=== PATIENT | male | born 1965 | race American Indian/Alaskan Native ===

== ENCOUNTER 2019-12-27 12:38 | Outpatient (REF) | payer OTHER, SELFPAY | END 2019-12-27 12:39 | disposition home or self-care (01) | LOC: HO.LAB 12:38 | PROVIDERS: Visit Provider Internal Medicine | DX: Z20.828 Contact with and (suspected) exposure to other viral communicable diseases (principal) | CPT/HCPCS: 87635 ==

== ENCOUNTER → 2020-01-03 13:04 | Outpatient (BNVA) | payer OTHER, SELFPAY | PROVIDERS: PCP Family Medicine; Referring Provider Family Medicine; Visit Provider Internal Medicine Endocrinology, Diabetes & Metabolism | DX: E11.65 Type 2 diabetes mellitus with hyperglycemia (principal); E11.21 Type 2 diabetes mellitus with diabetic nephropathy; Z79.4 Long term (current) use of insulin; E78.5 Hyperlipidemia, unspecified; I10 Essential (primary) hypertension; E55.9 Vitamin D deficiency, unspecified; E66.9 Obesity, unspecified; Z68.38 Body mass index [BMI] 38.0-38.9, adult; E21.3 Hyperparathyroidism, unspecified | CPT/HCPCS: 82947; 99212 ==

== ENCOUNTER → 2020-01-16 19:54 | Outpatient (REF) | payer OTHER, SELFPAY | LOC: HO.SL 19:54 | PROVIDERS: PCP Family Medicine; Visit Provider Psychiatry & Neurology Neurology | DX: G47.33 Obstructive sleep apnea (adult) (pediatric) (principal) | CPT/HCPCS: 95811 ==

== ENCOUNTER → 2020-01-29 08:31 | Outpatient (BNVA) | payer OTHER, SELFPAY | PROVIDERS: PCP Family Medicine; Referring Provider Family Medicine; Visit Provider Psychiatry & Neurology Neurology | DX: E11.21 Type 2 diabetes mellitus with diabetic nephropathy (principal); E78.5 Hyperlipidemia, unspecified; G47.33 Obstructive sleep apnea (adult) (pediatric); Z87.891 Personal history of nicotine dependence | CPT/HCPCS: Q3014 ==

== ENCOUNTER 2020-02-12 12:02 | Outpatient (REF) | payer OTHER, SELFPAY | END 2020-02-12 12:03 | disposition home or self-care (01) | LOC: HO.LAB 12:02 | PROVIDERS: Visit Provider Internal Medicine | DX: Z20.828 Contact with and (suspected) exposure to other viral communicable diseases (principal) | CPT/HCPCS: C9803; U0003 ==

== ENCOUNTER → 2020-03-25 11:02 | Outpatient (BNVA) | payer OTHER, SELFPAY | PROVIDERS: PCP Family Medicine; Visit Provider Psychiatry & Neurology Neurology | DX: G47.33 Obstructive sleep apnea (adult) (pediatric) (principal) | CPT/HCPCS: Q3014 ==

== ENCOUNTER 2020-04-03 11:08 | Outpatient (REF) | payer OTHER, SELFPAY | END 2020-04-03 11:09 | disposition home or self-care (01) | LOC: HO.LAB 11:08 | PROVIDERS: PCP Family Medicine; Visit Provider Internal Medicine | DX: Z20.822 Contact with and (suspected) exposure to COVID-19 (principal) | CPT/HCPCS: 36415; C9803; U0003 ==

== ENCOUNTER 2020-04-22 11:18 | Outpatient (REF) | payer OTHER, SELFPAY | END 2020-04-22 11:19 | disposition home or self-care (01) | LOC: HO.LAB 11:18 | PROVIDERS: PCP Family Medicine; Visit Provider Internal Medicine | DX: Z20.822 Contact with and (suspected) exposure to COVID-19 (principal) | CPT/HCPCS: 36415; C9803; U0003; U0005 ==

== ENCOUNTER 2020-04-30 09:54 | Outpatient (REF) | payer OTHER, SELFPAY | END 2020-04-30 09:55 | disposition home or self-care (01) | LOC: HO.LAB 09:54 | PROVIDERS: PCP Family Medicine; Visit Provider Internal Medicine | DX: Z20.822 Contact with and (suspected) exposure to COVID-19 (principal) | CPT/HCPCS: 36415; C9803; U0003; U0005 ==

== ENCOUNTER → 2020-05-20 11:16 | Outpatient (BNVA) | payer OTHER, SELFPAY | PROVIDERS: PCP Family Medicine; Visit Provider Psychiatry & Neurology Neurology | DX: G47.33 Obstructive sleep apnea (adult) (pediatric) (principal); E66.9 Obesity, unspecified; Z87.891 Personal history of nicotine dependence | CPT/HCPCS: Q3014 ==

== ENCOUNTER 2020-05-21 19:23 | Emergency (ER) | payer OTHER, SELFPAY ==
--- NOTE | 2020-05-21 | ECG_ITS ---
Test Reason : CHEST PAIN Blood Pressure : / mmHG Vent. Rate : 113 BPM Atrial Rate : 241 BPM P-R Int : 000 ms QRS Dur : 088 ms QT Int : 350 ms P-R-T Axes : 000 -19 035 degrees QTc Int : 480 ms Atrial fibrillation with rapid ventricular response Abnormal ECG When compared with ECG of 09-MAR-2019 12:01, Atrial fibrillation has replaced Sinus rhythm Referred By: Generic ED Physician Electronically Signed By:ARUN WEATHERS MD
[2020-05-21 19:42] VITALS: BP 115/87; PULSE 105; RESP 16; TEMP 36.7; O2SAT 97
== END 2020-05-21 23:22 | disposition left against medical advice (07) ==
PROVIDERS: Emergency Provider Emergency Medicine; PCP Family Medicine
DX: I10 Essential (primary) hypertension (principal)
CPT/HCPCS: 93005; 99283

== ENCOUNTER 2020-06-02 10:50 | Outpatient (REF) | payer OTHER, SELFPAY ==
[2020-06-02 12:41] LABS: Anion Gap 16 (12-20); Blood Urea Nitrogen 15 mg/dL (9-16); Calcium 8.6 mg/dL (8.4-10.2); Carbon Dioxide 24 mmol/L (22-29); Chloride 104 mmol/L (96-108); Estimated Glomerular Filt Rate > 60; Glucose Random 248 mg/dL (60-115); Potassium 4.1 mmol/L (3.3-5.1); Sodium 140 mmol/L (135-145)
== END 2020-06-02 10:51 | disposition home or self-care (01) ==
LOC: HO.LAB 10:50
PROVIDERS: PCP Family Medicine; Visit Provider Internal Medicine
DX: I48.0 Paroxysmal atrial fibrillation (principal); I48.3 Typical atrial flutter; I42.8 Other cardiomyopathies; R07.2 Precordial pain; I10 Essential (primary) hypertension; E11.8 Type 2 diabetes mellitus with unspecified complications; E66.01 Morbid (severe) obesity due to excess calories; G47.33 Obstructive sleep apnea (adult) (pediatric)
CPT/HCPCS: 36415; 80048; 93005; 99212

== ENCOUNTER → 2020-07-15 14:06 | Outpatient (BNVA) | payer OTHER, SELFPAY | PROVIDERS: PCP Family Medicine; Visit Provider Internal Medicine Endocrinology, Diabetes & Metabolism | DX: E11.65 Type 2 diabetes mellitus with hyperglycemia (principal); E11.21 Type 2 diabetes mellitus with diabetic nephropathy; Z79.4 Long term (current) use of insulin; E78.5 Hyperlipidemia, unspecified; E55.9 Vitamin D deficiency, unspecified; E66.9 Obesity, unspecified; I10 Essential (primary) hypertension | CPT/HCPCS: 82947; 99212 ==

== ENCOUNTER 2020-07-15 14:43 | Outpatient (REF) | payer OTHER, SELFPAY ==
[2020-07-15 15:14] LABS: COVID-19 Test Negative (Negative)
== END 2020-07-15 14:44 | disposition home or self-care (01) ==
LOC: HO.LAB 14:43
PROVIDERS: Visit Provider Internal Medicine
DX: Z20.822 Contact with and (suspected) exposure to COVID-19 (principal)
CPT/HCPCS: 36415; 87635; C9803

== ENCOUNTER → 2020-11-05 08:29 | Outpatient (BNVA) | payer OTHER, SELFPAY | PROVIDERS: PCP Family Medicine; Referring Provider Family Medicine; Visit Provider Internal Medicine | DX: I48.0 Paroxysmal atrial fibrillation (principal); I48.3 Typical atrial flutter; I42.8 Other cardiomyopathies; I10 Essential (primary) hypertension; R07.2 Precordial pain; E11.8 Type 2 diabetes mellitus with unspecified complications; E66.01 Morbid (severe) obesity due to excess calories; G47.33 Obstructive sleep apnea (adult) (pediatric) | CPT/HCPCS: 93005; 99212 ==

== ENCOUNTER → 2020-11-18 13:34 | Outpatient (BNVA) | payer OTHER, SELFPAY | PROVIDERS: PCP Family Medicine; Visit Provider Nurse Practitioner Gerontology | DX: E11.65 Type 2 diabetes mellitus with hyperglycemia (principal); E11.21 Type 2 diabetes mellitus with diabetic nephropathy; E78.5 Hyperlipidemia, unspecified; E55.9 Vitamin D deficiency, unspecified; E66.9 Obesity, unspecified; I10 Essential (primary) hypertension; Z79.4 Long term (current) use of insulin | CPT/HCPCS: 82947; 83036; 99212 ==

== ENCOUNTER 2020-12-08 11:20 | Outpatient (REF) | payer OTHER, SELFPAY | END 2020-12-08 11:21 | disposition home or self-care (01) | LOC: HO.LAB 11:20 | PROVIDERS: PCP Family Medicine; Visit Provider Internal Medicine | DX: Z20.822 Contact with and (suspected) exposure to COVID-19 (principal) | CPT/HCPCS: U0003; U0005 ==

== ENCOUNTER → 2020-12-10 12:46 | Outpatient (REF) | payer OTHER, SELFPAY ==
--- NOTE | 2020-12-10 12:50 | CA_ITS ---
Transthoracic Echocardiogram Patient (Last, First, Middle): Abraham Zhang, Gender: Male Date of : 1965 Age: 55 Procedure Date: 12/10/2020 Procedure Type: Transthoracic Echocardiogram Location: OP Height: 182.88 cm Weight: 117.94 kg BSA: 2.38 m2 Heart Rate: bpm BP: 120 / 70 mmHg Commonwealth Attorney: SUDARSHAN Referring MD: Matias Marcelino MD Symptoms: I42.8 - Other cardiomyopathies Study Quality: Technically Difficult/Contrast ECG Rhythm: Sinus Conclusions: - The left ventricular systolic function is normal. The calculated ejection fraction is 57% by biplane method. - No obvious valvular pathology seen on this study. - There is mild mitral annular calcification. Findings Procedure Information Contrast agent, definity, is being given per protocol without apparent complications. Left Ventricle Normal left ventricular cavity size. There is mildly increased left ventricular wall thickness. The left ventricular systolic function is normal. The calculated ejection fraction is 57% by biplane method. There is no evidence of regional wall motion abnormalities. Diastolic function is normal for age. Right Ventricle Normal right ventricular cavity size and systolic function. Atria Both atria are normal in size. Aortic Valve The aortic valve structure and function is likely normal. There is no aortic valve stenosis. There is no aortic valve regurgitation. Mitral Valve There is mild mitral annular calcification. There is no mitral valve regurgitation. There is no mitral valve stenosis. Pulmonic Valve The pulmonic valve was not well visualized. Tricuspid Valve Normal tricuspid valve structure. There is no tricuspid valve regurgitation. Tricuspid regurgitation envelope is inadequate for calculation of right ventricular systolic pressure. Great Vessels The aortic annulus, sinuses of valsalva, and asc aorta are normal in size. Venous The inferior vena cava is normal in size and collapses greater than 50% with inspiration. Pericardium/Pleural There is no evidence of pericardial effusion. Prior Study Comparison No significant change compared to prior study dated: 10/25/2019. Recommendations, Care & Conclusions No obvious valvular pathology seen on this study. Measurements 2D Linear Measurements IVSd: 1.13 0.6-0.9/0.6-1.0 cm LVIDd: 5.41 3.9-5.3/4.2-5.9 cm LVIDd Index: 2.27 2.4-3.2/2.2-3.1 cm/m2 LVIDs: 3.82 2.0-3.6 cm LVPWd: 1.13 0.7-1.1 cm Ao Root: 4.20 2.1-3.5 cm LA Diam: 3.60 2.7-3.8/3.0-4.0 cm LAIDs Index: 1.51 1.5-2.3 cm/m2 LV Mass: 304.59 67-162/88-224 g LV Mass Index: 127.98 43-95/49-115 g/m2 LVOT Diam: 2.40 3.0+(-)1.3 cm 2D Systolic Function EF 4C: 55.20 >55% EF 2C: 56.80 >55% EF BiP: 56.60 >55% Mitral Valve MV Pk E: 0.76 MV PK A: 0.60 MV Decel Time: 176.00 E/A: 1.30 E'Lateral: 11.60 E'Medial: 7.62 E/E' Med: 9.90 E/E' Lat: 6.50 PHT: 51.00 MVA PHT: 4.31 Decel Blount: 4.32 Aortic Valve AoV Pk Mohit: 1.22 AoV Mn Mohit: 0.95 AoV VTI: 0.23 AoV Pk Grad: 6.00 Aov Mn Grad: 4.00 KATIANA Cont.VTI: 3.42 LVOT LVOT Pk Mohit: 0.90 LVOT Mn Mohit: 0.64 LVOT VTI: 0.17 LVOT Pk Grad: 3.00 LVOT Mn Grad: 2.00 LVOT Diam: 2.40 LVOT Area: 4.52 Diastolic Function MV Pk E: 0.76 MV Pk A: 0.60 E/A: 1.30 E'Medial: 7.62 E/E' Med: 9.90 E' Laterial: 11.60 E/E' Lat: 6.50 Right Ventricle TAPSE (mm): 1.86 TVS' Mohit: 14.00 Tricuspid Valve RA Press: 3.00 Great Vessels Aorta Ao Root-2D: 4.20 2.0-3.7 cm Ao Asc: 3.70 2.1-3.4 cm Ao Arch: 3.30 Updated in Other Vendor System with Status of Final Matias Marcelino MD electronically signed on 12/11/2020 2:58:11 PM with status of Final
--- NOTE | 2020-12-10 14:00 | HM_ITS ---
Conclusion: 1. Patient was monitor for total period of 3 days 2. Underlying rhythm is sinus rhythm intermittent atrial fibrillation/flutter. Total burden of atrial flutter fibrillation at 41.16%. 3. Average heart rate is 91 beats per minute with inadequate rate control during atrial tachycardia/flutter, with longest episode of atrial flutter/tachycardia of 22 hours and 18 minutes 4. Doing sinus rhythm the heart rate is well controlled 5. No significant pauses noted 6. Total of 2141 PACs or cardiac bili 0.7% PACs occurring for occasional PACs 7. Patient reported 1 event correlates with sinus rhythm. MTDD
== END ==
LOC: HO.CARD 12:46
PROVIDERS: Visit Provider Internal Medicine
DX: I48.0 Paroxysmal atrial fibrillation (principal); I42.8 Other cardiomyopathies; J45.909 Unspecified asthma, uncomplicated
CPT/HCPCS: 93242; 93306; Q9957

== ENCOUNTER 2021-01-18 20:46 | Emergency (ER) | payer OTHER, SELFPAY ==
--- NOTE | 2021-01-18 | ECG_ITS ---
Test Reason : CHEST PAIN Blood Pressure : / mmHG Vent. Rate : 102 BPM Atrial Rate : 000 BPM P-R Int : 000 ms QRS Dur : 094 ms QT Int : 378 ms P-R-T Axes : 000 -14 025 degrees QTc Int : 492 ms Atrial fibrillation with rapid ventricular response Abnormal ECG When compared with ECG of 18Jan2021 Atrial fibrillation has replaced Atrial flutter with [address] less depressed in Lateral leads Referred By: Seda Klein Electronically Signed By:ALISIA MANN MD
--- NOTE | ~2021-01-18 | XR_ITS ---
EXAMINATION: XR CHEST CLINICAL INFORMATION: Chest pain. COMPARISON: 03/07/2019 portable chest. TECHNIQUE: Frontal view of the chest was obtained. FINDINGS: No significant abnormality is noted involving the heart, lungs, mediastinum, bony thorax or soft tissues. XR/XR chest 1V IMPRESSION: No acute cardiopulmonary process.
[2021-01-18 20:55] VITALS: BP 117/85; PULSE 155; RESP 18; TEMP 36.6; O2SAT 98; BMI 29.8
--- NOTE | 2021-01-18 21:15 | ED.CHESTPAIN ---
HPI - Chest Pain General Chief Complaint: Chest Pain Stated Complaint: chest pain Time Seen by Provider: 01/18/21 21:15 Source: patient Mode of arrival: ambulatory History of Present Illness HPI narrative: 55-year-old male with history of atrial flutter, diabetes, asthma who presents with onset of racing heart while watching TV. This was associated with some dizziness, shortness of breath but he denies any diaphoresis or nausea or chest pain. Patient states that he has recently had a few episodes of diarrhea that have resolved since yesterday and reports he has had some difficulty with urinating as well. Otherwise, he has received both COVID-19 vaccines and has otherwise been in good health and denies any alcohol or drug use. Related Data Home Medications Medication Instructions Recorded Confirmed alcohol swabs 0 pad TOPICAL 01/03/20 11/18/20 dabigatran etexilate 150 mg capsule 150 mg PO BID 01/03/20 11/18/20 divalproex 500 mg tablet,extended 0 mg PO 01/03/20 11/18/20 release 24 hr fluticasone propionate 50 1 spray INTRANASAL DAILY 01/03/20 11/18/20 mcg/actuation nasal spray,suspension melatonin 3 mg tablet 3 mg PO BEDTIME PRN 01/03/20 11/18/20 omeprazole 40 mg capsule,delayed 40 mg PO QAM PRN 01/03/20 11/18/20 release melatonin 5 mg tablet 5 mg PO BEDTIME PRN 11/18/20 11/18/20 Previous Rx's Medication Instructions Recorded atorvastatin 80 mg tablet 80 mg PO DAILY 90 Days #90 tab 07/15/20 cholecalciferol (vitamin D3) 50 50 mcg PO DAILY 90 Days #90 cap 07/15/20 mcg (2,000 unit) capsule dulaglutide 3 mg/0.5 mL 3 mg (0.5 mL) SUBCUT QWEEK 30 Days 07/15/20 subcutaneous pen [facility] lisinopril 5 mg tablet 5 mg PO DAILY 90 Days #90 tab 07/15/20 pen needle, diabetic 32 gauge x #100 ea 07/15/20 sotalol 80 mg tablet 160 mg PO BID #120 tab 09/04/20 FreeStyle Lite Strips (blood sugar #120 ea NS 09/25/20 diagnostic) lancets 33 gauge #150 ea 09/25/20 insulin regular hum U-500 conc 80 unit (0.16 mL) SUBCUT .Twice a 10/07/20 day 30 Days #12 ml empagliflozin 25 mg tablet 25 mg PO QAM 30 Days #30 tab 12/26/20 ezetimibe 10 mg tablet 10 mg PO QAM 30 Days #30 tab 12/26/20 Allergies Allergy/AdvReac Type Severity Reaction Status Date / Time Penicillins [PENICILLINS] Allergy Unknown UNKNOWN Verified 11/18/20 14:19 metformin AdvReac Unknown diarrhea Verified 11/18/20 14:19 Review of Systems Review of Systems: Pertinent positives and negatives as stated in HPI 10 point review systems is otherwise negative. [facility] Past Medical History Source: nursing notes reviewed Medical History Diabetes type 2, uncontrolled Diabetic nephropathy associated with type 2 diabetes mellitus Dyslipidemia Essential hypertension Hyperparathyroidism Hypertension senior living (current) use of insulin Morbid obesity Nonischemic cardiomyopathy Obesity CLAUDIA (obstructive sleep apnea) Paroxysmal A-fib Type 2 diabetes mellitus with unspecified complications Typical atrial flutter Vitamin D deficiency Surgical History History of radiofrequency ablation procedure for cardiac arrhythmia Hx of colonoscopy Family History Family History Father Cancer Diabetes CVD (cardiovascular disease) Mother Diabetes Social History Social History Alcohol intake: former Patient Tobacco Use Status: Former Tobacco user Substance Use Type: Crack/Cocaine and Marijuana Advance Directives: No Advance Directives Information Provided: No Physical Exam Vital Signs: Vital Signs: Last Vital Signs Temp 98 F 01/18/21 20:55 Pulse 104 H 01/19/21 00:08 Resp 16 01/19/21 00:08 BP 92/65 01/19/21 00:08 Pulse Ox 94 01/19/21 00:08 Body Mass Index 29.8 VITAL SIGNS: Reviewed. GENERAL: Obese, Well developed, well nourished, in no acute distress. HEAD: Normocephalic/atraumatic EYES: PERRLA, EOMI EARS: Ext canals without abnormality NOSE: Nares patent bilateral OROPHARYNX: no oral lesions noted, posterior pharynx clear NECK: Supple, no adenopathy LUNGS: Normal breath sounds, no tachypnea, no wheeze/rhonchi/rales. SpO2<98> CARDIOVASCULAR: Regular rate and rhythm without noted murmurs, no JVD or lower extremity edema. ABDOMEN: Obese, Soft, non-tender, non-distended with bowel sounds. MUSCULOSKELETAL: No tenderness, deformities, or effusions noted on gross inspection. EXTREMITIES: No cyanosis, clubbing or edema. SKIN: Inspection of the skin reveals no rashes NEUROLOGIC: Alert and oriented x 4. Strength and sensation to light touch were grossly intact x 4. Course Course Course Narrative: 55-year-old male with history and clinical presentation consistent with on review of EKG atrial flutter with RVR and stable blood pressure. Review of all investigations without acute findings, notably serial troponins are negative and on review of the EKG there are no significant changes when compared to prior EKG. Patient received 5 mg of Lopressor with good response and all symptoms have since resolved on re-evaluation. All results and findings were discussed with the patient at bedside and he was otherwise discharged in stable condition with strong recommendations to call Cardiology in the morning to set up an appointment for re-evaluation and further outpatient management. MDM - Chest Pain Lab Data Result diagrams: 01/18/21 21:39 01/18/21 21:37 Labs: Lab Results 01/18/21 01/18/21 01/18/21 Range/Units 21:37 21:37 21:37 WBC (4.8-10.8) X10*3/uL RBC (4.60-5.80) X10*6/uL Hgb (14.0-18.0) g/dl Hct (42.0-52.0) % MCV (80.0-98.0) fL MCH (27.0-33.0) pg MCHC (31.0-36.0) g/dl RDW (11.0-16.0) % Plt Count (160-400) X10*3/uL MPV (9.4-12.4) fL Immature Gran % (Auto) (0.0-0.4) % Neut % (Auto) (45-73) % Lymph % (Auto) (20-40) % [place] % (Auto) (2-11) % Eos % (Auto) (0-4) % Baso % (Auto) (0-2) % Lymph # (Auto) (1.2-4.9) X10*3/uL [place] # (Auto) (0.1-1.2) X10*3/uL Eos # (Auto) (0.0-0.4) X10*3/uL Baso # (Auto) (0.0-0.2) X10*3/uL Abs Immat Gran (auto) (0.00-0.03) X10*3/uL Absolute Neuts (auto) (2.0-8.3) x10*3/uL Absolute Nucleated RBC (0.0-0.012) X10*3/uL Nucleated RBC % (auto) (0.0-0.2) /100WBC PT (9.9-13.0) SEC INR (0.9-1.1) APTT (24.1-38.0) SEC Sodium 139 (135-145) mmol/L Potassium 4.1 (3.3-5.1) mmol/L Chloride 106 (96-108) mmol/L Carbon Dioxide 24 (22-29) mmol/L Anion Gap 13 (12-20) BUN 18 H (9-16) mg/dL Creatinine 0.87 (0.5-1.4) mg/dL Estim Creat Clear Calc 114.5 Estimated GFR > 60 Random Glucose 262 H (60-115) mg/dL Calcium 9.2 D (8.4-10.2) mg/dL Magnesium 2.0 (1.6-2.6) mg/dL Total Bilirubin 0.3 (0.0-1.0) mg/dL AST 24 (5-37) U/L ALT 33 (0-40) U/L Alkaline Phosphatase 99 (39-117) U/L Troponin I High Sens < 3.5 (<3.5-35.0) ng/L B-Natriuretic Peptide 47 (<100) pg/mL Total Protein 7.1 (6.5-8.0) g/dL Albumin 4.1 (3.5-5.0) g/dL Urine Color Urine Appearance Urine pH (5.0-8.0) Ur Specific [place] (1.005-1.025) Urine Protein (NEG-TRACE) MG/DL Urine Glucose (UA) (NEG) MG/DL Urine Ketones (NEG) MG/DL Urine Blood (NEG) Urine Nitrite (NEG) Ur Leukocyte Esterase (NEG) Urine RBC (0) /HPF Urine WBC (0-4) /HPF Ur Squamous Epith Cells /LPF Urine Bacteria /LPF Urine Mucus /LPF Urine Opiates Screen (Not Detect) Urine Fentanyl Screen (Not Detect) Ur Barbiturates Screen (Not Detect) Ur Phencyclidine Scrn (Not Detect) Ur Amphetamines Screen (Not Detect) U Benzodiazepines Scrn (Not Detect) Urine Cocaine Screen (Not Detect) U Marijuana (THC) Screen (Not Detect) Ethyl Alcohol < 10 mg/dL 01/18/21 01/18/21 01/18/21 Range/Units 21:39 22:23 22:23 WBC 5.8 (4.8-10.8) X10*3/uL RBC 4.51 L (4.60-5.80) X10*6/uL Hgb 13.9 L (14.0-18.0) g/dl Hct 42.1 (42.0-52.0) % MCV 93.3 (80.0-98.0) fL MCH 30.8 (27.0-33.0) pg MCHC 33.0 (31.0-36.0) g/dl RDW 13.0 (11.0-16.0) % Plt Count 185 (160-400) X10*3/uL MPV 9.7 (9.4-12.4) fL Immature Gran % (Auto) 0.5 H (0.0-0.4) % Neut % (Auto) 49.3 (45-73) % Lymph % (Auto) 39.1 (20-40) % [place] % (Auto) 8.0 (2-11) % Eos % (Auto) 2.4 (0-4) % Baso % (Auto) 0.7 (0-2) % Lymph # (Auto) 2.3 (1.2-4.9) X10*3/uL [place] # (Auto) 0.5 (0.1-1.2) X10*3/uL Eos # (Auto) 0.1 (0.0-0.4) X10*3/uL Baso # (Auto) 0.0 (0.0-0.2) X10*3/uL Abs Immat Gran (auto) 0.03 (0.00-0.03) X10*3/uL Absolute Neuts (auto) 2.9 (2.0-8.3) x10*3/uL Absolute Nucleated RBC 0.000 (0.0-0.012) X10*3/uL Nucleated RBC % (auto) 0.0 (0.0-0.2) /100WBC PT 13.4 H (9.9-13.0) SEC INR 1.2 H (0.9-1.1) APTT 61.8 H* (24.1-38.0) SEC Sodium (135-145) mmol/L Potassium (3.3-5.1) mmol/L Chloride (96-108) mmol/L Carbon Dioxide (22-29) mmol/L Anion Gap (12-20) BUN (9-16) mg/dL Creatinine (0.5-1.4) mg/dL Estim Creat Clear Calc Estimated GFR Random Glucose (60-115) mg/dL Calcium (8.4-10.2) mg/dL Magnesium (1.6-2.6) mg/dL Total Bilirubin (0.0-1.0) mg/dL AST (5-37) U/L ALT (0-40) U/L Alkaline Phosphatase (39-117) U/L Troponin I High Sens (<3.5-35.0) ng/L B-Natriuretic Peptide (<100) pg/mL Total Protein (6.5-8.0) g/dL Albumin (3.5-5.0) g/dL Urine Color STRAW Urine Appearance HAZY Urine pH 6.5 (5.0-8.0) Ur Specific [place] <= 1.005 (1.005-1.025) Urine Protein NEG (NEG-TRACE) MG/DL Urine Glucose (UA) >=1000 H (NEG) MG/DL Urine Ketones NEG (NEG) MG/DL Urine Blood NEG (NEG) Urine Nitrite NEG (NEG) Ur Leukocyte Esterase NEG (NEG) Urine RBC 0 (0) /HPF Urine WBC 0 (0-4) /HPF Ur Squamous Epith Cells NONE /LPF Urine Bacteria TRACE /LPF Urine Mucus TRACE /LPF Urine Opiates Screen (Not Detect) Urine Fentanyl Screen (Not Detect) Ur Barbiturates Screen (Not Detect) Ur Phencyclidine Scrn (Not Detect) Ur Amphetamines Screen (Not Detect) U Benzodiazepines Scrn (Not Detect) Urine Cocaine Screen (Not Detect) U Marijuana (THC) Screen (Not Detect) Ethyl Alcohol mg/dL 01/18/21 01/19/21 Range/Units 22:23 00:20 WBC (4.8-10.8) X10*3/uL RBC (4.60-5.80) X10*6/uL Hgb (14.0-18.0) g/dl Hct (42.0-52.0) % MCV (80.0-98.0) fL MCH (27.0-33.0) pg MCHC (31.0-36.0) g/dl RDW (11.0-16.0) % Plt Count (160-400) X10*3/uL MPV (9.4-12.4) fL Immature Gran % (Auto) (0.0-0.4) % Neut % (Auto) (45-73) % Lymph % (Auto) (20-40) % [place] % (Auto) (2-11) % Eos % (Auto) (0-4) % Baso % (Auto) (0-2) % Lymph # (Auto) (1.2-4.9) X10*3/uL [place] # (Auto) (0.1-1.2) X10*3/uL Eos # (Auto) (0.0-0.4) X10*3/uL Baso # (Auto) (0.0-0.2) X10*3/uL Abs Immat Gran (auto) (0.00-0.03) X10*3/uL Absolute Neuts (auto) (2.0-8.3) x10*3/uL Absolute Nucleated RBC (0.0-0.012) X10*3/uL Nucleated RBC % (auto) (0.0-0.2) /100WBC PT (9.9-13.0) SEC INR (0.9-1.1) APTT (24.1-38.0) SEC Sodium (135-145) mmol/L Potassium (3.3-5.1) mmol/L Chloride (96-108) mmol/L Carbon Dioxide (22-29) mmol/L Anion Gap (12-20) BUN (9-16) mg/dL Creatinine (0.5-1.4) mg/dL Estim Creat Clear Calc Estimated GFR Random Glucose (60-115) mg/dL Calcium (8.4-10.2) mg/dL Magnesium (1.6-2.6) mg/dL Total Bilirubin (0.0-1.0) mg/dL AST (5-37) U/L ALT (0-40) U/L Alkaline Phosphatase (39-117) U/L Troponin I High Sens < 3.5 (<3.5-35.0) ng/L B-Natriuretic Peptide (<100) pg/mL Total Protein (6.5-8.0) g/dL Albumin (3.5-5.0) g/dL Urine Color Urine Appearance Urine pH (5.0-8.0) Ur Specific [place] (1.005-1.025) Urine Protein (NEG-TRACE) MG/DL Urine Glucose (UA) (NEG) MG/DL Urine Ketones (NEG) MG/DL Urine Blood (NEG) Urine Nitrite (NEG) Ur Leukocyte Esterase (NEG) Urine RBC (0) /HPF Urine WBC (0-4) /HPF Ur Squamous Epith Cells /LPF Urine Bacteria /LPF Urine Mucus /LPF Urine Opiates Screen Not Detected (Not Detect) Urine Fentanyl Screen Not Detected (Not Detect) Ur Barbiturates Screen Not Detected (Not Detect) Ur Phencyclidine Scrn Not Detected (Not Detect) Ur Amphetamines Screen Not Detected (Not Detect) U Benzodiazepines Scrn Not Detected (Not Detect) Urine Cocaine Screen Not Detected (Not Detect) U Marijuana (THC) Screen Not Detected (Not Detect) Ethyl Alcohol mg/dL Discharge Plan Discharge Clinical Impression: Typical atrial flutter Patient Disposition: Home, Self-Care Instructions: Atrial Flutter (ED), Blood Thinners (ED) Additional Instructions: 1. Reanude todos los medicamentos caseros seg?n lo prescrito. 2. Llame al consultorio de francis cardi?logo por la ma?brittney para programar alise kary para alise reevaluaci?n y un tratamiento ambulatorio adicional. Regrese a la ana maria de emergencias si primo s?ntomas empeoran. Prescriptions: No Action sotalol 80 mg tablet 160 mg PO BID Qty: 120 RF: 5 (DME) FreeStyle Lite Strips Strip See Rx Instructions ea Not Applicable QID Qty: 120 RF: 6 (DME) lancets 33 gauge misc See Rx Instructions ea .ROUTE .MEDSUPPLY Qty: 150 RF: 5 insulin regular hum U-500 conc 500 unit/mL (3 mL) insulin pen 80 unit subcut .Twice a day 30 Days Qty: 12 RF: 2 empagliflozin 25 mg tablet 25 mg PO QAM 30 Days Qty: 30 RF: 4 ezetimibe 10 mg tablet 10 mg PO QAM 30 Days Qty: 30 RF: 4 divalproex 500 mg tablet extended release 24 hr 0 mg PO RF: 0 omeprazole 40 mg capsule,delayed release(DR/EC) 40 mg PO QAM PRNRF: 0 fluticasone propionate 50 mcg/actuation spray,suspension 1 spray intranasal DAILY RF: 0 alcohol swabs Pads, Medicated 0 pad topical RF: 0 Pradaxa 150 mg capsule 150 mg PO BID RF: 0 melatonin 3 mg tablet 3 mg PO BEDTIME PRNRF: 0 melatonin 5 mg tablet 5 mg PO BEDTIME PRNRF: 0 atorvastatin 80 mg tablet 80 mg PO DAILY 90 Days Qty: 90 RF: 1 cholecalciferol (vitamin D3) 50 mcg (2,000 unit) capsule 50 mcg PO DAILY 90 Days Qty: 90 RF: 1 Trulicity 3 mg/0.5 mL pen injector 3 mg subcut QWEEK 30 Days Qty: 2.5 RF: 6 lisinopril 5 mg tablet 5 mg PO DAILY 90 Days Qty: 90 RF: 4 (DME) pen needle, diabetic 32 gauge x 5/32 needle See Rx Instructions ea .ROUTE QID Qty: 100 RF: 10 Referrals: Hillary Zamora MD [Primary Care Provider] - 2 days Print Language: Indonesian
[2021-01-18 21:41] VITALS: BP 104/74; PULSE 150
[2021-01-18] MEDS: Metoprolol Tartrate 5 MG/5 ML VIAL IVPUSH (21:41)
[2021-01-18 21:44] LABS: MANUAL DIFF FLAG NO
[2021-01-18 21:45] LABS: Basophils Percent Auto 0.7 % (0-2); Eosinophils Absolute Auto 0.1 X10*3/uL (0.0-0.4); Eosinophils Percent Auto 2.4 % (0-4); Hematocrit 42.1 % (42.0-52.0); Hemoglobin 13.9 g/dl (14.0-18.0); Imm Gran Abs Auto 0.03 X10*3/uL (0.00-0.03); Imm Gran Pct Auto 0.5 % (0.0-0.4); Lymphocytes Absolute Auto 2.3 X10*3/uL (1.2-4.9); Lymphocytes Percent Auto 39.1 % (20-40); Mean Corpuscular Hemoglobin 30.8 pg (27.0-33.0); Mean Corpuscular Volume 93.3 fL (80.0-98.0); Mean Platelet Volume 9.7 fL (9.4-12.4); Monocytes Absolute Auto 0.5 X10*3/uL (0.1-1.2); Neutrophils Absolute Auto 2.9 x10*3/uL (2.0-8.3); Neutrophils Percent Auto 49.3 % (45-73); Platelet Count 185 X10*3/uL (160-400); Red Blood Count 4.51 X10*6/uL (4.60-5.80); White Blood Count 5.8 X10*3/uL (4.8-10.8)
--- NOTE | 2021-01-18 21:51 | PC.NURSE ---
BP 104/74 MD at bedside and aware of BP, per MD ok to give Lopressor IVP
--- NOTE | 2021-01-18 21:56 | ECG_ITS ---
Test Reason : CP Blood Pressure : / mmHG Vent. Rate : 150 BPM Atrial Rate : 150 BPM P-R Int : 096 ms QRS Dur : 096 ms QT Int : 350 ms P-R-T Axes : 000 -19 082 degrees QTc Int : 553 ms Atrial flutter with 2 to 1 block Left axis deviation Nonspecific ST abnormality Abnormal ECG When compared with ECG of 21-MAY-2020 19:38, Atrial flutter with 2 to 1 block has replaced Atrial fibrillation ST more depressed Lateral leads Referred By: Seda Klein Electronically Signed By:ALISIA MANN MD
[2021-01-18 22:03] LABS: Ethanol < 10 mg/dL
[2021-01-18 22:06] LABS: Troponin-I High Sensitivity < 3.5 ng/L (<3.5-35.0)
[2021-01-18 22:10] LABS: Alanine Aminotransferase 33 U/L (0-40); Albumin Level 4.1 g/dL (3.5-5.0); Alkaline Phosphatase 99 U/L (39-117); Anion Gap 13 (12-20); Aspartate Amino Transferase 24 U/L (5-37); Bilirubin Total 0.3 mg/dL (0.0-1.0); Blood Urea Nitrogen 18 mg/dL (9-16); Calcium 9.2 mg/dL (8.4-10.2); Carbon Dioxide 24 mmol/L (22-29); Chloride 106 mmol/L (96-108); Creatinine Clr Calc Pharmacy 114.5; Estimated Glomerular Filt Rate > 60; Glucose Random 262 mg/dL (60-115); Potassium 4.1 mmol/L (3.3-5.1); Sodium 139 mmol/L (135-145); Total Protein 7.1 g/dL (6.5-8.0)
[2021-01-18 22:30] LABS: Appearance Urine HAZY; Color Urine STRAW; Glucose Urine UA >=1000 MG/DL (NEG); Leukocyte Esterase Urine NEG (NEG); Nitrite Urine NEG (NEG); PH 6.5 (5.0-8.0); Specific Gravity - Urine <= 1.005 (1.005-1.025); Urine Blood NEG (NEG); Urine Ketones NEG (NEG); Urine Protein NEG (NEG-TRACE)
[2021-01-18 22:34] LABS: INTERNATIONAL NORM RATIO 1.2 (0.9-1.1); Prothrombin Time 13.4 SEC (9.9-13.0)
[2021-01-18 22:34] LABS: B Type Natriuretic Peptide 47 pg/mL (<100)
[2021-01-18 22:41] LABS: Bacteria Urine TRACE /LPF; Mucus Urine TRACE /LPF; RBC Urine 0 /HPF (0); WBC Urine 0 /HPF (0-4)
[2021-01-18 22:42] LABS: Partial Thromboplastin Time 61.8 SEC (24.1-38.0)
[2021-01-18 22:45] VITALS: BP 100/70; PULSE 104; RESP 16; O2SAT 93
[2021-01-18 22:45] LABS: Amphetamine Screen Urine Not Detected (Not Detect); Barbiturates, Urine Not Detected (Not Detect); Benzodiazepines Screen Urine Not Detected (Not Detect); Cannabinoid Screen Urine Not Detected (Not Detect); Cocaine Screen Urine Not Detected (Not Detect); Fentanyl, urine Not Detected (Not Detect); Opiate Screen Urine Not Detected (Not Detect); Phencyclidine Screen Urine Not Detected (Not Detect)
[2021-01-18 23:59] VITALS: PULSE 107
[2021-01-19 00:08] VITALS: BP 92/65; PULSE 104; RESP 16; O2SAT 94
[2021-01-19 00:54] LABS: Troponin-I High Sensitivity < 3.5 ng/L (<3.5-35.0)
[2021-01-19 01:49] VITALS: BP 98/68; PULSE 100; RESP 16; O2SAT 95
--- NOTE | 2021-01-19 02:01 | PC.NURSE ---
BP 98/68 Provider notified MD christie with pt vitals for d/c
== END 2021-01-19 02:03 | disposition home or self-care (01) ==
PROVIDERS: Emergency Provider Student in an Organized Health Care Education/Training Program; PCP Family Medicine
DX: I48.3 Typical atrial flutter (principal); E11.9 Type 2 diabetes mellitus without complications; I10 Essential (primary) hypertension; J45.909 Unspecified asthma, uncomplicated; Z79.4 Long term (current) use of insulin; Z79.899 Other long term (current) drug therapy
CPT/HCPCS: 36415; 71045; 80053; 80307; 81001; 82077; 83735; 83880; 84484; 85025; 85610; 85730; 93005; 96374; 99284

== ENCOUNTER → 2021-01-20 14:18 | Outpatient (BNVA) | payer OTHER, SELFPAY | PROVIDERS: PCP Family Medicine; Referring Provider Family Medicine; Visit Provider Internal Medicine | DX: I48.0 Paroxysmal atrial fibrillation (principal); I48.3 Typical atrial flutter; I42.8 Other cardiomyopathies; R07.2 Precordial pain; I10 Essential (primary) hypertension; R00.2 Palpitations; E11.65 Type 2 diabetes mellitus with hyperglycemia; E11.21 Type 2 diabetes mellitus with diabetic nephropathy; E66.01 Morbid (severe) obesity due to excess calories; E55.9 Vitamin D deficiency, unspecified; G47.33 Obstructive sleep apnea (adult) (pediatric); F14.10 Cocaine abuse, uncomplicated; F12.10 Cannabis abuse, uncomplicated; Z68.36 Body mass index [BMI] 36.0-36.9, adult; Z87.891 Personal history of nicotine dependence; Z88.0 Allergy status to penicillin; Z88.8 Allergy status to other drugs, medicaments and biological substances; Z79.4 Long term (current) use of insulin; Z79.899 Other long term (current) drug therapy | CPT/HCPCS: 93005; 99212 ==

== ENCOUNTER 2021-03-03 14:46 | Outpatient (REF) | payer OTHER, SELFPAY ==
[2021-03-03 15:50] LABS: Anion Gap 12 (12-20); Blood Urea Nitrogen 13 mg/dL (9-16); Carbon Dioxide 27 mmol/L (22-29); Chloride 105 mmol/L (96-108); Estimated Glomerular Filt Rate > 60; Glucose Random 219 mg/dL (60-115); Potassium 4.6 mmol/L (3.3-5.1); Sodium 139 mmol/L (135-145)
[2021-03-03 16:14] LABS: Free T4 (Free Thyroxine) 0.97 ng/dL (0.71-1.85); Thyroid Stimulating Hormone 1.78 uIU/mL (0.32-4.0)
== END 2021-03-03 14:47 | disposition home or self-care (01) ==
LOC: HO.LAB 14:46
PROVIDERS: PCP Family Medicine; Visit Provider Physician Assistant Medical
DX: I48.91 Unspecified atrial fibrillation (principal)
CPT/HCPCS: 36415; 80051; 82565; 82947; 84439; 84443; 84520

== ENCOUNTER 2021-03-04 07:50 | Outpatient (REF) | payer OTHER, SELFPAY | END 2021-03-04 07:51 | disposition home or self-care (01) | LOC: HO.LAB 07:50 | PROVIDERS: Visit Provider Internal Medicine | DX: Z20.822 Contact with and (suspected) exposure to COVID-19 (principal) | CPT/HCPCS: C9803; U0003; U0005 ==

== ENCOUNTER 2021-03-04 08:46 | Outpatient (REF) | payer OTHER, SELFPAY ==
[2021-03-04 10:10] LABS: Alanine Aminotransferase 33 U/L (0-40); Albumin Level 4.4 g/dL (3.5-5.0); Alkaline Phosphatase 96 U/L (39-117); Anion Gap 16 (12-20); Aspartate Amino Transferase 24 U/L (5-37); Bilirubin Total 0.6 mg/dL (0.0-1.0); Blood Urea Nitrogen 13 mg/dL (9-16); Calcium 9.8 mg/dL (8.4-10.2); Carbon Dioxide 23 mmol/L (22-29); Chloride 106 mmol/L (96-108); Cholesterol 132 mg/dL; Estimated Glomerular Filt Rate > 60; Glucose Fasting 197 mg/dL (60-99); HDL Cholesterol 23 mg/dL; LDL Cholesterol Calculated 70 mg/dl; Potassium 5.4 mmol/L (3.3-5.1); Sodium 140 mmol/L (135-145); Total Protein 7.7 g/dL (6.5-8.0); Triglycerides 196 mg/dL
[2021-03-04 10:47] LABS: Creatinine Urine 76.29 mg/dL; Microalbum/Creatinine Ratio Ur 52.4 ug/mg cr
[2021-03-05 04:42] LABS: LDL Cholesterol Direct 69 mg/dL (<100)
== END 2021-03-04 08:47 | disposition home or self-care (01) ==
LOC: HO.LAB 08:46
PROVIDERS: Absent Provider Nurse Practitioner Gerontology; PCP Family Medicine; Visit Provider Physician Assistant Medical
DX: I48.91 Unspecified atrial fibrillation (principal); E11.65 Type 2 diabetes mellitus with hyperglycemia; E55.9 Vitamin D deficiency, unspecified
CPT/HCPCS: 36415; 80053; 80061; 82043; 82306; 83721

== ENCOUNTER 2021-03-05 12:09 | Outpatient (REF) | payer OTHER, SELFPAY ==
[2021-03-05 13:03] LABS: Alanine Aminotransferase 32 U/L (0-40); Albumin Level 4.4 g/dL (3.5-5.0); Alkaline Phosphatase 88 U/L (39-117); Anion Gap 12 (12-20); Aspartate Amino Transferase 20 U/L (5-37); Bilirubin Total 0.5 mg/dL (0.0-1.0); Blood Urea Nitrogen 12 mg/dL (9-16); Calcium 9.9 mg/dL (8.4-10.2); Carbon Dioxide 29 mmol/L (22-29); Chloride 107 mmol/L (96-108); Estimated Glomerular Filt Rate > 60; Glucose Random 102 mg/dL (60-115); Potassium 4.5 mmol/L (3.3-5.1); Sodium 143 mmol/L (135-145); Total Protein 7.2 g/dL (6.5-8.0)
== END 2021-03-05 12:10 | disposition home or self-care (01) ==
LOC: HO.LAB 12:09
PROVIDERS: PCP Family Medicine; Visit Provider Nurse Practitioner Gerontology
DX: E11.8 Type 2 diabetes mellitus with unspecified complications (principal)
CPT/HCPCS: 36415; 80053

== ENCOUNTER → 2021-03-24 10:07 | Outpatient (BNVA) | payer OTHER, SELFPAY | PROVIDERS: PCP Family Medicine; Referring Provider Family Medicine; Visit Provider Nurse Practitioner | DX: Z12.11 Encounter for screening for malignant neoplasm of colon (principal); I48.0 Paroxysmal atrial fibrillation; I42.8 Other cardiomyopathies; E11.8 Type 2 diabetes mellitus with unspecified complications; E66.01 Morbid (severe) obesity due to excess calories; Z79.01 Long term (current) use of anticoagulants | CPT/HCPCS: 99202 ==

== ENCOUNTER → 2021-03-25 14:26 | Outpatient (BNVA) | payer OTHER, SELFPAY | PROVIDERS: PCP Family Medicine; Visit Provider Nurse Practitioner Gerontology | DX: E11.65 Type 2 diabetes mellitus with hyperglycemia (principal); E11.21 Type 2 diabetes mellitus with diabetic nephropathy; E78.5 Hyperlipidemia, unspecified; E55.9 Vitamin D deficiency, unspecified; E66.9 Obesity, unspecified; I10 Essential (primary) hypertension; Z79.4 Long term (current) use of insulin | CPT/HCPCS: Q3014 ==

== ENCOUNTER 2021-04-16 09:31 | Outpatient (REF) | payer OTHER, SELFPAY ==
--- NOTE | ~2021-04-16 | XR_ITS ---
EXAMINATION: XR LUMBAR SPINE XR HIP, RIGHT CLINICAL INFORMATION: Lower back pain. Right hip pain. COMPARISON: Most recent CT abdomen/pelvis dated 06/05/2018. TECHNIQUE: AP, lateral, and coned-down views of the lumbar spine. AP and frog-leg lateral view of the right hip. 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 No acute fracture or subluxation. The lumbar lordosis is maintained. No loss of vertebral body height. Loss of intervertebral disc height with anterior endplate osteophytes throughout the lumbar spine, most prominent at L3-L4 and L4-L5. Lower lumbar spine facet arthropathy. No lytic or blastic osseous lesion. RIGHT HIP: No acute fracture or dislocation. No significant joint space narrowing. Small acetabular marginal osteophytes with underlying subchondral cystic change. No abnormal soft tissue calcification. XR/XR lumbar spine 2-3V IMPRESSION: Lumbar Spine: Redemonstration of a transitional anatomy with 6 lumbar-type [id number] vertebral bodies. Multilevel degenerative disc disease and bilateral facet arthropathy, similar when compared to the CT from 2019. Right Hip: Mild osteoarthritis, not significantly changed.
--- NOTE | ~2021-04-16 | XR_ITS ---
EXAMINATION: XR LUMBAR SPINE XR HIP, RIGHT CLINICAL INFORMATION: Lower back pain. Right hip pain. COMPARISON: Most recent CT abdomen/pelvis dated 06/05/2018. TECHNIQUE: AP, lateral, and coned-down views of the lumbar spine. AP and frog-leg lateral view of the right hip. 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 No acute fracture or subluxation. The lumbar lordosis is maintained. No loss of vertebral body height. Loss of intervertebral disc height with anterior endplate osteophytes throughout the lumbar spine, most prominent at L3-L4 and L4-L5. Lower lumbar spine facet arthropathy. No lytic or blastic osseous lesion. RIGHT HIP: No acute fracture or dislocation. No significant joint space narrowing. Small acetabular marginal osteophytes with underlying subchondral cystic change. No abnormal soft tissue calcification. XR/XR hip RT min 2V IMPRESSION: Lumbar Spine: Redemonstration of a transitional anatomy with 6 lumbar-type hpj-quy-[id number] vertebral bodies. Multilevel degenerative disc disease and bilateral facet arthropathy, similar when compared to the CT from 2019. Right Hip: Mild osteoarthritis, not significantly changed.
== END 2021-04-16 09:32 | disposition home or self-care (01) ==
LOC: HO.XRAY 09:31
PROVIDERS: PCP Family Medicine; Visit Provider Family Medicine
DX: M25.551 Pain in right hip (principal); M54.50 Low back pain, unspecified
CPT/HCPCS: 72100; 73502

== ENCOUNTER → 2021-04-21 12:54 | Outpatient (BNVA) | payer OTHER, SELFPAY | PROVIDERS: PCP Family Medicine; Referring Provider Family Medicine; Visit Provider Internal Medicine | DX: I48.0 Paroxysmal atrial fibrillation (principal); I48.3 Typical atrial flutter; I42.8 Other cardiomyopathies; I10 Essential (primary) hypertension; R07.2 Precordial pain; E11.8 Type 2 diabetes mellitus with unspecified complications; G47.33 Obstructive sleep apnea (adult) (pediatric); E66.01 Morbid (severe) obesity due to excess calories; Z68.34 Body mass index [BMI] 34.0-34.9, adult | CPT/HCPCS: 93005; 99212 ==

== ENCOUNTER → 2021-07-22 11:22 | Outpatient (BNVA) | payer OTHER, SELFPAY | PROVIDERS: PCP Family Medicine; Referring Provider Family Medicine; Visit Provider Internal Medicine | DX: I48.0 Paroxysmal atrial fibrillation (principal); I48.3 Typical atrial flutter; I42.8 Other cardiomyopathies; R07.2 Precordial pain; E66.01 Morbid (severe) obesity due to excess calories; E11.8 Type 2 diabetes mellitus with unspecified complications; G47.33 Obstructive sleep apnea (adult) (pediatric); Z68.35 Body mass index [BMI] 35.0-35.9, adult | CPT/HCPCS: 93005; 99212 ==

== ENCOUNTER 2021-10-28 13:53 | Emergency (ER) | payer OTHER, SELFPAY ==
--- NOTE | ~2021-10-28 | XR_ITS ---
EXAMINATION: XR RIBS, LEFT CLINICAL INFORMATION: Fall with rib pain and tenderness COMPARISON: 01/19/2020 [place] TECHNIQUE: 3 views of the left ribs were obtained. PA view of the chest. FINDINGS: Lungs are clear. No consolidation, pneumothorax, or pleural effusion. The cardiomediastinal silhouette and pulmonary vasculature are normal. No acute osseous abnormality. Ribs are intact. No fractures are identified. Nonaggressive appearing lesion in the proximal left humeral diaphysis. XR/XR ribs LT min 3V w CXR1V IMPRESSION: Clear lungs. No focal rib abnormality identified.
--- NOTE | ~2021-10-28 | CT_ITS ---
EXAMINATION: NONCONTRAST HEAD CT NONCONTRAST CERVICAL SPINE CT INDICATION INFORMATION: Fall. On Pradaxa COMPARISON: 06/05/2018 TECHNIQUE: Separate noncontrast CT examinations of the head and cervical spine were performed. Coronal and sagittal images were created for each examination at the technologist workstation. This CT examination was performed using dose optimization techniques as appropriate, variously including the following: *Automated exposure control *Adjustment of mA and/or kV according to patient size (this includes techniques or standardized protocols for targeted exams where dose is matched to indication/reason for exam; i.e. extremities or head) *Use of iterative reconstruction technique DLP: 1558 mGy-cm FINDINGS: Head: There is no evidence of acute intracranial hemorrhage or territorial infarction. No abnormal mass effect or midline shift is seen. Reyez to white matter differentiation is well preserved. No extra-axial fluid collections are identified. No hydrocephalus. Proportional prominence of the ventricles and sulcal spaces is consistent with mild volume loss. Patchy periventricular and deep white matter hypoattenuation is consistent with mild small vessel ischemic changes. No acute osseous or soft tissue abnormality. Small mucus retention cyst in the left maxillary sinus. The mastoid air cells and visualized portions of the paranasal sinuses are otherwise well aerated. Cervical spine: There is anatomic alignment of the vertebral bodies and posterior elements. The atlantoaxial and atlantooccipital articulations are intact. Vertebral body heights are maintained. There is multilevel intervertebral disc space narrowing with endplate osteophyte formation and facet arthropathy. No evidence of acute fracture. No prevertebral soft tissue swelling. Mild paraseptal emphysema at the lung apices. The thyroid gland is unremarkable. CT/CT cervical spine wo con IMPRESSION: 1. No acute intracranial finding. 2. No fracture or malalignment of the cervical spine. Mild to moderate degenerative change.
--- NOTE | ~2021-10-28 | XR_ITS ---
EXAMINATION: XR LUMBOSACRAL SPINE CLINICAL INFORMATION: Fall with pain COMPARISON: 04/16/2021 TECHNIQUE: Three views of the lumbosacral spine. FINDINGS: 6 lumbar type vertebral bodies, suggesting lumbarization of S1. There is no fracture or subluxation. Vertebral body height and alignment maintained. Disc spaces are maintained. Multilevel endplate osteophytes are seen throughout. Mild facet arthropathy at the lower lumbar spine. The sacroiliac joints are symmetric. The visualized sacrum is intact. Normal bowel gas pattern. XR/XR lumbar spine 2-3V IMPRESSION: No acute abnormality. Mild degenerative changes throughout the lumbar spine.
[2021-10-28 14:04] VITALS: BP 124/73; PULSE 82; RESP 18; TEMP 36.1; O2SAT 94; BMI 38.0
--- NOTE | 2021-10-28 15:23 | ED_ITS ---
HPI - Fall General Chief Complaint: Fall Stated Complaint: fell down stairs diff breathing hip back pain Time Seen by Provider: 10/28/21 14:46 Source: patient Mode of arrival: ambulatory Limitations: no limitations History of Present Illness HPI Narrative: 56 yo male with history of obesity, afib on pradaxa, HTN, high cholesterol here with complaints of fall today down 5-6 stairs. Patient reports at the top of his stairs he lost his balance falling striking his left ribs on the railing and falling head over heels down the stairs. +head strike. No LOC. + headache, neck pain, left rib pain and low back pain Related Data Home Medications Medication Instructions Recorded Confirmed alcohol swabs 0 pad topical 01/03/20 07/22/21 divalproex 500 mg tablet,extended 0 mg PO 01/03/20 07/22/21 release 24 hr fluticasone propionate 50 1 spray intranasal DAILY 01/03/20 08/10/21 mcg/actuation nasal spray,suspension omeprazole 40 mg capsule,delayed 40 mg PO QAM PRN Heartburn 01/03/20 08/10/21 release melatonin 5 mg tablet 5 mg PO BEDTIME PRN Sleep 11/18/20 08/10/21 chlorhexidine gluconate 0.12 % ml PO BID 01/20/21 07/22/21 mouthwash primidone 50 mg tablet 50 mg PO BID 01/20/21 08/10/21 dabigatran etexilate 150 mg 1 cap PO BID 08/10/21 08/10/21 capsule (Pradaxa) Previous Rx's Medication Instructions Recorded pen needle, diabetic 32 gauge x #100 ea 07/15/20 FreeStyle Lite Strips (blood sugar #120 ea 09/25/20 diagnostic) peg 3350-electrolytes 236 240 ml PO Q10M 1 day #4,000 mL 03/24/21 gram-22.74 gram-6.74 gram-5.86 gram solution (Golytely) blood sugar diagnostic (FreeStyle #120 ea 04/03/21 Lite Strips) lancets 33 gauge #150 ea 06/26/21 insulin regular hum U-500 conc 500 80 unit (0.16 mL) subcut BID #12 mL 07/08/21 unit/mL(3 mL) subcut pen (Humulin R U-500 (Conc) Insulin Kwikpen) atorvastatin 80 mg tablet 80 mg PO DAILY 90 days #90 tabs 07/27/21 cholecalciferol (vitamin D3) 50 50 mcg PO QAM #90 caps 09/04/21 mcg (2,000 unit) capsule lisinopril 5 mg tablet 5 mg PO DAILY 90 days #90 tabs 09/25/21 dulaglutide 4.5 mg/0.5 mL 4.5 mg (0.5 mL) subcut QWEEK #2 mL 10/19/21 subcutaneous pen injector (Trulicity) sotalol 120 mg tablet (Sotalol AF) 120 mg PO BID #60 tabs 10/21/21 empagliflozin 25 mg tablet 25 mg PO QAM 30 days #30 tabs 10/23/21 ezetimibe 10 mg tablet 10 mg PO QAM 30 days #30 tabs 10/23/21 cyclobenzaprine 10 mg tablet 10 mg PO TID PRN muscle spasm #14 10/28/21 tabs lidocaine 5 % topical patch 1 patch topical DAILY #15 ea 10/28/21 (Lidoderm) Allergies Allergy/AdvReac Type Severity Reaction Status Date / Time Penicillins [PENICILLINS] Allergy Unknown UNKNOWN Verified 07/22/21 12:40 metformin AdvReac Unknown diarrhea Verified 07/22/21 12:40 Review of Systems Review of Systems: Yes all other systems are reviewed and are negative Constitutional: Constitutional: Reports no additional constitutional complaints, Denies body ache(s), Denies chills, Denies fever(s), Reports headache(s) and Denies weakness Eyes: Eyes: Reports no additional eye complaints and Denies change in vision ENT: Reports system reviewed and no additional complaints, except as documented, Denies dizziness, Reports headache(s), Denies nasal congestion, Den ies nasal discharge and Reports neck pain Cardiovascular: Cardiovascular: Reports no additional cardiovascular complaints, Reports chest pain, Denies leg edema and Denies dyspnea Respiratory: Respiratory: Reports no additional respiratory complaints, Denies cough and Denies dyspnea Gastrointestinal: Gastrointestinal: Reports no additional gastrointestinal complaints, Denies abdominal pain, Denies diarrhea, Denies nausea and Denies vom iting Genitourinary: Genitourinary: Denies urinary incontinence Musculoskeletal: Musculoskeletal: Reports no additional musculoskeletal complaints, Reports back pain, Denies arthralgias, Denies joint swelling, Reports neck pain, Denies numbness and Denies tingling Integumentary/Breasts: Skin/Breast: Reports system reviewed and no additional complaints, except as docu and Denies rash Neurologic: Reports system reviewed and no additional complaints, except as documented, Denies Abnormal speech present, Denies dizziness, Reports headache(s), Denies numbness, Denies tingling and Denies weakness [facility] Past Medical History Attestation statement: The following information was validated with the patient. 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 Morbid obesity Nonischemic cardiomyopathy Obesity CLAUDIA (obstructive sleep apnea) Paroxysmal A-fib Type 2 diabetes mellitus with unspecified complications Typical atrial flutter Vitamin D deficiency Surgical History History of radiofrequency ablation procedure for cardiac arrhythmia Hx of colonoscopy Family History Family History Father Cancer Diabetes CVD (cardiovascular disease) Mother Diabetes Social History Social History Alcohol intake: former Patient Tobacco Use Status: Former Tobacco user Substance Use Type: Crack/Cocaine and Marijuana Advance Directives: No Advance Directives Information Provided: No Physical Exam Vital Signs: Vital Signs: Last Vital Signs Temp 97 F 10/28/21 14:04 Pulse 82 10/28/21 14:04 Resp 18 10/28/21 14:04 BP 124/73 10/28/21 14:04 Pulse Ox 94 10/28/21 14:04 O2 Del Method 10/28/21 14:04 BMI result Body Mass Index 38.0 Const: General: cooperative, healthy appearing, comfortable and no acute distress Orientation/consciousness: patient oriented x3 Limitations: no limitations HEENT: Head: Yes normal to inspection, No Moreno's sign and No raccoon eyes Ears: hearing grossly normal bilaterally General nose exam: Normal external nose present Face and sinus: Yes normal facial exam Mouth: Normal oral and palatal mucosa present Throat: Yes posterior oropharynx normal Eyes: General: appearance normal, both eyes and all related structures Pupils: Equal, round and reactive pupils present Neck: Other: Midline cervical tenderness with no step-offs or deformities. Range of motion is not assessed due to cervical collar being in place Neck: Yes normal visual inspection Chest: Other: Tenderness the left lateral chest wall with no ecchymosis, crepitus or deformity Chest palpation & inspection: normal inspection of the chest Resp: Effort & Inspection: normal respiratory effort Auscultation: clear to auscultation bilaterally Cardio: Rate: regular rate Rhythm: regular rhythm Peripheral pulses: Peripheral pulses 2+ throughout GI: Inspection: Yes normal to inspection Palpation (GI): Soft to palpation and nontender Auscultation: normal bowel sounds Back/Spine/Pelvis: Other: Tenderness the lumbar mid spine with no step-offs deformities. Thoracic/Lumbar Spine: thoracic and lumbar spine normal to inspection Skin: General skin exam: no rashes or lesions noted Neuro: General: patient oriented x3, moves all extremities, no focal motor deficits and normal sensation to monofilament Cranial nerves: Yes CN's II-XII intact bilaterally, Yes Equal, round and reactive pupils present, Yes Bilaterally intact EOM present, Yes Nystagmus not present, Yes Normal facial strength present and Yes Midline tongue present Cognition (Neuro): normal cognition Speech: No Abnormal speech present Gait exam (Neuro): Normal gait present Motor exam (neuro): 5/5 motor strength present throughout Sensory Exam: Normal double simultaneous stimulation for sensation Deep tendon reflexes (DTR's): Right patellar reflex intensity grade: 2+ and Left patellar reflex intensity grade: 2+ Extrem: General: Yes normal to inspection Course Course Course Narrative: CT head/neck show no acute finding. X-rays of lumbar spine and ribs show no acute bony abnormality. Reviewed worrisome signs and symptoms of when to return to the emergency department. Comfortable discharge home. MDM - Fall MDM Narrative Medical decision making narrative: This is a 56-year-old male who is currently on Pradaxa for AFib who presents with a fall down several stairs with head strike now complaining of left-sided rib pain, low back pain and cervical tenderness. On arrival patient has normal neurological exam. His vital signs are stable. He will need CT head, CT cervical spine, x-rays the left ribs and lumbar spine. Considered fracture, contusion, sprain Medical Records Attestation: I reviewed the patient's medical records. Lab Data Attestation: I reviewed the patient's lab results. Imaging Data ribs x-ray: Attestation: I personally reviewed and interpreted this imaging study as follows: Radiologist's impression: EXAMINATION: XR RIBS, LEFT CLINICAL INFORMATION: Fall with rib pain and tenderness COMPARISON: 01/19/2020 [place] TECHNIQUE: 3 views of the left ribs were obtained. PA view of the chest. FINDINGS: Lungs are clear. No consolidation, pneumothorax, or pleural effusion. The cardiomediastinal silhouette and pulmonary vasculature are normal. No acute osseous abnormality. Ribs are intact. No fractures are identified. Nonaggressive appearing lesion in the proximal left humeral diaphysis. XR/XR ribs LT min 3V w CXR1V IMPRESSION: Clear lungs. No focal rib abnormality identified. ct head/cervical spine: Attestation: I personally reviewed and interpreted this imaging study as follows: Radiologist's impression: FINDINGS: Head: There is no evidence of acute intracranial hemorrhage or territorial infarction. No abnormal mass effect or midline shift is seen. Reyez to white matter differentiation is well preserved. No extra-axial fluid collections are identified. No hydrocephalus. Proportional prominence of the ventricles and sulcal spaces is consistent with mild volume loss. Patchy periventricular and deep white matter hypoattenuation is consistent with mild small vessel ischemic changes. No acute osseous or soft tissue abnormality. Small mucus retention cyst in the left maxillary sinus. The mastoid air cells and visualized portions of the paranasal sinuses are otherwise well aerated. Cervical spine: There is anatomic alignment of the vertebral bodies and posterior elements. The atlantoaxial and atlantooccipital articulations are intact. Vertebral body heights are maintained. There is multilevel intervertebral disc space narrowing with endplate osteophyte formation and facet arthropathy. No evidence of acute fracture. No prevertebral soft tissue swelling. Mild paraseptal emphysema at the lung apices. The thyroid gland is unremarkable. CT/CT cervical spine wo con IMPRESSION: ? 1. No acute intracranial finding. 2. No fracture or malalignment of the cervical spine. Mild to moderate degenerative change. ? lumbar xray: Attestation: I personally reviewed and interpreted this imaging study as follows: Radiologist's impression: FINDINGS: 6 lumbar type vertebral bodies, suggesting lumbarization of S1. There is no fracture or subluxation. Vertebral body height and alignment maintained. Disc spaces are maintained. Multilevel endplate osteophytes are seen throughout. Mild facet arthropathy at the lower lumbar spine. The sacroiliac joints are symmetric. The visualized sacrum is intact. Normal bowel gas pattern. XR/XR lumbar spine 2-3V IMPRESSION: No acute abnormality. Mild degenerative changes throughout the lumbar spine. Discharge Plan Discharge Clinical Impression: Cervical strain, Lumbar contusion, Contusion of rib on left side Patient Disposition: Home, Self-Care Instructions: Cervical Strain (ED), Contusion in Adults (ED) Additional Instructions: Your CT scan of your head and neck show no acute finding. Your x-rays of your ribs and lumbar spine show no fracture. You can apply ice to the affected area. Take Tylenol for pain at home. Follow-up with your primary care doctor in 1 week for any persistent symptoms Prescriptions: New cyclobenzaprine 10 mg tablet 10 mg PO TID PRN (Reason: muscle spasm) Qty: 14 0RF lidocaine [Lidoderm] 5 % adhesive patch,medicated 1 patch topical DAILY Qty: 15 0RF Rx Instructions: leave on most painful area for up to 12 hrs No Action (DME) FreeStyle Lite Strips Strip See Rx Instructions Not Applicable QID Qty: 120 6RF Rx Instructions: 4 times a day (DME) FreeStyle Lite Strips Strip See Rx Instructions .Route Qty: 120 11RF Rx Instructions: As directed test blood sugar 4 times daily (DME) lancets 33 gauge misc See Rx Instructions .ROUTE .MEDSUPPLY Qty: 150 5RF Rx Instructions: four times daily Humulin R U-500 (Conc) Kwikpen 500 unit/mL (3 mL) insulin pen 80 unit subcut BID Qty: 12 2RF atorvastatin 80 mg tablet 80 mg PO DAILY 90 Days Qty: 90 1RF cholecalciferol (vitamin D3) 50 mcg (2,000 unit) capsule 50 mcg PO QAM Qty: 90 0RF lisinopril 5 mg tablet 5 mg PO DAILY 90 Days Qty: 90 4RF Trulicity 4.5 mg/0.5 mL pen injector 4.5 mg subcut QWEEK Qty: 2 6RF sotalol [Sotalol AF] 120 mg tablet 120 mg PO BID Qty: 60 5RF empagliflozin 25 mg tablet 25 mg PO QAM 30 Days Qty: 30 4RF ezetimibe 10 mg tablet 10 mg PO QAM 30 Days Qty: 30 4RF Pradaxa 150 mg capsule 1 cap PO BID divalproex 500 mg tablet extended release 24 hr 0 mg PO omeprazole 40 mg capsule,delayed release(DR/EC) 40 mg PO QAM PRN (Reason: Heartburn) fluticasone propionate 50 mcg/actuation spray,suspension 1 spray intranasal DAILY alcohol swabs Pads, Medicated 0 pad topical melatonin 5 mg tablet 5 mg PO BEDTIME PRN (Reason: Sleep) (DME) pen needle, diabetic 32 gauge x needle See Rx Instructions .ROUTE QID Qty: 100 10RF Rx Instructions: Twice a day primidone 50 mg tablet 50 mg PO BID chlorhexidine gluconate 0.12 % mouthwash PO BID peg 3350-electrolytes [Golytely] 236-22.74-6.74 -5.86 gram recon soln 240 ml PO Q10M 1 Days Qty: 4000 0RF Rx Instructions: until fecal effluent is clear; do not exceed a total volume of 2,000 mL Referrals: Hillary Zamora MD [Primary Care Provider] - 1 week (For persistent symptoms)
[2021-10-28] MEDS: Acetaminophen 325 MG TABLET 975 MG PO (15:51)
== END 2021-10-28 17:56 | disposition home or self-care (01) ==
PROVIDERS: Emergency Provider Emergency Medicine; PCP Family Medicine
DX: S16.1XXA Strain of muscle, fascia and tendon at neck level, initial encounter (principal); S20.212A Contusion of left front wall of thorax, initial encounter; R51.9 Headache, unspecified; R07.81 Pleurodynia; I48.91 Unspecified atrial fibrillation; M54.50 Low back pain, unspecified; M54.2 Cervicalgia; I10 Essential (primary) hypertension; F14.90 Cocaine use, unspecified, uncomplicated; F12.90 Cannabis use, unspecified, uncomplicated; W10.9XXA Fall (on) (from) unspecified stairs and steps, initial encounter; Y93.9 Activity, unspecified; Y92.9 Unspecified place or not applicable; Y99.9 Unspecified external cause status; Z79.01 Long term (current) use of anticoagulants; Z79.899 Other long term (current) drug therapy; Z87.891 Personal history of nicotine dependence
CPT/HCPCS: 70450; 71101; 72100; 72125; 96365; 96366; 96375; 99282; 99284

== ENCOUNTER → 2021-11-03 09:59 | Outpatient (BNVA) | payer OTHER, SELFPAY | PROVIDERS: PCP Family Medicine; Referring Provider Family Medicine; Visit Provider Internal Medicine | DX: I48.0 Paroxysmal atrial fibrillation (principal); I48.3 Typical atrial flutter; I42.8 Other cardiomyopathies; R07.2 Precordial pain; E11.8 Type 2 diabetes mellitus with unspecified complications; E66.01 Morbid (severe) obesity due to excess calories; G47.33 Obstructive sleep apnea (adult) (pediatric); Z68.34 Body mass index [BMI] 34.0-34.9, adult | CPT/HCPCS: 93005; 99212 ==

== ENCOUNTER → 2021-12-21 10:43 | Outpatient (REF) | payer OTHER, SELFPAY ==
--- NOTE | 2021-12-21 10:46 | HM_ITS ---
Conclusion: 1. Patient was monitored for total period of 2 days and 23 hours 2. Baseline was atrial fibrillation with average heart rate of 103 beats per minute within adequate rate control, 35% of time heart rate greater than 100 beats per minute 3. No significant pauses or bradycardia noted 4. Very rare PVCs noted 5. Patient marker was activated 2 times but no reported symptoms, correlated with atrial fibrillation MTDD
--- NOTE | 2021-12-21 10:46 | CA_ITS ---
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 - No obvious valvular pathology seen on this study. Findings Procedure Information Contrast agent, definity, is being given per protocol without apparent complications. Left Ventricle Mildly increased left ventricular cavity size. There is moderately increased left ventricular wall thickness. The left ventricular systolic function is normal. There is no evidence of regional wall motion abnormalities. Diastolic function is indeterminate on the basis of available data. Visually estimated LVEF 50-60%. Right Ventricle Mildly increased right ventricular cavity size. There is mildly decreased right ventricular systolic function. Atria Both atria are normal in size. Aortic Valve There is a normal trileaflet aortic valve. There is no aortic valve stenosis. There is no aortic valve regurgitation. Mitral Valve The mitral valve appears normal. There is trace mitral valve regurgitation. There is no mitral valve stenosis. Pulmonic Valve The pulmonic valve is likely normal. Tricuspid Valve There is trace tricuspid valve regurgitation. There is no evidence of pulmonary hypertension. Great Vessels The asc aorta is normal in size. Venous The inferior vena cava is normal in size and collapses greater than 50% with inspiration. Pericardium/Pleural There is no evidence of pericardial effusion. Prior Study Comparison No significant change compared to prior study dated: 12/10/2020. Recommendations, Care & Conclusions No obvious valvular pathology seen on this study. Measurements 2D Linear Measurements IVSd: 1.37 0.6-0.9/0.6-1.0 cm LVIDd: 5.03 3.9-5.3/4.2-5.9 cm LVIDd Index: 2.10 2.4-3.2/2.2-3.1 cm/m2 LVIDs: 3.47 2.0-3.6 cm LVPWd: 1.11 0.7-1.1 cm LA Diam: 3.60 2.7-3.8/3.0-4.0 cm LAIDs Index: 1.50 1.5-2.3 cm/m2 LV Mass: 308.15 67-162/88-224 g LV Mass Index: 128.40 43-95/49-115 g/m2 LVOT Diam: 2.30 3.0+(-)1.3 cm 2D Systolic Function EF 4C: 74.00 >55% EF 2C: 56.20 >55% EF BiP: 64.80 >55% Mitral Valve MV Pk E: 0.71 Aortic Valve AoV Pk Mohit: 0.93 AoV Pk Grad: 3.00 LVOT LVOT Pk Mohit: 0.72 LVOT Mn Mohit: 0.49 LVOT VTI: 0.11 LVOT Pk Grad: 2.00 LVOT Mn Grad: 1.00 LVOT Diam: 2.30 LVOT Area: 4.15 Diastolic Function MV Pk E: 0.71 Right Ventricle TAPSE (mm): 14.60 TVS' Mohit: 12.40 Tricuspid Valve RA Press: 3.00 Great Vessels Aorta Sinus of Valsalva: 3.70 2.0-3.[address] Ridge: 3.11 1.7-3.4 cm Ao Asc: 3.60 2.1-3.4 cm Pulmonary Valve PV Pk Mohit: 0.79 Peak PV Grad: 3.00 Updated in Other Vendor System with Status of Final Matias Marcelino MD electronically signed on 12/21/2021 4:19:14 PM with status of Final
== END ==
LOC: HO.CARD 10:43
PROVIDERS: Visit Provider Internal Medicine
DX: I42.8 Other cardiomyopathies (principal); I48.91 Unspecified atrial fibrillation; I49.3 Ventricular premature depolarization
CPT/HCPCS: 93242; 93306; Q9957

== ENCOUNTER → 2022-01-06 11:19 | Outpatient (BNVA) | payer OTHER, SELFPAY | PROVIDERS: PCP Family Medicine; Visit Provider Internal Medicine Endocrinology, Diabetes & Metabolism | DX: E11.65 Type 2 diabetes mellitus with hyperglycemia (principal) | CPT/HCPCS: 82947; 83036; 99212 ==

== ENCOUNTER → 2022-03-16 08:19 | Outpatient (BNVA) | payer OTHER, SELFPAY | PROVIDERS: PCP Family Medicine; Visit Provider Registered Nurse Diabetes Educator | DX: E11.8 Type 2 diabetes mellitus with unspecified complications (principal); Z79.4 Long term (current) use of insulin | CPT/HCPCS: 99211 ==

== ENCOUNTER 2022-03-16 14:36 | Emergency (ER) | payer OTHER, SELFPAY ==
--- NOTE | ~2022-03-16 | XR_ITS ---
EXAMINATION: XR ANKLE, RIGHT CLINICAL INFORMATION: Status post twisting injury. Pain. COMPARISON: None TECHNIQUE: AP, lateral, and mortise views of the right ankle. FINDINGS: There is a small calcaneal heel and retrocalcaneal enthesophytes. Ankle mortise and subtalar joints are normal. No visible acute fracture, dislocation or subluxation seen. No soft tissue swelling seen. XR/XR ankle RT min 3V IMPRESSION: Small calcaneal heel and retrocalcaneal enthesophytes. No visible acute fracture or dislocation seen. No acute process. Small calcaneal heel and retrocalcaneal enthesophytes.
[2022-03-16 14:59] VITALS: BP 113/77; PULSE 94; RESP 18; TEMP 36.2; O2SAT 96; BMI 36.6
--- NOTE | 2022-03-16 15:01 | ED_ITS ---
HPI - Extremity Injury (Lower) General Chief Complaint: Extremity Injury, Lower <CHAVA Mendes - Last Filed: 03/16/22 15:02> Stated Complaint: R ankle inj <CHAVA Mendes - Last Filed: 03/16/22 15:02> Time Seen by Provider: 03/16/22 16:10 <CHAVA Mendes - Last Filed: 03/16/22 15:02> Source: patient <Lety Stephenson CNP - Last Filed: 03/16/22 17:04> Mode of arrival: ambulatory <Lety Stephenson CNP - Last Filed: 03/16/22 17:04> Limitations: no limitations <Lety Stephenson CNP - Last Filed: 03/16/22 17:04> History of Present Illness HPI Narrative: Patient is a 56-year-old male presents to the emergency department for evaluation of right ankle injury. Reports a days ago that he twisted the ankle, has been experiencing pain particularly with weight-bearing since then. Pain is diffuse but mostly to the anterior ankle. He is ambulatory with the use of a cane. Denies any numbness, tingling, cold sensation to the foot. Denies any calf pain, redness, swelling. <Lety Stephenson CNP - Last Filed: 03/16/22 17:04> Related Data Home Medications: Home Medications Medication Instructions Recorded Confirmed alcohol swabs 0 pad topical 01/03/20 11/03/21 divalproex 500 mg tablet,extended 0 mg PO 01/03/20 11/03/21 release 24 hr fluticasone propionate 50 1 spray intranasal DAILY 01/03/20 11/03/21 mcg/actuation nasal spray,suspension omeprazole 40 mg capsule,delayed 40 mg PO QAM PRN Heartburn 01/03/20 11/03/21 release melatonin 5 mg tablet 5 mg PO BEDTIME PRN Sleep 11/18/20 11/03/21 chlorhexidine gluconate 0.12 % ml PO BID 01/20/21 11/03/21 mouthwash primidone 50 mg tablet 50 mg PO BID 01/20/21 11/03/21 dabigatran etexilate 150 mg 150 mg PO BID 11/03/21 11/03/21 capsule (Pradaxa) blood-glucose meter (FreeStyle 01/06/22 Lite Meter kit) Previous Rx's Medication Instructions Recorded pen needle, diabetic 32 gauge x #100 ea 07/15/20 FreeStyle Lite Strips (blood sugar #120 ea 09/25/20 diagnostic) lancets 33 gauge #150 ea 06/26/21 lisinopril 5 mg tablet 5 mg PO DAILY 90 days #90 tabs 09/25/21 dulaglutide 4.5 mg/0.5 mL 4.5 mg (0.5 mL) subcut QWEEK #2 mL 10/19/21 subcutaneous pen injector (Trulicity) sotalol 120 mg tablet (Sotalol AF) 120 mg PO BID #60 tabs 10/21/21 cyclobenzaprine 10 mg tablet 10 mg PO TID PRN muscle spasm #14 10/28/21 tabs lidocaine 5 % topical patch 1 patch topical DAILY #15 ea 10/28/21 (Lidoderm) blood sugar diagnostic (FreeStyle #200 ea 01/06/22 Lite Strips) atorvastatin 80 mg tablet 80 mg PO DAILY 90 days #90 tabs 01/18/22 cholecalciferol (vitamin D3) 50 50 mcg PO QAM #90 ea 02/25/22 mcg (2,000 unit) capsule empagliflozin 25 mg tablet 25 mg PO QAM #30 tabs 03/10/22 (Jardiance) ezetimibe 10 mg tablet 10 mg PO QAM #30 tabs 03/10/22 insulin regular hum U-500 conc 500 80 unit (0.16 mL) subcut TIDWMEAL 03/16/22 unit/mL(3 mL) subcut pen (Humulin #12 mL R U-500 (Conc) Insulin Kwikpen) <CHAVA Mendes - Last Filed: 03/16/22 15:02> Allergies/Adverse Reactions: Allergies Allergy/AdvReac Type Severity Reaction Status Date / Time Penicillins [PENICILLINS] Allergy Unknown UNKNOWN Verified 01/06/22 11:27 metformin AdvReac Unknown diarrhea Verified 01/06/22 11:27 <CHAVA Mendes - Last Filed: 03/16/22 15:02> Review of Systems Review of Systems: Musculoskeletal: Traumatic right ankle pain as noted in HPI <Lety Stephenson CNP - Last Filed: 03/16/22 17:04> Yes all other systems are reviewed and are negative <Lety Stephenson CNP - Last Filed: 03/16/22 17:04> [facility] Past Medical History Attestation statement: The following information was validated with the patient. 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 Morbid obesity Nonischemic cardiomyopathy Obesity CLAUDIA (obstructive sleep apnea) Paroxysmal A-fib Type 2 diabetes mellitus with unspecified complications Typical atrial flutter Vitamin D deficiency <CHAVA Mendes - Last Filed: 03/16/22 15:02> Surgical History: Surgical History History of radiofrequency ablation procedure for cardiac arrhythmia Hx of colonoscopy <CHAVA Mendes - Last Filed: 03/16/22 15:02> Family History Family History: Family History Father Cancer Diabetes CVD (cardiovascular disease) Mother Diabetes <CHAVA Mendes - Last Filed: 03/16/22 15:02> Social History Social History: Social History Alcohol intake: former Patient Tobacco Use Status: Former Tobacco user Substance Use Type: Crack/Cocaine and Marijuana Advance Directives: No Advance Directives Information Provided: Yes <CHAVA Mendes - Last Filed: 03/16/22 15:02> Physical Exam Vital Signs: Vital Signs: Last Vital Signs Temp 97.1 F 03/16/22 14:59 Pulse 94 03/16/22 14:59 Resp 18 03/16/22 14:59 BP 113/77 03/16/22 14:59 Pulse Ox 96 03/16/22 14:59 O2 Del Method 03/16/22 14:59 BMI result Body Mass Index 36.6 <CHAVA Mendes - Last Filed: 03/16/22 15:02> Vital Signs: Last Vital Signs Temp 97.1 F 03/16/22 14:59 Pulse 94 03/16/22 14:59 Resp 18 03/16/22 14:59 BP 113/77 03/16/22 14:59 Pulse Ox 96 03/16/22 14:59 O2 Del Method 03/16/22 14:59 BMI result Body Mass Index 36.6 <Ltey Stephenson CNP - Last Filed: 03/16/22 17:04> Appearance: Alert.?Oriented to person, place and time. No acute distress.?Normal affect. Eyes: Pupils equal, round and reactive to light.? ENT: Pharynx normal.?? Neck: Normal inspection.? Neck supple.?? CVS: Heart sounds normal. Normal heart rate and rhythm.? Pulses normal.?? Respiratory: No respiratory distress.? Lung sounds clear to auscultation bilaterally?? Abdomen: Soft and non-tender. Skin: Skin warm and dry.? Normal skin color.? Extremities: No lower extremity edema.? No calf ttp. No swelling, deformity, lesions. 2+ DP/PT pulse bilaterally. Full AROM to left ankle. Neuro: Moves all extremities spontaneously. Sensation intact bilaterally. . Ambulates with normal steady gait. <Leyt Stephenson CNP - Last Filed: 03/16/22 17:04> Course Course Course Narrative: RME - 56-year-old male presents to the ER for evaluation of right ankle injury that occurred on March 08. He states he twisted his ankle and has been having pain and swelling since. Ambulates into the triage room using a cane. X-ray ordered. <CHAVA Mendes - Last Filed: 03/16/22 15:02> Medical Decision Making Medical Decision Making MDM Narrative: Patient is a 56-year-old male presents emergency department for evaluation of traumatic right ankle pain. Reviewed RME. XR imaging obtained of the right ankle reveals no acute fracture dislocation, heel spurs are present however patient reports a known history of this. At this time symptoms are most consistent with a sprain of the ankle, advised rest, ice, Orlin bandage for compression, elevation, acetaminophen/Tylenol for pain. Patient verbalizes understanding. He is ambulatory with a steady gait in the use of his cane. Advised outpatient follow-up with primary care provider as needed for persistent symptoms. Reviewed worrisome signs and symptoms that would warrant re- evaluation in the emergency department. <Lety Stephenson CNP - Last Filed: 03/16/22 17:04> Differential Diagnosis Differential Diagnoses: The differential diagnosis associated with the presentation includes (Fracture, dislocation, sprain) <Lety Stephenson CNP - Last Filed: 03/16/22 17:04> Independent Interpretation I performed an independent interpretation of an: Plain X-Ray (I have personally interpreted XR imaging of the right ankle and agree with radiologist impression) <Lety Stephenson CNP - Last Filed: 03/16/22 17:04> Radiology Impression Discussion of test interpretation with radiology: I have reviewed the radiologist's reading. <Lety Stephenson CNP - Last Filed: 03/16/22 17:04> Radiologist Impression: XR/XR ankle RT min 3V IMPRESSION: Small calcaneal heel and retrocalcaneal enthesophytes. No visible acute fracture or dislocation seen. No acute process. ? Small calcaneal heel and retrocalcaneal enthesophytes. <Lety Stephenson CNP - Last Filed: 03/16/22 17:04> Prescription Management I considered prescription management with: Pain Medication <Lety Stephenson CNP - Last Filed: 03/16/22 17:04> Discharge Plan Discharge Clinical Impression: Ankle sprain Qualifiers: Encounter type: initial encounter Laterality: right <CHAVA Mendes - Last Filed: 03/16/22 15:02> Patient Disposition: Home, Self-Care <CHAVA Mendes - Last Filed: 03/16/22 15:02> Instructions: Ankle Sprain (ED), R.I.C.E. Treatment (ED) <CHAVA Mendes - Last Filed: 03/16/22 15:02> Additional Instructions: As we discussed, the x-ray does not show any evidence of fracture dislocation. There was mention of the heel spurs which you are aware of. Please be sure to rest, apply ice/heat for 10-15 minutes 3-4 times daily, use Orlin bandage for compression, elevate the leg when possible. You can take ibuprofen 200 mg, 3 tablets (600mg) every 6-8 hours as needed for pain, in addition to Tylenol 500 mg, 2 tablets (1,000mg) every 4-6 hours as needed for pain, but not to exceed 3 doses daily (3,000mg).? Please contact your primary care provider to arrange for a follow-up visit as needed for persistent symptoms You may return back to emergency department any new or worsening symptoms or concerns. <CHAVA Mendes - Last Filed: 03/16/22 15:02> Prescriptions: No Action (DME) FreeStyle Lite Strips Strip See Rx Instructions Not Applicable QID Qty: 120 6RF Rx Instructions: 4 times a day (DME) lancets 33 gauge misc See Rx Instructions .ROUTE .MEDSUPPLY Qty: 150 5RF Rx Instructions: four times daily lisinopril 5 mg tablet 5 mg PO DAILY 90 Days Qty: 90 4RF Trulicity 4.5 mg/0.5 mL pen injector 4.5 mg subcut QWEEK Qty: 2 6RF sotalol [Sotalol AF] 120 mg tablet 120 mg PO BID Qty: 60 5RF atorvastatin 80 mg tablet 80 mg PO DAILY 90 Days Qty: 90 1RF cholecalciferol (vitamin D3) 50 mcg (2,000 unit) capsule 50 mcg PO QAM Qty: 90 5RF Jardiance 25 mg tablet 25 mg PO QAM Qty: 30 4RF ezetimibe 10 mg tablet 10 mg PO QAM Qty: 30 4RF Humulin R U-500 (Conc) Kwikpen 500 unit/mL (3 mL) insulin pen 80 unit subcut TIDWMEAL Qty: 12 2RF Pradaxa 150 mg capsule 150 mg PO BID cyclobenzaprine 10 mg tablet 10 mg PO TID PRN (Reason: muscle spasm) Qty: 14 0RF lidocaine [Lidoderm] 5 % adhesive patch,medicated 1 patch topical DAILY Qty: 15 0RF Rx Instructions: leave on most painful area for up to 12 hrs divalproex 500 mg tablet extended release 24 hr 0 mg PO omeprazole 40 mg capsule,delayed release(DR/EC) 40 mg PO QAM PRN (Reason: Heartburn) fluticasone propionate 50 mcg/actuation spray,suspension 1 spray intranasal DAILY alcohol swabs Pads, Medicated 0 pad topical melatonin 5 mg tablet 5 mg PO BEDTIME PRN (Reason: Sleep) (DME) pen needle, diabetic 32 gauge x 5/32 needle See Rx Instructions .ROUTE QID Qty: 100 10RF Rx Instructions: Twice a day primidone 50 mg tablet 50 mg PO BID chlorhexidine gluconate 0.12 % mouthwash PO BID (DME) blood-glucose meter [FreeStyle Lite Meter] Kit See Rx Instructions .Route Rx Instructions: As directed (DME) FreeStyle Lite Strips Strip See Rx Instructions .Route Qty: 200 11RF Rx Instructions: As directed test blood sugar 6 times daily <CHAVA Mendes - Last Filed: 03/16/22 15:02> Referrals: Hillary Zaomra MD [Primary Care Provider] - <CHAVA Mendes - Last Filed: 03/16/22 15:02>
== END 2022-03-16 17:10 | disposition home or self-care (01) ==
PROVIDERS: Emergency Provider Emergency Medicine Emergency Medical Services; PCP Family Medicine
DX: S93.401A Sprain of unspecified ligament of right ankle, initial encounter (principal); X50.1XXA Overexertion from prolonged static or awkward postures, initial encounter; M77.31 Calcaneal spur, right foot; Y93.9 Activity, unspecified; Y92.9 Unspecified place or not applicable; Y99.9 Unspecified external cause status
CPT/HCPCS: 73610; 99283

== ENCOUNTER 2022-03-17 16:21 | Emergency (ER) | payer OTHER, SELFPAY ==
--- NOTE | ~2022-03-17 | CT_ITS ---
EXAMINATION: CT HEAD WITHOUT CONTRAST CT CERVICAL SPINE WITHOUT CONTRAST CT MAXILLOFACIAL WITHOUT CONTRAST CLINICAL INFORMATION: headache, s/p fall, on Pradaxa COMPARISON: 10/28/2021 TECHNIQUE: Multidetector volumetric imaging of the head was performed without the administration of intravenous contrast. Images were also obtained with through the cervical spine as well as the facial bones from the frontal sinuses through the mandible. Multiplanar reconstructed images in coronal and sagittal orientations were submitted. This CT examination was performed using dose optimization techniques as appropriate, variously including the following: *Automated exposure control *Adjustment of mA and/or kV according to patient size (this includes techniques or standardized protocols for targeted exams where dose is matched to indication/reason for exam; i.e. extremities or head) *Use of iterative reconstruction technique DOSE: 2017 mGy-cm FINDINGS: HEAD: There is no evidence of acute intracranial hemorrhage or territorial infarction. No abnormal mass-effect or midline shift. No extra-axial fluid collections. Reyez to white matter differentiation is well preserved. Mild enlargement of the ventricles, sulci, and extra-axial CSF spaces is indicative of parenchymal volume loss. A few foci of hypoattenuation in the subcortical and periventricular white matter are most consistent with chronic microangiopathic changes. The soft tissues and osseous structures are normal. The sinuses and mastoid air cells are clear. MAXILLOFACIAL: There is a nondisplaced fracture through the nasal bone, asymmetric to the left, which appears acute and was not apparent on the prior studies. The mandible, maxilla, pterygoid plates, zygomatic arches, paranasal sinus diana, and bony orbits are intact. No acute osseous abnormality within the maxillofacial region. Mild mucosal thickening at the maxillary sinuses. Paranasal sinuses and mastoid air cells are otherwise clear. Small osteomas are evident in the left frontal sinus measuring 9 mm. No significant soft tissue findings. Leftward deviation of the nasal septum. There is periodontitis along the left maxillary incisor. CERVICAL SPINE: Vertebral body heights are normal. No fractures of the vertebral bodies or posterior elements. Reversal of the normal cervical lordosis is likely positional or degenerative. No vertebral body or posterior element subluxation. Degenerative changes are present at the craniocervical and atlantoaxial articulations, though normal alignment is maintained. Multilevel degenerative disc disease in the cervical spine is characterized by endplate osteophytes, endplate irregularity, loss of vertebral disc height, and uncovertebral osteophytes. Facet joints are normal. Posterior disc osteophytic protrusions are present at C5-C6 and C6-C7, producing at least mild to moderate central canal stenoses at these levels. Multilevel neural foraminal encroachment is evident bilaterally, left side greater than right, produce mostly by uncovertebral osteophytes, most notably at C3-C4 and C5-C6. No significant paravertebral soft tissue swelling. Cervical soft tissues are unremarkable. Imaged portions of the lung apices are clear. CT/CT cervical spine wo IV con IMPRESSION: 1. No acute intracranial pathology. 2. Probable nondisplaced nasal bone fracture, asymmetric to the left. No additional facial fractures. 3. No acute fracture or malalignment in the cervical spine. Multilevel degenerative spondylosis in the cervical spine.
--- NOTE | ~2022-03-17 | CT_ITS ---
EXAMINATION: CT CHEST, ABDOMEN AND PELVIS WITH CONTRAST CLINICAL INFORMATION: Fall with chest and abdominal trauma COMPARISON: CT abdomen and pelvis 06/05/2018 TECHNIQUE: Multidetector volumetric imaging was performed from the thoracic inlet through the pubic symphysis. Sagittal and coronal reformatted images were obtained on the technologist's workstation. Axial MIP volume rendering provided. Oral contrast: No. Intravenous contrast: 85 mL of Omnipaque 350. No contrast reaction reported. Sagittal and coronal reformatted images were obtained on the technologist's workstation. This CT examination was performed using dose optimization techniques as appropriate, variously including the following: *Automated exposure control *Adjustment of mA and/or kV according to patient size (this includes techniques or standardized protocols for targeted exams where dose is matched to indication/reason for exam; i.e. extremities or head) *Use of iterative reconstruction technique DLP: 1448 mGy-cm FINDINGS: CHEST: Lungs: No airspace consolidation. Mild biapical paraseptal emphysema are blebs. No pulmonary nodules identified. Central through segmental airways are clear. Mediastinum: No cardiomegaly. No pericardial effusion. Minimal LAD and left circumflex coronary artery vascular calcifications. Normal caliber thoracic aorta. No dissection flap or aneurysm. Unremarkable appearance of the aortic is less. Central pulmonary arteries enhance normally. No mediastinal hematoma. Variant direct origin of the left vertebral artery from the aortic arch noted. No mediastinal or hilar lymphadenopathy. Pericardium/Pleura: No pleural effusion or pneumothorax. Chest Wall/Axilla: Unremarkable. ABDOMEN/PELVIS: Liver, Gallbladder, Biliary Tree: Hepatic hypoattenuation/steatosis. Subcentimeter hypodense probable cyst in the upper left liver lobe, too small to characterize. Small calcification in the posterior segment right liver lobe. No suspicious liver lesion. No perihepatic fluid collection. No biliary ductal dilation. The gallbladder is unremarkable with no evidence of radiopaque gallstones, gallbladder wall thickening, or pericholecystic inflammatory changes. Pancreas: Unremarkable. Spleen: Unremarkable. Adrenal Glands: Unremarkable. Kidneys and Ureters: The kidneys are normal in size, shape, and attenuation. No hydronephrosis or hydroureter or calculi seen. Mild nonspecific symmetric perirenal fascial stranding. No perirenal fluid collection. Bladder: Unremarkable. Gastrointestinal Tract: No dilated bowel loops or bowel wall thickening. Normal appendix. No intra-abdominal free air or free fluid. Abdominal Wall: No hernia is demonstrated. Lymphovascular Structures: Lymph nodes: No lymphadenopathy. Vascular: Normal caliber abdominal aorta. No aneurysm or dissection. Scant scattered vascular calcifications. Pelvic Viscera: Unremarkable. OSSEOUS STRUCTURES: No acute fracture or suspicious osseous lesion. No subluxation in the thoracolumbar spine. Mild multilevel thoracolumbar degenerative disc disease. CT/CT abdomen pelvis w IV con IMPRESSION: 1. No acute traumatic injury identified in the chest, abdomen, or pelvis. 2. No intra-abdominal free air or free fluid. 3. No acute fracture identified. 4. Hepatic steatosis.
--- NOTE | ~2022-03-17 | XR_ITS ---
EXAMINATION: XR HAND, RIGHT CLINICAL INFORMATION: Right hand pain after fall COMPARISON: None TECHNIQUE: PA, lateral, and oblique views of the right hand. FINDINGS: There is a minimally displaced fracture through the base of the fifth proximal phalanx which does not involve the joint space no other fractures are seen. XR/XR hand RT min 3V IMPRESSION: Fracture of the base of the fifth proximal phalanx.
[2022-03-17 16:29] VITALS: BP 119/88; PULSE 90; RESP 18; TEMP 36.2; O2SAT 96; BMI 36.6
--- NOTE | 2022-03-17 16:29 | ED_ITS ---
HPI - Fall General Chief Complaint: Fall <CHAVA Mendes - Last Filed: 03/17/22 16:34> Stated Complaint: fall, lac on nose, hand injury <CHAVA Mendes - Last Filed: 03/17/22 16:34> Time Seen by Provider: 03/17/22 16:36 <CHAVA Mendes - Last Filed: 03/17/22 16:34> Source: patient <CHAVA Joseph - Last Filed: 03/17/22 19:40> Mode of arrival: ambulatory <CHAVA Joseph Last Filed: 03/17/22 19:40> Limitations: no limitations <CHAVA Joseph Last Filed: 03/17/22 19:40> History of Present Illness HPI Narrative: This is a 56-year-old male history of AFib afib on Pradaxa, nonischemic cardiomyopathy, DM2 on insulin, HTN, obesity, CLAUDIA presenting to the ER for evaluation of fall outside of a store about 40 minutes ago. Patient tells me he is not sure how he fell however he thinks he face planted, reports brief episode of loss of consciousness, he tells me was not able to get up from the ground by himself he needed help. He reports that he has abrasions to his nose and chin. Is currently reporting of headache, slight dizziness, fatigue, malaise and weakness. Patient does report that he has a right sprained ankle so he is not sure if this contributed to his fall. Cannot recall any preceding symptoms. Denies chest pain, shortness of breath, nausea, vomiting, abdominal pain, back pain. NIH stroke scale negative/0. GCS of 15. <CHAVA Joseph Last Filed: 03/17/22 19:40> Related Data Home Medications: Home Medications Medication Instructions Recorded Confirmed alcohol swabs 0 pad topical 01/03/20 11/03/21 divalproex 500 mg tablet,extended 0 mg PO 01/03/20 11/03/21 release 24 hr fluticasone propionate 50 1 spray intranasal DAILY 01/03/20 11/03/21 mcg/actuation nasal spray,suspension omeprazole 40 mg capsule,delayed 40 mg PO QAM PRN Heartburn 01/03/20 11/03/21 release melatonin 5 mg tablet 5 mg PO BEDTIME PRN Sleep 11/18/20 11/03/21 chlorhexidine gluconate 0.12 % ml PO BID 01/20/21 11/03/21 mouthwash primidone 50 mg tablet 50 mg PO BID 01/20/21 11/03/21 dabigatran etexilate 150 mg 150 mg PO BID 11/03/21 11/03/21 capsule (Pradaxa) blood-glucose meter (FreeStyle 01/06/22 Lite Meter kit) Previous Rx's Medication Instructions Recorded pen needle, diabetic 32 gauge x #100 ea 07/15/20 FreeStyle Lite Strips (blood sugar #120 ea 09/25/20 diagnostic) lancets 33 gauge #150 ea 06/26/21 lisinopril 5 mg tablet 5 mg PO DAILY 90 days #90 tabs 09/25/21 dulaglutide 4.5 mg/0.5 mL 4.5 mg (0.5 mL) subcut QWEEK #2 mL 10/19/21 subcutaneous pen injector (Trulicity) sotalol 120 mg tablet (Sotalol AF) 120 mg PO BID #60 tabs 10/21/21 cyclobenzaprine 10 mg tablet 10 mg PO TID PRN muscle spasm #14 10/28/21 tabs lidocaine 5 % topical patch 1 patch topical DAILY #15 ea 10/28/21 (Lidoderm) blood sugar diagnostic (FreeStyle #200 ea 01/06/22 Lite Strips) atorvastatin 80 mg tablet 80 mg PO DAILY 90 days #90 tabs 01/18/22 cholecalciferol (vitamin D3) 50 50 mcg PO QAM #90 ea 02/25/22 mcg (2,000 unit) capsule empagliflozin 25 mg tablet 25 mg PO QAM #30 tabs 03/10/22 (Jardiance) ezetimibe 10 mg tablet 10 mg PO QAM #30 tabs 03/10/22 insulin regular hum U-500 conc 500 80 unit (0.16 mL) subcut TIDWMEAL 03/16/22 unit/mL(3 mL) subcut pen (Humulin #12 mL R U-500 (Conc) Insulin Kwikpen) <CHAVA Mendes - Last Filed: 03/17/22 16:34> Allergies/Adverse Reactions: Allergies Allergy/AdvReac Type Severity Reaction Status Date / Time Penicillins [PENICILLINS] Allergy Unknown UNKNOWN Verified 03/17/22 16:32 metformin AdvReac Unknown diarrhea Verified 03/17/22 16:32 <CHAVA Mendes - Last Filed: 03/17/22 16:34> Review of Systems Review of Systems: Constitutional : No Weight loss, No Fever, No Chills, No Fatigue, No Malaise ENT/Mouth : No sore throat, No Rhinorrhea Eyes: No Eye Pain, No Swelling, No Redness Cardiovascular : No Chest Pain, No SOB, No Dyspnea on Exertion, No Orthopnea, No Edema, No Palpitations Respiratory : No Cough, No Sputum, No Wheezing Gastrointestinal : No Nausea, No Vomiting, No Diarrhea, No Constipation, No abdominal Pain, No Hematochezia, No Melena Genitourinary : No Dysuria, No Urinary Frequency, No Hematuria, Musculoskeletal : No joint pain, No Myalgias, No Joint Swelling Skin : No Skin Lesions, No rash Neuro : No Weakness, No Numbness, + Dizziness, + Headache Psych : No Anxiety/Panic, No Depression All other systems reviewed and are negative <CHAVA Joseph - Last Filed: 03/17/22 19:40> Yes all other systems are reviewed and are negative <CHAVA Joseph - Last Filed: 03/17/22 19:40> PMFSH Past Medical History Medical History: Medical History Diabetes type 2, uncontrolled Diabetic nephropathy associated with type 2 diabetes mellitus Dyslipidemia Essential hypertension Hyperparathyroidism 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 Morbid obesity Nonischemic cardiomyopathy Obesity CLAUDIA (obstructive sleep apnea) Paroxysmal A-fib Type 2 diabetes mellitus with unspecified complications Typical atrial flutter Vitamin D deficiency <CHAVA Mendes - Last Filed: 03/17/22 16:34> Surgical History: Surgical History History of radiofrequency ablation procedure for cardiac arrhythmia Hx of colonoscopy <CHAVA Mendes - Last Filed: 03/17/22 16:34> Family History Family History: Family History Father Cancer Diabetes CVD (cardiovascular disease) Mother Diabetes <CHAVA Mendes - Last Filed: 03/17/22 16:34> Social History Social History: Social History Alcohol intake: never Patient Tobacco Use Status: Former Tobacco user Smoked in Last 30 Days: No Use of substances other than those prescribed or required for medical reasons: No Substance Use Type: Crack/Cocaine and Marijuana Advance Directives: No Advance Directives Information Provided: Yes <CHAVA Mendes - Last Filed: 03/17/22 16:34> Physical Exam Vital Signs: Vital Signs: Last Vital Signs Temp 97.2 F 03/17/22 16:29 Pulse 138 H 03/17/22 18:18 Resp 16 03/17/22 18:16 BP 99/70 03/17/22 18:18 Pulse Ox 96 03/17/22 16:29 O2 Del Method 03/17/22 16:29 BMI result Body Mass Index 36.6 <CHAVA Mendes - Last Filed: 03/17/22 16:34> Vital Signs: Last Vital Signs Temp 97.2 F 03/17/22 16:29 Pulse 138 H 03/17/22 18:18 Resp 16 03/17/22 18:16 BP 99/70 03/17/22 18:18 Pulse Ox 96 03/17/22 16:29 O2 Del Method 03/17/22 16:29 BMI result Body Mass Index 36.6 Vital signs stable <CHAVA Joseph - Last Filed: 03/17/22 19:40> Appearance: Alert.? Oriented X3.? No acute distress.? Head: Normocephalic, atraumatic, no step-offs or deformities. Abrasions noted to nose and lower chin. Eyes: Pupils equal, round and reactive to light.? Neck: Normal inspection.? Neck supple.?Full ROM pain free. No step-offs or deformities CVS: Normal heart rate and rhythm.? Pulses normal.? Respiratory: No respiratory distress.? Breath sounds normal.? Abdomen: Soft and nontender.? Skin: Skin warm and dry.? Normal skin color.? Normal skin turgor.? Extremities: No lower extremity edema.? No calf ttp. 5/5 strength to bilateral upper and lower extremities Back: No midline tenderness, no C-spine tenderness, full range of motion, no CVA tenderness bilaterally Neuro: Oriented X 3.? No motor deficit.? No sensory deficit. CN 2-12 intact . Normal [id number], [id number], steady tandem gait with normal coordin ation. Negative Romberg and pronator drift. NIH stroke scale 0. GCS of 15. <CHAVA Joseph - Last Filed: 03/17/22 19:40> Course Course Course Narrative: RME - 56 yo male with history of afib on Pradaxa, nonischemic cardiomyopathy, DM2 on insulin, HTN, obesity, CLAUDIA presenting to the ER for evaluation of fall outside of a store about 40 minutes ago. Unsure the mechanism of the fall but fell onto his face and sustained a blood nose. Unsure if he LOC. Required assistance getting up due to dizziness. Doesn't think he had chest pain, dizziness, SOB or lightheadedness before the fall. Patient brought back directly to CT scan for brain, cervical spine, facial bones. Will get labs, EKG. <CHAVA Mendes - Last Filed: 03/17/22 16:34> Reevaluation(s) Reevaluation #1: CBC within normal limits. Chemistry with no acute findings requiring intervention. Troponin negative, EKG nonischemic, patient without chest pain or shortness of breath unlikely PE or ACS. Coags appear to be around patient's baseline. UA without infection. Urine toxicology negative. COVID negative. X-ray of the hand with fracture of the base of the 5th proximal phalanx, neurovascular status intact, patient did complain of hand pain to nurse that is why this test was added. Will be placed in finger splint. Initially patient did not complain of hand pain to this PA-C. Normal handgrip bilaterally. No wrist drop. CT of the chest with no acute traumatic injury. No acute traumatic injury in abdomen or pelvis. No acute fractures or dislocations on CT scans. CT of the head with no acute intracranial pathology. Nondisplaced nasal bone f racture, there is no nasal septal hematoma. Will have him follow up with ENT. No acute fracture malalignment the cervical spine. No intracranial pathology or intracranial hemorrhage. Neuro exam nonfocal. I did have a conversation with patient about admission for observation due to concern for possible syncope patient tells me he does not want to be admitted. He tells me he is fine and he tells me has an Apple watch to monitor his heart rate. To know at time of discharge patient's heart rate is not 138 believe this was put in an air. His heart rate is 95. I did repeat my physical exam and his heart rate is between 90-96 beats per minute. Patient appears well, does not complain of chest pain or shortness of breath. Discussed case with my attending Dr. Alaniz who agrees w/ dx and tx plan. At this time patient feeling well will discharge home. Advised to return with new or worsening symptoms. Educated patient on diagnosis and treatment plan, answered all question, patient verbalizes understanding. At this time patient will be discharged home, advised to return with new or worsening symptoms. Educated on worrisome signs and symptoms and when to return. At this time I fee l comfortable discharge home. To note, at time of discharge patient ambulating with steady gait, GCS 15, NIH stroke scale 0. <CHAVA Joseph - Last Filed: 03/17/22 19:40> Time: 19:28 <CHAVA Joseph - Last Filed: 03/17/22 19:40> Medications Administered Discontinued Medications Generic Name Dose Route Start Last Admin Trade Name Freq PRN Reason Stop Dose Admin Iohexol 100 ml 03/17/22 18:01 03/17/22 18:01 Iohexol 350 Mg/Ml 100 Ml Infus..Btl IV 03/17/22 18:02 85 ml ONCE ONE Administration Morphine Sulfate 4 mg 03/17/22 17:58 03/17/22 18:16 Morphine Sulfate 4 Mg/Ml Cartridge IVPUSH 03/17/22 17:59 4 mg ONCE ONE Administration Protocol <CHAVA Mendes - Last Filed: 03/17/22 16:34> Medications Administered Discontinued Medications Generic Name Dose Route Start Last Admin Trade Name Freq PRN Reason Stop Dose Admin Iohexol 100 ml 03/17/22 18:01 03/17/22 18:01 Iohexol 350 Mg/Ml 100 Ml Infus..Btl IV 03/17/22 18:02 85 ml ONCE ONE Administration Morphine Sulfate 4 mg 03/17/22 17:58 03/17/22 18:16 Morphine Sulfate 4 Mg/Ml Cartridge IVPUSH 03/17/22 17:59 4 mg ONCE ONE Administration Protocol <CHAVA Joseph - Last Filed: 03/17/22 19:40> Medical Decision Making Medical Decision Making MDM Narrative: 56 year old male presenting to the ER for evaluation of fall w/ head strike outside of a store about 40 minutes ago on pradaxa PE w/ abrasions to nose and chin. Plan- bacitracin to affected areas. Will rule out arrhythmia as, orthostatic hypotension, intracranial hemorrhage, electrolyte abnormality other traumatic injuries in the chest, abdomen and pelvis. No signs of cord compression or cervical fractures/dislocations <CHAVA Joseph - Last Filed: 03/17/22 19:40> Differential Diagnosis Differential Diagnoses: The differential diagnosis associated with the presentation includes <CHAVA Joseph - Last Filed: 03/17/22 19:40> Will rule out arrhythmia as, orthostatic hypotension, intracranial hemorrhage, electrolyte abnormality other traumatic injuries in the chest, abdomen and pelvis. No signs of cord compression or cervical fractures/dislocations <CHAVA Joseph Last Filed: 03/17/22 19:40> Admission/Observation Consideration of admission/observation: Escalation of care including admission/observation considered <CHAVA Joseph Last Filed: 03/17/22 19:40> Lab Data Result Diagrams: 03/17/22 17:06 03/17/22 17:06 <CHAVA Mendes - Last Filed: 03/17/22 16:34> Labs: Lab Results 03/17/22 03/17/22 03/17/22 Range/Units 16:53 17:06 17:06 WBC 6.0 (4.8-10.8) X10*3/uL RBC 4.60 (4.60-5.80) X10*6/uL Hgb 14.3 (14.0-18.0) g/dl Hct 43.1 (42.0-52.0) % MCV 93.7 (80.0-98.0) fL MCH 31.1 (27.0-33.0) pg MCHC 33.2 (31.0-36.0) g/dl RDW 13.2 (11.0-16.0) % Plt Count 196 (160-400) X10*3/uL MPV 9.7 (9.4-12.4) fL Immature Gran % (Auto) 0.5 H (0.0-0.4) % Neut % (Auto) 62.7 (45-73) % Lymph % (Auto) 27.0 (20-40) % [place] % (Auto) 7.6 (2-11) % Eos % (Auto) 1.7 (0-4) % Baso % (Auto) 0.5 (0-2) % Lymph # (Auto) 1.6 (1.2-4.9) X10*3/uL [place] # (Auto) 0.5 (0.1-1.2) X10*3/uL Eos # (Auto) 0.1 (0.0-0.4) X10*3/uL Baso # (Auto) 0.0 (0.0-0.2) X10*3/uL Abs Immat Gran (auto) 0.03 (0.00-0.03) X10*3/uL Absolute Neuts (auto) 3.8 (2.0-8.3) x10*3/uL Absolute Nucleated RBC 0.000 (0.0-0.012) X10*3/uL Nucleated RBC % (auto) 0.0 (0.0-0.2) /100WBC PT (10.0-13.1) SEC INR (0.9-1.1) APTT (26.0-36.4) SEC Sodium 140 (135-145) mmol/L Potassium 3.8 (3.3-5.1) mmol/L Chloride 106 (96-108) mmol/L Carbon Dioxide 24 (22-29) mmol/L Anion Gap 14 (12-20) BUN 13 (9-16) mg/dL Creatinine 0.77 (0.5-1.4) mg/dL Estim Creat Clear Calc 141.3 Estimated GFR > 60 POC Glucose 210 H (60-115) mg/dL Random Glucose 226 H (60-115) mg/dL Calcium 9.1 D (8.4-10.2) mg/dL Magnesium 1.7 (1.6-2.6) mg/dL Total Bilirubin 0.7 (0.0-1.0) mg/dL Direct Bilirubin 0.2 (0.0-0.5) mg/dL AST 22 (5-37) U/L ALT 28 (0-40) U/L Alkaline Phosphatase 79 (39-117) U/L Troponin I High Sens (<3.5-35.0) ng/L Total Protein 6.8 (6.5-8.0) g/dL Albumin 4.1 (3.5-5.0) g/dL Urine Color Urine Appearance Urine pH (5.0-9.0) Ur Specific [place] (1.005-1.025) Urine Protein (Neg-Trace) mg/dL Urine Glucose (UA) (Negative) mg/dL Urine Ketones (Negative) mg/dL Urine Blood (Negative) Urine Nitrite (Negative) Ur Leukocyte Esterase (Negative) Urine RBC (0-2) /HPF Urine WBC (0-5) /HPF Ur Squamous Epith Cells (0-2) /HPF Urine Bacteria (None Seen) Hyaline Casts (0-2) /LPF Urine Opiates Screen (Not Detect) Urine Fentanyl Screen (Not Detect) Ur Barbiturates Screen (Not Detect) Ur Phencyclidine Scrn (Not Detect) Ur Amphetamines Screen (Not Detect) U Benzodiazepines Scrn (Not Detect) Urine Cocaine Screen (Not Detect) U Marijuana (THC) Screen (Not Detect) Ethyl Alcohol mg/dL COVID-19 (TRAM) (Negative) COVID-19 Clin Com 03/17/22 03/17/22 03/17/22 Range/Units 17:06 17:06 17:06 WBC (4.8-10.8) X10*3/uL RBC (4.60-5.80) X10*6/uL Hgb (14.0-18.0) g/dl Hct (42.0-52.0) % MCV (80.0-98.0) fL MCH (27.0-33.0) pg MCHC (31.0-36.0) g/dl RDW (11.0-16.0) % Plt Count (160-400) X10*3/uL MPV (9.4-12.4) fL Immature Gran % (Auto) (0.0-0.4) % Neut % (Auto) (45-73) % Lymph % (Auto) (20-40) % [place] % (Auto) (2-11) % Eos % (Auto) (0-4) % Baso % (Auto) (0-2) % Lymph # (Auto) (1.2-4.9) X10*3/uL [place] # (Auto) (0.1-1.2) X10*3/uL Eos # (Auto) (0.0-0.4) X10*3/uL Baso # (Auto) (0.0-0.2) X10*3/uL Abs Immat Gran (auto) (0.00-0.03) X10*3/uL Absolute Neuts (auto) (2.0-8.3) x10*3/uL Absolute Nucleated RBC (0.0-0.012) X10*3/uL Nucleated RBC % (auto) (0.0-0.2) /100WBC PT 13.5 H (10.0-13.1) SEC INR 1.2 H (0.9-1.1) APTT 43.3 H (26.0-36.4) SEC Sodium (135-145) mmol/L Potassium (3.3-5.1) mmol/L Chloride (96-108) mmol/L Carbon Dioxide (22-29) mmol/L Anion Gap (12-20) BUN (9-16) mg/dL Creatinine (0.5-1.4) mg/dL Estim Creat Clear Calc Estimated GFR POC Glucose (60-115) mg/dL Random Glucose (60-115) mg/dL Calcium (8.4-10.2) mg/dL Magnesium (1.6-2.6) mg/dL Total Bilirubin (0.0-1.0) mg/dL Direct Bilirubin (0.0-0.5) mg/dL AST (5-37) U/L ALT (0-40) U/L Alkaline Phosphatase (39-117) U/L Troponin I High Sens < 3.5 (<3.5-35.0) ng/L Total Protein (6.5-8.0) g/dL Albumin (3.5-5.0) g/dL Urine Color Urine Appearance Urine pH (5.0-9.0) Ur Specific [place] (1.005-1.025) Urine Protein (Neg-Trace) mg/dL Urine Glucose (UA) (Negative) mg/dL Urine Ketones (Negative) mg/dL Urine Blood (Negative) Urine Nitrite (Negative) Ur Leukocyte Esterase (Negative) Urine RBC (0-2) /HPF Urine WBC (0-5) /HPF Ur Squamous Epith Cells (0-2) /HPF Urine Bacteria (None Seen) Hyaline Casts (0-2) /LPF Urine Opiates Screen (Not Detect) Urine Fentanyl Screen (Not Detect) Ur Barbiturates Screen (Not Detect) Ur Phencyclidine Scrn (Not Detect) Ur Amphetamines Screen (Not Detect) U Benzodiazepines Scrn (Not Detect) Urine Cocaine Screen (Not Detect) U Marijuana (THC) Screen (Not Detect) Ethyl Alcohol mg/dL COVID-19 (TRAM) Negative (Negative) COVID-19 Clin Com See Note 03/17/22 03/17/22 03/17/22 Range/Units 17:06 18:09 18:09 WBC (4.8-10.8) X10*3/uL RBC (4.60-5.80) X10*6/uL Hgb (14.0-18.0) g/dl Hct (42.0-52.0) % MCV (80.0-98.0) fL MCH (27.0-33.0) pg MCHC (31.0-36.0) g/dl RDW (11.0-16.0) % Plt Count (160-400) X10*3/uL MPV (9.4-12.4) fL Immature Gran % (Auto) (0.0-0.4) % Neut % (Auto) (45-73) % Lymph % (Auto) (20-40) % [place] % (Auto) (2-11) % Eos % (Auto) (0-4) % Baso % (Auto) (0-2) % Lymph # (Auto) (1.2-4.9) X10*3/uL [place] # (Auto) (0.1-1.2) X10*3/uL Eos # (Auto) (0.0-0.4) X10*3/uL Baso # (Auto) (0.0-0.2) X10*3/uL Abs Immat Gran (auto) (0.00-0.03) X10*3/uL Absolute Neuts (auto) (2.0-8.3) x10*3/uL Absolute Nucleated RBC (0.0-0.012) X10*3/uL Nucleated RBC % (auto) (0.0-0.2) /100WBC PT (10.0-13.1) SEC INR (0.9-1.1) APTT (26.0-36.4) SEC Sodium (135-145) mmol/L Potassium (3.3-5.1) mmol/L Chloride (96-108) mmol/L Carbon Dioxide (22-29) mmol/L Anion Gap (12-20) BUN (9-16) mg/dL Creatinine (0.5-1.4) mg/dL Estim Creat Clear Calc Estimated GFR POC Glucose (60-115) mg/dL Random Glucose (60-115) mg/dL Calcium (8.4-10.2) mg/dL Magnesium (1.6-2.6) mg/dL Total Bilirubin (0.0-1.0) mg/dL Direct Bilirubin (0.0-0.5) mg/dL AST (5-37) U/L ALT (0-40) U/L Alkaline Phosphatase (39-117) U/L Troponin I High Sens (<3.5-35.0) ng/L Total Protein (6.5-8.0) g/dL Albumin (3.5-5.0) g/dL Urine Color Yellow Urine Appearance Clear Urine pH 6.0 (5.0-9.0) Ur Specific [place] 1.010 (1.005-1.025) Urine Protein Negative (Neg-Trace) mg/dL Urine Glucose (UA) >=1000 H (Negative) mg/dL Urine Ketones 40 (Negative) mg/dL Urine Blood Negative (Negative) Urine Nitrite Negative (Negative) Ur Leukocyte Esterase Negative (Negative) Urine RBC 0-2 (0-2) /HPF Urine WBC 0-5 (0-5) /HPF Ur Squamous Epith Cells 0-2 (0-2) /HPF Urine Bacteria None Seen (None Seen) Hyaline Casts 0-2 (0-2) /LPF Urine Opiates Screen Not Detected (Not Detect) Urine Fentanyl Screen Not Detected (Not Detect) Ur Barbiturates Screen Not Detected (Not Detect) Ur Phencyclidine Scrn Not Detected (Not Detect) Ur Amphetamines Screen Not Detected (Not Detect) U Benzodiazepines Scrn Not Detected (Not Detect) Urine Cocaine Screen Not Detected (Not Detect) U Marijuana (THC) Screen Not Detected (Not Detect) Ethyl Alcohol < 10 mg/dL COVID-19 (TRAM) (Negative) COVID-19 Clin Com <CHAVA Mendes - Last Filed: 03/17/22 16:34> Lab Results 03/17/22 03/17/22 03/17/22 Range/Units 16:53 17:06 17:06 WBC 6.0 (4.8-10.8) X10*3/uL RBC 4.60 (4.60-5.80) X10*6/uL Hgb 14.3 (14.0-18.0) g/dl Hct 43.1 (42.0-52.0) % MCV 93.7 (80.0-98.0) fL MCH 31.1 (27.0-33.0) pg MCHC 33.2 (31.0-36.0) g/dl RDW 13.2 (11.0-16.0) % Plt Count 196 (160-400) X10*3/uL MPV 9.7 (9.4-12.4) fL Immature Gran % (Auto) 0.5 H (0.0-0.4) % Neut % (Auto) 62.7 (45-73) % Lymph % (Auto) 27.0 (20-40) % [place] % (Auto) 7.6 (2-11) % Eos % (Auto) 1.7 (0-4) % Baso % (Auto) 0.5 (0-2) % Lymph # (Auto) 1.6 (1.2-4.9) X10*3/uL [place] # (Auto) 0.5 (0.1-1.2) X10*3/uL Eos # (Auto) 0.1 (0.0-0.4) X10*3/uL Baso # (Auto) 0.0 (0.0-0.2) X10*3/uL Abs Immat Gran (auto) 0.03 (0.00-0.03) X10*3/uL Absolute Neuts (auto) 3.8 (2.0-8.3) x10*3/uL Absolute Nucleated RBC 0.000 (0.0-0.012) X10*3/uL Nucleated RBC % (auto) 0.0 (0.0-0.2) /100WBC PT (10.0-13.1) SEC INR (0.9-1.1) APTT (26.0-36.4) SEC Sodium 140 (135-145) mmol/L Potassium 3.8 (3.3-5.1) mmol/L Chloride 106 (96-108) mmol/L Carbon Dioxide 24 (22-29) mmol/L Anion Gap 14 (12-20) BUN 13 (9-16) mg/dL Creatinine 0.77 (0.5-1.4) mg/dL Estim Creat Clear Calc 141.3 Estimated GFR > 60 POC Glucose 210 H (60-115) mg/dL Random Glucose 226 H (60-115) mg/dL Calcium 9.1 D (8.4-10.2) mg/dL Magnesium 1.7 (1.6-2.6) mg/dL Total Bilirubin 0.7 (0.0-1.0) mg/dL Direct Bilirubin 0.2 (0.0-0.5) mg/dL AST 22 (5-37) U/L ALT 28 (0-40) U/L Alkaline Phosphatase 79 (39-117) U/L Troponin I High Sens (<3.5-35.0) ng/L Total Protein 6.8 (6.5-8.0) g/dL Albumin 4.1 (3.5-5.0) g/dL Urine Color Urine Appearance Urine pH (5.0-9.0) Ur Specific [place] (1.005-1.025) Urine Protein (Neg-Trace) mg/dL Urine Glucose (UA) (Negative) mg/dL Urine Ketones (Negative) mg/dL Urine Blood (Negative) Urine Nitrite (Negative) Ur Leukocyte Esterase (Negative) Urine RBC (0-2) /HPF Urine WBC (0-5) /HPF Ur Squamous Epith Cells (0-2) /HPF Urine Bacteria (None Seen) Hyaline Casts (0-2) /LPF Urine Opiates Screen (Not Detect) Urine Fentanyl Screen (Not Detect) Ur Barbiturates Screen (Not Detect) Ur Phencyclidine Scrn (Not Detect) Ur Amphetamines Screen (Not Detect) U Benzodiazepines Scrn (Not Detect) Urine Cocaine Screen (Not Detect) U Marijuana (THC) Screen (Not Detect) Ethyl Alcohol mg/dL COVID-19 (TRAM) (Negative) COVID-19 Clin Com 03/17/22 03/17/22 03/17/22 Range/Units 17:06 17:06 17:06 WBC (4.8-10.8) X10*3/uL RBC (4.60-5.80) X10*6/uL Hgb (14.0-18.0) g/dl Hct (42.0-52.0) % MCV (80.0-98.0) fL MCH (27.0-33.0) pg MCHC (31.0-36.0) g/dl RDW (11.0-16.0) % Plt Count (160-400) X10*3/uL MPV (9.4-12.4) fL Immature Gran % (Auto) (0.0-0.4) % Neut % (Auto) (45-73) % Lymph % (Auto) (20-40) % [place] % (Auto) (2-11) % Eos % (Auto) (0-4) % Baso % (Auto) (0-2) % Lymph # (Auto) (1.2-4.9) X10*3/uL [place] # (Auto) (0.1-1.2) X10*3/uL Eos # (Auto) (0.0-0.4) X10*3/uL Baso # (Auto) (0.0-0.2) X10*3/uL Abs Immat Gran (auto) (0.00-0.03) X10*3/uL Absolute Neuts (auto) (2.0-8.3) x10*3/uL Absolute Nucleated RBC (0.0-0.012) X10*3/uL Nucleated RBC % (auto) (0.0-0.2) /100WBC PT 13.5 H (10.0-13.1) SEC INR 1.2 H (0.9-1.1) APTT 43.3 H (26.0-36.4) SEC Sodium (135-145) mmol/L Potassium (3.3-5.1) mmol/L Chloride (96-108) mmol/L Carbon Dioxide (22-29) mmol/L Anion Gap (12-20) BUN (9-16) mg/dL Creatinine (0.5-1.4) mg/dL Estim Creat Clear Calc Estimated GFR POC Glucose (60-115) mg/dL Random Glucose (60-115) mg/dL Calcium (8.4-10.2) mg/dL Magnesium (1.6-2.6) mg/dL Total Bilirubin (0.0-1.0) mg/dL Direct Bilirubin (0.0-0.5) mg/dL AST (5-37) U/L ALT (0-40) U/L Alkaline Phosphatase (39-117) U/L Troponin I High Sens < 3.5 (<3.5-35.0) ng/L Total Protein (6.5-8.0) g/dL Albumin (3.5-5.0) g/dL Urine Color Urine Appearance Urine pH (5.0-9.0) Ur Specific [place] (1.005-1.025) Urine Protein (Neg-Trace) mg/dL Urine Glucose (UA) (Negative) mg/dL Urine Ketones (Negative) mg/dL Urine Blood (Negative) Urine Nitrite (Negative) Ur Leukocyte Esterase (Negative) Urine RBC (0-2) /HPF Urine WBC (0-5) /HPF Ur Squamous Epith Cells (0-2) /HPF Urine Bacteria (None Seen) Hyaline Casts (0-2) /LPF Urine Opiates Screen (Not Detect) Urine Fentanyl Screen (Not Detect) Ur Barbiturates Screen (Not Detect) Ur Phencyclidine Scrn (Not Detect) Ur Amphetamines Screen (Not Detect) U Benzodiazepines Scrn (Not Detect) Urine Cocaine Screen (Not Detect) U Marijuana (THC) Screen (Not Detect) Ethyl Alcohol mg/dL COVID-19 (TRAM) Negative (Negative) COVID-19 Clin Com See Note 03/17/22 03/17/22 03/17/22 Range/Units 17:06 18:09 18:09 WBC (4.8-10.8) X10*3/uL RBC (4.60-5.80) X10*6/uL Hgb (14.0-18.0) g/dl Hct (42.0-52.0) % MCV (80.0-98.0) fL MCH (27.0-33.0) pg MCHC (31.0-36.0) g/dl RDW (11.0-16.0) % Plt Count (160-400) X10*3/uL MPV (9.4-12.4) fL Immature Gran % (Auto) (0.0-0.4) % Neut % (Auto) (45-73) % Lymph % (Auto) (20-40) % [place] % (Auto) (2-11) % Eos % (Auto) (0-4) % Baso % (Auto) (0-2) % Lymph # (Auto) (1.2-4.9) X10*3/uL [place] # (Auto) (0.1-1.2) X10*3/uL Eos # (Auto) (0.0-0.4) X10*3/uL Baso # (Auto) (0.0-0.2) X10*3/uL Abs Immat Gran (auto) (0.00-0.03) X10*3/uL Absolute Neuts (auto) (2.0-8.3) x10*3/uL Absolute Nucleated RBC (0.0-0.012) X10*3/uL Nucleated RBC % (auto) (0.0-0.2) /100WBC PT (10.0-13.1) SEC INR (0.9-1.1) APTT (26.0-36.4) SEC Sodium (135-145) mmol/L Potassium (3.3-5.1) mmol/L Chloride (96-108) mmol/L Carbon Dioxide (22-29) mmol/L Anion Gap (12-20) BUN (9-16) mg/dL Creatinine (0.5-1.4) mg/dL Estim Creat Clear Calc Estimated GFR POC Glucose (60-115) mg/dL Random Glucose (60-115) mg/dL Calcium (8.4-10.2) mg/dL Magnesium (1.6-2.6) mg/dL Total Bilirubin (0.0-1.0) mg/dL Direct Bilirubin (0.0-0.5) mg/dL AST (5-37) U/L ALT (0-40) U/L Alkaline Phosphatase (39-117) U/L Troponin I High Sens (<3.5-35.0) ng/L Total Protein (6.5-8.0) g/dL Albumin (3.5-5.0) g/dL Urine Color Yellow Urine Appearance Clear Urine pH 6.0 (5.0-9.0) Ur Specific [place] 1.010 (1.005-1.025) Urine Protein Negative (Neg-Trace) mg/dL Urine Glucose (UA) >=1000 H (Negative) mg/dL Urine Ketones 40 (Negative) mg/dL Urine Blood Negative (Negative) Urine Nitrite Negative (Negative) Ur Leukocyte Esterase Negative (Negative) Urine RBC 0-2 (0-2) /HPF Urine WBC 0-5 (0-5) /HPF Ur Squamous Epith Cells 0-2 (0-2) /HPF Urine Bacteria None Seen (None Seen) Hyaline Casts 0-2 (0-2) /LPF Urine Opiates Screen Not Detected (Not Detect) Urine Fentanyl Screen Not Detected (Not Detect) Ur Barbiturates Screen Not Detected (Not Detect) Ur Phencyclidine Scrn Not Detected (Not Detect) Ur Amphetamines Screen Not Detected (Not Detect) U Benzodiazepines Scrn Not Detected (Not Detect) Urine Cocaine Screen Not Detected (Not Detect) U Marijuana (THC) Screen Not Detected (Not Detect) Ethyl Alcohol < 10 mg/dL COVID-19 (TRAM) (Negative) COVID-19 Clin Com <CHAVA Joseph - Last Filed: 03/17/22 19:40> Critical Care Time Critical Care Time Critical Care Time: No <CHAVA Joseph - Last Filed: 03/17/22 19:40> Discharge Plan Discharge Clinical Impression: Fall, Headache, Abrasion, Closed fracture nasal bone, Fracture of phalanx of digit of hand, Concussion with loss of consciousness <CHAVA Mendes - Last Filed: 03/17/22 16:34> Patient Disposition: Home, Self-Care <CHAVA Mendes - Last Filed: 03/17/22 16:34> Instructions: Nasal Fracture (ED), Finger Fracture (ED), Facial Fracture (ED), Acute Headache (ED), Post Concussion Syndrome (ED), Fall Prevention (ED), General Headache (ED) <CHAVA Mendes - Last Filed: 03/17/22 16:34> Additional Instructions: Take your medications as prescribed. If you were prescribed antibiotics today, it is important that you take your medication to their entirety, do not skip any doses, do not finish them early. Follow-up with your primary care provider this week. Follow up with ortho within a week for your hand. Keep splint on for 24 hours and then replace with new one. Numbness, tingling and severe or worsening pain are concerning if these arise return. Return to the emergency department with new or worsening symptoms. Such as fevers, chills, chest pain, shortness of breath, nausea, vomiting, dizziness, headache, vision changes, lethargy In case of emergency call 911 Take Tylenol as needed for pain. I did offer for you to stay in the hospital for observation however you refused. Please look out for signs and symptoms of post concussive syndrome. Read the handout of any of these arise please return for prompt evaluation. You likely have a concussion. Please limit screen time, rest her brain, do not participate in physical activity until medically cleared by a medical professional in 3-4 weeks. <CHAVA Mendes - Last Filed: 03/17/22 16:34> Prescriptions: No Action (DME) FreeStyle Lite Strips Strip See Rx Instructions Not Applicable QID Qty: 120 6RF Rx Instructions: 4 times a day (DME) lancets 33 gauge misc See Rx Instructions .ROUTE .MEDSUPPLY Qty: 150 5RF Rx Instructions: four times daily lisinopril 5 mg tablet 5 mg PO DAILY 90 Days Qty: 90 4RF Trulicity 4.5 mg/0.5 mL pen injector 4.5 mg subcut QWEEK Qty: 2 6RF sotalol [Sotalol AF] 120 mg tablet 120 mg PO BID Qty: 60 5RF atorvastatin 80 mg tablet 80 mg PO DAILY 90 Days Qty: 90 1RF cholecalciferol (vitamin D3) 50 mcg (2,000 unit) capsule 50 mcg PO QAM Qty: 90 5RF Jardiance 25 mg tablet 25 mg PO QAM Qty: 30 4RF ezetimibe 10 mg tablet 10 mg PO QAM Qty: 30 4RF Humulin R U-500 (Conc) Kwikpen 500 unit/mL (3 mL) insulin pen 80 unit subcut TIDWMEAL Qty: 12 2RF Pradaxa 150 mg capsule 150 mg PO BID cyclobenzaprine 10 mg tablet 10 mg PO TID PRN (Reason: muscle spasm) Qty: 14 0RF lidocaine [Lidoderm] 5 % adhesive patch,medicated 1 patch topical DAILY Qty: 15 0RF Rx Instructions: leave on most painful area for up to 12 hrs divalproex 500 mg tablet extended release 24 hr 0 mg PO omeprazole 40 mg capsule,delayed release(DR/EC) 40 mg PO QAM PRN (Reason: Heartburn) fluticasone propionate 50 mcg/actuation spray,suspension 1 spray intranasal DAILY alcohol swabs Pads, Medicated 0 pad topical melatonin 5 mg tablet 5 mg PO BEDTIME PRN (Reason: Sleep) (DME) pen needle, diabetic 32 gauge x 5/32 needle See Rx Instructions .ROUTE QID Qty: 100 10RF Rx Instructions: Twice a day primidone 50 mg tablet 50 mg PO BID chlorhexidine gluconate 0.12 % mouthwash PO BID (DME) blood-glucose meter [FreeStyle Lite Meter] Kit See Rx Instructions .Route Rx Instructions: As directed (DME) FreeStyle Lite Strips Strip See Rx Instructions .Route Qty: 200 11RF Rx Instructions: As directed test blood sugar 6 times daily <CHAVA Mendes - Last Filed: 03/17/22 16:34> Referrals: Tano Cooley [Physician] - 1 day <CHAVA Mendes - Last Filed: 03/17/22 16:34>
--- NOTE | 2022-03-17 16:33 | ECG_ITS ---
Test Reason : FALL Blood Pressure : / mmHG Vent. Rate : 123 BPM Atrial Rate : 000 BPM P-R Int : 000 ms QRS Dur : 088 ms QT Int : 330 ms P-R-T Axes : 000 -30 067 degrees QTc Int : 472 ms Atrial fibrillation with rapid ventricular response Left axis deviation Nonspecific ST and T wave abnormality Abnormal ECG When compared with ECG of 18-JAN-2021 23:21, No significant change was found Referred By: Belkis Ashley Electronically Signed By:Gee Main
[2022-03-17 16:57] LABS: Glucose, Whole Blood 210 mg/dL (60-115)
[2022-03-17 17:13] LABS: MANUAL DIFF FLAG NO
[2022-03-17 17:15] LABS: Basophils Percent Auto 0.5 % (0-2); Eosinophils Absolute Auto 0.1 X10*3/uL (0.0-0.4); Eosinophils Percent Auto 1.7 % (0-4); Hematocrit 43.1 % (42.0-52.0); Hemoglobin 14.3 g/dl (14.0-18.0); Imm Gran Abs Auto 0.03 X10*3/uL (0.00-0.03); Imm Gran Pct Auto 0.5 % (0.0-0.4); Lymphocytes Absolute Auto 1.6 X10*3/uL (1.2-4.9); Mean Corpuscular HGB Conc 33.2 g/dl (31.0-36.0); Mean Corpuscular Hemoglobin 31.1 pg (27.0-33.0); Mean Corpuscular Volume 93.7 fL (80.0-98.0); Mean Platelet Volume 9.7 fL (9.4-12.4); Monocytes Absolute Auto 0.5 X10*3/uL (0.1-1.2); Monocytes Percent Auto 7.6 % (2-11); Neutrophils Absolute Auto 3.8 x10*3/uL (2.0-8.3); Neutrophils Percent Auto 62.7 % (45-73); Platelet Count 196 X10*3/uL (160-400); Red Cell Distribution Width 13.2 % (11.0-16.0)
[2022-03-17 17:21] LABS: INTERNATIONAL NORM RATIO 1.2 (0.9-1.1); Prothrombin Time 13.5 SEC (10.0-13.1)
[2022-03-17 17:24] LABS: Partial Thromboplastin Time 43.3 SEC (26.0-36.4)
[2022-03-17 17:32] LABS: COVID-19 Test Negative (Negative); IDNOW Serial# 16C4AD1C
[2022-03-17 17:33] LABS: Alanine Aminotransferase 28 U/L (0-40); Albumin Level 4.1 g/dL (3.5-5.0); Alkaline Phosphatase 79 U/L (39-117); Anion Gap 14 (12-20); Aspartate Amino Transferase 22 U/L (5-37); Bilirubin Direct 0.2 mg/dL (0.0-0.5); Bilirubin Total 0.7 mg/dL (0.0-1.0); Blood Urea Nitrogen 13 mg/dL (9-16); Calcium 9.1 mg/dL (8.4-10.2); Carbon Dioxide 24 mmol/L (22-29); Chloride 106 mmol/L (96-108); Creatinine Clr Calc Pharmacy 141.3; Estimated Glomerular Filt Rate > 60; Glucose Random 226 mg/dL (60-115); Magnesium 1.7 mg/dL (1.6-2.6); Potassium 3.8 mmol/L (3.3-5.1); Sodium 140 mmol/L (135-145); Total Protein 6.8 g/dL (6.5-8.0)
[2022-03-17 17:35] LABS: Ethanol < 10 mg/dL
[2022-03-17 17:42] LABS: Troponin-I High Sensitivity < 3.5 ng/L (<3.5-35.0)
[2022-03-17] MEDS: iohexoL 350 MG/ML 100 ML INFUS..BTL IV (18:01)
[2022-03-17 18:15] VITALS: BP 112/79; PULSE 110
[2022-03-17 18:16] VITALS: RESP 16
[2022-03-17] MEDS: Morphine Sulfate 4 MG/ML CARTRIDGE IVPUSH (18:16)
[2022-03-17 18:17] VITALS: BP 109/78; PULSE 120
[2022-03-17 18:18] VITALS: BP 99/70; PULSE 138
[2022-03-17 18:20] LABS: Appearance Urine Clear; Color Urine Yellow; Glucose Urine UA >=1000 mg/dL (Negative); Leukocyte Esterase Urine Negative (Negative); Nitrite Urine Negative (Negative); UMIC TRIGGER UACC YES; Urine Blood Negative (Negative); Urine Ketones 40 mg/dL (Negative); Urine Protein Negative (Neg-Trace)
[2022-03-17 18:22] LABS: Bacteria Urine None Seen (None Seen); Hyaline Casts Urine 0-2 /LPF (0-2); RBC Urine 0-2 /HPF (0-2); Squamous Epithelial Cell Urine 0-2 /HPF (0-2); WBC Urine 0-5 /HPF (0-5)
[2022-03-17 18:32] LABS: Amphetamine Screen Urine Not Detected (Not Detect); Barbiturates, Urine Not Detected (Not Detect); Benzodiazepines Screen Urine Not Detected (Not Detect); Cannabinoid Screen Urine Not Detected (Not Detect); Cocaine Screen Urine Not Detected (Not Detect); Fentanyl, urine Not Detected (Not Detect); Opiate Screen Urine Not Detected (Not Detect); Phencyclidine Screen Urine Not Detected (Not Detect)
--- NOTE | 2022-03-17 20:12 | PC.NURSE ---
Splint applied to the fifth digit of right hand. IV removed. Pt tolerated well. Discharge instructions reviewed with pt. Pt verbalizes understanding.
== END 2022-03-17 20:13 | disposition home or self-care (01) ==
PROVIDERS: Physician Assistant; Emergency Provider Internal Medicine; PCP Family Medicine
DX: S02.2XXA Fracture of nasal bones, initial encounter for closed fracture (principal); S62.609A Fracture of unspecified phalanx of unspecified finger, initial encounter for closed fracture; S00.81XA Abrasion of other part of head, initial encounter; R42 Dizziness and giddiness; I48.91 Unspecified atrial fibrillation; R51.9 Headache, unspecified; M54.2 Cervicalgia; R10.9 Unspecified abdominal pain; M54.50 Low back pain, unspecified; W01.0XXA Fall on same level from slipping, tripping and stumbling without subsequent striking against object, initial encounter; Y93.9 Activity, unspecified; Y92.480 Sidewalk as the place of occurrence of the external cause; Y99.9 Unspecified external cause status; Z20.822 Contact with and (suspected) exposure to COVID-19; Z20.828 Contact with and (suspected) exposure to other viral communicable diseases; Z79.01 Long term (current) use of anticoagulants; Z79.899 Other long term (current) drug therapy
CPT/HCPCS: 36415; 70450; 70486; 71260; 72125; 73130; 74177; 80048; 80076; 80307; 81001; 82077; 82947; 83735; 84484; 85025; 85610; 85730; 87635; 93005; 96374; 99284; 99285; J2270; Q9967

== ENCOUNTER 2022-04-06 09:04 | Outpatient (REF) | payer OTHER, SELFPAY ==
[2022-04-06 11:05] LABS: Cholesterol 113 mg/dL; HDL Cholesterol 24 mg/dL; LDL Cholesterol Calculated 76 mg/dl; Triglycerides 68 mg/dL
[2022-04-06 11:14] LABS: Creatinine Urine 64.08 mg/dL; Microalbumin Urine < 5.0 mg/L
== END 2022-04-06 09:05 | disposition home or self-care (01) ==
LOC: HO.LAB 09:04
PROVIDERS: PCP Family Medicine; Visit Provider Internal Medicine Endocrinology, Diabetes & Metabolism
DX: E11.8 Type 2 diabetes mellitus with unspecified complications (principal)
CPT/HCPCS: 36415; 80061; 82043

== ENCOUNTER → 2022-04-08 11:22 | Outpatient (BNVA) | payer OTHER, SELFPAY | PROVIDERS: PCP Family Medicine; Visit Provider Internal Medicine Endocrinology, Diabetes & Metabolism | DX: E11.65 Type 2 diabetes mellitus with hyperglycemia (principal); Z79.4 Long term (current) use of insulin | CPT/HCPCS: 82947; 83036; 99212 ==

== ENCOUNTER 2022-04-23 07:09 | Outpatient (REF) | payer OTHER, SELFPAY ==
--- NOTE | ~2022-04-23 | XR_ITS ---
EXAMINATION: XR HAND, RIGHT CLINICAL INFORMATION: Right hand pain COMPARISON: 03/17/2022 TECHNIQUE: PA, lateral, and oblique views of the right hand. FINDINGS: Redemonstration of transverse oriented fracture of the base of the fifth proximal phalanx without extension into the joint space. XR/XR hand RT min 3V IMPRESSION: Redemonstration of transverse oriented fracture of the base of the fifth proximal phalanx without extension into the joint space.
== END 2022-04-23 07:10 | disposition home or self-care (01) ==
LOC: HO.HOSX 07:09
PROVIDERS: Visit Provider Physician Assistant
DX: S62.640D Nondisplaced fracture of proximal phalanx of right index finger, subsequent encounter for fracture with routine healing (principal)
CPT/HCPCS: 73130

== ENCOUNTER → 2022-05-03 13:27 | Outpatient (BNVA) | payer OTHER, SELFPAY | PROVIDERS: PCP Family Medicine; Referring Provider Family Medicine; Visit Provider Internal Medicine | DX: I48.19 Other persistent atrial fibrillation (principal); I42.8 Other cardiomyopathies; I48.3 Typical atrial flutter; R07.2 Precordial pain; G47.33 Obstructive sleep apnea (adult) (pediatric); E66.01 Morbid (severe) obesity due to excess calories; E11.65 Type 2 diabetes mellitus with hyperglycemia; E11.21 Type 2 diabetes mellitus with diabetic nephropathy; Z68.36 Body mass index [BMI] 36.0-36.9, adult; Z79.01 Long term (current) use of anticoagulants; Z79.4 Long term (current) use of insulin; Z79.899 Other long term (current) drug therapy | CPT/HCPCS: 93005; 99212 ==

== ENCOUNTER 2022-05-12 18:15 | Emergency (ER) | payer OTHER, SELFPAY ==
--- NOTE | ~2022-05-12 | XR_ITS ---
EXAMINATION: XR CHEST CLINICAL INFORMATION: SOB COMPARISON: Negative CT chest 03/17/2022. TECHNIQUE: Frontal view of the chest was obtained. FINDINGS: No significant abnormality is noted involving the heart, lungs, mediastinum, bony thorax or soft tissues. XR/XR chest 1V IMPRESSION: Unremarkable chest examination.
--- NOTE | 2022-05-12 18:18 | ECG_ITS ---
Test Reason : CHEST PAIN Blood Pressure : / mmHG Vent. Rate : 119 BPM Atrial Rate : 000 BPM P-R Int : 000 ms QRS Dur : 084 ms QT Int : 326 ms P-R-T Axes : 000 -11 078 degrees QTc Int : 458 ms Atrial fibrillation with rapid ventricular response Nonspecific ST and T wave abnormality Abnormal ECG When compared with ECG of 17-MAR-2022 16:46, No significant change was found Referred By: Generic ED Physician Electronically Signed By:LILLY SCHNEIDER
--- NOTE | 2022-05-12 18:33 | ED_ITS ---
HPI - Chest Pain General Chief Complaint: Chest Pain <CHAVA Mendes Last Filed: 05/12/22 18:38> Stated Complaint: chest pain, left side pain <CHAVA Mendes - Last Filed: 05/12/22 18:38> Time Seen by Provider: 05/12/22 18:44 <CHAVA Mendes - Last Filed: 05/12/22 18:38> Source: patient <Shaquille DO Jose - Last Filed: 05/12/22 19:19> Mode of arrival: ambulatory <Shaquille Garcia DO - Last Filed: 05/12/22 19:19> Limitations: no limitations <Shaquille Garcia DO - Last Filed: 05/12/22 19:19> History of Present Illness HPI narrative: 48-year-old male with bipolar disorder on multiple medications also atrial fibrillation presents to the emergency department complaining of elevated heart rate. Patient's is followed by Dr. Ryland davidson. He states that he was recently taken off of sotalol and switch to another medication. He started digoxin as well as metoprolol. <Shaquille Garcia DO - Last Filed: 05/12/22 19:19> MD complaint: other <Shaquille Garcia DO - Last Filed: 05/12/22 19:19> Related Data Home Medications: Home Medications Medication Instructions Recorded Confirmed fluticasone propionate 50 1 spray intranasal DAILY 01/03/20 05/03/22 mcg/actuation nasal spray,suspension omeprazole 40 mg capsule,delayed 40 mg PO QAM PRN Heartburn 01/03/20 05/03/22 release melatonin 5 mg tablet 5 mg PO BEDTIME PRN Sleep 11/18/20 05/03/22 chlorhexidine gluconate 0.12 % ml PO BID 01/20/21 05/03/22 mouthwash primidone 50 mg tablet 50 mg PO BID 01/20/21 05/03/22 dabigatran etexilate 150 mg 150 mg PO BID 11/03/21 05/03/22 capsule (Pradaxa) blood-glucose meter (FreeStyle 01/06/22 05/03/22 Lite Meter kit) baclofen 10 mg tablet 10 mg PO DAILY 04/08/22 05/03/22 blood-glucose meter,continuous 04/08/22 05/03/22 (Dexcom G6 Scientific Programmer Analyst) blood-glucose sensor (Dexcom G6 04/08/22 05/03/22 Sensor device) blood-glucose transmitter (Dexcom 04/08/22 05/03/22 G6 Transmitter device) clobetasol 0.05 % topical ointment 1 appl topical BID 04/08/22 05/03/22 divalproex 500 mg tablet,delayed 500 mg PO TID 04/08/22 05/03/22 release pen needle, diabetic 32 gauge x 04/08/22 05/03/2232 tramadol 50 mg tablet 50 mg PO Q6H PRN 04/08/22 05/03/22 Previous Rx's Medication Instructions Recorded FreeStyle Lite Strips (blood sugar #120 ea 09/25/20 diagnostic) lisinopril 5 mg tablet 5 mg PO DAILY 90 days #90 tabs 09/25/21 cyclobenzaprine 10 mg tablet 10 mg PO TID PRN muscle spasm #14 10/28/21 tabs lidocaine 5 % topical patch 1 patch topical DAILY #15 ea 10/28/21 (Lidoderm) blood sugar diagnostic (FreeStyle #200 ea 01/06/22 Lite Strips) atorvastatin 80 mg tablet 80 mg PO DAILY 90 days #90 tabs 01/18/22 cholecalciferol (vitamin D3) 50 50 mcg PO QAM #90 ea 02/25/22 mcg (2,000 unit) capsule empagliflozin 25 mg tablet 25 mg PO QAM #30 tabs 03/10/22 (Jardiance) ezetimibe 10 mg tablet 10 mg PO QAM #30 tabs 03/10/22 insulin regular hum U-500 conc 500 80 unit (0.16 mL) subcut TIDWMEAL 03/16/22 unit/mL(3 mL) subcut pen (Humulin #12 mL R U-500 (Conc) Insulin Kwikpen) dulaglutide 4.5 mg/0.5 mL See Rx Instructions .Route 04/20/22 subcutaneous pen injector .COMPLEX #2 mL (Trulicity) digoxin 125 mcg (0.125 mg) tablet 125 mcg PO DAILY #90 tabs 05/03/22 (Digox) metoprolol tartrate 50 mg tablet 50 mg PO BID #90 tabs 05/03/22 lancets 33 gauge #150 ea 05/05/22 <CHAVA Mendes - Last Filed: 05/12/22 18:38> Allergies/Adverse Reactions: Allergies Allergy/AdvReac Type Severity Reaction Status Date / Time Penicillins [PENICILLINS] Allergy Unknown UNKNOWN Verified 05/12/22 18:36 metformin AdvReac Unknown diarrhea Verified 05/12/22 18:36 <CHAVA Mednes - Last Filed: 05/12/22 18:38> [facility] Past Medical History Medical History: Medical History Diabetes type 2, uncontrolled Diabetic nephropathy associated with type 2 diabetes mellitus Dyslipidemia Essential hypertension Hyperparathyroidism Hypertension alf (current) use of insulin Morbid obesity Nonischemic cardiomyopathy Obesity CLAUDIA (obstructive sleep apnea) Paroxysmal A-fib Type 2 diabetes mellitus with unspecified complications Typical atrial flutter Vitamin D deficiency <CHAVA Mendes - Last Filed: 05/12/22 18:38> Surgical History: Surgical History History of radiofrequency ablation procedure for cardiac arrhythmia Hx of colonoscopy <CHAVA Mendes - Last Filed: 05/12/22 18:38> Family History Family History: Family History Father Cancer Diabetes CVD (cardiovascular disease) Mother Diabetes <CHAVA Mendes - Last Filed: 05/12/22 18:38> Social History Social History: Social History Household Members: None Household Members Other:: Alcohol intake: never Patient Tobacco Use Status: Former Tobacco user Substance Use Type: Crack/Cocaine and Marijuana Advance Directives: No Advance Directives Information Provided: No Current occupational status: disabled Current occupation: left handed <CHAVA Mendes - Last Filed: 05/12/22 18:38> Physical Exam Vital Signs: Vital Signs: Last Vital Signs Temp 97.7 F 05/12/22 18:34 Pulse 122 H 05/12/22 18:34 Resp 22 H 05/12/22 18:34 BP 121/72 05/12/22 18:34 Pulse Ox 97 05/12/22 18:34 O2 Del Method 05/12/22 18:34 BMI result Body Mass Index 36.6 <CHAVA Mendes - Last Filed: 05/12/22 18:38> Vital Signs: Last Vital Signs Temp 97.7 F 05/12/22 18:34 Pulse 122 H 05/12/22 18:34 Resp 22 H 05/12/22 18:34 BP 121/72 05/12/22 18:34 Pulse Ox 97 05/12/22 18:34 O2 Del Method 05/12/22 18:34 BMI result Body Mass Index 36.6 <Shaquille Garcia DO - Last Filed: 05/12/22 19:19> Course Course Course Narrative: RME - 56 yo male with history of afib/aflutter on Pradaxa, follows w/ Dr. Marcelino, HTN, HLD, DM2 on insulin, CLAUDIA, nonischemic cardiomyopathy who presents to the ER for evaluation of 7/10 left sided chest pain and pressure ra diating up into the neck along with tachycardia at home HR 140s on his smart watch. He was recently weaned off of sotalol and started on metoprolol and digoxin instead. Plan: EKG, labs, CXR, to go to main ER. EKG with rapid afib, HR 120s in triage. . <CHAVA Mendes - Last Filed: 05/12/22 18:38> Medications Administered Generic Name Dose Route Start Last Admin Trade Name Freq PRN Reason Stop Dose Admin Sodium Chloride 1,000 mls @ 999 mls/hr 05/12/22 19:00 05/12/22 19:09 Ns IV 05/12/22 20:00 999 mls/hr .Q1H1M [place] Administration Discontinued Medications Generic Name Dose Route Start Last Admin Trade Name Freq PRN Reason Stop Dose Admin Diltiazem HCl 30.6175 mg 05/12/22 18:48 05/12/22 19:10 Diltiazem Hcl 50 Mg/10 Ml Vial 0.25 mg/kg (30.6175 mg) 05/12/22 18:49 30.6175 mg IVPUSH Administration ONCE ONE Diltiazem HCl 60 mg 05/12/22 18:48 05/12/22 19:14 Diltiazem Hcl 60 Mg Tablet PO 05/12/22 18:49 60 mg ONCE ONE Administration Protocol <CHAVA Mendes - Last Filed: 05/12/22 18:38> Medications Administered Generic Name Dose Route Start Last Admin Trade Name Freq PRN Reason Stop Dose Admin Sodium Chloride 1,000 mls @ 999 mls/hr 05/12/22 19:00 05/12/22 19:09 Ns IV 05/12/22 20:00 999 mls/hr .Q1H1M [place] Administration Discontinued Medications Generic Name Dose Route Start Last Admin Trade Name Freq PRN Reason Stop Dose Admin Diltiazem HCl 30.6175 mg 05/12/22 18:48 05/12/22 19:10 Diltiazem Hcl 50 Mg/10 Ml Vial 0.25 mg/kg (30.6175 mg) 05/12/22 18:49 30.6175 mg IVPUSH Administration ONCE ONE Diltiazem HCl 60 mg 05/12/22 18:48 05/12/22 19:14 Diltiazem Hcl 60 Mg Tablet PO 05/12/22 18:49 60 mg ONCE ONE Administration Protocol <Shaquille Garcia DO - Last Filed: 05/12/22 19:19> Medical Decision Making Medical Decision Making MDM Narrative: Patient given diltiazem orally and IV heart rate is improved blood pressure is holding patient feels much better patient had unremarkable workup I think this is just going to take some time for the medications switched to take effect I do feel comfortable with patient going home and following with his doctor. <Shaquille Garcia DO - Last Filed: 05/12/22 19:19> Differential Diagnosis Differential Diagnoses: The differential diagnosis associated with the presentation includes <Shaquille Garcia DO - Last Filed: 05/12/22 19:19> Concern for AFib with RVR does chronic AFib he is ready anticoagulated I will talk to help rate control I will watch the patient here give diltiazem orally and IV and see if I can control the patient I will give troponin as well. <Shaquille Garcia DO - Last Filed: 05/12/22 19:19> Lab Data Result Diagrams: 05/12/22 18:40 05/12/22 18:40 <CHAVA Mendes - Last Filed: 05/12/22 18:38> Labs: Lab Results 03/08/23 03/08/23 03/08/23 Range/Units 18:40 18:40 18:40 WBC 5.8 (4.8-10.8) X10*3/uL RBC 4.81 (4.60-5.80) X10*6/uL Hgb 15.0 (14.0-18.0) g/dl Hct 44.4 (42.0-52.0) % MCV 92.3 (80.0-98.0) fL MCH 31.2 (27.0-33.0) pg MCHC 33.8 (31.0-36.0) g/dl RDW 13.2 (11.0-16.0) % Plt Count 200 (160-400) X10*3/uL MPV 9.7 (9.4-12.4) fL Immature Gran % (Auto) 0.2 (0.0-0.4) % Neut % (Auto) 55.5 (45-73) % Lymph % (Auto) 34.6 (20-40) % [place] % (Auto) 7.5 (2-11) % Eos % (Auto) 1.7 (0-4) % Baso % (Auto) 0.5 (0-2) % Lymph # (Auto) 2.0 (1.2-4.9) X10*3/uL [place] # (Auto) 0.4 (0.1-1.2) X10*3/uL Eos # (Auto) 0.1 (0.0-0.4) X10*3/uL Baso # (Auto) 0.0 (0.0-0.2) X10*3/uL Abs Immat Gran (auto) 0.01 (0.00-0.03) X10*3/uL Absolute Neuts (auto) 3.2 (2.0-8.3) x10*3/uL Absolute Nucleated RBC 0.000 (0.0-0.012) X10*3/uL Nucleated RBC % (auto) 0.0 (0.0-0.2) /100WBC PT 12.6 (10.0-13.1) SEC INR 1.1 (0.9-1.1) APTT 46.7 H (26.0-36.4) SEC Sodium 141 (135-145) mmol/L Potassium 4.2 (3.3-5.1) mmol/L Chloride 106 (96-108) mmol/L Carbon Dioxide 27 (22-29) mmol/L Anion Gap 12 (12-20) BUN 12 (9-16) mg/dL Creatinine 0.91 (0.5-1.4) mg/dL Estim Creat Clear Calc 119.5 Estimated GFR > 60 Random Glucose 185 H (60-115) mg/dL Calcium 9.4 (8.4-10.2) mg/dL Magnesium 1.9 (1.6-2.6) mg/dL Total Bilirubin 0.5 (0.0-1.0) mg/dL Direct Bilirubin < 0.2 (0.0-0.5) mg/dL AST 22 (5-37) U/L ALT 32 (0-40) U/L Alkaline Phosphatase 99 (39-117) U/L Total Protein 7.1 (6.5-8.0) g/dL Albumin 4.2 (3.5-5.0) g/dL COVID-19 (TRAM) (Negative) COVID-19 Clin Com 05/12/22 Range/Units 18:40 WBC (4.8-10.8) X10*3/uL RBC (4.60-5.80) X10*6/uL Hgb (14.0-18.0) g/dl Hct (42.0-52.0) % MCV (80.0-98.0) fL MCH (27.0-33.0) pg MCHC (31.0-36.0) g/dl RDW (11.0-16.0) % Plt Count (160-400) X10*3/uL MPV (9.4-12.4) fL Immature Gran % (Auto) (0.0-0.4) % Neut % (Auto) (45-73) % Lymph % (Auto) (20-40) % [place] % (Auto) (2-11) % Eos % (Auto) (0-4) % Baso % (Auto) (0-2) % Lymph # (Auto) (1.2-4.9) X10*3/uL [place] # (Auto) (0.1-1.2) X10*3/uL Eos # (Auto) (0.0-0.4) X10*3/uL Baso # (Auto) (0.0-0.2) X10*3/uL Abs Immat Gran (auto) (0.00-0.03) X10*3/uL Absolute Neuts (auto) (2.0-8.3) x10*3/uL Absolute Nucleated RBC (0.0-0.012) X10*3/uL Nucleated RBC % (auto) (0.0-0.2) /100WBC PT (10.0-13.1) SEC INR (0.9-1.1) APTT (26.0-36.4) SEC Sodium (135-145) mmol/L Potassium (3.3-5.1) mmol/L Chloride (96-108) mmol/L Carbon Dioxide (22-29) mmol/L Anion Gap (12-20) BUN (9-16) mg/dL Creatinine (0.5-1.4) mg/dL Estim Creat Clear Calc Estimated GFR Random Glucose (60-115) mg/dL Calcium (8.4-10.2) mg/dL Magnesium (1.6-2.6) mg/dL Total Bilirubin (0.0-1.0) mg/dL Direct Bilirubin (0.0-0.5) mg/dL AST (5-37) U/L ALT (0-40) U/L Alkaline Phosphatase (39-117) U/L Total Protein (6.5-8.0) g/dL Albumin (3.5-5.0) g/dL COVID-19 (TRAM) Negative (Negative) COVID-19 Clin Com See Note <CHAVA Mendes - Last Filed: 05/12/22 18:38> Lab Results 05/12/22 05/12/22 05/12/22 Range/Units 18:40 18:40 18:40 WBC 5.8 (4.8-10.8) X10*3/uL RBC 4.81 (4.60-5.80) X10*6/uL Hgb 15.0 (14.0-18.0) g/dl Hct 44.4 (42.0-52.0) % MCV 92.3 (80.0-98.0) fL MCH 31.2 (27.0-33.0) pg MCHC 33.8 (31.0-36.0) g/dl RDW 13.2 (11.0-16.0) % Plt Count 200 (160-400) X10*3/uL MPV 9.7 (9.4-12.4) fL Immature Gran % (Auto) 0.2 (0.0-0.4) % Neut % (Auto) 55.5 (45-73) % Lymph % (Auto) 34.6 (20-40) % [place] % (Auto) 7.5 (2-11) % Eos % (Auto) 1.7 (0-4) % Baso % (Auto) 0.5 (0-2) % Lymph # (Auto) 2.0 (1.2-4.9) X10*3/uL [place] # (Auto) 0.4 (0.1-1.2) X10*3/uL Eos # (Auto) 0.1 (0.0-0.4) X10*3/uL Baso # (Auto) 0.0 (0.0-0.2) X10*3/uL Abs Immat Gran (auto) 0.01 (0.00-0.03) X10*3/uL Absolute Neuts (auto) 3.2 (2.0-8.3) x10*3/uL Absolute Nucleated RBC 0.000 (0.0-0.012) X10*3/uL Nucleated RBC % (auto) 0.0 (0.0-0.2) /100WBC PT 12.6 (10.0-13.1) SEC INR 1.1 (0.9-1.1) APTT 46.7 H (26.0-36.4) SEC Sodium 141 (135-145) mmol/L Potassium 4.2 (3.3-5.1) mmol/L Chloride 106 (96-108) mmol/L Carbon Dioxide 27 (22-29) mmol/L Anion Gap 12 (12-20) BUN 12 (9-16) mg/dL Creatinine 0.91 (0.5-1.4) mg/dL Estim Creat Clear Calc 119.5 Estimated GFR > 60 Random Glucose 185 H (60-115) mg/dL Calcium 9.4 (8.4-10.2) mg/dL Magnesium 1.9 (1.6-2.6) mg/dL Total Bilirubin 0.5 (0.0-1.0) mg/dL Direct Bilirubin < 0.2 (0.0-0.5) mg/dL AST 22 (5-37) U/L ALT 32 (0-40) U/L Alkaline Phosphatase 99 (39-117) U/L Total Protein 7.1 (6.5-8.0) g/dL Albumin 4.2 (3.5-5.0) g/dL COVID-19 (TRAM) (Negative) COVID-19 Clin Com 05/12/22 Range/Units 18:40 WBC (4.8-10.8) X10*3/uL RBC (4.60-5.80) X10*6/uL Hgb (14.0-18.0) g/dl Hct (42.0-52.0) % MCV (80.0-98.0) fL MCH (27.0-33.0) pg MCHC (31.0-36.0) g/dl RDW (11.0-16.0) % Plt Count (160-400) X10*3/uL MPV (9.4-12.4) fL Immature Gran % (Auto) (0.0-0.4) % Neut % (Auto) (45-73) % Lymph % (Auto) (20-40) % [place] % (Auto) (2-11) % Eos % (Auto) (0-4) % Baso % (Auto) (0-2) % Lymph # (Auto) (1.2-4.9) X10*3/uL [place] # (Auto) (0.1-1.2) X10*3/uL Eos # (Auto) (0.0-0.4) X10*3/uL Baso # (Auto) (0.0-0.2) X10*3/uL Abs Immat Gran (auto) (0.00-0.03) X10*3/uL Absolute Neuts (auto) (2.0-8.3) x10*3/uL Absolute Nucleated RBC (0.0-0.012) X10*3/uL Nucleated RBC % (auto) (0.0-0.2) /100WBC PT (10.0-13.1) SEC INR (0.9-1.1) APTT (26.0-36.4) SEC Sodium (135-145) mmol/L Potassium (3.3-5.1) mmol/L Chloride (96-108) mmol/L Carbon Dioxide (22-29) mmol/L Anion Gap (12-20) BUN (9-16) mg/dL Creatinine (0.5-1.4) mg/dL Estim Creat Clear Calc Estimated GFR Random Glucose (60-115) mg/dL Calcium (8.4-10.2) mg/dL Magnesium (1.6-2.6) mg/dL Total Bilirubin (0.0-1.0) mg/dL Direct Bilirubin (0.0-0.5) mg/dL AST (5-37) U/L ALT (0-40) U/L Alkaline Phosphatase (39-117) U/L Total Protein (6.5-8.0) g/dL Albumin (3.5-5.0) g/dL COVID-19 (TRAM) Negative (Negative) COVID-19 Clin Com See Note <Shaquille Garcia DO - Last Filed: 05/12/22 19:19> Discharge Plan Discharge Clinical Impression: Atrial fibrillation with rapid ventricular response <CHAVA Mendes - Last Filed: 05/12/22 18:38> Patient Disposition: Home, Self-Care <CHAVA Mendes - Last Filed: 05/12/22 18:38> Instructions: A-fib (Atrial Fibrillation) (ED) <CHAVA Mendes - Last Filed: 05/12/22 18:38> Additional Instructions: You were seen today for atrial fibrillation. You need to continue with your prescribed medications. You had XR and labs whic were all normal If you have any other concerns please return to the ED. <CHAVA Mendes - Last Filed: 05/12/22 18:38> Prescriptions: No Action (DME) FreeStyle Lite Strips Strip See Rx Instructions Not Applicable QID Qty: 120 6RF Rx Instructions: 4 times a day lisinopril 5 mg tablet 5 mg PO DAILY 90 Days Qty: 90 4RF atorvastatin 80 mg tablet 80 mg PO DAILY 90 Days Qty: 90 1RF cholecalciferol (vitamin D3) 50 mcg (2,000 unit) capsule 50 mcg PO QAM Qty: 90 5RF Jardiance 25 mg tablet 25 mg PO QAM Qty: 30 4RF ezetimibe 10 mg tablet 10 mg PO QAM Qty: 30 4RF Humulin R U-500 (Conc) Kwikpen 500 unit/mL (3 mL) insulin pen 80 unit subcut TIDWMEAL Qty: 12 2RF Trulicity 4.5 mg/0.5 mL pen injector See Rx Instructions .ROUTE .COMPLEX Qty: 2 4RF Dose Instruction: INJECT ONE PEN (= 4.5 MG) SUBCUTANEOUSLY ONCE A WEEK DIRECTED Rx Instructions: INJECT ONE PEN (= 4.5 MG) SUBCUTANEOUSLY ONCE A WEEK DIRECTED (DME) lancets 33 gauge misc See Rx Instructions .ROUTE .MEDSUPPLY Qty: 150 5RF Rx Instructions: four times daily Pradaxa 150 mg capsule 150 mg PO BID cyclobenzaprine 10 mg tablet 10 mg PO TID PRN (Reason: muscle spasm) Qty: 14 0RF lidocaine [Lidoderm] 5 % adhesive patch,medicated 1 patch topical DAILY Qty: 15 0RF Rx Instructions: leave on most painful area for up to 12 hrs omeprazole 40 mg capsule,delayed release(DR/EC) 40 mg PO QAM PRN (Reason: Heartburn) fluticasone propionate 50 mcg/actuation spray,suspension 1 spray intranasal DAILY alcohol swabs Pads, Medicated 0 pad topical melatonin 5 mg tablet 5 mg PO BEDTIME PRN (Reason: Sleep) primidone 50 mg tablet 50 mg PO BID chlorhexidine gluconate 0.12 % mouthwash PO BID (DME) blood-glucose meter [FreeStyle Lite Meter] Kit See Rx Instructions .Route Rx Instructions: As directed (DME) FreeStyle Lite Strips Strip See Rx Instructions .Route Qty: 200 11RF Rx Instructions: As directed test blood sugar 6 times daily metoprolol tartrate 50 mg tablet 50 mg PO BID Qty: 90 1RF digoxin [Digox] 125 mcg (0.125 mg) tablet 125 mcg PO DAILY Qty: 90 1RF (DME) Dexcom G6 Sensor Device See Rx Instructions .Route Rx Instructions: As directed 1 every 10 days (DME) Dexcom G6 Transmitter Device See Rx Instructions .Route Rx Instructions: As directed 1 every 3 months (DME) Dexcom G6 Scientific Programmer Analyst Misc See Rx Instructions .Route Rx Instructions: As directed (DME) pen needle, diabetic 32 gauge x 5/32 needle See Rx Instructions .ROUTE QID Rx Instructions: TID divalproex 500 mg tablet,delayed release (DR/EC) 500 mg PO TID clobetasol 0.05 % ointment 1 appl topical BID baclofen 10 mg tablet 10 mg PO DAILY tramadol 50 mg tablet 50 mg PO Q6H PRN <CHAVA Mendes - Last Filed: 05/12/22 18:38>
[2022-05-12 18:34] VITALS: BP 121/72; PULSE 122; RESP 22; TEMP 36.5; O2SAT 97; BMI 36.6
[2022-05-12 18:45] LABS: MANUAL DIFF FLAG NO
[2022-05-12 18:49] LABS: Basophils Percent Auto 0.5 % (0-2); Eosinophils Absolute Auto 0.1 X10*3/uL (0.0-0.4); Eosinophils Percent Auto 1.7 % (0-4); Hematocrit 44.4 % (42.0-52.0); Imm Gran Abs Auto 0.01 X10*3/uL (0.00-0.03); Imm Gran Pct Auto 0.2 % (0.0-0.4); Lymphocytes Percent Auto 34.6 % (20-40); Mean Corpuscular HGB Conc 33.8 g/dl (31.0-36.0); Mean Corpuscular Hemoglobin 31.2 pg (27.0-33.0); Mean Corpuscular Volume 92.3 fL (80.0-98.0); Mean Platelet Volume 9.7 fL (9.4-12.4); Monocytes Absolute Auto 0.4 X10*3/uL (0.1-1.2); Monocytes Percent Auto 7.5 % (2-11); Neutrophils Absolute Auto 3.2 x10*3/uL (2.0-8.3); Neutrophils Percent Auto 55.5 % (45-73); Platelet Count 200 X10*3/uL (160-400); Red Blood Count 4.81 X10*6/uL (4.60-5.80); Red Cell Distribution Width 13.2 % (11.0-16.0); White Blood Count 5.8 X10*3/uL (4.8-10.8)
[2022-05-12 19:00] LABS: INTERNATIONAL NORM RATIO 1.1 (0.9-1.1); Prothrombin Time 12.6 SEC (10.0-13.1)
[2022-05-12 19:02] LABS: Partial Thromboplastin Time 46.7 SEC (26.0-36.4)
[2022-05-12 19:09] LABS: COVID-19 Test Negative (Negative); IDNOW Serial# 16C4AD1C
[2022-05-12] MEDS: 0.9 % Sodium Chloride 1,000 ML 999 ML IV (19:09)
[2022-05-12] MEDS: dilTIAZem HCL 50 MG/10 ML VIAL 30.6175 MG IVPUSH (19:10)
[2022-05-12 19:14] LABS: Alanine Aminotransferase 32 U/L (0-40); Albumin Level 4.2 g/dL (3.5-5.0); Alkaline Phosphatase 99 U/L (39-117); Anion Gap 12 (12-20); Aspartate Amino Transferase 22 U/L (5-37); Bilirubin Direct < 0.2 mg/dL (0.0-0.5); Bilirubin Total 0.5 mg/dL (0.0-1.0); Blood Urea Nitrogen 12 mg/dL (9-16); Calcium 9.4 mg/dL (8.4-10.2); Carbon Dioxide 27 mmol/L (22-29); Chloride 106 mmol/L (96-108); Creatinine Clr Calc Pharmacy 119.5; Estimated Glomerular Filt Rate > 60; Glucose Random 185 mg/dL (60-115); Magnesium 1.9 mg/dL (1.6-2.6); Potassium 4.2 mmol/L (3.3-5.1); Sodium 141 mmol/L (135-145); Total Protein 7.1 g/dL (6.5-8.0)
[2022-05-12] MEDS: dilTIAZem HCL 60 MG TABLET PO (19:14)
[2022-05-12 19:15] VITALS: BP 94/59; PULSE 78; PULSE 82; RESP 12; O2SAT 96
[2022-05-12 19:17] LABS: Digoxin < 0.2 ng/mL (0.8-2.0)
[2022-05-12 19:18] LABS: B Type Natriuretic Peptide 55 pg/mL (<100)
--- NOTE | 2022-05-12 19:20 | PC.NURSE ---
pt a&ox3, rapid afib on monitor, rate of 110-125, other vss, 20G IV placed right wrist, medicated per provider order, 1L NS running. no new orders at this time.
[2022-05-12 19:30] LABS: Troponin-I High Sensitivity < 3.5 ng/L (<3.5-35.0)
== END 2022-05-12 19:52 | disposition home or self-care (01) ==
PROVIDERS: Physician Assistant; Emergency Provider Student in an Organized Health Care Education/Training Program; PCP Family Medicine
DX: I48.20 Chronic atrial fibrillation, unspecified (principal); Z20.822 Contact with and (suspected) exposure to COVID-19; E11.9 Type 2 diabetes mellitus without complications; I10 Essential (primary) hypertension; E78.5 Hyperlipidemia, unspecified; I48.0 Paroxysmal atrial fibrillation; E66.9 Obesity, unspecified; Z68.36 Body mass index [BMI] 36.0-36.9, adult; Z87.891 Personal history of nicotine dependence; Z79.4 Long term (current) use of insulin; Z79.01 Long term (current) use of anticoagulants
CPT/HCPCS: 71045; 80048; 80076; 80162; 83735; 83880; 84484; 85025; 85610; 85730; 87635; 93005; 96374; 99283; 99284; 99285

== ENCOUNTER 2022-05-15 14:43 | Emergency (ER) | payer OTHER, SELFPAY ==
--- NOTE | ~2022-05-15 | CT_ITS ---
EXAMINATION: CT ANGIOGRAM OF THE CHEST WITH AND WITHOUT CONTRAST (CT PULMONARY ANGIOGRAM FOR PE) CLINICAL INFORMATION: Reason for Exam pain COMPARISON: None TECHNIQUE: Prior to contrast administration, noncontrast localization images were obtained. Subsequently, multidetector volumetric imaging was performed from the thoracic inlet to below the diaphragms following the administration of 80 mL Omnipaque 350 intravenous contrast. No contrast reaction reported Sagittal, coronal, and MIP oblique sagittal reformatted images were obtained on the CT workstation, uploaded to PACS, and reviewed. This CT examination was performed using dose optimization techniques as appropriate, variously including the following: *Automated exposure control *Adjustment of mA and/or kV according to patient size (this includes techniques or standardized protocols for targeted exams where dose is matched to indication/reason for exam; i.e. extremities or head) *Use of iterative reconstruction technique Total exam dose-length product 566 mGy-cm FINDINGS: QUALITY OF STUDY/CONTRAST BOLUS: Satisfactory. PULMONARY ARTERIES: No central or segmental pulmonary emboli. THORACIC AORTA: No aneurysm or dissection. LUNG: The lungs are expanded without any acute pneumonic consolidation. There is no pulmonary nodule, mass or groundglass density. PLEURA: No pleural effusion or pneumothorax. MEDIASTINUM: The thyroid lobes are symmetrical and normal. The central trachea and bronchi are widely patent. The heart size and the great vessels are normal caliber. There is no pericardial effusion. No abnormal size mediastinal or hilar lymph nodes seen. No evidence of septal bowing or right heart strain. CORONARY ARTERY CALCIFICATION: None visualized on this study. CHEST WALL/AXILLA: No axillary or internal mammary lymphadenopathy. OSSEOUS STRUCTURES: No aggressive lytic or sclerotic process seen. Mild ventral spondylosis seen throughout dorsal spine. UPPER ABDOMEN: Visualized liver spleen, pancreas and bilateral adrenal glands unremarkable. There are no radiopaque gallstones. No reflux of contrast into the hepatic veins to suggest elevated right heart pressures. CT/CT angio chest PE protocol IMPRESSION: 1. No evidence of PE. 2. No evidence of aortic dissection or aneurysm. 3. Lungs are clear VTE: Negative.
--- NOTE | ~2022-05-15 | XR_ITS ---
EXAMINATION: XR CHEST CLINICAL INFORMATION: Chest pain COMPARISON: None TECHNIQUE: Frontal view of the chest was obtained. FINDINGS: No significant abnormality is noted involving the heart, lungs, mediastinum, bony thorax or soft tissues. XR/XR chest 1V IMPRESSION: Unremarkable chest examination.
[2022-05-15 14:48] VITALS: BP 110/73; PULSE 130; RESP 18; TEMP 36.6; O2SAT 94; BMI 36.6
--- NOTE | 2022-05-15 14:48 | ED_ITS ---
HPI - General Adult General Chief complaint: Chest Pain <CHAVA Bryant - Last Filed: 05/15/22 14:49> Stated complaint: Chest pain <CHAVA Bryant - Last Filed: 05/15/22 14:49> Time Seen by Provider: 05/15/22 16:30 <CHAVA Bryant - Last Filed: 05/15/22 14:49> Source: patient and RN notes reviewed <Piero Barber - Last Filed: 05/15/22 19:00> Mode of arrival: ambulatory <Piero Barber - Last Filed: 05/15/22 19:00> History of Present Illness HPI narrative: 56-year-old male past medical history significant for atrial fibrillation on Pradaxa, obesity, diabetes, hypertension, obstructive sleep apnea presents for evaluation of chest pain patient reports the symptoms started about 1 week ago. His chest pain is intermittent. Currently his pain is a 5/10. The patient reports 1 week ago his press tender smoke signal, Dr. Marcelino stopped his sotalol and change him to digoxin and metoprolol. patient reports associated shortness of breath. He states his smart watch to [place] heart rate as high as 140s which happened earlier today prompting him to come to the emergency department today. The patient was also seen in this ER 3 days ago for similar symptoms and was discharged home <Piero Barber - Last Filed: 05/15/22 19:00> Related Data Home medications: Home Medications Medication Instructions Recorded Confirmed fluticasone propionate 50 1 spray intranasal DAILY 01/03/20 05/03/22 mcg/actuation nasal spray,suspension omeprazole 40 mg capsule,delayed 40 mg PO QAM PRN Heartburn 01/03/20 05/03/22 release primidone 50 mg tablet 50 mg PO BID 01/20/21 05/03/22 dabigatran etexilate 150 mg 150 mg PO BID 11/03/21 05/03/22 capsule (Pradaxa) baclofen 10 mg tablet 10 mg PO BEDTIME PRN Muscle Spasm 04/08/22 05/03/22 clobetasol 0.05 % topical ointment 1 appl topical BID 04/08/22 05/03/22 divalproex 500 mg tablet,delayed 500 mg PO DAILY 04/08/22 05/03/22 release cholecalciferol (vitamin D3) 50 50 mcg PO DAILY 05/12/22 mcg (2,000 unit) capsule divalproex 500 mg tablet,delayed 1,000 mg PO BEDTIME 05/12/22 release empagliflozin 25 mg tablet 25 mg PO DAILY 05/12/22 (Jardiance) ezetimibe 10 mg tablet 10 mg PO DAILY 05/12/22 melatonin 10 mg tablet 1 tab PO BEDTIME PRN Insomnia 05/12/22 sotalol 120 mg tablet 1 tab PO BID 05/12/22 Previous Rx's Medication Instructions Recorded lisinopril 5 mg tablet 5 mg PO DAILY 90 days #90 tabs 09/25/21 atorvastatin 80 mg tablet 80 mg PO DAILY 90 days #90 tabs 01/18/22 insulin regular hum U-500 conc 500 80 unit (0.16 mL) subcut TIDWMEAL 03/16/22 unit/mL(3 mL) subcut pen (Humulin #12 mL R U-500 (Conc) Insulin Kwikpen) dulaglutide 4.5 mg/0.5 mL See Rx Instructions .Route 04/20/22 subcutaneous pen injector .COMPLEX #2 mL (Trulicity) digoxin 125 mcg (0.125 mg) tablet 125 mcg PO DAILY #90 tabs 05/03/22 (Digox) metoprolol tartrate 50 mg tablet 50 mg PO BID #90 tabs 05/03/22 digoxin 250 mcg (0.25 mg) tablet 250 mcg PO DAILY #30 tabs 05/15/22 diltiazem HCl 60 mg tablet 60 mg PO BID #60 tabs 05/15/22 (Cardizem) <CHAVA Bryant - Last Filed: 05/15/22 14:49> Allergies/adverse reactions: Allergies Allergy/AdvReac Type Severity Reaction Status Date / Time Penicillins [PENICILLINS] Allergy Unknown UNKNOWN Verified 05/15/22 14:48 metformin AdvReac Unknown diarrhea Verified 05/15/22 14:48 <CHAVA Bryant - Last Filed: 05/15/22 14:49> Review of Systems Constitutional: Constitutional: Reports as per HPI, Denies chills, Denies fatigue and Denies fever(s) <Piero Barber - Last Filed: 05/15/22 19:00> Cardiovascular: Cardiovascular: Reports chest pain and Reports palpitations <Piero Barber - Last Filed: 05/15/22 19:00> Respiratory: Respiratory: Denies cough <Piero Barber - Last Filed: 05/15/22 19:00> Gastrointestinal: Gastrointestinal: Denies abdominal pain, Denies constipation and Denies vomiting <Piero Barber - Last Filed: 05/15/22 19:00> Genitourinary: Genitourinary: Denies difficulty urinating and Denies dysuria <Piero Barber - Last Filed: 05/15/22 19:00> Neurologic: Denies focal weakness <Piero Barber - Last Filed: 05/15/22 19:00> Endocrine: Endocrine: Denies fatigue and Reports palpitations <Piero Barber - Last Filed: 05/15/22 19:00> PMF Past Medical History Medical History: Medical History Diabetes type 2, uncontrolled Diabetic nephropathy associated with type 2 diabetes mellitus Dyslipidemia Essential hypertension Hyperparathyroidism Hypertension senior living (current) use of insulin Morbid obesity Nonischemic cardiomyopathy Obesity CLAUDIA (obstructive sleep apnea) Paroxysmal A-fib Type 2 diabetes mellitus with unspecified complications Typical atrial flutter Vitamin D deficiency <CHAVA Bryant - Last Filed: 05/15/22 14:49> Surgical History: Surgical History History of radiofrequency ablation procedure for cardiac arrhythmia Hx of colonoscopy <CHAVA Bryant - Last Filed: 05/15/22 14:49> Family History Family History: Family History Father Cancer Diabetes CVD (cardiovascular disease) Mother Diabetes <CHAVA Bryant - Last Filed: 05/15/22 14:49> Social History Social History: Social History Household Members: None Household Members Other:: Alcohol intake: former Patient Tobacco Use Status: Former Tobacco user Smoked in Last 30 Days: No Use of substances other than those prescribed or required for medical reasons: No Substance Use Type: Crack/Cocaine and Marijuana Advance Directives: No Advance Directives Information Provided: Yes Current occupational status: disabled Current occupation: left handed <CHAVA Bryant - Last Filed: 05/15/22 14:49> Physical Exam ED Vital Signs: Vital Signs - 24 hr 05/15/22 14:48 05/15/22 15:15 05/15/22 16:19 Temperature 97.8 F 98 F Pulse Rate 130 H 118 H 100 Respiratory Rate 18 18 25 H Blood Pressure 110/73 109/79 102/69 Pulse Oximetry 94 95 Oxygen Delivery Method Room Air Room Air Room Air 05/15/22 17:53 Temperature Pulse Rate 105 H Respiratory Rate 14 Blood Pressure 101/59 L Pulse Oximetry 95 Oxygen Delivery Method Room Air BMI result Body Mass Index 36.6 <CHAVA Bryant - Last Filed: 05/15/22 14:49> Vital Signs - 24 hr 05/15/22 14:48 05/15/22 15:15 05/15/22 16:19 Temperature 97.8 F 98 F Pulse Rate 130 H 118 H 100 Respiratory Rate 18 18 25 H Blood Pressure 110/73 109/79 102/69 Pulse Oximetry 94 95 Oxygen Delivery Method Room Air Room Air Room Air 05/15/22 17:53 Temperature Pulse Rate 105 H Respiratory Rate 14 Blood Pressure 101/59 L Pulse Oximetry 95 Oxygen Delivery Method Room Air BMI result Body Mass Index 36.6 <Piero Barber - Last Filed: 05/15/22 19:00> Const General: healthy appearing, comfortable, no acute distress, alert and awake <Piero Barber - Last Filed: 05/15/22 19:00> Nutritional Appearance: well nourished <Piero Barber - Last Filed: 05/15/22 19:00> Orientation/consciousness: patient oriented x3 <Piero Barber - Last Filed: 05/15/22 19:00> HENMT Head: Yes normocephalic and Yes atraumatic <Piero Barber - Last Filed: 05/15/22 19:00> Throat: Yes posterior oropharynx normal <Piero Barber - Last Filed: 05/15/22 19:00> Eyes Eyelids: Yes eyelids normal <Piero Barber - Last Filed: 05/15/22 19:00> Conjunctivae: conjunctivae normal < Last Filed: 05/15/22 19:00> Sclerae: sclerae normal < Last Filed: 05/15/22 19:00> Corneas: corneas normal < Last Filed: 05/15/22 19:00> Pupils: Equal, round and reactive pupils present < Last Filed: 05/15/22 19:00> EOM: EOMs intact bilaterally < Last Filed: 05/15/22 19:00> Neck Neck: Yes full ROM < Last Filed: 05/15/22 19:00> Resp Effort & Inspection: normal respiratory effort, able to speak in complete sentences, no audible wheezes and not labored < Last Filed: 05/15/22 19:00> Auscultation: clear to auscultation bilaterally < Last Filed: 05/15/22 19:00> Cardio Rate: abnormal rate and tachycardic < Last Filed: 05/15/22 19:00> Rhythm: abnormal rhythm < Last Filed: 05/15/22 19:00> GI Inspection: No distended < Last Filed: 05/15/22 19:00> Palpation (GI): Soft to palpation, not firm, nontender, no guarding and not rigid < Last Filed: 05/15/22 19:00> Auscultation: normoactive bowel sounds < Last Filed: 05/15/22 19:00> Skin General skin exam: no rashes or lesions noted and elasticity normal < Last Filed: 05/15/22 19:00> Neuro General: patient oriented x3 <Piero Last Filed: 05/15/22 19:00> Cranial nerves: Yes CN's II-XII intact bilaterally, Yes Equal, round and reactive pupils present and Yes Bilaterally intact EOM present < Last Filed: 05/15/22 19:00> Cognition (Neuro): normal cognition <Piero Barber - Last Filed: 05/15/22 19:00> Extrem Other: Moving all extremities well without any obvious deformities <Piero Barber - Last Filed: 05/15/22 19:00> Course Course Course Narrative: RME performed by Farhana Silverman PA-C. Patient is a 56 year old male with a history of HTN presenting to the emergency department with continued chest pain. Labs, EKG, and CXR ordered. Patient placed back in the waiting room pending room availability and results. <CHAVA Bryant - Last Filed: 05/15/22 14:49> Reevaluation(s) Reevaluation #1: patient re-evaluated, he reports feeling better, his heart rate is not a 7-90, blood pressure is remaining stable. I did discuss with the patient's press tender smoke signal, Dr. Marcelino. given the patient's digoxin level is low again, he recommended doubling the patient's dose of digoxin to 250 mcg daily and adding Cardizem 60 mg b.i.d. he will follow-up in the office. <Piero Barber - Last Filed: 05/15/22 19:00> Time: 18:53 <Piero Barber - Last Filed: 05/15/22 19:00> Medications Administered Discontinued Medications Generic Name Dose Route Start Last Admin Trade Name Freq PRN Reason Stop Dose Admin Diltiazem HCl 60 mg 05/15/22 16:54 05/15/22 17:52 Diltiazem Hcl 60 Mg Tablet PO 05/15/22 16:55 60 mg ONCE ONE Administration Protocol Sodium Chloride 1,000 mls @ 999 mls/hr 05/15/22 17:00 05/15/22 17:11 Ns IV 05/15/22 18:00 999 mls/hr .Q1H1M [place] Administration Iohexol 100 ml 05/15/22 17:36 05/15/22 17:40 Iohexol 350 Mg/Ml 100 Ml Infus..Btl IV 05/15/22 17:37 70 ml ONCE ONE Administration <CHAVA Bryant - Last Filed: 05/15/22 14:49> Medications Administered Discontinued Medications Generic Name Dose Route Start Last Admin Trade Name Carlos PRN Reason Stop Dose Admin Diltiazem HCl 60 mg 05/15/22 16:54 05/15/22 17:52 Diltiazem Hcl 60 Mg Tablet PO 05/15/22 16:55 60 mg ONCE ONE Administration Protocol Sodium Chloride 1,000 mls @ 999 mls/hr 05/15/22 17:00 05/15/22 17:11 Ns IV 05/15/22 18:00 999 mls/hr .Q1H1M [place] Administration Iohexol 100 ml 05/15/22 17:36 05/15/22 17:40 Iohexol 350 Mg/Ml 100 Ml Infus..Btl IV 05/15/22 17:37 70 ml ONCE ONE Administration <Piero Barber - Last Filed: 05/15/22 19:00> Medical Decision Making Medical Decision Making MDM Narrative: 56-year-old male presents for evaluation of rapid heart rate, chest pain or shortness of breath. He had a negative cardiac workup a few days ago. His symptoms seem to have started when his medication was adjusted from sotalol to digoxin and metoprolol. And on a digoxin level as 3 days ago it was undetectable. We will treat his tachycardia with Cardizem p.o.. His blood pressure was a mid systolic 102/69. He therefore will hold IV Cardizem time. Patient's EKG showed AFib without ischemic changes, but again the major cardiac event. The patient's troponin is less than 3.5 which was 3 days ago as well. I added on a CTA given the patient's tachypnea 25 respirations per minute assoc iated chest pain and shortness or breath. He is on Pradaxa , so pradaxa should be less likely <Piero Barber - Last Filed: 05/15/22 19:00> Differential Diagnosis Rapid AFib Medication noncompliance PE Dehydration Cardiac arrhythmia Metabolic abnormality ACS less likely <Piero Barber - Last Filed: 05/15/22 19:00> Lab Data no significant lab abnormalities. Digoxin level is pending at this time <Piero Barber - Last Filed: 05/15/22 19:00> Result Diagrams: 05/15/22 15:07 05/15/22 15:07 <CHAVA Bryant - Last Filed: 05/15/22 14:49> Labs: Lab Results 05/15/22 05/15/22 05/15/22 Range/Units 15:05 15:07 15:07 WBC 6.2 (4.8-10.8) X10*3/uL RBC 4.65 (4.60-5.80) X10*6/uL Hgb 14.1 (14.0-18.0) g/dl Hct 42.5 (42.0-52.0) % MCV 91.4 (80.0-98.0) fL MCH 30.3 (27.0-33.0) pg MCHC 33.2 (31.0-36.0) g/dl RDW 13.2 (11.0-16.0) % Plt Count 188 (160-400) X10*3/uL MPV 9.7 (9.4-12.4) fL Immature Gran % (Auto) 0.3 (0.0-0.4) % Neut % (Auto) 58.7 (45-73) % Lymph % (Auto) 31.3 (20-40) % [place]bour % (Auto) 8.2 (2-11) % Eos % (Auto) 1.0 (0-4) % Baso % (Auto) 0.5 (0-2) % Lymph # (Auto) 2.0 (1.2-4.9) X10*3/uL [place] # (Auto) 0.5 (0.1-1.2) X10*3/uL Eos # (Auto) 0.1 (0.0-0.4) X10*3/uL Baso # (Auto) 0.0 (0.0-0.2) X10*3/uL Abs Immat Gran (auto) 0.02 (0.00-0.03) X10*3/uL Absolute Neuts (auto) 3.7 (2.0-8.3) x10*3/uL Absolute Nucleated RBC 0.000 (0.0-0.012) X10*3/uL Nucleated RBC % (auto) 0.0 (0.0-0.2) /100WBC PT (10.0-13.1) SEC INR (0.9-1.1) APTT (26.0-36.4) SEC Sodium 137 (135-145) mmol/L Potassium 4.3 (3.3-5.1) mmol/L Chloride 104 (96-108) mmol/L Carbon Dioxide 21 L (22-29) mmol/L Anion Gap 16 (12-20) BUN 13 (9-16) mg/dL Creatinine 1.00 (0.5-1.4) mg/dL Estim Creat Clear Calc 108.8 Estimated GFR > 60 Random Glucose 284 H (60-115) mg/dL Calcium 8.8 D (8.4-10.2) mg/dL Magnesium 1.8 (1.6-2.6) mg/dL Total Bilirubin 0.6 (0.0-1.0) mg/dL AST 24 (5-37) U/L ALT 30 (0-40) U/L Alkaline Phosphatase 90 (39-117) U/L Troponin I High Sens (<3.5-35.0) ng/L B-Natriuretic Peptide (<100) pg/mL Total Protein 6.7 (6.5-8.0) g/dL Albumin 3.9 (3.5-5.0) g/dL Digoxin (0.8-2.0) ng/mL COVID-19 (TRAM) Negative (Negative) COVID-19 Clin Com See Note 05/15/22 05/15/22 05/15/22 Range/Units 15:07 15:07 15:07 WBC (4.8-10.8) X10*3/uL RBC (4.60-5.80) X10*6/uL Hgb (14.0-18.0) g/dl Hct (42.0-52.0) % MCV (80.0-98.0) fL MCH (27.0-33.0) pg MCHC (31.0-36.0) g/dl RDW (11.0-16.0) % Plt Count (160-400) X10*3/uL MPV (9.4-12.4) fL Immature Gran % (Auto) (0.0-0.4) % Neut % (Auto) (45-73) % Lymph % (Auto) (20-40) % [place]bour % (Auto) (2-11) % Eos % (Auto) (0-4) % Baso % (Auto) (0-2) % Lymph # (Auto) (1.2-4.9) X10*3/uL [place] # (Auto) (0.1-1.2) X10*3/uL Eos # (Auto) (0.0-0.4) X10*3/uL Baso # (Auto) (0.0-0.2) X10*3/uL Abs Immat Gran (auto) (0.00-0.03) X10*3/uL Absolute Neuts (auto) (2.0-8.3) x10*3/uL Absolute Nucleated RBC (0.0-0.012) X10*3/uL Nucleated RBC % (auto) (0.0-0.2) /100WBC PT 13.1 (10.0-13.1) SEC INR 1.1 (0.9-1.1) APTT 46.7 H (26.0-36.4) SEC Sodium (135-145) mmol/L Potassium (3.3-5.1) mmol/L Chloride (96-108) mmol/L Carbon Dioxide (22-29) mmol/L Anion Gap (12-20) BUN (9-16) mg/dL Creatinine (0.5-1.4) mg/dL Estim Creat Clear Calc Estimated GFR Random Glucose (60-115) mg/dL Calcium (8.4-10.2) mg/dL Magnesium (1.6-2.6) mg/dL Total Bilirubin (0.0-1.0) mg/dL AST (5-37) U/L ALT (0-40) U/L Alkaline Phosphatase (39-117) U/L Troponin I High Sens < 3.5 (<3.5-35.0) ng/L B-Natriuretic Peptide 37 (<100) pg/mL Total Protein (6.5-8.0) g/dL Albumin (3.5-5.0) g/dL Digoxin (0.8-2.0) ng/mL COVID-19 (TRAM) (Negative) COVID-19 Clin Com 05/15/22 Range/Units 15:07 WBC (4.8-10.8) X10*3/uL RBC (4.60-5.80) X10*6/uL Hgb (14.0-18.0) g/dl Hct (42.0-52.0) % MCV (80.0-98.0) fL MCH (27.0-33.0) pg MCHC (31.0-36.0) g/dl RDW (11.0-16.0) % Plt Count (160-400) X10*3/uL MPV (9.4-12.4) fL Immature Gran % (Auto) (0.0-0.4) % Neut % (Auto) (45-73) % Lymph % (Auto) (20-40) % Barbour % (Auto) (2-11) % Eos % (Auto) (0-4) % Baso % (Auto) (0-2) % Lymph # (Auto) (1.2-4.9) X10*3/uL [place] # (Auto) (0.1-1.2) X10*3/uL Eos # (Auto) (0.0-0.4) X10*3/uL Baso # (Auto) (0.0-0.2) X10*3/uL Abs Immat Gran (auto) (0.00-0.03) X10*3/uL Absolute Neuts (auto) (2.0-8.3) x10*3/uL Absolute Nucleated RBC (0.0-0.012) X10*3/uL Nucleated RBC % (auto) (0.0-0.2) /100WBC PT (10.0-13.1) SEC INR (0.9-1.1) APTT (26.0-36.4) SEC Sodium (135-145) mmol/L Potassium (3.3-5.1) mmol/L Chloride (96-108) mmol/L Carbon Dioxide (22-29) mmol/L Anion Gap (12-20) BUN (9-16) mg/dL Creatinine (0.5-1.4) mg/dL Estim Creat Clear Calc Estimated GFR Random Glucose (60-115) mg/dL Calcium (8.4-10.2) mg/dL Magnesium (1.6-2.6) mg/dL Total Bilirubin (0.0-1.0) mg/dL AST (5-37) U/L ALT (0-40) U/L Alkaline Phosphatase (39-117) U/L Troponin I High Sens (<3.5-35.0) ng/L B-Natriuretic Peptide (<100) pg/mL Total Protein (6.5-8.0) g/dL Albumin (3.5-5.0) g/dL Digoxin 0.3 L (0.8-2.0) ng/mL COVID-19 (TRAM) (Negative) COVID-19 Clin Com <CHAVA Bryant - Last Filed: 05/15/22 14:49> Lab Results 05/15/22 05/15/22 05/15/22 Range/Units 15:05 15:07 15:07 WBC 6.2 (4.8-10.8) X10*3/uL RBC 4.65 (4.60-5.80) X10*6/uL Hgb 14.1 (14.0-18.0) g/dl Hct 42.5 (42.0-52.0) % MCV 91.4 (80.0-98.0) fL MCH 30.3 (27.0-33.0) pg MCHC 33.2 (31.0-36.0) g/dl RDW 13.2 (11.0-16.0) % Plt Count 188 (160-400) X10*3/uL MPV 9.7 (9.4-12.4) fL Immature Gran % (Auto) 0.3 (0.0-0.4) % Neut % (Auto) 58.7 (45-73) % Lymph % (Auto) 31.3 (20-40) % Barbour % (Auto) 8.2 (2-11) % Eos % (Auto) 1.0 (0-4) % Baso % (Auto) 0.5 (0-2) % Lymph # (Auto) 2.0 (1.2-4.9) X10*3/uL Barbour # (Auto) 0.5 (0.1-1.2) X10*3/uL Eos # (Auto) 0.1 (0.0-0.4) X10*3/uL Baso # (Auto) 0.0 (0.0-0.2) X10*3/uL Abs Immat Gran (auto) 0.02 (0.00-0.03) X10*3/uL Absolute Neuts (auto) 3.7 (2.0-8.3) x10*3/uL Absolute Nucleated RBC 0.000 (0.0-0.012) X10*3/uL Nucleated RBC % (auto) 0.0 (0.0-0.2) /100WBC PT (10.0-13.1) SEC INR (0.9-1.1) APTT (26.0-36.4) SEC Sodium 137 (135-145) mmol/L Potassium 4.3 (3.3-5.1) mmol/L Chloride 104 (96-108) mmol/L Carbon Dioxide 21 L (22-29) mmol/L Anion Gap 16 (12-20) BUN 13 (9-16) mg/dL Creatinine 1.00 (0.5-1.4) mg/dL Estim Creat Clear Calc 108.8 Estimated GFR > 60 Random Glucose 284 H (60-115) mg/dL Calcium 8.8 D (8.4-10.2) mg/dL Magnesium 1.8 (1.6-2.6) mg/dL Total Bilirubin 0.6 (0.0-1.0) mg/dL AST 24 (5-37) U/L ALT 30 (0-40) U/L Alkaline Phosphatase 90 (39-117) U/L Troponin I High Sens (<3.5-35.0) ng/L B-Natriuretic Peptide (<100) pg/mL Total Protein 6.7 (6.5-8.0) g/dL Albumin 3.9 (3.5-5.0) g/dL Digoxin (0.8-2.0) ng/mL COVID-19 (TRAM) Negative (Negative) COVID-19 Clin Com See Note 05/15/22 05/15/22 05/15/22 Range/Units 15:07 15:07 15:07 WBC (4.8-10.8) X10*3/uL RBC (4.60-5.80) X10*6/uL Hgb (14.0-18.0) g/dl Hct (42.0-52.0) % MCV (80.0-98.0) fL MCH (27.0-33.0) pg MCHC (31.0-36.0) g/dl RDW (11.0-16.0) % Plt Count (160-400) X10*3/uL MPV (9.4-12.4) fL Immature Gran % (Auto) (0.0-0.4) % Neut % (Auto) (45-73) % Lymph % (Auto) (20-40) % Barbour % (Auto) (2-11) % Eos % (Auto) (0-4) % Baso % (Auto) (0-2) % Lymph # (Auto) (1.2-4.9) X10*3/uL Barbour # (Auto) (0.1-1.2) X10*3/uL Eos # (Auto) (0.0-0.4) X10*3/uL Baso # (Auto) (0.0-0.2) X10*3/uL Abs Immat Gran (auto) (0.00-0.03) X10*3/uL Absolute Neuts (auto) (2.0-8.3) x10*3/uL Absolute Nucleated RBC (0.0-0.012) X10*3/uL Nucleated RBC % (auto) (0.0-0.2) /100WBC PT 13.1 (10.0-13.1) SEC INR 1.1 (0.9-1.1) APTT 46.7 H (26.0-36.4) SEC Sodium (135-145) mmol/L Potassium (3.3-5.1) mmol/L Chloride (96-108) mmol/L Carbon Dioxide (22-29) mmol/L Anion Gap (12-20) BUN (9-16) mg/dL Creatinine (0.5-1.4) mg/dL Estim Creat Clear Calc Estimated GFR Random Glucose (60-115) mg/dL Calcium (8.4-10.2) mg/dL Magnesium (1.6-2.6) mg/dL Total Bilirubin (0.0-1.0) mg/dL AST (5-37) U/L ALT (0-40) U/L Alkaline Phosphatase (39-117) U/L Troponin I High Sens < 3.5 (<3.5-35.0) ng/L B-Natriuretic Peptide 37 (<100) pg/mL Total Protein (6.5-8.0) g/dL Albumin (3.5-5.0) g/dL Digoxin (0.8-2.0) ng/mL COVID-19 (TRAM) (Negative) COVID-19 Clin Com 05/15/22 Range/Units 15:07 WBC (4.8-10.8) X10*3/uL RBC (4.60-5.80) X10*6/uL Hgb (14.0-18.0) g/dl Hct (42.0-52.0) % MCV (80.0-98.0) fL MCH (27.0-33.0) pg MCHC (31.0-36.0) g/dl RDW (11.0-16.0) % Plt Count (160-400) X10*3/uL MPV (9.4-12.4) fL Immature Gran % (Auto) (0.0-0.4) % Neut % (Auto) (45-73) % Lymph % (Auto) (20-40) % Barbour % (Auto) (2-11) % Eos % (Auto) (0-4) % Baso % (Auto) (0-2) % Lymph # (Auto) (1.2-4.9) X10*3/uL Barbour # (Auto) (0.1-1.2) X10*3/uL Eos # (Auto) (0.0-0.4) X10*3/uL Baso # (Auto) (0.0-0.2) X10*3/uL Abs Immat Gran (auto) (0.00-0.03) X10*3/uL Absolute Neuts (auto) (2.0-8.3) x10*3/uL Absolute Nucleated RBC (0.0-0.012) X10*3/uL Nucleated RBC % (auto) (0.0-0.2) /100WBC PT (10.0-13.1) SEC INR (0.9-1.1) APTT (26.0-36.4) SEC Sodium (135-145) mmol/L Potassium (3.3-5.1) mmol/L Chloride (96-108) mmol/L Carbon Dioxide (22-29) mmol/L Anion Gap (12-20) BUN (9-16) mg/dL Creatinine (0.5-1.4) mg/dL Estim Creat Clear Calc Estimated GFR Random Glucose (60-115) mg/dL Calcium (8.4-10.2) mg/dL Magnesium (1.6-2.6) mg/dL Total Bilirubin (0.0-1.0) mg/dL AST (5-37) U/L ALT (0-40) U/L Alkaline Phosphatase (39-117) U/L Troponin I High Sens (<3.5-35.0) ng/L B-Natriuretic Peptide (<100) pg/mL Total Protein (6.5-8.0) g/dL Albumin (3.5-5.0) g/dL Digoxin 0.3 L (0.8-2.0) ng/mL COVID-19 (TRAM) (Negative) COVID-19 Clin Com <Piero Barber - Last Filed: 05/15/22 19:00> Independent Interpretation I performed an independent interpretation of an: EKG ( AFib with a rate of [address] segment elevation or depression.) <Piero Barber - Last Filed: 05/15/22 19:00> Discharge Plan Discharge Clinical Impression: Chest pain, Atrial fibrillation <CHAVA Bryant - Last Filed: 05/15/22 14:49> Patient Disposition: Home, Self-Care <CHAVA Bryant - Last Filed: 05/15/22 14:49> Instructions: A-fib (Atrial Fibrillation) (ED) <CHAVA Bryant - Last Filed: 05/15/22 14:49> Additional Instructions: Your workup in the emergency department was reassuring. I spoke to your press tender smoke signal who recommends the following medications continue taking the metoprolol 50 mg twice daily you are to increase your dose of digoxin to 250 mcg daily for which I have prescribed for you take Cardizem 60 mg twice daily which is another new prescription that I have prescribed <CHAVA Bryant - Last Filed: 05/15/22 14:49> Prescriptions: New digoxin 250 mcg (0.25 mg) tablet 250 mcg PO DAILY Qty: 30 0RF diltiazem HCl [Cardizem] 60 mg tablet 60 mg PO BID Qty: 60 0RF No Action lisinopril 5 mg tablet 5 mg PO DAILY 90 Days Qty: 90 4RF atorvastatin 80 mg tablet 80 mg PO DAILY 90 Days Qty: 90 1RF Humulin R U-500 (Conc) Kwikpen 500 unit/mL (3 mL) insulin pen 80 unit subcut TIDWMEAL Qty: 12 2RF Trulicity 4.5 mg/0.5 mL pen injector See Rx Instructions .ROUTE .COMPLEX Qty: 2 4RF Dose Instruction: INJECT ONE PEN (= 4.5 MG) SUBCUTANEOUSLY ONCE A WEEK DIRECTED Rx Instructions: INJECT ONE PEN (= 4.5 MG) SUBCUTANEOUSLY ONCE A WEEK DIRECTED Pradaxa 150 mg capsule 150 mg PO BID divalproex 500 mg tablet,delayed release (DR/EC) 1,000 mg PO BEDTIME ezetimibe 10 mg tablet 10 mg PO DAILY Jardiance 25 mg tablet 25 mg PO DAILY cholecalciferol (vitamin D3) 50 mcg (2,000 unit) capsule 50 mcg PO DAILY melatonin 10 mg tablet 1 tab PO BEDTIME PRN (Reason: Insomnia) sotalol 120 mg tablet 1 tab PO BID omeprazole 40 mg capsule,delayed release(DR/EC) 40 mg PO QAM PRN (Reason: Heartburn) fluticasone propionate 50 mcg/actuation spray,suspension 1 spray intranasal DAILY primidone 50 mg tablet 50 mg PO BID metoprolol tartrate 50 mg tablet 50 mg PO BID Qty: 90 1RF digoxin [Digox] 125 mcg (0.125 mg) tablet 125 mcg PO DAILY Qty: 90 1RF divalproex 500 mg tablet,delayed release (DR/EC) 500 mg PO DAILY clobetasol 0.05 % ointment 1 appl topical BID baclofen 10 mg tablet 10 mg PO BEDTIME PRN (Reason: Muscle Spasm) <CHAVA Bryant - Last Filed: 05/15/22 14:49> Referrals: Matias Marcelino MD [Physician] - (rapid a fib) <CHAVA Bryant - Last Filed: 05/15/22 14:49>
--- NOTE | 2022-05-15 14:49 | ECG_ITS ---
Test Reason : CHEST PAIN Blood Pressure : / mmHG Vent. Rate : 105 BPM Atrial Rate : 000 BPM P-R Int : 000 ms QRS Dur : 090 ms QT Int : 346 ms P-R-T Axes : 000 -29 049 degrees QTc Int : 457 ms Atrial fibrillation with rapid ventricular response Abnormal ECG When compared with ECG of 12-MAY-2022 18:23, No significant change was found Referred By: Farhana Silverman Electronically Signed By:LILLY SCNHEIDER
[2022-05-15 15:10] LABS: MANUAL DIFF FLAG NO
[2022-05-15 15:11] VITALS: PULSE 120
[2022-05-15 15:14] LABS: Basophils Percent Auto 0.5 % (0-2); Eosinophils Absolute Auto 0.1 X10*3/uL (0.0-0.4); Hematocrit 42.5 % (42.0-52.0); Hemoglobin 14.1 g/dl (14.0-18.0); Imm Gran Abs Auto 0.02 X10*3/uL (0.00-0.03); Imm Gran Pct Auto 0.3 % (0.0-0.4); Lymphocytes Percent Auto 31.3 % (20-40); Mean Corpuscular HGB Conc 33.2 g/dl (31.0-36.0); Mean Corpuscular Hemoglobin 30.3 pg (27.0-33.0); Mean Corpuscular Volume 91.4 fL (80.0-98.0); Mean Platelet Volume 9.7 fL (9.4-12.4); Monocytes Absolute Auto 0.5 X10*3/uL (0.1-1.2); Monocytes Percent Auto 8.2 % (2-11); Neutrophils Absolute Auto 3.7 x10*3/uL (2.0-8.3); Neutrophils Percent Auto 58.7 % (45-73); Platelet Count 188 X10*3/uL (160-400); Red Blood Count 4.65 X10*6/uL (4.60-5.80); Red Cell Distribution Width 13.2 % (11.0-16.0); White Blood Count 6.2 X10*3/uL (4.8-10.8)
[2022-05-15 15:15] VITALS: BP 109/79; PULSE 118; RESP 18; O2SAT 95
[2022-05-15 15:20] LABS: INTERNATIONAL NORM RATIO 1.1 (0.9-1.1); Prothrombin Time 13.1 SEC (10.0-13.1)
[2022-05-15 15:22] LABS: Partial Thromboplastin Time 46.7 SEC (26.0-36.4)
[2022-05-15 15:47] LABS: Alanine Aminotransferase 30 U/L (0-40); Albumin Level 3.9 g/dL (3.5-5.0); Alkaline Phosphatase 90 U/L (39-117); Anion Gap 16 (12-20); Aspartate Amino Transferase 24 U/L (5-37); Bilirubin Total 0.6 mg/dL (0.0-1.0); Blood Urea Nitrogen 13 mg/dL (9-16); Calcium 8.8 mg/dL (8.4-10.2); Carbon Dioxide 21 mmol/L (22-29); Chloride 104 mmol/L (96-108); Creatinine Clr Calc Pharmacy 108.8; Estimated Glomerular Filt Rate > 60; Glucose Random 284 mg/dL (60-115); Magnesium 1.8 mg/dL (1.6-2.6); Potassium 4.3 mmol/L (3.3-5.1); Sodium 137 mmol/L (135-145); Total Protein 6.7 g/dL (6.5-8.0); Troponin-I High Sensitivity < 3.5 ng/L (<3.5-35.0)
[2022-05-15 15:48] LABS: B Type Natriuretic Peptide 37 pg/mL (<100)
[2022-05-15 16:19] VITALS: BP 102/69; PULSE 100; RESP 25; TEMP 36.6
[2022-05-15] MEDS: 0.9 % Sodium Chloride 1,000 ML 999 ML IV (17:11)
--- NOTE | 2022-05-15 17:35 | PC.NURSE ---
patient getting CT of chest.
[2022-05-15] MEDS: iohexoL 350 MG/ML 100 ML INFUS..BTL IV (17:40)
[2022-05-15] MEDS: dilTIAZem HCL 60 MG TABLET PO (17:52)
[2022-05-15 17:53] VITALS: BP 101/59; PULSE 105; RESP 14; O2SAT 95
[2022-05-15 17:53] LABS: COVID-19 Test Negative (Negative); IDNOW Serial# 16C4AD1C
[2022-05-15 18:22] LABS: Digoxin 0.3 ng/mL (0.8-2.0)
== END 2022-05-15 19:55 | disposition home or self-care (01) ==
PROVIDERS: Physician Assistant; Physician Assistant Medical; Emergency Provider Student in an Organized Health Care Education/Training Program; PCP Family Medicine
DX: R07.9 Chest pain, unspecified (principal); I48.91 Unspecified atrial fibrillation; R00.0 Tachycardia, unspecified; R06.02 Shortness of breath; Z20.822 Contact with and (suspected) exposure to COVID-19; E11.9 Type 2 diabetes mellitus without complications; I10 Essential (primary) hypertension; E78.5 Hyperlipidemia, unspecified; I48.0 Paroxysmal atrial fibrillation; I48.19 Other persistent atrial fibrillation; E66.9 Obesity, unspecified; Z68.36 Body mass index [BMI] 36.0-36.9, adult; Z79.01 Long term (current) use of anticoagulants; Z79.899 Other long term (current) drug therapy; Z79.02 Long term (current) use of antithrombotics/antiplatelets; Z79.4 Long term (current) use of insulin
CPT/HCPCS: 36415; 71045; 71275; 80053; 80162; 83735; 83880; 84484; 85025; 85610; 85730; 87635; 93005; 99284; 99285; Q9967

== ENCOUNTER → 2022-05-17 12:52 | Outpatient (REF) | payer OTHER, SELFPAY ==
--- NOTE | 2022-05-17 12:55 | HM_ITS ---
Conclusion: 1. Patient was monitored for total period of 2 days and 23 hours 2. Baseline was atrial fibrillation with average heart rate of 97 beats per minute with overall heart rate borderline controlled, maximum heart rate 160 beats per minute 3. Very rare PVCs noted 4. No significant pauses noted 5. No patient reported symptoms MTDD
== END ==
LOC: HO.CARD 12:52
PROVIDERS: Visit Provider Internal Medicine
DX: I48.19 Other persistent atrial fibrillation (principal)
CPT/HCPCS: 93242

== ENCOUNTER 2022-05-21 11:32 | Outpatient (REF) | payer OTHER, SELFPAY | END 2022-05-21 11:33 | disposition home or self-care (01) | LOC: HO.HOSX 11:32 | PROVIDERS: Visit Provider Physician Assistant | DX: Z13.89 Encounter for screening for other disorder (principal) ==

== ENCOUNTER 2022-07-23 12:22 | Outpatient (REF) | payer OTHER, SELFPAY ==
[2022-07-23 12:41] LABS: MANUAL DIFF FLAG NO
[2022-07-23 13:04] LABS: Basophils Percent Auto 0.4 % (0-2); Eosinophils Absolute Auto 0.1 X10*3/uL (0.0-0.4); Eosinophils Percent Auto 1.2 % (0-4); Hematocrit 43.9 % (42.0-52.0); Hemoglobin 14.6 g/dl (14.0-18.0); Imm Gran Abs Auto 0.05 X10*3/uL (0.00-0.03); Imm Gran Pct Auto 0.7 % (0.0-0.4); Lymphocytes Absolute Auto 1.9 X10*3/uL (1.2-4.9); Lymphocytes Percent Auto 27.8 % (20-40); Mean Corpuscular HGB Conc 33.3 g/dl (31.0-36.0); Mean Corpuscular Hemoglobin 30.6 pg (27.0-33.0); Mean Platelet Volume 9.7 fL (9.4-12.4); Monocytes Absolute Auto 0.5 X10*3/uL (0.1-1.2); Monocytes Percent Auto 7.8 % (2-11); Neutrophils Absolute Auto 4.3 x10*3/uL (2.0-8.3); Neutrophils Percent Auto 62.1 % (45-73); Platelet Count 219 X10*3/uL (160-400); Red Blood Count 4.77 X10*6/uL (4.60-5.80); Red Cell Distribution Width 13.6 % (11.0-16.0); White Blood Count 6.9 X10*3/uL (4.8-10.8)
[2022-07-23 13:37] LABS: Anion Gap 12 (12-20); Blood Urea Nitrogen 13 mg/dL (9-16); Calcium 9.5 mg/dL (8.4-10.2); Carbon Dioxide 27 mmol/L (22-29); Chloride 104 mmol/L (96-108); Estimated Glomerular Filt Rate > 60; Glucose Random 167 mg/dL (60-115); Potassium 4.6 mmol/L (3.3-5.1); Sodium 138 mmol/L (135-145)
== END 2022-07-23 12:23 | disposition home or self-care (01) ==
LOC: HO.LAB 12:22
PROVIDERS: PCP Family Medicine; Visit Provider Internal Medicine
DX: Z01.810 Encounter for preprocedural cardiovascular examination (principal)
CPT/HCPCS: 36415; 80048; 85025

== ENCOUNTER → 2022-08-13 11:21 | Outpatient (BNVA) | payer OTHER, SELFPAY | PROVIDERS: PCP Family Medicine; Visit Provider Registered Nurse Diabetes Educator | DX: E11.8 Type 2 diabetes mellitus with unspecified complications (principal) | CPT/HCPCS: 99211 ==

== ENCOUNTER → 2022-08-24 10:51 | Outpatient (BNVA) | payer OTHER, SELFPAY | PROVIDERS: PCP Family Medicine; Visit Provider Internal Medicine Endocrinology, Diabetes & Metabolism | DX: E11.65 Type 2 diabetes mellitus with hyperglycemia (principal); Z79.4 Long term (current) use of insulin | CPT/HCPCS: 82947; 83036; 99212 ==

== ENCOUNTER 2022-09-04 11:23 | Emergency (ER) | payer OTHER, SELFPAY ==
--- NOTE | 2022-09-04 11:31 | ED.GENADULT ---
HPI - General Adult General Chief complaint: Chest Pain Stated complaint: chest pain , sob Time Seen by Provider: 09/04/22 12:14 Source: patient Mode of arrival: ambulatory Limitations: no limitations History of Present Illness HPI narrative: 57-year-old male who presents emergency department for evaluation of shortness breath, dizziness, palpitations and atrial fibrillation x3 days. Patient has a history of chronic atrial fibrillation he states that approximately 1 week prior he had a cardiac ablation for his atrial fibrillation. He states that he was in sinus rhythm for approximately 2-3 days. States that 4 days ago he was walking his dog and he knew that he went into atrial fibrillation he states that he could feel his heart racing, he felt short of breath, lightheaded and dizzy. He states that since that time he can feel his heart fluttering. He states that he has palpitations but no chest pain. He states he has episodes of cold sweats when his heart rate goes fast. He has shortness of breath and dyspnea on exertion. He had several episodes of diarrhea which resolved. He states that after the ablation the electrophysiology that was treating him started on sotalol 120 mg b.i.d.. He states that he had been on sotalol in the past and his force dispatcher here and stop that medication and had him on metoprolol and digoxin. Related Data Home Medications Medication Instructions Recorded Confirmed fluticasone propionate 50 1 spray intranasal DAILY 01/03/20 05/03/22 mcg/actuation nasal spray,suspension omeprazole 40 mg capsule,delayed 40 mg PO QAM PRN Heartburn 01/03/20 05/03/22 release primidone 50 mg tablet 50 mg PO BID 01/20/21 05/03/22 dabigatran etexilate 150 mg 150 mg PO BID 11/03/21 05/03/22 capsule (Pradaxa) baclofen 10 mg tablet 10 mg PO BEDTIME PRN Muscle Spasm 04/08/22 05/03/22 clobetasol 0.05 % topical ointment 1 appl topical BID 04/08/22 05/03/22 divalproex 500 mg tablet,delayed 500 mg PO DAILY 04/08/22 05/03/22 release cholecalciferol (vitamin D3) 50 50 mcg PO DAILY 05/12/22 mcg (2,000 unit) capsule divalproex 500 mg tablet,delayed 1,000 mg PO BEDTIME 05/12/22 release melatonin 10 mg tablet 1 tab PO BEDTIME PRN Insomnia 05/12/22 sotalol 120 mg tablet 1 tab PO BID 05/12/22 Previous Rx's Medication Instructions Recorded lisinopril 5 mg tablet 5 mg PO DAILY 90 days #90 tabs 09/25/21 atorvastatin 80 mg tablet 80 mg PO DAILY 90 days #90 tabs 01/18/22 dulaglutide 4.5 mg/0.5 mL See Rx Instructions .Route 04/20/22 subcutaneous pen injector .COMPLEX #2 mL (Trulicity) diltiazem HCl 60 mg tablet 60 mg PO BID #60 tabs 06/04/22 (Cardizem) insulin regular hum U-500 conc 500 80 unit (0.16 mL) subcut TID #12 mL 06/10/22 unit/mL(3 mL) subcut pen (Humulin R U-500 (Conc) Insulin Kwikpen) digoxin 250 mcg (0.25 mg) tablet 250 mcg PO QAM #30 tabs 06/30/22 metoprolol tartrate 50 mg tablet 50 mg PO BID #90 tabs 07/22/22 empagliflozin 25 mg tablet 25 mg PO QAM #30 tabs 08/23/22 (Jardiance) ezetimibe 10 mg tablet 10 mg PO QAM #30 tabs 08/23/22 Allergies Allergy/AdvReac Type Severity Reaction Status Date / Time Penicillins [PENICILLINS] Allergy Unknown UNKNOWN Verified 09/04/22 11:34 metformin AdvReac Unknown diarrhea Verified 09/04/22 11:34 Review of Systems Review of Systems: Yes all other systems are reviewed and are negative [facility] Past Medical History [facility] Narrative: Social history: He denies tobacco, alcohol and drug use. Medical History Diabetes type 2, uncontrolled Diabetic nephropathy associated with type 2 diabetes mellitus Dyslipidemia Essential hypertension Hyperparathyroidism Hypertension USP (current) use of insulin Morbid obesity Nonischemic cardiomyopathy Obesity CLAUDIA (obstructive sleep apnea) Paroxysmal A-fib Type 2 diabetes mellitus with unspecified complications Typical atrial flutter Vitamin D deficiency Surgical History History of radiofrequency ablation procedure for cardiac arrhythmia Hx of colonoscopy Family History Family History Father Cancer Diabetes CVD (cardiovascular disease) Mother Diabetes Social History Social History Household Members: None Household Members Other:: Alcohol intake: never Patient Tobacco Use Status: Former Tobacco user Smoked in Last 30 Days: No Use of substances other than those prescribed or required for medical reasons: No Substance Use Type: Crack/Cocaine and Marijuana Advance Directives: No Advance Directives Information Provided: Yes Current occupational status: disabled Current occupation: left handed Physical Exam ED Vital Signs: Vital Signs - 24 hr 09/04/22 11:34 09/04/22 11:54 09/04/22 16:08 Temperature 98 F 98.6 F Pulse Rate 85 106 H 104 H Respiratory Rate 18 18 14 Blood Pressure 108/68 113/81 109/73 Pulse Oximetry 95 95 98 Oxygen Delivery Method Room Air Room Air Room Air BMI result Body Mass Index 35.5 Const General: cooperative and no acute distress Orientation/consciousness: oriented to person and oriented to place Limitations: no limitations HENMT Head: Yes normal to inspection, Yes normocephalic and Yes atraumatic Ears: external ears normal General nose exam: Normal external nose present Face and sinus: Yes normal facial exam Mouth: Normal oral and palatal mucosa present Throat: Yes posterior oropharynx normal Eyes General: appearance normal, both eyes and all related structures Pupils: Equal, round and reactive pupils present Neck Neck: Yes normal visual inspection, Yes no lymphadenopathy, Yes trachea midline and Yes supple Chest Chest palpation & inspection: normal inspection of the chest and normal palpation of entire chest wall Resp Effort & Inspection: normal respiratory effort and able to speak in complete sentences Auscultation: clear to auscultation bilaterally Cardio Other: Direct regular rate rhythm, normal S1-S2 GI Inspection: Yes normal to inspection Palpation (GI): Soft to palpation, nontender and no guarding Auscultation: normal bowel sounds General: Yes no CVA tenderness Back/Spine/Pelvis Back: no CVA tenderness Skin General skin exam: no rashes or lesions noted Neuro General: oriented to person and oriented to place Cranial nerves: Yes CN's II-XII intact bilaterally and Yes Equal, round and reactive pupils present Cognition (Neuro): normal cognition Motor exam (neuro): 5 motor strength present throughout Extrem General: Yes normal to inspection Psych Appearance: grossly normal Speech and movement: Normal speech and movement present Affect: normal affect Attitude: cooperative Thought process: Normal thought process present Thought content: Normal thought content present Course Course Course Narrative: RME performed by Farhana Silverman PA-C. Patient is a 57 year old assigned male at presenting to the emergency department with chest pain. Labs, imaging, swab, and EKG ordered. Patient placed back in the waiting room pending room availability and results. Medical Decision Making Medical Decision Making MDM Narrative: 57-year-old male with a history of atrial fibrillation who had a cardiac ablation 1 week prior, who reports that he was in sinus rhythm for 2-3 days but then 4 days prior he went back into atrial fibrillation. He states that since then he has been having shortness of breath, dizziness and palpitations. The patient was started on sotalol 120 mg b.i.d. by the trustee of estate and the patient states that this medication had been stopped in the past by his cardiology and he was treated with metoprolol and digoxin in the past. The patient is taking Xarelto. Patient's physical examination was consistent with atrial fibrillation. The following tests were ordered: CBC, CMP, magnesium, PT/INR, PTT, troponin, COVID-19 1612: Patient laboratory evaluation did reveal an elevated glucose of 291 otherwise was unremarkable. Patient's high sensitive troponin I was detectable at 5.0 but not elevated. BNP was elevated 115 however chest x-ray is unremarkable. 1644: I did discuss the patient's presentation with the covering force dispatcher, Dr. Main He recommended the patient stay on sotalol I did discuss this with the patient, patient was discharged home . He was advised to follow-up this force dispatcher for further evaluation Differential Diagnosis Differential Diagnoses: The differential diagnosis associated with the presentation includes Differential diagnosis includes but is not limited to myocardial infarction, myocardial ischemia, electrolyte abnormalities, anemia, Admission/Observation Consideration of admission/observation: Escalation of care including admission/observation considered Consult Healthcare Provider Management of the patient was discussed with: Scientific Informatics Project Leader (Senior Principal Architect, Dr. Main) Lab Data [facility] Lab Attestation statement: I reviewed the patient's lab results. My interpretation patient's laboratory evaluation is as follows: CBC was normal. CMP was normal except for or elevated glucose 291. High sensitive troponin I was detectable but not elevated at 5.0. BNP was elevated 115. 09/04/22 11:47 09/04/22 11:47 Labs: Lab Results 09/04/22 09/04/22 09/04/22 Range/Units 11:47 11:47 11:47 WBC 5.9 (4.8-10.8) X10*3/uL RBC 4.76 (4.60-5.80) X10*6/uL Hgb 14.5 (14.0-18.0) g/dl Hct 43.2 (42.0-52.0) % MCV 90.8 (80.0-98.0) fL MCH 30.5 (27.0-33.0) pg MCHC 33.6 (31.0-36.0) g/dl RDW 13.2 (11.0-16.0) % Plt Count 241 (160-400) X10*3/uL MPV 9.8 (9.4-12.4) fL Immature Gran % (Auto) 0.7 H (0.0-0.4) % Neut % (Auto) 58.4 (45-73) % Lymph % (Auto) 30.7 (20-40) % Fleming % (Auto) 6.8 (2-11) % Eos % (Auto) 2.7 (0-4) % Baso % (Auto) 0.7 (0-2) % Lymph # (Auto) 1.8 (1.2-4.9) X10*3/uL Fleming # (Auto) 0.4 (0.1-1.2) X10*3/uL Eos # (Auto) 0.2 (0.0-0.4) X10*3/uL Baso # (Auto) 0.0 (0.0-0.2) X10*3/uL Abs Immat Gran (auto) 0.04 H (0.00-0.03) X10*3/uL Absolute Neuts (auto) 3.4 (2.0-8.3) x10*3/uL Absolute Nucleated RBC 0.000 (0.0-0.012) X10*3/uL Nucleated RBC % (auto) 0.0 (0.0-0.2) /100WBC PT 12.2 (10.0-13.1) SEC INR 1.1 (0.9-1.1) APTT 44.2 H (26.0-36.4) SEC Sodium 140 (135-145) mmol/L Potassium 3.9 (3.3-5.1) mmol/L Chloride 109 H (96-108) mmol/L Carbon Dioxide 21 L (22-29) mmol/L Anion Gap 14 (12-20) BUN 17 H (9-16) mg/dL Creatinine 0.88 (0.5-1.4) mg/dL Estim Creat Clear Calc 120.2 Estimated GFR > 60 Random Glucose 291 H (60-115) mg/dL Calcium 9.7 (8.4-10.2) mg/dL Magnesium 2.0 (1.6-2.6) mg/dL Total Bilirubin 0.5 (0.0-1.0) mg/dL AST 19 (5-37) U/L ALT 26 (0-40) U/L Alkaline Phosphatase 101 (39-117) U/L Troponin I High Sens (<3.5-35.0) ng/L B-Natriuretic Peptide (<100) pg/mL Total Protein 7.0 (6.5-8.0) g/dL Albumin 3.9 (3.5-5.0) g/dL COVID-19 (TRAM) (Negative) COVID-19 Clin Com 09/04/22 09/04/22 09/04/22 Range/Units 11:47 11:47 11:47 WBC (4.8-10.8) X10*3/uL RBC (4.60-5.80) X10*6/uL Hgb (14.0-18.0) g/dl Hct (42.0-52.0) % MCV (80.0-98.0) fL MCH (27.0-33.0) pg MCHC (31.0-36.0) g/dl RDW (11.0-16.0) % Plt Count (160-400) X10*3/uL MPV (9.4-12.4) fL Immature Gran % (Auto) (0.0-0.4) % Neut % (Auto) (45-73) % Lymph % (Auto) (20-40) % Fleming % (Auto) (2-11) % Eos % (Auto) (0-4) % Baso % (Auto) (0-2) % Lymph # (Auto) (1.2-4.9) X10*3/uL Fleming # (Auto) (0.1-1.2) X10*3/uL Eos # (Auto) (0.0-0.4) X10*3/uL Baso # (Auto) (0.0-0.2) X10*3/uL Abs Immat Gran (auto) (0.00-0.03) X10*3/uL Absolute Neuts (auto) (2.0-8.3) x10*3/uL Absolute Nucleated RBC (0.0-0.012) X10*3/uL Nucleated RBC % (auto) (0.0-0.2) /100WBC PT (10.0-13.1) SEC INR (0.9-1.1) APTT (26.0-36.4) SEC Sodium (135-145) mmol/L Potassium (3.3-5.1) mmol/L Chloride (96-108) mmol/L Carbon Dioxide (22-29) mmol/L Anion Gap (12-20) BUN (9-16) mg/dL Creatinine (0.5-1.4) mg/dL Estim Creat Clear Calc Estimated GFR Random Glucose (60-115) mg/dL Calcium (8.4-10.2) mg/dL Magnesium (1.6-2.6) mg/dL Total Bilirubin (0.0-1.0) mg/dL AST (5-37) U/L ALT (0-40) U/L Alkaline Phosphatase (39-117) U/L Troponin I High Sens 5.0 (<3.5-35.0) ng/L B-Natriuretic Peptide 115 H (<100) pg/mL Total Protein (6.5-8.0) g/dL Albumin (3.5-5.0) g/dL COVID-19 (TRAM) Negative (Negative) COVID-19 Clin Com See Note Independent Interpretation I performed an independent interpretation of an: EKG Interpretation: My interpretation patient's 12 EKG done at 11:27 hours is as follows: Atrial fibrillation with a rate of 109, normal AR interval QRS duration, no ST segment elevation, no ST segment depression, nonspecific T-wave abnormalities. My interpretation patient's chest x-ray is as follows: No acute disease Radiology Impression Discussion of test interpretation with radiology: I have reviewed the radiologist's reading. Radiologist Impression: XR chest 2V IMPRESSION: No acute disease. Dictated By:Lionel Gallegos MD External Record Review External record reviewed: Office record (Cardiology office notes) Chronic Conditions Patient?s care impacted by: Diabetes and Hypertension Discharge Plan Discharge Clinical Impression: Atrial fibrillation, Dyspnea, Fatigue Patient Disposition: Home, Self-Care Additional Instructions: Your blood work was unremarkable. Your high sensitive troponin I (marker of heart attack/heart damage) was not elevated which is reassuring. I did discuss your symptoms with the covering force dispatcher, Dr. Main. He recommended that you stay on the sotalol. Sometimes, after you have had a cardiac ablation, you can go in and out of atrial fibrillation over 2-3 weeks but hopeful the procedure will working keep you out of atrial fibrillation permanently. Follow-up with your your force dispatcher in 2-3 days. Please return to the emergency department if your symptoms get worse or if you develop any symptoms that are concerning to you. Prescriptions: No Action lisinopril 5 mg tablet 5 mg PO DAILY 90 Days Qty: 90 4RF atorvastatin 80 mg tablet 80 mg PO DAILY 90 Days Qty: 90 1RF Trulicity 4.5 mg/0.5 mL pen injector See Rx Instructions .ROUTE .COMPLEX Qty: 2 4RF Dose Instruction: INJECT ONE PEN (= 4.5 MG) SUBCUTANEOUSLY ONCE A WEEK DIRECTED Rx Instructions: INJECT ONE PEN (= 4.5 MG) SUBCUTANEOUSLY ONCE A WEEK DIRECTED diltiazem HCl [Cardizem] 60 mg tablet 60 mg PO BID Qty: 60 0RF Humulin R U-500 (Conc) Kwikpen 500 unit/mL (3 mL) insulin pen 80 unit subcut TID Qty: 12 2RF digoxin 250 mcg (0.25 mg) tablet 250 mcg PO QAM Qty: 30 5RF metoprolol tartrate 50 mg tablet 50 mg PO BID Qty: 90 1RF ezetimibe 10 mg tablet 10 mg PO QAM Qty: 30 4RF Jardiance 25 mg tablet 25 mg PO QAM Qty: 30 4RF Pradaxa 150 mg capsule 150 mg PO BID divalproex 500 mg tablet,delayed release (DR/EC) 1,000 mg PO BEDTIME cholecalciferol (vitamin D3) 50 mcg (2,000 unit) capsule 50 mcg PO DAILY melatonin 10 mg tablet 1 tab PO BEDTIME PRN (Reason: Insomnia) sotalol 120 mg tablet 1 tab PO BID omeprazole 40 mg capsule,delayed release(DR/EC) 40 mg PO QAM PRN (Reason: Heartburn) fluticasone propionate 50 mcg/actuation spray,suspension 1 spray intranasal DAILY primidone 50 mg tablet 50 mg PO BID divalproex 500 mg tablet,delayed release (DR/EC) 500 mg PO DAILY clobetasol 0.05 % ointment 1 appl topical BID baclofen 10 mg tablet 10 mg PO BEDTIME PRN (Reason: Muscle Spasm) Interventions: ED Discharge Assessment Last Done: 09/04/22 17:11 Discharge Date/Time: 09/04/22 17:11
[2022-09-04 11:34] VITALS: BP 108/68; PULSE 85; RESP 18; TEMP 36.6; O2SAT 95; BMI 35.5
[2022-09-04 11:54] VITALS: BP 113/81; PULSE 106; RESP 18; TEMP 37; O2SAT 95
--- NOTE | 2022-09-04 12:08 | PC.NURSE ---
pt a&ox3. skin appropriate for ethnicity. respirations equal and unlabored. lung sounds clear bilaterally. pt reports constant chest pain for 2 days that worsens with walking and laying flat.
[2022-09-04 16:08] VITALS: BP 109/73; PULSE 104; RESP 14; O2SAT 98
== END 2022-09-04 17:11 | disposition home or self-care (01) ==
PROVIDERS: Emergency Provider Emergency Medicine Emergency Medical Services; PCP Family Medicine
DX: I48.91 Unspecified atrial fibrillation (principal); R53.83 Other fatigue; R06.00 Dyspnea, unspecified; Z20.822 Contact with and (suspected) exposure to COVID-19; R06.02 Shortness of breath; E11.9 Type 2 diabetes mellitus without complications; I10 Essential (primary) hypertension; E78.5 Hyperlipidemia, unspecified; I48.0 Paroxysmal atrial fibrillation; E66.9 Obesity, unspecified; Z68.35 Body mass index [BMI] 35.0-35.9, adult; Z79.899 Other long term (current) drug therapy; Z79.4 Long term (current) use of insulin; Z87.891 Personal history of nicotine dependence; Z79.02 Long term (current) use of antithrombotics/antiplatelets
CPT/HCPCS: 71046; 80053; 83735; 83880; 84484; 85025; 85610; 85730; 87635; 93005; 99283; 99285

== ENCOUNTER → 2022-09-09 12:37 | Outpatient (BNVA) | payer OTHER, SELFPAY | PROVIDERS: PCP Family Medicine; Visit Provider Nurse Practitioner Family | DX: I48.19 Other persistent atrial fibrillation (principal); I10 Essential (primary) hypertension; Z79.01 Long term (current) use of anticoagulants | CPT/HCPCS: 93005; 99212 ==

== ENCOUNTER 2022-10-07 06:36 | Outpatient (REF) | payer OTHER, SELFPAY ==
[2022-10-07 06:52] LABS: MANUAL DIFF FLAG NO
[2022-10-07 07:12] LABS: Basophils Percent Auto 0.6 % (0-2); Eosinophils Absolute Auto 0.3 X10*3/uL (0.0-0.4); Eosinophils Percent Auto 7.2 % (0-4); Hematocrit 42.6 % (42.0-52.0); Hemoglobin 13.8 g/dl (14.0-18.0); Imm Gran Abs Auto 0.01 X10*3/uL (0.00-0.03); Imm Gran Pct Auto 0.2 % (0.0-0.4); Lymphocytes Absolute Auto 1.7 X10*3/uL (1.2-4.9); Lymphocytes Percent Auto 36.4 % (20-40); Mean Corpuscular HGB Conc 32.4 g/dl (31.0-36.0); Mean Corpuscular Hemoglobin 30.5 pg (27.0-33.0); Mean Platelet Volume 9.9 fL (9.4-12.4); Monocytes Absolute Auto 0.5 X10*3/uL (0.1-1.2); Monocytes Percent Auto 10.6 % (2-11); Neutrophils Absolute Auto 2.1 x10*3/uL (2.0-8.3); Platelet Count 200 X10*3/uL (160-400); Red Blood Count 4.53 X10*6/uL (4.60-5.80); Red Cell Distribution Width 13.4 % (11.0-16.0); White Blood Count 4.7 X10*3/uL (4.8-10.8)
[2022-10-07 07:56] LABS: Valproate 66.9 mcg/mL (50.0-100.0)
[2022-10-07 08:07] LABS: Alanine Aminotransferase 24 U/L (0-40); Albumin Level 3.9 g/dL (3.5-5.0); Alkaline Phosphatase 88 U/L (39-117); Anion Gap 15 (12-20); Aspartate Amino Transferase 17 U/L (5-37); Bilirubin Total 0.3 mg/dL (0.0-1.0); Blood Urea Nitrogen 17 mg/dL (9-16); Calcium 9.5 mg/dL (8.4-10.2); Carbon Dioxide 24 mmol/L (22-29); Chloride 106 mmol/L (96-108); Estimated Glomerular Filt Rate > 60; Glucose Random 192 mg/dL (60-115); Potassium 4.2 mmol/L (3.3-5.1); Sodium 141 mmol/L (135-145); Total Protein 6.9 g/dL (6.5-8.0)
[2022-10-07 08:26] LABS: Thyroid Stimulating Hormone 4.65 uIU/mL (0.32-4.0)
== END 2022-10-07 06:37 | disposition home or self-care (01) ==
LOC: HO.LAB 06:36
PROVIDERS: PCP Family Medicine; Visit Provider Psychiatry & Neurology Psychiatry
DX: Z79.899 Other long term (current) drug therapy (principal)
CPT/HCPCS: 36415; 80053; 80164; 84443; 85025

== ENCOUNTER 2022-10-12 08:00 | Outpatient (AMB) | payer OTHER, SELFPAY ==
--- NOTE | 2022-10-12 08:41 | A.OFFVIS_ITS ---
Intake Intake Visit Reasons: DM Mining Detail Draftsperson Required: No Accompanied by: Self / Same As Patient Allergies Penicillins [PENICILLINS] Allergy (Unknown, Verified 09/09/22 13:01) UNKNOWN metformin Adverse Reaction (Unknown, Verified 09/09/22 13:01) diarrhea HPI Comprehensive Diabetes Asmnt Most Recent Diabetes Results: Creatinine 0.75 mg/dL (0.5-1.4) 10/07/22 Blood Urea Nitrogen 17 mg/dL (9-16) H 10/07/22 Sodium 141 mmol/L (135-145) 10/07/22 Potassium 4.2 mmol/L (3.3-5.1) 10/07/22 Chloride 106 mmol/L (96-108) 10/07/22 Carbon Dioxide 24 mmol/L (22-29) 10/07/22 Calcium 9.5 mg/dL (8.4-10.2) 10/07/22 AST 17 U/L (5-37) 10/07/22 ALT 24 U/L (0-40) 10/07/22 Total Protein 6.9 g/dL (6.5-8.0) 10/07/22 Albumin 3.9 g/dL (3.5-5.0) 10/07/22 [facility] Medical History Diabetes type 2, uncontrolled Diabetic nephropathy associated with type 2 diabetes mellitus Dyslipidemia Essential hypertension Hyperparathyroidism Hypertension 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 Morbid obesity Nonischemic cardiomyopathy Obesity CLAUDIA (obstructive sleep apnea) Paroxysmal A-fib Type 2 diabetes mellitus with unspecified complications Typical atrial flutter Vitamin D deficiency Surgical History History of radiofrequency ablation procedure for cardiac arrhythmia Hx of colonoscopy Family History Father Cancer Diabetes CVD (cardiovascular disease) Mother Diabetes Social History Household Members: None Household Members Other:: Alcohol intake: never Patient Tobacco Use Status: Former Tobacco user Substance Use Type: Crack/Cocaine and Marijuana Current occupational status: disabled Current occupation: left handed Assessment & Plan Assessment & Plan (1) Type 2 diabetes mellitus with unspecified complications: Code(s): E11.8 - Type 2 diabetes mellitus with unspecified complications Plan: Learning objectives: The patient was provided with verbal and written education on the following topics as outlined below. The patient met all learning objectives and was able to verbalize understanding and provide teach back of education topics discussed . The patient was provided with the opportunity to ask questions and all questions were answered. Patient Assessment Assess patient education level/literacy/barriers Patient questions/concerns, patient using Trulicity 4.5 mg weekly, Jardiance 25 mg daily, Humulin R U 500 80 units t.i.d. Patient reports missing insulin doses 2 to 3 times a week and morning dose if not eating breakfast will skip. Reviewed with patient taking all doses of prescribed medication in order to better control glucose levels What is Diabetes? Pathophysiology How the body produces and uses insulin Identify type of DM Risk factors Signs of Diabetes Brief overview of Diabetes Management Monitoring blood sugar Following a meal plan Regular exercise Maintaining a healthy weight Taking medication as needed Members of the care team (PCP, RN, MA, RD, CDE, rock contractor) Blood glucose monitoring When/how often to test Target blood sugar ranges Patient using Dexcom G7 Average glucose for the past 2 weeks 236 mg/dL Patient above target 80% Patient at target 20% Patient below target 0% Introduction to Nutrition Importance of healthy diet in managing DM Diet is personalized to individual preference Review patient?s regular diet/food preferences Who prepares meals/does food shopping/ Dining out?/ Barriers? How diet effects glucose Eating 3 balanced meals a day with small, healthy snacks between meals Review food groups Carbohydrates: What is a carbohydrate/Which food/food groups are considered carbohydrates Effect of carbohydrates on blood glucose Portion sizes Reading food labels Basic carb counting (if applicable per nursing assessment) Plate method Meal planning Recommendations: Follow plate method, consistent carbs and read nutritional labels. Smart Goal: Patient will set up reminder to take u500 insulin 30 minutes before each meal Educational Materials: The patient was provided with the following written educational materials: Planning Healthy Meals Handout Patient Response to instructions: Comprehension of Instructions: Fair Readiness to make changes: Contemplation How confident they feel about making changes: fair Patient Instructions: Test blood sugar as directed; Fasting and 2hpp largest meal. Watch trends in results. Utilize results and to assess how food, physical activity and medications affect blood sugar results. Bring glucometer or CGM to next visit. Be knowledgeable about diabetes medication, its action, side effects, efficacy, toxicity, prescribed dosage, appropriate timing and frequency of administration, effect of missed and delayed doses and instructions for storage, travel and safety. Put up reminder sign to take insulin 30 minutes before meals on bathroom mirror and on refrigerator Follow-up with asthma educator in 1 month Coding Level of Care Code Est Pt Level 1 (15019) Diagnoses Type 2 diabetes mellitus with unspecified complications E11.8
== END 2022-10-12 08:43 | disposition home or self-care (01) ==
PROVIDERS: PCP Family Medicine; Visit Provider Registered Nurse Diabetes Educator
DX: E11.8 Type 2 diabetes mellitus with unspecified complications (principal)

== ENCOUNTER → 2022-10-12 08:00 | Outpatient (BNVA) | payer OTHER, SELFPAY | PROVIDERS: PCP Family Medicine; Visit Provider Registered Nurse Diabetes Educator | DX: E11.65 Type 2 diabetes mellitus with hyperglycemia (principal); E11.21 Type 2 diabetes mellitus with diabetic nephropathy; Z79.4 Long term (current) use of insulin | CPT/HCPCS: 99211 ==

== ENCOUNTER 2022-10-14 10:56 | Outpatient (REF) | payer OTHER, SELFPAY ==
[2022-10-14 12:59] LABS: MANUAL DIFF FLAG NO
[2022-10-14 13:10] LABS: Basophils Percent Auto 0.6 % (0-2); Eosinophils Absolute Auto 0.5 X10*3/uL (0.0-0.4); Eosinophils Percent Auto 7.7 % (0-4); Hematocrit 44.9 % (42.0-52.0); Hemoglobin 14.7 g/dl (14.0-18.0); Imm Gran Abs Auto 0.04 X10*3/uL (0.00-0.03); Imm Gran Pct Auto 0.6 % (0.0-0.4); Lymphocytes Percent Auto 32.5 % (20-40); Mean Corpuscular HGB Conc 32.7 g/dl (31.0-36.0); Mean Corpuscular Hemoglobin 30.9 pg (27.0-33.0); Mean Corpuscular Volume 94.5 fL (80.0-98.0); Mean Platelet Volume 10.1 fL (9.4-12.4); Monocytes Absolute Auto 0.5 X10*3/uL (0.1-1.2); Monocytes Percent Auto 7.7 % (2-11); Neutrophils Absolute Auto 3.2 x10*3/uL (2.0-8.3); Neutrophils Percent Auto 50.9 % (45-73); Platelet Count 199 X10*3/uL (160-400); Red Blood Count 4.75 X10*6/uL (4.60-5.80); Red Cell Distribution Width 13.9 % (11.0-16.0); White Blood Count 6.2 X10*3/uL (4.8-10.8)
[2022-10-14 13:21] LABS: Alanine Aminotransferase 24 U/L (0-40); Alkaline Phosphatase 81 U/L (39-117); Anion Gap 13 (12-20); Aspartate Amino Transferase 23 U/L (5-37); Bilirubin Direct 0.2 mg/dL (0.0-0.5); Bilirubin Total 0.5 mg/dL (0.0-1.0); Blood Urea Nitrogen 13 mg/dL (9-16); Calcium 9.7 mg/dL (8.4-10.2); Carbon Dioxide 27 mmol/L (22-29); Chloride 106 mmol/L (96-108); Cholesterol 128 mg/dL; Estimated Glomerular Filt Rate > 60; Glucose Random 139 mg/dL (60-115); HDL Cholesterol 32 mg/dL; LDL Cholesterol Calculated 77 mg/dl; Potassium 4.6 mmol/L (3.3-5.1); Sodium 141 mmol/L (135-145); Total Protein 7.3 g/dL (6.5-8.0); Triglycerides 96 mg/dL
[2022-10-14 13:40] LABS: Prostate Specific Antigen 0.48 ng/mL (<0.05-4.0)
[2022-10-14 14:54] LABS: Microalbum/Creatinine Ratio Ur 12.7 ug/mg cr
[2022-10-15 03:29] LABS: HIV AB/AG Nonreactive (Nonreactive); HIV Num 1 0.06 S/CO (0.00-0.99)
[2022-10-15 03:39] LABS: ~HepC Num1 0.24 S/CO (0.00-0.79); ~Hepatitis C Antibody Nonreactive (Nonreactive)
== END 2022-10-14 10:57 | disposition home or self-care (01) ==
LOC: HO.HHCL 10:56
PROVIDERS: Visit Provider Family Medicine
DX: Z12.5 Encounter for screening for malignant neoplasm of prostate (principal); Z11.3 Encounter for screening for infections with a predominantly sexual mode of transmission; Z11.4 Encounter for screening for human immunodeficiency virus [HIV]; E78.5 Hyperlipidemia, unspecified; E11.65 Type 2 diabetes mellitus with hyperglycemia; I48.20 Chronic atrial fibrillation, unspecified; Z79.4 Long term (current) use of insulin; Z80.42 Family history of malignant neoplasm of prostate
CPT/HCPCS: 36415; 80048; 80061; 80076; 82043; 84153; 85025; 86803; 87389

== ENCOUNTER 2022-11-24 11:12 | Outpatient (AMB) | payer OTHER, SELFPAY ==
[2022-11-24 11:14] VITALS: BP 102/64; PULSE 88; BMI 36.0
--- NOTE | 2022-11-24 11:14 | MHC.OFFVIS ---
Intake Vital Signs 11/24/22 11:14 Height 6 ft Weight 265 lb 6.985 oz BMI 36.0 BP 102/64 Blood Pressure Location Rt brachial Position Sitting Pulse 88 Pulse Source Pulse Oximeter Intake Visit Reasons: f/u Type 2 DM/Confirmed Intake Note: Patient present today to follow up on Type 2 Diabetes Mellitus. Patient receives DME supplies through: [facility] Last Diabetic Eye exam: 10/2022 Last Podiatry Visit: Does not see a Micro Photographer Random Glucose: 129 mg/dl HgA1C: 9.1% Laboratory Equipment Cleaner Required: No Accompanied by: Self / Same As Patient Allergies Penicillins [PENICILLINS] Allergy (Unknown, Verified 11/24/22 11:21) UNKNOWN metformin Adverse Reaction (Unknown, Verified 11/24/22 11:21) diarrhea HPI HPI Comments History of Present Illness Details Patient is 57-year-old malewith DM type 2 diagnosed 2006, who presents for management of diabetes. Past medical history: AFIB, CHF, obesity, dyslipidemia, HTN, CLAUDIA on BIPAP, h/o low Vit D, depression, OA.. Micro and macrovascular complications: Nephropathy Diabetes medications: Humulin U 500 80 units 2 Xa day, Trulicity4.5 mg per week, Jardiance 25 mg daily. Patient previously intolerant to metformin. Intolerant of Jardiance due to yeast infection. Actos was stopped few years ago he has mild decrease ejection fraction. Blood glucose monitoring: We were unable to download his Dexcom today Symptoms reported: denies numbness, tingling, cramping in lower extremities Hypoglycemia: very rare Exercise: not walking as much . 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-time ago Ophthalmology evaluation:last mo -no retinopathy but cataracts Laboratory Tests 11/18/20 03/03/21 03/04/21 14:19 15:04 09:14 Creatinine Estimated GFR Fasting Glucose 197 H Hgb A1c (Clinic) 9.6 H Triglycerides 196 Cholesterol 132 LDL Cholesterol Di rect LDL Cholesterol, C alc 70 HDL Cholesterol 23 25-OH Vitamin D To ursula 41.0 TSH 1.78 Free T4 0.97 03/04/21 03/05/21 09:14 12:25 Creatinine 0.84 Estimated GFR > 60 Fasting Glucose Hgb A1c (Clinic) Triglycerides Cholesterol LDL Cholesterol Di rect 69 LDL Cholesterol, C alc HDL Cholesterol 25-OH Vitamin D To ursula TSH Free T4 03/04/21 09:05 Microalb/Creat Rat io 52.4 PFSH Medical History Diabetes type 2, uncontrolled Diabetic nephropathy associated with type 2 diabetes mellitus Dyslipidemia Essential hypertension Hyperparathyroidism 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 Morbid obesity Nonischemic cardiomyopathy Obesity CLAUDIA (obstructive sleep apnea) Paroxysmal A-fib Type 2 diabetes mellitus with unspecified complications Typical atrial flutter Vitamin D deficiency Surgical History History of radiofrequency ablation procedure for cardiac arrhythmia Hx of colonoscopy Family History Father Cancer Diabetes CVD (cardiovascular disease) Mother Diabetes Social History Household Members: None Household Members Other:: Alcohol intake: never Patient Tobacco Use Status: Former Tobacco user Substance Use Type: Crack/Cocaine and Marijuana Current occupational status: disabled Current occupation: left handed Physical Exam Vital Signs: Last Vital Signs Pulse 88 11/24/22 11:14 BP 102/64 11/24/22 11:14 BMI result Body Mass Index 36.0 Absence of Cushingoid features. Absence of acromegalic features. Neck exam reveals nl size thyroid about 15 gms. No thyroid nodules palpable. No carotid bruits present. Lungs CTA. Heart S1 S2, Reg R/R. No M/R/ G. Skin exam reveals absence of vitiligo or acanthosis nigricans. Abdominal exam reveals Soft NT/ND with NA BS. No organomegaly present. Neck Other: . Extrem Other: Visual exam of foot performed. No ulcerations or open lesions. No onchomycosis, no callouses.Pulses 2 + distally Sensation intact to monofilament exam. Vibratory sensation sensed is i decreased with 128 Hz tuning fork Results AMB Hemoglobin A1c AMB Hemoglobin A1c 9.1 % Last Edit by Kristina Bradford on 11/24/22 11:33 Results Reviewed Results Reviewed: 11/24/22 11:23 Glucose, Whole Blood Routine Laboratory Last Values Glucose (Clinic) 129 mg/dL (60-115) H 11/24/22 11:23 Hgb A1c (Clinic) 9.1 % (4.0-6.0) H 11/24/22 11:28 Assessment & Plan Assessment & Plan (1) Diabetes type 2, uncontrolled: Code(s): E11.65 - Type 2 diabetes mellitus with hyperglycemia Plan: This is a 56-year-old male with a history of type 2 diabetes being treated with Trulicity, Jardiance and U-500 insulin with poor glycemic control and known microvascular complications namely nephropathy. The plan is to have the patient follow-up with the doffer to make sure the Dexcom is functioning. Once is in place, when the patient meets with doffer, could switch switching Trulicity to mounjaro . We could also consider the idea of using the U-500 insulin in insulin pump I have Omnipod 5 or tandem. Unfortunately, today cannot make any adjustments the patient insulin regimen because of lack of data Orders: Orders AMB Hemoglobin A1c Today E11.8 - Type 2 diabetes mellitus with unspecified complications Coding Level of Care Code Est Pt Level 4 (05311) Diagnoses Diabetes type 2, uncontrolled E11.65
[2022-11-24 11:27] LABS: Glucose, Whole Blood 129 mg/dL (60-115)
== END 2022-11-24 11:50 | disposition home or self-care (01) ==
PROVIDERS: PCP Family Medicine; Visit Provider Internal Medicine Endocrinology, Diabetes & Metabolism
DX: E11.8 Type 2 diabetes mellitus with unspecified complications (principal); E11.65 Type 2 diabetes mellitus with hyperglycemia
CPT/HCPCS: 99214

== ENCOUNTER → 2022-11-24 11:12 | Outpatient (BNVA) | payer OTHER, SELFPAY | PROVIDERS: PCP Family Medicine; Visit Provider Internal Medicine Endocrinology, Diabetes & Metabolism | DX: E11.65 Type 2 diabetes mellitus with hyperglycemia (principal); Z79.4 Long term (current) use of insulin | CPT/HCPCS: 82947; 83036; 99212 ==

== ENCOUNTER 2023-01-06 13:20 | Outpatient (AMB) | payer OTHER, SELFPAY ==
--- NOTE | 2023-01-06 14:12 | A.OFFVIS_ITS ---
Intake Vital Signs 01/06/23 14:13 Height 6 ft Weight 265 lb 6.985 oz BMI 36.0 BP 122/64 Blood Pressure Location Lt brachial Position Sitting Pulse 88 Intake Visit Reasons: follow up Telemarketing Representative Required: No Accompanied by: Self / Same As Patient Allergies Penicillins [PENICILLINS] Allergy (Unknown, Verified 01/06/23 14:16) UNKNOWN metformin Adverse Reaction (Unknown, Verified 01/06/23 14:16) diarrhea Medication List - Last Reconciled 01/06/23 by Evonne Gillespie NP atorvastatin 80 mg PO BEDTIME baclofen 10 mg PO BEDTIME PRN cholecalciferol (vitamin D3) 50 mcg PO DAILY dabigatran etexilate (Pradaxa) 150 mg PO BID divalproex 1,000 mg PO BEDTIME dulaglutide (Trulicity) 4.5 mg (0.5 mL) subcut QWEEK empagliflozin (Jardiance) 25 mg PO QAM ezetimibe 10 mg PO QAM fluticasone propionate 50 mcg/actuation 1 spray intranasal DAILY insulin regular hum U-500 conc (Humulin R U-500 (Conc) Insulin Kwikpen) 80 units (0.16 mL) subcut TID lisinopril 5 mg PO DAILY 90 days melatonin 1 tab PO BEDTIME PRN omeprazole 40 mg PO QAM PRN primidone 50 mg PO BID sotalol 120 mg PO BID HPI HPI Comments History of Present Illness Details 57-year-old male presents for a follow-u p. He reports doing well. He reports an occational episode of atrial fibrillation but less since he has been restarted on Sotalol. He reports no chest pain, dizziness, palpitations or swelling. He reports no bleeding issues. He reports he still does not use a CPAP as he feels it suffocates him. [facility] Medical History Morbid obesity Type 2 diabetes mellitus with unspecified complications Essential hypertension Nonischemic cardiomyopathy Typical atrial flutter Hyperparathyroidism CLAUDIA (obstructive sleep apnea) Vitamin D deficiency Diabetic nephropathy associated with type 2 diabetes mellitus [facility] (current) use of insulin Hypertension Dyslipidemia Obesity Diabetes type 2, uncontrolled Paroxysmal A-fib Surgical History History of radiofrequency ablation procedure for cardiac arrhythmia Hx of colonoscopy Family History Father Cancer Diabetes CVD (cardiovascular disease) Mother Diabetes Social History Household Members: None Household Members Other:: Alcohol intake: never Patient Tobacco Use Status: Former Tobacco user Substance Use Type: Crack/Cocaine and Marijuana Current occupational status: disabled Current occupation: left handed Review of Systems Const Denies chills, Denies fatigue, Denies fever(s), Denies frequent falls, Denies weakness, Denies weight gain and Denies weight loss ENT Denies dizziness Card Denies chest pain, Denies chest pain with activity, Denies syncope, Denies rapid heart rate, Denies pedal edema, Denies irregular heart rhythm, Denies leg edema, Denies lightheadedness, Denies palpitations, Denies dyspnea, Denies dyspnea on exertion, Denies orthopnea and Denies other (LOC) Resp Denies cough, Denies dyspnea and Denies dyspnea on exertion GI Denies hematochezia and Denies change in bowel habits Musc Denies abnormal gait, Denies arthralgias, Denies muscle weakness, Denies numbness, Denies radiating pain into limb and Denies tingling Neuro Denies abnormal gait, Denies dizziness, Denies syncope, Denies frequent falls, Denies numbness, Denies tingling and Denies weakness Endo Denies fatigue and Denies palpitations Physical Exam Const General: healthy appearing and no acute distress Orientation/consciousness: patient oriented x3 HEENT Other: Unremarkable Head: Yes normal to inspection Eyes General: appearance normal, both eyes and all related structures Neck Neck: Yes normal visual inspection Chest Chest palpation & inspection: normal inspection of the chest Resp Effort & Inspection: normal respiratory effort Auscultation: clear to auscultation bilaterally Cardio Jugular venous distension: no JVD Palpation: normal PMI Rate: regular rate Rhythm: regular rhythm Heart sounds: S1 normal heart sound present, S2 normal heart sound present, no click, no gallops, no murmurs and no rubs GI Inspection: Yes normal to inspection Palpation (GI): Soft to palpation Back/Spine/Pelvis Other: unremarkable Skin General skin exam: no rashes or lesions noted Neuro General: patient oriented x3 Extrem General: Yes normal to inspection Psych Appearance: grossly normal Mental Status: mental status grossly normal Office Procedures EKG Details: EKG today. Normal Sinus Rhytm. Rate 88 bpm. QTc 469ms. NV 186ms. [id number], Complete Assessment & Plan Assessment & Plan (1) Persistent atrial fibrillation: Code(s): I48.19 - Other persistent atrial fibrillation Plan: Retstarted on Sotalol in 08/[address] Felton. (2) Type 2 diabetes mellitus with unspecified complications: Code(s): E11.8 - Type 2 diabetes mellitus with unspecified complications Plan: Sees endocrinology. discussed the importance of blood glucose control. (3) Essential hypertension: Code(s): I10 - Essential (primary) hypertension (4) Nonischemic cardiomyopathy: Code(s): I42.8 - Other cardiomyopathies (5) Dyslipidemia: Code(s): E78.5 - Hyperlipidemia, unspecified (6) Obesity: Code(s): E66.9 - Obesity, unspecified (7) CLAUDIA (obstructive sleep apnea): Code(s): G47.33 - Obstructive sleep apnea (adult) (pediatric) Plan Blood pressure within goal today. He is going to talk to sleep medicine in regard to his CLAUDIA and possible alternatives to CPAP. Discussed how it will improve the strain on his body. Discussed in detail healthy diet and salt avoidance. Continue to work on weight loss. Continue medications. Return in [address] Marcelino. Coding Level of Care Code Est Pt Level 4 (31629) Diagnoses Persistent atrial fibrillation I48.19 Type 2 diabetes mellitus with unspecified complications E11.8 Essential hypertension I10 Nonischemic cardiomyopathy I42.8 Dyslipidemia E78.5 Obesity E66.9 CLAUDIA (obstructive sleep apnea) G47.33 CPT Codes EKG - CPT: [id number], Complete ([id number])
[2023-01-06 14:13] VITALS: BP 122/64; PULSE 88; BMI 36.0
== END 2023-01-06 14:40 | disposition home or self-care (01) ==
PROVIDERS: PCP Family Medicine; Visit Provider Nurse Practitioner
DX: I48.19 Other persistent atrial fibrillation (principal); E11.8 Type 2 diabetes mellitus with unspecified complications; I10 Essential (primary) hypertension; I42.8 Other cardiomyopathies; E78.5 Hyperlipidemia, unspecified; E66.9 Obesity, unspecified; G47.33 Obstructive sleep apnea (adult) (pediatric)
CPT/HCPCS: 93010; 99214

== ENCOUNTER → 2023-01-06 13:20 | Outpatient (BNVA) | payer OTHER, SELFPAY | PROVIDERS: PCP Family Medicine; Visit Provider Nurse Practitioner | DX: I48.19 Other persistent atrial fibrillation (principal); I10 Essential (primary) hypertension; I42.8 Other cardiomyopathies; E78.5 Hyperlipidemia, unspecified; E11.8 Type 2 diabetes mellitus with unspecified complications; G47.33 Obstructive sleep apnea (adult) (pediatric); E66.9 Obesity, unspecified; Z68.36 Body mass index [BMI] 36.0-36.9, adult | CPT/HCPCS: 93005; 99212 ==

== ENCOUNTER 2023-01-26 12:36 | Outpatient (REF) | payer OTHER, SELFPAY ==
--- NOTE | ~2023-01-26 | XR_ITS ---
EXAMINATION: XR ELBOW, RIGHT CLINICAL INFORMATION: Elbow pain COMPARISON: None available. TECHNIQUE: AP, lateral, and oblique views of the right elbow. FINDINGS: Minimal areas of dystrophic calcification are seen lateral left condyle and medial condylar region but it do not see evidence of an acute fracture, dislocation or destructive lesion or effusion. Spurring off the posterior coronoid at the insertion of the triceps tendon is noted. XR/XR elbow RT min 3V IMPRESSION: Degenerative spurring as described.
--- NOTE | ~2023-01-26 | XR_ITS ---
EXAMINATION: XR ELBOW, LEFT CLINICAL INFORMATION: Elbow pain COMPARISON: None available. TECHNIQUE: AP, lateral, and oblique views of the left elbow. FINDINGS: Mild spurring off the coronoid is noted. No fracture, dislocation or destructive lesion or erosive change. The radial head is intact. XR/XR elbow LT min 3V IMPRESSION: Minimal degenerative spurring.
== END 2023-01-26 12:37 | disposition home or self-care (01) ==
LOC: HO.HHCX 12:36
PROVIDERS: Visit Provider Family Medicine
DX: M25.521 Pain in right elbow (principal); M25.522 Pain in left elbow
CPT/HCPCS: 73080

== ENCOUNTER 2023-05-06 18:02 | Emergency (ER) | payer OTHER, SELFPAY ==
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
[2023-05-06 18:06] VITALS: BP 104/63; PULSE 96; RESP 18; TEMP 36.8; O2SAT 96; BMI 36.3
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
[2023-05-06 20:30] VITALS: BP 131/89; PULSE 94; RESP 16; TEMP 36.6; O2SAT 98
== END 2023-05-06 20:41 | disposition home or self-care (01) ==
PROVIDERS: Emergency Provider Emergency Medicine; PCP Family Medicine
DX: Z04.1 Encounter for examination and observation following transport accident (principal); R51.9 Headache, unspecified; M54.2 Cervicalgia; R07.9 Chest pain, unspecified; I10 Essential (primary) hypertension; E11.9 Type 2 diabetes mellitus without complications; I48.0 Paroxysmal atrial fibrillation; Z79.01 Long term (current) use of anticoagulants
CPT/HCPCS: 70450; 71250; 72125; 99284

== ENCOUNTER 2023-05-11 10:05 | Emergency (ER) | payer OTHER, SELFPAY ==
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
--- NOTE | ~2023-05-11 | MR_ITS ---
EXAMINATION: MR LUMBAR SPINE WITHOUT CONTRAST CLINICAL INFORMATION: Low back pain with saddle anesthesia intermittently. Lower extremity weakness. Difficulty walking. COMPARISON: X-ray lumbar spine dated 05/11/2023. TECHNIQUE: Multiplanar, multisequence imaging was obtained. FINDINGS: VERTEBRAL BODIES AND PARASPINAL STRUCTURES: The L1 vertebra has articulating transverse processes. The S1 vertebra is transitional and partially lumbarized with a developed S1-S2 disc space. Counting was performed utilizing prior imaging from the cervical thoracic levels to the lumbar level. There is a mild posterior subluxation and reduced intradiscal signal at the L5-S1 level. [id number] loss of disc height with disc degeneration evident at the L3-L4 and L4-L5 levels with minimal posterior subluxations. There is congenital narrowing of the spinal canal most notably from the L4 through the S1 levels with foreshortening of the pedicles. Additional mild epidural fat prominence contributes to varying degrees of thecal sac distortion. The paraspinal soft tissues are unremarkable. There are moderate to severe degenerative changes of the left sacroiliac joint. CONUS MEDULLARIS AND CAUDA EQUINA: The distal cord, conus tip, and cauda equina nerve roots appear normal. SPINAL LEVELS: L1-L2: Anterior disc bulge and endplate spurring. No central canal stenosis or foraminal narrowing. L2-L3: Mild generalized disc bulge and facet arthropathy without central canal stenosis or foraminal encroachment. L3-L4: Reduced intradiscal signal and mild loss of disc height with a slight retrosubluxation. Generalized disc bulge present with mild facet arthropathy and thickening of the ligamentum flavum resulting in moderate central canal stenosis with moderate to severe thecal sac distortion. Bulging disc also mildly to moderately encroaches upon the neural foramina. L4-L5: Posterior subluxation and diffuse generalized disc bulge with moderate facet arthropathy and thickening of the ligamentum flavum resulting in severe central canal stenosis with thecal sac compression. Additional mass effect upon the L5 nerve roots in the subarticular zones. Bulging disc with moderate to severe foraminal encroachment and distortion of the exiting L4 nerve roots. L5-S1: Posterior subluxation and broad-based disc bulge with moderate facet arthropathy and thickening of the ligamentum flavum resulting in severe central canal stenosis and thecal sac compression. Posterior annular fissure noted as well. Severe bilateral foraminal narrowing with bulging disc and osseous spurring impressing upon the exiting L5 nerve roots bilaterally. S1-S2: Very mild disc bulge and moderate facet arthropathy mildly encroaching upon the subarticular zones. Mild bilateral foraminal narrowing. MR/MR lumbar spine wo con IMPRESSION: 1. 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 If future surgery or a percutaneous procedure is contemplated, recommend correlation with plain film evaluation in order to ensure correct enumeration. 2. Moderate central canal stenosis due to spondylosis at the L3-L4 level with moderate to severe thecal sac distortion. 3. Posterior subluxation and disc bulge with facet arthropathy at the L4-L5 level resulting in severe central canal stenosis and thecal sac compression. Mass effect upon the L5 nerve roots in the subarticular zones. Moderate to severe foraminal narrowing with distortion of the exiting L4 nerve roots. 4. Posterior subluxation and disc bulge with facet arthropathy at the L5-S1 level resulting in severe central canal stenosis and thecal sac compression. Severe foraminal narrowing with bulging disc and osseous spurring impressing upon the exiting L5 nerve roots bilaterally.
--- NOTE | ~2023-05-11 | XR_ITS ---
EXAMINATION: XR LUMBOSACRAL SPINE CLINICAL INFORMATION: Low back pain. COMPARISON: Radiograph lumbar spine 10/28/2021. CT abdomen/pelvis 03/17/2022. TECHNIQUE: Three views of the lumbosacral spine. FINDINGS: No evidence of acute compression deformity or traumatic subluxation. Mild to moderate intervertebral disc height loss at L3-L4 and L4-L5. Large multilevel anterior and lateral osteophytes. Moderate facet arthropathy from L3 through S1 leading to some degree of neural foraminal osseous encroachment. Symmetric SI joints. No significant paraspinal soft tissue abnormality. XR/XR lumbar spine 2-3V IMPRESSION: 1. No acute compression deformity or malalignment. 2. Moderate degenerative changes leading to some degree of neural foraminal osseous encroachment from L3 through S1. Further evaluation with an MRI of the lumbar spine as clinically warranted.
[2023-05-11 10:47] VITALS: BP 124/77; PULSE 91; RESP 20; TEMP 37; O2SAT 98; BMI 33.9
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
[2023-05-11 14:46] VITALS: BP 90/58; PULSE 82; RESP 12; TEMP 36.3; O2SAT 96
[2023-05-11 17:24] VITALS: BP 111/67; PULSE 88; RESP 20; TEMP 36.7; O2SAT 95
--- NOTE | 2023-05-11 17:38 | PC.NURSE ---
Patient wanted to leave as he was hungry and a diabetic, we fed him a sandwich and diet esa aleks ; this was approx 1400
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
== END 2023-05-11 17:30 | disposition short-term general hospital (02) ==
PROVIDERS: Emergency Provider Emergency Medicine; PCP Family Medicine
DX: S34.105A Unspecified injury to L5 level of lumbar spinal cord, initial encounter (principal); R51.9 Headache, unspecified; M54.2 Cervicalgia; V89.2XXA Person injured in unspecified motor-vehicle accident, traffic, initial encounter; Y93.9 Activity, unspecified; Y92.411 Interstate highway as the place of occurrence of the external cause; Y99.9 Unspecified external cause status
CPT/HCPCS: 70450; 72100; 72125; 72148; 99285

== ENCOUNTER 2023-10-18 14:25 | Outpatient (AMB) | payer OTHER, SELFPAY ==
--- NOTE | 2023-10-18 14:32 | A.OFFVIS_ITS ---
Vital Signs 10/18/23 14:36 Height 6 ft Weight 231 lb 7.766 oz BMI 31.4 BP 116/78 Blood Pressure Location Rt brachial Pulse 86 Pulse Source Pulse Oximeter Intake Visit Reasons: T2DM/CONFIRMED Intake Note: Patient presents today to re-establish treatment for Type 2 Diabetes Mellitus: Last Diabetic eye exam was on: DUE Last Podiatry exam was on: Does not see a Pellet Post Inspector Most recent HbA1c: DUE Random Glucose- 210mg/dL, Today [employer]dnance [employer] Officer Required: No Accompanied by: Self / Same As Patient Allergies Penicillins [PENICILLINS] Allergy (Unknown, Verified 10/18/23 14:32) UNKNOWN metformin Adverse Reaction (Unknown, Verified 10/18/23 14:32) diarrhea HPI Comments Details: Patient is 58-year-old male with pmhx of DM type 2 diagnosed 2006 who presents for management of diabetes. He was last seen by Dr. Warner 11/2022. Past medical history: AFIB, CHF, obesity, dyslipidemia, HTN, CLAUDIA on BIPAP, h/o low Vit D, depression, OA.. Micro and macrovascular complications: Nephropathy and neuropathy Diabetes medications: Humulin U 500 80 units twice daily,, Trulicity 4.5 mg per week, Jardiance 25 mg daily. Patient previously intolerant to metformin. Intolerant of Jardiance due to yeast infection. Actos was stopped few years ago- he has mild decreased ejection fraction. Blood glucose monitoring: We were unable to download his Dexcom G7 today. Susannah viewed on phone: Average glucose 219 GMI 8.5% 30% in range, 38% high, 31% very high, <1% low, 0% very low Hemoglobin a1c 9.6% today. Hypoglycemia: one low over 3 month's ago in the 40s Medical Officer Psychiatry - CDE education: in past Pellet Post Inspector: long-no Ophthalmology evaluation: within 6 months- no retinopathy. History of cataracts. Diet: Breakfast-fruits, bagel with cream cheese, coffee Lunch: burrito sometimes and sometimes brian soda Dinner-rice with protein and water Snacks/desserts: He's been eating a pack of alva and ikes every few days. Sometimes chips or club crackers. Exercise: none Hypoglycemia symptoms: none in the past three months Hyperglycemia symptoms: none Hypertension: treated with Lisinopril. He is also on Sotalol. Hyperlipidemia: treated with Zetia and Atorvastatin. No recent lipid profile on file. ROS: Constitutional: No unexplained weight loss, fever or chills. Eyes: No vision changes Respiratory: No shortness of breath Cardiovascular: No chest pain Gastrointestinal: No anorexia, nausea, vomiting or diarrhea. No abdominal pain or blood in stool. Neurologic: No headache, dizziness, syncope Endocrine: No cold or heat intolerance. No polyuria or polydipsia. Physical exam: Constitutional: Alert, in no distress. Eyes: Pupils are equal, round and reactive to light. Extraocular muscles intact. Neck: Supple, Full range of motion. No lymphadenopathy. Respiratory: Clear to auscultation. Cardiovascular: S1 S2 regular. No murmurs. Neurologic: No focal neurological deficits. Right foot: Warm and well perfused. No clubbing, cyanosis or edema. DP pulse 3+. Decreased vibratory sensation. Intact sensation to monofilament. Left foot: Warm and well perfused. No clubbing, cyanosis or edema. DP pulse 3+. Decreased vibratory sensation. Decreased sensation to monofilament. [facility] Medical History Morbid obesity Type 2 diabetes mellitus with unspecified complications Essential hypertension Nonischemic cardiomyopathy Typical atrial flutter Hyperparathyroidism CLAUDIA (obstructive sleep apnea) Vitamin D deficiency Diabetic nephropathy associated with type 2 diabetes mellitus jail (current) use of insulin Hypertension Dyslipidemia Obesity Diabetes type 2, uncontrolled Paroxysmal A-fib Surgical History History of radiofrequency ablation procedure for cardiac arrhythmia Hx of colonoscopy Family History Father Cancer Diabetes CVD (cardiovascular disease) Mother Diabetes Social History Household Members: None Household Members Other:: Alcohol intake: never Patient Tobacco Use Status: Former Tobacco user Substance Use Type: Crack/Cocaine and Marijuana Current occupational status: disabled Current occupation: left handed Physical Exam Vital Signs: Last Vital Signs Pulse 86 10/18/23 14:36 BP 116/78 10/18/23 14:36 BMI result Body Mass Index 31.4 Results AMB Hemoglobin A1c AMB Hemoglobin A1c 9.6 % Last Edit by ANGIE Pollard on 10/18/23 14:51 Results Reviewed Results Reviewed: Laboratory Last Values Glucose (Clinic) 210 mg/dL (60-115) H 10/18/23 14:42 Hgb A1c (Clinic) 9.6 % (4.0-6.0) H 10/18/23 14:45 Assessment & Plan Assessment & Plan (1) Diabetes type 2, uncontrolled: Code(s): E11.65 - Type 2 diabetes mellitus with hyperglycemia Category: Medical Qualifiers: Glycemic state: with hyperglycemia Qualified Code(s): E11.65 - Type 2 diabetes mellitus with hyperglycemia (2) Hypertension: Code(s): I10 - Essential (primary) hypertension Category: Medical Qualifiers: Hypertension type: primary hypertension Qualified Code(s): I10 - Essential (primary) hypertension (3) Dyslipidemia: Code(s): E78.5 - Hyperlipidemia, unspecified Category: Medical Plan In this is a 58 year old male with uncontrolled type II DM. Unable to adjust regimen at this time due to lack of data. Patient will meet with DE regarding dexcom. Discussed changing Trulicity to Mounjaro, and he would be willing to try this. Revisited Dr. Warner's thoughts on using insulin pump, but he is very hesitant about this. He can discuss further with DE. We can meet again to review CGM data after he sees DE. Will set routine follow up today. Advised to have fasting lab work completed. Continue current medications. Emphasized diet changes with the patient. He needs to stop eating candies which undoubtedly have increased his hemoglobin A1c since last time. He agrees. He should also start incorporating exercise regularly. Orders: Orders AMB Hemoglobin A1c Today E11.8 - Type 2 diabetes mellitus with unspecified complications Lipid Panel Today E11.8 - Type 2 diabetes mellitus with unspecified complications Creatinine Today E11.8 - Type 2 diabetes mellitus with unspecified complications Microalbumin, Random (w Creat) Today E11.8 - Type 2 diabetes mellitus with unspecified complications Coding Level of Care Code Est Pt Level 5 (31787) Complex EM visit Add On G2211 Diagnoses Uncontrolled type 2 diabetes mellitus with hyperglycemia E11.65 Glycemic state: with hyperglycemia Primary hypertension I10 Hypertension type: primary hypertension Dyslipidemia E78.5 Time Spent (min) 50 Comment reviewing chart, completing documentation, seeing the patient, diabetic education
[2023-10-18 14:36] VITALS: BP 116/78; PULSE 86; BMI 31.4
[2023-10-18 14:46] LABS: Glucose, Whole Blood 210 mg/dL (60-115)
== END 2023-10-18 15:45 | disposition home or self-care (01) ==
PROVIDERS: PCP Family Medicine; Visit Provider Physician Assistant Medical
DX: E11.65 Type 2 diabetes mellitus with hyperglycemia (principal); I10 Essential (primary) hypertension; E78.5 Hyperlipidemia, unspecified; E11.8 Type 2 diabetes mellitus with unspecified complications
CPT/HCPCS: 99215; G2211

== ENCOUNTER → 2023-10-18 14:25 | Outpatient (BNVA) | payer OTHER, SELFPAY | PROVIDERS: PCP Family Medicine; Visit Provider Physician Assistant Medical | DX: E11.65 Type 2 diabetes mellitus with hyperglycemia (principal); I10 Essential (primary) hypertension; E78.5 Hyperlipidemia, unspecified | CPT/HCPCS: 82947; 83036; 99212 ==

== ENCOUNTER → 2023-10-27 15:24 | Outpatient (BNVA) | payer OTHER, SELFPAY | PROVIDERS: PCP Family Medicine; Visit Provider Nurse Practitioner Family | DX: R39.14 Feeling of incomplete bladder emptying (principal); R35.1 Nocturia; R39.9 Unspecified symptoms and signs involving the genitourinary system; Z80.42 Family history of malignant neoplasm of prostate | CPT/HCPCS: 81003; 99202 ==

== ENCOUNTER 2023-10-27 15:30 | Outpatient (AMB) | payer OTHER, SELFPAY ==
--- NOTE | 2023-10-27 15:28 | MHC.OFFVIS ---
Intake Visit Reasons: urinary incontinence/urinary hesitancy Intake Note: New Patient presents for initial visit for urinary hesitancy and frequency Urology Medications: none Blood Thinner: none PVR: 36ml's Director Of Global Sales Required: No Accompanied by: wilma Allergies Penicillins [PENICILLINS] Allergy (Unknown, Verified 10/27/23 19:44) UNKNOWN metformin Adverse Reaction (Unknown, Verified 10/27/23 19:44) diarrhea Medication List - Last Reconciled 10/27/23 by SHU Smith atorvastatin 80 mg PO BEDTIME baclofen 10 mg PO BEDTIME PRN bisacodyl (Dulcolax (bisacodyl)) 20 mg (4 x 5 mg) PO ONCE 1 day cholecalciferol (vitamin D3) (Vitamin D3) 50 mcg PO QAM cyclobenzaprine 5 mg PO TID PRN 7 days dabigatran etexilate (Pradaxa) 150 mg PO BID divalproex 1,000 mg PO BEDTIME dulaglutide (Trulicity) 4.5 mg (0.5 mL) subcut QWEEK empagliflozin (Jardiance) 25 mg PO QAM ezetimibe 10 mg PO QAM fluticasone propionate 50 mcg/actuation 1 spray intranasal DAILY insulin regular hum U-500 conc (Humulin R U-500 (Conc) Insulin Kwikpen) 80 units (0.16 mL) subcut TID lancets (TRUEplus Lancets) TEST BLOOD SUGAR SIX TIMES DAILY DIRECTED lisinopril 5 mg PO DAILY 90 days melatonin 1 tab PO BEDTIME PRN omeprazole 40 mg PO QAM PRN primidone 50 mg PO BID simethicone (Gas Relief (simethicone)) 125 mg PO ONCE sotalol 120 mg PO BID sotalol mg PO tamsulosin 0.4 mg PO BEDTIME 30 days HPI Comments Details: Abraham is a pleasant 58 year old male patient who was accompanied by his granddaughter at today's office visit. He has a past medical history of obesity, type 2 diabetes, hypertension, nonischemic cardiomyopathy, atrial flutter, hyperparathyroidism, obstructive sleep apnea, vitamin-D deficiency, dyslipidemia, and paroxysmal AFib. He presents to the office today as a new patient for ongoing lower urinary tract symptoms he has been experiencing. In discussion with the patient today he reports noting over the last 2-3 years to be having issues with urinary frequency, nocturia, and feeling of incomplete bladder emptying. We discussed at length potential causes of these lower urinary tract symptoms he is experiencing. He discusses his concern for potential prostate cancer as he has a family history of prostate cancer. He reports his father had prostate cancer. In review of patient's chart it appears PSA 10/27 0.5. A1C 10/28 9.6. We discussed at length importance of managing diabetes for improvement lower urinary tract symptoms as well as overall health and well-being. We also discussed correlation of sleep apnea and nocturia. In office urinalysis results reviewed with the patient today. PVR 36 mL. When asked he denies hematuria, dysuria, foul smelling urine, changes to urinary stream, flank pain, fever, and or chills. He otherwise offers no other issues or concerns at this time. [facility] Medical History Morbid obesity Type 2 diabetes mellitus with unspecified complications Essential hypertension Nonischemic cardiomyopathy Typical atrial flutter Hyperparathyroidism CLAUDIA (obstructive sleep apnea) Vitamin D deficiency Diabetic nephropathy associated with type 2 diabetes mellitus insole lip turner (current) use of insulin Hypertension Dyslipidemia Obesity Diabetes type 2, uncontrolled Paroxysmal A-fib Surgical History History of radiofrequency ablation procedure for cardiac arrhythmia Hx of colonoscopy Family History Father Cancer Diabetes CVD (cardiovascular disease) Mother Diabetes Social History Household Members: None Household Members Other:: Alcohol intake: never Patient Tobacco Use Status: Former Tobacco user Substance Use Type: Crack/Cocaine and Marijuana Current occupational status: disabled Current occupation: left handed Review of Systems Const Reports no additional complaints Eyes Reports no additional complaints ENT Reports no additional complaints Card Reports as per HPI Resp Reports as per HPI GI Reports as per HPI Reports as per HPI Musc Reports no additional complaints Neuro Reports no additional complaints Psych Reports no additional complaints Endo Reports as per HPI Nelson/Lymph Reports no additional complaints Aller/Immun Reports no additional complaints Physical Exam Const General: cooperative, comfortable, no acute distress, well developed, alert and awake Nutritional Appearance: overweight Orientation/consciousness: patient oriented x3 Limitations: no limitations HEENT Head: Yes normal to inspection, Yes normocephalic and Yes atraumatic Ears: hearing grossly normal bilaterally Eyes General: appearance normal, both eyes and all related structures Neck Neck: Yes normal visual inspection and Yes trachea midline Chest Chest palpation & inspection: normal inspection of the chest Resp Effort & Inspection: normal respiratory effort and able to speak in complete sentences Cardio Rate: regular rate GI Inspection: Yes normal to inspection General: Yes no CVA tenderness Back/Spine/Pelvis Back: no CVA tenderness Skin General skin exam: no rashes or lesions noted Neuro General: patient oriented x3 Extrem General: Yes normal to inspection Psych Appearance: grossly normal and well kempt Mental Status: mental status grossly normal Speech and movement: Normal speech and movement present and Clear speech present Affect: normal affect Attitude: cooperative Thought process: Normal thought process present Thought content: Normal thought content present Insight: Fair insight present (Psych) Judgement: Fair judgement present (Psych) Results AMB Urinalysis, Automated UA Leukoctes 0 Zuleika/uL Last Edit by [employer] on 10/27/23 15:53 UA Nitrite Last Edit by [employer] on 10/27/23 15:53 UA Urobilinogen 0.2 mg/dL Last Edit by [employer] on 10/27/23 15:53 UA Protein 0 mg/dL Last Edit by [employer] on 10/27/23 15:53 UA pH 6.0 Last Edit by [employer] on 10/27/23 15:53 UA Blood 0 Will/uL Last Edit by [employer] on 10/27/23 15:53 UA Specific [place] 1.010 Last Edit by [employer] on 10/27/23 15:53 UA Ketone Positive Last Edit by [employer] on 10/27/23 15:53 UA Bilirubin 0 mg/dL Last Edit by [employer] on 10/27/23 15:53 UA Glucose 1000 mg/dL Last Edit by [employer] on 10/27/23 15:53 Results Reviewed Results Reviewed: Laboratory Last Values Urine pH (Auto) 6.0 10/27/23 15:52 Specific [place] (Auto) 1.010 08/22/24 15:52 Urine Protein (Auto) 0 mg/dL 10/27/23 15:52 Glucose (UA)(Auto) 1000 mg/dL 10/27/23 15:52 Urine Ketones (Auto) Positive 10/27/23 15:52 Urine Blood (Auto) 0 Will/uL 10/27/23 15:52 Urine Bilirubin (Auto) 0 mg/dL 10/27/23 15:52 Urine Urobilinogen (Auto) 0.2 mg/dL 10/27/23 15:52 Leukocyte Esterase (Auto) 0 [place]ule[place]/uL 10/27/23 15:52 Assessment & Plan Assessment & Plan (1) Feeling of incomplete bladder emptying: Code(s): R39.14 - Feeling of incomplete bladder emptying Category: Medical (2) Family history of prostate cancer: Code(s): Z80.42 - Family history of malignant neoplasm of prostate Category: Medical (3) Nocturia: Code(s): R35.1 - Nocturia Category: Medical (4) Lower urinary tract symptoms: Code(s): R39.9 - Unspecified symptoms and signs involving the genitourinary system Category: Medical Plan In office urinalysis results reviewed with the patient today; as noted above. PVR 36 mLs Discussed at length potential causes for lower urinary tract symptoms patient is experiencing. Discussed importance of managing diabetes for improvement of lower urinary tract symptoms as well as overall health and well-being. Discussed correlation of lower urinary tract symptoms and sleep apnea. Will obtain retroperitoneal ultrasound for further assessment evaluation. Will obtain PSA for further assessment evaluation. Discussed lifestyle modifications to assist with lower urinary tract symptoms patient is experiencing. Discussed bladder triggers/irritants. Start Flomax as discussed and prescribed. Follow-up in 1-3 months with labs and imaging to be completed prior; or sooner with any issues, concerns, and or questions. Orders: Orders AMB Urinalysis Automated Today Z13.9 - Encounter for screening, unspecified US retroperitoneal comp Today R39.14 - Feeling of incomplete bladder emptying Prostate Specific Antigen Today Z80.42 - Family history of malignant neoplasm of prostate Medications: New tamsulosin 0.4 mg PO BEDTIME 30 days 30 caps 2RF N40.1 - Benign prostatic hyperplasia with lower urinary tract symptoms, R35.1 - Nocturia Discontinued peg 3350-electrolytes 236-22.74-6.74 -5.86 gram Refer to prep instructions given/ mailed to you from GI OFFICE. until fecal effluent is clear Discontinued Reason: Doctor's Order 240 mL PO Q10M 4,000 mL 0RF Patient Instructions: The patient had an opportunity to ask questions regarding the treatment plan. All questions were answered. Physical exam, labs, and imaging were discussed and reviewed in detail. As well as risks, benefits, and discussion of treatment choices. No major barriers to understanding were identified. The patient expressed understanding and agreement with the above treatment plan. The patient was made aware they should contact our office by phone for worsening of their current condition, the appearance of new symptoms, or with any questions or concerns. Compliance is encouraged with any medications and follow up testing that is ordered. It is a privilege to be allowed the opportunity to participate in? your urological care.? Again, if you have any questions or concerns If you have any questions or concerns please do not hesitate to contact me. The office is [phone]. This note is constructed using voice recognition software. While every effort has been made to ensure accuracy director operating room errors may have been included. Yours sincerely, SHU Smith Coding Level of Care Code New Pt Level 4 (22550) Diagnoses Feeling of incomplete bladder emptying R39.14 Family history of prostate cancer Z80.42 Nocturia R35.1 Lower urinary tract symptoms R39.9
== END 2023-10-27 16:07 | disposition home or self-care (01) ==
PROVIDERS: PCP Family Medicine; Visit Provider Nurse Practitioner Family
DX: R39.14 Feeling of incomplete bladder emptying (principal); Z80.42 Family history of malignant neoplasm of prostate; R35.1 Nocturia; R39.9 Unspecified symptoms and signs involving the genitourinary system; Z13.9 Encounter for screening, unspecified
CPT/HCPCS: 99204

== ENCOUNTER 2023-11-03 14:02 | Outpatient (AMB) | payer OTHER, SELFPAY ==
--- NOTE | 2023-11-03 14:34 | MHC.AMDMED ---
Intake Intake Visit Reasons: DM/CONFIRMED Marketing Services Manager Required: No Accompanied by: Daughter Allergies Penicillins [PENICILLINS] Allergy (Unknown, Verified 10/27/23 19:44) UNKNOWN metformin Adverse Reaction (Unknown, Verified 10/27/23 19:44) diarrhea HPI Comprehensive Diabetes Asmnt Most Recent Diabetes Results: No Data to Display [facility] Medical History Morbid obesity Type 2 diabetes mellitus with unspecified complications Essential hypertension Nonischemic cardiomyopathy Typical atrial flutter Hyperparathyroidism CLAUDIA (obstructive sleep apnea) Vitamin D deficiency Diabetic nephropathy associated with type 2 diabetes mellitus jail (current) use of insulin Hypertension Dyslipidemia Obesity Diabetes type 2, uncontrolled Paroxysmal A-fib Surgical History History of radiofrequency ablation procedure for cardiac arrhythmia Hx of colonoscopy Family History Father Cancer Diabetes CVD (cardiovascular disease) Mother Diabetes Social History Household Members: None Household Members Other:: Alcohol intake: never Patient Tobacco Use Status: Former Tobacco user Substance Use Type: Crack/Cocaine and Marijuana Current occupational status: disabled Current occupation: left handed Assessment & Plan Assessment & Plan (1) Type 2 diabetes mellitus with unspecified complications: Code(s): E11.8 - Type 2 diabetes mellitus with unspecified complications Plan: Personal Continuous Glucose Monitor: We were unable to review data in Dexcom clarity because patient had forgotten user name and password User name:[phone](do not log in under mobile log in under user) Patient needed to leave appointment to go clam picker his grandson, he will come back we will reset the password so we can reconnect Dexcom clarity Patient able to insert sensor independently at home without issue.? Portions of this note were created using voice recognition software, please excuse any words or phrases that may have been misinterpreted. Coding Level of Care Code Est Pt Level 1 (60119) Diagnoses Type 2 diabetes mellitus with unspecified complications E11.8
== END 2023-11-03 14:36 | disposition home or self-care (01) ==
PROVIDERS: PCP Family Medicine; Visit Provider Registered Nurse Diabetes Educator
DX: E11.8 Type 2 diabetes mellitus with unspecified complications (principal)

== ENCOUNTER → 2023-11-03 14:02 | Outpatient (BNVA) | payer OTHER, SELFPAY | PROVIDERS: PCP Family Medicine; Visit Provider Registered Nurse Diabetes Educator | DX: E11.8 Type 2 diabetes mellitus with unspecified complications (principal) | CPT/HCPCS: 99211 ==

== ENCOUNTER 2023-11-28 07:32 | Outpatient (REF) | payer OTHER, SELFPAY ==
--- NOTE | ~2023-11-28 | US_ITS ---
EXAMINATION: US RETROPERITONEAL COMPLETE (RENAL) CLINICAL INFORMATION: Feeling of incomplete bladder emptying. COMPARISON: CT abdomen and pelvis 03/17/2022. TECHNIQUE: Real-time imaging of the kidneys and bladder. FINDINGS: RIGHT KIDNEY: 12.8 x 6.3 x 6.4 cm (SAG x AP x TRV). The kidney is normal in size, contour, and echogenicity. Renal cortical thickness is normal. No calculi or focal parenchymal lesions. No hydronephrosis. LEFT KIDNEY: 12.1 x 5.2 x 4.7 cm (SAG x AP x TRV). The kidney is normal in size, contour, and echogenicity. Renal cortical thickness is normal. No calculi or focal parenchymal lesions. No hydronephrosis. BLADDER: Well distended and normal. Left ureteral jet is demonstrated; right is not. Prevoid bladder volume is 339 mL. Postvoid bladder volume is 10.4 mL. US/US retroperitoneal comp IMPRESSION: Unremarkable renal ultrasound. Electronically signed by: Isis Benz MD 12/01/2023 06:00 PM EDT
== END 2023-11-28 07:33 | disposition home or self-care (01) ==
LOC: HO.US 07:32
PROVIDERS: PCP Family Medicine; Visit Provider Nurse Practitioner Family
DX: R39.14 Feeling of incomplete bladder emptying (principal)
CPT/HCPCS: 76770

== ENCOUNTER 2023-12-07 07:53 | Outpatient (REF) | payer OTHER, SELFPAY ==
[2023-12-07 09:27] LABS: Estimated Glomerular Filt Rate > 60; Uric Acid 3.2 mg/dL (3.4-7.0)
[2023-12-07 09:48] LABS: Prostate Specific Antigen 0.57 ng/mL (<0.05-4.0)
[2023-12-07 10:28] LABS: Creatinine Urine 65.99 mg/dL; Microalbumin Urine < 5.0 mg/L
== END 2023-12-07 07:54 | disposition home or self-care (01) ==
LOC: HO.LAB 07:53
PROVIDERS: Absent Provider Nurse Practitioner Family; PCP Family Medicine; Referring Provider Family Medicine; Visit Provider Physician Assistant Medical
DX: Z01.810 Encounter for preprocedural cardiovascular examination (principal); I42.8 Other cardiomyopathies; I10 Essential (primary) hypertension; I48.19 Other persistent atrial fibrillation; E11.8 Type 2 diabetes mellitus with unspecified complications; M79.671 Pain in right foot; M79.672 Pain in left foot; Z80.42 Family history of malignant neoplasm of prostate; Z12.5 Encounter for screening for malignant neoplasm of prostate
CPT/HCPCS: 36415; 82043; 82565; 82570; 84153; 84550; 93005; 99212

== ENCOUNTER 2023-12-07 13:04 | Outpatient (AMB) | payer OTHER, SELFPAY ==
--- NOTE | 2023-12-07 13:55 | A.OFFVIS_ITS ---
Vital Signs 12/07/23 13:59 Height 6 ft Weight 213 lb 13.574 oz BMI 29.0 BP 106/58 L Blood Pressure Location Lt brachial Position Sitting Pulse 93 Pulse Source Monitor Intake Visit Reasons: Colonoscopy Preop Allergies Penicillins [PENICILLINS] Allergy (Unknown, Verified 10/27/23 19:44) UNKNOWN metformin Adverse Reaction (Unknown, Verified 10/27/23 19:44) diarrhea HPI Comments Details: 58-year-old male presents today for a pre-operative clearance appointment. He reports he has been doing overall okay cardiac linares. He does report shortness of breath on exertion and chest pain at rest. The chest pains happens mostly at night and is pressure-like. He reports he has felt a-fib episodes more often but denies any fast heart rates. 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 Hypertension Dyslipidemia Obesity Diabetes type 2, uncontrolled Paroxysmal A-fib Surgical History History of radiofrequency ablation procedure for cardiac arrhythmia Hx of colonoscopy Family History Father Cancer Diabetes CVD (cardiovascular disease) Mother Diabetes Social History Household Members: None Household Members Other:: Alcohol intake: never Patient Tobacco Use Status: Former Tobacco user Substance Use Type: Crack/Cocaine and Marijuana Current occupational status: disabled Current occupation: left handed Physical Exam Vital Signs: Last Vital Signs Pulse 93 12/07/23 13:59 BP 106/58 L 12/07/23 13:59 BMI result Body Mass Index 29.0 Const General: healthy appearing and no acute distress Orientation/consciousness: patient oriented x3 HEENT Head: Yes normal to inspection Eyes General: appearance normal, both eyes and all related structures Neck Neck: Yes normal visual inspection Chest Chest palpation & inspection: normal inspection of the chest Resp Effort & Inspection: normal respiratory effort Auscultation: clear to auscultation bilaterally Cardio Jugular venous distension: no JVD Palpation: normal PMI Rate: regular rate Rhythm: regular rhythm Heart sounds: S1 normal heart sound present, S2 normal heart sound present, no click, no gallops, no murmurs and no rubs GI Inspection: Yes normal to inspection Palpation (GI): Soft to palpation Skin General skin exam: no rashes or lesions noted Neuro General: patient oriented x3 Extrem General: Yes normal to inspection Psych Appearance: grossly normal Office Procedures EKG Details: EKG today. We will sinus rhythm. Rate 93 beats per minute. QRS 86 milliseco nds. QTC 452 milliseconds. AL 192 milliseconds. [id number], Complete Assessment & Plan Assessment & Plan (1) Pre-operative cardiovascular examination: Code(s): Z01.810 - Encounter for preprocedural cardiovascular examination Category: Medical Plan: Preoperative for colonoscopy. Patient reports chest pains and shortness of breath. We will do pharmacological stress test to assess for ischemia. An echocardiogram to assess for any structural changes due to nonischemic cardiomyopathy. (2) Nonischemic cardiomyopathy: Code(s): I42.8 - Other cardiomyopathies Category: Medical Plan: Echocardiogram back in December 2021 showed EF of 50-60%. In March 2021 was as low as 35-40%. Signs of heart failure reviewed. (3) Hypertension: Code(s): I10 - Essential (primary) hypertension Category: Medical Qualifiers: Hypertension type: primary hypertension Qualified Code(s): I10 - Essential (primary) hypertension Plan: Within range. On lisinopril. (4) Persistent atrial fibrillation: Code(s): I48.19 - Other persistent atrial fibrillation Category: Medical Plan: Has persistent atrial fibrillation. In sinus on EKG today. Reports no fast heart rates. On sotalol. He has had an ablation in the past. Plan Signs and symptoms of angina reviewed with patient. ED care if needed. We will follow up after testing. Orders: Orders CA lexiscan stress w cindy 12/07/23 I10 - Essential (primary) hypertension, I42.8 - Other cardiomyopathies, I48.0 - Paroxysmal atrial fibrillation, R07.2 - Precordial pain, Z01.810 - Encounter for preprocedural cardiovascular examination NM cardiolite stress test 12/07/23 I42.8 - Other cardiomyopathies, I48.0 - Paroxysmal atrial fibrillation, Z01.810 - Encounter for preprocedural cardiovascular examination CA echo transthoracic complete 12/07/23 I10 - Essential (primary) hypertension, I42.8 - Other cardiomyopathies, I48.0 - Paroxysmal atrial fibrillation, R07.2 - Precordial pain Coding Level of Care Code Est Pt Level 4 (39075) Diagnoses Pre-operative cardiovascular examination Z01.810 Nonischemic cardiomyopathy I42.8 Primary hypertension I10 Hypertension type: primary hypertension Persistent atrial fibrillation I48.19 CPT Codes EKG - CPT: 69585-[id number], Complete ([id number])
[2023-12-07 13:59] VITALS: BP 106/58; PULSE 93; BMI 29.0
== END 2023-12-07 14:33 | disposition home or self-care (01) ==
PROVIDERS: PCP Family Medicine; Visit Provider Nurse Practitioner
DX: Z01.810 Encounter for preprocedural cardiovascular examination (principal); I42.8 Other cardiomyopathies; I10 Essential (primary) hypertension; I48.19 Other persistent atrial fibrillation
CPT/HCPCS: 93010; 99214

== ENCOUNTER 2023-12-14 13:03 | Outpatient (AMB) | payer OTHER, SELFPAY ==
--- NOTE | 2023-12-14 13:13 | A.OFFVIS_ITS ---
Intake Visit Reasons: 2m/US/PSA(set) Intake Note: Patient presents today for follow up on: Nocturia, incomplete bladder emptying Urology Medications: tamsulosin Blood Thinner: none PVR: 11ml's Mirror Silverer Required: No Accompanied by: Self / Same As Patient Allergies Penicillins [PENICILLINS] Allergy (Unknown, Verified 12/14/23 13:50) UNKNOWN metformin Adverse Reaction (Unknown, Verified 12/14/23 13:50) diarrhea Medication List - Last Reconciled 12/14/23 by SHU Smith atorvastatin 80 mg PO BEDTIME baclofen 10 mg PO BEDTIME PRN bisacodyl (Dulcolax (bisacodyl)) 20 mg (4 x 5 mg) PO ONCE 1 day cholecalciferol (vitamin D3) (Vitamin D3) 50 mcg PO QAM cyclobenzaprine 5 mg PO TID PRN 7 days dabigatran etexilate (Pradaxa) 150 mg PO BID divalproex 1,000 mg PO BEDTIME dulaglutide (Trulicity) 4.5 mg (0.5 mL) subcut QWEEK empagliflozin (Jardiance) 25 mg PO QAM ezetimibe 10 mg PO QAM fluticasone propionate 50 mcg/actuation 1 spray intranasal DAILY insulin regular hum U-500 conc (Humulin R U-500 (Conc) Insulin Kwikpen) 80 units (0.16 mL) subcut TID lancets (TRUEplus Lancets) TEST BLOOD SUGAR SIX TIMES DAILY DIRECTED lisinopril 5 mg PO DAILY 90 days melatonin 1 tab PO BEDTIME PRN omeprazole 40 mg PO QAM PRN primidone 50 mg PO BID simethicone (Gas Relief (simethicone)) 125 mg PO ONCE sotalol 120 mg PO BID sotalol mg PO tamsulosin 0.4 mg PO BEDTIME 30 days HPI Comments Details: Abraham is a pleasant 58 year old male patient of Dr. Zamora. He has a past medical history of obesity, type 2 diabetes, hypertension, nonischemic cardiomyopathy, atrial flutter, hyperparathyroidism, obstructive sleep apnea, vitamin-D deficiency, dyslipidemia, and paroxysmal AFib. He presents to the office today for follow-up. Of note, patient was seen approximately 6 weeks ago as a new patient for ongoing lower urinary tract symptoms he has been experiencing at which time a PSA and retroperitoneal ultrasound were ordered for further assessment evaluation. These results reviewed with the patient today. Bilateral kidneys with no calculi, lesions, and or hydronephrosis. The bladder is well distended and normal. Pre void bladder volume is approximately 340 mL. Postvoid bladder volume is approximately 10 mL. Prostate measures approximately 23 mL. PSAs are as follows: 10/27 0.5, 12/28 0.6 During last office visit patient was started on Flomax as he had been reporting issues with urinary frequency, nocturia, and feeling of incomplete bladder emptying. However, patient reports he is unsure if he started taking this medication. He discusses at length losing his approximately 2 years ago to COVID. He discusses wanting to attempt to be in relationship however is worried as he feels he has issues with obtaining and maintaining his erections. We discussed at length importance of managing diabetes for improvement in urological issues as well as overall health and well-being. Most recent A1c results 10/28 9.6. In office urinalysis results reviewed with the patient today. PVR 11 mL. He otherwise offers no other issues or concerns at this time. 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 Hypertension Dyslipidemia Obesity Diabetes type 2, uncontrolled Paroxysmal A-fib Surgical History History of radiofrequency ablation procedure for cardiac arrhythmia Hx of colonoscopy Family History Father Cancer Diabetes CVD (cardiovascular disease) Mother Diabetes Social History Household Members: None Household Members Other:: Alcohol intake: never Patient Tobacco Use Status: Former Tobacco user Substance Use Type: Crack/Cocaine and Marijuana Current occupational status: disabled Current occupation: left handed Review of Systems Const Reports no additional complaints Eyes Reports no additional complaints ENT Reports no additional complaints Card Reports as per HPI Resp Reports as per HPI GI Reports as per HPI Reports as per HPI Musc Reports no additional complaints Neuro Reports no additional complaints Psych Reports no additional complaints Endo Reports as per HPI Nelson/Lymph Reports no additional complaints Aller/Immun Reports no additional complaints Physical Exam Const General: cooperative, comfortable, no acute distress, well developed, alert and awake Nutritional Appearance: overweight Orientation/consciousness: patient oriented x3 Limitations: no limitations HEENT Head: Yes normal to inspection, Yes normocephalic and Yes atraumatic Ears: hearing grossly normal bilaterally Eyes General: appearance normal, both eyes and all related structures Neck Neck: Yes normal visual inspection and Yes trachea midline Chest Chest palpation & inspection: normal inspection of the chest Resp Effort & Inspection: normal respiratory effort and able to speak in complete sentences Cardio Rate: regular rate GI Inspection: Yes normal to inspection General: Yes no CVA tenderness Back/Spine/Pelvis Back: no CVA tenderness Skin General skin exam: no rashes or lesions noted Neuro General: patient oriented x3 Extrem General: Yes normal to inspection Psych Appearance: grossly normal and well kempt Mental Status: mental status grossly normal Speech and movement: Normal speech and movement present and Clear speech present Affect: normal affect Attitude: cooperative Thought process: Normal thought process present Thought content: Normal thought content present Insight: Fair insight present (Psych) Judgement: Fair judgement present (Psych) Office Procedures Post Void Residual Post Residual Void Post Void Residual (PVR): 11 [id number] Void Residual by ultrasound Results AMB Urinalysis, Automated UA Leukoctes 0 Zuleika/uL Last Edit by Prescient Juan on 12/14/23 13:38 UA Nitrite Last Edit by Kionixabel Martinez on 12/14/23 13:38 UA Urobilinogen 0.2 mg/dL Last Edit by Kionixabel Martinez on 12/14/23 13:38 UA Protein 15 mg/dL Last Edit by Kionixabel Martinez on 12/14/23 13:38 UA pH 6.0 Last Edit by Kionixabel Martinez on 12/14/23 13:38 UA Blood 0 Will/uL Last Edit by Eben Martinez on 12/14/23 13:38 UA Specific [place] 1.010 Last Edit by Eben Martinez on 12/14/23 13:38 UA Ketone Last Edit by Eben Martinez on 12/14/23 13:38 UA Bilirubin 0 mg/dL Last Edit by Eben Martinez on 12/14/23 13:38 UA Glucose 250 mg/dL Last Edit by Eben Martinez on 12/14/23 13:38 Results Reviewed Results Reviewed: Laboratory Last Values Urine pH (Auto) 6.0 12/14/23 13:24 Specific [place] (Auto) 1.010 12/14/23 13:24 Urine Protein (Auto) 15 mg/dL 12/14/23 13:24 Glucose (UA)(Auto) 250 mg/dL 12/14/23 13:24 Urine Blood (Auto) 0 Will/uL 12/14/23 13:24 Urine Bilirubin (Auto) 0 mg/dL 12/14/23 13:24 Urine Urobilinogen (Auto) 0.2 mg/dL 12/14/23 13:24 Leukocyte Esterase (Auto) 0 Zuleika/uL 12/14/23 13:24 Date of Service: 11/28/23 EXAMINATION: US RETROPERITONEAL COMPLETE (RENAL) FINDINGS: RIGHT KIDNEY: 12.8 x 6.3 x 6.4 cm (SAG x AP x TRV). The kidney is normal in size, contour, and echogenicity. Renal cortical thickness is normal. No calculi or focal parenchymal lesions. No hydronephrosis. LEFT KIDNEY: 12.1 x 5.2 x 4.7 cm (SAG x AP x TRV). The kidney is normal in size, contour, and echogenicity. Renal cortical thickness is normal. No calculi or focal parenchymal lesions. No hydronephrosis. BLADDER: Well distended and normal. Left ureteral jet is demonstrated; right is not. Prevoid bladder volume is 339 mL. Postvoid bladder volume is 10.4 mL. IMPRESSION: Unremarkable renal ultrasound. Assessment & Plan Assessment & Plan (1) Lower urinary tract symptoms: Code(s): R39.9 - Unspecified symptoms and signs involving the genitourinary system Category: Medical (2) Nocturia: Code(s): R35.1 - Nocturia Category: Medical (3) Family history of prostate cancer: Code(s): Z80.42 - Family history of malignant neoplasm of prostate Category: Medical (4) Feeling of incomplete bladder emptying: Code(s): R39.14 - Feeling of incomplete bladder emptying Category: Medical (5) Erectile dysfunction associated with type 2 diabetes mellitus: Code(s): E11.69 - Type 2 diabetes mellitus with other specified complication; N52.1 - Erectile dysfunction due to diseases classified elsewhere Category: Medical Plan In office urinalysis results reviewed with the patient today; as noted above. PVR 11 mL. Recent retroperitoneal ultrasound results reviewed the patient today; as noted above. Recent PSA results reviewed with the patient today; as noted above. Discussed, educated, and stressed the importance of managing diabetes for overall health and well-being as well as to assist with urological issues and concerns. We discussed lifestyle modifications to assist with ED. Will obtain testosterone free and total for further assessment evaluation. Patient will call office to further assess if he trialed Flomax as he is unsure and feels lower urinary tract symptoms are variable. Follow-up in 3 months with lab and PVR; or concerns, and or questions. Orders: Orders AMB Urinalysis Automated Today Z13.9 - Encounter for screening, unspecified AMB Post Void Residual by ultrasound Today R39.9 - Unspecified symptoms and signs involving the genitourinary system Testosterone, Free/Total Today E11.69 - Type 2 diabetes mellitus with other specified complication, N52.1 - Erectile dysfunction due to diseases classified elsewhere Patient Instructions: The patient had an opportunity to ask questions regarding the treatment plan. All questions were answered. Physical exam, labs, and imaging were discussed and reviewed in detail. As well as risks, benefits, and discussion of treatment choices. No major barriers to understanding were identified. The patient expressed understanding and agreement with the above treatment plan. The patient was made aware they should contact our office by phone for worsening of their current condition, the appearance of new symptoms, or with any questions or concerns. Compliance is encouraged with any medications and follow up testing that is ordered. It is a privilege to be allowed the opportunity to participate in? your urological care.? Again, if you have any questions or concerns If you have any questions or concerns please do not hesitate to contact me. The office is [phone]. This note is constructed using voice recognition software. While every effort has been made to ensure accuracy malthouse laborer errors may have been included. Yours sincerely, VENU Smith-JESSICA Coding Level of Care Code Est Pt Level 3 (28014) Complex EM visit Add On G2211 Diagnoses Lower urinary tract symptoms R39.9 Nocturia R35.1 Family history of prostate cancer Z80.42 Feeling of incomplete bladder emptying R39.14 Erectile dysfunction associated with type 2 diabetes mellitus E11.69; N52.1 CPT Codes Post Residual Void - PVR CPT Code: 82191-Tham Void Residual by ultrasound ([id number])
== END 2023-12-14 13:52 | disposition home or self-care (01) ==
PROVIDERS: PCP Family Medicine; Visit Provider Nurse Practitioner Family
DX: R39.9 Unspecified symptoms and signs involving the genitourinary system (principal); R35.1 Nocturia; Z80.42 Family history of malignant neoplasm of prostate; R39.14 Feeling of incomplete bladder emptying; E11.69 Type 2 diabetes mellitus with other specified complication; N52.1 Erectile dysfunction due to diseases classified elsewhere; Z13.9 Encounter for screening, unspecified
CPT/HCPCS: 99213; G2211

== ENCOUNTER → 2023-12-14 13:03 | Outpatient (BNVA) | payer OTHER, SELFPAY | PROVIDERS: PCP Family Medicine; Visit Provider Nurse Practitioner Family | DX: R35.1 Nocturia (principal); R33.9 Retention of urine, unspecified; R39.14 Feeling of incomplete bladder emptying; E11.69 Type 2 diabetes mellitus with other specified complication; N52.1 Erectile dysfunction due to diseases classified elsewhere; Z80.42 Family history of malignant neoplasm of prostate | CPT/HCPCS: 51798; 81003; 99212 ==

== ENCOUNTER → 2024-01-24 14:29 | Outpatient (REF) | payer OTHER, SELFPAY ==
--- NOTE | 2024-01-24 14:31 | CA_ITS ---
Transthoracic Echocardiogram Patient (Last, First, Middle): Abraham Hoover, Gender: Male Date of : 1965 Age: 58 Procedure Date: 01/24/2024 Procedure Type: Transthoracic Echocardiogram Location: OP Height: 182. cm Weight: 108.86 kg BSA: 2.29 m2 Heart Rate: 81 bpm BP: 110 / 65 mmHg Sanding Machine Buffer: [id number] Referring MD: Lashae Landon NP-Deven Application Security Architect: Sidney Babin MD Symptoms: I10 - Essential (primary) hypertension Study Quality: Adequate w/Contrast ECG Rhythm: Sinus Conclusions: - 1. Normal LV ejection fraction 55-60% with grade 1 diastolic dysfunction 2. Normal cardiac valvular Dopplers 3. Mildly dilated ascending root at 4.2 cm 4. No gross pericardial effusion Findings Procedure Information Contrast agent, definity, is being given per protocol without apparent complications. Left Ventricle Normal left ventricular size, thickness, and systolic function. The visually estimated ejection fraction is between 55-60%. Spectral Doppler is indicative of an impaired relaxation filling pattern. E/E prime ratio is <8, consistent with normal filling pressures. Evidence suggests grade I (mild) diastolic dysfunction. Right Ventricle Normal right ventricular cavity size and systolic function. Atria The left atrium is normal in size. Interatrial shunt cannot be excluded. The right atrium is normal in size. Aortic Valve The aortic valve structure and function is likely normal. There is no aortic valve stenosis. There is no aortic valve regurgitation. Mitral Valve Normal mitral valve structure and function. There is mild mitral annular calcification. There is trace mitral valve regurgitation. There is no mitral valve stenosis. Pulmonic Valve The pulmonic valve was not well visualized. Tricuspid Valve Likely normal tricuspid valve structure and function. Tricuspid regurgitation envelope is inadequate for calculation of right ventricular systolic pressure. Normal right atrial pressure. There is no evidence of pulmonary hypertension. Great Vessels The pulmonary artery was not well visualized. There is mild dilatation of the sinuses of Valsalva and no dilatation of the ascending aorta measuring 3.40 cm. Venous The inferior vena cava is normal in size and collapses greater than 50% with inspiration. Pericardium/Pleural There is no evidence of pericardial effusion. Prior Study Comparison No significant change compared to prior study dated: 12/21/2021. Measurements 2D Linear Measurements IVSd: 1.18 0.6-0.9/0.6-1.0 cm LVIDd: 5.46 3.9-5.3/4.2-5.9 cm LVIDd Index: 2.38 2.4-3.2/2.2-3.1 cm/m2 LVIDs: 3.23 2.0-3.6 cm LVPWd: 0.93 0.7-1.1 cm LA Diam: 3.30 2.7-3.8/3.0-4.0 cm LAIDs Index: 1.44 1.5-2.3 cm/m2 LV Mass: 282.58 67-162/88-224 g LV Mass Index: 123.40 43-95/49-115 g/m2 LVOT Diam: 2.40 3.0+(-)1.3 cm 2D Systolic Function EF 4C: 55.20 >55% EF 2C: 60.30 >55% EF BiP: 57.80 >55% Mitral Valve MV Pk E: 0.73 MV PK A: 0.75 MV Decel Time: 202.00 E/A: 1.00 E'Lateral: 10.80 E'Medial: 7.94 E/E' Med: 9.20 E/E' Lat: 6.80 PHT: 59.00 MVA PHT: 3.73 Decel Grant: 3.63 Aortic Valve AoV Pk Mohit: 1.22 AoV Mn Mohit: 0.90 AoV VTI: 0.22 AoV Pk Grad: 6.00 Aov Mn Grad: 4.00 KATIANA Cont.VTI: 3.42 LVOT LVOT Pk Mohit: 0.91 LVOT Mn Mohit: 0.62 LVOT VTI: 0.17 LVOT Pk Grad: 3.00 LVOT Mn Grad: 2.00 LVOT Diam: 2.40 LVOT Area: 4.52 Diastolic Function MV Pk E: 0.73 MV Pk A: 0.75 E/A: 1.00 E'Medial: 7.94 E/E' Med: 9.20 E' Laterial: 10.80 E/E' Lat: 6.80 Right Ventricle TAPSE (mm): 28.00 TVS' Mohit: 10.90 Tricuspid Valve RA Press: 3.00 Great Vessels Aorta Sinus of Valsalva: 4.20 2.0-3.5 cm Ao Asc: 3.40 2.1-3.4 cm Pulmonary Valve PV Pk Mohit: 0.77 Peak PV Grad: 2.00 Updated in Other Vendor System with Status of Final Sidney Babin MD electronically signed on 01/25/2024 4:31:20 PM with status of Final
== END ==
LOC: HO.CARD 14:29
PROVIDERS: PCP Family Medicine; Visit Provider Nurse Practitioner Family
DX: I48.0 Paroxysmal atrial fibrillation (principal); I42.8 Other cardiomyopathies; R07.2 Precordial pain
CPT/HCPCS: 93306; Q9957

== ENCOUNTER → 2024-01-24 14:31 | Outpatient (BNV) | payer OTHER, SELFPAY | PROVIDERS: PCP Family Medicine; Visit Provider Internal Medicine Cardiovascular Disease | DX: I51.89 Other ill-defined heart diseases (principal) | CPT/HCPCS: 93306 ==

== ENCOUNTER → 2024-03-15 06:58 | Outpatient (REF) | payer OTHER, SELFPAY ==
--- NOTE | ~2024-03-15 | NM_ITS ---
Lexiscan Myocardial perfusion study Indication: Chest pain, shortness of breath, atrial fibrillation Technique: The patient was brought in for a Lexiscan perfusion study on 03/15/2024 and was injected 0.4 mg of Lexiscan intravenously. Within a minute of this injection 30 mCi of sestamibi was given intravenously. Images were obtained using the SPECT gamma camera interlaced with the gating device. Images were obtained in supine position. Resting perfusion study was performed on 03/16/2024. Patient was administered 30 mCi of sestamibi intravenously at rest. Images were then obtained in supine position. Total DLP 123 mGy-cm. Images were processed with the software and compared side to side in short axis, horizontal long axis and vertical long axis views. Findings: Raw aquisition reviewed. Arms by the patient's side. There is a subdiaphragmatic tracer uptake during stress and rest. The stress perfusion study showed decreased tracer uptake along the inferior wall, more so towards the apex. There is improvement with CT attenuation correction suggestive of diaphragmatic attenuation artifact. The gated study shows normal LV systolic function with calculated LVEF of 57%. LV cavity is normal in size. The gated study shows normal wall thickening and contraction of segments. Resting study shows no significant perfusion abnormality. Inferior wall assessment suboptimal due to subdiaphragmatic tracer uptake. Gating at rest reveals normal wall motion with ejection fraction at 47%. The findings are consistent with no clear reversal or fixed perfusion defects. NV/NV cardiolite stress test Impression: 1. Myocardial perfusion imaging study shows no clear evidence of ischemia or infarction. Inferior wall assessment suboptimal due to subdiaphragmatic tracer uptake. 2. Gated LVEF is 57% during stress and 47% during rest. 3. Transient ischemic dilatation not present. EKG component of the test reported separately. Electronically signed by: Matias Marcelino MD 03/18/2024 01:28 PM [facility]
--- NOTE | 2024-03-15 08:18 | CA_ITS ---
Acquisition Time: 2024-03-15 10:06:25 Total Exercise Time: 00:02:00 Test Indications: CP, SOB, AFIB/FLUTTER Medications: SEE H&P Protocol: LEXISCAN Max HR: 113 BPM 70% of Pred: 160 BPM Max BP: 124/72 mmHG Max Work Load: 1.0 METS Pharmacologic Stress Test with Lexiscan, while pt marches in his chair, with reports of flushing and SOB, no chest discomfort, without any arrythmias, with normotensive response to injection. Nondiagnostic EKG for ischemia. In recovery, pt treated with IVP Aminophylline 75 mg to reverse Lexiscan, after which pt feeling back to baseline. Nuclear images pending. Test reviewed with Dr. Marcelino. Referred By: Lashae Landon Electronically Signed By: Neto Dia
[2024-03-19 21:18] LABS: Testosterone, Total 445 ng/dL (250-1100)
== END ==
LOC: HO.CARD 06:58
PROVIDERS: Absent Provider Nurse Practitioner Family; PCP Family Medicine; Visit Provider Nurse Practitioner Family
DX: Z01.810 Encounter for preprocedural cardiovascular examination (principal); R07.2 Precordial pain; I42.8 Other cardiomyopathies; I48.0 Paroxysmal atrial fibrillation; N52.1 Erectile dysfunction due to diseases classified elsewhere; E11.69 Type 2 diabetes mellitus with other specified complication
CPT/HCPCS: 36415; 78452; 84402; 84403; 93017; 99212; A9500; J0280; J2785

== ENCOUNTER → 2024-03-15 08:18 | Outpatient (BNV) | payer OTHER, SELFPAY | PROVIDERS: Absent Provider Nurse Practitioner Family; PCP Family Medicine | DX: R06.02 Shortness of breath (principal) | CPT/HCPCS: 78452; 93016; 93018 ==

== ENCOUNTER 2024-03-16 07:53 | Outpatient (AMB) | payer OTHER, SELFPAY ==
[2024-03-16 07:56] VITALS: BP 112/78; PULSE 86; BMI 26.6
--- NOTE | 2024-03-16 07:56 | A.OFFVIS_ITS ---
Vital Signs 03/16/24 07:56 Height 6 ft Weight 196 lb 3.382 oz BMI 26.6 BP 112/78 Blood Pressure Location Rt brachial Position Sitting Pulse 86 Pulse Source Pulse Oximeter Intake Visit Reasons: DM Intake Note: Patient presents today for a follow-up on Type 2 Diabetes Mellitus: Last Diabetic eye exam was on: DUE Last Podiatry exam was on: Patient does not see a Triple Air Valve Tester Most recent HbA1c: 9.2%, 03/16/2024 Random Glucose- 175 mg/dL, Today Vault Person Required: No Accompanied by: Self / Same As Patient Allergies Penicillins [PENICILLINS] Allergy (Unknown, Verified 03/16/24 07:58) UNKNOWN metformin Adverse Reaction (Unknown, Verified 03/16/24 07:58) diarrhea HPI Comments Details: Patient is 58-year-old male with pmhx of DM type 2 diagnosed 2006 who presents for management of diabetes. He was last seen by Huma LARSEN on 10/18/23. Most recent hemoglobin A1c 03/16/2024 % 10/18/2023 9.6%. Past medical history: AFIB, CHF, obesity, dyslipidemia, HTN, CLAUDIA on BIPAP, h/o low Vit D, depression, OA.. Micro and macrovascular complications: Nephropathy and neuropathy Patient previously intolerant to metformin. Intolerant of Jardiance due to yeast infection. Actos was stopped few years ago- he has mild decreased ejection fraction. Diabetes medications: Humulin U 500 80 units twice daily Trulicity 4.5 mg per week Jardiance 25 mg daily. 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 No nephropathy 12/07/2023 microalbumin less than 5.0 eGFR>60 Diet: Breakfast-fruits, bagel with cream cheese occ, coffee occ oj or boiled eggs Lunch: burrito sometimes and sometimes brian soda Dinner-rice with protein and water Has met with RD MANY times Snacks/desserts: He's been eating a pack of alva and ikes every few days. Sometimes chips or club crackers. Exercise: none Hypoglycemia symptoms: 0ccasional 40 at night Hyperglycemia symptoms: none Hyperlipidemia: treated with Zetia and Atorvastatin. No recent lipid profile on file. 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 Absence of acromegalic features. Neck exam reveals nl size thyroid about 15 gms. No thyroid nodules palpable. Heart S1 S2, Reg R/R. No M/R G. Skin exam reveals absence of vitiligo or acanthosis nigricans. Visual exam of foot performed. No ulcerations or open lesions. No inter digit maceration or fissuring. No onychomycosis, no callouses. Sensation intact to monofilament exam. Vibratory sensation is normal with 128 Hz tuning fork. Results AMB Hemoglobin A1c AMB Hemoglobin A1c 9.2 % Last Edit by ANGIE Pollard on 03/16/24 08:15 Assessment & Plan Assessment & Plan (1) Diabetes type 2, uncontrolled: Code(s): E11.65 - Type 2 diabetes mellitus with hyperglycemia Category: Medical Qualifiers: Glycemic state: with hyperglycemia Qualified Code(s): E11.65 - Type 2 diabetes mellitus with hyperglycemia Plan: 58-year-old type 2 diabetic with poorly controlled diabetes. Changes to medication: Trulicity 4.5mg-> change to Mounjaro Jardiance 25 mg u500 84 units bid Plan Orders: Orders AMB Hemoglobin A1c Today E11.8 - Type 2 diabetes mellitus with unspecified complications Medications: New tirzepatide (Mounjaro) 2.5 mg (0.5 mL) subcut QWEEK 4 weeks 2 mL 1RF Coding Diagnoses Uncontrolled type 2 diabetes mellitus with hyperglycemia E11.65 Glycemic state: with hyperglycemia
[2024-03-16 08:10] LABS: Glucose, Whole Blood 175 mg/dL (60-115)
== END 2024-03-16 08:39 | disposition home or self-care (01) ==
PROVIDERS: PCP Family Medicine; Visit Provider Nurse Practitioner Adult Health
DX: E11.8 Type 2 diabetes mellitus with unspecified complications (principal)

== ENCOUNTER → 2024-03-16 07:53 | Outpatient (BNVA) | payer OTHER, SELFPAY | PROVIDERS: PCP Family Medicine; Visit Provider Nurse Practitioner Adult Health | DX: E11.8 Type 2 diabetes mellitus with unspecified complications (principal) | CPT/HCPCS: 82947; 83036 ==

== ENCOUNTER 2024-04-05 13:32 | Outpatient (AMB) | payer OTHER, SELFPAY ==
--- NOTE | 2024-04-05 13:35 | A.OFFVIS_ITS ---
Intake Visit Reasons: 3m/Testo(set) Intake Note: Patient presents today for follow up on: Nocturia, incomplete bladder emptying, and lab results Testosterone: 445; Free Testosterone: 36 Urology Medications: tamsulosin Blood Thinner: none PVR: 51ml's Volleyball Commentator Required: No Accompanied by: Self / Same As Patient Allergies Penicillins [PENICILLINS] Allergy (Unknown, Verified 04/05/24 16:17) UNKNOWN metformin Adverse Reaction (Unknown, Verified 04/05/24 16:17) diarrhea Medication List - Last Reconciled 04/05/24 by SHU Smith atorvastatin 80 mg PO BEDTIME baclofen 10 mg PO BEDTIME PRN bisacodyl (Dulcolax (bisacodyl)) 20 mg (4 x 5 mg) PO ONCE 1 day blood-glucose sensor (FreeStyle Aurelio 3 Plus Sensor device) As directed every 15 days cholecalciferol (vitamin D3) (Vitamin D3) 50 mcg PO QAM cyclobenzaprine 5 mg PO TID PRN 7 days dabigatran etexilate (Pradaxa) 150 mg PO BID divalproex 1,000 mg PO BEDTIME dulaglutide (Trulicity) 4.5 mg (0.5 mL) subcut QWEEK empagliflozin (Jardiance) 25 mg PO QAM ezetimibe 10 mg PO QAM fluticasone propionate 50 mcg/actuation 1 spray intranasal DAILY FreeStyle Aurelio 3 [place] (blood-glucose meter,continuous) for use with freestyle NS insulin regular hum U-500 conc (Humulin R U-500 (Conc) Insulin Kwikpen) Breakfast 55 units, 80 units if over 200 supper 55 units, 70 units if over 200 subcutaneously 2 times a day; 30 days lancets (TRUEplus Lancets) USE DIRECTED TO TEST BLOOD SUGAR SIX TIMES DAILY DIRECTED lisinopril 5 mg PO QAM melatonin 1 tab PO BEDTIME PRN omeprazole 40 mg PO QAM PRN primidone 50 mg PO BID simethicone (Gas Relief (simethicone)) 125 mg PO ONCE sotalol 120 mg PO BID sotalol mg PO tamsulosin 0.4 mg PO BEDTIME 30 days tirzepatide (Mounjaro) 2.5 mg (0.5 mL) subcut QWEEK 4 weeks HPI Comments Details: Abraham is a pleasant 58 year old male patient of Dr. Zamora. He has a past medical history of obesity, type 2 diabetes, hypertension, nonischemic cardiomyopathy, atrial flutter, hyperparathyroidism, obstructive sleep apnea, vitamin-D deficiency, dyslipidemia, and paroxysmal AFib. He presents to the office today for follow-up. In discussion with the patient today he reports to be doing and feeling well. He denies having had any bothersome urinary issues or concerns since his last office visit here. He reports compliance with Flomax as prescribed. He does report episodes of urinary dribbling however feels he is managing this well independently. He discusses following up with endocrinology and has switched over his weight loss medications as he has had a significant amount of intention weight loss however has started to feel a little bit more fatigued. Previous work up has included a retroperitoneal ultrasound 11/28 noting bilateral kidneys with no calculi, lesions, and or hydronephrosis. The bladder is well distended and normal. Pre void bladder volume is approximately 340 mL. Postvoid bladder volume is approximately 10 mL. Prostate measures approximately 23 mL. PSAs are as follows: 10/27 0.5, 12/28 0.6 We discussed at length the importance of managing diabetes for improvement in lower urinary tract symptoms as well as overall health and well-being. A1c 03/31 9.2. In office urinalysis results reviewed with the patient today. PVR 51 mL. He otherwise offers no other issues or concerns at this time. FORMERLY [facility] Medical History Pre-operative cardiovascular examination Morbid obesity Type 2 diabetes mellitus with unspecified complications Essential hypertension Nonischemic cardiomyopathy Typical atrial flutter Hyperparathyroidism CLAUDIA (obstructive sleep apnea) Vitamin D deficiency Diabetic nephropathy associated with type 2 diabetes mellitus [facility] (current) use of insulin Hypertension Dyslipidemia Obesity Diabetes type 2, uncontrolled Paroxysmal A-fib Surgical History History of radiofrequency ablation procedure for cardiac arrhythmia Hx of colonoscopy Family History Father Cancer Diabetes CVD (cardiovascular disease) Mother Diabetes Social History Household Members: None Household Members Other:: Alcohol intake: never Patient Tobacco Use Status: Former Tobacco user Substance Use Type: Crack/Cocaine and Marijuana Current occupational status: disabled Current occupation: left handed Review of Systems Const Reports no additional complaints Eyes Reports no additional complaints ENT Reports no additional complaints Card Reports as per HPI Resp Reports as per HPI GI Reports as per HPI Reports as per HPI Musc Reports no additional complaints Neuro Reports no additional complaints Psych Reports no additional complaints Endo Reports as per HPI Nelson/Lymph Reports no additional complaints Aller/Immun Reports no additional complaints Physical Exam Const General: cooperative, comfortable, no acute distress, well developed, alert and awake Nutritional Appearance: overweight Orientation/consciousness: patient oriented x3 Limitations: no limitations HEENT Head: Yes normal to inspection, Yes normocephalic and Yes atraumatic Ears: hearing grossly normal bilaterally Eyes General: appearance normal, both eyes and all related structures Neck Neck: Yes normal visual inspection and Yes trachea midline Chest Chest palpation & inspection: normal inspection of the chest Resp Effort & Inspection: normal respiratory effort and able to speak in complete sentences Cardio Rate: regular rate GI Inspection: Yes normal to inspection General: Yes no CVA tenderness Back/Spine/Pelvis Back: no CVA tenderness Skin General skin exam: no rashes or lesions noted Neuro General: patient oriented x3 Extrem General: Yes normal to inspection Psych Appearance: grossly normal and well kempt Mental Status: mental status grossly normal Speech and movement: Normal speech and movement present and Clear speech present Affect: normal affect Attitude: cooperative Thought process: Normal thought process present Thought content: Normal thought content present Insight: Fair insight present (Psych) Judgement: Fair judgement present (Psych) Office Procedures Post Void Residual Post Residual Void Post Void Residual (PVR): 55 [id number] Void Residual by ultrasound Results AMB Urinalysis, Automated UA Leukoctes 0 Zuleika/uL Last Edit by Eben Martinez on 04/05/24 14:00 UA Nitrite Last Edit by Eben Martinez on 04/05/24 14:00 UA Urobilinogen 0.2 mg/dL Last Edit by Eben Martinez on 04/05/24 14:00 UA Protein 0 mg/dL Last Edit by Eben Martinez on 04/05/24 14:00 UA pH 6.5 Last Edit by Eben Martinez on 04/05/24 14:00 UA Blood 0 Will/uL Last Edit by Eben Martinez on 04/05/24 14:00 UA Specific [place] 1.010 Last Edit by Eben Martinez on 04/05/24 14:00 UA Ketone Last Edit by Eben Martinez on 04/05/24 14:00 UA Bilirubin 0 mg/dL Last Edit by Eben Martinez on 04/05/24 14:00 UA Glucose 500 mg/dL Last Edit by Eben Martinez on 04/05/24 14:00 Results Reviewed Results Reviewed: Laboratory Last Values Urine pH (Auto) 6.5 04/05/24 13:43 Specific [place] (Auto) 1.010 04/05/24 13:43 Urine Protein (Auto) 0 mg/dL 04/05/24 13:43 Glucose (UA)(Auto) 500 mg/dL 04/05/24 13:43 Urine Blood (Auto) 0 Will/uL 04/05/24 13:43 Urine Bilirubin (Auto) 0 mg/dL 04/05/24 13:43 Urine Urobilinogen (Auto) 0.2 mg/dL 04/05/24 13:43 Leukocyte Esterase (Auto) 0 Zuleika/uL 04/05/24 13:43 Assessment & Plan Assessment & Plan (1) Nocturia: Code(s): R35.1 - Nocturia Category: Medical (2) Lower urinary tract symptoms: Code(s): R39.9 - Unspecified symptoms and signs involving the genitourinary system Category: Medical (3) Family history of prostate cancer: Code(s): Z80.42 - Family history of malignant neoplasm of prostate Category: Medical (4) Feeling of incomplete bladder emptying: Code(s): R39.14 - Feeling of incomplete bladder emptying Category: Medical Plan In office urinalysis results reviewed with the patient today; as noted above. PVR 51 mL. Continue Flomax as discussed and prescribed. We discussed pelvic floor exercises to assist with urinary dribbling. Patient reports be happy with current voiding parameters. We discussed at length importance of managing diabetes for improvement in lower urinary tract symptoms as well as overall health and well-being. Will obtain PSA in 6 months. Follow-up in 6 months with PSA and PVR; or sooner with any issues, concerns, and or questions. Orders: Orders AMB Urinalysis Automated Today Z13.9 - Encounter for screening, unspecified AMB Post Void Residual by ultrasound Today R39.9 - Unspecified symptoms and signs involving the genitourinary system Prostate Specific Antigen 6 Months Z80.42 - Family history of malignant neoplasm of prostate Patient Instructions: The patient had an opportunity to ask questions regarding the treatment plan. All questions were answered. Physical exam, labs, and imaging were discussed and reviewed in detail. As well as risks, benefits, and discussion of treatment choices. No major barriers to understanding were identified. The patient expressed understanding and agreement with the above treatment plan. The patient was made aware they should contact our office by phone for worsening of their current condition, the appearance of new symptoms, or with any questions or concerns. Compliance is encouraged with any medications and follow up testing that is ordered. It is a privilege to be allowed the opportunity to participate in? your urological care.? Again, if you have any questions or concerns If you have any questions or concerns please do not hesitate to contact me. The office is [phone]. This note is constructed using voice recognition software. While every effort has been made to ensure accuracy motorcycle service technician errors may have been included. Yours sincerely, SHU Smith Coding Level of Care Code Est Pt Level 3 (13452) Diagnoses Nocturia R35.1 Lower urinary tract symptoms R39.9 Family history of prostate cancer Z80.42 Feeling of incomplete bladder emptying R39.14 CPT Codes Post Residual Void - PVR CPT Code: 44246-[id number] Void Residual by ultrasound ([id number])
--- OUTSIDE RECORDS SUMMARY | 2024-04-05 17:24 | XMS_ITS | Data Portability ---
Author Organization [employer] - [employer] Address [address] [place] [address] Care Team Providers Care Numberer And Wirer Name Role Phone [facility] Referring Provider [facility] Referring Provider [phone] Assessment Encounter Date Assessment Date Assessment LastModified by Organization Details LastModified Time 05/14/2022 05/14/2022 I provided real -time medical direction via phone for this encounter, and was available for additional phone based assistance as needed. I have reviewed and agree with the Assessment and Plan as documented by the Command Center Analyst. Patient given the opportunity to ask questions. Patient with his own Apple watch and is monitoring his heart rates with known AFib. He is very adherent to his medication regimen which includes Lopressor at 50 mg XL preparation q.a.m. and digoxin 0.125 mcg daily. He was just in the emergency department on 05/12 and was discharged home with cardiology follow-up on Wednesday 05/17. he notes that he has been having some heart rates that are elevated up into the 120s and at that point has palpitations but no specific chest pain. He does not note any heart rates less than 50. Currently his rate is 107 but obviously fluctuating as he has AFib. during the time the supervisor wood room was there is heart rate generally stayed between 100-110. during this time he had stable vitals with blood pressures in the upper 120s. We discussed the Emergency Department which he is fairly adamant he does not want to return to. He appears stable and can be managed at home with close follow-up. It is reassuring he has an Apple watch to monitor his own rates as well as the fact that his blood pressure is well within normal range. Our plan is to prescribe metoprolol at 25 mg XL and have him take that in the evening for a total daily dose of 75 mg XL daily starting today. He will take this regimen today and Tuesday as well as his usual dose on Tuesday at 50 mg and we will have another Inst[facility] visit on Tuesday. He will then have cardiology follow-up on Tuesday. We discussed red flags including chest pain, shortness of breath, dyspnea on exertion, heart rates that are sustained above 140 or 150. he feels comfortable monitoring his heart rate with his what should and with the plan of adding additional beta blockade. As an addendum the patient called his lab support tech to clarify his dose. He was supposed to be on metoprolol 50 mg twice a day. Upon further discussion with his lab support tech he was referred to the emergency department and the paramedics on the scene facilitated his transport on continuous monitoring. [email or web address] Not available 05/14/2022 13:47:56 Plan of Treatment Reminders Order Date Submit Date Provider Last Modified By Organization Details Last Modified Time Details Appointments None recorded. Lab None recorded. Referral None recorded. Procedures None recorded. Surgeries None recorded. Imaging None recorded. Medication Orders metoprolol succinate ER 25 mg tablet,exte nded release 24 hr 2022 023 [facility], [address] [place] [address], [id number], 3 13:41:10 Patient TargetsNo targets recorded. Patient InstructionsNo instructions recorded. Reason for Referral None Reported. Medical Equipment None Reported. Allergies Allergen ID Allergen Name Allergen Category Reaction Reaction Severity Criticality Documentation Date Start Date Code Code System Note Provider Name and Address Organization Details Recorded Time 6987 Product containin g penicilli n and antibioti c (product) medicatio n Not available Not available Not available 01/03/2024 [id number] SNOMED Not Available [facility] - production 03:33:38 Medications Name Sig Start Date Stop Date Status Note LastModified by Organization Details LastModified Time medbox status USE DIRECTED active Not Available Not Available No t Available cyclobenzapr ine 10 mg tablet TAKE 1 TABLET BY MOUTH THREE TIMES DAILY NEEDED FOR MUSCLE SPASMS active Not Available Not Available No t Available primidone 50 mg tablet TAKE 1 TABLET BY MOUTH TWICE DAILY IN THE MORNING AND AT BEDTIME active Not Available Not Available No t Available atorvastatin 80 mg tablet TAKE 1 TABLET BY MOUTH AT BEDTIME active Not Available Not Available No t Available divalproex 250 mg tablet,delay ed release TAKE 1 TABLET BY MOUTH EVERY MORNING active Not Available Not Available No t Available sotalol 80 mg tablet TAKE 2 TABLETS BY MOUTH TWICE DAILY IN THE MORNING AND AT BEDTIME active Not Available Not Available No t Available divalproex 500 mg tablet,delay ed release TAKE 1 TABLET BY MOUTH EVERY MORNING and TAKE 2 TABLETS BY MOUTH EVERY DAY AT BEDTIME active Not Available Not Available No t Available digoxin 250 mcg (0.25 mg) tablet TAKE 1 TABLET BY MOUTH EVERY MORNING active Not Available Not Available No t Available omeprazole 40 mg capsule,xiomy yed release TAKE 1 CAPSULE BY MOUTH EVERY MORNING NEEDED active Not Available Not Available No t Available tramadol 50 mg tablet TAKE 1 TABLET BY MOUTH EVERY 6 HOURS NEEDED FOR SEVERE PAIN active Not Available Not Available Not Available sotalol 120 mg tablet TAKE 1 TABLET BY MOUTH TWICE DAILY IN THE MORNING AND AT BEDTIME active Not Available Not Available No t Available baclofen 10 mg tablet TAKE 1 TABLET BY MOUTH AT BEDTIME NEEDED FOR MUSCLE SPASMS active Not Available Not Available No t Available divalproex ER 500 mg tablet,exten ded release 24 hr TAKE 1 TABLET BY MOUTH EVERY MORNING and TAKE 2 TABLETS BY MOUTH EVERY DAY AT BEDTIME active Not Available Not Available No t Available lidocaine 5 % topical patch APPLY 1 PATCH TOPICALLY TO SKIN, LEAVE ON FOR 12 HOURS AND OFF FOR 12 HOURS DIRECTED. APPLY TO MOST PAINFUL AREA. active Not Available Not Available No t Available metoprolol tartrate 50 mg tablet TAKE 1 TABLET BY MOUTH TWICE DAILY IN THE MORNING AND AT BEDTIME active Not Available Not Available No t Available lisinopril 5 mg tablet TAKE 1 TABLET BY MOUTH EVERY MORNING active Not Available Not Available No t Available digoxin 125 mcg (0.125 mg) tablet TAKE 1 TABLET BY MOUTH EVERY MORNING active Not Available Not Available No t Available metoprolol succinate ER 25 mg tablet,exten ded release 24 hr Take 1 tablet every day by oral route in the evening for 30 days. 2022 active Not Available Not Available Not Avai lable clobetasol 0.05 % topical ointment APPLY A THIN LAYER TOPICALLY AFFECTED AREA(S) TWICE DAILY active Not Available Not Available Not Available diltiazem 60 mg tablet TAKE 1 TABLET BY MOUTH TWICE DAILY IN THE MORNING AND IN THE EVENING active Not Available Not Available No t Available ezetimibe 10 mg tablet TAKE 1 TABLET BY MOUTH EVERY MORNING active Not Available Not Available No t Available divalproex ER 250 mg tablet,exten ded release 24 hr TAKE 1 TABLET BY MOUTH EVERY MORNING active Not Available Not Available No t Available Alcohol Prep Pads USE DIRECTED TWICE DAILY active Not Available Not Available Not Available FreeStyle Lite Strips TEST BLOOD SUGAR SIX TIMES DAILY active Not Available Not Available Not Available melatonin 5 mg tablet TAKE 2 TABLETS BY MOUTH EVERY DAY AT BEDTIME NEEDED active Not Available Not Available No t Available dabigatran etexilate 150 mg capsule TAKE 1 CAPSULE BY MOUTH TWICE DAILY IN THE MORNING AND IN THE EVENING active Not Available Not Available No t Available Vitamin D3 50 mcg (2,000 unit) capsule TAKE 1 CAPSULE BY MOUTH EVERY MORNING active Not Available Not Available No t Available TRUEplus Lancets 33 gauge TEST BLOOD SUGAR FOUR TIMES DAILY active Not Available Not Available Not Available Jardiance 25 mg tablet TAKE 1 TABLET BY MOUTH EVERY MORNING active Not Available Not Available No t Available Humulin R U-500 (Conc) Insulin Kwikpen 500 unit/mL (3 mL) subcutaneous INJECT 80 UNITS SUBCUTANEOU SLY THREE TIMES DAILY WITH MEALS active Not Available Not Available N ot Available Trulicity 4.5 mg/0.5 mL subcutaneous pen injector INJECT ONE PEN (= 4.5MG) SUBCUTANEOU SLY ONCE A WEEK DIRECTED active Not Available Not Available No t Available Vitals Date Recorded Oxygen saturation Oxygen saturation in Arterial blood by Pulse oximetry Body temperature Respiratory rate Heart rate Systolic blood pressure Diastolic blood pressure Provider Name and Address Organization Details Last Updated DateTime 3 97 % 97 % 98.4 [degF] 18 /min 108 /min 127 mm[Hg] 84 mm[Hg] Not Available [facility] - production 3 13:19:44 Social History None recorded. Functional Status None recorded. Mental Status None recorded. Family History Nothing Reported. Medical History No medical history recorded. Past Encounters Encounter ID Performer Location Encounter Start Date Encounter Closed Date Diagnosis/Indication Diagnosis SNOMED-CT Code Diagnosis ICD10 Code Diagnosis Note [id number] Abena Kent MD [facility] - [facility] [address] [place] [address] 05/14/2022 13:19:28 05/17/2022 10:39:10 Atrial fibrillation 82718574 I48.91 Health Concerns Section Related Observation LastModified by Organization Detai ls LastModified Time None Recorded Concern Status LastModified by Organization Details LastModified Time None Recorded Advance Directives Directive None Recorded Payers Encounter Date Sequence Insurance Name Policy Number Policy Patterson Covered Member ID Patterson Member ID Guarantor Name 05/14/2022 1 [facility] - DOS PRIOR TO 2022 - DUAL ELIGIBLE (MEDICARE REPLACEMENT/ADV ANTAGE - HMO) Abraham Ansair [id number] Abraham Ansari Notes Date Note Type Note Provider Name and Address Organization Details Recorded Time 05/14/2022 text/html HPI: ALLERGIC TO: PCN, METFORMIN. Patient with history of Afib with recent med change reporting HR 120's with slight dizziness. Recently seen 05/12/22 with complaints of chest pain [facility] [place] [facility] .................. .................. .................. .................. .................. .................. .................. ............... CRC Nursing Assessment: Comments: CRC RN did not require any additional information to process this visit. Abena Kent MD [address] [place] [address],[address], [place], [address], [employer] 05/14/2022 13:48:00
--- OUTSIDE RECORDS SUMMARY | 2024-04-05 17:24 | XMS_ITS | Encounter Summary ---
Author Organization [employer] Address [address] [facility] [address] [place] [address] Care Team Providers Care Boat Officer Name Role Phone Hillary Zamora MD Primary Care Provider [phone]- [phone] Encounter Details Date Type Department Care Team (Latest Contact Info) Description 03/21/2024 Travel Social History Tobacco Use Types Packs/Day Years Used Date Smoking Tobacco: Former Cigarettes Smokeless Tobacco: Never Alcohol Use Standard Drinks/Week Comments Never 0 (1 standard drink = 0.6 oz pur e alcohol) Depression Answer Date Recorded Patient Health Questionnaire-9 Score 0 05/25/2023 Patient Health Questionnaire-9 Score 0 05/25/2023 Last PHQ-9: Questionnaire Data Not on file 0 05/25/2023 Housing Stability Answer Date Recorded What is your housing situation today? I have j luis jacobs 12/22/[address] you li ve. Do you have problems with any of the following? None of the above 12/22/2022 Food Insecurity Answer Date Recorded Within the past 12 months, y ou worried that your food would run out before you got money to buy more: Never True 12/22/2022 Within the past 12 months,th e food you bought just didn't last and you didn't have enough money to get more: Never True Transportation Answer Date Recorded In the past 12 months, has l ack of transportation kept you from medical appts, meetings, work or from getting things needed for daily living? No 12/22/2022 Utilities Answer Date Recorded In the past 12 months, has t he electric, gas, oil or water company threatened to shut off services in your home? No 12/22/2022 Depression Answer Date Recorded Patient Health Questionnaire-2 Score 0 05/25/2023 Sex and Gender Information Value Date Recorded Sex Assigned at Male 01/04/2022 10:19 AM EDT Legal Sex Male 10:19 AM EDT Gender Identity Male 01/04/2022 10:19 AM EDT Sexual Orientation Choose not to disclose 2021 10:19 AM EDT documented as of this encounter Plan of Treatment Not on file documented as of this encounter Visit Diagnoses Not on filedocumented in this encounter Additional Health Concerns Assessment Noted Time PHQ-9 Depression Total Score: 0 05/25/19 24 10:32 AM EDT documented as of this encounter Care Teams Boat Officer Relationship Specialty Start Date End Date Hillary Zamora MD [address] [place] [address] PCP - General Family Medicine 03/07/18 documented as of this encounter
--- OUTSIDE RECORDS SUMMARY | 2024-04-05 17:24 | XMS_ITS | Encounter Summary ---
Author Organization [employer] Address [address] [facility] [address] [place] [address] Care Team Providers Care Tents Assembler Name Role Phone Hillary Zamora MD Primary Care Provider +1- [phone] Reason for Visit * Reason Comments Med Refill Encounter Details Date Type Department Care Team ([facility] st Contact Info) Description 03/28/2024 Refill [facility] [address] [place], [place] [phone] Hillary Zamora MD [address] [place], [place] [phone] Social History Tobacco Use Types Packs/Day Years [...] documented as of this encounter Care Teams Tents Assembler Relationship Specialty Start Date End Date Hillary Zamora MD [address] [place] [phone] PCP - General Family Medicine 03/07/18 documented as of this encounter
--- OUTSIDE RECORDS SUMMARY | 2024-04-05 17:24 | XMS_ITS | Encounter Summary ---
Author Organization [employer] [facility] Address [address] [facility] [address] [facility] [address] [place] [address] Care Team Providers Care Asset Protection Agent Name Role Phone Hillary Zamora MD Primary Care Provider +1- [phone] Encounter Details Date Type Department Care Team (Late st Contact Info) Description 03/16/2024 Orders Only GENERIC EXTERNAL DATA DEPARTMENT Provider, Generic External Data Cardiomyopathy, unspecified type (CMS/HCC) (Primary Dx) Social History Tobacco Use Types Packs/Day Years [...] on file documented as of this encounter Procedures Procedure Name Priority Date/Time Associated Diagnosis Comments GLUCOSE, WHOLE BLOOD Routine 03/16/2024 8:05 AM EST STRESS TEST WITH MYOCARDIAL PERFUSION Routine 03/15/2024 10:33 AM EST documented in this encounter Results * (ABNORMAL) Glucose, Whole Blood (03/16/2024 8:05 AM EST) Glucose, Whole Blood 175(H) 60 - 115 mg/dL [facility] Comment:METER #: [id number] 5Testing performed in the Endocrinology Department [address] , [address], [facility]. 03/16/2024 8:05 AM EST 03/16/2024 8:09 AM EST us Generic External Data Provider LAB BLOOD ORDERAB LES Final Result Performing Organization Address City/State/[facility] Co de Phone Number [facility] [address] [place] [phone] * Stress test with myocardial perfusion (03/15/2024 10:33 AM EST) 03/15/2024 10:3 3 AM EST Narrative [facility] - 03/18/2024 1:31 PM EST ? [facility] ?[address] ?[place] [address] ?Nuclear Medicine Report ? Signed ? Patient: Zhang Elan,Abraham ?MR#: [id number] ?? [id number] ? : 1965 ?Acct:[id number] ? Age/Sex: 58 / M ?ADM Date: 01/09/25 ? Loc: HO.CARD ? Attending Dr: Lashae BECKER ? Ordering Physician: Lashae Landon ?? Date of Service: 03/15/24 ?? Procedure(s): NM cardiolite stress test ?? Accession Number(s): [id number] ? cc: Hillary Zamora MD; Lashae Landon ? Lexiscan Myocardial perfusion study ? Indication: ?? Chest pain, shortness of breath, atrial fibrillation ? Technique: ? The patient was brought in for a Lexiscan perfusion study on 03/15/2024 ?? and was injected 0.4 mg of Lexiscan intravenously. Within a minute of ?? this injection 30 mCi of sestamibi was given intravenously. Images were ?? obtained using the SPECT gamma camera interlaced with the gating ?? device. Images were obtained in supine position. ? Resting perfusion study was performed on 03/16/2024. Patient was ?? administered 30 mCi of sestamibi intravenously at rest. Images were ?? then obtained in supine position. Total DLP 123 mGy-cm. ? Images were processed with the software and compared side to side in ?? short axis, horizontal long axis and vertical long axis views. ? Findings: ? Raw aquisition reviewed. Arms by the patient's side. There is a ?? subdiaphragmatic tracer uptake during stress and rest. ? The stress perfusion study showed ??decreased tracer uptake along the ?? inferior wall, more so towards the apex. There is improvement with CT ?? attenuation correction suggestive of diaphragmatic attenuation ?? artifact. The gated study shows normal LV systolic function with ?? calculated LVEF of 57%. LV cavity is normal in size. The gated study ?? shows normal ??wall thickening and contraction of segments. ? Resting study shows no significant perfusion abnormality. Inferior wall ?? assessment suboptimal due to subdiaphragmatic tracer uptake. Gating at ?? rest reveals normal wall motion with ejection fraction at 47%. ? The findings are consistent with no clear reversal or fixed perfusion ?? defects. ? NM/NM cardiolite stress test ?? Impression: ? 1. ??Myocardial perfusion imaging study shows no clear evidence of ?? ischemia or infarction. Inferior wall assessment suboptimal due to ?? subdiaphragmatic tracer uptake. ?? 2. ??Gated LVEF is 57% during stress and 47% during rest. ?? 3. Transient ischemic dilatation not present. ? EKG component of the test reported separately. ? Electronically signed by: ??Matias Marcelino MD ??03/18/2024 01:28 ?? PM EST RP ? Dictated By: ?Matias Marcelino MD ? Signed By: ?<Electronically signed by Matias Marcelino MD in OV> ?03/18/24 1328 ? DD/ 1033 ? TD/TT: 03/16/24 1115 ? [employer]: ? Procedure Note Donriteshter, Image - 03/18/2024 [place] [address] Nuclear Medicine Report Signed Patient: Vicente AnsariStephonilioMR#: [id number] : 1965Acct:[id number] Age/Sex: 58 / MADM Date: 03/15/24 Loc: [facility] Attending Dr: Lashae BECKER Ordering Physician: Lashae Landon Date of Service: 03/15/24 Procedure(s): NM cardiolite stress test Accession Number(s): [id number] cc: Hillary Zamora MD; Lashae Landon Lexiscan Myocardial perfusion study Indication: Chest pain, shortness of breath, atrial fibrillation Technique: The patient was brought in for a Lexiscan perfusion study on 03/15/2024 and was injected 0.4 mg of Lexiscan intravenously. Within a minute of this injection 30 mCi of sestamibi was given intravenously. Images were obtained using the SPECT gamma camera interlaced with the gating device. Images were obtained in supine position. Resting perfusion study was performed on 03/16/2024. Patient was administered 30 mCi of sestamibi intravenously at rest. Images were then obtained in supine position. Total DLP 123 mGy-cm. Images were processed with the software and compared side to side in short axis, horizontal long axis and vertical long axis views. Findings: Raw aquisition reviewed. Arms by the patient's side. There is a subdiaphragmatic tracer uptake during stress and rest. The stress perfusion study showed decreased tracer uptake along the inferior wall, more so towards the apex. There is improvement with CT attenuation correction suggestive of diaphragmatic attenuation artifact. The gated study shows normal LV systolic function with calculated LVEF of 57%. LV cavity is normal in size. The gated study shows normal wall thickening and contraction of segments. Resting study shows no significant perfusion abnormality. Inferior wall assessment suboptimal due to subdiaphragmatic tracer uptake. Gating at rest reveals normal wall motion with ejection fraction at 47%. The findings are consistent with no clear reversal or fixed perfusion defects. NM/OH cardiolite stress test Impression: 1. Myocardial perfusion imaging study shows no clear evidence of ischemia or infarction. Inferior wall assessment suboptimal due to subdiaphragmatic tracer uptake. 2. Gated LVEF is 57% during stress and 47% during rest. 3. Transient ischemic dilatation not present. EKG component of the test reported separately. Electronically signed by: Matias Marcelino MD 03/18/2024 01:28 PM [facility] Dictated By: Matias Marcelino MD Signed By: <Electronically signed by Matias Marcelino MD inOV> 03/18/24 1328 DD/ 1033 TD/TT: 03/16/24 1115 [employer]: [facility] External Provider CV STRE SS PROCEDURES Edited Result - Final [facility] [address] [place] [phone] documented in this encounter Visit Diagnoses Diagnosis Cardiomyopathy, unspecified type (CMS/HCC)- Primary documented in this encounter Additional Health Concerns Assessment Noted Time PHQ-9 Depression Total Score: 0 05/25/19 24 10:32 AM EDT documented as of this encounter Care Teams Asset Protection Agent Relationship Specialty Start Date End Date Hillary Zamora MD [address] [place] [phone] PCP - General Family Medicine 03/07/18 documented as of this encounter
--- OUTSIDE RECORDS SUMMARY | 2024-04-05 17:24 | XMS_ITS | Encounter Summary ---
Author Organization [employer] Address [address] [facility] [address] [place] [address] Care Team Providers Care Special Weapons Unit Officer Name Role Phone Hillary Zamora MD Primary Care Provider +1- [phone] Encounter Details Date Type Department Care Team (Late st Contact Info) Description 03/15/2024 Orders Only GENERIC EXTERNAL DATA DEPARTMENT Provider, Generic External Data Social History Tobacco Use Types Packs/Day Years [...] your housing situation today? I have j luisnba jacobs 12/22/[address] you [...] Procedure Name Priority Date/Time Associated Diagnosis Comments TESTOSTERONE, FREE (DIALYSIS) AND TOTAL,MS Routine 03/15/2024 7:10 AM EST documented in this encounter Results * Testosterone, Free (Dialysis) And Total, MS (03/15/2024 7:10 AM EST) Testosterone, Total 445 250 - 1100 ng/dL [facility] Comment:For additional infor alvina, please refer [email or web address]/faq/[email or web address](This link is being provided for informational/educational purposes only.)This test was developed and its analytical performancecharacteristics have been determined by [place]. It hasnot been cleared or approved by the U.S. Food and DrugAdministration. This assay has been validated pursuantto the CLIA regulations and is used for clinicalpurposes. Testosterone, Free 36.0 35.0 - 155.0 pg/mL [facility] Comment:This test was develo ped and its analytical performancecharacteristics have been determined by [place] [place]. It hasnot been cleared or approved by the U.S. Food and DrugAdministration. This assay has been validated pursuantto the CLIA regulations and is used for clinicalpurposes.THIS TEST WAS PERFORMED AT:[employer] [id number] [place] [address]ZOBGCCYANDREY QUIJANO MD,PHD 03/15/2024 7:10 AM EST 03/15/2024 7:10 AM EST us Generic External Data Provider LAB BLOOD ORDERAB LES Final Result [facility] [address] [place] [phone] documented in this encounter Visit Diagnoses Not on filedocumented in this encounter Additional Health Concerns Assessment Noted Time PHQ-9 Depression Total Score: 0 05/25/19 24 10:32 AM EDT documented as of this encounter Care Teams Special Weapons Unit Officer Relationship Specialty Start Date End Date Hillary Zamora MD [address] [place] [phone] PCP - General Family Medicine 03/07/18 documented as of this encounter
--- OUTSIDE RECORDS SUMMARY | 2024-04-05 17:24 | XMS_ITS | Encounter Summary ---
Author Organization [employer] Address [address] [place] [address] Care Team Providers Care Vat Tender Name Role Phone [place], Hillary ONTIVEROS Primary Care Provider [phone] Orlando Warner MD Unavailable [phone] Reason for Visit * Reason Comments Diabetic Eye Exam Encounter Details Date Type Department Care Team (Late st Contact Info) Description 03/21/2024 11:00 AM EST Office Visit [facility] OPTOMETRY [address] [place] [address] Hang, Meri, OD [address] [place] [address] Diabetes type 2, no ocular involvement (CMS/HCC) (Primary Dx); Choroidal nevus of right eye; Pseudophakia of both eyes; Presbyopia Social History Tobacco Use Types Packs/Day Years [...] AM EDT documented as of this encounter Progress Notes * Meri Mauricio, OD - 03/21/2024 11:00 AM EST Eye Care Progress Note Patient ID: Abraham Zhang is a 58 y.o. male. Chief Complaint Diabetic Eye Exam HPI Here for a diabetic eye exam. He has Type II IDDM. His last HbA1c was 9.2% on 03/16/2024. He is followed by Dr. Warner at [facility] Endocrinology. He is also here to monitor a choroidal nevus in the right eye. presents for JANA. Today the patient reports good vision with his current distance glasses, but complains of blur at near with his reading glasses. He denies any other ocular complaints. His last eye exam was here on 04/02/2022. Last edited by Meri Mauricio, OD on 04/05/2024 3:28 PM. Current Outpatient Medications Medication Sig Dispense Refill Mounjaro 2.5 MG/0.5ML solution auto-injector INJECT ONE PEN (=2.5MG) SUBCUTANEOUSLY ONCE A WEEK DIRECTED tamsulosin (Flomax) 0.4 MG 24 hr capsule Trulicity 4.5 MG/0.5ML solution auto-injector INJECT ONE PEN (= 4.5MG) SUBCUTANEOUSLY ONCE A WEEK DIRECTED acetaminophen (Tylenol) 500 MG tablet Take 2 tablets (1,000 mg) by mouth every 6 (six) hours if needed for moderate pain or fever for up to 25 doses. 40 tablet 0 Alcohol Swabs (Alcohol Prep) 70 % pads USE DIRECTED TWICE DAILY 100 each 11 atorvastatin (Lipitor) 80 MG tablet Take 1 tablet (80 mg) by mouth at bedtime. 90 tablet 3 Bisacodyl EC 5 MG EC tablet TAKE 4 TABLETS BY MOUTH AT NOON THE DAY BEFORE YOUR COLONOSCOPY Blood Glucose Monitoring Suppl (FreeStyle Lite) w/Device kit 1 kit 6 (six) times a day. 1 kit 0 cholecalciferol (Vitamin D-3) 50 MCG (2000 UT) capsule Take 1 capsule by mouth in the morning. cyclobenzaprine (Flexeril) 5 MG tablet TAKE 1 TABLET ORALLY 3 TIMES A DAY NEEDED FOR MUSCLE SPASM FOR 7 DAYS dabigatran etexilate (Pradaxa) 150 MG capsule TAKE 1 CAPSULE BY MOUTH TWICE DAILY IN THE MORNING AND IN THE EVENING 60 capsule 5 divalproex (Depakote) 500 MG EC tablet TAKE 1 TABLET BY MOUTH EVERY MORNING and TAKE 2 TABLETS EVERY DAY AT BEDTIME empagliflozin (Jardiance) 25 MG Take 1 tablet by mouth in the morning. ezetimibe (Zetia) 10 MG tablet TAKE 1 TABLET BY MOUTH EVERY MORNING GAS RELIEF 125 MG capsule TAKE 2 CAPSULES BY MOUTH AT NOON THE DAY BEFORE YOUR COLONOSCOPY, AND TAKE TAKE 2 CAPSULES ONCE hecho WITH COLONOSCOPY PREPARATION glucose blood (FREESTYLE LITE) test strip TEST BLOOD SUGAR SIX TIMES DAILY DIRECTED 200 strip 11 HumuLIN R U-500 KWIKPEN 500 UNIT/ML CONCENTRATED injection INJECT 80 UNITS SUBCUTANEOUSLY TWICE DAILY insulin regular (HumuLIN R U-500 KWIKPEN) 500 UNIT/ML CONCENTRATED injection 80 Units. ketorolac (Acular) 0.5 % ophthalmic solution INSTILL 1 DROP IN AFFECTED EYE(S) THREE TIMES DAILY, START 2 DAYS BEFORE SURGERY, TAPER DOWN DIRECTED lidocaine (Lidoderm) 5 % patch APPLY 1 PATCH TOPICALLY TO SKIN, LEAVE ON FOR 12 HOURS AND OFF FOR 12 HOURS DIRECTED. APPLY TO MOST PAINFUL AREA. lisinopril 5 MG tablet Take 5 mg by mouth. melatonin 5 MG tablet TAKE 2 TABLETS BY MOUTH EVERY DAY AT BEDTIME NEEDED omeprazole (PriLOSEC) [address] capsule TAKE 1 CAPSULE BY MOUTH EVERY MORNING NEEDED 90 capsule 0 omeprazole (PriLOSEC) [address] capsule Take 1 capsule (40 mg) by mouth before breakfast. 90 capsule3 PEG [id number]-NaSulf (PEG-3350/Electrolytes) 236 g reconstituted solution MIX BOTTLE WITHWATER DIRECTED, THEN DRINK 8 OUNCES BY MOUTH EVERY 10 MINUTES UNTIL FECAL EFFLUENT IS CLEAR, FOLLOWING indicaciones de OFFICE de GI sotalol (Betapace) 80 MG tablet Take 120 mg by mouth. TRUEplus Lancets 33G misc TEST BLOOD SUGAR FOUR TIMES DAILY No current facility-administered medications for this visit. Past Medical History: Diagnosis Date Choroidal nevus, right eye Dental calculus 06/15/2023 Diabetes mellitus (CMS/HCC) Dry eyes Gingival bleeding 06/15/2023 Hematochezia 05/07/2013 Hyperkalemia Hypertension Midline low back pain without sciatica, unspecified chronicity Missing teeth, acquired 06/15/2023 Non-ischemic cardiomyopathy (CMS/HCC) Obesity CLAUDIA (obstructive sleep apnea) Paroxysmal atrial fibrillation (CMS/HCC) Periodontal disease Precordial pain Tremor Past Surgical History: Procedure Laterality Date CATARACT EXTRACTION Family History Problem Relation Name Age of Onset Alzheimer's disease Mother Diabetes Mother Colon cancer Father Prostate cancer Father Diabetes Father Colon cancer Other Prostate cancer Other Social History Socioeconomic History Marital status: Single Spouse name: Not on file Number of children: Not on file Years of education: Not on file Highest education level: Not on file Occupational History Not on file Tobacco Use Smoking status: Former Types: Cigarettes Smokeless tobacco: Never Vaping Use Vaping status: Not on file Substance and Sexual Activity Alcohol use: Never Drug use: Never Sexual activity: Defer Other Topics Concern Not on file Social History Narrative Not on file Social Drivers of Health Food Insecurity: Low Risk (12/22/2022) Food Insecurity Within the past 12 months, you worried that your food would run out before you got money to buy more:: Never True Within the past 12 months,the food you bought just didn't last and you didn't have enough money to get more: : Never True Transportation Needs: Low Risk (12/22/2022) Transportation In the past 12 months, has lack of transportation kept you from medical appts, meetings, work or from getting things needed for daily living? : No Intimate Partner Violence: Not on file Housing Stability: Low Risk (12/22/2022) Housing Stability What is your housing situation today?: I have housing Think about the place you live. Do you have problems with any of the following? : None of the above Allergies Allergen Reactions Metformin Penicillins ROS Positive for: Eyes Negative for: Constitutional, Gastrointestinal, Neurological, Skin, Genitourinary, Musculoskeletal,HENT, Endocrine, Cardiovascular, Respiratory, Psychiatric, Allergic/Imm, Heme/Lymph Last edited by Clau Torres on 03/21/2024 9:40 AM. Base Eye Exam Visual Acuity (Snellen - Last rx in phoropter) Right Left Dist cc 20/20-2 20/70+2 Correction: Glasses Tonometry ([facility] , 9:54 AM) Right Left Pressure 12 13 Pupils Pupils APD Right PERRL None Left PERRL None Visual Montoya (Counting fingers) Left Right Full Full Extraocular Movement Right Left Full Full Neuro/Psych Oriented x3: Yes Mood/Affect: Normal Dilation 1% Tropicamide @ 9:55 AM Slit Lamp and Fundus Exam External Exam Right Left External Normal Normal Slit Lamp Exam Right Left Lids/Lashes Normal Normal Conjunctiva/Sclera White and quiet White and quiet Cornea Temporal CE scar Temporal CE scar Anterior Chamber Deep and quiet Deep and quiet Iris Flat, no NVI Flat, no NVI Lens PCIOL, 1+ PCO superotemporally PCIOL clear and centered Fundus Exam Right Left Vitreous Clear PVD Disc [place] and Distinct, no NVD [place] and Distinct, no NVD C/D Ratio Vertical 0.30 0.30 C/D Ratio Horizontal 0.40 0.30 Macula Flat and Intact, no CSME Flat and Intact, no CSME Vessels Normal Normal Periphery 1/4DD flat choroidal nevus without drusen or lipofuscin nasal to ONH, No holes/breaks/tears 360 degrees, no NVE No holes/breaks/tears 360 degrees, no NVE Refraction Wearing Rx Sphere Cylinder [place] Add Right +1.00 -1.75 115 +2.25 Left -2.00 -0.50 180 +2.25 Manifest Refraction Sphere Cylinder [place] Dist VA Add Near VA Right +0.75 -1.25 115 20/20 +2.25 Left +0.25 -0.75 025 20/20 +2.25 20/20 Near VA Both: 20/20 Trial framed rx in clinic. Patient appreciates improvement in vision. Final Rx Sphere Cylinder [place] Dist VA Add Right +0.75 -1.25 115 20/20 +2.25 Left +0.25 -0.75 025 20/20 +2.25 Expiration Date: 03/21/2026 Assessment/plan: Diagnoses and all orders for this visit: Diabetes type 2, no ocular involvement ([facility]) There is no diabetic retinopathy or macular edema present today in either eye. The patient was educated on the exam findings. The patient was educated to continue controlling blood glucose levels through diet, exercise and medication. The patient was educated on potential complications of diabetic retinopathy, including blindness, if left untreated. The patient was educated on the importance of an annual diabetic eye exam to monitor for diabetic retinopathy. A summary of today's dilated eye exam results will be communicated to the patient's PCP through the shared patient problem list in [facility].Will monitor in 1 year. 2. Choroidal nevus of right eye Stable to previous exam findings. He was educated that the lesion still appears benign and small atthis time. He was educated that less than 2% of choroidal nevi can metastasize to melanoma over time. He was educated that annual exams are important to monitor for any changes in the appearance or size of the nevus as melanoma is sight and life-threatening. Will monitor in 1 year. - Fundus Photos - OD - Right Eye 3. Pseudophakia of both eyes Implants centered and clear centrally. No treatment necessary. Will monitor at his next exam. 4. Presbyopia Glasses prescription updated and given. Will monitor at the patient's next full eye exam. Meri Mauricio, OD 04/05/2024, 3:39 PM Student Name: Clau oTrres I attest that I was physically present with the optometry student. I personally saw and evaluated the patient and performed my own history and examination. I have reviewed, verified, and revised the documented findings as necessary and agree with the content and plan as written. Engine Lathe Set Up Operator Tool Source: _x__ None ___ Bilingual Staff ___ Qualified Staff Wood Science Professor ___ Telephone Engine Lathe Set Up Operator Tool; ID# ___ Engine Lathe Set Up Operator Tool brought by patient (family member, friend, SALES OPERATIONS MANAGER, etc) ___ In person diplomatic interpreter/translator ___ Ipad Engine Lathe Set Up Operator Tool; ID#: Language Spoken During Exam: ___English documented in this encounter Miscellaneous Notes * Addendum Note - Meri Mauricio, OD - 03/21/2024 11:00 AM ESTAddended by: MERI MAURICIO on: 04/05/2024 03:39 PM Modules accepted: Orders documented in this encounter Plan of Treatment Not on file documented as of this encounter Procedures Procedure Name Priority Date/Time Associated Diagnosis Comments FUNDUS PHOTOS - OD - RIGHT EYE Routine 03/21/2024 11:00 AM EST Choroidal nevus of right eye documented in this encounter Results * Fundus Photos - OD - Right Eye (03/21/2024 11:00 AM EST) Narrative Meri Mauricio, OD - 04/05/2024 3:34 PM EST Progression has been stable. Disc findings include normal observations. Macula findings include normal observations. Vessel findings include normal observations. Periphery findings include (1/4DD flat choroidal nevus, no drusen or lipofuscin). Notes Interpretation and Plan: Small flat choroidal nevus in the right eye. Monitor in 1 year. 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
--- OUTSIDE RECORDS SUMMARY | 2024-04-05 17:25 | XMS_ITS | Encounter Summary ---
Author Organization [facility] Address [address] [place] [address] Care Team Providers Care Coverage Specialist Rn Name Role Phone Hillary Zamora MD Primary Care Provider [phone] Orlando Warner MD Unavailable [phone] Encounter Details Date Type Department Care Team (Latest Contact Info) Description 12/23/[address] [facility] CONVERSIONS Dental, Provider, DDS Social History Tobacco Use Types Packs/Day Years Used Date Smoking Tobacco: Never Assessed Sex and Gender Information Value Date Recorded Sex Assigned at Male 01/04/2022 10:19 AM EDT Legal Sex Male 10:19 AM EDT Gender Identity Male 01/04/2022 10:19 AM EDT Sexual Orientation Choose not to disclose 2021 10:19 AM EDT documented as of this encounter Plan of Treatment Not on file documented as of this encounter Visit Diagnoses Not on filedocumented in this encounter Care Teams Coverage Specialist Rn Relationship Specialty Start Date End Date Hillary Zamora MD [address] [place] [id number] PCP - General Family Medicine 03/07/18 Orlando Warner MD [address] [place] [address] Endocrinology 03/29/24 Teetee Zacarias ENGINEERED WOOD DESIGNER Endocrinology 03/29/24 documented as of this encounter
--- OUTSIDE RECORDS SUMMARY | 2024-04-05 17:25 | XMS_ITS | Clinical Summary ---
Author Organization [employer] Address [address] [place] [address] Care Team Providers Care Field Examiner Name Role Phone Hillary Zamora MD Primary Care Provider [phone] Orlando Warner MD Unavailable [phone] Allergies Active Allergy Reactions Criticality Noted Date Comments Metformin 05/25/2018 Penicillins 10/20/2012 Medications divalproex (Depakote) 500 MG EC tablet TAKE 1 TABLET BY MOUTH EVERY MORNING and TAKE 2 TABLETS EVERY DAY AT BEDTIME Active ezetimibe (Zetia) 10 MG tablet TAKE 1 TABLET BY MOUTH EVERY MORNING Active HumuLIN R U-500 KWIKPEN 500 UNIT/ML CONCENTRATED injection INJECT 80 UNITS SUBCUTANEOUSLY TWICE DAILY Active TRUEplus Lancets 33G misc TEST BLOOD SUGAR FOUR TIMES DAILY Active melatonin 5 MG tablet TAKE 2 TABLETS BY MOUTH EVERY DAY AT BEDTIME NEEDED Active Blood Glucose Monitoring Suppl (FreeStyle Lite) w/Device kitIndications:T ype 2 diabetes mellitus with hyperglycemia, with long-term current use of insulin ([facility]) 1 kit 6 (six) times a day. 1 kit 023 Active empagliflozin (Jardiance) 25 MG Take 1 tablet by mouth in the morning. Active lidocaine (Lidoderm) 5 % patch APPLY 1 PATCH TOPICALLY TO SKIN, LEAVE ON FOR 12 HOURS AND OFF FOR 12 HOURS DIRECTED. APPLY TO MOST PAINFUL AREA. Active ketorolac (Acular) 0.5 % ophthalmic solution INSTILL 1 DROP IN AFFECTED EYE(S) THREE TIMES DAILY, START 2 DAYS BEFORE SURGERY, TAPER DOWN DIRECTED Active cholecalciferol (Vitamin D-3) 50 MCG (2000 UT) capsule Take 1 capsule by mouth in the morning. Active acetaminophen (Tylenol) 500 MG tablet Take 2 tablets (1,000 mg) by mouth every 6 (six) hours if needed for moderate pain or fever for up to 25 doses. 40 tablet 024 Active omeprazole (PriLOSEC) [address] capsuleIndicatio ns:Gastroesophag eal reflux disease, unspecified whether esophagitis present TAKE 1 CAPSULE BY MOUTH EVERY MORNING NEEDED 90 capsule 024 Active Bisacodyl EC 5 MG EC tablet TAKE 4 TABLETS BY MOUTH AT NOON THE DAY BEFORE YOUR COLONOSCOPY Active cyclobenzaprine (Flexeril) 5 MG tablet TAKE 1 TABLET ORALLY 3 TIMES A DAY NEEDED FOR MUSCLE SPASM FOR 7 DAYS Active lisinopril 5 MG tablet Take 5 mg by mouth. 023 Active PEG 3329-[id number]-YoYvu-N aCl-NaSulf (PEG-3350/Electr olytes) 236 g reconstituted solution MIX BOTTLE WITH WATER DIRECTED, THEN DRINK 8 OUNCES BY MOUTH EVERY 10 MINUTES UNTIL FECAL EFFLUENT IS CLEAR, FOLLOWING indicaciones de OFFICE de GI Active GAS RELIEF 125 MG capsule TAKE 2 CAPSULES BY MOUTH AT NOON THE DAY BEFORE YOUR COLONOSCOPY, AND TAKE TAKE 2 CAPSULES ONCE hecho WITH COLONOSCOPY PREPARATION Active insulin regular (HumuLIN R U-500 KWIKPEN) 500 UNIT/ML CONCENTRATED injection 80 Units. 024 Active sotalol (Betapace) 80 MG tablet Take 120 mg by mouth. 023 Active omeprazole (PriLOSEC) [address] capsuleIndicatio ns:Gastroesophag eal reflux disease, unspecified whether esophagitis present Take 1 capsule (40 mg) by mouth before breakfast. 90 capsule 3 024 Active atorvastatin (Lipitor) 80 MG tabletIndication s:Type 2 diabetes mellitus with hyperosmolarity, uncontrolled (CMS/HCC),Dyslip idemia Take 1 tablet (80 mg) by mouth at bedtime. 90 tablet 3 024 Active glucose blood (FREESTYLE LITE) test stripIndications :Type 2 diabetes mellitus with hyperglycemia, with long-term current use of insulin (CMS/HCC) TEST BLOOD SUGAR SIX TIMES DAILY DIRECTED 200 strip 11 024 Active dabigatran etexilate (Pradaxa) 150 MG capsuleIndicatio ns:Chronic atrial fibrillation (CMS/HCC) TAKE 1 CAPSULE BY MOUTH TWICE DAILY IN THE MORNING AND IN THE EVENING 60 capsule 5 024 Active Alcohol Swabs (Alcohol Prep) 70 % pads USE DIRECTED TWICE DAILY 100 each 11 025 Active Trulicity 4.5 MG/0.5ML solution auto-injector INJECT ONE PEN (= 4.5MG) SUBCUTANEOUSLY ONCE A WEEK DIRECTED 024 Active Mounjaro 2.5 MG/0.5ML solution auto-injector INJECT ONE PEN (=2.5MG) SUBCUTANEOUSLY ONCE A WEEK DIRECTED 025 Active tamsulosin (Flomax) 0.4 MG 24 hr capsule 025 Active Trulicity 4.5 MG/0.5ML solution pen-injector INJECT ONE PEN (= 4.5 MG) SUBCUTANEOUSLY ONCE A WEEK DIRECTED 022 2024 Discontinued(T herapy completed) Alcohol Swabs (Alcohol Prep) 70 % pads USE DIRECTED TWICE DAILY 100 each 11 023 2024 Discontinued baclofen (Lioresal) 10 MG tablet TAKE 1 TABLET BY MOUTH AT BEDTIME NEEDED FOR MUSCLE SPASMS 2022 Discontinued dulaglutide (Trulicity) 1.5 MG/0.5ML solution pen-injector Inject 1.5 mg under the skin. 018 2024 Discontinued(T herapy completed) Active Problems Patient Care Coordination No te Formatting of this note migh t be different from the original. [facility] Mobile Director Of Employer Services: Lizz, member services number [phone], provider services line, , option 4 Pile Driver Engineer Agency: [facility] Problem Noted Date Diagnosed Date Bone spur 09/15/2023 Urinary incontinence 09/02/2023 Overview (09/02/2023): -referral to urology done 08/31/23 Assessment & Plan (09/02/2023 10:18 AM EDT): -referral to urology done 08/31/23 Positive colorectal cancer screening using Colog uard test 09/02/2023 Overview (12/08/2023): -Cologuard was positive on 02/07/2023 -he was referred to GI. Cardiac clearance was needed prior to procedure -he is scheduled to see the dietetic assistant September 07, 2023 -he is scheduled for colonoscopy in December -he continues to lose significant amounts of weight. -he is on a GLP-1, and once he is cleared by cardiology, we will call to see if we can get his colon cancer screening expedited due to his weight loss -he currently reports today, 08/31/23, his weight is 260 pounds. That's relatively stable as his weight was 263 pounds on May 25, 2023 -preop with cardiology 12/08/23 hypertension ordered NM cardiolite stress test, echo transthoracic complete Assessment & Plan (09/02/2023 10:22 AM EDT): -Cologuard was positive on 02/07/2023 -he was referred to GI. Cardiac clearance was needed prior to procedure -he is scheduled to see the dietetic assistant September 07, 2023 -he is scheduled for colonoscopy in December -he continues to lose significant amounts of weight. -he is on a GLP-1, and once he is cleared by cardiology, we will call to see if we can get his colon cancer screening expedited due to his weight loss -he currently reports today, 08/31/23, his weight is 260 pounds. That's relatively stable as his weight was 263 pounds on May 25, 2023 Urinary hesitancy 09/02/2023 Overview (12/02/2023): -seen by [facility] 10/27/23 -tamulsosin 0.4 started 10/27/23 and PSA ordered -US renal Unremarkable renal ultrasound 12/01/2023 Class 2 severe obesity due t o excess calories with serious comorbidity and body mass index (BMI) of 35.0 to 35.9 in adult 09/02/2023 Memory change 08/31/2023 Overview (09/02/2023): -patient will see the nurses for mini mental status exam Assessment & Plan (09/02/2023 10:19 AM EDT): -patient will see the nurses for mini mental status exam Dental calculus 08/26/2023 Cardiac risk counseling 08/04/2023 Overview (08/04/2023): Calculated 08/04/23 The ASCVD Risk score (Deidra BUSTAMANTE, et al., 2019) failed to calculate for the following reasons: The valid total cholesterol range is 130 to 320 mg/dL Lab Results Component Value Date LDLCHOL 79 09/03/2021 -Tobacco cessation: not applicable -Statin therapy: atorvastatin 80 -Importance of moderate physical activity and nutrition interventions discussed. Generalized gingival recession, moderate 024 Periodontal disease 05/26/2023 Foot pain, bilateral 05/25/2023 Chronic anticoagulation 05/12/2023 Chronic low back pain 05/12/2023 Overview (05/25/2023): MRI 05/11/23 1. 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 If future surgery or a percutaneous procedure is contemplated, recommend correlation with plain film evaluation in order to ensure correct enumeration. 2. Moderate central canal stenosis due to spondylosis at the L3-L4 level with moderate to severe thecal sac distortion. 3. Posterior subluxation and disc bulge with facet arthropathy at the L4-L5 level resulting in severe central canal stenosis and thecal sac compression. Mass effect upon the L5 nerve roots in the subarticular zones. Moderate to severe foraminal narrowing with distortion of the exiting L4 nerve roots. 4. Posterior subluxation and disc bulge with facet arthropathy at the L5-S1 level resulting in severe central canal stenosis and thecal sac compression. Severe foraminal narrowing with bulging disc and osseous spurring impressing upon the exiting L5 nerve roots bilaterally. -Patient is currently in physical therapy Assessment & Plan (05/25/2023 10:42 AM EDT): MRI 05/11/23 1. 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 If future surgery or a percutaneous procedure is contemplated, recommend correlation with plain film evaluation in order to ensure correct enumeration. 2. Moderate central canal stenosis due to spondylosis at the L3-L4 level with moderate to severe thecal sac distortion. 3. Posterior subluxation and disc bulge with facet arthropathy at the L4-L5 level resulting in severe central canal stenosis and thecal sac compression. Mass effect upon the L5 nerve roots in the subarticular zones. Moderate to severe foraminal narrowing with distortion of the exiting L4 nerve roots. 4. Posterior subluxation and disc bulge with facet arthropathy at the L5-S1 level resulting in severe central canal stenosis and thecal sac compression. Severe foraminal narrowing with bulging disc and osseous spurring impressing upon the exiting L5 nerve roots bilaterally. 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 He has failed Multaq, flecainide, amiodarone and and three ablations, first in 2014. -Holter 10/25/19 Underlying rhythm shows both sinus as well as atrial fibrillation (69%)Average ventricular rate 99/min; About 46% of the time, ventricular rate >100/min; Occasional supraventricular ectopy; Overall, significant amounts of atrial fibrillation and also with suboptimal rate control. -He was referred back to retail marketing specialist 01/2021 -Pt seen cardiology 10/[address] Marcelino. Pt had recurrent flutter and an echo was order as well as a 3 day holter monitor. Pt f/u with cardiology in 12/2021, holter monitor had a baseline of atrial fibrillation, average heart rate of 103bpm. Echo showed EF 50-60% -Pt seen cardiology on 09/09/2022. Dr. Jones would like Pt to continue sotalol and follow up in 4 weeks. Cardiology visit showed on going Afib, he was taken off sotalol and started on metoprolol and digoxin. He then had a fourth ablation 08/18/2022, restarted on sotalol 120mg BID and was seen in ER on 09/04/2022 with recurrent Afib. His diltiazem and digoxin was discontinued. -Followed by Dr. Matias Marcelino of [facility] -Saw Evonne Gillespie NP 01/21/2023 -continue Sotolol 120 mg 2 tablets BID. -continue Pradaxa Assessment & Plan (09/02/2023 10:23 AM EDT): Pt with atrial flutter/fibrillation suspected to be left atrial origin. He has failed Multaq, flecainide, amiodarone and and three ablations, first in 2014. -Holter 10/25/19 Underlying rhythm shows both sinus as well as atrial fibrillation (69%)Average ventricular rate 99/min; About 46% of the time, ventricular rate >100/min; Occasional supraventricular ectopy; Overall, significant amounts of atrial fibrillation and also with suboptimal rate control. -He was referred back to retail marketing specialist 01/2021 -Pt seen cardiology 10/[address] Marcelino. Pt had recurrent flutter and an echo was order as well as a 3 day holter monitor. Pt f/u with cardiology in 12/2021, holter monitor had a baseline of atrial fibrillation, average heart rate of 103bpm. Echo showed EF 50-60% -Pt seen cardiology on 09/09/2022. Dr. Jones would like Pt to continue sotalol and follow up in 4 weeks. Cardiology visit showed on going Afib, he was taken off sotalol and started on metoprolol and digoxin. He then had a fourth ablation 08/18/2022, restarted on sotalol 120mg BID and was seen in ER on 09/04/2022 with recurrent Afib. His diltiazem and digoxin was discontinued. -Followed by Dr. Matias Marcelino of [facility] -Saw Evonne Gillespie NP 01/21/2023 -continue Sotolol 120 mg 2 tablets BID. -continue Pradaxa Assessment & Plan (05/25/2023 10:44 AM EDT): Pt with atrial flutter/fibrillation suspected to be left atrial origin. He has failed Multaq, flecainide, amiodarone and and three ablations, first in 2014. -Holter 10/25/19 Underlying rhythm shows both sinus as well as atrial fibrillation (69%)Average ventricular rate 99/min; About 46% of the time, ventricular rate >100/min; Occasional supraventricular ectopy; Overall, significant amounts of atrial fibrillation and also with suboptimal rate control. -He was referred back to retail marketing specialist 01/2021 -Pt seen cardiology 10/[address] Marcelino. Pt had recurrent flutter and an echo was order as well as a 3 day holter monitor. Pt f/u with cardiology in 12/2021, holter monitor had a baseline of atrial fibrillation, average heart rate of 103bpm. Echo showed EF 50-60% -Pt seen cardiology on 09/09/2022. Dr. Jones would like Pt to continue sotalol and follow up in 4 weeks. Cardiology visit showed on going Afib, he was taken off sotalol and started on metoprolol and digoxin. He then had a fourth ablation 08/18/2022, restarted on sotalol 120mg BID and was seen in ER on 09/04/2022 with recurrent Afib. His diltiazem and digoxin was discontinued. -Followed by Dr. Matias Marcelino of [facility] -Saw Evonne Gillespie NP 01/21/2023 -continue Sotolol 120 mg 2 tablets BID. -continue Pradaxa Assessment & Plan (01/24/2023 12:05 PM EST): Pt with atrial flutter/fibrillation suspected to be left atrial origin. He has failed Multaq, flecainide, amiodarone and and three ablations, first in 2014. -Holter 10/25/19 Underlying rhythm shows both sinus as well as atrial fibrillation (69%)Average ventricular rate 99/min; About 46% of the time, ventricular rate >100/min; Occasional supraventricular ectopy; Overall, significant amounts of atrial fibrillation and also with suboptimal rate control. -He was referred back to retail marketing specialist 01/2021 -Pt seen cardiology 10/[address] Marcelino. Pt had recurrent flutter and an echo was order as well as a 3 day holter monitor. Pt f/u with cardiology in 12/2021, holter monitor had a baseline of atrial fibrillation, average heart rate of 103bpm. Echo showed EF 50-60% -Pt seen cardiology on 09/09/2022. Dr. Jones would like Pt to continue sotalol and follow up in 4 weeks. Cardiology visit showed on going Afib, he was taken off sotalol and started on metoprolol and digoxin. He then had a fourth ablation 08/18/2022, restarted on sotalol 120mg BID and was seen in ER on 09/04/2022 with recurrent Afib. His diltiazem and digoxin was discontinued. -Followed by Dr. Matias Marcelino of [facility] -Saw Evonne Gillespie NP 01/21/2023 -continue Sotolol 120 mg 2 tablets BID. -continue Pradaxa Assessment & Plan (10/14/2022 9:52 AM EDT): Pt with atrial flutter/fibrillation suspected to be left atrial origin. He has failed Multaq, flecainide, amiodarone and and three ablations, first in 2014. -continue Sotolol 120 mg 2 tablets BID. -continue Pradaxa Followed by cardiology, Dr. Marcelino, last visit 01/2021 Holter 10/25/19 Underlying rhythm shows both sinus as well as atrial fibrillation (69%)Average ventricular rate 99/min; About 46% of the time, ventricular rate >100/min; Occasional supraventricular ectopy; Overall, significant amounts of atrial fibrillation and also with suboptimal rate control. Pt has been asymptomatic. He was referred back to retail marketing specialist 01/2021 He is awaiting a new sleep study. Saw cardiology Dr. Marcelino 07/22/21. Spoke with DR. Arellano, he may benefit from ambulation verse pace maker placement. Pt seen cardiology 10/[address] Marcelino. Pt had recurrent flutter and an echo was order as well as a 3 day holter monitor. Pt f/u with cardiology in 12/2021, holter monitor had a baseline of atrial fibrillation, average heart rate of 103bpm. Echo showed EF 50-60% Pt seen cardiology on 09/09/2022. Dr. Jones would like Pt to continue sotalol and follow up in 4 weeks. Pt has undergone ablation 3 times in the past, he has been on anti-arrhythmics including amiodarone and sotalol. Cardiology visit showed on going Afib, he was taken off sotalol and started on metoprolol and digoxin. He then had a fourth ablation 08/18/2022, restarted on sotalol 120mg BID and was seen in ER on 09/04/2022 with recurrent Afib. Pt is on pradaxa for anticoagulation. His diltiazem and digoxin was discontinued. Preventative health care 10/13/2022 Overview (01/24/2023): -next physical exam due after 01/25/2024 -eye care facilitated by James Vernon last seen 06/22/2022 -dental home is Assessment & Plan (09/02/2023 10:25 AM EDT): -next physical exam due after 01/25/2024 -eye care facilitated by James Vernon last seen 06/22/2022 -dental home is Assessment & Plan (05/25/2023 10:43 AM EDT): -next physical exam due after 01/25/2024 -eye care facilitated by James Vernon last seen 06/22/2022 -dental home is Assessment & Plan (01/24/2023 11:01 AM EST): -next physical exam due after 01/25/2024 -eye care facilitated by James Vernon last seen 06/22/2022 -dental home is Lower extremity edema 08/18/2022 Assessment & Plan (08/18/2022 12:02 PM EDT): 1 + pitting edema in both extremities likely in setting of diltiazem use last echo in chart 12/2021: ef 50-60%, Moderate increase LV wall thickening ,diastolic dysfunction indeterminate -continue to f with dietetic assistant Cardiomyopathy 03/29/2022 Overview (03/19/2024): Possibly due to atrial fib. Pt is already on Sotolol. Pressure is too low for ORLIN or ARB but orlin on list so referral to pharmacy for med rec Last LVEF 50-55% 03/2019 Cardiac cath 2013 no significant CAD, stress MIBI 2017 unremarkable. Pt is euvolemic so no requirements for diuretics. Stress test with Lashae Dipesh 03/15/24 Myocardial perfusion imaging study shows no clear evidence of ischemia or infarction. Inferior wall assessment suboptimal due to subdiaphragmatic tracer uptake. Gated LVEF is 57% during stress and 47% during rest. Transient ischemic dilatation not present. EKG component of the test reported separately. Assessment & Plan (09/02/2023 10:23 AM EDT): Possibly due to atrial fib. Pt is already on Sotolol. Pressure is too low for ORLIN or ARB but orlin on list so referral to pharmacy for med rec Last LVEF 50-55% 03/2019 Cardiac cath 2013 no significant CAD, stress MIBI 2017 unremarkable. Pt is euvolemic so no requirements for diuretics. Assessment & Plan (01/24/2023 12:10 PM EST): Possibly due to atrial fib. Pt is already on Sotolol. Pressure is too low for ORLIN or ARB but orlin on list so referral to pharmacy for med rec Last LVEF 50-55% 03/2019 Cardiac cath 2013 no significant CAD, stress MIBI 2017 unremarkable. Pt is euvolemic so no requirements for diuretics. Assessment & Plan (10/14/2022 9:09 AM EDT): Possibly due to atrial fib. Pt is already on Sotolol. Pressure is too low for ORLIN or ARB but orlin on list so referral to pharmacy for med rec Last LVEF 50-55% 03/2019 Cardiac cath 2012 no significant CAD, stress MIBI 2016 unremarkable. Pt is euvolemic so no requirements for diuretics. Prolonged QT interval 03/29/2022 Tremor 03/29/2022 Overview (10/14/2022): Changed primidone from 50mg to 100mg bid for his worsening tremor. If that doesn't work he will call neuro for f/u. Assessment & Plan (01/24/2023 9:36 AM EST): Changed primidone from 50mg to 100mg bid for his worsening tremor. If that doesn't work he will call neuro for f/u. Assessment & Plan (10/14/2022 9:10 AM EDT): Changed primidone from 50mg to 100mg bid for his worsening tremor. If that doesn't work he will call neuro for f/u. Assessment & Plan (08/18/2022 11:54 AM EDT): I checked today with pharmacy and pt has all meds refilled except for his primidone-per pt pharmacy received refuse refill by neuro because needs to follow up 1st -I advised pt to schedule apt w neurologist Plantar fasciitis 08/17/2017 Mild intermittent asthma 12/06/2016 Insomnia 05/11/2012 Arthritis of right acromioclavicular joint 01/09 Depressive disorder 01/10/2012 Type 2 diabetes mellitus with hyperosmolarity, u ncontrolled 01/10/2012 Overview (03/29/2024): Diabetes is not controlled. Followed by [facility] / Packer, Dr. Warner -has Dexacom GCM Lab Results Component Value Date HGBA1C 9.7 (A) 05/25/2023 HGBA1C 9.1 (A) 01/24/2023 HGBA1C 8.9 (A) 08/18/2022 - Lab Results Component Value Date CREATININE 0.81 10/14/2022 EGFR >60 10/14/2022 MICROALBCREU 12.7 10/14/2022 MICROALBCREU TNP 04/06/2022 LDLCHOLCAL 77 10/14/2022 -Orlin/Arb: lisinopril 5mg -Statin therapy: atorvastatin 80mg -Diabetic eye exam: at [facility] with Gopal Madhavi 06/22/2022 -Continue lifestyle modifications -Followed by Dr. Warner crankshaft balancer -continue Jardiance 25 daily -continue humulin R U 500 0 units tid Note from Endo 02/06/25 Humulin U500 breakfast 55 units take 80 units if over 200 Supper 55 units take 70 if over 200 Change Trulicity to Mounjaro Continue Jardiance Assessment & Plan (09/02/2023 10:24 AM EDT): Diabetes is not controlled. Followed by Picker / Packer, Dr. Warner -has Dexacom GCM Lab Results Component Value Date HGBA1C 9.7 (A) 05/25/2023 HGBA1C 9.1 (A) 01/24/2023 HGBA1C 8.9 (A) 08/18/2022 - Lab Results Component Value Date CREATININE 0.81 10/14/2022 EGFR >60 10/14/2022 MICROALBCREU 12.7 10/14/2022 MICROALBCREU TNP 04/06/2022 LDLCHOLCAL 77 10/14/2022 -Orlin/Arb: lisinopril 5mg -Statin therapy: atorvastatin 80mg -Diabetic eye exam: at [facility] with Gopal Williamsony 06/22/2022 -Diabetic foot exam: -Continue lifestyle modifications -Continue current medications -Followed by Dr. Warner crankshaft balancer -continue Trulicity 4.5mg weekly -continue Jardiance 25 daily -continue humulin R U 500 0 units tid Assessment & Plan (05/25/2023 10:47 AM EDT): Diabetes is not controlled. Followed by P[facility] / Packer, Dr. Warner -has Dexacom GCM Lab Results Component Value Date HGBA1C 9.1 (A) 01/24/2023 HGBA1C 8.9 (A) 08/18/2022 Lab Results Component Value Date MICROALBUR 13.0 10/14/2022 CREATININE 0.81 10/14/2022 -Seen by endocrinology on 10/12/2022. No changes made. -Changes: None -Orlin/Arb: lisinopril 5mg -Statin therapy: atorvastatin 80mg -Diabetic eye exam: at [facility] with Gopal Williamsony 06/22/2022 -Diabetic foot exam: -Continue lifestyle modifications -Continue current medications -Followed by Dr. Warner crankshaft balancer -continue Trulicity 4.5mg weekly -continue Jardiance 25 daily -Continue humulin R U 500 0 units tid Assessment & Plan (01/24/2023 12:08 PM EST): Diabetes is not controlled. Followed by Picker / Packer, Dr. Warner -has Dexacom GCM Lab Results Component Value Date HGBA1C 9.1 (A) 01/24/2023 HGBA1C 8.9 (A) 08/18/2022 Lab Results Component Value Date MICROALBUR 13.0 10/14/2022 CREATININE 0.81 10/14/2022 -Seen by endocrinology on 10/12/2022. No changes made. -Changes: None -Orlin/Arb: lisinopril 5mg -Statin therapy: atorvastatin 80mg -Diabetic eye exam: at [facility] with Gopal Hendrickson 06/22/2022 -Diabetic foot exam: -Continue lifestyle modifications -Continue current medications -Followed by Dr. Warner crankshaft balancer -continue Trulicity 4.5mg weekly -continue Jardiance 25 daily -Continue humulin R U 500 0 units tid Assessment & Plan (10/14/2022 9:45 AM EDT): Diabetes is controlled. - Lab Results Component Value Date HGBA1C 8.9 (A) 08/18/2022 -No results found for: POCA1C - Lab Results Component Value Date MICROALBUR <5.0 04/06/2022 CREATININE 0.88 09/04/2022 -Seen by endocrinology on 10/12/2022. No changes made. -Changes: None -Orlin/Arb: -Statin therapy: -Diabetic eye exam: -Diabetic foot exam: -Continue lifestyle modifications -Continue current medications Dyslipidemia 01/10/2012 Overview (08/04/2023): Lab Results Component Value Date CHOLESTEROL 148 09/03/2021 LDLCHOL 79 09/03/2021 TRIG 96 10/14/2022 TRIG 68 04/06/2022 HDLCHOL 34 (L) 09/03/2021 CHOLHDLRAT 4.4 09/03/2021 -continue lifestyle modifications -continue atorvastatin 80mg Assessment & Plan (09/02/2023 10:24 AM EDT): Lab Results Component Value Date CHOLESTEROL 148 09/03/2021 LDLCHOL 79 09/03/2021 TRIG 96 10/14/2022 TRIG 68 04/06/2022 HDLCHOL 34 (L) 09/03/2021 CHOLHDLRAT 4.4 09/03/2021 -continue lifestyle modifications -continue atorvastatin 80mg Assessment & Plan (05/25/2023 10:47 AM EDT): Lab Results Component Value Date CHOLESTEROL 148 09/03/2021 LDLCHOL 79 09/03/2021 TRIG 96 10/14/2022 TRIG 68 04/06/2022 HDLCHOL 34 (L) 09/03/2021 CHOLHDLRAT 4.4 09/03/2021 -continue lifestyle modifications Assessment & Plan (01/24/2023 9:34 AM EST): Lab Results Component Value Date TRIG 96 10/14/2022 CHOL 128 10/14/2022 LDLCHOLCAL 77 10/14/2022 HDL 32 10/14/2022 -continue lifestyle modifications Assessment & Plan (10/14/2022 9:06 AM EDT): Lab Results Component Value Date CHOLESTEROL 148 09/03/2021 LDLCHOL 79 09/03/2021 TRIG 68 04/06/2022 HDLCHOL 34 (L) 09/03/2021 CHOLHDLRAT 4.4 09/03/2021 -continue lifestyle modifications Hypertension 01/10/2012 Overview (10/14/2022): -Blood pressure is at goal -Continue lifestyle modifications -Continue current medications Assessment & Plan (09/02/2023 10:23 AM EDT): -Blood pressure is at goal -Continue lifestyle modifications -Continue current medications Assessment & Plan (05/25/2023 10:44 AM EDT): -Blood pressure is at goal -Continue lifestyle modifications -Continue current medications Assessment & Plan (01/24/2023 9:35 AM EST): -Blood pressure is at goal -Continue lifestyle modifications -Continue current medications Assessment & Plan (10/14/2022 9:07 AM EDT): -Blood pressure is at goal -Continue lifestyle modifications -Continue current medications Lateral epicondylitis 01/10/2012 Morbid obesity 01/10/2012 Multiple joint pain 01/10/2012 Obstructive sleep apnea syndrome 01/10/2012 Overview (01/24/2023): Does not tolerate CPAP-pt willing to be evaluated again by sleep med and check how can improve use of machine ,explained importance to pt for tx -Will try to refer in [facility] 01/24/2023 Assessment & Plan (09/02/2023 10:22 AM EDT): Does not tolerate CPAP-pt willing to be evaluated again by sleep med and check how can improve use of machine ,explained importance to pt for tx -Will try to refer in [facility] 01/24/2023 Assessment & Plan (01/24/2023 11:12 AM EST): Does not tolerate CPAP-pt willing to be evaluated again by sleep med and check how can improve use of machine ,explained importance to pt for tx -Will try to refer in [facility] 01/24/2023 Assessment & Plan (08/18/2022 12:01 PM EDT): Does not tolerate CPAP-pt willing to be evaluated again by sleep med and check how can improve use of machine ,explained importance to pt for tx -referred today to sleep med Trochanteric bursitis of right hip 01/10/2012 Resolved Problems Problem Noted Date Diagnosed Date Resolved Date Dietary counseling 09/02/2023 Exercise counseling 09/02/2023 12/02/19 Dental calculus 06/15/2023 08/05/2023 Missing teeth, acquired 06/15/2023 053 03/2023 Gingival bleeding 06/15/2023 08/05/2023 Colon cancer screening 01/24/202308/30 Overview (01/24/2023): pt agrees to do cologuard, instructuons given 01/24/2023 Assessment & Plan (01/24/2023 11:09 AM EST): pt agrees to do cologuard, instructuons given 01/24/2023 Ingrown toenail 01/24/2023 08/29/2023 Overview (01/24/2023): Will come back with me next available Assessment & Plan (01/24/2023 11:14 AM EST): Will come back with me next available Preop examination 08/18/2022 10/13/2022 Assessment & Plan (08/18/2022 11:53 AM EDT): RCR is 1 going x low risk procedure -cataract surgery under MAC However pt currently with cardiac symptoms likely from uncontrolled AF with plan to have cardiac ablation in 2 days -08/20/2022 -from recent labs in 07/23/2022 had chem with normal electrolytes and normal cr ,hb also normal , today hb1ac is 8.9-per pt improving following w crankshaft balancer -last echo in chart 12/2021: ef 50-60%, Moderate increase LV wall thickening ,diastolic dysfunction indeterminate -stress test 2017: Pharmacological stress test with Lexiscan injection, while walking on Treadmill: without EKG changes meeting criteria for ischemia. -patient is cleared from DM and rest of comorbidities stand point of view and with otherwise normal recent labs however pt needs to have 1st cardiac ablation and after it, clearance from his dietetic assistant prior to have eye surgery --I will have this note fax to his eye doctor today -if pt is cleared from his dietetic assistant then pt will need to hold on pradaxa the morning of procedure unless indicated differently by his dietetic assistant,hold as well PO meds in am of procedure and to use half insuline basal insuline at night prior surgery. Also pt will need to check with his dietetic assistant if prior eye surgery will need to hold digoxin and diltiazem if meds are going to be continued after ablation. -I called today as well to his dietetic assistant at # [phone] at [facility] and left my phone info to get a call back to discuss with dietetic assistant, I also inform pt to discuss w his dietetic assistant at his upcoming visit in 2 days about need for cardiac clearance and recommendations for cardiac medications Precordial pain 03/29/2022 01/24/2023 Overview (10/14/2022): lvef 57% July [address] Marcelino 07/22/21 Cardiac cath 2012 no significant CAD and stress mibi 2017 was unremarkable currently not active. Assessment & Plan (01/24/2023 9:35 AM EST): lvef 57% July [address] Marcelino 07/22/21 Cardiac cath 2013 no significant CAD and stress mibi 2017 was unremarkable currently not active. Assessment & Plan (10/14/2022 9:10 AM EDT): lvef 57% July [address] Marcelino 07/22/21 Cardiac cath 2013 no significant CAD and stress mibi 2017 was unremarkable currently not active. Hematochezia 05/07/2013 08/05/2023 Asthma 01/10/2012 10/13/2022 Encounters Date Type Department Care Team Description 03/28/2024 Refill [facility] [address] [place] [address] Hillary Zamora MD 03/21/2024 11:00 AM EST Office Visit [facility] [address] [place] [address] Hang, Meri, OD Diabetes type 2, no ocular involvement (CMS/HCC) (Primary Dx); Choroidal nevus of right eye; Pseudophakia of both eyes; Presbyopia 03/21/2024 Travel 03/16/2024 Orders Only GENERIC EXTERNAL DATA DEPARTMENT Provider, Generic External Data Cardiomyopathy, unspecified type ([facility]) (Primary Dx) 03/15/2024 Orders Only GENERIC EXTERNAL DATA DEPARTMENT Provider, Generic External Data 02/23/2024 Telephone [facility] [address] [place] [phone] Matty Pickard MA DME from [facility] 02/22/2024 Telephone [facility] [address] [place] [address] Matty Pickard MA DME from Home Care Delivered 02/18/[address] [address] Hillary Zamora MD Chronic atrial fibrillation ([facility]) 02/08/[address] [address] Rosa Ren MA Durable Medical Equipment 01/20/2024 Telephone [facility] [address] [place] [address] Sheri Rivera MA chart prep 01/12/[address] [address] Hillary Zamora MD Nurse Triage from Last 3 Months Immunizations Name Administration Dates Next Due Hep B, adult 01/20/2022,12/15/2018,02/16/2017 Influenza Injectable Quadriv alant Preservative Free IIV4 MDCK 12/26/2019 Influenza injectable quadriv alent IIV4 with preservative 12/29/2017,02/16/2017 Influenza injectable quadriv alent preservative free 01/20/2022,12/15/2018 Influenza, IIV3, injectable 12/01/2009 Moderna Covid-19 Vaccine 12+ 01/10/2021,06/05/19 21,05/07/2020 Moderna Covid-19 Vaccine 6+ Bivalent 04/02/2022 Pneumococcal Conjugate PCV 20 10/14/2022 Pneumococcal Polysaccharide PPSV23 07/17/2014, Tdap 07/17/2014,09/30/2009 Zoster, Recombinant 10/14/2022,03/15/2020 Family History Medical History Relation Name Comments Colon cancer Father Diabetes Father Prostate cancer Father Alzheimer's disease Mother Diabetes Mother Colon cancer Other Prostate cancer Other Relation Name Status Comments Father Maternal Grandfather Alive Mother Other Social History Tobacco Use Types Packs/Day Years [...] not to disclose 2021 10:19 AM EDT Last Filed Vital Signs Vital Sign Reading Time Taken Comments Blood Pressure 132/86 09/15/2023 11:02 AM EDT Pulse 94 09/15/2023 11:02 AM EDT Temperature 37.2 ??C (98.9 ??F) 05/25/2023 10:30 AM E DT Respiratory Rate 20 05/25/2023 10:30 AM EDT Oxygen Saturation 98% 05/25/2023 10:30 AM EDT Inhaled Oxygen Concentration - - Weight 120 kg (263 lb 12.8 oz) 05/25/2023 10:30 AM EDT Height 182.9 cm (6') 05/25/2023 10:30 AM EDT Body Mass Index 35.78 05/25/2023 10:30 AM EDT Plan of Treatment Health Maintenance Due Date Last Done Comments CT Colonography 1965 Colonoscopy 1965 FIT 1965 FOBT 1965 Sigmoidoscopy 1965 Alcohol/Substance Use Screening 1975 SDOH Screening 08/19/2023 08/18/2022 Diabetes: Hemoglobin A1C 08/25/2023 024, 01/24/2023, 08/18/2022, Additional history exists RSV Patients and Patients Aged 60 years or older (1 - Risk 60-74 years 1-dose series) 2023 Lipid Panel 10/15/2023 10/14/2022, 03/09, 09/03/2021, Additional history exists COVID-19 Vaccine ( season) 2023 04/02/2022, 01/10/2021, 06/04/2020, Additional history exists Influenza Vaccine (#1) 2023 , 12/26/2019, 12/15/2018, Additional history exists Dental Oral Exam 12/14/2023 06/13/2023 Dental Prophylaxis 12/16/2023 06/15/2023 Diabetes: Foot Exam 01/25/2024 01/24/2023, 01/24/2023, 01/24/2023 Colorectal Cancer Screening 02/08/2024 FIT DNA/Cologuard 02/08/2024 02/07/2023 Depression Screening 05/24/2024 05/25/2023, 05/25/19 Dental X-Ray: Bitewings 06/13/2024 06/13/2023 DTaP/Tdap/Td Vaccines (3 - Td or Tdap) 07/17/2024 07/17/2014, 09/30/2009 Diabetes: Urine Protein Screening 12/06/2024 12/07/2023, 10/14/2022, 04/06/2022, Additional history exists Tobacco Screening 04/05/2025 04/05/2024 Eye Exam 03/21/2026 03/21/2024, 03/07, 03/21/2024, Additional history exists Dental X-Ray: Full Mouth 06/13/2026 06/13/2023 Hepatitis B Vaccines Completed 01/20/2022, 12/15/2018, 02/16/2017 HIV Screening Completed 10/14/2022 Hepatitis C Screening Completed 10/14/2022 Pneumococcal Vaccine: 50+ Years Completed 10/14/2022, 07/17/2014, 09/30/2009 Zoster Vaccines Completed 10/14/2022, 03/15/2020 HIB Vaccines Aged Out No longer eligi ble based on patient's age to complete this topic HPV Vaccines Aged Out No longer eligi ble based on patient's age to complete this topic Hepatitis A Vaccines Aged Out No long er eligible based on patient's age to complete this topic IPV Vaccines Aged Out No longer eligi ble based on patient's age to complete this topic Meningococcal Vaccine Aged Out No baldomero tamara eligible based on patient's age to complete this topic RSV under 20 months Aged Out No longe r eligible based on patient's age to complete this topic Rotavirus Vaccines Aged Out No longer eligible based on patient's age to complete this topic Procedures Procedure Name Priority Date/Time Associated Diagnosis Comments FUNDUS PHOTOS - OD - RIGHT EYE Routine 03/21/2024 11:00 AM EST Choroidal nevus of right eye GLUCOSE, WHOLE BLOOD Routine 03/16/2024 8:05 AM EST STRESS TEST WITH MYOCARDIAL PERFUSION Routine 03/15/2024 10:33 AM EST TESTOSTERONE, FREE (DIALYSIS) AND TOTAL,MS Routine 03/15/2024 7:10 AM EST ALBUMIN, RANDOM URINE W/CREATININE Routine 12/07/2023 8:25 AM EDT PROPHYLAXIS - ADULT Routine 06/15/2023 1 :00 PM EDT Generalized gingival recession, moderate Gingival bleeding Periodontal disease Dental calculus DIAGNOSTIC - DIAGNOSTIC IMAGING - INTRAORAL - COMPREHENSIVE SERIES OF RADIOGRAPHIC IMAGES Routine 06/13/2023 10:00 AM EDT PERIODIC ORAL EVALUATION - ESTABLISHED PATIENT Routine 06/13/2023 10:00 AM EDT POCT GLYCOSYLATED HEMOGLOBIN (HGB A1C) Routine 05/25/2023 2:21 PM EDT Type 2 diabetes mellitus with hyperglycemia, with long-term current use of insulin ([facility]) LAB COLOGUARD?? COLON CANCER SCREEN Routine 02/07/2023 7:30 AM EST Colon cancer screening HEPATITIS C ANTIBODY REFLEX Routine 10/14/2022 11:04 AM EDT HIV ANTIBODY/ANTIGEN ([place] D[facility]) Routine 10/14/2022 11:04 AM EDT LIPID PANEL, STANDARD Routine 10/14/2022 11:04 AM EDT Dyslipidemia HM DIABETES EYE EXAM Routine 06/22/2022 from Last 3 Months or Most Recently Relevant to Health Maintenance Results * Fundus Photos - OD - Right Eye (03/21/2024 11:00 AM EST) Meri Choudhury, OD - 04/05/2024 3:34 PM EST Progression has been stable. Disc findings include normal observations. Macula findings include normal observations. Vessel findings include normal observations. Periphery findings include (1/4DD flat choroidal nevus, no drusen or lipofuscin). Notes Interpretation and Plan: Small flat choroidal nevus in the right eye. Monitor in 1 year. us Meri Mauricio OD OPHTH PHOTOGRAPHY Final Resul t * (ABNORMAL) Glucose, Whole Blood (03/16/2024 8:05 AM EST) Glucose, Whole Blood 175(H) 60 - 115 mg/dL [facility] Comment:METER #: [id number] 5Testing performed in the Endocrinology Department [address], [place]. 03/16/2024 8:05 AM EST 03/16/2024 8:09 AM EST us Generic External Data Provider LAB BLOOD ORDERAB LES Final Result [facility] [address] [place] [address] [phone] * Stress test with myocardial perfusion (03/15/2024 10:33 AM EST) 03/15/2024 10:3 3 AM EST Narrative [facility] - 03/18/2024 1:31 PM EST ? [facility] ?[address] ?[place] [address] ?Nuclear Medicine Report ? Signed ? Patient: Zhang Elan,Abraham ?MR#: [id number] ?? [id number] ? : 1965 ?Acct:[id number] ? Age/Sex: 58 / M ?ADM Date: 03/15/24 ? Loc: HO.CARD ? Attending Dr: Lashae BECKER ? Ordering Physician: Lashae Landon ?? Date of Service: 03/15/24 ?? Procedure(s): NM cardiolite stress test ?? Accession Number(s): [id number] ? cc: Hillary Zamora MD; Lashae Landon [...] Marcelino MD ??03/18/2024 01:28 ?? PM EST ? Dictated By: ?Matias Marcelino MD ? Signed By: ?<Electronically signed by Matias Marcelino MD in OV> ?03/18/24 1328 ? DD/ 1033 ? TD/TT: 03/16/24 1115 ? Spar Cap Beveler: ? Procedure Note Kapil, Image - 03/18/[address] [address] Nuclear Medicine Report Signed Patient: Hoang HooverTerrie#: [id number] : 1965Acct:[id number] Age/Sex: 58 / MADM Date: 03/15/24 Loc: [facility] Attending Dr: Lashae BECKER Ordering Physician: Lashae Landon Date of Service: 03/15/24 Procedure(s): MD cardiolite stress test Accession Number(s): [id number] cc: Hillary Zamora MD; Lashae Lnadon Lexiscan Myocardial perfusion study Indication: Chest pain, [...] no clear reversal or fixed perfusion defects. MD/MD cardiolite stress test Impression: 1. Myocardial perfusion imaging study shows no clear evidence of ischemia or infarction. Inferior wall assessment suboptimal due to subdiaphragmatic tracer uptake. 2. Gated LVEF is 57% during stress and 47% during rest. 3. Transient ischemic dilatation not present. EKG component of the test reported separately. Electronically signed by: Matias Marcelino MD 03/18/2024 01:28 PM [facility] [place] Dictated By: Matias Marcelino MD Signed By: <Electronically signed by Matias Marcelino MD inOV> 03/18/24 1328 DD/ 1033 TD/TT: 03/16/24 1115 Spar Cap Beveler: [facility] External Provider CV STRE SS PROCEDURES Edited Result - Final [facility] [address] [place] [address] * Testosterone, Free (Dialysis) And Total, MS (03/15/2024 7:10 AM EST) Testosterone, Total 445 250 - 1100 ng/dL [facility] Comment:For additional infor alvina, please refer tohttp://education.[email or web address]/[email or web address](This link is being provided for informational/educational purposes only.)This test was developed and its analytical performancecharacteristics have been determined by [employer] [place]. It hasnot been cleared or approved by the U.S. Food and DrugAdministration. This assay has been validated pursuantto the CLIA regulations and is used for clinicalpurposes. Testosterone, Free 36.0 35.0 - 155.0 pg/mL [facility] Comment:This test was develo ped and its analytical performancecharacteristics have been determined by [employer] [place]. It hasnot been cleared or approved by the U.S. Food and DrugAdministration. This assay has been validated pursuantto the CLIA regulations and is used for clinicalpurposes.THIS TEST WAS PERFORMED AT:[email or web address] [id number] [place] [address]YWNZEDNANDREY QUIJANO MD,PHD 03/15/2024 7:10 AM EST 03/15/2024 7:10 AM EST Generic External Data Provider LAB BLOOD ORDERAB LES Final Result [facility] [address] [place] [address] [phone] * Albumin, Random Urine W/Creatinine (12/07/2023 8:25 AM EDT) Creatinine, Urine 65.99 mg/dL [facility] Microalbumin Urine <5.0 mg/L [facility] Microalbum Creatinine Ratio Ur TNP <30 ug/mg cr [facility] Comment:Unable to calculate albumin/creatinine ratio due to lowmicroalbumin or creatinine result. 12/07/2023 8:25 AM EDT 12/07/2023 9:37 AM EDT Generic External Data Provider LAB URINE ORDERAB LES Final Result [facility] [address] [place] [address] [phone] * (ABNORMAL) POCT glycosylated hemoglobin (Hgb A1c) (05/25/2023 2:21 PM EDT) Hemoglobin A1C 9.7(A) 4.0 - 6.0 % QC Media Lot # [id number] Lot# Expiration Date [id number] Blood Capillary blood specimen / Unknown 05/25/2023 2:21 PM EDT Hillary Zamora MD POINT OF CARE TEST ENTER/E DIT ORDERABLES Final Result * (ABNORMAL) Cologuard?? colon cancer screening (02/07/2023 7:30 AM EST) Cologuard Result Positive( A) Negative 02/15/2023 9:47 AM EST [facility] (CLIA #:[id number]) Comment: POSITIVE TEST RESULT. A positive Cologuard result should be followed with a colonoscopy or visual examination of the colon. The normal value (reference range) for this assay is negative. TEST DESCRIPTION: Composite algorithmic analysis of stool DNA-biomarkers with hemoglobin immunoassay. ?? Quantitative values of individual biomarkers are not reportable and are not associated with individual biomarker result reference ranges. Cologuard is intended for colorectal cancer screening of adults of either sex, 45 years or older, who are at average-risk for colorectal cancer (CRC). Cologuard has been approved for use by the U.S. FDA. The performance of Cologuard was established in a cross sectional study of average-risk adults aged 50-84. Cologuard performance in patients ages 45 to 49 years was estimated by sub-group analysis of near-age groups. Colonoscopies performed for a positive result may find as the most clinically significant lesion: colorectal cancer [4.0%], advanced adenoma (including sessile serrated polyps greater than or equal to 1cm diameter) [20%] or non- advanced adenoma [31%]; or no colorectal neoplasia [45%]. These estimates are derived from a prospective cross-sectional screening study of 10,000 individuals at average risk for colorectal cancer who were screened with both Cologuard and colonoscopy. (Fabiano Frost. et al, N Engl J Med 2014;370(14):9256-8527.) Cologuard may produce a false negative or false positive result (no colorectal cancer or precancerous polyp present at colonoscopy follow up). A negative Cologuard test result does not guarantee the absence of CRC or advanced adenoma (pre-cancer). The current Cologuard screening interval is every 3 years. ([place] Cancer Society and U.S. Multi-Society Task Force). Cologuard performance data in a 10,000 patient pivotal study using colonoscopy as the reference method can be accessed at the following location: [email or web address].deviantART/results. Additional description of the Cologuard test process, warnings and precautions can be found at www.[employer] Biosciences[employer].com. Stool specimen (specimen) 02/07/2023 7:30 AM EST 02/08/2023 3:13 PM EST us Hillary Zamora MD LAB MOLECULAR DIAGNOSTICS ORDERABLES Final Result [facility] (CLIA #:[id number]) [place] [address], * Hepatitis C Antibody Reflex (10/14/2022 11:04 AM EDT) Hepatitis C Antibody Nonreactive Nonreactive [facility] Comment:Antibodies to HCV no t detected; does not exclude early acuteHCV infection. 10/14/2022 11:0 4 AM EDT 10/14/2022 12:57 PM EDT Hillary Zamora MD LAB BLOOD ORDERABLES Final Result Performing Organization Address [facility] Co de Phone Number [facility] [address] [place] [phone] * HIV Ab/Ag ([facility]) (10/14/2022 11:04 AM EDT) HIV AB/AG Nonreactive Nonreactive [facility] Comment:HIV-1 p24 Ag and/or HIV-1/HIV-2 Ab not detected.A test result that is nonreactive does not exclude thepossibility of exposure to or infection with HIV-1 and/orHIV-2. Nonreactive results in this assay for individualswith prior exposure to HIV-1 and/or HIV-2 may be due toantigen and antibody levels that are below the limit ofdetection of this assay.[employer] HIV Ag/Ab Combo assay result andsupplemental assay results should be interpreted inconjunction with the patient's clinical presentation,history and other laboratory results. If the results areinconsistent with clinical evidence, additional testing issuggested to confirm the result. 10/14/2022 11:0 4 AM EDT 10/14/2022 12:57 PM EDT Hillary Zamora MD LAB BLOOD ORDERABLES Final Result Performing Organization Address [facility] Co de Phone Number [facility] [address] [place] [address] [phone] * Lipid Panel, Standard (10/14/2022 11:04 AM EDT) Triglycerides 96 mg/dL [facility] Comment:Desirable Triglyceri de: less than 150 mg/dLBorderline High Triglyceride 150-199 mg/dLHigh Triglyceride: 200-499 mg/dLVery High Triglyceride: greater than or equal to 5OO mg/dL Cholesterol 128 mg/dL [facility] Comment:Desirable Cholestero l: less than 200 mg/dLBorderline High Cholesterol: 200-239 mg/dLHigh Cholesterol: greater than 239 mg/dL LDL Cholesterol Calculated 77 mg/dl [facility] Comment:Desirable LDL: less than 100 mg/dLNear Optimal/Above Optimal LDL: 110- 129 mg/dLBorderline High LDL: 130-159 mg/dLHigh LDL: 160-189 mg/dLVery High LDL: greater than or equal to 190 mg/dL HDL Cholesterol 32 mg/dL [facility] Comment:Desirable HDL: great er than 40 mg/dL Note: This HDL assay may give artificially low results in patients with liver disease. Blood Venous blood specimen / Unknown 10/14/2022 11:04 AM EDT 10/14/2022 12:57 PM EDT Hillary Zamora MD LAB BLOOD ORDERABLES Final Result [facility] [address] [place] [phone] * Diabetes Eye Exam (06/22/2022) Eye Exam Normal Normal Comment:[facility] Historical Provider HEALTH MAINTENANCE Final Result from Last 3 Months or Most Recently Relevant to Health Maintenance Insurance [facility] Care Teams Field Examiner Relationship Specialty Start Date End Date [place], MD Hillary [address] [place] [address] PCP - General Family Medicine 03/07/18 [address] [place] [phone] Endocrinology 03/29/24 Teetee Zacarias NP Endocrinology 03/29/24
== END 2024-04-05 14:08 | disposition home or self-care (01) ==
PROVIDERS: PCP Family Medicine; Visit Provider Nurse Practitioner Family
DX: R35.1 Nocturia (principal); R39.9 Unspecified symptoms and signs involving the genitourinary system; Z80.42 Family history of malignant neoplasm of prostate; R39.14 Feeling of incomplete bladder emptying; Z13.9 Encounter for screening, unspecified
CPT/HCPCS: 99213

== ENCOUNTER → 2024-04-05 13:32 | Outpatient (BNVA) | payer OTHER, SELFPAY | PROVIDERS: PCP Family Medicine; Visit Provider Nurse Practitioner Family | DX: R35.1 Nocturia (principal); R33.9 Retention of urine, unspecified; R39.14 Feeling of incomplete bladder emptying; Z80.42 Family history of malignant neoplasm of prostate | CPT/HCPCS: 51798; 81003; 99212 ==

== ENCOUNTER 2024-07-18 10:39 | Outpatient (AMB) | payer OTHER, SELFPAY ==
--- NOTE | 2024-07-18 07:45 | A.OFFVIS_ITS ---
Vital Signs 07/18/24 10:51 Height 6 ft Weight 200 lb 9.93 oz BMI 27.2 BP 98/56 L Blood Pressure Location Rt brachial Position Sitting Pulse 79 Pulse Source Pulse Oximeter Pulse Oximetry (%) 96 Oxygen Delivery Method Room Air Intake Visit Reasons: DM Intake Note: Patient presents today for a follow-up on Type 2 Diabetes Mellitus: Patient reports not feeling well Last Diabetic eye exam was on: DUE Last Podiatry exam was on: Patient does not see a Motor Coach Supervisor Most recent HbA1c: 9.3%, 07/18/2024 Random Glucose- 198 mg/dL, Today Builder Beam Required: No Accompanied by: Self / Same As Patient Allergies Penicillins [PENICILLINS] Allergy (Unknown, Verified 07/18/24 12:03) UNKNOWN metformin Adverse Reaction (Unknown, Verified 07/18/24 12:03) diarrhea HPI Comments Details: Patient is 58-year-old male with DM type 2 diagnosed 2006, who presents for management of diabetes. He was last seen 03/15/24 by Teetee Tinajero NP . Hemoglobin A1c 07/18/24 %9.2% 03/16/24 Past medical history: AFIB, CHF, obesity, dyslipidemia, HTN, CLAUDIA on BIPAP, h/o low Vit D, depression, OA.. Micro and macrovascular complications: Nephropathy Patient previously intolerant to metformin. Intolerant of Jardiance due to yeast infection. Actos was stopped few years ago he has mild decrease ejection fraction. Diabetes medications: Humulin U 500 55 units for breakfast 80 units 2 Xa day if >200, Mounjaro 2.5 mg per week not tolerated well - losing wt , Jardiance 25 mg daily. Admits to non-compliance with insulin Dexcom was unable to be downloaded. After viewing the Dexcom on the phone, GMI 8.8 % 14% in range, 53% high,33 % very high, 0% low, 0% very low Symptoms reported: denies numbness, tingling, cramping in lower extremities Hypoglycemia: had some recent hypos in the am -last mo Exercise: not walking as much . 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 No nephropathy 12/07/2023 eGFR>60 7/20 microalbumin 7.0 Ophthalmology evaluation - appt in 03/2024 no retinopathy but cataracts HLD on statin and Zetia no recent lipid profile-pending [facility] Medical History Pre-operative cardiovascular examination Morbid obesity Type 2 diabetes mellitus with unspecified complications Essential hypertension Nonischemic cardiomyopathy Typical atrial flutter Hyperparathyroidism CLAUDIA (obstructive sleep apnea) Vitamin D deficiency Diabetic nephropathy associated with type 2 diabetes mellitus 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 Hypertension Dyslipidemia Obesity Diabetes type 2, uncontrolled Paroxysmal A-fib Surgical History History of radiofrequency ablation procedure for cardiac arrhythmia Hx of colonoscopy Family History Father Cancer Diabetes CVD (cardiovascular disease) Mother Diabetes Social History Household Members: None Household Members Other:: Alcohol intake: never Patient Tobacco Use Status: Former Tobacco user Substance Use Type: Crack/Cocaine and Marijuana Advance Directives: No Advance Directives Information Provided: Yes Current occupational status: disabled Current occupation: left handed Physical Exam Vital Signs: Last Vital Signs Pulse 79 07/18/24 10:51 BP 98/56 L 07/18/24 10:51 Pulse Ox 96 07/18/24 10:51 Oxygen Delivery Method Room Air 07/18/24 10:51 BMI result Body Mass Index 27.2 Repeat blood pressure was 84/60. Absence of Cushingoid features. Absence of acromegalic features. Neck exam reveals nl size thyroid about 15 gms. No thyroid nodules palpable. No carotid bruits present. Lungs CTA. Heart S1 S2, Reg R/R. No M/R/ G. Skin exam reveals absence of vitiligo or acanthosis nigricans. Abd ominal exam reveals Soft NT/ND with NA BS. No organomegaly present. Neck Other: . Extrem Other: Visual exam of foot performed. No ulcerations or open lesions. No onchomycosis, no callouses.Pulses 2 + distally Sensation intact to monofilament exam. Vibratory sensation sensed is i decreased with 128 Hz tuning fork Results AMB Hemoglobin A1c AMB Hemoglobin A1c 9.3 % Last Edit by ANGIE Pollard on 07/18/24 11:15 Results Reviewed Results Reviewed: Laboratory Last Values Glucose (Clinic) 198 mg/dL (60-115) H 07/18/24 10:55 Hgb A1c (Clinic) 9.3 % (4.0-6.0) H 07/18/24 11:14 Assessment & Plan Assessment & Plan (1) Diabetes type 2, uncontrolled: Code(s): E11.65 - Type 2 diabetes mellitus with hyperglycemia Category: Medical Qualifiers: Glycemic state: with hyperglycemia Qualified Code(s): E11.65 - Type 2 diabetes mellitus with hyperglycemia Plan: This is a 58-year-old male with a history of type 2 diabetes being treated with Trulicity, Jardiance and U-500 insulin with glycemic control and known microvascular complications namely nephropathy. Because patient was symptomatic and somewhat hypotensive today, an ambulance was called and patient will be taken to the [place] [facility] room. Once he stabilizes, he was told to hold her Mounjaro and switch back to Trulicity 4.5 mg Q weekly. He was also told to take his insulin more consistently. Otherwise she will follow up with Teetee in 3-4 wks . We will also check a lipid profile Orders: Orders AMB Hemoglobin A1c Today E11.65 - Type 2 diabetes mellitus with hyperglycemia Medications: Refilled dulaglutide (Trulicity) 4.5 mg (0.5 mL) subcut QWEEK 2 mL 5RF E11.8 - Type 2 diabetes mellitus with unspecified complications Discontinued tirzepatide (Mounjaro) Discontinued Reason: Doctor's Order 2.5 mg (0.5 mL) subcut QWEEK 4 weeks 2 mL 1RF Coding Level of Care Code Est Pt Level 4 (07979) Complex EM visit Add On G2211 Diagnoses Uncontrolled type 2 diabetes mellitus with hyperglycemia E11.65 Glycemic state: with hyperglycemia
[2024-07-18 10:51] VITALS: BP 98/56; PULSE 79; O2SAT 96; BMI 27.2
[2024-07-18 11:00] LABS: Glucose, Whole Blood 198 mg/dL (60-115)
--- OUTSIDE RECORDS SUMMARY | 2024-07-18 11:42 | XMS_ITS | Clinical Summary ---
Author Organization [employer] Address [address] [facility] [address] [place] [address] Care Team Providers Care Director Of Guidance Name Role Phone Hillary Zamora MD Primary Care Provider [phone] Orlando Warner MD Unavailable [phone] Layla Marrufo NP Unavailable Meri Mauricio OD Unavailable [phone] Allergies Active Allergy Reactions Criticality Noted Date Comments Metformin 05/25/2018 Penicillins 10/20/2012 Medications * This document contains information received from the source organization and may not represent a complete record from that organization. divalproex (Depakote) 500 MG EC tablet TAKE 1 TABLET BY MOUTH EVERY MORNING and TAKE 2 TABLETS EVERY DAY AT BEDTIME 022 Active HumuLIN R U-500 KWIKPEN 500 UNIT/ML CONCENTRATED injection INJECT 80 UNITS SUBCUTANEOUSLY TWICE DAILY Active melatonin 5 MG tablet TAKE 2 TABLETS BY MOUTH EVERY DAY AT BEDTIME NEEDED Active Blood Glucose Monitoring Suppl (FreeStyle Lite) w/Device kitIndications: Type 2 diabetes mellitus with hyperglycemia, with long-term current use of insulin ([facility]) 1 kit 6 (six) times a day. 1 kit 023 Active lidocaine (Lidoderm) 5 % patch APPLY 1 PATCH TOPICALLY TO SKIN, LEAVE ON FOR 12 HOURS AND OFF FOR 12 HOURS DIRECTED. APPLY TO MOST PAINFUL AREA. Active cholecalciferol (Vitamin D-3) 50 MCG (1999 UT) capsule Take 1 capsule by mouth in the morning. Active omeprazole (PriLOSEC) [address] capsuleIndicati ons:Gastroesoph ageal reflux disease, unspecified whether esophagitis present TAKE 1 CAPSULE BY MOUTH EVERY MORNING NEEDED 90 capsule 024 Active cyclobenzaprine (Flexeril) 5 MG tablet TAKE 1 TABLET ORALLY 3 TIMES A DAY NEEDED FOR MUSCLE SPASM FOR 7 DAYS 024 Active insulin regular (HumuLIN R U-500 KWIKPEN) 500 UNIT/ML CONCENTRATED injection 80 Units. 024 Active omeprazole (PriLOSEC) [address] capsuleIndicati ons:Gastroesoph ageal reflux disease, unspecified whether esophagitis present Take 1 capsule (40 mg) by mouth before breakfast. 90 capsule 3 024 Active atorvastatin (Lipitor) 80 MG tabletIndicatio ns:Type 2 diabetes mellitus with hyperosmolarity , uncontrolled (CMS/HCC),Dysli pidemia Take 1 tablet (80 mg) by mouth at bedtime. 90 tablet 3 024 Active glucose blood (FREESTYLE LITE) test stripIndication s:Type 2 diabetes mellitus with hyperglycemia, with long-term current use of insulin ([facility]) TEST BLOOD SUGAR SIX TIMES DAILY DIRECTED 200 strip 11 024 Active dabigatran etexilate (Pradaxa) 150 MG capsuleIndicati ons:Chronic atrial fibrillation (CMS/HCC) TAKE 1 CAPSULE BY MOUTH TWICE DAILY IN THE MORNING AND IN THE EVENING 60 capsule 5 024 Active empagliflozin (Jardiance) 25 MGIndications:T ype 2 diabetes mellitus with hyperglycemia, with long-term current use of insulin (CMS/HCC) Take by mouth. Activ e sotalol (Betapace) 80 MG tabletIndicatio ns:Chronic atrial fibrillation (CMS/HCC) Take by mouth. Activ e ezetimibe (Zetia) 10 MG tabletIndicatio ns:Dyslipidemia Take 10 mg by mouth Once per day. Active lisinopril 5 MG tabletIndicatio ns:Primary hypertension Take by mouth Once per day. Active Tirzepatide (Mounjaro) 2.5 MG/0.5ML solution auto-injectorIn dications:Type 2 diabetes mellitus with hyperglycemia, with long-term current use of insulin (CMS/HCC) Inject under the skin. Active tamsulosin (Flomax) 0.4 MG 24 hr capsuleIndicati ons:Benign prostatic hyperplasia without lower urinary tract symptoms Take 0.4 mg by mouth Once per day. Active baclofen (Lioresal) 10 MG tablet TAKE 1 TABLET BY MOUTH AT BEDTIME NEEDED FOR MUSCLE SPASMS 2022 Discontinued Active Problems Patient Care Coordination No te Formatting of this note migh t be different from the original. [facility] [place] Porcelain Enamel Repairer: Lizz, member services number [phone], provider services line, , option 4 Bull Driver Agency: [employer] [facility] Problem Noted Date Diagnosed Date Dietary counseling 07/04/2024 Family history of colon cancer 07/04/2024 Bone spur 09/15/2023 Urinary incontinence 09/02/2023 Overview (09/02/2023): -referral to urology done 08/31/23 Assessment & Plan (09/02/2023 10:18 AM EDT): -referral to urology done 08/31/23 Positive colorectal cancer screening using Colog uard test 09/02/2023 Overview (07/04/2024): -Cologuard was positive on 02/07/2023 -he was referred to GI. Cardiac clearance was needed prior to procedure -he is scheduled to see the ointment mill tender September 07, 2023 -he is scheduled for [...] NM cardiolite stress test, echo transthoracic complete -03/18/24 Stress Test IMPRESSION: 1. Myocardial perfusion imaging study shows no clear evidence of ischemia or infarction. Inferior wall assessment suboptimal due to subdiaphragmatic tracer uptake. 2. Gated LVEF is 57% during stress and 47% during rest. 3. Transient ischemic dilatation not present. Assessment & Plan (09/02/2023 10:22 AM EDT): -Cologuard was positive on 02/07/2023 -he was referred to GI. Cardiac clearance was needed prior to procedure -he is scheduled to see the ointment mill tender September 07, 2023 -he is scheduled for [...] May 25, 2023 Urinary hesitancy 09/02/2023 Overview (04/05/2024): -seen by [facility] 10/27/23 -tamulsosin 0.4 started 10/27/23 and PSA ordered -US renal Unremarkable renal ultrasound 12/01/2023 -note from Layla Marrufo NP reviewed 04/05/24 Continue Flomax as discussed and prescribed. Exercise counseling 09/02/2023 Class 2 severe obesity due t o [...] AM EST): Will refer to PT 01/24/2023 Colon cancer screening 01/24/2023 Overview (07/04/2024): 02/05/23 positive cologuard, see details under positive cologuard diagnosis. 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 -He was referred back to master lay out specialist 01/2021 -Pt seen cardiology 10/2021 with [...] discontinued. -Followed by Dr. Matias Marcelino of [facility] -Saw Evonne Gillespie NP [...] rate control. -He was referred back to master lay out specialist 01/2021 -Pt seen cardiology 10/2021 with [...] discontinued. -Followed by Dr. Matias Marcelino of [facility] -Saw Evonne Gillespie NP [...] rate control. -He was referred back to master lay out specialist 01/2021 -Pt seen cardiology 10/2021 with [...] discontinued. -Followed by Dr. Matias Marcelino of [facility] -Saw Evonne Gillespie NP [...] rate control. -He was referred back to master lay out specialist 01/2021 -Pt seen cardiology 10/2021 with [...] discontinued. -Followed by Dr. Matias Marcelino of [facility] -Saw Evonne Gillespie NP [...] been asymptomatic. He was referred back to master lay out specialist 01/2021 He is awaiting a new [...] anticoagulation. His diltiazem and digoxin was discontinued. Other specified health status 10/13/2022 Overview (07/04/2024): -next comprehensive annual evaluation due after 01/25/2024 -eye care facilitated by James Vernon last seen 06/22/2022 -dental home is -hillary care proxy Assessment & Plan (09/02/2023 10:25 AM EDT): [...] ,diastolic dysfunction indeterminate -continue to f with ointment mill tender Cardiomyopathy 03/29/2022 Overview (03/19/2024): Possibly due to [...] (03/29/2024): Diabetes is not controlled. Followed by Supply Crib Attendant, Dr. 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 Followed by Supply Crib Attendant, Dr. 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 Followed by Supply Crib Attendant, Dr. Warner -has Dexacom GCM Lab Results Component Value Date HGBA1C 9.1 (A) 01/24/2023 HGBA1C 8.9 (A) 08/18/2022 Lab Results Component Value Date MICROALBUR 13.0 10/14/2022 CREATININE 0.81 10/14/2022 -Seen by endocrinology on 10/12/2022. No changes made. 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 Followed by Supply Crib Attendant, Dr. Warner -has Dexacom GCM Lab Results Component Value Date HGBA1C 9.1 (A) 01/24/2023 HGBA1C 8.9 (A) 08/18/2022 Lab Results Component Value Date MICROALBUR 13.0 10/14/2022 CREATININE 0.81 10/14/2022 -Seen by endocrinology on 10/12/2022. No changes made. 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 -continue Trulicity 4.5mg weekly -continue Jardiance 25 [...] for tx -Will try to refer in [facility] 01/24/2023 Assessment & Plan (09/02/2023 10:22 AM EDT): Does not tolerate CPAP-pt willing to be evaluated again by sleep med and check how can improve use of machine ,explained importance to pt for tx -Will try to refer in [facility] 01/24/2023 Assessment & Plan (01/24/2023 11:12 AM EST): Does not tolerate CPAP-pt willing to be evaluated again by sleep med and check how can improve use of machine ,explained importance to pt for tx -Will try to refer in [facility] 01/24/2023 Assessment & Plan (08/18/2022 12:01 PM EDT): Does not tolerate CPAP-pt willing to be evaluated again by sleep med and check how can improve use of machine ,explained importance to pt for tx -referred today to sleep med Trochanteric bursitis of right hip 01/10/2012 Resolved Problems Problem Noted Date Diagnosed Date Resolved Date Dietary counseling 09/02/2023 Dental calculus 06/15/2023 08/05/2023 Missing teeth, acquired 06/15/2023 0503/2023 Gingival bleeding 06/15/2023 08/05/2023 Ingrown toenail 01/24/2023 08/29/2023 Overview (01/24/2023): Will [...] hb1ac is 8.9-per pt improving following w casting house laborer -last echo in chart 12/2021: ef 50-60%, [...] ablation and after it, clearance from his ointment mill tender prior to have eye surgery --I will have this note fax to his eye doctor today -if pt is cleared from his ointment mill tender then pt will need to hold on pradaxa the morning of procedure unless indicated differently by his ointment mill tender,hold as well PO meds in am of procedure and to use half insuline basal insuline at night prior surgery. Also pt will need to check with his ointment mill tender if prior eye surgery will need to hold digoxin and diltiazem if meds are going to be continued after ablation. -I called today as well to his ointment mill tender at # [phone] at [facility] and left my phone info to get a call back to discuss with ointment mill tender, I also inform pt to discuss w his ointment mill tender at his upcoming visit in 2 days [...] Hematochezia 05/07/2013 08/05/2023 Asthma 01/10/2012 10/13/2022 Encounters * This document contains information received from the source organization and may not represent a complete record from that organization. Date Type Department Care Team Description 07/18/2024 Orders Only GENERIC EXTERNAL DATA DEPARTMENT Provider, Generic External Data 07/06/2024 Telephone [facility] [address] [place] [phone] Hillary Zamora MD Nurse Triage 07/04/2024 Telephone [facility] [address] [place] [phone] Hillary Zamora MD No Show 06/28/2024 Telephone [facility] [address] [place] [phone] Hillary Zamora MD chartprep 05/09/[address] [address] Hillary Zamora MD OUTREACH from Last 3 Months Immunizations Immunization Administration Dates Next Due Hep B, adult [...] the past 12 months, has t he [employer] gas, oil or water company threatened to [...] 05/25/2023 10:30 AM EDT Plan of Treatment Upcoming Encounters Date Type Department Care Team (Late st Contact Info) Description 09/26/2024 3:00 PM EDT Office Visit [facility] [address] [place] [address] Wade, Raquel [address] [place] [address] Health Maintenance Due Date Last Done Comments [...] patient's age to complete this topic Meningococcal B Vaccine Aged Out No l onger eligible based on patient's age to complete [...] Associated Diagnosis Comments GLUCOSE, WHOLE BLOOD Routine 07/18/2024 10:55 AM EDT ALBUMIN, RANDOM URINE W/CREATININE Routine 12/07/2023 8:25 AM EDT PROPHYLAXIS - ADULT Routine 06/15/2023 1 :00 PM EDT Generalized gingival recession, moderate Gingival bleeding Periodontal disease Dental calculus INTRAORAL - COMPLETE SERIES OF RADIOGRAPHIC IMAGES Routine 06/13/2023 10:00 AM EDT PERIODIC ORAL EVALUATION - ESTABLISHED PATIENT Routine 06/13/2023 10:00 AM EDT POCT GLYCOSYLATED HEMOGLOBIN (HGB A1C) Routine 05/25/2023 2:21 PM EDT Type 2 diabetes mellitus with hyperglycemia, with long-term current use of insulin (CMS/HCC) LAB COLOGUARD?? COLON CANCER SCREEN Routine 02/07/2023 7:30 AM EST Colon cancer screening HEPATITIS C ANTIBODY REFLEX Routine 10/14/2022 11:04 AM EDT HIV ANTIBODY/ANTIGEN ([facility]) Routine 10/14/2022 11:04 AM EDT LIPID PANEL, STANDARD Routine 10/14/2022 11:04 AM EDT Dyslipidemia HM DIABETES EYE EXAM Routine 06/22/2022 from Last 3 Months or Most Recently Relevant to Health Maintenance Results * (ABNORMAL) Glucose, Whole Blood (07/18/2024 10:55 AM EDT) Glucose, Whole Blood 198(H) 60 - 115 mg/dL [facility] Comment:METER #: [id number] 5Testing performed in the Endocrinology Department [address] , [address], [place]. 07/18/2024 10:5 5 AM EDT 07/18/2024 11:00 AM EDT us Generic External Data Provider LAB BLOOD ORDERAB LES Final Result [facility] [address] [place] [address] [phone] * Albumin, Random Urine W/Creatinine (12/07/2023 8:25 AM EDT) Creatinine, Urine 65.99 mg/dL [facility] Microalbumin Urine <5.0 mg/L [facility] Microalbum Creatinine Ratio Ur TNP <30 ug/mg cr [facility] Comment:Unable to calculate albumin/creatinine ratio due to lowmicroalbumin or creatinine result. 12/07/2023 8:25 AM EDT 12/07/2023 9:37 AM EDT [email or web address] External Data Provider LAB URINE ORDERAB LES Final Result [facility] [address] [place] [phone] * (ABNORMAL) POCT glycosylated hemoglobin (Hgb A1c) (05/25/2023 2:21 PM EDT) Hemoglobin A1C 9.7(A) 4.0 - 6.0 % QC Media Lot # [id number] Lot# Expiration Date 324 Blood Capillary blood specimen / Unknown 05/25/2023 2:21 PM EDT Hillary Zamora MD POINT OF CARE TEST ENTER/E DIT ORDERABLES Final Result * (ABNORMAL) Cologuard?? colon cancer screening (02/07/2023 7:30 AM EST) Cologuard Result Positive( A) Negative 02/15/2023 9:47 AM EST [facility] (CLIA #:[id number]) Comment: POSITIVE TEST RESULT. A positive Cologuard [...] screened with both Cologuard and colonoscopy. (Fabiano Benites et al, N Engl J Med 2014;370(14):4662-4812.) Cologuard may produce a false negative or false positive result (no colorectal cancer or precancerous polyp present at colonoscopy follow up). A negative Cologuard test result does not guarantee the absence of CRC or advanced adenoma (pre-cancer). The current Cologuard screening interval is every 3 years. ([place] [employer] Society and U.S. Multi-Society Task Force). Cologuard performance data in a 10,000 patient pivotal study using colonoscopy as the reference method can be accessed at the following location: www.iHealthHome/results. Additional description of the Cologuard test process, warnings and precautions can be found at www.[employer] [employer].com. Stool specimen (specimen) 02/07/2023 7:30 AM EST 02/08/2023 3:13 PM EST Hillary Zamora MD LAB MOLECULAR DIAGNOSTICS ORDERABLES Final Result [facility] (CLIA #:[id number]) [place] [address], [place] [phone] * Hepatitis C Antibody Reflex (10/14/2022 11:04 AM EDT) Hepatitis C Antibody Nonreactive Nonreactive [facility] Comment:Antibodies to HCV no t detected; does not exclude early acuteHCV infection. 10/14/2022 11:0 4 AM EDT 10/14/2022 12:57 PM EDT Hillary Zamora MD LAB BLOOD ORDERABLES Final Result Performing Organization Address [facility] Co de Phone Number [facility] [address] [place] [phone] * HIV Ab/Ag ([facility]) (10/14/2022 11:04 AM EDT) HIV AB/AG Nonreactive Nonreactive [facility] Comment:HIV-1 p24 Ag and/or HIV-1/HIV-2 Ab not detected.A test result that is nonreactive does not exclude thepossibility of exposure to or infection with HIV-1 and/orHIV-2. Nonreactive results in this assay for individualswith prior exposure to HIV-1 and/or HIV-2 may be due toantigen and antibody levels that are below the limit ofdetection of this assay.The [employer] Clinical Neuropsychologist HIV Ag/Ab Combo assay result andsupplemental assay results should be interpreted inconjunction with the patient's clinical presentation,history and other laboratory results. If the results areinconsistent with clinical evidence, additional testing issuggested to confirm the result. 10/14/2022 11:0 4 AM EDT 10/14/2022 12:57 PM EDT Hillary Zamora MD LAB BLOOD ORDERABLES Final Result Performing Organization Address [facility] Co de Phone Number [facility] [address] [place] [phone] [phone] * Lipid Panel, Standard (10/14/2022 11:04 AM EDT) Triglycerides 96 mg/dL [facility] Comment:Desirable Triglyceri de: less than 150 mg/dLBorderline High Triglyceride 150-199 mg/dLHigh Triglyceride: 200-499 mg/dLVery High Triglyceride: greater than or equal to 5OO mg/dL Cholesterol 128 mg/dL [facility] Comment:Desirable Cholestero l: less than 200 mg/dLBorderline High Cholesterol: 200-239 mg/dLHigh Cholesterol: greater than 239 mg/dL LDL Cholesterol Calculated 77 mg/dl [facility] Comment:Desirable LDL: less than 100 mg/dLNear Optimal/Above Optimal LDL: 110- 129 mg/dLBorderline High LDL: 130-159 mg/dLHigh LDL: 160-189 mg/dLVery High LDL: greater than or equal to 190 mg/dL HDL Cholesterol 32 mg/dL [facility] Comment:Desirable HDL: great er than 40 mg/dL Note: This HDL assay may give artificially low results in patients with liver disease. Blood Venous blood specimen / Unknown 10/14/2022 11:04 AM EDT 10/14/2022 12:57 PM EDT Hillary Zamora MD LAB BLOOD ORDERABLES Final Result [facility] [address] [place] [phone] * Diabetes Eye Exam (06/22/2022) Eye Exam Normal Normal Comment:[facility] Historical Provider HEALTH MAINTENANCE Final Result from Last 3 Months or Most Recently Relevant to Health Maintenance Insurance [employer] ONE CARE < 65 D[facility]AL [facility] Care Teams Director Of Guidance Relationship Specialty Start Date End Date [place], [place] Hillary [address] [place] [address] PCP - General Family Medicine 03/07/18 Orlando Warner MD [address] [place] [address] Endocrinology 03/29/24 Layla Marrufo NP [address] [place] [address] Urology 04/05/24 Meri Mauricio OD [address] [place] [phone] Optometry 04/17/24 Teetee Zacarias CREDIT REVIEW ANALYST Endocrinology 03/29/24
--- OUTSIDE RECORDS SUMMARY | 2024-07-18 11:42 | XMS_ITS | Encounter Summary ---
Author Organization [email or web address] [facility] Address [address] [facility] [address] [place] [address] Care Team Providers Care Chief Power Dispatcher Name Role Phone Hillary Zamora MD Primary Care Provider Orlando Warner MD Unavailable Layla Marrufo NP Unavailable HangSandorn OD Unavailable Encounter Details Date Type Department Care Team (Latest Contact Info) Description 12/23/2020 Abstract [facility] CONVERSION[facility] Dental, Provider, DDS Social History [...] as of this encounter Plan of Treatment Upcoming Encounters Date Type Department Care Team (Late st Contact Info) Description 09/26/2024 3:00 PM EDT Office Visit [facility] ADULT DENTAL [address] [place] [address] Wade, Raquel [address] [place] [address] documented as of this encounter Visit Diagnoses Not on filedocumented in this encounter Care Teams Chief Power Dispatcher Relationship Specialty Start Date End Date Hillary Zamora MD [address] [place], [place] [phone] PCP - General Family Medicine 03/07/18 Orlando Warner MD [address] [place] [address] Endocrinology 03/29/24 Layla Marrufo NP [address] [place] [address] Urology 04/05/24 Meri Mauricio OD [address] [place] [phone] Optometry 04/17/24 Teetee Zacarias FITTER'S ASSISTANT Endocrinology 03/29/24 documented as of this encounter
--- OUTSIDE RECORDS SUMMARY | 2024-07-18 11:42 | XMS_ITS | Encounter Summary ---
Author Organization [employer] Address [address] [place] [address] Care Team Providers Care Supervisor [facility]ality House Name Role Phone PickettHillary montejo MD Primary Care Provider [phone] Orlando Warner MD Unavailable [phone] Layla Marrufo NP Unavailable Hang, Meri OD Unavailable [phone] Encounter Details Date Type Department Care Team (Late st Contact Info) Description 07/18/2024 Orders Only GENERIC EXTERNAL DATA [...] Description 09/26/2024 3:00 PM EDT Office Visit [facility] [address] [place] [address] Wade, Raquel [address] [place] [address] documented as of this encounter Procedures Procedure Name Priority Date/Time Associated Diagnosis Comments GLUCOSE, WHOLE BLOOD Routine 07/18/2024 10:55 AM EDT documented in this encounter Results * (ABNORMAL) Glucose, Whole Blood (07/18/2024 10:55 AM EDT) Glucose, Whole Blood 198(H) 60 - 115 mg/dL [facility] Comment:METER #: [id number] 5Testing performed in the Endocrinology Department [address] , [address], [facility]. 07/18/2024 10:5 5 AM EDT 07/18/2024 11:00 AM EDT us Generic External Data Provider LAB BLOOD ORDERAB LES Final Result [facility] [address] [place] [address] [phone] documented in this encounter Visit Diagnoses Not on filedocumented in this encounter Additional Health Concerns Assessment Noted Time PHQ-9 Depression Total Score: 0 05/25/19 24 10:32 AM EDT documented as of this encounter Care Teams Supervisor [facility]ality [facility] Relationship Specialty Start Date End Date Hillary Zamora MD [address] [place] [address] PCP - General Family Medicine 03/07/18 Orlando Warner MD [address] [place] [address] Endocrinology 03/29/24 Layla Marrufo NP [address] [place] [address] Urology 04/05/24 Meri Mauricio OD [address] [place] [id number] Optometry 04/17/24 Teetee Zacarias SHEET MANAGER Endocrinology 03/29/24 documented as of this encounter
--- OUTSIDE RECORDS SUMMARY | 2024-07-18 11:42 | XMS_ITS | Data Portability ---
Author Organization [employer] [facility] Address [address] [place] [address] Care Team Providers Care Efficiency Analyst Name Role Phone [facility] Referring Provider [facility] Referring Provider [phone] Assessment Encounter Date Assessment Date Assessment LastModified by Organization Details LastModified Time 05/14/2022 05/14/2022 I provided real -time medical direction via phone for this encounter, and was available for additional phone based assistance as needed. I have reviewed and agree with the Assessment and Plan as documented by the Concert Or Lecture Hall Manager. Patient given the opportunity to ask questions. [...] he has AFib. during the time the television camera operator was there is heart rate generally stayed [...] As an addendum the patient called his box sorter to clarify his dose. He was supposed to be on metoprolol 50 mg twice a day. Upon further discussion with his box sorter he was referred to the emergency department [...] tablet,exte nded release 24 hr 2022 023 [facility], [address] [place] [address], [phone], 3 13:41:10 Patient TargetsNo targets recorded. Patient InstructionsNo instructions recorded. Reason for Referral None Reported. Medical Equipment None Reported. Allergies Allergen ID Allergen Name Allergen Category Reaction Reaction Severity Criticality Documentation Date Start Date Code Code System Note Provider Name and Address Organization Details Recorded Time 6917 Product containin g penicilli n (product) medicatio n Not available Not available Not available 01/03/2024 73025 8001 SNOMED Not Available [facility] - production 4 03:33:38 Medications Name Sig Start Date Stop [...] 8375 Abena Kent MD Main - [facility] [address] [place] [phone] 05/14/2022 13:19:28 05/17/2022 10:39:10 Atrial fibrillation 62588542 I48.91 Health Concerns Section Related Observation LastModified by Organization Detai ls LastModified Time None Recorded Concern Status LastModified by Organization Details LastModified Time None Recorded Advance Directives Directive None Recorded Payers Insurance Date Sequence Insurance Name Policy Number Policy Patterson Covered Member ID Patterson Member ID Guarantor Name 05/10/2023 1 [facility] - DOS PRIOR TO 2022 - DUAL ELIGIBLE (MEDICARE REPLACEMENT/ADV ANTAGE - HMO) Abraham Vicente Ansari [id number] Abrahamroosevelt Ansari 05/10/2023 1 [facility] - DOS ON OR AFTER 2022 - DUAL ELIGIBLE - PRISON OPTIONS AND ONE CARE (MEDICARE REPLACEMENT/ADV ANTAGE - HMO) Abraham Ansari [id number] Abraham Ansrai Notes Date Note Type Note Provider Name and Address Organization Details Recorded Time 05/14/2022 text/html HPI: ALLERGIC TO: PCN, METFORMIN. Patient with history of Afib with recent med change reporting HR 120's with slight dizziness. Recently seen 05/12/22 with complaints of chest pain [facility] [place] [place] [facility] .................. .................. .................. .................. .................. .................. .................. ............... CRC Nursing Assessment: Comments: CRC RN did not require any additional information to process this visit. Abena Kent MD [address] [place] [address],[address], [place], [phone], [facility] 05/14/2022 13:48:00
--- OUTSIDE RECORDS SUMMARY | 2024-07-18 11:42 | XMS_ITS | Encounter Summary ---
Author Organization [employer] [facility] [employer] Address [address] [place] [address] Care Team Providers Care Epic [facility] Name Role Phone Hillary Zamora MD Primary Care Provider [phone] Orlando Warner MD Unavailable [phone] Layla Marrufo NP Unavailable Meri Mauricio OD Unavailable [phone] Encounter Details Date Type Department Care Team (Late st Contact Info) Description 04/17/2024 Orders Only [facility] [address] [place], [place] [phone] Hillary Zamora MD [address] [place], [place] [phone] Type 2 diabetes mellitus with hyperglycemia, with long-term current use of insulin (CMS/HCC) (Primary Dx); Type 2 diabetes mellitus with hyperosmolarity, uncontrolled (CMS/HCC); Chronic atrial fibrillation (CMS/HCC); Dyslipidemia; Primary hypertension; Benign prostatic hyperplasia without lower urinary tract symptoms Social History Tobacco Use Types Packs/Day Years [...] Description 09/26/2024 3:00 PM EDT Office Visit [facility] [address] [place] [address] Bassam Olveraaris [address] [place] [address] documented as of this encounter Visit Diagnoses Diagnosis Type 2 diabetes mellitus with hyperglycemia, with long-term current use of insulin ([facility])- Primary Type 2 diabetes mellitus with hyperosmolarity, uncontrolled ([facility]) Chronic atrial fibrillation ([facility]) Atrial fibrillation Dyslipidemia Other and unspecified hyperlipidemia Primary hypertension Unspecified essential hypertension Benign prostatic hyperplasia without lower urinary tract symptoms documented in this encounter Additional Health Concerns Assessment Noted Time PHQ-9 Depression Total Score: 0 05/25/19 24 10:32 AM EDT documented as of this encounter Care Teams [employer] Relationship Specialty Start Date End Date Hillary Zamora MD [address] [place] [address] PCP - General Family Medicine 03/07/18 Orlando Warner MD [address] [place] [address] Endocrinology 03/29/24 Layla Marrufo NP [address] [place] [address] Urology 04/05/24 Meri Mauricio OD [address] [place] [phone] Optometry 04/17/24 Teetee Zacarias CARPET FINISHING SUPERVISOR Endocrinology 03/29/24 documented as of this encounter
== END 2024-07-18 11:26 | disposition home or self-care (01) ==
PROVIDERS: PCP Family Medicine; Visit Provider Internal Medicine Endocrinology, Diabetes & Metabolism
DX: E11.65 Type 2 diabetes mellitus with hyperglycemia (principal)

== ENCOUNTER 2024-07-18 11:54 | Emergency (ER) | payer OTHER, SELFPAY ==
[2024-07-18 12:01] VITALS: BP 104/70; PULSE 70; O2SAT 97
[2024-07-18 12:02] VITALS: BP 112/69; PULSE 77; RESP 16; TEMP 36.8; O2SAT 98; BMI 27.9
--- NOTE | 2024-07-18 12:05 | ECG_ITS ---
Test Reason : DIZINESS Blood Pressure : */* mmHG Vent. Rate : 77 BPM Atrial Rate : 77 BPM P-R Int : 194 ms QRS Dur : 90 ms QT Int : 404 ms P-R-T Axes : 60 -18 18 degrees QTcB Int : 457 ms Sinus rhythm with marked sinus arrhythmia Otherwise normal ECG When compared with ECG of 04-Sep-2022 11:27, Sinus rhythm has replaced Atrial fibrillation Nonspecific T wave abnormality, improved in Inferior leads Nonspecific T wave abnormality no longer evident in Lateral leads Referred By: Generic ED Physician Electronically Signed By: ARUN WEATHERS MD
[2024-07-18 12:26] LABS: MANUAL DIFF FLAG NO
[2024-07-18 12:27] LABS: Basophils Percent Auto 0.7 % (0-2); Eosinophils Absolute Auto 0.1 X10*3/uL (0.0-0.4); Eosinophils Percent Auto 2.9 % (0-4); Hematocrit 40.1 % (42.0-52.0); Hemoglobin 13.8 g/dl (14.0-18.0); Imm Gran Abs Auto 0.03 X10*3/uL (0.00-0.03); Imm Gran Pct Auto 0.7 % (0.0-0.4); Lymphocytes Absolute Auto 1.6 X10*3/uL (1.2-4.9); Lymphocytes Percent Auto 35.7 % (20-40); Mean Corpuscular HGB Conc 34.4 g/dl (31.0-36.0); Mean Corpuscular Hemoglobin 32.2 pg (27.0-33.0); Mean Corpuscular Volume 93.7 fL (80.0-98.0); Mean Platelet Volume 9.1 fL (9.4-12.4); Monocytes Absolute Auto 0.4 X10*3/uL (0.1-1.2); Monocytes Percent Auto 8.1 % (2-11); Neutrophils Absolute Auto 2.3 x10*3/uL (2.0-8.3); Neutrophils Percent Auto 51.9 % (45-73); Platelet Count 144 X10*3/uL (160-400); Red Blood Count 4.28 X10*6/uL (4.60-5.80); Red Cell Distribution Width 12.7 % (11.0-16.0); White Blood Count 4.4 X10*3/uL (4.8-10.8)
--- NOTE | 2024-07-18 12:33 | ED.GENADULT ---
HPI - General Adult General Chief complaint: Dizziness Stated complaint: Hypotensive from doc office (110/88) Time Seen by Provider: 07/18/24 12:13 Source: patient Mode of arrival: EMS Limitations: no limitations History of Present Illness HPI narrative: 58 years old the patient with a history of diabetes he was sent here by the type disk quality control supervisor because low blood pressure at the office patient is asymptomatic at this time denies any chest pain abdominal pain and fever his blood pressure is better now reported by EMS blood pressure was 80 in the office. He did have a diarrhea today Onset (ago): hour(s) (4) Radiation: non-radiation Severity: moderate Pain Consistency: constant Relieving factors: none Exacerbating factors: none Related Data Home Medications ?Medication ?Instructions ?Recorded ?Confirmed fluticasone propionate 50 1 spray intranasal DAILY 01/03/20 09/09/22 mcg/actuation nasal spray,suspension omeprazole 40 mg capsule,delayed 40 mg PO QAM PRN Heartburn 01/03/20 09/09/22 release primidone 50 mg tablet 50 mg PO BID 01/20/21 09/09/22 dabigatran etexilate 150 mg 150 mg PO BID 11/03/21 09/09/22 capsule (Pradaxa) baclofen 10 mg tablet 10 mg PO BEDTIME PRN Muscle Spasm 04/08/22 09/09/22 divalproex 500 mg tablet,delayed 1,000 mg PO BEDTIME 05/12/22 09/09/22 release melatonin 10 mg tablet 1 tab PO BEDTIME PRN Insomnia 05/12/22 09/09/22 sotalol 120 mg tablet 120 mg PO BID 09/09/22 09/09/22 sotalol 80 mg tablet mg PO 10/18/23 Previous Rx's ?Medication ?Instructions ?Recorded bisacodyl 5 mg tablet,delayed 20 mg (4 x 5 mg) PO ONCE 1 day #4 03/23/23 release (Dulcolax (bisacodyl)) tabs simethicone 125 mg capsule (Gas 125 mg PO ONCE abdominal 03/23/23 Relief (simethicone)) distention #4 caps atorvastatin 80 mg tablet 80 mg PO BEDTIME #90 tabs 04/19/23 cyclobenzaprine 5 mg tablet 5 mg PO TID PRN muscle spasm 7 05/06/23 days #21 tabs lancets 33 gauge (TRUEplus Lancets) #200 ea 02/21/24 FreeStyle Aurelio 3 Edmond #1 ea 03/28/24 (blood-glucose,dining car waiter/waitress,cont) blood-glucose sensor (FreeStyle #2 ea 03/28/24 Aurelio 3 Plus Sensor device) insulin regular hum U-500 conc 500 See Rx Instructions subcut TID 30 03/28/24 unit/mL(3 mL) subcut pen (Humulin days #12 mL R U-500 (Conc) Insulin Kwikpen) tamsulosin 0.4 mg capsule 0.4 mg PO BEDTIME 30 days #30 caps 04/20/24 cholecalciferol (vitamin D3) 50 50 mcg PO QAM #90 caps 05/24/24 mcg (2,000 unit) capsule (Vitamin D3) ezetimibe 10 mg tablet 10 mg PO QAM #30 tabs 06/19/24 lisinopril 5 mg tablet 5 mg PO QAM #90 tabs 06/19/24 Jardiance 25 mg tablet 25 mg PO QAM 30 days #30 tabs 06/29/24 (empagliflozin) dulaglutide 4.5 mg/0.5 mL 4.5 mg (0.5 mL) subcut QWEEK #2 mL 07/18/24 subcutaneous pen injector (Trulicity) Allergies Allergy/AdvReac Type Severity Reaction Status Date / Time Penicillins [PENICILLINS] Allergy Unknown UNKNOWN Verified 07/18/24 12:03 metformin AdvReac Unknown diarrhea Verified 07/18/24 12:03 Review of Systems Constitutional: Constitutional: Reports no additional constitutional complaints ENT: Reports system reviewed and no additional complaints, except as documented Cardiovascular: Cardiovascular: Reports no additional cardiovascular complaints [facility] Past Medical History Attestation statement: The following information was validated with the patient. [facility] Narrative: Diabetes, nonischemic cardiomyopathy Medical History Pre-operative cardiovascular examination Morbid obesity Type 2 diabetes mellitus with unspecified complications Essential hypertension Nonischemic cardiomyopathy Typical atrial flutter Hyperparathyroidism CLAUDIA (obstructive sleep apnea) Vitamin D deficiency Diabetic nephropathy associated with type 2 diabetes mellitus skilled nursing (current) use of insulin Hypertension Dyslipidemia Obesity Diabetes type 2, uncontrolled Paroxysmal A-fib Surgical History History of radiofrequency ablation procedure for cardiac arrhythmia Hx of colonoscopy Family History Family History Father Cancer Diabetes CVD (cardiovascular disease) Mother Diabetes Social History Social History Household Members: None Household Members Other:: Alcohol intake: never Patient Tobacco Use Status: Former Tobacco user Substance Use Type: Crack/Cocaine and Marijuana Advance Directives: No Advance Directives Information Provided: Yes Current occupational status: disabled Current occupation: left handed Physical Exam ED Vital Signs: Vital Signs - 24 hr 07/18/24 12:02 07/18/24 14:00 Temperature 98.3 F 97.0 F Pulse Rate 77 78 Respiratory Rate 16 16 Blood Pressure 112/69 119/69 Pulse Oximetry 98 97 Oxygen Delivery Method Room Air Room Air BMI result Body Mass Index 27.9 Not acute distress the patient looks well he is comfortable in the stretcher Const General: cooperative Nutritional Appearance: well nourished Orientation/consciousness: patient oriented x3 Limitations: no limitations HENMT Head: Yes normal to inspection General nose exam: Normal external nose present Face and sinus: Yes normal facial exam Mouth: Normal oral and palatal mucosa present Throat: Yes posterior oropharynx normal Neck Neck: Yes normal visual inspection Chest Chest palpation & inspection: normal inspection of the chest Resp Effort & Inspection: normal respiratory effort Auscultation: clear to auscultation bilaterally Cardio Jugular venous distension: no JVD Rate: regular rate Rhythm: regular rhythm GI Inspection: Yes normal to inspection Palpation (GI): Soft to palpation, not firm and nontender Auscultation: normal bowel sounds Skin General skin exam: no rashes or lesions noted and elasticity normal Neuro General: patient oriented x3 Cranial nerves: Yes CN's II-XII intact bilaterally Course Reevaluation(s) Reevaluation #1: On re-examination patient feels much better remained normotensive in the emergency department troponin normal labs normal anticipate discharge Time: 14:46 Medications Administered Discontinued Medications Generic Name Dose Route Start Last Admin Trade Name Freq PRN Reason Stop Dose Admin Sodium Chloride 1,000 mls @ 999 mls/hr 07/18/24 12:45 07/18/24 12:37 Ns IVCONT 07/18/24 13:45 999 mls/hr .Q1H1M [facility] Administration Medical Decision Making Medical Decision Making MDM Narrative: Patient was sent here by the PCP because he was hypotensive in the office denies any chest pain shortness of breath we will check labs we will monitor for a couple hours Differential Diagnosis Differential Diagnoses: The differential diagnosis associated with the presentation includes Dehydration/cardiac ischemia/vasovagal episode Admission/Observation Consideration of admission/observation: Escalation of care including admission/observation considered Lab Data MDM Lab Attestation statement: I reviewed the patient's lab results. 07/18/24 12:23 07/18/24 12:23 Labs: Lab Results 07/18/24 Range/Units 12:23 WBC 4.4 L (4.8-10.8) X10*3/uL RBC 4.28 L (4.60-5.80) X10*6/uL Hgb 13.8 L (14.0-18.0) g/dl Hct 40.1 L (42.0-52.0) % MCV 93.7 (80.0-98.0) fL MCH 32.2 (27.0-33.0) pg MCHC 34.4 (31.0-36.0) g/dl RDW 12.7 (11.0-16.0) % Plt Count 144 L D (160-400) X10*3/uL MPV 9.1 L (9.4-12.4) fL Immature Gran % (Auto) 0.7 H (0.0-0.4) % Neut % (Auto) 51.9 (45-73) % Lymph % (Auto) 35.7 (20-40) % [place] % (Auto) 8.1 (2-11) % Eos % (Auto) 2.9 (0-4) % Baso % (Auto) 0.7 (0-2) % Lymph # (Auto) 1.6 (1.2-4.9) X10*3/uL [place] # (Auto) 0.4 (0.1-1.2) X10*3/uL Eos # (Auto) 0.1 (0.0-0.4) X10*3/uL Baso # (Auto) 0.0 (0.0-0.2) X10*3/uL Abs Immat Gran (auto) 0.03 (0.00-0.03) X10*3/uL Absolute Neuts (auto) 2.3 (2.0-8.3) x10*3/uL Absolute Nucleated RBC 0.000 (0.0-0.012) X10*3/uL Nucleated RBC % (auto) 0.0 (0.0-0.2) /100WBC Sodium 140 (135-145) mmol/L Potassium 4.3 (3.3-5.1) mmol/L Chloride 107 (96-108) mmol/L Carbon Dioxide 27 (22-29) mmol/L Anion Gap 10 L (12-20) BUN 14 (9-16) mg/dL Creatinine 0.78 (0.5-1.4) mg/dL Estim Creat Clear Calc 119.4 Estimated GFR > 60 Random Glucose 201 H (60-115) mg/dL Calcium 8.6 D (8.4-10.2) mg/dL Total Bilirubin 0.5 (0.0-1.0) mg/dL AST 27 (5-37) U/L ALT 35 (0-40) U/L Alkaline Phosphatase 86 (39-117) U/L Troponin I High Sens < 2.7 (<3.5-35.0) ng/L B-Natriuretic Peptide 57 (<100) pg/mL Total Protein 6.0 L (6.5-8.0) g/dL Albumin 3.7 (3.5-5.0) g/dL Independent Interpretation I performed an independent interpretation of an: EKG Interpretation: Normal sinus rhythm rate [address]-T changes no ischemia Critical Care Time Critical Care Time Critical Care Time: Yes Total Critical Care Time: 60 Attestation: Evaluation of hypotension Discharge Plan Discharge Clinical Impression: Hypotension Qualifiers: Hypotension type: unspecified hypotension type Qualified Code(s): I95.9 - Hypotension, unspecified Patient Disposition: Home, Self-Care Instructions: Hypotension (DC) Additional Instructions: Drink lots of fluid follow-up with your primary care physician return if worse Prescriptions: No Action bisacodyl [Dulcolax (bisacodyl)] 5 mg tablet,delayed release (DR/EC) 20 mg PO ONCE 1 Days Qty: 4 0RF Rx Instructions: take at noon the day before colonoscopy simethicone [Gas Relief (simethicone)] 125 mg capsule 125 mg PO ONCE Qty: 4 0RF Rx Instructions: take 2 at noon the day before colonoscopy and last 2 pills once you finish drinking second half of prep atorvastatin 80 mg tablet 80 mg PO BEDTIME Qty: 90 3RF (DME) lancets [TRUEplus Lancets] 33 gauge misc See Rx Instructions .ROUTE .COMPLEX Qty: 200 2RF Dose Instruction: USE DIRECTED TO TEST BLOOD SUGAR SIX TIMES DAILY DIRECTED Rx Instructions: USE DIRECTED TO TEST BLOOD SUGAR SIX TIMES DAILY DIRECTED (DME) FreeStyle Aurelio 3 Plus Sensor Device See Rx Instructions .ROUTE .MEDSUPPLY Qty: 2 11RF Rx Instructions: As directed every 15 days (DME) FreeStyle Aurelio 3 Edmond Misc See Rx Instructions .ROUTE .MEDSUPPLY Qty: 1 0RF Rx Instructions: for use with freestyle tamsulosin 0.4 mg capsule 0.4 mg PO BEDTIME 30 Days Qty: 30 2RF cholecalciferol (vitamin D3) [Vitamin D3] 50 mcg (2,000 unit) capsule 50 mcg PO QAM Qty: 90 5RF ezetimibe 10 mg tablet 10 mg PO QAM Qty: 30 5RF lisinopril 5 mg tablet 5 mg PO QAM Qty: 90 1RF Jardiance 25 mg tablet 25 mg PO QAM 30 Days Qty: 30 5RF Pradaxa 150 mg capsule 150 mg PO BID divalproex 500 mg tablet,delayed release (DR/EC) 1,000 mg PO BEDTIME melatonin 10 mg tablet 1 tab PO BEDTIME PRN (Reason: Insomnia) cyclobenzaprine 5 mg tablet 5 mg PO TID PRN (Reason: muscle spasm) 7 Days Qty: 21 0RF omeprazole 40 mg capsule,delayed release(DR/EC) 40 mg PO QAM PRN (Reason: Heartburn) fluticasone propionate 50 mcg/actuation spray,suspension 1 spray intranasal DAILY primidone 50 mg tablet 50 mg PO BID baclofen 10 mg tablet 10 mg PO BEDTIME PRN (Reason: Muscle Spasm) sotalol 120 mg tablet 120 mg PO BID Trulicity 4.5 mg/0.5 mL pen injector 4.5 mg subcut QWEEK Qty: 2 5RF sotalol 80 mg tablet PO Humulin R U-500 (Conc) Kwikpen 500 unit/mL (3 mL) insulin pen See Rx Instructions subcut TID 30 Days Qty: 12 2RF Rx Instructions: Breakfast 55 units, 80 units if over 200 supper 55 units, 70 units if over 200 subcutaneously 2 times a day; Print Language: Hungarian
[2024-07-18] MEDS: 0.9 % Sodium Chloride 1,000 ML 999 ML IVCONT (12:37)
[2024-07-18 12:48] LABS: Alanine Aminotransferase 35 U/L (0-40); Albumin Level 3.7 g/dL (3.5-5.0); Alkaline Phosphatase 86 U/L (39-117); Anion Gap 10 (12-20); Aspartate Amino Transferase 27 U/L (5-37); Bilirubin Total 0.5 mg/dL (0.0-1.0); Blood Urea Nitrogen 14 mg/dL (9-16); Calcium 8.6 mg/dL (8.4-10.2); Carbon Dioxide 27 mmol/L (22-29); Chloride 107 mmol/L (96-108); Creatinine Clr Calc Pharmacy 119.4; Estimated Glomerular Filt Rate > 60; Glucose Random 201 mg/dL (60-115); Potassium 4.3 mmol/L (3.3-5.1); Sodium 140 mmol/L (135-145)
[2024-07-18 12:52] LABS: B Type Natriuretic Peptide 57 pg/mL (<100)
--- OUTSIDE RECORDS SUMMARY | 2024-07-18 12:52 | XMS_ITS | Encounter Summary ---
Author Organization [employer] Address [address] [place] [address] Care Team Providers Care Soap Press Feeder Name Role Phone CatahoulaHillary montejo MD Primary Care Provider [phone] Orlando Warner MD Unavailable [phone] Layla Marrufo NP Unavailable Hang, Meri OD Unavailable [phone] Encounter Details Date Type Department Care [...] housing situation today? I have j luis ajcobs 12/22/[address] you li [...] Description 09/26/2024 3:00 PM EDT Office Visit [facility] [address] [place] [address] Wade, Raquel [address] [place] [address] documented as of this encounter Procedures Procedure Name Priority Date/Time Associated Diagnosis Comments CBC WITH AUTO DIFFERENTIAL Routine 07/18/2024 12:23 PM EDT COMPREHENSIVE METABOLIC PANEL Routine 07/18/2024 12:23 PM EDT GLUCOSE, WHOLE BLOOD Routine 07/18/2024 10:55 AM EDT documented in this encounter Results * (ABNORMAL) Comprehensive Metabolic Panel (07/18/2024 12:23 PM EDT) Sodium 140 135 - 145 mmol/L [facility] Potassium 4.3 3.3 - 5.1 mmol/L [facility] Chloride 107 96 - 108 mmol/L [facility] Carbon Dioxide 27 22 - 29 mmol/L [facility] Anion Gap 10(L) 12 - 20 [facility] Urea Nitrogen (BUN) 14 9 - 16 mg/dL [facility] Creatinine, Serum 0.78 0.5 - 1.4 mg/dL [facility] Creatinine Clr Calc Pharmacy 119.4 [facility] Comment:eGFR (calculated fro m the MDRD study equation) and eCrCl(calculated from the Cockcroft-Gault equation) are based ondifferent parameters and may not yield comparable results.If eCrCl result is absurd, please check patient'sheight/weight. Estimated Glomerular Filt Rate >60 [facility] Comment:Chronic Kidney Disea se: Estimated GFR < 60 mL/min/[id number] Kidney Disease: Estimated GFR < 15 mL/min/1.73m2 Glucose 201(H) 60 - 115 mg/dL [facility] Calcium 8.6 8.4 - 10.2 mg/dL [facility] Bilirubin, Total 0.5 0.0 - 1.0 mg/dL [facility] Aspartate Amino Transferase 27 5 - 37 U/L [facility] Alanine Aminotransferase 35 0 - 40 U/L [facility] Total Protein 6.0(L) 6.5 - 8.0 g/dL [facility] Albumin Level 3.7 3.5 - 5.0 g/dL [facility] Alkaline Phosphatase 86 39 - 117 U/L [facility] 07/18/2024 12:2 3 PM EDT 07/18/2024 12:25 PM EDT us Generic External Data Provider LAB BLOOD ORDERAB LES Final Result [facility] [address] [place] [address] [phone] * (ABNORMAL) CBC auto differential (07/18/2024 12:23 PM EDT) White Blood Count 4.4(L) 4.8 - 10.8 X10*3/uL [facility] Red Blood Count 4.28(L) 4.60 - 5.80 X10*6/uL [facility] Hemoglobin 13.8(L) 14.0 - 18.0 g/dl [facility] Hematocrit 40.1(L) 42.0 - 52.0 % [facility] Mean Corpuscular Volume 93.7 80.0 - 98.0 fL [facility] Mean Corpuscular Hemoglobin 32.2 27.0 - 33.0 pg [facility] Mean Corpuscular HGB Conc 34.4 31.0 - 36.0 g/dl [facility] Red Cell Distribution Width 12.7 11.0 - 16.0 % [facility] Platelet Count 144(L) 160 - 400 X10*3/uL [facility] Mean Platelet Volume 9.1(L) 9.4 - 12.4 fL [facility] Neutrophils Percent Auto 51.9 45 - 73 % [facility] Imm Gran Pct Auto 0.7(H) 0.0 - 0.4 % [facility] Lymphocytes Percent Auto 35.7 20 - 40 % [facility] Monocytes Percent Auto 8.1 2 - 11 % [facility] Eosinophils Percent Auto 2.9 0 - 4 % [facility] Basophils Percent Auto 0.7 0 - 2 % [facility] NRBC Pct Auto 0.0 0.0 - 0.2 /100WBC [facility] Neutrophils Absolute Auto 2.3 2.0 - 8.3 x10*3/uL [facility] Imm Gran Abs Auto 0.03 0.00 - 0.03 X10*3/uL [facility] Lymphocytes Absolute Auto 1.6 1.2 - 4.9 X10*3/uL [facility] Monocytes Absolute Auto 0.4 0.1 - 1.2 X10*3/uL [facility] Eosinophils Absolute Auto 0.1 0.0 - 0.4 X10*3/uL [facility] Basophils Absolute Auto 0.0 0.0 - 0.2 X10*3/uL [facility] NRBC Abs Auto 0.000 0.0 - 0.012 X10*3/uL [facility] 07/18/2024 12:2 3 PM EDT 07/18/2024 12:25 PM EDT us Generic External Data Provider LAB BLOOD ORDERAB LES Final Result [facility] [address] [place] [address] [phone] * (ABNORMAL) Glucose, Whole Blood (07/18/2024 10:55 AM EDT) Glucose, Whole Blood 198(H) 60 - 115 mg/dL [facility] Comment:METER #: [id number] 5Testing performed in the Endocrinology Department [address], [address], [facility]. 07/18/2024 10:5 5 AM EDT 07/18/2024 11:00 AM EDT us Generic External Data Provider LAB BLOOD ORDERAB LES Final Result [facility] [address] [place] [address] [phone] documented in this encounter Visit Diagnoses Not on filedocumented in this encounter Additional Health Concerns Assessment Noted Time PHQ-9 Depression Total Score: 0 05/25/19 24 10:32 AM EDT documented as of this encounter Care Teams Soap Press Feeder Relationship Specialty Start Date End Date Hillary Zamora MD [address] [place] [address] PCP - General Family Medicine 03/07/18 Orlando Warner MD [address] [place] [address] Endocrinology 03/29/24 Layla Marrufo NP [address] [place] [address] Urology 04/05/24 Meri Mauricio OD [address] [place] [address] Optometry 04/17/24 Teetee Zacarias PRESSURIZER Endocrinology 03/29/24 documented as of this encounter
--- OUTSIDE RECORDS SUMMARY | 2024-07-18 12:53 | XMS_ITS | Clinical Summary ---
Author Organization [employer] Address [address] [facility] 7t [place] [address] Care Team Providers Care Emergency Preparedness Coordinator Name Role Phone Hillary Zamora MD Primary Care Provider [phone] Orlando Warner MD Unavailable [phone] Layla Marrufo NP Unavailable Meri Mauricio OD Unavailable [phone] Allergies Active Allergy Reactions Criticality Noted [...] hyperglycemia, with long-term current use of insulin ([facility]) 1 kit 6 (six) times a day. [...] hyperglycemia, with long-term current use of insulin ([facility]) TEST BLOOD SUGAR SIX TIMES DAILY DIRECTED [...] migh t be different from the original. [facility] Order Department Supervisor: Lizz, member services number [phone], provider services line, , option 4 Dining Room Attendant Cafeteria Agency: [facility] Problem Noted Date Diagnosed Date Dietary counseling [...] procedure -he is scheduled to see the ibm websphere portal developer September 07, 2023 -he is scheduled for [...] procedure -he is scheduled to see the ibm websphere portal developer September 07, 2023 -he is scheduled for [...] Urinary hesitancy 09/02/2023 Overview (04/05/2024): -seen by [facility] 10/27/23 -tamulsosin 0.4 started 10/27/23 [...] rate control. -He was referred back to insurance law specialist 01/2021 -Pt seen cardiology 10/2021 with [...] discontinued. -Followed by Dr. Matias Marcelino of [facility] -Saw Evonne Gillespie NP [...] rate control. -He was referred back to insurance law specialist 01/2021 -Pt seen cardiology 10/2021 with [...] discontinued. -Followed by Dr. Matias Marcelino of [facility] -Saw Evonne Gillespie NP [...] rate control. -He was referred back to insurance law specialist 01/2021 -Pt seen cardiology 10/2021 with [...] discontinued. -Followed by Dr. Matias Marcelino of [facility] -Saw Evonne Gillespie NP [...] rate control. -He was referred back to insurance law specialist 01/2021 -Pt seen cardiology 10/2021 with [...] discontinued. -Followed by Dr. Matias Marcelino of [facility] -Saw Evonne Gillespie NP [...] been asymptomatic. He was referred back to insurance law specialist 01/2021 He is awaiting a new [...] ,diastolic dysfunction indeterminate -continue to f with ibm websphere portal developer Cardiomyopathy 03/29/2022 Overview (03/19/2024): Possibly due to [...] on Sotolol. Pressure is too low for ORILN or ARB but orlin on list so [...] (03/29/2024): Diabetes is not controlled. Followed by Manager [place], Dr. Warner -has Dexacom GCM Lab Results Component Value Date HGBA1C 9.7 (A) 05/25/2023 HGBA1C 9.1 (A) 01/24/2023 HGBA1C 8.9 (A) 08/18/2022 - Lab Results Component Value Date CREATININE 0.81 10/14/2022 EGFR >60 10/14/2022 MICROALBCREU 12.7 10/14/2022 MICROALBCREU TNP 04/06/2022 LDLCHOLCAL 77 10/14/2022 -Orlin/Arb: lisinopril 5mg -Statin therapy: atorvastatin 80mg -Diabetic eye exam: at [facility] with Gopal Hendrickson 06/22/2022 -Continue lifestyle modifications -Followed by Dr. Warner director craft center -continue Jardiance 25 daily -continue humulin R U 500 0 units tid Note from Endo 02/06/25 Humulin U500 breakfast 55 units take 80 units if over 200 Supper 55 units take 70 if over 200 Change Trulicity to Mounjaro Continue Jardiance Assessment & Plan (09/02/2023 10:24 AM EDT): Diabetes is not controlled. Followed by Manager [place], Dr. Warner -has Dexacom GCM Lab Results Component Value Date HGBA1C 9.7 (A) 05/25/2023 HGBA1C 9.1 (A) 01/24/2023 HGBA1C 8.9 (A) 08/18/2022 - Lab Results Component Value Date CREATININE 0.81 10/14/2022 EGFR >60 10/14/2022 MICROALBCREU 12.7 10/14/2022 MICROALBCREU TNP 04/06/2022 LDLCHOLCAL 77 10/14/2022 -Orlin/Arb: lisinopril 5mg -Statin therapy: atorvastatin 80mg -Diabetic eye exam: at [facility] with Gopal Dieterich 06/22/2022 -Diabetic foot exam: -Continue lifestyle modifications -Continue current medications -Followed by Dr. Warner director craft center -continue Trulicity 4.5mg weekly -continue Jardiance 25 daily -continue humulin R U 500 0 units tid Assessment & Plan (05/25/2023 10:47 AM EDT): Diabetes is not controlled. Followed by Manager [facility], Dr. Warner -has Dexacom GCM Lab Results Component Value Date HGBA1C 9.1 (A) 01/24/2023 HGBA1C 8.9 (A) 08/18/2022 Lab Results Component Value Date MICROALBUR 13.0 10/14/2022 CREATININE 0.81 10/14/2022 -Seen by endocrinology on 10/12/2022. No changes made. -Changes: None -Orlin/Arb: lisinopril 5mg -Statin therapy: atorvastatin 80mg -Diabetic eye exam: at [facility] with Gopal Dieterich 06/22/2022 -Diabetic foot exam: -Continue lifestyle modifications -Continue current medications -Followed by Dr. Warner director craft center -continue Trulicity 4.5mg weekly -continue Jardiance 25 daily -Continue humulin R U 500 0 units tid Assessment & Plan (01/24/2023 12:08 PM EST): Diabetes is not controlled. Followed by Manager [place], Dr. Warner -has Dexacom GCM Lab Results Component Value Date HGBA1C 9.1 (A) 01/24/2023 HGBA1C 8.9 (A) 08/18/2022 Lab Results Component Value Date MICROALBUR 13.0 10/14/2022 CREATININE 0.81 10/14/2022 -Seen by endocrinology on 10/12/2022. No changes made. -Changes: None -Orlin/Arb: lisinopril 5mg -Statin therapy: atorvastatin 80mg -Diabetic eye exam: at [facility] with Gopal Hendrickson 06/22/2022 -Diabetic foot exam: -Continue lifestyle modifications -Continue current medications -Followed by Dr. Warner director craft center -continue Trulicity 4.5mg weekly -continue Jardiance 25 [...] for tx -Will try to refer in [facility] 01/24/2023 Assessment & Plan (09/02/2023 10:22 AM EDT): Does not tolerate CPAP-pt willing to be evaluated again by sleep med and check how can improve use of machine ,explained importance to pt for tx -Will try to refer in [facility] 01/24/2023 Assessment & Plan (01/24/2023 11:12 AM EST): Does not tolerate CPAP-pt willing to be evaluated again by sleep med and check how can improve use of machine ,explained importance to pt for tx -Will try to refer in [facility] 01/24/2023 Assessment & Plan (08/18/2022 12:01 PM [...] hb1ac is 8.9-per pt improving following w director craft center -last echo in chart 12/2021: ef 50-60%, [...] ablation and after it, clearance from his ibm websphere portal developer prior to have eye surgery --I will have this note fax to his eye doctor today -if pt is cleared from his ibm websphere portal developer then pt will need to hold on pradaxa the morning of procedure unless indicated differently by his ibm websphere portal developer,hold as well PO meds in am of procedure and to use half insuline basal insuline at night prior surgery. Also pt will need to check with his ibm websphere portal developer if prior eye surgery will need to hold digoxin and diltiazem if meds are going to be continued after ablation. -I called today as well to his ibm websphere portal developer at # [phone] at [facility] and left my phone info to get a call back to discuss with ibm websphere portal developer, I also inform pt to discuss w his ibm websphere portal developer at his upcoming visit in 2 days [...] DEPARTMENT Provider, Generic External Data 07/06/2024 Telephone [facility] [address] [place] [phone] Hillary Zamora MD Nurse Triage 07/04/2024 Telephone [facility] [address] [place] [phone] Hillary Zamora MD No Show 06/28/2024 Telephone [facility] [address] [place] [phone] Hillary Zamora MD chartprep 05/09/[address] [address] Hillray Zamora MD OUTREACH from Last 3 Months [...] the past 12 months, has t he [employer], gas, oil or water company threatened to [...] Description 09/26/2024 3:00 PM EDT Office Visit [facility] [address] [place] [address] Wade, Raquel [address] [place] [address] Health Maintenance Due Date Last Done Comments [...] Procedure Name Priority Date/Time Associated Diagnosis Comments COMPREHENSIVE METABOLIC PANEL Routine 07/18/2024 12:23 PM EDT CBC WITH AUTO DIFFERENTIAL Routine 07/18/2024 12:23 PM EDT GLUCOSE, WHOLE [...] hyperglycemia, with long-term current use of insulin ([facility]) LAB COLOGUARD?? COLON CANCER SCREEN Routine 02/07/2023 7:30 AM EST Colon cancer screening HEPATITIS C ANTIBODY REFLEX Routine 10/14/2022 11:04 AM EDT HIV ANTIBODY/ANTIGEN ([place] [facility]) Routine 10/14/2022 11:04 AM EDT LIPID PANEL, STANDARD Routine 10/14/2022 11:04 AM EDT Dyslipidemia HM DIABETES EYE EXAM Routine 06/22/2022 from Last 3 Months or Most Recently Relevant to Health Maintenance Results * (ABNORMAL) CBC auto differential (07/18/2024 12:23 PM EDT) White Blood Count 4.4(L) 4.8 - 10.8 X10*3/uL [facility] Red Blood Count 4.28(L) 4.60 - 5.80 X10*6/uL [facility] Hemoglobin 13.8(L) 14.0 - 18.0 g/dl [facility] Hematocrit 40.1(L) 42.0 - 52.0 % [facility] Mean Corpuscular Volume 93.7 80.0 - 98.0 fL [facility] Mean Corpuscular Hemoglobin 32.2 27.0 - 33.0 pg [facility] Mean Corpuscular HGB Conc 34.4 31.0 - 36.0 g/dl [facility] Red Cell Distribution Width 12.7 11.0 - 16.0 % [facility] Platelet Count 144(L) 160 - 400 X10*3/uL [facility] Mean Platelet Volume 9.1(L) 9.4 - 12.4 fL [facility] Neutrophils Percent Auto 51.9 45 - 73 % [facility] Imm Gran Pct Auto 0.7(H) 0.0 - 0.4 % [facility] Lymphocytes Percent Auto 35.7 20 - 40 % [facility] Monocytes Percent Auto 8.1 2 - 11 % [facility] Eosinophils Percent Auto 2.9 0 - 4 % [facility] Basophils Percent Auto 0.7 0 - 2 % [facility] NRBC Pct Auto 0.0 0.0 - 0.2 /100WBC [facility] Neutrophils Absolute Auto 2.3 2.0 - 8.3 x10*3/uL [facility] Imm Gran Abs Auto 0.03 0.00 - 0.03 X10*3/uL [facility] Lymphocytes Absolute Auto 1.6 1.2 - 4.9 X10*3/uL [facility] Monocytes Absolute Auto 0.4 0.1 - 1.2 X10*3/uL [facility] Eosinophils Absolute Auto 0.1 0.0 - 0.4 X10*3/uL [facility] Basophils Absolute Auto 0.0 0.0 - 0.2 X10*3/uL [facility] NRBC Abs Auto 0.000 0.0 - 0.012 X10*3/uL [facility] 07/18/2024 12:2 3 PM EDT 07/18/2024 12:25 PM EDT us Generic External Data Provider LAB BLOOD ORDERAB LES Final Result [facility] [address] [place] [phone] [phone] * (ABNORMAL) Comprehensive Metabolic Panel (07/18/2024 12:23 PM EDT) Sodium 140 135 - 145 mmol/L [facility] Potassium 4.3 3.3 - 5.1 mmol/L [facility] Chloride 107 96 - 108 mmol/L [facility] Carbon Dioxide 27 22 - 29 mmol/L [facility] Anion Gap 10(L) 12 - 20 [facility] Urea Nitrogen (BUN) 14 9 - 16 mg/dL [facility] Creatinine, Serum 0.78 0.5 - 1.4 mg/dL [facility] Creatinine Clr Calc Pharmacy 119.4 [facility] Comment:eGFR (calculated fro m the MDRD study equation) and eCrCl(calculated from the Cockcroft-Gault equation) are based ondifferent parameters and may not yield comparable results.If eCrCl result is absurd, please check patient'sheight/weight. Estimated Glomerular Filt Rate >60 [facility] Comment:Chronic Kidney Disea se: Estimated GFR < 60 mL/min/[id number] Kidney Disease: Estimated GFR < 15 mL/min/1.73m2 Glucose 201(H) 60 - 115 mg/dL [facility] Calcium 8.6 8.4 - 10.2 mg/dL [facility] Bilirubin, Total 0.5 0.0 - 1.0 mg/dL [facility] Aspartate Amino Transferase 27 5 - 37 U/L [facility] Alanine Aminotransferase 35 0 - 40 U/L [facility] Total Protein 6.0(L) 6.5 - 8.0 g/dL [facility] Albumin Level 3.7 3.5 - 5.0 g/dL [facility] Alkaline Phosphatase 86 39 - 117 U/L [facility] 07/18/2024 12:2 3 PM EDT 07/18/2024 12:25 PM EDT us Generic External Data Provider LAB BLOOD ORDERAB LES Final Result Performing Organization Address [facility] Co de Phone Number [facility] [address] [place] [phone] [phone] * (ABNORMAL) Glucose, Whole Blood (07/18/2024 10:55 AM EDT) Glucose, Whole Blood 198(H) 60 - 115 mg/dL [facility] Comment:METER #: [id number] 5Testing performed in the Endocrinology Department [address] , [address], [facility]. 07/18/2024 10:5 5 AM EDT 07/18/2024 11:00 AM EDT Generic External Data Provider LAB BLOOD ORDERAB LES Final Result Performing Organization Address [facility] Co de Phone Number [facility] [address] [place] [address] [phone] * Albumin, Random Urine W/Creatinine (12/07/2023 8:25 AM EDT) Creatinine, Urine 65.99 mg/dL [facility] Microalbumin Urine <5.0 mg/L [facility] Microalbum Creatinine Ratio Ur TNP <30 ug/mg cr [facility] Comment:Unable to calculate albumin/creatinine ratio due to lowmicroalbumin or creatinine result. 12/07/2023 8:25 AM EDT 12/07/2023 9:37 AM EDT Generic External Data Provider LAB URINE ORDERAB LES Final Result Performing Organization Address [facility] Co de Phone Number [facility] [address] [place] [address] [phone] * (ABNORMAL) POCT glycosylated hemoglobin (Hgb [...] Positive( A) Negative 02/15/2023 9:47 AM EST [facility] (CLIA #:[id number]) Comment: POSITIVE TEST RESULT. A positive Cologuard [...] screened with both Cologuard and colonoscopy. (Fabiano Ross al, N Engl J Med 2014;370(14):4942-4660.) Cologuard may produce a false negative or false positive result (no colorectal cancer or precancerous polyp present at colonoscopy follow up). A negative Cologuard test result does not guarantee the absence of CRC or advanced adenoma (pre-cancer). The current Cologuard screening interval is every 3 years. ([place] [employer] Society and U.S. Multi-Society Task Force). Cologuard performance data in a 10,000 patient pivotal study using colonoscopy as the reference method can be accessed at the following location: www.[employer]/results. Additional description of the Cologuard test process, warnings and precautions can be found at www.cologuard.com. Stool specimen (specimen) 02/07/2023 7:30 AM EST 02/08/2023 3:13 PM EST Hillary Zamora MD LAB MOLECULAR DIAGNOSTICS ORDERABLES Final Result Performing Organization Address City/[facility]/ZIP Co de Phone Number [facility] (CLIA #:[id number]) [facility] [place] [address], * Hepatitis C Antibody Reflex (10/14/2022 11:04 AM EDT) Hepatitis C Antibody Nonreactive Nonreactive [facility] Comment:Antibodies to HCV no t detected; does not exclude early acuteHCV infection. 10/14/2022 11:0 4 AM EDT 10/14/2022 12:57 PM EDT Hillary aZmora MD LAB BLOOD ORDERABLES Final Result [facility] [address] [place] [phone] * HIV Ab/Ag ([facility]) (10/14/2022 11:04 AM EDT) HIV AB/AG Nonreactive Nonreactive [facility] Comment:HIV-1 p24 Ag and/or HIV-1/HIV-2 Ab not detected.A test result that is nonreactive does not exclude thepossibility of exposure to or infection with HIV-1 and/orHIV-2. Nonreactive results in this assay for individualswith prior exposure to HIV-1 and/or HIV-2 may be due toantigen and antibody levels that are below the limit ofdetection of this assay.The [employer] Operator HIV Ag/Ab Combo assay result andsupplemental assay results should be interpreted inconjunction with the patient's clinical presentation,history and other laboratory results. If the results areinconsistent with clinical evidence, additional testing issuggested to confirm the result. 10/14/2022 11:0 4 AM EDT 10/14/2022 12:57 PM EDT us Hlilary Zamora MD LAB BLOOD ORDERABLES Final Result [facility] [address] [place] [phone] * Lipid Panel, Standard (10/14/2022 11:04 AM EDT) Triglycerides 96 mg/dL [facility] Comment:Desirable Triglyceri de: less than 150 mg/dLBorderline High Triglyceride 150-199 mg/dLHigh Triglyceride: 200-499 mg/dLVery High Triglyceride: greater than or equal to 5OO mg/dL Cholesterol 128 mg/dL [facility] Comment:Desirable Cholestero l: less than 200 mg/dLBorderline High Cholesterol: 200-239 mg/dLHigh Cholesterol: greater than 239 mg/dL LDL Cholesterol Calculated 77 mg/dl [facility] Comment:Desirable LDL: less than 100 mg/dLNear Optimal/Above Optimal LDL: 110- 129 mg/dLBorderline High LDL: 130-159 mg/dLHigh LDL: 160-189 mg/dLVery High LDL: greater than or equal to 190 mg/dL HDL Cholesterol 32 mg/dL [facility] Comment:Desirable HDL: great er than 40 mg/dL Note: This HDL assay may give artificially low results in patients with liver disease. Blood Venous blood specimen / Unknown 10/14/2022 11:04 AM EDT 10/14/2022 12:57 PM EDT Hillary Zamora MD LAB BLOOD ORDERABLES Final Result [facility] [address] [place] [address] [phone] * Diabetes Eye Exam (06/22/2022) [facility] Signature Eye Exam Normal Normal Comment:[facility] Historical Provider HEALTH MAINTENANCE Final Result from Last 3 Months or Most Recently Relevant to Health Maintenance Insurance [facility] < 65 [place] [id number] [place] [id number] DENTAL [facility] Care Teams Emergency Preparedness Coordinator Relationship Specialty Start Date End Date Sera, MD Hillary [address] [place] [address] PCP - General Family Medicine 03/07/18 Orlando Warner MD [address] [place] [address] Endocrinology 03/29/24 Layla Marrufo NP [address] [place] [address] Urology 04/05/24 Meri Mauricio OD [address] [place] [phone] Optometry 04/17/24 Teetee Zacarias WASTE WATER OR WATER PLANT OPERATOR Endocrinology 03/29/24
--- OUTSIDE RECORDS SUMMARY | 2024-07-18 12:53 | XMS_ITS | Encounter Summary ---
Author Organization [employer] Address [address] [facility] [place] [address] Care Team Providers Care Cement Production Plant Operator Name Role Phone Hillary Zamora MD Primary Care Provider [phone] Orlando Warner MD Unavailable Layla Marrufo NP Unavailable Meri Mauricio OD Unavailable [phone] Encounter Details Date Type Department Care Team (Late st Contact Info) Description 04/17/2024 Orders Only [facility] [address] [place], [place] [phone] Hillary Zamora MD [address] [place], [place] [phone] Type 2 diabetes mellitus with hyperglycemia, with [...] 3:00 PM EDT Office Visit [facility] [address] [place] [address] Bassam Olveraaris [address] [place] [address] documented as of this encounter Visit Diagnoses Diagnosis Type 2 diabetes mellitus with hyperglycemia, with long-term current use of insulin ([facility] Primary Type 2 diabetes mellitus with hyperosmolarity, uncontrolled ([facility]) Chronic atrial fibrillation ([facility]) Atrial fibrillation Dyslipidemia Other and unspecified hyperlipidemia Primary hypertension Unspecified essential hypertension Benign prostatic hyperplasia without lower urinary tract symptoms documented in this encounter Additional Health Concerns Assessment Noted Time PHQ-9 Depression Total Score: 0 05/25/19 24 10:32 AM EDT documented as of this encounter Care Teams Cement Production Plant Operator Relationship Specialty Start Date End Date Hillary Zamora MD [address] [place] [address] PCP - General Family Medicine 03/07/18 Orlando Warner MD [address] [place] [address] Endocrinology 03/29/24 Layla Marrufo NP [address] [place] [address] Urology 04/05/24 Meri Mauricio OD [address] [place] [phone] Optometry 04/17/24 Teetee Zacarias MANAGER OF TRANSPORTATION Endocrinology 03/29/24 documented as of this encounter
--- OUTSIDE RECORDS SUMMARY | 2024-07-18 12:53 | XMS_ITS | Encounter Summary ---
Author Organization [employer] [facility] Address [address] [facility] [address]t [place] [address] Care Team Providers Care Industrial Mechanic Name Role Phone Hillary Zamora MD Primary Care Provider Orlando Warner MD Unavailable Layla Marrufo NP Unavailable HangSandorn OD Unavailable Encounter Details Date Type Department Care Team (Latest Contact Info) Description 12/23/2020 Abstract [facility] CONVERSIONS Dental, Provider, DDS Social History [...] [facility]ULT [facility] [address] [place] [address] Wade, Raqeul [address] [place] [address] documented as of this encounter Visit Diagnoses Not on filedocumented in this encounter Care Teams Industrial Mechanic Relationship Specialty Start Date End Date Hillary Zamora MD [address] [place], [place] [phone] PCP - General Family Medicine 03/07/18 Orlando Warner MD [address] [place] [address] Endocrinology 03/29/24 Layla Marrufo NP [address] [place] [address] Urology 04/05/24 Meri Mauircio OD [address] [place] [phone] Optometry 04/17/24 Teetee Zacarias SLIP SHEETER Endocrinology 03/29/24 documented as of this encounter
[2024-07-18 12:55] LABS: Troponin-I High Sensitivity < 2.7 ng/L (<3.5-35.0)
[2024-07-18 14:00] VITALS: BP 119/69; PULSE 78; RESP 16; TEMP 36.1; O2SAT 97
[2024-07-18 14:46] VITALS: BP 119/69; PULSE 78; RESP 16; TEMP 36.1; O2SAT 97
== END 2024-07-18 14:46 | disposition home or self-care (01) ==
PROVIDERS: Emergency Provider Emergency Medicine; PCP Family Medicine
DX: I95.9 Hypotension, unspecified (principal); R42 Dizziness and giddiness; R06.02 Shortness of breath; I49.8 Other specified cardiac arrhythmias; Z79.899 Other long term (current) drug therapy; Z79.4 Long term (current) use of insulin; Z87.891 Personal history of nicotine dependence
CPT/HCPCS: 36415; 80053; 82947; 83036; 83880; 84484; 85025; 93005; 99284

== ENCOUNTER → 2024-07-18 12:05 | Outpatient (BNV) | payer OTHER, SELFPAY | PROVIDERS: Emergency Provider Emergency Medicine; PCP Family Medicine; Visit Provider Internal Medicine Cardiovascular Disease | DX: R42 Dizziness and giddiness (principal) | CPT/HCPCS: 93010 ==

== ENCOUNTER 2024-09-05 09:15 | Outpatient (AMB) | payer OTHER, SELFPAY ==
--- OUTSIDE RECORDS SUMMARY | 2024-09-05 09:24 | XMS_ITS | Encounter Summary ---
Author Organization [employer] Address [address] [facility] [address] 7t [place] [address] Care Team Providers Care Geology Instructor Name Role Phone Hillary Zamora MD Primary Care Provider [phone] Orlando Warner MD Unavailable Layla Marrufo NP Unavailable Meri Mauricio OD Unavailable [phone] Encounter Details Date Type Department Care Team (Late st Contact Info) Description 04/17/2024 Orders Only [facility] MEDICINE [address] [place], [place] [phone] Hillary Zamora MD [address] [place], [place] [phone] Type 2 diabetes mellitus with hyperglycemia, with [...] Description 09/26/2024 3:00 PM EDT Office Visit [facility] ADULT DENTAL [address] [place] [address] Wade, Raquel [address] [place] [address] 10/03/2024 9:30 AM EDT Office Visit [facility] MEDICINE [address] [place] [address] Hillary Zamora MD [address] [place] [address] documented as of this encounter Visit Diagnoses Diagnosis Type 2 diabetes mellitus with hyperglycemia, with long-term current use of insulin (CMS/HCC)- Primary Type 2 diabetes mellitus with hyperosmolarity, uncontrolled (CMS/HCC) Chronic atrial fibrillation (CMS/HCC) Atrial fibrillation Dyslipidemia Other and unspecified hyperlipidemia Primary hypertension Unspecified essential hypertension Benign prostatic hyperplasia without lower urinary tract symptoms documented in this encounter Additional Health Concerns Assessment Noted Time PHQ-9 Depression Total Score: 0 05/25/19 24 10:32 AM EDT documented as of this encounter Care Teams Geology Instructor Relationship Specialty Start Date End Date Hillary Zamora MD [address] [place] [address] PCP - General Family Medicine 03/07/18 Orlando Warner MD [address] [place] [address] Endocrinology 03/29/24 Layla Marrufo NP [address] [place] [address] Urology 04/05/24 Meri Mauricio OD [address] [place] [address] Optometry 04/17/24 Teetee Zacarias DESKTOP MANAGER Endocrinology 03/29/24 documented as of this encounter
--- OUTSIDE RECORDS SUMMARY | 2024-09-05 09:25 | XMS_ITS | Data Portability ---
Author Organization [employer], [facility] Address [address] [place] [address] Care Team Providers Care Typewriter Aligner Name Role Phone [facility] Referring Provider [facility] Referring Provider [phone] Assessment Encounter Date Assessment Date Assessment LastModified by Organization Details LastModified Time 05/14/2022 05/14/2022 I provided real -time medical direction via phone for this encounter, and was available for additional phone based assistance as needed. I have reviewed and agree with the Assessment and Plan as documented by the Salesperson Sheet Music. Patient given the opportunity to ask questions. [...] he has AFib. during the time the billiard player was there is heart rate generally stayed [...] As an addendum the patient called his rn faculty to clarify his dose. He was supposed to be on metoprolol 50 mg twice a day. Upon further discussion with his rn faculty he was referred to the emergency department [...] tablet,exte nded release 24 hr 2022 023 [facility], [address] [place] [address], [id number], 3 13:41:10 Patient TargetsNo targets recorded. Patient InstructionsNo instructions recorded. Reason for Referral None Reported. Medical Equipment None Reported. Allergies Allergen ID Allergen Name Allergen Category Reaction Reaction Severity Criticality Documentation Date Start Date Code Code System Note Provider Name and Address Organization Details Recorded Time 6917 Product containin g penicilli n (product) medicatio n Not available Not available Not available 01/03/2024 81673 8001 SNOMED Not Available [facility] - production 03:33:38 [...] /min 127 mm[Hg] 84 mm[Hg] Not Available [employer] [facility] - production 3 13:19:44 Social History None recorded. Functional Status None recorded. Mental Status None recorded. Family History Nothing Reported. Medical History No medical history recorded. Past Encounters Encounter ID Performer Location Encounter Start Date Encounter Closed Date Diagnosis/Indication Diagnosis SNOMED-CT Code Diagnosis ICD10 Code Diagnosis Note [id number] Abena Kent MD Main - [facility] [address] [place] [address] 05/14/2022 13:19:28 05/17/2022 10:39:10 Atrial fibrillation 35953904 I48.91 Health Concerns Section Related Observation LastModified by Organization Detai ls LastModified Time None Recorded Concern Status LastModified by Organization Details LastModified Time None Recorded Advance Directives Directive None Recorded Payers Insurance Date Sequence Insurance Name Policy Number Policy Patterson Covered Member ID Patterson Member ID Guarantor Name 05/10/2023 1 [facility] - DOS PRIOR TO 2022 - DUAL ELIGIBLE (MEDICARE REPLACEMENT/ADV ANTAGE - HMO) Abrahamroosevelt Ansari [id number] Abrahamroosevelt Ansari 05/10/2023 1 [facility] - DOS ON OR AFTER 2022 - DUAL ELIGIBLE - RETIREMENT OPTIONS AND ONE CARE (MEDICARE REPLACEMENT/ADV ANTAGE - HMO) Abraham Ansari [id number] Abraham Ansari Notes Date Note Type Note Provider Name and Address Organization Details Recorded Time 05/14/2022 text/html HPI: ALLERGIC TO: PCN, METFORMIN. Patient with history of Afib with recent med change reporting HR 120's with slight dizziness. Recently seen 05/12/22 with complaints of chest pain [facility] .................. .................. .................. .................. .................. .................. .................. ............... CRC Nursing Assessment: Comments: CRC RN did not require any additional information to process this visit. Abena Ketn MD [address] [place] [address],[address], [place], [address], [employer] 05/14/2022 13:48:00
--- NOTE | 2024-09-05 09:31 | A.OFFVIS_ITS ---
Vital Signs 09/05/24 09:33 Height 6 ft Weight 198 lb 6.656 oz BMI 26.9 BP 120/64 Blood Pressure Location Lt brachial Position Sitting Pulse 96 Pulse Source Monitor Intake Visit Reasons: pre-op colonoscopy / test results Allergies Penicillins (PENICILLINS) Allergy (Unknown, Verified 07/18/24 12:03) UNKNOWN metformin Adverse Reaction (Unknown, Verified 07/18/24 12:03) diarrhea Medication List - Last Reconciled 09/05/24 by Matias Marcelino MD atorvastatin 80 mg PO BEDTIME baclofen 10 mg PO BEDTIME PRN bisacodyl (Dulcolax (bisacodyl)) 20 mg (4 x 5 mg) PO ONCE 1 day blood-glucose sensor (FreeStyle Aurelio 3 Plus Sensor device) As directed every 15 days cholecalciferol (vitamin D3) (Vitamin D3) 50 mcg PO QAM cyclobenzaprine 5 mg PO TID PRN 7 days dabigatran etexilate (Pradaxa) 150 mg PO BID divalproex 1,000 mg PO BEDTIME dulaglutide (Trulicity) 4.5 mg (0.5 mL) subcut QWEEK ezetimibe 10 mg PO QAM fluticasone propionate 50 mcg/actuation 1 spray intranasal DAILY FreeStyle Aurelio 3 [place] (blood-glucose,seismology teacher,cont) for use with freestyle NS insulin regular hum U-500 conc (Humulin R U-500 (Conc) Insulin Kwikpen) Breakfast 55 units, 80 units if over 200 supper 55 units, 70 units if over 200 subcutaneously 2 times a day; 30 days Jardiance (empagliflozin) 25 mg PO QAM 30 days NS lancets (TRUEplus Lancets) USE DIRECTED TO TEST BLOOD SUGAR SIX TIMES DAILY DIRECTED lisinopril 5 mg PO QAM melatonin 1 tab PO BEDTIME PRN omeprazole 40 mg PO QAM PRN primidone 50 mg PO BID simethicone (Gas Relief (simethicone)) 125 mg PO ONCE sotalol 120 mg PO BID sotalol mg PO tamsulosin 0.4 mg PO BEDTIME 30 days HPI Comments Details: Abraham returns for follow-up. I have not seen him in awhile as he has seen our nurse practitioners. To recall, he has had numerous ablations for atrial flutter/fibrillation. Most recently performed in 2022. He has been on various antiarrhythmics at different times including Multaq, flecainide, amiodarone and sotalol. After the last ablation in 2022, it seems that he came to the ER with recurring atrial fibrillation and hence he was continued on sotalol 120 mg b.i.d.. However, he is supposed to follow up with EP to decide on long-term care but seems like that did not happen. Any case, he has been continued on sotalol and he states that he was doing fine without any atrial fibrillation episodes but for the last few days, he is again feeling palpitations. By EKG, he has again atrial fibrillation at a rate of 96/Min. When he does get atrial fibrillation he clearly feels those episodes. Otherwise, he has lost lot of weight. It seems like he has lost more than 80-90 lb. He states he does not know why. He is due to get colonoscopy apparently but it has been delayed many times because of various issues. [facility] Medical History Pre-operative cardiovascular examination Morbid obesity Type 2 diabetes mellitus with unspecified complications Essential hypertension Nonischemic cardiomyopathy Typical atrial flutter Hyperparathyroidism CLAUDIA (obstructive sleep apnea) Vitamin D deficiency Diabetic nephropathy associated with type 2 diabetes mellitus USP (current) use of insulin Hypertension Dyslipidemia Obesity Diabetes type 2, uncontrolled Paroxysmal A-fib Surgical History History of radiofrequency ablation procedure for cardiac arrhythmia Hx of colonoscopy Family History Father Cancer Diabetes CVD (cardiovascular disease) Mother Diabetes Social History Household Members: None Household Members Other:: Alcohol intake: never Patient Tobacco Use Status: Former Tobacco user Substance Use Type: Crack/Cocaine and Marijuana Current occupational status: disabled Current occupation: left handed Review of Systems Const Denies weakness ENT Denies dizziness Card Reports chest pain, Denies chest pain with activity, Denies syncope, Denies rapid heart rate, Denies pedal edema, Denies edema, Denies leg edema, Denies lightheadedness, Reports palpitations, Reports dyspnea, Denies dyspnea on exertion and Denies orthopnea Resp Denies cough, Reports dyspnea and Denies dyspnea on exertion GI Denies hematochezia and Denies change in stool character Musc Denies abnormal gait, Denies muscle cramps, Denies muscle weakness, Denies numbness, Denies radiating pain into limb and Denies tingling Neuro Denies abnormal gait, Denies dizziness, Denies syncope, Denies numbness, Denies tingling and Denies weakness Psych Reports change in appetite Endo Reports palpitations Physical Exam Vital Signs: Last Vital Signs Pulse 96 09/05/24 09:33 BP 120/64 09/05/24 09:33 BMI result Body Mass Index 26.9 Const General: comfortable and no acute distress Orientation/consciousness: patient oriented x3 HEENT Other: Unremarkable Head: Yes normal to inspection Neck Neck: Yes normal visual inspection Chest Chest palpation & inspection: normal inspection of the chest Resp Auscultation: clear to auscultation bilaterally Cardio Palpation: normal PMI Heart sounds: S1 normal heart sound present, S2 normal heart sound present, no gallops, no murmurs and no rubs GI Palpation (GI): Soft to palpation Back/Spine/Pelvis Other: unremarkable Skin General skin exam: no rashes or lesions noted Neuro General: patient oriented x3 Extrem General: Yes normal to inspection Psych Mental Status: mental status grossly normal Office Procedures EKG Details: EKG with atrial fibrillation at a rate of 96/Min. [id number], Complete Assessment & Plan Assessment & Plan (1) Persistent atrial fibrillation: Code(s): I48.19 - Other persistent atrial fibrillation Category: Medical Plan: Prior atrial flutter/fibrillation ablations, around 4-5. Last 2022. By EKG in July 2024, he was not sinus rhythm, but today in atrial fibrillation. He will need to see EP again for ablation. Message sent to Dr. Felton and replied that he will arrange for FU. Continue anticoagulation otherwise. In the echocardiogram, reported normal left atrial size. (2) Typical atrial flutter: Code(s): I48.3 - Typical atrial flutter Category: Medical Plan: Status post ablation. Has had recurrent flutter suspected to be of possible left atrial origin. Overall plan as above. (3) Nonischemic cardiomyopathy: Code(s): I42.8 - Other cardiomyopathies Category: Medical Plan: Has had diminished LVEF at different times in the past. In the last study, LVEF 55-60%. (4) Precordial chest pain: Code(s): R07.2 - Precordial pain Category: Medical Plan: No recent issues. Cardiac catheterization 2012-no significant CAD. Stress MIBI from 2016 unremarkable. Repeat study from March 2024, no clear evidence of ischemia or infarction. Inferior wall assessment suboptimal due to subdiaphragmatic uptake. (5) Type 2 diabetes mellitus with unspecified complications: Code(s): E11.8 - Type 2 diabetes mellitus with unspecified complications Category: Medical Plan: On insulin, Trulicity, Empagliflozin. In spite of all the weight loss, hemoglobin A1c is still high at 9.3%. (6) Morbid obesity: Code(s): E66.01 - Morbid (severe) obesity due to excess calories Category: Medical Plan: He has lost lot of weight. Uncertain etiology. (7) CLAUDIA (obstructive sleep apnea): Code(s): G47.33 - Obstructive sleep apnea (adult) (pediatric) Category: Medical Plan: Not able to use CPAP as it is very inconvenient. We have discussed about this numerous times. (8) Pre-operative cardiovascular examination: Code(s): Z01.810 - Encounter for preprocedural cardiovascular examination Category: Medical Plan: Plans for colonoscopy noted. No clear cardiac contraindications but he has been referred back to EP because of atrial fibrillation. If he is indeed going for another ablation, then timings we will need to be coordinated as ablation we will need uninterrupted anticoagulation before and after. In this context, reasonable to do a Cologuard as an alternative. Coding Level of Care Code Est Pt Level 4 (20228) Complex EM visit Add On G2211 Diagnoses Persistent atrial fibrillation I48.19 Typical atrial flutter I48.3 Nonischemic cardiomyopathy I42.8 Precordial chest pain R07.2 Type 2 diabetes mellitus with unspecified complications E11.8 Morbid obesity E66.01 CLAUDIA (obstructive sleep apnea) G47.33 Pre-operative cardiovascular examination Z01.810 CPT Codes EKG - CPT: 52995-[id number], Complete ([id number])
[2024-09-05 09:33] VITALS: BP 120/64; PULSE 96; BMI 26.9
== END 2024-09-05 10:01 | disposition home or self-care (01) ==
LOC: HO.HCS 09:16
PROVIDERS: PCP Family Medicine; Visit Provider Internal Medicine
DX: I48.19 Other persistent atrial fibrillation (principal); I48.3 Typical atrial flutter; I42.8 Other cardiomyopathies; R07.2 Precordial pain; E11.8 Type 2 diabetes mellitus with unspecified complications; E66.01 Morbid (severe) obesity due to excess calories; G47.33 Obstructive sleep apnea (adult) (pediatric); Z01.810 Encounter for preprocedural cardiovascular examination
CPT/HCPCS: 93010; 99214; G2211

== ENCOUNTER → 2024-09-05 09:15 | Outpatient (BNVA) | payer OTHER, SELFPAY | PROVIDERS: PCP Family Medicine; Visit Provider Internal Medicine | DX: Z01.810 Encounter for preprocedural cardiovascular examination (principal); I48.19 Other persistent atrial fibrillation; I48.3 Typical atrial flutter; I42.8 Other cardiomyopathies; R07.2 Precordial pain; E11.8 Type 2 diabetes mellitus with unspecified complications; E66.01 Morbid (severe) obesity due to excess calories; G47.33 Obstructive sleep apnea (adult) (pediatric); Z68.26 Body mass index [BMI] 26.0-26.9, adult; R94.31 Abnormal electrocardiogram [ECG] [EKG] | CPT/HCPCS: 93005; 99212 ==

== ENCOUNTER 2024-09-27 07:26 | Outpatient (REF) | payer OTHER, SELFPAY ==
--- OUTSIDE RECORDS SUMMARY | 2024-09-27 07:29 | XMS_ITS | Encounter Summary ---
Author Organization [employer] Address [address] [facility] 7t [place] [address] Care Team Providers Care Imagery Intelligence Name Role Phone Hillary Zamora MD Primary Care Provider [phone] Orlando Warner MD Unavailable [phone] Layla Marrufo NP Unavailable Meri Mauricio OD Unavailable [phone] Matias Marcelino MD Unavailable Encounter Details Date Type Department Care Team (Late st Contact Info) Description 04/17/2024 Orders Only [facility] MEDICINE [address] [place], [place] [phone] Hillary Zamora MD [address] [place], [place] [phone] Type 2 diabetes mellitus with hyperglycemia, with [...] housing situation today? I have j luis jacosb 12/22/[address] you li [...] Care Team (Late st Contact Info) Description 10/01/2024 11:00 AM EDT Office Visit [facility] ADULT DENTAL [address] [place] [address] Raquel Olvera [address] [place] [address] 10/03/2024 9:30 AM EDT Office Visit [facility] MEDICINE [address] [place] [address] Hillary Zamora MD [address] [place] [address] documented as of this encounter Visit Diagnoses [...] documented as of this encounter Care Teams Imagery Intelligence Relationship Specialty Start Date End Date Hillary Zamora MD [address] [place] [address] PCP - General Family Medicine 03/07/18 Orlando Warner MD [address] [place] [address] Endocrinology 03/29/24 Layla Marrufo NP [address] [place] [address] Urology 04/05/24 Meri Mauricio OD [address] [place] [address] Optometry 04/17/24 Matias Marcelino MD [address] 3rd [place] [address] Cardiology 09/06/24 Teetee Zacarias PLASTICS ENGINEER Endocrinology 03/29/24 documented as of this encounter
--- OUTSIDE RECORDS SUMMARY | 2024-09-27 07:29 | XMS_ITS | Data Portability ---
Author Organization [employer], [facility] Address [address] [place] [address] Care Team Providers Care Stone Splitter Name Role Phone [facility] Referring Provider [facility] Referring Provider [phone] Assessment Encounter Date Assessment Date Assessment LastModified by Organization Details LastModified Time 05/14/2022 05/14/2022 I provided real -time medical direction via phone for this encounter, and was available for additional phone based assistance as needed. I have reviewed and agree with the Assessment and Plan as documented by the Laser Operator. Patient given the opportunity to ask questions. [...] he has AFib. during the time the script artist was there is heart rate generally stayed [...] As an addendum the patient called his track layer to clarify his dose. He was supposed to be on metoprolol 50 mg twice a day. Upon further discussion with his track layer he was referred to the emergency department [...] tablet,exte nded release 24 hr 2022 023 [facility], [address] [place] [address], [id number], 3 13:41:10 Patient TargetsNo targets recorded. Patient InstructionsNo instructions recorded. Reason for Referral None Reported. Medical Equipment None Reported. Allergies Allergen ID Allergen Name Allergen Category Reaction Reaction Severity Criticality Documentation Date Start Date Code Code System Note Provider Name and Address Organization Details Recorded Time 6917 Product containin g penicilli n (product) medicatio n Not available Not available Not available 01/03/2024 60090 8001 SNOMED Not Available [facility] - production [...] Body temperature Respiratory rate Heart rate Systolic And Diastolic Provider Name and Address Organization Details Last Updated DateTime 3 97 % 97 % 98.4 [degF] 18 /min 108 /min 127/84 mm[Hg] Not Available [facility] - production 3 13:19:44 Social History None recorded. Functional Status None recorded. Mental Status None recorded. Family History Nothing Reported. Medical History No medical history recorded. Past Encounters Encounter ID Performer Location Encounter Start Date Encounter Closed Date Diagnosis/Indication Diagnosis SNOMED-CT Code Diagnosis ICD10 Code Diagnosis Note [id number] Abena Kent MD Main - [facility] [address] [place] [phone] 05/14/2022 13:19:28 05/17/2022 10:39:10 Atrial fibrillation [id number] I48.91 Health Concerns Section Related Observation LastModified by Organization Detai ls LastModified Time None Recorded Concern Status LastModified by Organization Details LastModified Time None Recorded Advance Directives Directive None Recorded Payers Insurance Date Sequence Insurance Name Policy Number Policy Patterson Covered Member ID Patterson Member ID Guarantor Name 05/10/2023 1 [facility] - DOS PRIOR TO 2022 - DUAL ELIGIBLE (MEDICARE REPLACEMENT/ADV ANTAGE - HMO) Abrahamroosevelt Ansari [id number] Abraham Ansari 05/10/2023 1 [facility] - DOS ON OR AFTER 2022 - DUAL ELIGIBLE - LONGTERM OPTIONS AND ONE CARE (MEDICARE REPLACEMENT/ADV ANTAGE - HMO) Abraham Ansari [id number] Abraham Ansari Notes Date Note Type Note Provider Name and Address Organization Details Recorded Time 05/14/2022 text/html HPI: ALLERGIC TO: PCN, METFORMIN. Patient with history of Afib with recent med change reporting HR 120's with slight dizziness. Recently seen 05/12/22 with complaints of chest pain [facility] .................. .................. .................. .................. .................. .................. .................. ............... CRC Nursing Assessment: Comments: CRC RN did not require any additional information to process this visit. Abena Kent MD [address] [place] [address],[address], [place], [address], [facility] 05/14/2022 13:48:00
[2024-09-27 07:42] LABS: MANUAL DIFF FLAG NO
[2024-09-27 08:23] LABS: Hematocrit 43.6 % (42.0-52.0); Hemoglobin 15.0 g/dl (14.0-18.0); Imm Gran Abs Auto 0.02 X10*3/uL (0.00-0.03); Imm Gran Pct Auto 0.4 % (0.0-0.4); Lymphocytes Absolute Auto 1.5 X10*3/uL (1.2-4.9); Mean Corpuscular HGB Conc 34.4 g/dl (31.0-36.0); Mean Corpuscular Hemoglobin 32.4 pg (27.0-33.0); Mean Corpuscular Volume 94.2 fL (80.0-98.0); NRBC Abs Auto 0.000 X10*3/uL (0.0-0.012); NRBC Pct Auto 0.0 /100WBC (0.0-0.2); Platelet Count 182 X10*3/uL (160-400); Red Blood Count 4.63 X10*6/uL (4.60-5.80); White Blood Count 4.9 X10*3/uL (4.8-10.8)
[2024-09-27 09:12] LABS: Alanine Aminotransferase 42 U/L (0-40); Albumin Level 4.6 g/dL (3.5-5.0); Alkaline Phosphatase 72 U/L (39-117); Anion Gap 14 (12-20); Aspartate Amino Transferase 29 U/L (5-37); Blood Urea Nitrogen 12 mg/dL (9-16); Calcium 9.4 mg/dL (8.4-10.2); Carbon Dioxide 29 mmol/L (22-29); Chloride 103 mmol/L (96-108); Cholesterol 121 mg/dL (<200); Estimated Glomerular Filt Rate > 60; HDL Cholesterol 33 mg/dL (>40); Potassium 4.7 mmol/L (3.3-5.1); Sodium 141 mmol/L (135-145); Total Protein 7.1 g/dL (6.5-8.0); Triglycerides 99 mg/dL (<150)
[2024-09-27 09:22] LABS: Prostate Specific Antigen 0.56 ng/mL (<0.05-4.0)
[2024-09-27 09:50] LABS: Thyroid Stimulating Hormone 3.34 uIU/mL (0.32-4.0)
[2024-09-27 10:02] LABS: Folate 11.8 ng/mL (> or = 4.0); Vitamin B12 460 pg/mL (200-900)
== END 2024-09-27 07:27 | disposition home or self-care (01) ==
LOC: HO.LAB 07:26
PROVIDERS: Absent Provider Psychiatry & Neurology Psychiatry; PCP Family Medicine; Visit Provider Nurse Practitioner Family
DX: Z80.42 Family history of malignant neoplasm of prostate (principal); Z79.899 Other long term (current) drug therapy
CPT/HCPCS: 36415; 80053; 80061; 80164; 82306; 82607; 82746; 84153; 84443; 85025

== ENCOUNTER 2024-10-03 13:18 | Outpatient (AMB) | payer OTHER, SELFPAY ==
--- OUTSIDE RECORDS SUMMARY | 2024-10-03 13:50 | XMS_ITS | Encounter Summary ---
Author Organization [employer] Address [address] [facility] 7t [place] [address] Care Team Providers Care Possum Trapper Name Role Phone Hillary Zamora MD Primary Care Provider [phone] Orlando Warner MD Unavailable Layla Marrufo NP Unavailable Meri Mauricio OD Unavailable Matias Marcelino MD Unavailable Encounter Details Date Type Department Care Team (Late st Contact Info) Description 04/17/2024 Orders Only [facility] MEDICINE [address] [place], [place] [phone] Hillary Zamora MD [address] [place], [place] [phone] Type 2 diabetes mellitus with hyperglycemia, with [...] Care Team (Late st Contact Info) Description 12/03/2024 9:00 AM EDT Office Visit [facility] MEDICINE [address] [place] [address] Hillary Zamora MD [address] [place] [phone] documented as of this encounter Visit Diagnoses Diagnosis Type 2 diabetes mellitus with hyperglycemia, with long-term current use of insulin ([facility])- Primary Type 2 diabetes mellitus with hyperosmolarity, uncontrolled (CMS/HCC) Chronic atrial fibrillation (CMS/HCC) Atrial fibrillation Dyslipidemia Other and unspecified hyperlipidemia Primary hypertension Unspecified essential hypertension Benign prostatic hyperplasia without lower urinary tract symptoms documented in this encounter Additional Health Concerns Assessment Noted Time PHQ-9 Depression Total Score: 0 05/25/19 24 10:32 AM EDT documented as of this encounter Care Teams Possum Trapper Relationship Specialty Start Date End Date Hillary Zamora MD [address] [place] [address] PCP - General Family Medicine 03/07/18 Orlando Warner MD [address] [place] [address] Endocrinology 03/29/24 Layla Marrufo NP [address] [place] [address] Urology 04/05/24 Meri Mauricio, GERTRUDE [address] [place] [address] Optometry 04/17/24 Matias Marcelino MD [address] 3rd [place] [address] Cardiology 09/06/24 Teetee Zacarias FACILITY PRACTICE SPECIALIST Endocrinology 03/29/24 documented as of this encounter
--- NOTE | 2024-10-03 14:29 | A.OFFVIS_ITS ---
Intake Visit Reasons: 6 month follow up/ PSA/PVR Intake Note: Patient is present for 6M/PSA/PVR Urology Medication:TAMSULOSIN Antibiotic Allergy:PENICILLIN Blood Thinner:NONE TODAY'S PVR:0ML'S Heading Matcher And Assembler Required: No Allergies Penicillins (PENICILLINS) Allergy (Unknown, Verified 10/03/24 14:30) UNKNOWN metformin Adverse Reaction (Unknown, Verified 10/03/24 14:30) diarrhea PFSH Medical History Pre-operative cardiovascular examination Morbid obesity Type 2 diabetes mellitus with unspecified complications Essential hypertension Nonischemic cardiomyopathy Typical atrial flutter Hyperparathyroidism CLAUDIA (obstructive sleep apnea) Vitamin D deficiency Diabetic nephropathy associated with type 2 diabetes mellitus 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 Hypertension Dyslipidemia Obesity Diabetes type 2, uncontrolled Paroxysmal A-fib Surgical History History of radiofrequency ablation procedure for cardiac arrhythmia Hx of colonoscopy Family History Father Cancer Diabetes CVD (cardiovascular disease) Mother Diabetes Social History Household Members: None Household Members Other:: Alcohol intake: never Patient Tobacco Use Status: Former Tobacco user Substance Use Type: Crack/Cocaine and Marijuana Current occupational status: disabled Current occupation: left handed Office Procedures Post Void Residual Post Residual Void Post Void Residual (PVR): 0 [id number] Void Residual by ultrasound Results AMB Urinalysis, Automated UA Leukoctes 0 Zuleika/uL Last Edit by KARINA Mims on 10/03/24 16:09 UA Nitrite Negative Last Edit by KARINA Mims on 10/03/24 16:09 UA Urobilinogen 0.2 mg/dL Last Edit by KARINA Mims on 10/03/24 16:0 9 UA Protein 0 mg/dL Last Edit by KARINA Mims on 10/03/24 16:09 UA pH 6.0 Last Edit by KARINA Mims on 10/03/24 16:09 UA Blood 0 Will/uL Last Edit by KARINA Mims on 10/03/24 16:09 UA Specific [place] 1.010 Last Edit by KARINA Mims on 10/03/24 16: 09 UA Ketone Positive Last Edit by KARINA Mims on 10/03/24 16:09 UA Bilirubin 0 mg/dL Last Edit by KARINA Mims on 10/03/24 16:09 UA Glucose 1000 mg/dL Last Edit by KARINA Mims on 10/03/24 16:09 Results Reviewed Results Reviewed: Laboratory Last Values Urine pH (Auto) 6.0 10/03/24 16:08 Specific [place] (Auto) 1.010 10/03/24 16:08 Urine Protein (Auto) 0 mg/dL 10/03/24 16:08 Glucose (UA)(Auto) 1000 mg/dL 10/03/24 16:08 Urine Ketones (Auto) Positive 10/03/24 16:08 Urine Blood (Auto) 0 Will/uL 10/03/24 16:08 Urine Nitrite (Auto) Negative 10/03/24 16:08 Urine Bilirubin (Auto) 0 mg/dL 10/03/24 16:08 Urine Urobilinogen (Auto) 0.2 mg/dL 10/03/24 16:08 Leukocyte Esterase (Auto) 0 Zuleika/uL 10/03/24 16:08 Assessment & Plan Assessment & Plan Orders: Orders AMB Urinalysis Automated 10/03/24 Z13.9 - Encounter for screening, unspecified Coding Level of Care Code Left Without Being Seen CPT Codes Post Residual Void - PVR CPT Code: 91643-Uiyp Void Residual by ultrasound ([id number])
== END 2024-10-03 15:31 | disposition left against medical advice (07) ==
LOC: HO.HUSH 13:18
PROVIDERS: PCP Family Medicine; Visit Provider Nurse Practitioner Family
DX: Z13.9 Encounter for screening, unspecified (principal)

== ENCOUNTER → 2024-10-03 13:18 | Outpatient (BNVA) | payer OTHER, SELFPAY | PROVIDERS: PCP Family Medicine; Visit Provider Nurse Practitioner Family | DX: Z13.9 Encounter for screening, unspecified (principal) | CPT/HCPCS: 51798; 81003 ==

== ENCOUNTER 2024-10-16 08:58 | Outpatient (AMB) | payer OTHER, SELFPAY ==
--- NOTE | 2024-10-16 08:59 | MHC.OFFVIS ---
Vital Signs 10/16/24 09:00 Height 6 ft Weight 198 lb 10.184 oz BMI 26.9 BP 96/76 Blood Pressure Location Rt brachial Position Sitting Pulse 152 H Pulse Source Pulse Oximeter Pulse Oximetry (%) 98 Oxygen Delivery Method Room Air Intake Visit Reasons: DMT2 Intake Note: Patient present today to follow up on Type 2 Diabetes Mellitus. Last seen by Teetee Zacarias on 07/18/24. Patient receives Dexcom G7 supplies through: [employer] Last Diabetic Eye exam: Due, has an appointment coming up. Last Podiatry Visit: Does not see a [facility], requesting referral. Random Glucose: 221 mg/dl HgA1C: 9.1% 10/16/2024 Gun Perforator Loader Required: No Accompanied by: Self / Same As Patient Allergies Penicillins (PENICILLINS) Allergy (Unknown, Verified 10/16/24 09:05) UNKNOWN metformin Adverse Reaction (Unknown, Verified 10/16/24 09:05) diarrhea Medication List - Last Reconciled 10/16/24 by Orlando Warner MD atorvastatin 80 mg PO BEDTIME blood sugar diagnostic (FreeStyle Lite Strips) As directed blood-glucose meter (FreeStyle Lite Meter kit) As directed blood-glucose sensor (Dexcom G7 Sensor device) As directed cholecalciferol (vitamin D3) (Vitamin D3) 50 mcg PO QAM cyclobenzaprine 5 mg PO TID PRN 7 days dabigatran etexilate (Pradaxa) 150 mg PO BID divalproex 1,000 mg PO BEDTIME dulaglutide (Trulicity) 4.5 mg (0.5 mL) subcut QWEEK ezetimibe 10 mg PO QAM insulin regular hum U-500 conc (Humulin R U-500 (Conc) Insulin Kwikpen) Breakfast 55 units, 80 units if over 200 supper 55 units, 70 units if over 200 subcutaneously 2 times a day; 30 days Jardiance (empagliflozin) 25 mg PO QAM 30 days NS lancets (FreeStyle Lancets) As directed lancets (TRUEplus Lancets) USE DIRECTED TO TEST BLOOD SUGAR SIX TIMES DAILY DIRECTED lisinopril 5 mg PO QAM melatonin 1 tab PO BEDTIME PRN omeprazole 40 mg PO QAM PRN primidone 50 mg PO BID sotalol 120 mg PO BID tamsulosin 0.4 mg PO BEDTIME 30 days HPI Comments Details: Patient is 58-year-old male with DM type 2 diagnosed 2006, who presents for management of diabetes. He was last seen by Teetee Tinaejro NP on 07/18/24 pidemia, HTN, CLAUDIA on BIPAP, h/o low Vit D, depression, OA.. Micro and macrovascular complications: Nephropathy Patient previously intolerant to metformin. Intolerant of Jardiance due to yeast infection. Actos was stopped few years ago he has mild decrease ejection fraction. Diabetes medications: Humulin U 500 55 units for breakfast 80 units for breakfast and 70 units for dinner 3 Xa day if >200, Trulicity 4.5 mg Qwkly , Jardiance 25 mg daily. Admits to non-compliance with insulin Dexcom download shows he is using the sensor 90% of the time. Average glucose is 246 with G mi of 9.2%. Standard deviation is 59 with coefficient of variation 24.1%. 15% of the blood sugars are in range with 85% hyperglycemia and no hypoglycemia. Pen shows persistent hyperglycemia throughout the day without any spikes and post-prandial blood sugars Symptoms reported: denies numbness, tingling, cramping in lower extremities Hypoglycemia: Exercise: not walking as much . Home Performance Consultant - CDE education: in past [facility]: long-time ago No nephropathy 12/07/2023 eGFR>60 20 microalbumin 7.0 Ophthalmology evaluation - last appt in 03/2024 has appt next mo no retinopathy but cataracts HLD on statin and Zetia no recent lipid profile-pending [facility] Medical History Pre-operative cardiovascular examination Morbid obesity Type 2 diabetes mellitus with unspecified complications Essential hypertension Nonischemic cardiomyopathy Typical atrial flutter Hyperparathyroidism CLAUDIA (obstructive sleep apnea) Vitamin D deficiency Diabetic nephropathy associated with type 2 diabetes mellitus 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 Hypertension Dyslipidemia Obesity Diabetes type 2, uncontrolled Paroxysmal A-fib Surgical History History of radiofrequency ablation procedure for cardiac arrhythmia Hx of colonoscopy Family History Father Cancer Diabetes CVD (cardiovascular disease) Mother Diabetes Social History Household Members: None Household Members Other:: Alcohol intake: never Patient Tobacco Use Status: Former Tobacco user Substance Use Type: Crack/Cocaine and Marijuana Current occupational status: disabled Current occupation: left handed Physical Exam Vital Signs: Last Vital Signs Pulse 152 H 10/16/24 09:00 BP 96/76 10/16/24 09:00 Pulse Ox 98 10/16/24 09:00 Oxygen Delivery Method Room Air 10/16/24 09:00 BMI result Body Mass Index 26.9 Absence of Cushingoid features. Absence of acromegalic features. Neck exam reveals nl size thyroid about 15 gms. No thyroid nodules palpable. No carotid bruits present. Lungs CTA. Heart S1 S2, Reg R/R. No M/R/ G. Skin exam reveals absence of vitiligo or acanthosis nigricans. Abdominal exam reveals Soft NT/ND with NA BS. No organomegaly present. Neck Other: . Extrem Other: Visual exam of foot performed. No ulcerations or open lesions. No onchomycosis, no callouses.Pulses 2 + distally Sensation intact to monofilament exam. Vibratory sensation sensed is i decreased with 128 Hz tuning fork Results AMB Hemoglobin A1c AMB Hemoglobin A1c 9.1 % Last Edit by ANGIE Rader on 10/16/24 09:28 Results Reviewed Results Reviewed: Laboratory Last Values Glucose (Clinic) 221 mg/dL (60-115) H 10/16/24 09:14 Assessment & Plan Assessment & Plan (1) Diabetes type 2, uncontrolled: Code(s): E11.65 - Type 2 diabetes mellitus with hyperglycemia Category: Medical Qualifiers: Glycemic state: with hyperglycemia Qualified Code(s): E11.65 - Type 2 diabetes mellitus with hyperglycemia Plan: This is a 56-year-old male with a history of type 2 diabetes being treated with Trulicity, Jardiance and U-500 insulin with poor glycemic control and known microvascular complications namely nephropathy. The plan is to stressed compliance with injecting insulin to the patient. Would not increase U-500 to The plan is to have the patient follow-up with the visual educator. If he is compliant with the insulin injections and glycemic control is still not obtain We could also consider the idea of using of either the U-500 insulin or U 100 in insulin pump either Medtronic or tandem. Orders: Orders AMB Hemoglobin A1c Today E11.65 - Type 2 diabetes mellitus with hyperglycemia Referrals Podiatry Referral E11.65 - Type 2 diabetes mellitus with hyperglycemia Coding Level of Care Code Est Pt Level 4 (39337) Complex EM visit Add On G2211 Diagnoses Uncontrolled type 2 diabetes mellitus with hyperglycemia E11.65 Glycemic state: with hyperglycemia
[2024-10-16 09:00] VITALS: BP 96/76; PULSE 152; O2SAT 98; BMI 26.9
[2024-10-16 09:21] LABS: Glucose, Whole Blood 221 mg/dL (60-115)
--- OUTSIDE RECORDS SUMMARY | 2024-10-16 09:25 | XMS_ITS | Encounter Summary ---
Author Organization [employer] Address [address] [place] [address] Care Team Providers Care Funeral Pre Arrangement Specialist Name Role Phone Hillary Zamora MD Primary Care Provider [phone] Orlando Warner MD Unavailable Layla Marrufo NP Unavailable Meri Mauricio OD Unavailable Matias Marcelino MD Unavailable Encounter Details Date Type Department Care Team (Late st Contact Info) Description 04/17/2024 Orders Only [facility] [address] [place], [place] [phone] Hillary Zamora MD [address] [place], [place] [phone] Type 2 diabetes mellitus with hyperglycemia, with [...] Description 12/03/2024 9:00 AM EDT Office Visit [facility] [address] [place] [id number] Hillary Zamora MD [address] [place] [phone] documented as of this encounter Visit Diagnoses Diagnosis Type 2 diabetes mellitus with hyperglycemia, with long-term current use of insulin ([facility])- Primary Type 2 diabetes mellitus with hyperosmolarity, uncontrolled (CMS/HCC) Chronic atrial fibrillation (CMS/HCC) Atrial fibrillation Dyslipidemia Other and unspecified hyperlipidemia Primary hypertension Unspecified essential hypertension Benign prostatic hyperplasia without lower urinary tract symptoms documented in this encounter Additional Health Concerns Assessment Noted Time PHQ-9 Depression Total Score: 0 05/25/19 24 10:32 AM EDT documented as of this encounter Care Teams Funeral Pre Arrangement Specialist Relationship Specialty Start Date End Date Hillary Zamora MD [address] [place] [address] PCP - General Family Medicine 03/07/18 Orlando Warner MD [address] [place] [address] Endocrinology 03/29/24 Layla Marrufo NP [address] [place] [address] Urology 04/05/24 Meri Mauricio, GERTRUDE [address] [place] [address] Optometry 04/17/24 Matias Marcelino MD [address] [place] [address] Cardiology 09/06/24 Teetee Zacarias LANDMAN Endocrinology 03/29/24 documented as of this encounter
== END 2024-10-16 09:37 | disposition home or self-care (01) ==
LOC: HO.ENCR 08:58
PROVIDERS: PCP Family Medicine; Visit Provider Internal Medicine Endocrinology, Diabetes & Metabolism
DX: E11.65 Type 2 diabetes mellitus with hyperglycemia (principal)
CPT/HCPCS: 99214; G2211

== ENCOUNTER → 2024-10-16 08:58 | Outpatient (BNVA) | payer OTHER, SELFPAY | PROVIDERS: PCP Family Medicine; Visit Provider Internal Medicine Endocrinology, Diabetes & Metabolism | DX: E11.65 Type 2 diabetes mellitus with hyperglycemia (principal); E11.21 Type 2 diabetes mellitus with diabetic nephropathy; Z79.4 Long term (current) use of insulin | CPT/HCPCS: 82947; 83036; 99212 ==

== ENCOUNTER 2024-11-12 11:35 | Emergency (ER) | payer OTHER, SELFPAY ==
--- NOTE | ~2024-11-12 | CT_ITS ---
EXAMINATION: CT CERVICAL SPINE WITHOUT CONTRAST CLINICAL INFORMATION: Head strike, pain. COMPARISON: May 11, 2023 TECHNIQUE: Contiguous axial images through the cervical spine using 3 mm collimation with bone and soft tissue algorithm. Sagittal and coronal reformatted images acquired. DLP: 531.[address] examination was performed using dose optimization techniques as appropriate, variously including the following: *Automated exposure control *Adjustment of mA and/or kV according to patient size (this includes techniques or standardized protocols for targeted exams where dose is matched to indication/reason for exam; i.e. extremities or head) *Use of iterative reconstruction technique FINDINGS: Craniocervical junction is intact with normal alignment between the occipital condyles and the lateral masses of C1. Multilevel marginal osteophyte formation and endplate sclerosis subchondral cyst formation at C3-4, C4-5, C5-6, C6-7 levels. No gross malalignment between the vertebral bodies or joints. C1 is intact. C2 is intact. C3 is intact. C4 is intact. Facet joint hypertrophy. C5 is intact. Bilateral facet hypertrophy. C6 is intact. Bilateral facet joint hypertrophy. C7 is intact. No prevertebral compartment hematoma. Calcified plaques in the proximal right ICA. Thyroid gland is not enlarged. Paraseptal emphysematous changes, both lung apices. Tympanic cavities and mastoid air cells are aerated. Normal position of the cerebellar tonsils. CT/CT cervical spine wo IV con IMPRESSION: Multilevel cervical spondylosis without acute fracture or trauma-related listhesis. Fleischner guidelines were followed. Electronically signed by: George Baum MD 11/12/2024 01:27 PM EDT
--- NOTE | ~2024-11-12 | CT_ITS ---
EXAMINATION: CT HEAD WITHOUT IV CONTRAST HISTORY: head strike, pain, on AC. TECHNIQUE: Unenhanced helical CT of the head was performed per standard departmental protocol. Coronal and sagittal reformats of the head were also evaluated. One or more of the following techniques was used for dose reduction: Automated exposure control, adjustment of the mA and/or kV according to patient size, use of iterative reconstruction technique. DLP: 726 mGy-cm COMPARISON: There are no prior studies available for comparison. FINDINGS: BRAIN: There is mild prominence of the ventricular system and cortical sulci, consistent with atrophy. Scattered periventricular and subcortical white matter hypodensities are noted which are nonspecific, but often seen in the setting of small vessel ischemic disease. There is no mass effect or midline shift. No intra- or extra-axial fluid collections are identified. SINUSES: The visualized paranasal sinuses are clear. The mastoid air cells and middle ear cavities are well pneumatized. ORBITS: The visualized orbits are unremarkable. BONES/SOFT TISSUES: There is right frontal soft tissue swelling. The calvarium is intact. No suspicious lytic or sclerotic lesions. CT/CT head/brain wo IV con IMPRESSION: Right frontal soft tissue swelling. No acute intracranial abnormality. Electronically signed by: Orlando Sherman MD 11/12/2024 01:26 PM EDT
--- NOTE | ~2024-11-12 | XR_ITS ---
EXAMINATION: XR RIBS 3 VIEWS MINIMUM WITH CHEST RIGHT HISTORY: fall, lower rib pain COMPARISON: Comparison is made with the prior examination of the chest dated 09/04/2022. FINDINGS: A single PA view of the chest of 6 views of the right ribs are submitted. The lungs are expanded and clear. There is no pleural effusion, pneumothorax, or pulmonary vascular congestion. The heart is normal in size. The right ribs are intact. No fracture is seen. XR/XR ribs RT min 3V w CXR1V IMPRESSION: No acute cardiopulmonary abnormality. No evidence of fracture of the right ribs. Electronically signed by: Orlando Sherman MD 11/12/2024 01:47 PM EDT
[2024-11-12 11:52] VITALS: BP 132/60; PULSE 93; RESP 14; TEMP 36.6; O2SAT 99; BMI 26.5
--- NOTE | 2024-11-12 11:54 | ED.GENADULT ---
HPI - General Adult General Chief complaint: Fall Stated complaint: fall today head inj, leg/ back pain Time Seen by Provider: 11/12/24 12:30 Source: patient Mode of arrival: ambulatory Limitations: no limitations History of Present Illness ED Provider: HPI narrative: 59-year-old presenting with dizziness, nonsyncopal fall with trip and fall, likely LOC, hematoma to the right forehead, as well as right-sided ribcage pain, states no palpitations no chest pain no shortness of breath prior to the fall. He stepped backwards and tripped and fell. On Pradaxa for AFib Related Data Home Medications ?Medication ?Instructions ?Recorded ?Confirmed omeprazole 40 mg capsule,delayed 40 mg PO QAM PRN Heartburn 01/03/20 10/16/24 release primidone 50 mg tablet 50 mg PO BID 01/20/21 10/16/24 dabigatran etexilate 150 mg 150 mg PO BID 11/03/21 10/16/24 capsule (Pradaxa) divalproex 500 mg tablet,delayed 1,000 mg PO BEDTIME 05/12/22 10/16/24 release melatonin 10 mg tablet 1 tab PO BEDTIME PRN Insomnia 05/12/22 10/16/24 sotalol 120 mg tablet 120 mg PO BID 09/09/22 10/16/24 blood sugar diagnostic (FreeStyle 10/16/24 10/16/24 Lite Strips) blood-glucose meter (FreeStyle 10/16/24 10/16/24 Lite Meter kit) blood-glucose sensor ([employer] G7 10/16/24 10/16/24 Sensor device) lancets 28 gauge (FreeStyle 10/16/24 10/16/24 Lancets) Previous Rx's ?Medication ?Instructions ?Recorded atorvastatin 80 mg tablet 80 mg PO BEDTIME #90 tabs 04/19/23 cyclobenzaprine 5 mg tablet 5 mg PO TID PRN muscle spasm 7 05/06/23 days #21 tabs lancets 33 gauge (TRUEplus Lancets) #200 ea 02/21/24 insulin regular hum U-500 conc 500 See Rx Instructions subcut TID 30 03/28/24 unit/mL(3 mL) subcut pen (Humulin days #12 mL R U-500 (Conc) Insulin Kwikpen) cholecalciferol (vitamin D3) 50 50 mcg PO QAM #90 caps 05/24/24 mcg (2,000 unit) capsule (Vitamin D3) ezetimibe 10 mg tablet 10 mg PO QAM #30 tabs 06/19/24 lisinopril 5 mg tablet 5 mg PO QAM #90 tabs 06/19/24 Jardiance 25 mg tablet 25 mg PO QAM 30 days #30 tabs 06/29/24 (empagliflozin) dulaglutide 4.5 mg/0.5 mL 4.5 mg (0.5 mL) subcut QWEEK #2 mL 07/18/24 subcutaneous pen injector (Trulicity) tamsulosin 0.4 mg capsule 0.4 mg PO BEDTIME 30 days #30 caps 10/22/24 Allergies Allergy/AdvReac Type Severity Reaction Status Date / Time Penicillins (PENICILLINS) Allergy Unknown UNKNOWN Verified 11/12/24 11:54 metformin AdvReac Unknown diarrhea Verified 11/12/24 11:54 Review of Systems Constitutional: Constitutional: Reports as per [facility] Past Medical History Medical History Pre-operative cardiovascular examination Morbid obesity Type 2 diabetes mellitus with unspecified complications Essential hypertension Nonischemic cardiomyopathy Typical atrial flutter Hyperparathyroidism CLAUDIA (obstructive sleep apnea) Vitamin D deficiency Diabetic nephropathy associated with type 2 diabetes mellitus correction (current) use of insulin Hypertension Dyslipidemia Obesity Diabetes type 2, uncontrolled Paroxysmal A-fib Surgical History History of radiofrequency ablation procedure for cardiac arrhythmia Hx of colonoscopy Family History Family History Father Cancer Diabetes CVD (cardiovascular disease) Mother Diabetes Social History Social History Household Members: None Household Members Other:: Alcohol intake: never Patient Tobacco Use Status: Former Tobacco user Substance Use Type: Crack/Cocaine and Marijuana Advance Directives: Yes Advance Directives Information Provided: Yes Advance Directives on File: No Do you have a plan to hurt others: No Plan Current occupational status: disabled Current occupation: left handed Physical Exam ED Vital Signs: Vital Signs - 24 hr 11/12/24 11:52 Temperature 98 F Pulse Rate 93 Respiratory Rate 14 Blood Pressure 132/60 Pulse Oximetry 99 Oxygen Delivery Method Room Air BMI result Body Mass Index 26.5 Const Other: Gen: ?Overall well-appearing patient, right forehead frontal hematoma HEENT: PERRLA, EOMI, MMM, Neck: Supple, no LAD CV: RRR, radial pulses +2 bilaterally Resp: ?No wheezing rales rhonchi no stridor moving air well, right posterior ribcage pain without subcutaneous emphysema Abd: ?Bowel sounds are present, no tenderness no rebound no rigidity, pelvis is stable MSK: FROM, strength 5/5 all extremities, no deformities bilateral upper or lower extremities Skin: Warm, dry, intact, Neuro: ?Alert and oriented x3, moving upper and lower extremities symmetrically, no obvious facial asymmetry noted Course Course Course Narrative: Rapid medical examination performed in triage by Farhana Silverman PA-C. Patient is a 59 year old assigned male at presenting to the emergency department with rib pain and a headache after a fall. Patient states that he tripped and fell, does not remember the incident, and is on an anti-coagulation medication. Detailed physical exam and review of systems are deferred to the nitriles lab technician. Imaging ordered. Patient placed back in the waiting room pending room availability and results. Medications Administered Discontinued Medications Generic Name Dose Route Start Last Admin Trade Name Carlos PRN Reason Stop Dose Admin Acetaminophen 975 mg 11/12/24 12:34 11/12/24 12:51 Acetaminophen 325 Mg Tablet PO 11/12/24 12:35 975 mg ONCE ONE Administration Oxycodone HCl 10 mg 11/12/24 12:34 11/12/24 12:52 Oxycodone Hcl Immed Release 5 Mg Tablet PO 11/12/24 12:35 10 mg ONCE ONE Administration Medical Decision Making Medical Decision Making [facility] Narrative: 12:37 PM 11/12/2024 (Dr. Juan Carlos Patricio): Considerations for workup as below, we will obtain imaging to evaluate for traumatic injuries to the head and neck as well as to evaluate for rib fractures and no pneumothorax, he is otherwise stable, no evidence for long bone injuries to suspect hip fracture or proximal humerus fractures, this was nonsyncopal fall nothing to suspect syncope such as chest pain shortness of breath prior to the fall Differential Diagnosis Differential Diagnoses: The differential diagnosis associated with the presentation includes (Syncope, near-syncope, brain injury, cervical traumaRib fractures, pneumothorax) Admission/Observation Consideration of admission/observation: Escalation of care including admission/observation considered Lab Data MDM Lab Attestation statement: I reviewed the patient's lab results. 11/12/24 12:30 11/12/24 12:30 Labs: Lab Results 11/12/24 Range/Units 12:30 WBC 5.4 (4.8-10.8) X10*3/uL RBC 4.33 L (4.60-5.80) X10*6/uL Hgb 14.1 (14.0-18.0) g/dl Hct 40.5 L (42.0-52.0) % MCV 93.5 (80.0-98.0) fL MCH 32.6 (27.0-33.0) pg MCHC 34.8 (31.0-36.0) g/dl RDW 13.0 (11.0-16.0) % Plt Count 171 (160-400) X10*3/uL MPV 9.5 (9.4-12.4) fL Immature Gran % (Auto) 0.4 (0.0-0.4) % Neut % (Auto) 63.1 (45-73) % Lymph % (Auto) 27.6 (20-40) % Schleicher % (Auto) 6.6 (2-11) % Eos % (Auto) 1.7 (0-4) % Baso % (Auto) 0.6 (0-2) % Lymph # (Auto) 1.5 (1.2-4.9) X10*3/uL Schleicher # (Auto) 0.4 (0.1-1.2) X10*3/uL Eos # (Auto) 0.1 (0.0-0.4) X10*3/uL Baso # (Auto) 0.0 (0.0-0.2) X10*3/uL Abs Immat Gran (auto) 0.02 (0.00-0.03) X10*3/uL Absolute Neuts (auto) 3.4 (2.0-8.3) x10*3/uL Absolute Nucleated RBC 0.000 (0.0-0.012) X10*3/uL Nucleated RBC % (auto) 0.0 (0.0-0.2) /100WBC PT 14.6 H (10.9-12.4) SEC INR 1.3 H (0.9-1.1) Sodium 141 (135-145) mmol/L Potassium 4.6 (3.3-5.1) mmol/L Chloride 108 (96-108) mmol/L Carbon Dioxide 25 (22-29) mmol/L Anion Gap 13 (12-20) BUN 11 (9-16) mg/dL Creatinine 0.79 (0.5-1.4) mg/dL Estim Creat Clear Calc 107.7 Estimated GFR > 60 Random Glucose 173 H (60-115) mg/dL Calcium 9.2 (8.4-10.2) mg/dL Total Bilirubin 0.7 (0.0-1.0) mg/dL AST 27 (5-37) U/L ALT 29 (0-40) U/L Alkaline Phosphatase 60 (39-117) U/L Total Protein 6.5 (6.5-8.0) g/dL Albumin 4.2 (3.5-5.0) g/dL Independent Interpretation I performed an independent interpretation of an: Plain X-Ray (No obvious fractures, no pneumothorax) and CT Scan (No obvious brain lead, arthritic changes mostly in the C6-C7 area T1 area without obvious fractures) Radiology Impression Discussion of test interpretation with radiology: I have reviewed the radiologist's reading. (No acute findings) Radiologist Impression: XR/XR ribs RT min 3V w CXR1V IMPRESSION: No acute cardiopulmonary abnormality. No evidence of fracture of the right ribs Prescription Management I considered prescription management with: Pain Medication Discharge Plan Discharge Clinical Impression: Contusion of head Patient Disposition: Home, Self-Care Additional Instructions: You sustained contusion to the head, head CT brain and cervical spine with a arthritic changes in the spine no acute injuries, you also had x-rays of the ribs to make sure that no fractures, you have a contusion but no fractures, I recommend icing the area over the head and, and taking Tylenol 975 mg every 6 hours as needed for pain. Prescriptions: No Action atorvastatin 80 mg tablet 80 mg PO BEDTIME Qty: 90 3RF (DME) lancets [TRUEplus Lancets] 33 gauge misc See Rx Instructions .ROUTE .COMPLEX Qty: 200 2RF Dose Instruction: USE DIRECTED TO TEST BLOOD SUGAR SIX TIMES DAILY DIRECTED Rx Instructions: USE DIRECTED TO TEST BLOOD SUGAR SIX TIMES DAILY DIRECTED cholecalciferol (vitamin D3) [Vitamin D3] 50 mcg (2,000 unit) capsule 50 mcg PO QAM Qty: 90 5RF ezetimibe 10 mg tablet 10 mg PO QAM Qty: 30 5RF lisinopril 5 mg tablet 5 mg PO QAM Qty: 90 1RF Jardiance 25 mg tablet 25 mg PO QAM 30 Days Qty: 30 5RF tamsulosin 0.4 mg capsule 0.4 mg PO BEDTIME 30 Days Qty: 30 2RF Pradaxa 150 mg capsule 150 mg PO BID divalproex 500 mg tablet,delayed release (DR/EC) 1,000 mg PO BEDTIME melatonin 10 mg tablet 1 tab PO BEDTIME PRN (Reason: Insomnia) cyclobenzaprine 5 mg tablet 5 mg PO TID PRN (Reason: muscle spasm) 7 Days Qty: 21 0RF omeprazole 40 mg capsule,delayed release(DR/EC) 40 mg PO QAM PRN (Reason: Heartburn) primidone 50 mg tablet 50 mg PO BID sotalol 120 mg tablet 120 mg PO BID Trulicity 4.5 mg/0.5 mL pen injector 4.5 mg subcut QWEEK Qty: 2 5RF Humulin R U-500 (Conc) Kwikpen 500 unit/mL (3 mL) insulin pen See Rx Instructions subcut TID 30 Days Qty: 12 2RF Rx Instructions: Breakfast 55 units, 80 units if over 200 supper 55 units, 70 units if over 200 subcutaneously 2 times a day; (DME) Dexcom G7 Sensor Device See Rx Instructions .Route Rx Instructions: As directed (DME) FreeStyle Lite Strips Strip See Rx Instructions .Route Rx Instructions: As directed (DME) blood-glucose meter [FreeStyle Lite Meter] Kit See Rx Instructions .Route Rx Instructions: As directed (DME) lancets [FreeStyle Lancets] 28 gauge misc See Rx Instructions .Route Rx Instructions: As directed Referrals: Hillary Zamora MD [Primary Care Provider, Family Practice] - 1 week Print Language: Italian
[2024-11-12 12:34] LABS: MANUAL DIFF FLAG NO
[2024-11-12 12:36] LABS: Hematocrit 40.5 % (42.0-52.0); Hemoglobin 14.1 g/dl (14.0-18.0); Imm Gran Abs Auto 0.02 X10*3/uL (0.00-0.03); Imm Gran Pct Auto 0.4 % (0.0-0.4); Lymphocytes Absolute Auto 1.5 X10*3/uL (1.2-4.9); Mean Corpuscular HGB Conc 34.8 g/dl (31.0-36.0); Mean Corpuscular Hemoglobin 32.6 pg (27.0-33.0); Mean Corpuscular Volume 93.5 fL (80.0-98.0); NRBC Abs Auto 0.000 X10*3/uL (0.0-0.012); NRBC Pct Auto 0.0 /100WBC (0.0-0.2); Platelet Count 171 X10*3/uL (160-400); Red Blood Count 4.33 X10*6/uL (4.60-5.80); White Blood Count 5.4 X10*3/uL (4.8-10.8)
[2024-11-12 12:44] LABS: INTERNATIONAL NORM RATIO 1.3 (0.9-1.1); Prothrombin Time 14.6 SEC (10.9-12.4)
[2024-11-12 12:48] LABS: Alanine Aminotransferase 29 U/L (0-40); Albumin Level 4.2 g/dL (3.5-5.0); Alkaline Phosphatase 60 U/L (39-117); Anion Gap 13 (12-20); Aspartate Amino Transferase 27 U/L (5-37); Blood Urea Nitrogen 11 mg/dL (9-16); Calcium 9.2 mg/dL (8.4-10.2); Carbon Dioxide 25 mmol/L (22-29); Chloride 108 mmol/L (96-108); Creatinine Clr Calc Pharmacy 107.7; Estimated Glomerular Filt Rate > 60; Potassium 4.6 mmol/L (3.3-5.1); Sodium 141 mmol/L (135-145); Total Protein 6.5 g/dL (6.5-8.0)
[2024-11-12] MEDS: oxyCODONE HCl Immed Release 5 MG TABLET 10 MG PO (12:52)
[2024-11-12 13:55] VITALS: BP 119/75; PULSE 68; RESP 14; TEMP 36.8; O2SAT 99
[2024-11-12 13:58] VITALS: BP 120/69; PULSE 82; RESP 14; RESP 16; TEMP 36.9; O2SAT 99
--- OUTSIDE RECORDS SUMMARY | 2024-11-12 14:50 | XMS_ITS | Encounter Summary ---
Author Organization [employer] [facility] Address [address] [place] [address] Care Team Providers Care Business Office Director Name Role Phone Hillary Zamora MD Primary Care Provider + [phone] Orlando Warner MD Unavailable [phone] Layla Marrufo NP Unavailable Meri Mauricio OD Unavailable [phone] Matias Marcelion MD Unavailable [phone] Encounter Details Date Type Department Care Team (Latest Contact Info) Description 12/23/[address] [facility] CONVERSIONS Dental, Provider, DDS Social History [...] Description 12/03/2024 9:00 AM EDT Office Visit [facility] [address] [place], [place] [phone] Hillary Zamora MD [address] [place], [place] [phone] documented as of this encounter Visit Diagnoses Not on filedocumented in this encounter Care Teams Business Office Director Relationship Specialty Start Date End Date Hillary Zamora MD [address] [place] [address] PCP - General Family Medicine 03/07/18 Orlando Warner MD [address] [place] [address] Endocrinology 03/29/24 Layla Marrufo NP [address] [place] [address] Urology 04/05/24 Meri Mauricio OD [address] [place] [address] Optometry 04/17/24 Matias Marcelino MD [address] [place] [address] Cardiology 09/06/24 Teetee Zacarias ARCHITECTURAL JOB CAPTAIN Endocrinology 03/29/24 documented as of this encounter
--- OUTSIDE RECORDS SUMMARY | 2024-11-12 14:50 | XMS_ITS | Encounter Summary ---
Author Organization [employer] Address [address] [facility] 7t [place] [address] Care Team Providers Care Chief Executive Name Role Phone Hillary Zamora MD Primary Care Provider [phone] Orlando Warner MD Unavailable [phone] Layla Marrufo NP Unavailable Meri Mauricio OD Unavailable Matias Marcelino MD Unavailable Encounter Details Date Type Department Care Team (Late st Contact Info) Description 04/17/2024 Orders Only [facility] [address] [place], [place] [phone] Hillary Zamora MD [address] [place], [place] [phone] Type 2 diabetes mellitus with hyperglycemia, with [...] Description 12/03/2024 9:00 AM EDT Office Visit [facility] [address] [place] [phone] Hillary Zamora MD [address] [place] [phone] documented as of this encounter Visit Diagnoses Diagnosis Type 2 diabetes mellitus with hyperglycemia, with long-term current use of insulin ([facility])- Primary Type 2 diabetes mellitus with hyperosmolarity, uncontrolled (CMS/HCC) Chronic atrial fibrillation (CMS/HCC) Atrial fibrillation Dyslipidemia Other and unspecified hyperlipidemia Primary hypertension Unspecified essential hypertension Benign prostatic hyperplasia without lower urinary tract symptoms documented in this encounter Additional Health Concerns Assessment Noted Time PHQ-9 Depression Total Score: 0 05/25/19 24 10:32 AM EDT documented as of this encounter Care Teams Chief Executive Relationship Specialty Start Date End Date Hillary Zamora MD [address] [place] [address] PCP - General Family Medicine 03/07/18 Orlando Warner MD [address] [place] [address] Endocrinology 03/29/24 Layla Marrufo NP [address] [place] [address] Urology 04/05/24 Meri Mauricio, GERTRUDE [address] [place] [address] Optometry 04/17/24 Matias Marcelino MD [address] 3rd [place] [address] Cardiology 09/06/24 Teetee Zacarias GLUE MOUNTER OPERATOR Endocrinology 03/29/24 documented as of this encounter
--- OUTSIDE RECORDS SUMMARY | 2024-11-12 14:50 | XMS_ITS | Encounter Summary ---
Author Organization [employer] Address [address] [facility] 7t [place] [address] Care Team Providers Care Cardiac Sonographer Name Role Phone Ochiltree, Hillary ONTIVEROS Primary Care Provider [phone] Orlando Warner MD Unavailable [phone] Layla Marrufo NP Unavailable Meri Mauricio OD Unavailable [phone] Matias Marcelino MD Unavailable [phone] Encounter Details Date Type Department Care Team (Late st Contact Info) Description 11/12/2024 Orders Only GENERIC EXTERNAL DATA DEPARTMENT Provider, [...] Description 12/03/2024 9:00 AM EDT Office Visit [facility] [address] [place] [phone] Hillary Zamora MD [address] [place], [place] [phone] documented as of this encounter Procedures Procedure Name Priority Date/Time Associated Diagnosis Comments XR RIBS 3 VIEWS RIGHT W CHEST 1 VIEW Routine 11/12/2024 1:[address] CERVICAL SPINE WO CONTRAST Routine 11/12/2024 12:[address] HEAD WO CONTRAST Routine 11/12/2024 1 2:56 PM EDT CBC WITH AUTO DIFFERENTIAL Routine 11/12/2024 12:30 PM EDT PROTHROMBIN TIME-INR Routine 11/12/2024 12:30 PM EDT COMPREHENSIVE METABOLIC PANEL Routine 11/12/2024 12:30 PM EDT documented in this encounter Results * XR Ribs 3 Views Right with Chest 1 View (11/12/2024 1:30 PM EDT) Anatomical Region Laterality Modality Radiographic Claire ging 11/12/2024 1:30 PM EDT Narrative 11/12/2024 1:49 PM EDT [address] [address] XRay Report Signed Patient: Abraham Hoover MR#: [id number] : 1965 Acct:[id number] Age/Sex: 59 / M ADM Date: 11/12/24 Loc: HO.ED Attending Dr: Ordering Physician: Juan Carlos Patricio DO Date of Service: 11/12/24 Procedure(s): XR ribs RT min 3V w CXR1V Accession Number(s): [id number] cc: Hillary Zamora MD; Juan Carlos Patricio DO Reason for Exam: fall, lower rib pain EXAMINATION: XR RIBS 3 VIEWS MINIMUM WITH CHEST RIGHT HISTORY: fall, lower rib pain COMPARISON: Comparison is made with the prior examination of the chest dated 09/04/2022. FINDINGS: A single PA view of the chest of 6 views of the right ribs are submitted. The lungs are expanded and clear. There is no pleural effusion, pneumothorax, or pulmonary vascular congestion. The heart is normal in size. The right ribs are intact. No fracture is seen. XR/XR ribs RT min 3V w CXR1V IMPRESSION: No acute cardiopulmonary abnormality. No evidence of fracture of the right ribs. Electronically signed by: Orlando Sherman MD 11/12/2024 01:47 PM EDT Dictated By: Orlando Sherman MD Signed By: <Electronically signed by Orlando Sherman MD in OV> 11/12/24 1347 DD/ 1330 TD/TT: 11/12/24 1339 Internal Specialist: Procedure Note Ramonater, Roscoe - 11/12/[address] [address] XRay Report Signed Patient: Trace HooverR#: [id number] : 1965Acct:[id number] Age/Sex: 59 / MADM Date: 11/12/24 Loc: HO.ED Attending Dr: Ordering Physician: Juan Carlos Patricio DO Date of Service: 11/12/24 Procedure(s): XR ribs RT min 3V w CXR1V Accession Number(s): [id number] cc: Hillary Zamora MD; Juan Carlos Patricio DO Reason for Exam: fall, lower rib pain EXAMINATION: XR RIBS 3 VIEWS MINIMUM WITH CHEST RIGHT HISTORY: fall, lower rib pain COMPARISON: Comparison is made with the prior examination of the chest dated 09/04/2022. FINDINGS: A single PA view of the chest of 6 views of the right ribs are submitted. The lungs are expanded and clear. There is no pleural effusion, pneumothorax, or pulmonary vascular congestion. The heart is normal in size. The right ribs are intact. No fracture is seen. XR/XR ribs RT min 3V w CXR1V IMPRESSION: No acute cardiopulmonary abnormality. No evidence of fracture of the right ribs. Electronically signed by: Orlando Sherman MD 11/12/2024 01:47 PM EDT Dictated By: Orlando Sherman MD Signed By: <Electronically signed by Orlando Sherman MD in OV> 11/12/24 1347 DD/ 1330 TD/TT: 11/12/24 1339 Internal Specialist: [facility] External Provider IMG XR PROCEDURES Edited Result - Final * CT Cervical Spine w/o Contrast (11/12/2024 12:56 PM EDT) Anatomical Region Laterality Modality Spine, C-spine Computed Tomogra phy 11/12/2024 12:5 6 PM EDT Narrative 11/12/2024 1:30 PM EDT [address] [address] [address] Scan Report Signed Patient: Abraham Hoover MR#: [id number] : 1965 Acct:[id number] Age/Sex: 59 / M ADM Date: 11/12/24 Loc: HO.ED Attending Dr: Ordering Physician: Farhana Silverman Date of Service: 11/12/24 Procedure(s): CT cervical spine wo IV con Accession Number(s): [id number] cc: Hillary Zamora MD; Farhana Silverman Report Number: [id number]: Total DLP = 531.00 mGy-cm Reason for Exam: head strike, pain, on AC EXAMINATION: CT CERVICAL SPINE WITHOUT CONTRAST CLINICAL INFORMATION: Head strike, pain. COMPARISON: May 11, 2023 TECHNIQUE: Contiguous axial images through the cervical spine using 3 mm collimation with bone and soft tissue algorithm. Sagittal and coronal reformatted images acquired. DLP: 531.[address] examination was performed using dose optimization techniques as appropriate, variously including the following: *Automated exposure control *Adjustment of mA and/or kV according to patient size (this includes techniques or standardized protocols for targeted exams where dose is matched to indication/reason for exam; i.e. extremities or head) *Use of iterative reconstruction technique FINDINGS: Craniocervical junction is intact with normal alignment between the occipital condyles and the lateral masses of C1. Multilevel marginal osteophyte formation and endplate sclerosis subchondral cyst formation at C3-4, C4-5, C5-6, C6-7 levels. No gross malalignment between the vertebral bodies or joints. C1 is intact. C2 is intact. C3 is intact. C4 is intact. Facet joint hypertrophy. C5 is intact. Bilateral facet hypertrophy. C6 is intact. Bilateral facet joint hypertrophy. C7 is intact. No prevertebral compartment hematoma. Calcified plaques in the proximal right ICA. Thyroid gland is not enlarged. Paraseptal emphysematous changes, both lung apices. Tympanic cavities and mastoid air cells are aerated. Normal position of the cerebellar tonsils. CT/CT cervical spine wo IV con IMPRESSION: Multilevel cervical spondylosis without acute fracture or trauma-related listhesis. Fleischner guidelines were followed. Electronically signed by: George Baum MD 11/12/2024 01:27 PM EDT RP Dictated By: George Pena MD Signed By: <Electronically signed by George Cornejo MD in OV> 11/12/24 1327 DD/ 1256 TD/TT: 11/12/24 1305 Internal Specialist: Procedure Note Donotuseinterpreter, Image - 11/12/[address] [address] [address] Scan Report Signed Patient: Vicente AnsariOtilioMR#: [id number] : 1965Acct:[id number] Age/Sex: 59 / MADM Date: 11/12/24 Loc: HO.ED Attending Dr: Ordering Physician: Farhana Silverman Date of Service: 11/12/24 Procedure(s): CT cervical spine wo IV con Accession Number(s): [id number] cc: Hillary Zamora MD; Farhana Silverman Report Number: [id number]: Total DLP = 531.00 mGy-cm Reason for Exam: head strike, pain, on AC EXAMINATION: CT CERVICAL SPINE WITHOUT CONTRAST CLINICAL INFORMATION: Head strike, pain. COMPARISON: May 11, 2023 TECHNIQUE: Contiguous axial images through the cervical spine using 3 mm collimation with bone and soft tissue algorithm. Sagittal and coronal reformatted images acquired. DLP: 531.[address] examination was performed using dose optimization techniques as appropriate, variously including the following: *Automated exposure control *Adjustment of mA and/or kV according to patient size (this includes techniques or standardized protocols for targeted exams where dose is matched to indication/reason for exam; i.e. extremities or head) *Use of iterative reconstruction technique FINDINGS: Craniocervical junction is intact with normal alignment between the occipital condyles and the lateral masses of C1. Multilevel marginal osteophyte formation and endplate sclerosis subchondral cyst formation at C3-4, C4-5, C5-6, C6-7 levels. No gross malalignment between the vertebral bodies or joints. C1 is intact. C2 is intact. C3 is intact. C4 is intact. Facet joint hypertrophy. C5 is intact. Bilateral facet hypertrophy. C6 is intact. Bilateral facet joint hypertrophy. C7 is intact. No prevertebral compartment hematoma. Calcified plaques in the proximal right ICA. Thyroid gland is not enlarged. Paraseptal emphysematous changes, both lung apices. Tympanic cavities and mastoid air cells are aerated. Normal position of the cerebellar tonsils. CT/CT cervical spine wo IV con IMPRESSION: Multilevel cervical spondylosis without acute fracture or trauma-related listhesis. Fleischner guidelines were followed. Electronically signed by: George Baum MD 11/12/2024 01:27 PM EDT Dictated By: George Pena MD Signed By: <Electronically signed by Jorge Espinal OV> 11/12/24 1327 DD/ 1256 TD/TT: 11/12/24 1305 Internal Specialist: [facility] External Provider IMG CT PROCEDURES Edited Result - Final * CT Head w/o Contrast (11/12/2024 12:56 PM EDT) Anatomical Region Laterality Modality Head, Neck Computed Tomogra phy 11/12/2024 12:5 6 PM EDT Narrative 11/12/2024 1:28 PM EDT [place] [address] CT Scan Report Signed Patient: Abraham Hoover MR#: [id number] : 1965 Acct:[id number] Age/Sex: 59 / M ADM Date: 11/12/24 Loc: .ED Attending Dr: Ordering Physician: Farhana Silverman Date of Service: 11/12/24 Procedure(s): CT head/brain wo IV con Accession Number(s): [id number] cc: Hillary Zamora MD; Farhana Silverman Report Number: [id number]: Total DLP = 732.00 mGy-cm Reason for Exam: head strike, pain, on AC EXAMINATION: CT HEAD WITHOUT IV CONTRAST HISTORY: head strike, pain, on AC. TECHNIQUE: Unenhanced helical CT of the head was performed per standard departmental protocol. Coronal and sagittal reformats of the head were also evaluated. One or more of the following techniques was used for dose reduction: Automated exposure control, adjustment of the mA and/or kV according to patient size, use of iterative reconstruction technique. DLP: 726 mGy-cm COMPARISON: There are no prior studies available for comparison. FINDINGS: BRAIN: There is mild prominence of the ventricular system and cortical sulci, consistent with atrophy. Scattered periventricular and subcortical white matter hypodensities are noted which are nonspecific, but often seen in the setting of small vessel ischemic disease. There is no mass effect or midline shift. No intra- or extra-axial fluid collections are identified. SINUSES: The visualized paranasal sinuses are clear. The mastoid air cells and middle ear cavities are well pneumatized. ORBITS: The visualized orbits are unremarkable. BONES/SOFT TISSUES: There is right frontal soft tissue swelling. The calvarium is intact. No suspicious lytic or sclerotic lesions. CT/CT head/brain wo IV con IMPRESSION: Right frontal soft tissue swelling. No acute intracranial abnormality. Electronically signed by: Orlando Sherman MD 11/12/2024 01:26 PM EDT Dictated By: Orlando Sherman MD Signed By: <Electronically signed by Orlando Sherman MD in OV> 11/12/24 1326 DD/ 1256 TD/TT: 11/12/24 1305 Internal Specialist: Procedure Note Donotuseinterpreter, Image - 11/12/[address] [place] [address] [address] Scan Report Signed Patient: Vicente AnsariOtilioMR#: [id number] : 1965Acct:[id number] Age/Sex: 59 / MADM Date: 11/12/24 Loc: HO.ED Attending Dr: Ordering Physician: Farhana Silverman Date of Service: 11/12/24 Procedure(s): CT head/brain wo IV con Accession Number(s): [id number] cc: Hillary Zamora MD; Farhana Silverman Report Number: [id number]: Total DLP = 732.00 mGy-cm Reason for Exam: head strike, pain, on AC EXAMINATION: CT HEAD WITHOUT IV CONTRAST HISTORY: head strike, pain, on AC. TECHNIQUE: Unenhanced helical CT of the head was performed per standard departmental protocol. Coronal and sagittal reformats of the head were also evaluated. One or more of the following techniques was used for dose reduction: Automated exposure control, adjustment of the mA and/or kV according to patient size, use of iterative reconstruction technique. DLP: 726 mGy-cm COMPARISON: There are no prior studies available for comparison. FINDINGS: BRAIN: There is mild prominence of the ventricular system and cortical sulci, consistent with atrophy. Scattered periventricular and subcortical white matter hypodensities are noted which are nonspecific, but often seen in the setting of small vessel ischemic disease. There is no mass effect or midline shift. No intra- or extra-axial fluid collections are identified. SINUSES: The visualized paranasal sinuses are clear. The mastoid air cells and middle ear cavities are well pneumatized. ORBITS: The visualized orbits are unremarkable. BONES/SOFT TISSUES: There is right frontal soft tissue swelling. The calvarium is intact. No suspicious lytic or sclerotic lesions. CT/CT head/brain wo IV con IMPRESSION: Right frontal soft tissue swelling. No acute intracranial abnormality. Electronically signed by: Orlando Sherman MD 11/12/2024 01:26 PM EDT Dictated By: Orlando Sherman MD Signed By: <Electronically signed by Orlando Sherman MD in OV> 11/12/24 1326 DD/ 1256 TD/TT: 11/12/24 1305 Internal Specialist: [facility] External Provider IMG CT PROCEDURES Edited Result - Final * (ABNORMAL) Comprehensive Metabolic Panel (11/12/2024 12:30 PM EDT) Sodium 141 135 - 145 mmol/L [facility] Potassium 4.6 3.3 - 5.1 mmol/L [facility] Chloride 108 96 - 108 mmol/L [facility] Carbon Dioxide 25 22 - 29 mmol/L [facility] Anion Gap 13 12 - 20 [facility] Urea Nitrogen (BUN) 11 9 - 16 mg/dL [facility] Creatinine, Serum 0.79 0.5 - 1.4 mg/dL [facility] Creatinine Clr Calc Pharmacy 107.7 [facility] Comment:eGFR (calculated fro m the MDRD study equation) and eCrCl(calculated from the Cockcroft-Gault equation) are based ondifferent parameters and may not yield comparable results.If eCrCl result is absurd, please check patient'sheight/weight. Estimated Glomerular Filt Rate >60 [facility] Comment:Chronic Kidney Disea se: Estimated GFR < 60 mL/min/[id number] Kidney Disease: Estimated GFR < 15 mL/min/1.73m2 Glucose 173(H) 60 - 115 mg/dL [facility] Calcium 9.2 8.4 - 10.2 mg/dL [facility] Bilirubin, Total 0.7 0.0 - 1.0 mg/dL [facility] Aspartate Amino Transferase 27 5 - 37 U/L [facility] Alanine Aminotransferase 29 0 - 40 U/L [facility] Total Protein 6.5 6.5 - 8.0 g/dL [facility] Albumin Level 4.2 3.5 - 5.0 g/dL [facility] Alkaline Phosphatase 60 39 - 117 U/L [facility] 11/12/2024 12:3 0 PM EDT 11/12/2024 12:32 PM EDT us Generic External Data Provider LAB BLOOD ORDERAB LES Final Result [facility] [address] [place] [address] [phone] * (ABNORMAL) Prothrombin Time-INR (11/12/2024 12:30 PM EDT) Prothrombin Time 14.6(H) 10.9 - 12.4 SEC [facility] INTERNATIONAL NORM RATIO 1.3(H) 0.9 - 1.1 [facility] Comment:INTERNATIONAL NORMAL IZED RATIO (INR) REFERENCE RANGES Reference RangeFor patients not on anticoagulant therapy: 0.9 - 1.1INR ranges for oral anticoagulanttherapy:For prevention and treatment of venous thrombosis and pulmonary embolism: 2.0 - 3.0For acute myocardial infarction with aspirin therapy: 2.0 - 3.0For acute myocardial infarction without aspirin therapy: 3.0 - 4.0For patients with mechanical prosthetic heart valves: 2.5 - 3.5 11/12/2024 12:3 0 PM EDT 11/12/2024 12:32 PM EDT us Generic External Data Provider LAB BLOOD ORDERAB LES Final Result [facility] [address] [place] [address] [phone] * (ABNORMAL) CBC auto differential (11/12/2024 12:30 PM EDT) White Blood Count 5.4 4.8 - 10.8 X10*3/uL [facility] Red Blood Count 4.33(L) 4.60 - 5.80 X10*6/uL [facility] Hemoglobin 14.1 14.0 - 18.0 g/dl [facility] Hematocrit 40.5(L) 42.0 - 52.0 % [facility] Mean Corpuscular Volume 93.5 80.0 - 98.0 fL [facility] Mean Corpuscular Hemoglobin 32.6 27.0 - 33.0 pg [facility] Mean Corpuscular HGB Conc 34.8 31.0 - 36.0 g/dl [facility] Red Cell Distribution Width 13.0 11.0 - 16.0 % [facility] Platelet Count 171 160 - 400 X10*3/uL [facility] Mean Platelet Volume 9.5 9.4 - 12.4 fL [facility] Neutrophils Percent Auto 63.1 45 - 73 % [facility] Imm Gran Pct Auto 0.4 0.0 - 0.4 % [facility] Lymphocytes Percent Auto 27.6 20 - 40 % [facility] Monocytes Percent Auto 6.6 2 - 11 % [facility] Eosinophils Percent Auto 1.7 0 - 4 % [facility] Basophils Percent Auto 0.6 0 - 2 % [facility] NRBC Pct Auto 0.0 0.0 - 0.2 /100WBC [facility] Neutrophils Absolute Auto 3.4 2.0 - 8.3 x10*3/uL [facility] Imm Gran Abs Auto 0.02 0.00 - 0.03 X10*3/uL [facility] Lymphocytes Absolute Auto 1.5 1.2 - 4.9 X10*3/uL [facility] Monocytes Absolute Auto 0.4 0.1 - 1.2 X10*3/uL [facility] Eosinophils Absolute Auto 0.1 0.0 - 0.4 X10*3/uL [facility] Basophils Absolute Auto 0.0 0.0 - 0.2 X10*3/uL [facility] NRBC Abs Auto 0.000 0.0 - 0.012 X10*3/uL [facility] 11/12/2024 12:3 0 PM EDT 11/12/2024 12:32 PM EDT us Generic External Data Provider LAB BLOOD ORDERAB LES Final Result Performing Organization Address City/State/[facility] Co de Phone Number [facility] [address] [place] [address] [phone] documented in this encounter Visit Diagnoses Not on filedocumented in this encounter Additional Health Concerns Assessment Noted Time PHQ-9 Depression Total Score: 0 05/25/19 24 10:32 AM EDT documented as of this encounter Care Teams Cardiac Sonographer Relationship Specialty Start Date End Date Hillary Zamora MD [address] [place] [phone] PCP - General Family Medicine 03/07/18 Orlando Warner MD [address] [place] [address] Endocrinology 03/29/24 Layla Marrufo NP [address] [place] [address] Urology 04/05/24 Meri Mauricio OD [address] [place] [address] Optometry 04/17/24 Matias Marcelino MD [address] 3[address] [place] [address] Cardiology 09/06/24 Teetee Zacarias WEAVER HAND Endocrinology 03/29/24 documented as of this encounter
--- OUTSIDE RECORDS SUMMARY | 2024-11-12 14:50 | XMS_ITS | Clinical Summary ---
Author Organization [employer] Address [address] [place] [address] Care Team Providers Care Instrument Technologist Name Role Phone Hillary Zamora MD Primary Care Provider [phone] Orlando Warner MD Unavailable Layla Marrufo NP Unavailable Meri Mauricio OD Unavailable Matias Marcelino MD Unavailable Allergies Active Allergy Reactions Criticality Noted Date Comments Metformin 05/25/2018 Penicillins 10/20/2012 Medications * This document contains information received from the source organization and may not represent a complete record from that organization. divalproex (Depakote) 500 MG EC tablet TAKE 1 TABLET BY MOUTH EVERY MORNING and TAKE 2 TABLETS EVERY DAY AT BEDTIME Active HumuLIN R U-500 KWIKPEN 500 UNIT/ML CONCENTRATED injection INJECT 80 UNITS SUBCUTANEOUSLY TWICE DAILY Active melatonin 5 MG tablet TAKE 2 TABLETS BY MOUTH EVERY DAY AT BEDTIME NEEDED Active Blood Glucose Monitoring Suppl (FreeStyle Lite) w/Device kitIndications: Type 2 diabetes mellitus with hyperglycemia, with long-term current use of insulin ([facility]) 1 kit 6 (six) times a day. 1 kit 023 Active lidocaine (Lidoderm) 5 % patch APPLY 1 PATCH TOPICALLY TO SKIN, LEAVE ON FOR 12 HOURS AND OFF FOR 12 HOURS DIRECTED. APPLY TO MOST PAINFUL AREA. Active cholecalciferol (Vitamin D-3) 50 MCG (1999) capsule Take 1 capsule by mouth in [...] UNIT/ML CONCENTRATED injection 80 Units. 024 Active empagliflozin (Jardiance) 25 MGIndications:T ype 2 diabetes mellitus with hyperglycemia, with long-term current use of insulin ([facility]) Take by mouth. Activ e sotalol (Betapace) [...] hyperglycemia, with long-term current use of insulin ([facility]) Inject under the skin. Active tamsulosin (Flomax) 0.4 MG 24 hr capsuleIndicati ons:Benign prostatic hyperplasia without lower urinary tract symptoms Take 0.4 mg by mouth Once per day. Active omeprazole (PriLOSEC) [address] capsuleIndicati ons:Gastroesoph ageal reflux disease, unspecified whether esophagitis present TAKE 1 CAPSULE BY MOUTH EVERY MORNING BEFORE BREAKFAST 90 capsule 3 025 Active dabigatran etexilate (Pradaxa) 150 MG capsuleIndicati ons:Chronic atrial fibrillation (CMS/HCC) TAKE 1 CAPSULE BY MOUTH TWICE DAILY IN THE MORNING AND IN THE EVENING 60 capsule 5 025 Active FREESTYLE LITE test stripIndication s:Type 2 diabetes mellitus with hyperglycemia, with long-term current use of insulin ([facility]) TEST BLOOD SUGAR SIX TIMES DAILY DIRECTED 200 strip 11 025 Active atorvastatin (Lipitor) 80 MG tabletIndicatio ns:Type 2 diabetes mellitus with hyperosmolarity , uncontrolled (CMS/HCC),Dysli pidemia TAKE 1 TABLET BY MOUTH AT BEDTIME 90 tablet 1 025 Active baclofen (Lioresal) 10 MG tablet TAKE 1 TABLET BY MOUTH AT BEDTIME NEEDED FOR MUSCLE SPASMS 2022 Discontinued atorvastatin (Lipitor) 80 MG tabletIndicatio ns:Type 2 diabetes mellitus with hyperosmolarity , uncontrolled (CMS/HCC),Dysli pidemia Take 1 tablet (80 mg) by mouth at bedtime. 90 tablet 3 024 2024 Discontinued Active Problems Patient Care Coordination No te Formatting of this note migh t be different from the original. 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 -He was referred back to phone specialist 01/2021 -Pt seen cardiology 10/2021 with [...] discontinued. -Followed by Dr. Matias Marcelino of [facility], note from 09/04/24 reviewed, was in atrial fibrillation in office referred to EP again for ablation Dr. Felton -Saw Evonne Gillespie, ADELINE 01/21/2023 -continue Sotolol 120 mg 2 tablets [...] rate control. -He was referred back to phone specialist 01/2021 -Pt seen cardiology 10/2021 with [...] discontinued. -Followed by Dr. Matias Marcelino of [facility] -Saw Evonne Gillespie NP [...] rate control. -He was referred back to phone specialist 01/2021 -Pt seen cardiology 10/2021 with [...] discontinued. -Followed by Dr. Matias Marcelino of [facility] -Saw Evonne Gillespie NP [...] rate control. -He was referred back to phone specialist 01/2021 -Pt seen cardiology 10/2021 with [...] discontinued. -Followed by Dr. Matias Marcelino of [facility] -Saw Evonne Gillespie NP [...] been asymptomatic. He was referred back to phone specialist 01/2021 He is awaiting a new [...] ,diastolic dysfunction indeterminate -continue to f with dock pumper Cardiomyopathy 03/29/2022 Overview (03/19/2024): Possibly due to [...] mellitus with hyperosmolarity, u ncontrolled 01/10/2012 Overview (10/17/2024): Diabetes is not controlled. Followed by Territory Supervisor, Dr. Warner, note from 10/16/24 reviewed -has Dexacom GCM Lab Results Component Value Date HGBA1C 9.3 (A) 07/18/2024 HGBA1C 9.7 (A) 05/25/2023 HGBA1C 9.1 (A) 01/24/2023 - Lab Results Component Value Date CREATININE 0.78 07/18/2024 EGFR >60 07/18/2024 MICROALBCREU TNP 12/07/2023 MICROALBCREU 12.7 10/14/2022 LDLCHOLCAL 77 10/14/2022 -Orlin/Arb: lisinopril 5mg -Statin therapy: atorvastatin 80mg -Diabetic eye exam: at [facility] with Gopal Madhavi 06/22/2022 -Continue lifestyle modifications -Followed by Dr. Warner combatant diver officer -continue Jardiance 25 daily -per Endo 02/06/25 Humulin U500 breakfast 55 units take 80 units if over 200 Supper 55 units take 70 if over 200 -Change Trulicity to Mounjaro and back to Trulicity 4.5 weekly on 09/2024 -Continue Jardiance Assessment & Plan (09/02/2023 10:24 AM EDT): Diabetes is not controlled. Followed by Territory Supervisor, Dr. Warner -has Dexacom GCM Lab Results Component Value Date HGBA1C 9.7 (A) 05/25/2023 HGBA1C 9.1 (A) 01/24/2023 HGBA1C 8.9 (A) 08/18/2022 - Lab Results Component Value Date CREATININE 0.81 10/14/2022 EGFR >60 10/14/2022 MICROALBCREU 12.7 10/14/2022 MICROALBCREU TNP 04/06/2022 LDLCHOLCAL 77 10/14/2022 -Orlin/Arb: lisinopril 5mg -Statin therapy: atorvastatin 80mg -Diabetic eye exam: at [facility] with Gopal Williamsony 06/22/2022 -Diabetic foot exam: -Continue lifestyle modifications -Continue current medications -Followed by Dr. Warner combatant diver officer -continue Trulicity 4.5mg weekly -continue Jardiance 25 daily -continue humulin R U 500 0 units tid Assessment & Plan (05/25/2023 10:47 AM EDT): Diabetes is not controlled. Followed by Territory Supervisor, Dr. Warner -has Dexacom GCM Lab Results Component Value Date HGBA1C 9.1 (A) 01/24/2023 HGBA1C 8.9 (A) 08/18/2022 Lab Results Component Value Date MICROALBUR 13.0 10/14/2022 CREATININE 0.81 10/14/2022 -Seen by endocrinology on 10/12/2022. No changes made. -Changes: None -Orlin/Arb: lisinopril 5mg -Statin therapy: atorvastatin 80mg -Diabetic eye exam: at [facility] with Gopal Williamsony 06/22/2022 -Diabetic foot exam: -Continue lifestyle modifications -Continue current medications -Followed by Dr. Warner combatant diver officer -continue Trulicity 4.5mg weekly -continue Jardiance 25 daily -Continue humulin R U 500 0 units tid Assessment & Plan (01/24/2023 12:08 PM EST): Diabetes is not controlled. Followed by Territory Supervisor, Dr. Warner -has Dexacom GCM Lab Results Component Value Date HGBA1C 9.1 (A) 01/24/2023 HGBA1C 8.9 (A) 08/18/2022 Lab Results Component Value Date MICROALBUR 13.0 10/14/2022 CREATININE 0.81 10/14/2022 -Seen by endocrinology on 10/12/2022. No changes made. -Changes: None -Orlin/Arb: lisinopril 5mg -Statin therapy: atorvastatin 80mg -Diabetic eye exam: at [facility] with Gopal Hendrickson 06/22/2022 -Diabetic foot exam: -Continue lifestyle modifications -Continue current medications -Followed by Dr. Warner combatant diver officer -continue Trulicity 4.5mg weekly -continue Jardiance 25 [...] hb1ac is 8.9-per pt improving following w combatant diver officer -last echo in chart 12/2021: ef 50-60%, [...] ablation and after it, clearance from his dock pumper prior to have eye surgery --I will have this note fax to his eye doctor today -if pt is cleared from his dock pumper then pt will need to hold on pradaxa the morning of procedure unless indicated differently by his dock pumper,hold as well PO meds in am of procedure and to use half insuline basal insuline at night prior surgery. Also pt will need to check with his dock pumper if prior eye surgery will need to hold digoxin and diltiazem if meds are going to be continued after ablation. -I called today as well to his dock pumper at # [phone] at [facility] and left my phone info to get a call back to discuss with dock pumper, I also inform pt to discuss w his dock pumper at his upcoming visit in 2 days [...] 2012 no significant CAD and stress mibi 2016 was unremarkable currently not active. Hematochezia 05/07/2013 08/05/2023 Asthma 01/10/2012 10/13/2022 Encounters Date Type Department Care Team Description 11/12/2024 Orders Only GENERIC EXTERNAL DATA DEPARTMENT Provider, Generic External Data 10/31/2024 Refill [facility] [address] [place] [address] Hillary Zamora MD Type 2 diabetes mellitus with hyperosmolarity, uncontrolled ([facility]); Dyslipidemia 10/16/2024 Orders Only GENERIC EXTERNAL DATA DEPARTMENT Provider, Generic External Data 10/10/2024 Refill [facility] [address] [place] [address] Hillary Zamora MD Type 2 diabetes mellitus with hyperglycemia, with long-term current use of insulin ([facility]) 10/01/2024 Telephone [facility] [address] [place] [address] Hillary Zamora MD 09/28/2024 Telephone [facility] [address] [place] [address] Hillary Zamora MD chartprep 09/27/2024 Telephone [facility] [address] [place] [address] Hillary Zamora MD Appointment Confirmation (I book the appt on October 01 at 1:45pm.) 09/27/2024 Travel 09/27/2024 Orders Only GENERIC EXTERNAL DATA DEPARTMENT Provider, Generic External Data 09/26/2024 Patient Outreach [facility] [address] [place] [address] Hillary Zamora MD Pre-visit Planning (Pre-visit planning - LVM ) 09/24/2024 Travel 08/19/2024 Refill [facility] [address] [place] [address] Hillary Zamora MD Chronic atrial fibrillation ([facility]) 08/15/2024 Refill [facility] [address] [place] [address] Hillary Zamora MD Gastroesophageal reflux disease, unspecified whether esophagitis present from Last 3 Months Immunizations Immunization Administration [...] 94 09/15/2023 11:02 AM EDT Temperature 37.2 C (98.9 F) 05/25/2023 10:30 AM EDT Respiratory Rate 20 05/25/2023 10:30 AM EDT [...] Description 12/03/2024 9:00 AM EDT Office Visit [facility] [address] [place] [address] Hillary Zamora MD [address] [place], [place] [phone] Health Maintenance Due Date Last Done Comments CT Colonography 1965 Colonoscopy 1965 FIT 1965 Sigmoidoscopy 1965 Disability Screening 1965 Alcohol/Substance Use Screening 1975 SDOH Screening 08/19/2023 08/18/2022 RSV Patients and Patients Aged 60 years or older (1 - Risk 60-74 years 1-dose series) 2023 Lipid Panel 10/15/2023 10/14/2022, 03/09, 09/03/2021, Additional history exists Dental Oral Exam 12/14/2023 06/13/2023 Dental Prophylaxis 12/16/2023 06/15/2023 Diabetes: Foot Exam 01/25/2024 01/24/2023, 01/24/2023, 01/24/2023 Colorectal Cancer Screening 02/08/2024 FIT DNA/Cologuard 02/08/2024 02/07/2023 FOBT 02/08/2024 02/07/2023 Depression Screening 05/24/2024 05/25/2023, 05/25/19 Dental X-Ray: Bitewings 06/13/2024 06/13/2023 DTaP/Tdap/Td Vaccines (3 - Td or Tdap) 07/17/2024 07/17/2014, 09/30/2009 Diabetes: Hemoglobin A1C 10/18/202407/18/2 025, 05/25/2023, 01/24/2023, Additional history exists COVID-19 Vaccine ( season) 2024 04/02/2022, 01/10/2021, 06/04/2020, Additional history exists Influenza Vaccine (#1) 2024 , 12/26/2019, 12/15/2018, Additional history exists Diabetes: Urine Protein Screening 12/06/2024 12/07/2023, 10/14/2022, [...] CONTRAST Routine 11/12/2024 1 2:56 PM EDT COMPREHENSIVE METABOLIC PANEL Routine 11/12/2024 12:30 PM EDT PROTHROMBIN TIME-INR Routine 11/12/2024 12:30 PM EDT CBC WITH AUTO DIFFERENTIAL Routine 11/12/2024 12:30 PM EDT GLUCOSE, WHOLE BLOOD Routine 10/16/2024 9:14 AM EDT PSA, TOTAL Routine 09/27/2024 7:40 AM EDT HM HEMOGLOBIN A1C Routine 07/18/2024 ALBUMIN, RANDOM URINE W/CREATININE Routine 12/07/2023 8:25 AM EDT PROPHYLAXIS - ADULT Routine 06/15/2023 1 :00 PM EDT Generalized gingival recession, moderate Gingival bleeding Periodontal disease Dental calculus INTRAORAL - COMPLETE SERIES OF RADIOGRAPHIC IMAGES Routine 06/13/2023 10:00 AM EDT PERIODIC ORAL EVALUATION - ESTABLISHED PATIENT Routine 06/13/2023 10:00 AM EDT LAB COLOGUARD COLON CANCER SCREEN Routine 02/07/2023 7:30 AM EST Colon cancer screening HEPATITIS C ANTIBODY REFLEX Routine 10/14/2022 11:04 AM EDT HIV ANTIBODY/ANTIGEN ([facility]) Routine 10/14/2022 11:04 AM EDT LIPID PANEL, STANDARD Routine 10/14/2022 11:04 AM EDT Dyslipidemia DIABETES EYE EXAM Routine 06/22/2022 from Last 3 Months or Most Recently Relevant to Health Maintenance Results * XR Ribs 3 Views Right with Chest 1 View (11/12/2024 1:30 PM EDT) Anatomical Region Laterality Modality Radiographic Claire ging 11/12/2024 1:30 PM EDT Narrative 11/12/2024 1:49 PM EDT [address] [address] XRay Report Signed Patient: Abraham Hoover MR#: [id number] : 1965 Acct:[id number] Age/Sex: 59 / M ADM Date: 11/12/24 Loc: HO.ED Attending Dr: Ordering Physician: Juan Carlos Patricio DO Date of Service: 11/12/24 Procedure(s): XR ribs RT min 3V w CXR1V Accession Number(s): [id number] cc: Hillary Zamora MD; Juan Carlos Patricio [...] 11/12/24 1347 DD/ 1330 TD/TT: 11/12/24 1339 Machine Maintenance Supervisor: Procedure Note Donotuseinterpreter, Image - 11/12/[address] [address] XRay Report Signed Patient: Trace HooverR#: [id number] : 1965Acct:[id number] Age/Sex: 59 / MADM Date: 11/12/24 Loc: .ED Attending Dr: Ordering Physician: Juan Carlos Patricio DO Date of Service: 11/12/24 Procedure(s): XR ribs RT min 3V w CXR1V Accession Number(s): [id number] cc: Hillary Zamora MD; Juan Carlos Patricio [...] 11/12/24 1347 DD/ 1330 TD/TT: 11/12/24 1339 Machine Maintenance Supervisor: [facility] External Provider IMG XR PROCEDURES Edited Result - Final * CT Cervical Spine w/o Contrast (11/12/2024 12:56 PM EDT) Anatomical Region Laterality Modality Spine, C-spine Computed Tomogra phy 11/12/2024 12:5 6 PM EDT Narrative 11/12/2024 1:30 PM EDT [address] [address] [address] Scan Report Signed Patient: Abraham Hoover MR#: [id number] : 1965 Acct:[id number] Age/Sex: 59 / M ADM Date: 11/12/24 Loc: HO.ED Attending Dr: Ordering Physician: Farhana Silverman Date of Service: 11/12/24 Procedure(s): CT cervical spine wo IV con Accession Number(s): [id number] cc: Hillary Zamora MD; Farhana Silverman Report Number: [id number]: Total DLP = 531.00 mGy-cm Reason for [...] 11/12/24 1327 DD/ 1256 TD/TT: 11/12/24 1305 Machine Maintenance Supervisor: Procedure Note Donotuseinterpreter, Image - 11/12/[address] [address] [address] Scan Report Signed Patient: Vicente AnsariOtilioMR#: [id number] : 1965Acct:[id number] Age/Sex: 59 / MADM Date: 11/12/24 Loc: HO.ED Attending Dr: Ordering Physician: Farhana Silverman Date of Service: 11/12/24 Procedure(s): CT cervical spine wo IV con Accession Number(s): [id number] cc: Hillary Zamora MD; Farhana Silverman Report Number: [id number]: Total DLP = 531.00 mGy-cm Reason for [...] Signed By: <Electronically signed by George Cornejo MDin OV> 11/12/24 1327 DD/ 1256 TD/TT: 11/12/24 1305 Machine Maintenance Supervisor: [facility] External Provider IMG CT PROCEDURES Edited Result - Final * CT Head w/o Contrast (11/12/2024 12:56 PM EDT) Anatomical Region Laterality Modality Head, Neck Computed Tomogra phy 11/12/2024 12:5 6 PM EDT Narrative 11/12/2024 1:28 PM EDT [place] [address] CT Scan Report Signed Patient: Abraham Hoover MR#: [id number] : 1965 Acct:[id number] Age/Sex: 59 / M ADM Date: 11/12/24 Loc: HO.ED Attending Dr: Ordering Physician: Farhana Silverman Date of Service: 11/12/24 Procedure(s): CT head/brain wo IV con Accession Number(s): [id number] cc: Hillary Zamora MD; Farhana Silverman Report Number: [id number]: Total DLP = 732.00 mGy-cm Reason for [...] Orlando Sherman MD 11/12/2024 01:26 PM EDT RP Dictated By: Orlando Sherman MD Signed By: <Electronically signed by Orlando Sherman MD in OV> 11/12/24 1326 DD/ 1256 TD/TT: 11/12/24 1305 Machine Maintenance Supervisor: Procedure Note Donotuseinterpreter, Image - 11/12/[address] [place] [address] [address] Scan Report Signed Patient: Vicente AnsariOtilioMR#: [id number] : 1965Acct:[id number] Age/Sex: 59 / MADM Date: 11/12/24 Loc: HO.ED Attending Dr: Ordering Physician: Farhana Silverman Date of Service: 11/12/24 Procedure(s): CT head/brain wo IV con Accession Number(s): [id number] cc: Hillary Zamora MD; Farhana Silverman Report Number: [id number]: Total DLP = 732.00 mGy-cm Reason for [...] Orlando Sherman MD 11/12/2024 01:26 PM EDT RP Dictated By: Orlando Sherman MD Signed By: <Electronically signed by Orlando Sherman MD in OV> 11/12/24 1326 DD/ 1256 TD/TT: 11/12/24 1305 Machine Maintenance Supervisor: [facility] External Provider IMG CT PROCEDURES Edited Result - Final * (ABNORMAL) CBC auto differential (11/12/2024 12:30 PM EDT) White Blood Count 5.4 4.8 - 10.8 X10*3/uL [facility] Red Blood Count 4.33(L) 4.60 - 5.80 X10*6/uL [facility] Hemoglobin 14.1 14.0 - 18.0 g/dl [facility] Hematocrit 40.5(L) 42.0 - 52.0 % [facility] Mean Corpuscular Volume 93.5 80.0 - 98.0 fL [facility] Mean Corpuscular Hemoglobin 32.6 27.0 - 33.0 pg [facility] Mean Corpuscular HGB Conc 34.8 31.0 - 36.0 g/dl [facility] Red Cell Distribution Width 13.0 11.0 - 16.0 % [facility] Platelet Count 171 160 - 400 X10*3/uL [facility] Mean Platelet Volume 9.5 9.4 - 12.4 fL [facility] Neutrophils Percent Auto 63.1 45 - 73 % [facility] Imm Gran Pct Auto 0.4 0.0 - 0.4 % [facility] Lymphocytes Percent Auto 27.6 20 - 40 % [facility] Monocytes Percent Auto 6.6 2 - 11 % [facility] Eosinophils Percent Auto 1.7 0 - 4 % [facility] Basophils Percent Auto 0.6 0 - 2 % [facility] NRBC Pct Auto 0.0 0.0 - 0.2 /100WBC [facility] Neutrophils Absolute Auto 3.4 2.0 - 8.3 x10*3/uL [facility] Imm Gran Abs Auto 0.02 0.00 - 0.03 X10*3/uL [facility] Lymphocytes Absolute Auto 1.5 1.2 - 4.9 X10*3/uL [facility] Monocytes Absolute Auto 0.4 0.1 - 1.2 X10*3/uL [facility] Eosinophils Absolute Auto 0.1 0.0 - 0.4 X10*3/uL [facility] Basophils Absolute Auto 0.0 0.0 - 0.2 X10*3/uL [facility] NRBC Abs Auto 0.000 0.0 - 0.012 X10*3/uL [facility] 11/12/2024 12:3 0 PM EDT 11/12/2024 12:32 PM EDT us Generic External Data Provider LAB BLOOD ORDERAB LES Final Result [facility] [address] [place] [phone] * (ABNORMAL) Prothrombin Time-INR (11/12/2024 12:30 PM EDT) Prothrombin Time 14.6(H) 10.9 - 12.4 SEC [facility] INTERNATIONAL NORM RATIO 1.3(H) 0.9 - 1.1 [facility] Comment:INTERNATIONAL NORMAL IZED RATIO (INR) [...] ORDERAB LES Final Result Performing Organization Address [facility] Co de Phone Number [facility] [address] [place] [phone] * (ABNORMAL) Comprehensive Metabolic Panel (11/12/2024 12:30 PM EDT) Pathologist [facility] Sodium 141 135 - 145 mmol/L [facility] Potassium 4.6 3.3 - 5.1 mmol/L [facility] Chloride 108 96 - 108 mmol/L [facility] Carbon Dioxide 25 22 - 29 mmol/L [facility] Anion Gap 13 12 - 20 [facility] Urea Nitrogen (BUN) 11 9 - 16 mg/dL [facility] Creatinine, Serum 0.79 0.5 - 1.4 mg/dL [facility] Creatinine Clr Calc Pharmacy 107.7 [facility] Comment:eGFR (calculated fro m the MDRD study equation) and eCrCl(calculated from the Cockcroft-Gault equation) are based ondifferent parameters and may not yield comparable results.If eCrCl result is absurd, please check patient'sheight/weight. Estimated Glomerular Filt Rate >60 [facility] Comment:Chronic Kidney Disea se: Estimated GFR < 60 mL/min/[id number] Kidney Disease: Estimated GFR < 15 mL/min/1.73m2 Glucose 173(H) 60 - 115 mg/dL [facility] Calcium 9.2 8.4 - 10.2 mg/dL [facility] Bilirubin, Total 0.7 0.0 - 1.0 mg/dL [facility] Aspartate Amino Transferase 27 5 - 37 U/L [facility] Alanine Aminotransferase 29 0 - 40 U/L [facility] Total Protein 6.5 6.5 - 8.0 g/dL [facility] Albumin Level 4.2 3.5 - 5.0 g/dL [facility] Alkaline Phosphatase 60 39 - 117 U/L [facility] 11/12/2024 12:3 0 PM EDT 11/12/2024 12:32 PM EDT us Generic External Data Provider LAB BLOOD ORDERAB LES Final Result Performing Organization Address [facility] Co de Phone Number [facility] [address] [place] [phone] * (ABNORMAL) Glucose, Whole Blood (10/16/2024 9:14 AM EDT) Glucose, Whole Blood 221(H) 60 - 115 mg/dL [facility] Comment:METER #: [id number] Testing performed in the Endocrinology Department [address] , [address], [facility]. 10/16/2024 9:14 AM EDT 10/16/2024 9:20 AM EDT us Generic External Data Provider LAB BLOOD ORDERAB LES Final Result Performing Organization Address [facility]/ZIP Co de Phone Number [facility] [address] [place] [phone] * PSA,Total (09/27/2024 7:40 AM EDT) Prostate Specific Antigen 0.56 <0.05 - 4.0 ng/mL [facility] Comment:PSA methodology: Shashank Thakur i ChemiluminescentMicroparticle Immunoassay (CMIA) 09/27/2024 7:40 AM EDT 09/27/2024 7:40 AM EDT us Generic External Data Provider LAB BLOOD ORDERAB LES Final Result [facility] [address] [place] [phone] * (ABNORMAL) HM Hemoglobin A1c (07/18/2024) Hemoglobin A1C 9.3(A) 4.0 - 5.7 % Narrative Raysa Tomlin - 07/18/2024 See external hospital admission note on 07/18/2024 Historical Provider MD HEALTH MAINTENANCE Final Result * Albumin, Random Urine W/Creatinine (12/07/2023 8:25 AM EDT) Creatinine, Urine 65.99 mg/dL [facility] [facility] Microalbumin Urine <5.0 mg/L [facility] Microalbum Creatinine Ratio Ur TNP <30 ug/mg cr [facility] Comment:Unable to calculate albumin/creatinine ratio due to lowmicroalbumin or creatinine result. 12/07/2023 8:25 AM EDT 12/07/2023 9:37 AM EDT us Generic External Data Provider LAB URINE ORDERAB LES Final Result [facility] [address] [place] [phone] * (ABNORMAL) Cologuard?? colon cancer screening (02/07/2023 7:30 AM EST) Cologuard Result Positive( A) Negative 02/15/2023 9:47 AM EST [employer] (CLIA #:[id number]) Comment: POSITIVE TEST RESULT. A positive Cologuard result should be followed with a colonoscopy or visual examination of the colon. The normal value (reference range) for this assay is negative. TEST DESCRIPTION: Composite algorithmic analysis of stool DNA-biomarkers with hemoglobin immunoassay. Quantitative values of individual biomarkers are not [...] Benites et al, N Engl J Med 2014;370(14):2710-2704.) Cologuard may produce a false negative or false positive result (no colorectal cancer or precancerous polyp present at colonoscopy follow up). A negative Cologuard test result does not guarantee the absence of CRC or advanced adenoma (pre-cancer). The current Cologuard screening interval is every 3 years. ([place] [employer] and U.S. Multi-Society Task Force). Cologuard performance data in a 10,000 patient pivotal study using colonoscopy as the reference method can be accessed at the following location: [email or web address]/results. Additional description of the Cologuard test process, warnings and precautions can be found at [email or web address].com. Stool specimen (specimen) 02/07/2023 7:30 AM EST 02/08/2023 3:13 PM EST Hillary Zamora MD LAB MOLECULAR DIAGNOSTICS ORDERABLES Final Result Performing Organization Address City/[facility]/ZIP Co de Phone Number [facility] (CLIA #:[id number]) [place] [address], * Hepatitis C Antibody Reflex (10/14/2022 11:04 AM EDT) Hepatitis C Antibody Nonreactive Nonreactive [facility] Comment:Antibodies to HCV no t detected; does not exclude early acuteHCV infection. 10/14/2022 11:0 4 AM EDT 10/14/2022 12:57 PM EDT Hillary Zamora MD LAB BLOOD ORDERABLES Final Result Performing Organization Address [facility] Co de Phone Number [facility] [address] [place] [phone] * HIV Ab/Ag ([facility]) (10/14/2022 11:04 AM EDT) HIV AB/AG Nonreactive Nonreactive [facility] Comment:HIV-1 p24 Ag and/or HIV-1/HIV-2 Ab not detected.A test result that is nonreactive does not exclude thepossibility of exposure to or infection with HIV-1 and/orHIV-2. Nonreactive results in this assay for individualswith prior exposure to HIV-1 and/or HIV-2 may be due toantigen and antibody levels that are below the limit ofdetection of this assay.[employer] HIV Ag/Ab Combo assay result andsupplemental assay results should be interpreted inconjunction with the patient's clinical presentation,history and other laboratory results. If the results areinconsistent with clinical evidence, additional testing issuggested to confirm the result. 10/14/2022 11:0 4 AM EDT 10/14/2022 12:57 PM EDT Hillary Zamora MD LAB BLOOD ORDERABLES Final Result Performing Organization Address [facility]/ZIP Co de Phone Number [facility] [address] [place] [phone] * Lipid Panel, Standard (10/14/2022 11:04 AM EDT) Triglycerides 96 mg/dL [facility] Comment:Desirable Triglyceri de: less than 150 mg/dLBorderline High Triglyceride 150-199 mg/dLHigh Triglyceride: 200-499 mg/dLVery High Triglyceride: greater than or equal to 5OO mg/dL Cholesterol 128 mg/dL [facility] Comment:Desirable Cholestero l: less than 200 mg/dLBorderline High Cholesterol: 200-239 mg/dLHigh Cholesterol: greater than 239 mg/dL LDL Cholesterol Calculated 77 mg/dl [facility] Comment:Desirable LDL: less than 100 mg/dLNear Optimal/Above Optimal LDL: 110- 129 mg/dLBorderline High LDL: 130-159 mg/dLHigh LDL: 160-189 mg/dLVery High LDL: greater than or equal to 190 mg/dL HDL Cholesterol 32 mg/dL [facility] Comment:Desirable HDL: great er than 40 mg/dL Note: This HDL assay may give artificially low results in patients with liver disease. Blood Venous blood specimen / Unknown 10/14/2022 11:04 AM EDT 10/14/2022 12:57 PM EDT Hillary Zamora MD LAB BLOOD ORDERABLES Final Result Performing Organization Address City/[facility]/ZIP Co de Phone Number [facility] [address] [place] [phone] * Hm Diabetes Eye Exam (06/22/2022) Eye Exam Normal Normal Comment:[facility] Historical Provider HEALTH MAINTENANCE Final Result from Last 3 Months or Most Recently Relevant to Health Maintenance Insurance [facility] ONE CARE < 65 [facility] [address] [place] [id number] Care Teams Instrument Technologist Relationship Specialty Start Date End Date Hillary Zamora MD [address] [place] [address] PCP - General Family Medicine 03/07/18 Orlando Warner MD [address] [place] [address] Endocrinology 03/29/24 Layla Marrufo NP [address] [place] [address] Urology 04/05/24 Meri Mauricio OD [address] [place] [address] Optometry 04/17/24 Matias Marcelino MD [address] [place] [address] Cardiology 09/06/24 Teetee Zacarias HEALTH AND SAFETY ADVISOR Endocrinology 03/29/24
== END 2024-11-12 14:11 | disposition home or self-care (01) ==
PROVIDERS: Physician Assistant Medical; Emergency Provider Emergency Medicine; PCP Family Medicine
DX: S00.93XA Contusion of unspecified part of head, initial encounter (principal); W19.XXXA Unspecified fall, initial encounter; Y93.9 Activity, unspecified; Y92.9 Unspecified place or not applicable; Y99.9 Unspecified external cause status; R51.9 Headache, unspecified; R07.81 Pleurodynia; I10 Essential (primary) hypertension; E11.9 Type 2 diabetes mellitus without complications; I48.0 Paroxysmal atrial fibrillation; Z79.899 Other long term (current) drug therapy; Z79.01 Long term (current) use of anticoagulants
CPT/HCPCS: 36415; 70450; 71101; 72125; 80053; 85025; 85610; 99284

== ENCOUNTER → 2024-11-12 11:55 | Outpatient (BNV) | payer OTHER, SELFPAY | PROVIDERS: Emergency Provider Emergency Medicine; PCP Family Medicine; Visit Provider Radiology Diagnostic Radiology | DX: M53.82 Other specified dorsopathies, cervical region (principal); I67.82 Cerebral ischemia; R07.89 Other chest pain | CPT/HCPCS: 70450; 71101; 72125 ==

== ENCOUNTER 2024-12-03 09:34 | Outpatient (REF) | payer OTHER, SELFPAY ==
[2024-12-03 11:21] LABS: MANUAL DIFF FLAG NO
[2024-12-03 11:32] LABS: Hematocrit 46.0 % (42.0-52.0); Hemoglobin 15.5 g/dl (14.0-18.0); Imm Gran Abs Auto 0.02 X10*3/uL (0.00-0.03); Imm Gran Pct Auto 0.4 % (0.0-0.4); Lymphocytes Absolute Auto 1.8 X10*3/uL (1.2-4.9); Mean Corpuscular HGB Conc 33.7 g/dl (31.0-36.0); Mean Corpuscular Hemoglobin 32.3 pg (27.0-33.0); Mean Corpuscular Volume 95.8 fL (80.0-98.0); NRBC Abs Auto 0.000 X10*3/uL (0.0-0.012); NRBC Pct Auto 0.0 /100WBC (0.0-0.2); Platelet Count 209 X10*3/uL (160-400); Red Blood Count 4.80 X10*6/uL (4.60-5.80); White Blood Count 5.3 X10*3/uL (4.8-10.8)
[2024-12-03 12:10] LABS: Alanine Aminotransferase 35 U/L (0-40); Albumin Level 4.4 g/dL (3.5-5.0); Alkaline Phosphatase 85 U/L (39-117); Anion Gap 10 (12-20); Aspartate Amino Transferase 32 U/L (5-37); Blood Urea Nitrogen 14 mg/dL (9-16); Calcium 9.7 mg/dL (8.4-10.2); Carbon Dioxide 30 mmol/L (22-29); Chloride 105 mmol/L (96-108); Cholesterol 97 mg/dL (<200); Estimated Glomerular Filt Rate > 60; HDL Cholesterol 32 mg/dL (>40); Iron 106 mcg/dL (45-160); Percent Iron Saturation 38 % (15-50); Potassium 4.6 mmol/L (3.3-5.1); Sodium 140 mmol/L (135-145); Total Iron Binding Capacity 280 mcg/dL (228-428); Total Protein 6.9 g/dL (6.5-8.0); Triglycerides 80 mg/dL (<150); Unsaturated Iron Binding 174 ug/dL
[2024-12-03 12:17] LABS: Carcinoembryonic Antigen < 1.73 ng/mL; Ferritin 148 ng/mL (20-250)
[2024-12-03 12:25] LABS: Folate 10.5 ng/mL (> or = 4.0); Vitamin B12 429 pg/mL (200-900)
== END 2024-12-03 09:35 | disposition home or self-care (01) ==
LOC: HO.HHCL 09:34
PROVIDERS: PCP Family Medicine; Visit Provider Family Medicine
DX: D64.9 Anemia, unspecified (principal); E11.00 Type 2 diabetes mellitus with hyperosmolarity without nonketotic hyperglycemic-hyperosmolar coma (NKHHC); R63.4 Abnormal weight loss
CPT/HCPCS: 36415; 80048; 80061; 80076; 82043; 82378; 82570; 82607; 82728; 82746; 83540; 84443; 85025

== ENCOUNTER 2024-12-12 07:28 | Outpatient (REF) | payer OTHER, SELFPAY ==
--- OUTSIDE RECORDS SUMMARY | 2024-12-12 07:31 | XMS_ITS | Encounter Summary ---
Author Organization [facility] Address [address] [place] [address] Care Team Providers Care Ticket Broker Name Role Phone Hillary Zamora MD Primary Care Provider + [phone] Orlando Warner MD Unavailable [phone] Layla Marrufo NP Unavailable Meri Mauricio OD Unavailable [phone] Matias Marcelino MD Unavailable [phone] Encounter Details Date Type Department Care Team (Latest Contact Info) Description 12/23/2020 Abstract [facility] CONVERSIONS Dental, Provider, DDS Social History [...] Care Team (Late st Contact Info) Description 02/04/2025 9:00 AM EST Office Visit [facility] MEDICINE [address] [place], [place] [phone] Hillary Zamora MD [address] [place], [place] [phone] documented as of this encounter Visit Diagnoses Not on filedocumented in this encounter Care Teams Ticket Broker Relationship Specialty Start Date End Date Hillary Zamora MD [address] [place] [address] PCP - General Family Medicine 03/07/18 Orlando Warner MD [address] [place] [address] Endocrinology 03/29/24 Layla Marrufo NP [address] [place] [address] Urology 04/05/24 Meri Mauricio OD [address] [place] [address] Optometry 04/17/24 Matias Marcelino MD [address] [place] [address] Cardiology 09/06/24 Teetee Zacarias SOFTWARE LICENSING ANALYST Endocrinology 03/29/24 documented as of this encounter
--- OUTSIDE RECORDS SUMMARY | 2024-12-12 07:31 | XMS_ITS | Clinical Summary ---
Author Organization [employer] Address [address] [place] [address] Care Team Providers Care Creeler Name Role Phone Hillary Zamora MD Primary Care Provider [phone] Orlando Warner MD Unavailable [phone] Layla Marrufo NP Unavailable Meri Mauricio OD Unavailable [phone] Matias Marcelino MD Unavailable Allergies Active Allergy [...] hyperglycemia, with long-term current use of insulin (HCC) 1 kit 6 (six) times a day. [...] hyperglycemia, with long-term current use of insulin ([facility]) Take by mouth. A ctive sotalol (Betapace) 80 MG tabletIndicatio ns:Chronic atrial fibrillation (CMS/HCC) ([facility]) Take by mouth. Active ezetimibe (Zetia) 10 MG tabletIndicatio ns:Dyslipidemia Take 10 mg by mouth Once per day. Active lisinopril 5 MG tabletIndicatio ns:Primary hypertension Take by mouth Once per day. Active Tirzepatide (Mounjaro) 2.5 MG/0.5ML solution auto-injectorIn dications:Type 2 diabetes mellitus with hyperglycemia, with long-term current use of insulin ([facility]) Inject under the skin. Active tamsulosin (Flomax) [...] 150 MG capsuleIndicati ons:Chronic atrial fibrillation (CMS/HCC) ([facility]) TAKE 1 CAPSULE BY MOUTH TWICE DAILY IN THE MORNING AND IN THE EVENING 60 capsule 5 025 Active FREESTYLE LITE test stripIndication s:Type 2 diabetes mellitus with hyperglycemia, with long-term current use of insulin ([facility]) TEST BLOOD SUGAR SIX TIMES DAILY DIRECTED 200 strip 11 025 Active atorvastatin (Lipitor) 80 MG tabletIndicatio ns:Type 2 diabetes mellitus with hyperosmolarity , uncontrolled (HCC),Dyslipide sabrina TAKE 1 TABLET BY MOUTH AT BEDTIME 90 tablet 1 025 Active baclofen (Lioresal) 10 MG tablet TAKE 1 TABLET BY MOUTH AT BEDTIME NEEDED FOR MUSCLE SPASMS 2022 Discontinued Active Problems Patient Care Coordination No te Formatting of this note migh t be different from the original. [facility] [place] Cell[employer] Worker: Lizz, member services number [phone], provider services line, , option 4 Tear Down Matcher Agency: [facility] Problem Noted Date Diagnosed Date Cord compression 12/03/2024 Assessment & Plan (12/03/2024 10:01 AM EDT): Anemia 12/03/2024 Overview (12/03/2024): Lab Results Component Value Date HGB 14.1 11/12/2024 HGB 13.8 (L) 07/18/2024 HGB 14.7 10/14/2022 HGB 14.5 09/04/2022 HGB 15.4 09/03/2021 HEMATOCRIT 46.2 09/03/2021 -ordered repeat iron panel 12/03/24 Assessment & Plan (12/03/2024 10:01 AM EDT): Lab Results Component Value Date HGB 14.1 11/12/2024 HGB 13.8 (L) 07/18/2024 HGB 14.7 10/14/2022 HGB 14.5 09/04/2022 HGB 15.4 09/03/2021 HEMATOCRIT 46.2 09/03/2021 -ordered repeat iron panel 12/03/24 Orders: CBC auto differential; Future Ferritin; Future TSH with Reflex to Free T4; Future Iron And Total Iron Binding Capacity; Future Vitamin B12 (Cobalamin) and Folate Panel, Serum; Future Unintentional weight loss 12/03/2024 Overview (12/03/2024): Reports unintentional weight loss and fatigue. Lost 74 lbs over the past 1.5 yrs, some of the time being on GLP-1, but continues to loose weight rapidly since stopping GLP-1. Father has history of colon cancer. Pt had a positive Cologuard. PSA 0.56, 09/27/24 -ordered TSH and CEA 12/03/24 -last HIV was negative 2021, will repeat 12/03/24. Assessment & Plan (12/03/2024 10:01 AM EDT): Reports unintentional weight loss and fatigue. Lost 74 lbs over the past 1.5 yrs, some of the time being on GLP-1, but continues to loose weight rapidly since stopping GLP-1. Father has history of colon cancer. Pt had a positive Cologuard. PSA 0.56, 09/27/24 -ordered TSH and CEA 12/03/24 -last HIV was negative 2021, will repeat 12/03/24. Orders: CEA; Future HIV-1/2 Antigen and Antibodies, Fourth Generation, with Reflexes; Future Family history of colon cancer 07/04/2024 Assessment & Plan (12/03/2024 10:01 AM EDT): Reports unintentional weight loss and fatigue. Lost 74 lbs over the past 1.5 yrs, some of the time being on GLP-1, but continues to loose weight rapidly since stopping GLP-1. Father has history of colon cancer. Pt had a positive Cologuard. PSA 0.56, 09/27/24 -ordered TSH and CEA 12/03/24 -last HIV was negative 2021, will repeat 12/03/24. Bone spur 09/15/2023 Urinary incontinence 09/02/2023 Overview (09/02/2023): -referral to urology done 08/31/23 Assessment & Plan (09/02/2023 10:18 AM EDT): -referral to urology done 08/31/23 Positive colorectal cancer screening using Colog uard test 09/02/2023 Overview (12/03/2024): -Cologuard was positive on 02/07/2023 -he was referred to GI. Cardiac clearance was needed prior to procedure -he is scheduled to see the community education coordinator September 07, 2023 -he is scheduled for [...] rest. 3. Transient ischemic dilatation not present. -ordered TSH and CEA 12/03/24 Assessment & Plan (12/03/2024 10:01 AM EDT): -Cologuard was positive on 02/07/2023 -he was referred to GI. Cardiac clearance was needed prior to procedure -he is scheduled to see the community education coordinator September 07, 2023 -he is scheduled for [...] rest. 3. Transient ischemic dilatation not present. -ordered TSH and CEA 12/03/24 Assessment & Plan (09/02/2023 10:22 AM EDT): -Cologuard was positive on 02/07/2023 -he was referred to GI. Cardiac clearance was needed prior to procedure -he is scheduled to see the community education coordinator September 07, 2023 -he is scheduled for [...] May 25, 2023 Urinary hesitancy 09/02/2023 Overview (12/03/2024): -seen by [facility] 10/27/23 -tamulsosin 0.4 started 10/27/23 and PSA was normal -US renal Unremarkable renal ultrasound 12/01/2023 -note from Layla Marrufo NP reviewed 04/05/24 Continue Flomax as discussed and prescribed. Class 2 severe obesity due t o [...] Calculated 08/04/23 The ASCVD Risk score (Deidra BUSATMANTE, et al., 2019) failed to calculate for [...] currently in physical therapy Assessment & Plan (12/03/2024 10:01 AM EDT): MRI 05/11/23 1. 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 -He was referred back to document control specialist 01/2021 -Pt seen cardiology 10/2021 with [...] discontinued. -Followed by Dr. Matias Marcelino of [facility], note from 09/04/24 reviewed, was in atrial fibrillation in office referred to EP again for ablation Dr. Felton -Saw Evonne Gillespie, ADELINE 01/21/2023 -continue Sotolol 120 mg 2 tablets BID. -continue Pradaxa Assessment & Plan (12/03/2024 10:01 AM EDT): Pt with atrial flutter/fibrillation suspected [...] rate control. -He was referred back to document control specialist 01/2021 -Pt seen cardiology 10/2021 with [...] discontinued. -Followed by Dr. Matias Marcelino of [facility], note from 09/04/24 reviewed, [...] rate control. -He was referred back to document control specialist 01/2021 -Pt seen cardiology 10/2021 with [...] discontinued. -Followed by Dr. Matias Marcelino of [facility] -Saw Evonne Gillespie NP [...] rate control. -He was referred back to document control specialist 01/2021 -Pt seen cardiology 10/2021 with [...] discontinued. -Followed by Dr. Matias Marcelino of [facility] -Saw Evonne Gillespie NP [...] rate control. -He was referred back to document control specialist 01/2021 -Pt seen cardiology 10/2021 with [...] discontinued. -Followed by Dr. Matias Marcelino of [facility] -Saw Evonne Gillespie NP [...] been asymptomatic. He was referred back to document control specialist 01/2021 He is awaiting a new [...] discontinued. Other specified health status 10/13/2022 Overview (12/03/2024): -next comprehensive annual evaluation due after 12/03/25 -eye care facilitated by James Vernon last seen 06/22/2022 -dental home is [facility] proxy filed 12/03/24 Assessment & Plan (12/03/2024 10:01 AM EDT): -next comprehensive annual evaluation due after 12/03/25 -eye care facilitated by James Vernon last seen 06/22/2022 -dental home is [facility] -[facility] care proxy filed 12/03/24 Assessment & Plan (09/02/2023 10:25 AM EDT): -next physical exam due after 01/25/2024 -eye care facilitated by [facility] last seen 06/22/2022 -dental home is Assessment & Plan (05/25/2023 10:43 AM EDT): -next physical exam due after 01/25/2024 -eye care facilitated by [facility] last seen 06/22/2022 -dental home is Assessment & Plan (01/24/2023 11:01 AM EST): -next physical exam due after 01/25/2024 -[facility] last seen 06/22/2022 -dental home is Lower extremity edema 08/18/2022 Assessment & Plan (08/18/2022 12:02 PM EDT): 1 + pitting edema in both extremities likely in setting of diltiazem use last echo in chart 12/2021: ef 50-60%, Moderate increase LV wall thickening ,diastolic dysfunction indeterminate -continue to f with community education coordinator Cardiomyopathy 03/29/2022 Overview (12/03/2024): Possibly due to atrial fib. Pt is already on Sotolol. Pressure is too low for ORLIN or ARB but orlin on list so referral to pharmacy for med rec Last LVEF 50-55% 03/2019 Cardiac cath 2013 no significant CAD, stress MIBI 2016 unremarkable. [...] the test reported separately. Assessment & Plan (12/03/2024 10:01 AM EDT): Possibly due to atrial fib. Pt is already on Sotolol. Pressure is too low for ORLIN or ARB but orlin on list so referral to pharmacy for med rec Last LVEF 50-55% 03/2019 Cardiac cath 2013 no significant CAD, stress MIBI 2016 unremarkable. [...] Plantar fasciitis 08/17/2017 Mild intermittent asthma 12/06/2016 Assessment & Plan (12/03/2024 10:01 AM EDT): Currently controlled. Insomnia 05/11/2012 Arthritis of right acromioclavicular joint 01/09 Depressive disorder 01/10/2012 Type 2 diabetes mellitus with hyperosmolarity, u ncontrolled 01/10/2012 Overview (12/03/2024): Diabetes is not controlled. Followed by [employer], Dr. Warner, note from 10/16/24 reviewed -has Dexacom GCM Lab Results Component Value Date HGBA1C 8.4 (A) 12/03/2024 HGBA1C 9.3 (A) 07/18/2024 HGBA1C 9.7 (A) 05/25/2023 - Lab Results Component Value Date CREATININE 0.79 11/12/2024 EGFR >60 11/12/2024 MICROALBCREU TNP 12/07/2023 MICROALBCREU 12.7 10/14/2022 LDLCHOLCAL 77 10/14/2022 -Orlin/Arb: lisinopril 5mg -Statin therapy: atorvastatin 80mg -Diabetic eye exam: 03/21/24 with [facility] -Continue lifestyle modifications -Followed by Dr. Warner assistant grocery -continue Jardiance 25 daily -per Endo 02/06/25 Humulin U500 breakfast 55 units take 80 units if over 200 Supper 55 units take 70 if over 200 -Change Trulicity to Mounjaro and back to Trulicity 4.5 weekly on 09/2024 -Continue Jardiance -ordered repeat routine labs 12/03/24 Assessment & Plan (12/03/2024 10:01 AM EDT): Diabetes is not controlled. Followed by [employer], Dr. Warner, note from 10/16/24 reviewed -has Dexacom GCM Lab Results Component Value Date HGBA1C 8.4 (A) 12/03/2024 HGBA1C 9.3 (A) 07/18/2024 HGBA1C 9.7 (A) 05/25/2023 - Lab Results Component Value Date CREATININE 0.79 11/12/2024 EGFR >60 11/12/2024 MICROALBCREU TNP 12/07/2023 MICROALBCREU 12.7 10/14/2022 LDLCHOLCAL 77 10/14/2022 -Orlin/Arb: lisinopril 5mg -Statin therapy: atorvastatin 80mg -Diabetic eye exam: 03/21/24 with [facility] -Continue lifestyle modifications -Followed by Dr. Warner assistant grocery -continue Jardiance 25 daily -per Endo 02/06/25 Humulin U500 breakfast 55 units take 80 units if over 200 Supper 55 units take 70 if over 200 -Change Trulicity to Mounjaro and back to Trulicity 4.5 weekly on 09/2024 -Continue Jardiance -ordered repeat routine labs 12/03/24 Orders: POCT glycosylated hemoglobin (Hgb A1c) POCT hemoglobin docked device POCT glucose manually resulted Albumin, Random Urine W/Creatinine; Future Hepatic Function Panel; Future Lipid Panel, Standard; Future Basic Metabolic Panel; Future Assessment & Plan (09/02/2023 10:24 AM EDT): Diabetes is not controlled. Followed by [employer], Dr. Warner -has Dexacom GCM Lab Results Component Value Date HGBA1C 9.7 (A) 05/25/2023 HGBA1C 9.1 (A) 01/24/2023 HGBA1C 8.9 (A) 08/18/2022 - Lab Results Component Value Date CREATININE 0.81 10/14/2022 EGFR >60 10/14/2022 MICROALBCREU 12.7 10/14/2022 MICROALBCREU TNP 04/06/2022 LDLCHOLCAL 77 10/14/2022 -Orlin/Arb: lisinopril 5mg -Statin therapy: atorvastatin 80mg -Diabetic eye exam: at [facility] with Gopal Alden 06/22/2022 -Diabetic foot exam: -Continue lifestyle modifications -Continue current medications -Followed by Dr. Warner assistant grocery -continue Trulicity 4.5mg weekly -continue Jardiance 25 daily -continue humulin R U 500 0 units tid Assessment & Plan (05/25/2023 10:47 AM EDT): Diabetes is not controlled. Followed by [employer], Dr. Warner -has Dexacom GCM Lab Results Component Value Date HGBA1C 9.1 (A) 01/24/2023 HGBA1C 8.9 (A) 08/18/2022 Lab Results Component Value Date MICROALBUR 13.0 10/14/2022 CREATININE 0.81 10/14/2022 -Seen by endocrinology on 10/12/2022. No changes made. -Changes: None -Orlin/Arb: lisinopril 5mg -Statin therapy: atorvastatin 80mg -Diabetic eye exam: at [facility] with Gopal Alden 06/22/2022 -Diabetic foot exam: -Continue lifestyle modifications -Continue current medications -Followed by Dr. Warner assistant grocery -continue Trulicity 4.5mg weekly -continue Jardiance 25 daily -Continue humulin R U 500 0 units tid Assessment & Plan (01/24/2023 12:08 PM EST): Diabetes is not controlled. Followed by [employer], Dr. Warner -has Dexacom GCM Lab Results Component Value Date HGBA1C 9.1 (A) 01/24/2023 HGBA1C 8.9 (A) 08/18/2022 Lab Results Component Value Date MICROALBUR 13.0 10/14/2022 CREATININE 0.81 10/14/2022 -Seen by endocrinology on 10/12/2022. No changes made. -Changes: None -Orlin/Arb: lisinopril 5mg -Statin therapy: atorvastatin 80mg -Diabetic eye exam: at [facility] with Gopal Alden 06/22/2022 -Diabetic foot exam: -Continue lifestyle modifications -Continue current medications -Followed by Dr. Warner assistant grocery -continue Trulicity 4.5mg weekly -continue Jardiance 25 [...] modifications -Continue current medications Dyslipidemia 01/10/2012 Overview (12/03/2024): Lab Results Component Value Date CHOL 128 10/14/2022 CHOL 113 04/06/2022 TRIG 96 10/14/2022 TRIG 68 04/06/2022 HDL 32 10/14/2022 HDL 24 04/06/2022 LDLCHOLCAL 77 10/14/2022 LDLCHOLCAL 76 04/06/2022 -continue lifestyle modification -continue atorvastatin 80mg -ordered repeat FLP ans HFP 12/03/24 Assessment & Plan (12/03/2024 10:01 AM EDT): Lab Results Component Value Date CHOL 128 10/14/2022 CHOL 113 04/06/2022 TRIG 96 10/14/2022 TRIG 68 04/06/2022 HDL 32 10/14/2022 HDL 24 04/06/2022 LDLCHOLCAL 77 10/14/2022 LDLCHOLCAL 76 04/06/2022 -continue lifestyle modification -continue atorvastatin 80mg -ordered repeat FLP ans HFP 12/03/24 Assessment & Plan (09/02/2023 10:24 AM EDT): [...] 09/03/2021 -continue lifestyle modifications Hypertension 01/10/2012 Overview (12/03/2024): -Blood pressure is at goal 12/03/24 -Continue lifestyle modifications -Continue current medications Assessment & Plan (12/03/2024 10:01 AM EDT): -Blood pressure is at goal 12/03/24 -Continue lifestyle modifications -Continue current medications Assessment [...] current medications Lateral epicondylitis 01/10/2012 Morbid obesity (CMS/HCC) 01/10/2012 Assessment & Plan (12/03/2024 10:18 AM EDT): Multiple joint pain 01/10/2012 Obstructive sleep apnea syndrome 01/10/2012 Overview (01/24/2023): Does not tolerate CPAP-pt willing to be evaluated again by sleep med and check how can improve use of machine ,explained importance to pt for tx -Will try to refer in [facility] 01/24/2023 Assessment & Plan (12/03/2024 10:01 AM EDT): Does not tolerate CPAP-pt willing to be evaluated again by sleep med and check how can improve use of machine ,explained importance to pt for tx Assessment & Plan (09/02/2023 10:22 AM EDT): Does not tolerate CPAP-pt willing to be evaluated again by sleep med and check how can improve use of machine ,explained importance to pt for tx -Will try to refer in [facility] 01/24/2023 Assessment & Plan (01/24/2023 11:12 AM EST): Does not tolerate CPAP-pt willing to be evaluated again by sleep med and check how can improve use of machine ,explained importance to pt for tx -Will try to refer in [facility] 01/24/2023 Assessment & Plan (08/18/2022 12:01 PM EDT): Does not tolerate CPAP-pt willing to be evaluated again by sleep med and check how can improve use of machine ,explained importance to pt for tx -referred today to sleep med Trochanteric bursitis of right hip 01/10/2012 Resolved Problems Problem Noted Date Diagnosed Date Resolved Date Dietary counseling 07/04/2024 5 Dietary counseling 09/02/2023 4 Exercise counseling 09/02/2023 12/04/19 Dental calculus 06/15/2023 08/05/2023 Missing teeth, acquired [...] hb1ac is 8.9-per pt improving following w assistant grocery -last echo in chart 12/2021: ef 50-60%, [...] ablation and after it, clearance from his community education coordinator prior to have eye surgery --I will have this note fax to his eye doctor today -if pt is cleared from his community education coordinator then pt will need to hold on pradaxa the morning of procedure unless indicated differently by his community education coordinator,hold as well PO meds in am of procedure and to use half insuline basal insuline at night prior surgery. Also pt will need to check with his community education coordinator if prior eye surgery will need to hold digoxin and diltiazem if meds are going to be continued after ablation. -I called today as well to his community education coordinator at # [phone] at [facility] and left my phone info to get a call back to discuss with community education coordinator, I also inform pt to discuss w his community education coordinator at his upcoming visit in 2 days about need for cardiac clearance and recommendations for cardiac medications Precordial pain 03/29/2022 01/24/2023 Overview (10/14/2022): lvef 57% July [address] Marcelino 07/22/21 Cardiac cath 2012 no significant CAD and stress mibi 2016 was unremarkable currently not active. Assessment & Plan (01/24/2023 9:35 AM EST): lvef 57% July [address] Marcelino 07/22/21 Cardiac cath 2012 no significant CAD and stress mibi 2016 was unremarkable currently not active. Assessment & Plan (10/14/2022 9:10 AM EDT): lvef 57% July [address] Marcelino 07/22/21 Cardiac cath 2012 no significant CAD and stress mibi 2016 was unremarkable currently not active. Hematochezia 05/07/2013 08/05/2023 Asthma 01/10/2012 10/13/2022 Encounters Date Type Department Care Team Description 12/03/2024 9:00 AM EDT Office Visit [facility] [address] [place] [phone] Hillary Zamora MD Obstructive sleep apnea syndrome (Primary Dx); Mild intermittent asthma without complication; Cardiomyopathy, unspecified type (CMS/HCC); Chronic atrial fibrillation (CMS/HCC); Cord compression (CMS/HCC); Primary hypertension; Dyslipidemia; Type 2 diabetes mellitus with hyperosmolarity, uncontrolled (CMS/HCC); Anemia, unspecified type; Chronic low back pain without sciatica, unspecified back pain laterality; Positive colorectal cancer screening using Cologuard test; Family history of colon cancer; Unintentional weight loss; Dietary counseling; Exercise counseling; Encounter for immunization; Other specified health status; Morbid obesity (CMS/HCC) 12/03/2024 Telephone [facility] [address] [place] [phone] Hillary Zamora MD [facility] 12/03/2024 Travel 11/30/2024 Telephone [facility] [address] [place] [phone] Miguel Sheri CANDELARIA 11/12/2024 Orders Only GENERIC EXTERNAL DATA DEPARTMENT Provider, Generic External Data 10/31/2024 Refill [facility] [address] [place] [phone] Hillary Zamora MD Type 2 diabetes mellitus with hyperosmolarity, uncontrolled ([facility]); Dyslipidemia 10/16/2024 Orders Only GENERIC EXTERNAL DATA DEPARTMENT Provider, Generic External Data 10/10/[address] [phone] Hillary Zamora MD Type 2 diabetes mellitus with hyperglycemia, with long-term current use of insulin ([facility]) 10/01/[address] [phone] Hillary Zamora MD 09/28/[address] [phone] Hillary Zamora MD chartprep 09/27/[address] [phone] Hillary Zamora MD Appointment Confirmation (I book the appt on October 01 at 1:45pm.) 09/27/2024 Travel 09/27/2024 Orders Only GENERIC EXTERNAL DATA DEPARTMENT Provider, Generic External Data 09/26/2024 Patient Outreach [address] [phone] Hillary Zamora MD Pre-visit Planning (Pre-visit planning - LVM ) 09/24/2024 Travel from Last 3 Months Immunizations Immunization Administration Dates Next Due Hep B, adult 01/20/2022,12/15/2018,02/16/2017 Influenza Injectable Quadriv alant Preservative Free IIV4 MDCK 12/26/2019 Influenza injectable quadriv alent IIV4 with preservative 12/29/2017,02/16/2017 Influenza injectable quadriv alent preservative free 01/20/2022,12/15/2018 Influenza, IIV3, injectable 12/01/2009 Influenza, seasonal, injecta ble, preservative free 12/03/2024 Moderna Covid-19 Vaccine 12+ 01/10/2021,06/05/19 21,05/07/2020 Moderna Covid-19 Vaccine 6+ Bivalent 04/02/2022 Pneumococcal Conjugate PCV 20 10/14/2022 Pneumococcal Polysaccharide PPSV23 07/17/2014, Tdap 12/03/2024,07/17/2014,09/30/2009 Zoster, Recombinant 10/14/2022,03/15/2020 Family History Medical History [...] Date Recorded Patient Health Questionnaire-9 Score 0 12/03/2024 Patient Health Questionnaire-9 Score 0 12/03/2024 Last PHQ-9: Questionnaire Data Not on file 0 12/03/2024 Housing Stability Answer Date Recorded What is your housing situation today? I have j luis jacobs 12/03/[address] you li ve. Do you have problems with any of the following? None of the above 12/03/2024 Food Insecurity Answer Date Recorded Within the past 12 months, y ou worried that your food would run out before you got money to buy more: Never True 12/03/2024 Within the past 12 months,th e food you bought just didn't last and you didn't have enough money to get more: Never True Transportation Answer Date Recorded In the past 12 months, has l ack of transportation kept you from medical appts, meetings, work or from getting things needed for daily living? No 12/03/2024 Utilities Answer Date Recorded In the past 12 months, has t he electric, gas, oil or water company threatened to shut off services in your home? No 12/03/2024 Depression Answer Date Recorded Patient Health Questionnaire-2 Score 0 12/03/2024 Internet Access Answer Date Recorded Internet Access Q1 No 12/03/2024 Internet Access Q2 I do not want or need it 11/06 Sex and Gender Information Value Date Recorded Sex Assigned at Male 01/04/2022 10:19 AM EDT Legal Sex Male 10:19 AM EDT Gender Identity Male 01/04/2022 10:19 AM EDT Sexual Orientation Choose not to disclose 2021 10:19 AM EDT Last Filed Vital Signs Vital Sign Reading Time Taken Comments Blood Pressure 102/86 12/03/2024 8:49 AM EDT Pulse 98 12/03/2024 8:49 AM EDT Temperature 36.7 C (98.1 F) 12/03/2024 8:49 AM EDT Respiratory Rate 20 12/03/2024 8:49 AM EDT Oxygen Saturation 98% 12/03/2024 8:49 AM EDT Inhaled Oxygen Concentration - - Weight 88.8 kg (195 lb 12.8 oz) 12/03/2024 8:49 AM EDT Height 182.9 cm (6') 05/25/2023 10:30 AM EDT Body Mass Index 26.56 05/25/2023 10:30 AM EDT Plan of Treatment Upcoming Encounters Date Type Department Care Team (Late st Contact Info) Description 02/04/2025 9:00 AM EST Office Visit [facility] [address] [place] [address] Hillary Zamora MD [address] [place] [address] Health Maintenance Due Date Last Done Comments CT Colonography 1965 Colonoscopy 1965 FIT 1965 Sigmoidoscopy 1965 RSV Patients and Patients Aged 60 years or older (1 - Risk 60-74 years 1-dose series) 2023 Dental Oral Exam 12/14/2023 06/13/2023 Dental Prophylaxis 12/16/2023 06/15/2023 Colorectal Cancer Screening 02/08/2024 FIT DNA/Cologuard 02/08/2024 02/07/2023 FOBT 02/08/2024 02/07/2023 Dental X-Ray: Bitewings 06/13/2024 06/13/2023 COVID-19 Vaccine ( season) 2024 04/02/2022, 01/10/2021, 06/04/2020, Additional history exists Diabetes: Hemoglobin A1C 03/04/2025 025, 07/18/2024, 05/25/2023, Additional history exists Alcohol/Substance Use Screening 12/03/2025 12/03/2024 Depression Screening 12/03/2025 12/03/2024, 12/04/19 25 Diabetes: Foot Exam 12/03/2025 12/03/2024, 12/03/2024, 12/03/2024, Additional history exists Diabetes: Urine Protein Screening 12/03/2025 12/03/2024, 12/07/2023, 10/14/2022, Additional history exists Disability Screening 12/03/2025 12/03/2024 Lipid Panel 12/03/2025 12/03/2024, 10/05, 04/06/2022, Additional history exists SDOH Screening 12/03/2025 12/03/2024 Tobacco Screening 12/03/2025 12/03/2024 Eye Exam 03/21/2026 03/21/2024, 03/07, 03/21/2024, Additional history exists Dental X-Ray: Full Mouth 06/13/2026 06/13/2023 DTaP/Tdap/Td Vaccines (4 - Td or Tdap) 12/03/2034 12/03/2024, 07/17/2014, 09/30/2009 Hepatitis B Vaccines Completed 01/20/2022, 12/15/2018, 02/16/2017 HIV Screening Completed 10/14/2022 Hepatitis C Screening Completed 10/14/2022 Pneumococcal Vaccine: 50+ Years Completed 10/14/2022, 07/17/2014, 09/30/2009 Zoster Vaccines Completed 10/14/2022, 03/15/2020 Influenza Vaccine Completed 12/03/2024, , 12/26/2019, Additional history exists HIB Vaccines Aged Out No longer eligi [...] Procedure Name Priority Date/Time Associated Diagnosis Comments CEA Routine 12/03/2024 9:41 AM EDT Unintentional weight loss BASIC METABOLIC PANEL Routine 12/03/2024 9:41 AM EDT Type 2 diabetes mellitus with hyperosmolarity, uncontrolled (CMS/HCC) LIPID PANEL, STANDARD Routine 12/03/2024 9:41 AM EDT Type 2 diabetes mellitus with hyperosmolarity, uncontrolled (CMS/HCC) HEPATIC FUNCTION PANEL Routine 12/03/2024 9:41 AM EDT Type 2 diabetes mellitus with hyperosmolarity, uncontrolled (CMS/HCC) ALBUMIN, RANDOM URINE W/CREATININE Routine 12/03/2024 9:41 AM EDT Type 2 diabetes mellitus with hyperosmolarity, uncontrolled (CMS/HCC) VITAMIN B12/FOLATE, SERUM PANEL Routine 12/03/2024 9:41 AM EDT Anemia, unspecified type IRON AND TOTAL IRON BINDING CAPACITY Routine 12/03/2024 9:41 AM EDT Anemia, unspecified type TSH W/REFLEX TO FT4 Routine 12/03/2024 9 :41 AM EDT Anemia, unspecified type FERRITIN Routine 12/03/2024 9:41 AM EDT Anemia, unspecified type CBC WITH AUTO DIFFERENTIAL Routine 12/03/2024 9:41 AM EDT Anemia, unspecified type POCT GLUCOSE Routine 12/03/2024 9:00 AM EDT Type 2 diabetes mellitus with hyperosmolarity, uncontrolled (CMS/HCC) POCT GLYCOSYLATED HEMOGLOBIN (HGB A1C) Routine 12/03/2024 8:58 AM EDT Type 2 diabetes mellitus with hyperosmolarity, uncontrolled (CMS/HCC) XR RIBS 3 VIEWS RIGHT W CHEST [...] PSA, TOTAL Routine 09/27/2024 7:40 AM EDT PROPHYLAXIS - ADULT Routine 06/15/2023 [...] ([place] DPH) Routine 10/14/2022 11:04 AM EDT HM DIABETES EYE EXAM Routine 06/22/2022 from Last 3 Months or Most Recently Relevant to Health Maintenance Results * Vitamin B12 (Cobalamin) and Folate Panel, Serum (12/03/2024 9:41 AM EDT) Vitamin B12 429 200 - 900 pg/mL [facility] Comment:NORMAL 200-900 PG/ML INDETERMINATE 160-199 PG/ML DEFICIENT < 160 PG/ML Folate 10.5 > or = 4.0 ng/mL [facility] Comment:Reference Values:> o r = 4.0 ng/mL< 4.0 ng/mL suggests folate deficiency Methotrexate, aminopterin and folinic acid(leucovorin) are chemotherapeutic agents whose molecularstructures are similar to folate; therefore, the Architectfolate assay cannot be used for patients using these drugs. Blood Venous blood specimen / Unknown 12/03/2024 9:41 AM EDT 12/03/2024 11:13 AM EDT Hillary Zamora MD LAB BLOOD ORDERABLES Final Result [facility] [address] [place] [phone] * TSH with Reflex to Free T4 (12/03/2024 9:41 AM EDT) Pathologist [facility] TSH reflex Free T4 1.62 0.32 - 4.0 uIU/mL [facility] Blood Venous blood specimen / Unknown 12/03/2024 9:41 AM EDT 12/03/2024 11:13 AM EDT Hillary Zamora MD LAB BLOOD ORDERABLES Final Result Performing Organization Address City/[facility]/ZIP Co de Phone Number [facility] [address] [place] [phone] * Albumin, Random Urine W/Creatinine (12/03/2024 9:41 AM EDT) Pathologist [facility] Creatinine, Urine 49.28 mg/dL [facility] Microalbumin Urine <5.0 mg/L [facility] Microalbum Creatinine Ratio Ur TNP <30 ug/mg cr [facility] Comment:Unable to calculate albumin/creatinine ratio due to lowmicroalbumin or creatinine result. Urine 12/03/2024 9:41 AM EDT 12/03/2024 11:02 AM EDT us Hillary Zamora MD LAB URINE ORDERABLES Final Result [facility] [address] [place] [phone] * CBC auto differential (12/03/2024 9:41 AM EDT) Only the most recent of2 resultswithin the time period is included. White Blood Count 5.3 4.8 - 10.8 X10*3/uL [facility] Red Blood Count 4.80 4.60 - 5.80 X10*6/uL [facility] Hemoglobin 15.5 14.0 - 18.0 g/dl [facility] Hematocrit 46.0 42.0 - 52.0 % [facility] Mean Corpuscular Volume 95.8 80.0 - 98.0 fL [facility] Mean Corpuscular Hemoglobin 32.3 27.0 - 33.0 pg [facility] Mean Corpuscular HGB Conc 33.7 31.0 - 36.0 g/dl [facility] Red Cell Distribution Width 13.2 11.0 - 16.0 % [facility] Platelet Count 209 160 - 400 X10*3/uL [facility] Mean Platelet Volume 10.0 9.4 - 12.4 fL [facility] Neutrophils Percent Auto 54.8 45 - 73 % [facility] Imm Gran Pct Auto 0.4 0.0 - 0.4 % [facility] Lymphocytes Percent Auto 34.3 20 - 40 % [facility] Monocytes Percent Auto 7.9 2 - 11 % [facility] Eosinophils Percent Auto 1.7 0 - 4 % [facility] Basophils Percent Auto 0.9 0 - 2 % [facility] NRBC Pct Auto 0.0 0.0 - 0.2 /100WBC [facility] Neutrophils Absolute Auto 2.9 2.0 - 8.3 x10*3/uL [facility] Imm Gran Abs Auto 0.02 0.00 - 0.03 X10*3/uL [facility] Lymphocytes Absolute Auto 1.8 1.2 - 4.9 X10*3/uL [facility] Monocytes Absolute Auto 0.4 0.1 - 1.2 X10*3/uL [facility] Eosinophils Absolute Auto 0.1 0.0 - 0.4 X10*3/uL [facility] Basophils Absolute Auto 0.1 0.0 - 0.2 X10*3/uL [facility] NRBC Abs Auto 0.000 0.0 - 0.012 X10*3/uL [facility] Blood Venous blood specimen / Unknown 12/03/2024 9:41 AM EDT 12/03/2024 11:13 AM EDT Hillary Zamora MD LAB BLOOD ORDERABLES Final Result [facility] [address] [place] [phone] * Iron And Total Iron Binding Capacity (12/03/2024 9:41 AM EDT) Iron 106 45 - 160 mcg/dL [facility] Total Iron Binding Capacity 280 228 - 428 mcg/dL [facility] Percent Iron Saturation 38 15 - 50 % [facility] Unsaturated Iron Binding 174 ug/dL [facility] Blood Venous blood specimen / Unknown 12/03/2024 9:41 AM EDT 12/03/2024 11:13 AM EDT Hillary Zamora MD LAB BLOOD ORDERABLES Final Result [facility] [address] [place] [phone] * Ferritin (12/03/2024 9:41 AM EDT) Pathologist [facility] Ferritin 148 20 - 250 ng/mL [facility] Blood Venous blood specimen / Unknown 12/03/2024 9:41 AM EDT 12/03/2024 11:13 AM EDT Hillary Zamora MD LAB BLOOD ORDERABLES Final Result Performing Organization Address City/[facility] Co de Phone Number [facility] [address] [place] [phone] * CEA (12/03/2024 9:41 AM EDT) [facility] Carcinoembryonic Antigen <1.73 ng/mL [facility] Comment:CEA Reference Range: 93.4% Non-Smokers = 0.0-3.0 ng/mL 95.6% Smokers = 0.0-5.0 ng/mLCEA Methodology: Gaming Alinity i ChemiluminescentMicroparticle Immunoassay (CMIA)CEA testing can have significant value in monitoring ofpatients with diagnosed malignancies in whom changingconcentrations of CEA are observed. Values obtained withdifferent assay methods cannot be used interchangeably. Blood Venous blood specimen / Unknown 12/03/2024 9:41 AM EDT 12/03/2024 11:13 AM EDT Hillary Zamora MD LAB BLOOD ORDERABLES Final Result [facility] [address] [place] [phone] * Hepatic Function Panel (12/03/2024 9:41 AM EDT) Pathologist [facility] Bilirubin, Total 0.5 0.0 - 1.0 mg/dL [facility] Bilirubin, Direct 0.2 0.0 - 0.5 mg/dL [facility] Aspartate Amino Transferase 32 5 - 37 U/L [facility] Alanine Aminotransferase 35 0 - 40 U/L [facility] Total Protein 6.9 6.5 - 8.0 g/dL [facility] Albumin Level 4.4 3.5 - 5.0 g/dL [facility] Alkaline Phosphatase 85 39 - 117 U/L [facility] Blood Venous blood specimen / Unknown 12/03/2024 9:41 AM EDT 12/03/2024 11:13 AM EDT us Hillary Zamora MD LAB BLOOD ORDERABLES Final Result [facility] [address] [place] [phone] * (ABNORMAL) Lipid Panel, Standard (12/03/2024 9:41 AM EDT) Triglycerides 80 <150 mg/dL [facility] Comment:Desirable Triglyceri de: less than 150 mg/dLBorderline High Triglyceride 150-199 mg/dLHigh Triglyceride: 200-499 mg/dLVery High Triglyceride: greater than or equal to 5OO mg/dL Cholesterol 97 <200 mg/dL [facility] Comment:Desirable Cholestero l: less than 200 mg/dLBorderline High Cholesterol: 200-239 mg/dLHigh Cholesterol: greater than 239 mg/dL LDL Cholesterol Calculated 49 <100 mg/dL [facility] Comment:Desirable LDL: less than 100 mg/dLNear Optimal/Above Optimal LDL: 110- 129 mg/dLBorderline High LDL: 130-159 mg/dLHigh LDL: 160-189 mg/dLVery High LDL: greater than or equal to 190 mg/dL HDL Cholesterol 32(L) >40 mg/dL [facility] Comment:Desirable HDL: great er than 40 mg/dL Note: This HDL assay may give artificially low results in patients with liver disease. Blood Venous blood specimen / Unknown 12/03/2024 9:41 AM EDT 12/03/2024 11:13 AM EDT Hillary Zamora MD LAB BLOOD ORDERABLES Final Result Performing Organization Address [facility] Co de Phone Number [facility] [address] [place] [phone] * (ABNORMAL) Basic Metabolic Panel (12/03/2024 9:41 AM EDT) Pathologist [facility] Sodium 140 135 - 145 mmol/L [facility] Potassium 4.6 3.3 - 5.1 mmol/L [facility] Chloride 105 96 - 108 mmol/L [facility] Carbon Dioxide 30(H) 22 - 29 mmol/L [facility] Anion Gap 10(L) 12 - 20 [facility] Urea Nitrogen (BUN) 14 9 - 16 mg/dL [facility] Creatinine, Serum 0.68 0.5 - 1.4 mg/dL [facility] Estimated Glomerular Filt Rate >60 [facility] Comment:Chronic Kidney Disea se: Estimated GFR < 60 mL/min/1.20t8Zswjsr Kidney Disease: Estimated GFR < 15 mL/min/1.73m2 Glucose 210(H) 60 - 115 mg/dL [facility] Calcium 9.7 8.4 - 10.2 mg/dL [facility] Blood Venous blood specimen / Unknown 12/03/2024 9:41 AM EDT 12/03/2024 11:13 AM EDT Hillary Zamora MD LAB BLOOD ORDERABLES Final Result Performing Organization Address [facility]/ZIP Co de Phone Number [facility] [address] [place] [phone] * (ABNORMAL) POCT glucose manually resulted (12/03/2024 9:00 AM EDT) Glucose Blood, POC 278(A) 60 - 200 mg/dL [employer] Media Lot # [id number] Lot# Expiration Date ,202,621 Blood Capillary blood specimen / Unknown 12/03/2024 9:00 AM EDT Hillary Zamora MD POINT OF CARE TEST ENTER/E DIT ORDERABLES Final Result * (ABNORMAL) POCT glycosylated hemoglobin (Hgb A1c) (12/03/2024 8:58 AM EDT) Hemoglobin A1C 8.4(A) 4.0 - 5.7 % [employer] Media Lot # [id number] Lot# Expiration Date 890,973 Blood Capillary blood specimen / Unknown 12/03/2024 8:58 AM EDT Hillary Zamora MD POINT OF CARE TEST ENTER/E DIT ORDERABLES Edited Result - Final * XR Ribs 3 Views Right with Chest 1 View (11/12/2024 1:30 PM EDT) Anatomical Region Laterality Modality Radiographic Claire ging 11/12/2024 1:30 PM EDT Narrative 11/12/2024 1:49 PM EDT [place] [address] XRay Report Signed Patient: Abraham Hoover MR#: [id number] : 1965 Acct:[id number] Age/Sex: 59 / M ADM Date: 11/12/24 Loc: .ED Attending Dr: Ordering Physician: Juan Carlos Patricio DO Date of Service: 11/12/24 Procedure(s): XR ribs RT min 3V w CXR1V Accession Number(s): [id number] cc: Hillary Zamora MD; Juan Carlos Patricio [...] Orlando Sherman MD 11/12/2024 01:47 PM EDT RP Dictated By: Orlando Sherman MD Signed By: <Electronically signed by Orlando Sherman MD in OV> 11/12/24 1347 DD/ 1330 TD/TT: 11/12/24 1339 Supervisor Cytogenetic Laboratory: Procedure Note Donotuseinterpreter, Image - 11/12/2024 [place] [address] XRay Report Signed Patient: Hoang HooveroMShilpi#: [id number] : 1965Acct:[id number] Age/Sex: 59 / MADM Date: 11/12/24 Loc: HO.ED Attending Dr: Ordering Physician: Juan Carlos Patricio DO Date of Service: 11/12/24 Procedure(s): XR ribs RT min 3V w CXR1V Accession Number(s): [id number] cc: Hillary Zamora MD; Juan Carlos Patricio [...] Orlando Sherman MD 11/12/2024 01:47 PM EDT RP Dictated By: Orlando Sherman MD Signed By: <Electronically signed by Orlando Sherman MD in OV> 11/12/24 1347 DD/ 1330 TD/TT: 11/12/24 1339 Supervisor Cytogenetic Laboratory: [facility] External Provider IMG XR PROCEDURES Edited Result - Final * CT Cervical Spine w/o Contrast (11/12/2024 12:56 PM EDT) Anatomical Region Laterality Modality Spine, C-spine Computed Tomogra phy 11/12/2024 12:5 6 PM EDT Narrative 11/12/2024 1:30 PM EDT [address] [address] [address] Scan Report Signed Patient: Abraham Hoover MR#: [id number] : 1965 Acct:[id number] Age/Sex: 59 / M ADM Date: 11/12/24 Loc: HO.ED Attending Dr: Ordering Physician: Farhana Silverman Date of Service: 11/12/24 Procedure(s): CT cervical spine wo IV con Accession Number(s): [id number] cc: Hillary Zamora MD; Farhana Silverman Report Number: [id number]: Total DLP = 531.00 mGy-cm Reason for [...] 11/12/24 1327 DD/ 1256 TD/TT: 11/12/24 1305 Supervisor Cytogenetic Laboratory: Procedure Note Donotuseinterpreter, Image - 11/12/[address] [place] [address] [address] Scan Report Signed Patient: Vicente AnsariOtilioMR#: [id number] : 1965Acct:[id number] Age/Sex: 59 / MADM Date: 11/12/24 Loc: HO.ED Attending Dr: Ordering Physician: Farhana Silverman Date of Service: 11/12/24 Procedure(s): CT cervical spine wo IV con Accession Number(s): [id number] cc: Hillary Zamora MD; Farhana Silverman Report Number: [id number]: Total DLP = 531.00 mGy-cm Reason for [...] Fleischner guidelines were followed. Electronically signed by: Geroge Baum MD 11/12/2024 01:27 PM EDT Dictated By: George Pena MD Signed By: <Electronically signed by George Cornejo MDin OV> 11/12/24 1327 DD/ 1256 TD/TT: 11/12/24 1305 Supervisor Cytogenetic Laboratory: [facility] External Provider IMG CT PROCEDURES Edited Result - Final * CT Head w/o Contrast (11/12/2024 12:56 PM EDT) Anatomical Region Laterality Modality Head, Neck Computed Tomogra phy 11/12/2024 12:5 6 PM EDT Narrative 11/12/2024 1:28 PM EDT [address] [address] [address] Scan Report Signed Patient: Abraham Hoover MR#: [id number] : 1965 Acct:[id number] Age/Sex: 59 / M ADM Date: 11/12/24 Loc: HO.ED Attending Dr: Ordering Physician: Farhana Silverman Date of Service: 11/12/24 Procedure(s): CT head/brain wo IV con Accession Number(s): [id number] cc: Hillary Zamora MD; Farhana Silverman Report Number: [id number]: Total DLP = 732.00 mGy-cm Reason for [...] 11/12/24 1326 DD/ 1256 TD/TT: 11/12/24 1305 Supervisor Cytogenetic Laboratory: Procedure Note Donotmarkter, Image - 11/12/[address] [address] [address] Scan Report Signed Patient: Vicente AnsariOtilioMR#: [id number] : 1965Acct:[id number] Age/Sex: 59 / MADM Date: 11/12/24 Loc: HO.ED Attending Dr: Ordering Physician: Farhana Silverman Date of Service: 11/12/24 Procedure(s): CT head/brain wo IV con Accession Number(s): [id number] cc: Hillary Zamora MD; Farhana Silverman Report Number: [id number]: Total DLP = 732.00 mGy-cm Reason for [...] 11/12/24 1326 DD/ 1256 TD/TT: 11/12/24 1305 Supervisor Cytogenetic Laboratory: [facility] External Provider IMG CT PROCEDURES Edited Result - Final * (ABNORMAL) Prothrombin Time-INR (11/12/2024 12:30 PM EDT) Prothrombin Time 14.6(H) 10.9 - 12.4 SEC [facility] INTERNATIONAL NORM RATIO 1.3(H) 0.9 - 1.1 [facility] Comment:INTERNATIONAL NORMAL IZED RATIO (INR) [...] 0 PM EDT 11/12/2024 12:32 PM EDT Generic External Data Provider LAB BLOOD ORDERAB LES Final Result [facility] [address] [place] [phone] * (ABNORMAL) Comprehensive Metabolic Panel (11/12/2024 12:30 PM EDT) Sodium 141 135 - 145 mmol/L [facility] Potassium 4.6 3.3 - 5.1 mmol/L [facility] Chloride 108 96 - 108 mmol/L [facility] Carbon Dioxide 25 22 - 29 mmol/L [facility] Anion Gap 13 12 - 20 [facility] Urea Nitrogen (BUN) 11 9 - 16 mg/dL [facility] Creatinine, Serum 0.79 0.5 - 1.4 mg/dL [facility] Creatinine Clr Calc Pharmacy 107.7 [facility] Comment:eGFR (calculated fro m the MDRD study equation) and eCrCl(calculated from the Cockcroft-Gault equation) are based ondifferent parameters and may not yield comparable results.If eCrCl result is absurd, please check patient'sheight/weight. Estimated Glomerular Filt Rate >60 [facility] Comment:Chronic Kidney Disea se: Estimated GFR < 60 mL/min/1.87w5Noioiy Kidney Disease: Estimated GFR < 15 mL/min/1.73m2 Glucose 173(H) 60 - 115 mg/dL [facility] Calcium 9.2 8.4 - 10.2 mg/dL [facility] Bilirubin, Total 0.7 0.0 - 1.0 mg/dL [facility] Aspartate Amino Transferase 27 5 - 37 U/L [facility] Alanine Aminotransferase 29 0 - 40 U/L [facility] Total Protein 6.5 6.5 - 8.0 g/dL [facility] Albumin Level 4.2 3.5 - 5.0 g/dL [facility] Alkaline Phosphatase 60 39 - 117 U/L [facility] 11/12/2024 12:3 0 PM EDT 11/12/2024 12:32 PM EDT us Generic External Data Provider LAB BLOOD ORDERAB LES Final Result [facility] [address] [place] [phone] * (ABNORMAL) Glucose, Whole Blood (10/16/2024 9:14 AM EDT) Glucose, Whole Blood 221(H) 60 - 115 mg/dL [facility] Comment:METER #: [id number] Testing performed in the Endocrinology Department [address], [address], [facility]. 10/16/2024 9:14 AM EDT 10/16/2024 9:20 AM EDT Generic External Data Provider LAB BLOOD ORDERAB LES Final Result Performing Organization Address City/[facility]/ZIP Co de Phone Number [facility] [address] [place] [phone] * PSA,Total (09/27/2024 7:40 AM EDT) Prostate Specific Antigen 0.56 <0.05 - 4.0 ng/mL [facility] Comment:PSA methodology: Shashank Thakur i ChemiluminescentMicroparticle Immunoassay (CMIA) 09/27/2024 7:40 AM EDT 09/27/2024 7:40 AM EDT Generic External Data Provider LAB BLOOD ORDERAB LES Final Result Performing Organization Address [facility] Co de Phone Number [facility] [address] [place] [phone] * (ABNORMAL) Cologuard?? colon cancer screening (02/07/2023 7:30 AM EST) Cologuard Result Positive( A) Negative 02/15/2023 9:47 AM EST [facility] (CLIA #:[id number]) Comment: POSITIVE TEST RESULT. A positive Cologuard [...] Frost. et al, N Engl J Med 2014;370(14):4973-7037.) Cologuard may produce a false negative or false positive result (no colorectal cancer or precancerous polyp present at colonoscopy follow up). A negative Cologuard test result does not guarantee the absence of CRC or advanced adenoma (pre-cancer). The current Cologuard screening interval is every 3 years. ([place] [employer] and U.S. Multi-Society Task Force). Cologuard performance data in a 10,000 patient pivotal study using colonoscopy as the reference method can be accessed at the following location: www.edPULSE/results. Additional description of the Cologuard test process, warnings and precautions can be found at [email or web address]. Stool specimen (specimen) 02/07/2023 7:30 AM EST 02/08/2023 3:13 PM EST us Hillary Zamora MD LAB MOLECULAR DIAGNOSTICS ORDERABLES Final Result [facility] (CLIA #:[id number]) [place] [address], * Hepatitis C Antibody Reflex (10/14/2022 11:04 AM EDT) Hepatitis C Antibody Nonreactive Nonreactive [facility] Comment:Antibodies to HCV no t detected; does not exclude early acuteHCV infection. 10/14/2022 11:0 4 AM EDT 10/14/2022 12:57 PM EDT Hillary Zamora MD LAB BLOOD ORDERABLES Final Result Performing Organization Address [facility]/ZIP Co de Phone Number [facility] [address] [place] [phone] * HIV Ab/Ag ([facility]) (10/14/2022 11:04 AM EDT) HIV AB/AG Nonreactive Nonreactive [facility] Comment:HIV-1 p24 Ag and/or HIV-1/HIV-2 Ab not detected.A test result that is nonreactive does not exclude thepossibility of exposure to or infection with HIV-1 and/orHIV-2. Nonreactive results in this assay for individualswith prior exposure to HIV-1 and/or HIV-2 may be due toantigen and antibody levels that are below the limit ofdetection of this assay.The [employer] HIV Ag/Ab Combo assay result andsupplemental assay results should be interpreted inconjunction with the patient's clinical presentation,history and other laboratory results. If the results areinconsistent with clinical evidence, additional testing issuggested to confirm the result. 10/14/2022 11:0 4 AM EDT 10/14/2022 12:57 PM EDT Hillary Zamora MD LAB BLOOD ORDERABLES Final Result Performing Organization Address [facility]/ZIP Co de Phone Number [facility] [address] [place] [phone] * Hm Diabetes Eye Exam (06/22/2022) Eye Exam Normal Normal Comment:[facility] Inocente Pitt MD HEALTH MAINTENANCE Final Result from Last 3 Months or Most Recently Relevant to Health Maintenance Insurance [facility] [address] [place] [id number] Advance Directives Documents on File Type Date Recorded Patient Train Dispatcher Expl anation Advance Directives and Living Will 12/04/2024 Health Care Proxy 12/03/24 Care Teams Creeler Relationship Specialty Start Date End Date Hillary Zamora MD [address] [place] [address] PCP - General Family Medicine 03/07/18 Orlando Warner MD [address] [place] [address] Endocrinology 03/29/24 Layla Marrufo NP [address] [place] [address] Urology 04/05/24 Meri Mauricio OD [address] [place] [address] Optometry 04/17/24 Matias Marcelino MD [address] [place] [address] Cardiology 09/06/24 Teetee Zacarias MERCERIZER MACHINE OPERATOR Endocrinology 03/29/24
--- OUTSIDE RECORDS SUMMARY | 2024-12-12 07:31 | XMS_ITS | Encounter Summary ---
Author Organization [employer] Address [address] [place] [address] Care Team Providers Care Pier Hand Name Role Phone Hillary Zamora MD Primary Care Provider [phone] Orlando Warner MD Unavailable Layla Marrufo NP Unavailable Meri Mauricio OD Unavailable [phone] Matias Marcelino MD Unavailable [phone] Encounter Details Date Type Department Care Team (Late st Contact Info) Description 04/17/2024 Orders Only [facility] [address] [place], [place] [phone] Hillary Zamora MD [address] [place], [place] [phone] Type 2 diabetes mellitus with hyperglycemia, with [...] Description 02/04/2025 9:00 AM EST Office Visit [facility] [address] [place] [id number] Hillary Zamora MD [address] [place] [phone] documented as of this encounter Visit Diagnoses Diagnosis Type 2 diabetes mellitus with hyperglycemia, with long-term current use of insulin (HCC)- Primary Type 2 diabetes mellitus with hyperosmolarity, uncontrolled (HCC) Chronic atrial fibrillation (CMS/HCC) (HCC) Atrial fibrillation Dyslipidemia Other and unspecified hyperlipidemia Primary hypertension Unspecified essential hypertension Benign prostatic hyperplasia without lower urinary tract symptoms documented in this encounter Additional Health Concerns Assessment Noted Time PHQ-9 Depression Total Score: 0 05/25/19 24 10:32 AM EDT documented as of this encounter Care Teams Pier Hand Relationship Specialty Start Date End Date Hillary Zamora MD [address] [place] [address] PCP - General Family Medicine 03/07/18 Orlando Warner MD [address] [place] [address] Endocrinology 03/29/24 Layla Marrufo NP [address] [place] [address] Urology 04/05/24 Meri Mauricio OD [address] [place] [address] Optometry 04/17/24 Matias Marcelino MD [address]rd [place] [address] Cardiology 09/06/24 Teetee Zacarias FITTING ROOM MAINTENANCE MECHANIC Endocrinology 03/29/24 documented as of this encounter
[2024-12-12 08:51] LABS: Prostate Specific Antigen 0.66 ng/mL (<0.05-4.0)
== END 2024-12-12 07:29 | disposition home or self-care (01) ==
LOC: HO.LAB 07:28
PROVIDERS: PCP Family Medicine; Visit Provider Nurse Practitioner Family
DX: E11.69 Type 2 diabetes mellitus with other specified complication (principal); N52.1 Erectile dysfunction due to diseases classified elsewhere; R35.1 Nocturia; R39.14 Feeling of incomplete bladder emptying; I48.0 Paroxysmal atrial fibrillation; N39.43 Post-void dribbling; I10 Essential (primary) hypertension; Z79.01 Long term (current) use of anticoagulants; Z13.89 Encounter for screening for other disorder; Z12.5 Encounter for screening for malignant neoplasm of prostate; Z79.4 Long term (current) use of insulin; Z79.84 Long term (current) use of oral hypoglycemic drugs; Z79.899 Other long term (current) drug therapy
CPT/HCPCS: 36415; 51798; 81003; 84153; 99212

== ENCOUNTER 2024-12-12 13:07 | Outpatient (AMB) | payer OTHER, SELFPAY ==
--- NOTE | 2024-12-12 13:11 | A.OFFVIS_ITS ---
Intake Visit Reasons: follow up Intake Note: patient presents today for: follow up/PSA urology medications: tamsulosin blood thinners: none labs done 12/12/24: PSA 0.66 today's PVR: 6mls Check Grader Required: No Accompanied by: Self / Same As Patient Allergies Penicillins (PENICILLINS) Allergy (Unknown, Verified 12/12/24 14:28) UNKNOWN metformin Adverse Reaction (Unknown, Verified 12/12/24 14:28) diarrhea Medication List - Last Reconciled 12/12/24 by SHU Smith atorvastatin 80 mg PO BEDTIME blood sugar diagnostic (FreeStyle Lite Strips) As directed blood-glucose meter (FreeStyle Lite Meter kit) As directed blood-glucose sensor (Roadtrippers G7 Sensor device) As directed cholecalciferol (vitamin D3) (Vitamin D3) 50 mcg PO QAM cyclobenzaprine 5 mg PO TID PRN 7 days dabigatran etexilate (Pradaxa) 150 mg PO BID divalproex 1,000 mg PO BEDTIME dulaglutide (Trulicity) 4.5 mg (0.5 mL) subcut QWEEK ezetimibe 10 mg PO QAM insulin regular hum U-500 conc (Humulin R U-500 (Conc) Insulin Kwikpen) Breakfast 55 units, 80 units if over 200 supper 55 units, 70 units if over 200 subcutaneously 2 times a day; 30 days Jardiance (empagliflozin) 25 mg PO QAM 30 days NS lancets (FreeStyle Lancets) As directed lancets (TRUEplus Lancets) USE DIRECTED TO TEST BLOOD SUGAR SIX TIMES DAILY DIRECTED lisinopril 5 mg PO QAM melatonin 1 tab PO BEDTIME PRN omeprazole 40 mg PO QAM PRN primidone 50 mg PO BID sotalol 120 mg PO BID tamsulosin 0.4 mg PO BEDTIME 30 days HPI Comments Details: Abraham is a pleasant 59 year old male patient of Dr. Zamora. He has a past medical history of obesity, type 2 diabetes, hypertension, nonischemic cardiomyopathy, atrial flutter, hyperparathyroidism, obstructive sleep apnea, vitamin-D deficiency, dyslipidemia, and paroxysmal AFib. He presents to the office today for follow-up. In discussion with the patient today he reports to be doing and feeling well. He denies having had any bothersome urinary issues or concerns since his last office visit here. He reports compliance with Flomax as prescribed. He does report significant improvement in urinary dribbling he had been experiencing. He discusses his upcoming ablation with Dr. Vila for his atrial fibrillation. He also reports having recently followed up with his PCP for his ongoing bilateral shoulder discomfort as well as hip pain. He discusses his intentional weight loss and continues to follow-up with endocrinology. Previous work up has included a retroperitoneal ultrasound 11/28 noting bilateral kidneys with no calculi, lesions, and or hydronephrosis. The bladder is well distended and normal. Pre void bladder volume is approximately 340 mL. Postvoid bladder volume is approximately 10 mL. Prostate measures approximately 23 mL. PSAs are as follows: 10/27 0.5, 12/28 0.6, 12/29 0.7 We discussed at length the importance of managing diabetes for improvement in lower urinary tract symptoms as well as overall health and well-being. A1c 10/29 9.1. In office urinalysis results reviewed with the patient today. PVR 6 mL. He does report ED however does not wish to undergo further assessment evaluation and/or treatment options as he is not sexually active and does not find this to be an issue at this time. He otherwise offers no other issues or concerns at this time. 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 Hypertension Dyslipidemia Obesity Diabetes type 2, uncontrolled Paroxysmal A-fib Surgical History History of radiofrequency ablation procedure for cardiac arrhythmia Hx of colonoscopy Family History Father Cancer Diabetes CVD (cardiovascular disease) Mother Diabetes Social History Household Members: None Household Members Other:: Alcohol intake: never Patient Tobacco Use Status: Former Tobacco user Substance Use Type: Crack/Cocaine and Marijuana Current occupational status: disabled Current occupation: left handed Review of Systems Const Reports no additional complaints Eyes Reports no additional complaints ENT Reports no additional complaints Card Reports as per HPI Resp Reports as per HPI GI Reports as per HPI Reports as per HPI Musc Reports no additional complaints Neuro Reports no additional complaints Psych Reports no additional complaints Endo Reports as per HPI Nelson/Lymph Reports no additional complaints Aller/Immun Reports no additional complaints Physical Exam Const General: cooperative, comfortable, no acute distress, well developed, alert and awake Nutritional Appearance: overweight Orientation/consciousness: patient oriented x3 Limitations: no limitations HEENT Head: Yes normal to inspection, Yes normocephalic and Yes atraumatic Ears: hearing grossly normal bilaterally Eyes General: appearance normal, both eyes and all related structures Neck Neck: Yes normal visual inspection and Yes trachea midline Chest Chest palpation & inspection: normal inspection of the chest Resp Effort & Inspection: normal respiratory effort and able to speak in complete sentences Cardio Rate: regular rate GI Inspection: Yes normal to inspection General: Yes no CVA tenderness Back/Spine/Pelvis Back: no CVA tenderness Skin General skin exam: no rashes or lesions noted Neuro General: patient oriented x3 Extrem General: Yes normal to inspection Psych Appearance: grossly normal and well kempt Mental Status: mental status grossly normal Speech and movement: Normal speech and movement present and Clear speech present Affect: normal affect Attitude: cooperative Thought process: Normal thought process present Thought content: Normal thought content present Insight: Fair insight present (Psych) Judgement: Fair judgement present (Psych) Office Procedures Post Void Residual Post Residual Void Post Void Residual (PVR): 6 47720-Toeh Void Residual by ultrasound Results AMB Urinalysis, Automated UA Leukoctes 0 Zuleika/uL Last Edit by KARINA Frye on 12/12/24 13:26 UA Nitrite Last Edit by KARINA Frye on 12/12/24 13:26 UA Urobilinogen 0.2 mg/dL Last Edit by KARINA Frye on 12/12/24 13:2 6 UA Protein 0 mg/dL Last Edit by KARINA Frye on 12/12/24 13:26 UA pH 6.0 Last Edit by KARINA Frye on 12/12/24 13:26 UA Blood 0 Will/uL Last Edit by KARINA Frye on 12/12/24 13:26 UA Specific [place] 1.010 Last Edit by KARINA Frye on 12/12/24 13: 26 UA Ketone Last Edit by KARINA Frye on 12/12/24 13:26 UA Bilirubin 0 mg/dL Last Edit by KARINA Frye on 12/12/24 13:26 UA Glucose 1000 mg/dL Last Edit by KARINA Frye on 12/12/24 13:26 Results Reviewed Results Reviewed: Laboratory Last Values Urine pH (Auto) 6.0 12/12/24 13:25 Specific [place] (Auto) 1.010 12/12/24 13:25 Urine Protein (Auto) 0 mg/dL 12/12/24 13:25 Glucose (UA)(Auto) 1000 mg/dL 12/12/24 13:25 Urine Blood (Auto) 0 Will/uL 12/12/24 13:25 Urine Bilirubin (Auto) 0 mg/dL 12/12/24 13:25 Urine Urobilinogen (Auto) 0.2 mg/dL 12/12/24 13:25 Leukocyte Esterase (Auto) 0 Zuleika/uL 12/12/24 13:25 Assessment & Plan Assessment & Plan (1) Feeling of incomplete bladder emptying: Code(s): R39.14 - Feeling of incomplete bladder emptying Category: Medical (2) Nocturia: Code(s): R35.1 - Nocturia Category: Medical (3) Lower urinary tract symptoms: Code(s): R39.9 - Unspecified symptoms and signs involving the genitourinary system Category: Medical (4) Erectile dysfunction associated with type 2 diabetes mellitus: Code(s): E11.69 - Type 2 diabetes mellitus with other specified complication; N52.1 - Erectile dysfunction due to diseases classified elsewhere Category: Medical Plan In office urinalysis results with the patient today; as noted above. PVR 6 mL. Recent PSA results reviewed with the patient today; as noted above. He currently denies any bothersome urinary issues or concerns. He reports be happy with current voiding parameters. Continue Flomax. Will continue with surveillance monitoring. Follow-up in 6 months with PVR; or sooner with any issues, concerns, and or questions. Orders: Orders AMB Post Void Residual by ultrasound Today R39.14 - Feeling of incomplete bladder emptying Prostate Specific Antigen Today Z12.5 - Encounter for screening for malignant neoplasm of prostate AMB Urinalysis Automated Today Z13.9 - Encounter for screening, unspecified Patient Instructions: The patient had an opportunity to ask questions regarding the treatment plan. All questions were answered. Physical exam, labs, and imaging were discussed and reviewed in detail. As well as risks, benefits, and discussion of treatment choices. No major barriers to understanding were identified. The patient expressed understanding and agreement with the above treatment plan. The patient was made aware they should contact our office by phone for worsening of their current condition, the appearance of new symptoms, or with any questions or concerns. Compliance is encouraged with any medications and follow up testing that is ordered. It is a privilege to be allowed the opportunity to participate in? your urological care.? Again, if you have any questions or concerns If you have any questions or concerns please do not hesitate to contact me. The office is [phone]. This note is constructed using voice recognition software. While every effort has been made to ensure accuracy hotel operations manager errors may have been included. Yours sincerely, SHU Smith Coding Level of Care Code Est Pt Level 3 (55952) Complex EM visit Add On G2211 Diagnoses Feeling of incomplete bladder emptying R39.14 Nocturia R35.1 Lower urinary tract symptoms R39.9 Erectile dysfunction associated with type 2 diabetes mellitus E11.69; N52.1 CPT Codes Post Residual Void - PVR CPT Code: 16603-Onjc Void Residual by ultrasound ([id number])
== END 2024-12-12 13:55 | disposition home or self-care (01) ==
LOC: HO.HUSH 13:07
PROVIDERS: PCP Family Medicine; Visit Provider Nurse Practitioner Family
DX: R39.14 Feeling of incomplete bladder emptying (principal); R35.1 Nocturia; R39.9 Unspecified symptoms and signs involving the genitourinary system; E11.69 Type 2 diabetes mellitus with other specified complication; N52.1 Erectile dysfunction due to diseases classified elsewhere; Z13.9 Encounter for screening, unspecified
CPT/HCPCS: 99213; G2211

== ENCOUNTER 2024-12-25 11:47 | Outpatient (AMB) | payer OTHER, SELFPAY ==
--- NOTE | 2024-12-25 13:38 | A.OFFVIS_ITS ---
Intake Intake Visit Reasons: 60 min Paster Hat Lining Required: No Accompanied by: Self / Same As Patient Allergies Penicillins (PENICILLINS) Allergy (Unknown, Verified 12/12/24 14:28) UNKNOWN metformin Adverse Reaction (Unknown, Verified 12/12/24 14:28) diarrhea HPI Comprehensive Diabetes Asmnt Most Recent Diabetes Results: 2 Microalb/Creat Ratio TNP 12/03/24 Cholesterol, (<200) 97 mg/dL 12/03/24 HDL Cholesterol, (>40) 32 mg/dL L 12/03/24 Triglycerides, (<150) 80 mg/dL 12/03/24 Creatinine, (0.5-1.4) 0.68 mg/dL 12/03/24 BUN, (9-16) 14 mg/dL 12/03/24 Sodium, (135-145) 140 mmol/L 12/03/24 Potassium, (3.3-5.1) 4.6 mmol/L 12/03/24 Chloride, (96-108) 105 mmol/L 12/03/24 Carbon Dioxide, (22-29) 30 mmol/L H 12/03/24 Calcium, (8.4-10.2) 9.7 mg/dL 12/03/24 AST, (5-37) 32 U/L 12/03/24 ALT, (0-40) 35 U/L 12/03/24 Total Protein, (6.5-8.0) 6.9 g/dL 12/03/24 Albumin, (3.5-5.0) 4.4 g/dL 12/03/24 [facility] Medical History Pre-operative cardiovascular examination Morbid obesity Type 2 diabetes mellitus with unspecified complications Essential hypertension Nonischemic cardiomyopathy Typical atrial flutter Hyperparathyroidism CLAUDIA (obstructive sleep apnea) Vitamin D deficiency Diabetic nephropathy associated with type 2 diabetes mellitus 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 Hypertension Dyslipidemia Obesity Diabetes type 2, uncontrolled Paroxysmal A-fib Surgical History History of radiofrequency ablation procedure for cardiac arrhythmia Hx of colonoscopy Family History Father Cancer Diabetes CVD (cardiovascular disease) Mother Diabetes Social History Household Members: None Household Members Other:: Alcohol intake: never Patient Tobacco Use Status: Former Tobacco user Substance Use Type: Crack/Cocaine and Marijuana Current occupational status: disabled Current occupation: left handed Assessment & Plan Assessment & Plan (1) Diabetes type 2, uncontrolled: Code(s): E11.65 - Type 2 diabetes mellitus with hyperglycemia Qualifiers: Glycemic state: with hyperglycemia Qualified Code(s): E11.65 - Type 2 diabetes mellitus with hyperglycemia Plan: Personal Continuous Glucose Monitor: Patients CGM information reviewed, Pt uses Dexcom G7 with phone ronny Patient is taking Humulin U 500 50 units in the morning 50 units before supper if his glucose level is greater than 180 mg/dL Patient also reports occasionally if his glucose is high mid day he will take another 50 units Patient admits that when his glucose level is below 150 mg/dL he will skip insulin dose. Reviewed with patient insulin plan ordered by Dr. Warner Insulin plan reads: Humulin U 500 55 units with breakfast, if glucose is greater than 200 mg/dL 80 units 55 units with supper, if glucose is greater than 200 mg/dL 70 units Insulin plan given to patient At today's visit we discussed insulin pump therapy, at this time patient declined to pursue insulin pump therapy Also called [facility] to check on why they are asking patient to pay $38.00 for they will should about next order of sensors. Rep from [employer] stated that patient's insurance did not cover full amount of last order. Recommended to patient to contact insurance company regarding this issue. Patient given 1 sample Dexcom G7 sensor, to give him time to work with insurance and [employer] to get his next order Reviewed with patient how to treat hypoglycemia with rule of 15s Patient able to insert sensor independently at home without issue.? Portions of this note were created using voice recognition software, please excuse any words or phrases that may have been misinterpreted. Patient Instructions: Breakfast 55 units, 80 units if over 200 supper 55 units, 70 units if over 200 subcutaneously 2 times a day; Contact provider or switchboard mechanic if having episodes of hypoglycemia Coding Level of Care Code Est Pt Level 1 (87934) Diagnoses Uncontrolled type 2 diabetes mellitus with hyperglycemia E11.65 Glycemic state: with hyperglycemia
--- OUTSIDE RECORDS SUMMARY | 2024-12-25 15:15 | XMS_ITS | Encounter Summary ---
Author Organization [facility] Address [address] [place] [address] Care Team Providers Care Tractor Trailer Mechanic Name Role Phone Hillary Zamora MD Primary Care Provider + [phone] Orlando Warner MD Unavailable [phone] Layla Marrufo NP Unavailable Meri Mauricio OD Unavailable [phone] Matias Marcelino MD Unavailable [phone] Encounter Details Date Type Department Care Team (Latest Contact Info) Description 12/23/2020 Abstract [facility] CONVERSIONS Dental, Provider, DDS Social History Tobacco [...] Description 02/04/2025 9:00 AM EST Office Visit [facility] [address] [place], [place] [phone] Hillary Zamora MD [address] [place], [place] [phone] documented as of this encounter Visit Diagnoses Not on filedocumented in this encounter Care Teams Tractor Trailer Mechanic Relationship Specialty Start Date End Date Hillary Zamora MD [address] [place] [address] PCP - General Family Medicine 03/07/18 Orlando Warner MD [address] [place] [address] Endocrinology 03/29/24 Layla Marrufo NP [address] [place] [address] Urology 04/05/24 Meri Mauricio OD [address] [place] [address] Optometry 04/17/24 Matias Marcelino MD [address] [place] [address] Cardiology 09/06/24 Teetee Zacarias AIRFIELD MANAGER Endocrinology 03/29/24 documented as of this encounter
--- OUTSIDE RECORDS SUMMARY | 2024-12-25 15:15 | XMS_ITS | Clinical Summary ---
Author Organization [employer] Address [address] [place] [address] Care Team Providers Care Sponge Hooker Name Role Phone Hillary Zamora MD Primary Care Provider [phone] Orlando Warner MD Unavailable Layla Marrufo NP [...] hyperglycemia, with long-term current use of insulin ([facility]) Take by mouth. A ctive sotalol (Betapace) 80 MG tabletIndicatio ns:Chronic atrial fibrillation (CMS/HCC) ([facility]) Take by mouth. Active ezetimibe (Zetia) 10 MG tabletIndicatio ns:Dyslipidemia Take 10 mg by mouth Once per day. Active lisinopril 5 MG tabletIndicatio ns:Primary hypertension Take by mouth Once per day. Active Tirzepatide (Mounjaro) 2.5 MG/0.5ML solution auto-injectorIn dications:Type 2 diabetes mellitus with hyperglycemia, with long-term current use of insulin ([facility]) Inject under the skin. Active tamsulosin [...] 150 MG capsuleIndicati ons:Chronic atrial fibrillation (CMS/HCC) ([facility]) TAKE 1 CAPSULE BY MOUTH TWICE DAILY IN THE MORNING AND IN THE EVENING 60 capsule 5 025 Active FREESTYLE LITE test stripIndication s:Type 2 diabetes mellitus with hyperglycemia, with long-term current use of insulin ([facility]) TEST BLOOD SUGAR SIX TIMES DAILY [...] be different from the original. [facility] Ericson Mobile Phone Salesperson: Lizz, member services number [phone], provider services line, , option 4 Internal Specialist [facility] Problem Noted Date Diagnosed Date Cord compression [...] procedure -he is scheduled to see the steward/stewardess chief cargo vessel September 07, 2023 -he is scheduled for [...] procedure -he is scheduled to see the steward/stewardess chief cargo vessel September 07, 2023 -he is scheduled for [...] procedure -he is scheduled to see the steward/stewardess chief cargo vessel September 07, 2023 -he is scheduled for [...] Urinary hesitancy 09/02/2023 Overview (12/03/2024): -seen by [facility] 10/27/23 -tamulsosin 0.4 started 10/27/23 and [...] rate control. -He was referred back to installation specialist 01/2021 -Pt seen cardiology 10/2021 with [...] discontinued. -Followed by Dr. Matias Marcelino of [facility], note from 09/04/24 reviewed, was in atrial fibrillation in office referred to EP again for ablation Dr. Felton -Saw Evonne Gillespie, ADELIEN 01/21/2023 -continue Sotolol 120 mg 2 tablets [...] rate control. -He was referred back to installation specialist 01/2021 -Pt seen cardiology 10/2021 with [...] discontinued. -Followed by Dr. Matias Marcelino of [facility], note from 09/04/24 reviewed, was [...] rate control. -He was referred back to installation specialist 01/2021 -Pt seen cardiology 10/2021 with [...] discontinued. -Followed by Dr. Matias Marcelino of [facility] -Saw Evonne Gillespie NP 01/21/2023 [...] rate control. -He was referred back to installation specialist 01/2021 -Pt seen cardiology 10/2021 with [...] discontinued. -Followed by Dr. Matias Marcelino of [facility] -Saw Evonne Gillespie NP 01/21/2023 [...] rate control. -He was referred back to installation specialist 01/2021 -Pt seen cardiology 10/2021 with [...] discontinued. -Followed by Dr. Matias Marcelino of [facility] -Saw Evonne Gillespie NP 01/21/2023 [...] been asymptomatic. He was referred back to installation specialist 01/2021 He is awaiting a new [...] [place] last seen 06/22/2022 -dental home is [facility] proxy filed 12/03/24 Assessment & Plan (12/03/2024 10:01 AM EDT): -next comprehensive annual evaluation due after 12/03/25 -eye care facilitated by James Vernon last seen 06/22/2022 -dental home is [facility] [facility] proxy filed 12/03/24 Assessment & Plan (09/02/2023 10:25 AM EDT): -next physical exam due after 01/25/2024 -eye care facilitated by [facility] last seen 06/22/2022 -dental [...] ,diastolic dysfunction indeterminate -continue to f with steward/stewardess chief cargo vessel Cardiomyopathy 03/29/2022 Overview (12/03/2024): Possibly due to [...] Depressive disorder 01/10/2012 Type 2 diabetes mellitus wit h diabetic polyneuropathy, with long-term current use of insulin 01/10/2012 Overview (12/03/2024): Diabetes is not controlled. Followed by Mobile Application Tester, Dr. Warner, note from 10/16/24 reviewed -has Dexacom GCM Lab Results Component Value Date HGBA1C 8.4 (A) 12/03/2024 HGBA1C 9.3 (A) 07/18/2024 HGBA1C 9.7 (A) 05/25/2023 - Lab Results Component Value Date CREATININE 0.79 11/12/2024 EGFR >60 11/12/2024 MICROALBCREU TNP 12/07/2023 MICROALBCREU 12.7 10/14/2022 LDLCHOLCAL 77 10/14/2022 -Orlin/Arb: lisinopril 5mg -Statin therapy: atorvastatin 80mg -Diabetic eye exam: 03/21/24 with [facility] -Continue lifestyle modifications -Followed by Dr. Warner attorney recruiter -continue Jardiance 25 daily -per Endo 02/06/25 Humulin U500 breakfast 55 units take 80 units if over 200 Supper 55 units take 70 if over 200 -Change Trulicity to Mounjaro and back to Trulicity 4.5 weekly on 09/2024 -Continue Jardiance -ordered repeat routine labs 12/03/24 Assessment & Plan (12/03/2024 10:01 AM EDT): Diabetes is not controlled. Followed by Mobile Application Tester, Dr. Warner, note from 10/16/24 reviewed -has Dexacom GCM Lab Results Component Value Date HGBA1C 8.4 (A) 12/03/2024 HGBA1C 9.3 (A) 07/18/2024 HGBA1C 9.7 (A) 05/25/2023 - Lab Results Component Value Date CREATININE 0.79 11/12/2024 EGFR >60 11/12/2024 MICROALBCREU TNP 12/07/2023 MICROALBCREU 12.7 10/14/2022 LDLCHOLCAL 77 10/14/2022 -Orlin/Arb: lisinopril 5mg -Statin therapy: atorvastatin 80mg -Diabetic eye exam: 03/21/24 with [facility] -Continue lifestyle modifications -Followed by Dr. Warner attorney recruiter -continue Jardiance 25 daily -per Endo 02/06/25 [...] EDT): Diabetes is not controlled. Followed by Mobile Application Tester, Dr. Warner -has Dexacom GCM Lab Results Component Value Date HGBA1C 9.7 (A) 05/25/2023 HGBA1C 9.1 (A) 01/24/2023 HGBA1C 8.9 (A) 08/18/2022 - Lab Results Component Value Date CREATININE 0.81 10/14/2022 EGFR >60 10/14/2022 MICROALBCREU 12.7 10/14/2022 MICROALBCREU TNP 04/06/2022 LDLCHOLCAL 77 10/14/2022 -Orlin/Arb: lisinopril 5mg -Statin therapy: atorvastatin 80mg -Diabetic eye exam: at [facility] with Gopal Southampton 06/22/2022 -Diabetic foot exam: -Continue lifestyle modifications -Continue current medications -Followed by Dr. Warner attorney recruiter -continue Trulicity 4.5mg weekly -continue Jardiance 25 daily -continue humulin R U 500 0 units tid Assessment & Plan (05/25/2023 10:47 AM EDT): Diabetes is not controlled. Followed by Mobile Application Tester, Dr. Warner -has Dexacom GCM Lab Results Component Value Date HGBA1C 9.1 (A) 01/24/2023 HGBA1C 8.9 (A) 08/18/2022 Lab Results Component Value Date MICROALBUR 13.0 10/14/2022 CREATININE 0.81 10/14/2022 -Seen by endocrinology on 10/12/2022. No changes made. -Changes: None -Orlin/Arb: lisinopril 5mg -Statin therapy: atorvastatin 80mg -Diabetic eye exam: at [facility] with Gopal Madhavi 06/22/2022 -Diabetic foot exam: -Continue lifestyle modifications -Continue current medications -Followed by Dr. Warner attorney recruiter -continue Trulicity 4.5mg weekly -continue Jardiance 25 daily -Continue humulin R U 500 0 units tid Assessment & Plan (01/24/2023 12:08 PM EST): Diabetes is not controlled. Followed by Mobile Application Tester, Dr. Warner -has Dexacom GCM Lab Results Component Value Date HGBA1C 9.1 (A) 01/24/2023 HGBA1C 8.9 (A) 08/18/2022 Lab Results Component Value Date MICROALBUR 13.0 10/14/2022 CREATININE 0.81 10/14/2022 -Seen by endocrinology on 10/12/2022. No changes made. -Changes: None -Orlin/Arb: lisinopril 5mg -Statin therapy: atorvastatin 80mg -Diabetic eye exam: at [facility] with Gopal Southampton 06/22/2022 -Diabetic foot exam: -Continue lifestyle modifications -Continue current medications -Followed by Dr. Warner attorney recruiter -continue Trulicity 4.5mg weekly -continue Jardiance 25 [...] for tx -Will try to refer in [facility] 01/24/2023 Assessment & Plan (12/03/2024 10:01 AM [...] for tx -Will try to refer in [facility] 01/24/2023 Assessment & Plan (01/24/2023 11:12 AM EST): Does not tolerate CPAP-pt willing to be evaluated again by sleep med and check how can improve use of machine ,explained importance to pt for tx -Will try to refer in [facility] 01/24/2023 Assessment & Plan (08/18/2022 12:01 [...] hb1ac is 8.9-per pt improving following w attorney recruiter -last echo in chart 12/2021: ef 50-60%, [...] ablation and after it, clearance from his steward/stewardess chief cargo vessel prior to have eye surgery --I will have this note fax to his eye doctor today -if pt is cleared from his steward/stewardess chief cargo vessel then pt will need to hold on pradaxa the morning of procedure unless indicated differently by his steward/stewardess chief cargo vessel,hold as well PO meds in am of procedure and to use half insuline basal insuline at night prior surgery. Also pt will need to check with his steward/stewardess chief cargo vessel if prior eye surgery will need to hold digoxin and diltiazem if meds are going to be continued after ablation. -I called today as well to his steward/stewardess chief cargo vessel at # [phone] at [facility] and left my phone info to get a call back to discuss with steward/stewardess chief cargo vessel, I also inform pt to discuss w his steward/stewardess chief cargo vessel at his upcoming visit in 2 days [...] Encounters Date Type Department Care Team Description 12/19/2024 Telephone [facility] [address] [place] [address] Hillary Zamora MD 12/12/2024 Orders Only GENERIC EXTERNAL DATA DEPARTMENT Provider, Generic External Data 12/03/2024 9:00 AM EDT Office Visit [facility] [address] [place] [address] Hillary Zamora MD Obstructive sleep apnea syndrome [...] health status; Morbid obesity (CMS/HCC) 12/03/2024 Telephone [facility] [address] [place] [phone] Hillary Zamora MD [facility] 12/03/2024 Travel 11/30/2024 Telephone [facility] [address] [place] [phone] Miguel Sheri CANDELARIA 11/12/2024 Orders Only GENERIC EXTERNAL DATA DEPARTMENT Provider, Generic External Data 10/31/2024 Refill [facility] [address] [place] [phone] Hillary Zamora MD Type 2 diabetes mellitus with hyperosmolarity, uncontrolled (CMS/[facility]); Dyslipidemia 10/16/2024 Orders Only GENERIC EXTERNAL DATA DEPARTMENT Provider, [facility] External Data 10/10/[address] [address] Hillary Zamora MD Type 2 diabetes mellitus with hyperglycemia, with long-term current use of insulin ([facility]) 10/01/2024 Telephone [facility] [address] [place] [phone] Hillary Zamora MD 09/28/[address] [address] Hillary Zamora MD chartprep 09/27/[address] [address] Hillary Zamora MD Appointment Confirmation (I book the appt on October 01 at 1:45pm.) 09/27/2024 Travel 09/27/2024 Orders Only GENERIC EXTERNAL DATA DEPARTMENT Provider, Generic External Data 09/26/2024 Patient Outreach [address] [address] Hillary Zamora MD Pre-visit Planning (Pre-visit planning [...] Description 02/04/2025 9:00 AM EST Office Visit [facility] [address] [place] [phone] Hillary Zamora MD [address] [place] [address] Health Maintenance Due Date Last Done Comments [...] Procedure Name Priority Date/Time Associated Diagnosis Comments PSA, TOTAL Routine 12/12/2024 7:37 AM EDT CEA Routine 12/03/2024 9:41 AM EDT Unintentional [...] ([place] DPH) Routine 10/14/2022 11:04 AM EDT DIABETES EYE EXAM Routine 06/22/2022 from Last 3 Months or Most Recently Relevant to Health Maintenance Results * PSA,Total (12/12/2024 7:37 AM EDT) Only the most recent of2 resultswithin the time period is included. Prostate Specific Antigen 0.66 <0.05 - 4.0 ng/mL [facility] Comment:PSA methodology: Shashank Thakur i ChemiluminescentMicroparticle Immunoassay (CMIA) 12/12/2024 7:37 AM EDT 12/12/2024 7:37 AM EDT us Generic External Data Provider LAB BLOOD ORDERAB LES Final Result [facility] [address] [place] [phone] * Vitamin B12 (Cobalamin) and Folate Panel, Serum (12/03/2024 9:41 AM EDT) Vitamin B12 429 200 - 900 pg/mL [facility] Comment:NORMAL 200-900 PG/ML INDETERMINATE 160-199 PG/ML DEFICIENT < 160 PG/ML Folate 10.5 > or = 4.0 ng/mL [facility] Comment:Reference Values:> o r = [...] BLOOD ORDERABLES Final Result Performing Organization Address [facility]/ZIP Co de Phone Number [facility] [address] [place] [phone] * TSH with Reflex to Free T4 (12/03/2024 9:41 AM EDT) TSH reflex Free T4 1.62 0.32 - 4.0 uIU/mL [facility] Blood Venous blood specimen / Unknown 12/03/2024 9:41 AM EDT 12/03/2024 11:13 AM EDT Hillary Zamora MD LAB BLOOD ORDERABLES Final Result Performing Organization Address [facility] Co de Phone Number [facility] [address] [place] [phone] * Albumin, Random Urine W/Creatinine (12/03/2024 9:41 AM EDT) Creatinine, Urine 49.28 mg/dL [facility] Microalbumin Urine <5.0 mg/L [facility] Microalbum Creatinine Ratio Ur TNP <30 ug/mg cr [facility] Comment:Unable to calculate albumin/creatinine ratio due to lowmicroalbumin or creatinine result. Urine 12/03/2024 9:41 AM EDT 12/03/2024 11:02 AM EDT Hillary Zamora MD LAB URINE ORDERABLES Final Result Performing Organization Address [facility]/ZIP Co de Phone Number [facility] [address] [place] [phone] * CBC auto differential (12/03/2024 9:41 AM EDT) Only the most recent of2 resultswithin the time period is included. White Blood Count 5.3 4.8 - 10.8 X10*3/uL [facility] Red Blood Count 4.80 4.60 - 5.80 X10*6/uL [facility] Hemoglobin 15.5 14.0 - 18.0 g/dl [facility] Hematocrit 46.0 42.0 - 52.0 % [facility] Mean Corpuscular Volume 95.8 80.0 - 98.0 fL [facility] Mean Corpuscular Hemoglobin 32.3 27.0 - 33.0 pg [facility] Mean Corpuscular HGB Conc 33.7 31.0 - 36.0 g/dl [facility] Red Cell Distribution Width 13.2 11.0 - 16.0 % [facility] Platelet Count 209 160 - 400 X10*3/uL [facility] Mean Platelet Volume 10.0 9.4 - 12.4 fL [facility] Neutrophils Percent Auto 54.8 45 - 73 % [facility] Imm Gran Pct Auto 0.4 0.0 - 0.4 % [facility] Lymphocytes Percent Auto 34.3 20 - 40 % [facility] Monocytes Percent Auto 7.9 2 - 11 % [facility] Eosinophils Percent Auto 1.7 0 - 4 % [facility] Basophils Percent Auto 0.9 0 - 2 % [facility] NRBC Pct Auto 0.0 0.0 - 0.2 /100WBC [facility] Neutrophils Absolute Auto 2.9 2.0 - 8.3 x10*3/uL [facility] Imm Gran Abs Auto 0.02 0.00 - 0.03 X10*3/uL [facility] Lymphocytes Absolute Auto 1.8 1.2 - 4.9 X10*3/uL [facility] Monocytes Absolute Auto 0.4 0.1 - 1.2 X10*3/uL [facility] Eosinophils Absolute Auto 0.1 0.0 - 0.4 X10*3/uL [facility] Basophils Absolute Auto 0.1 0.0 - 0.2 X10*3/uL [facility] NRBC Abs Auto 0.000 0.0 - 0.012 X10*3/uL [facility] Blood Venous blood specimen / Unknown 12/03/2024 9:41 AM EDT 12/03/2024 11:13 AM EDT Hillary Zamora MD LAB BLOOD ORDERABLES Final Result Performing Organization Address City/[facility]/ZIP Co de Phone Number [facility] [address] [place] [phone] * Iron And Total Iron Binding Capacity (12/03/2024 9:41 AM EDT) Iron 106 45 - 160 mcg/dL [facility] Total Iron Binding Capacity 280 228 - 428 mcg/dL [facility] Percent Iron Saturation 38 15 - 50 % [facility] Unsaturated Iron Binding 174 ug/dL [facility] Blood Venous blood specimen / Unknown 12/03/2024 9:41 AM EDT 12/03/2024 11:13 AM EDT Hillary Zamora MD LAB BLOOD ORDERABLES Final Result Performing Organization Address [facility]/ZIP Co de Phone Number [facility] [address] [place] [phone] * Ferritin (12/03/2024 9:41 AM EDT) Ferritin 148 20 - 250 ng/mL [facility] Blood Venous blood specimen / Unknown 12/03/2024 9:41 AM EDT 12/03/2024 11:13 AM EDT Hillary Zamora MD LAB BLOOD ORDERABLES Final Result Performing Organization Address [facility] Co de Phone Number [facility] [address] [place] [phone] * CEA (12/03/2024 9:41 AM EDT) Carcinoembryonic Antigen <1.73 ng/mL [facility] Comment:CEA Reference Range: 93.4% Non-Smokers [...] BLOOD ORDERABLES Final Result Performing Organization Address [facility] de Phone Number [facility] [address] [place] [phone] * Hepatic Function Panel (12/03/2024 9:41 AM EDT) Bilirubin, Total 0.5 0.0 - 1.0 mg/dL [facility] Bilirubin, Direct 0.2 0.0 - 0.5 mg/dL [facility] Aspartate Amino Transferase 32 5 - 37 U/L [facility] Alanine Aminotransferase 35 0 - 40 U/L [facility] Total Protein 6.9 6.5 - 8.0 g/dL [facility] Albumin Level 4.4 3.5 - 5.0 g/dL [facility] Alkaline Phosphatase 85 39 - 117 U/L [facility] Blood Venous blood specimen / Unknown 12/03/2024 9:41 AM EDT 12/03/2024 11:13 AM EDT Hillary Zamora MD LAB BLOOD ORDERABLES Final Result Performing Organization Address [facility] Number [facility] [address] [place] [phone] * (ABNORMAL) Lipid Panel, Standard (12/03/2024 9:41 AM EDT) Triglycerides 80 <150 mg/dL [facility] Comment:Desirable Triglyceri de: less than 150 mg/dLBorderline High Triglyceride 150-199 mg/dLHigh Triglyceride: 200-499 mg/dLVery High Triglyceride: greater than or equal to 5OO mg/dL Cholesterol 97 <200 mg/dL [facility] Comment:Desirable Cholestero l: less than 200 mg/dLBorderline High Cholesterol: 200-239 mg/dLHigh Cholesterol: greater than 239 mg/dL LDL Cholesterol Calculated 49 <100 mg/dL [facility] Comment:Desirable LDL: less than 100 mg/dLNear Optimal/Above Optimal LDL: 110- 129 mg/dLBorderline High LDL: 130-159 mg/dLHigh LDL: 160-189 mg/dLVery High LDL: greater than or equal to 190 mg/dL HDL Cholesterol 32(L) >40 mg/dL [facility] Comment:Desirable HDL: great er than 40 mg/dL Note: This HDL assay may give artificially low results in patients with liver disease. Blood Venous blood specimen / Unknown 12/03/2024 9:41 AM EDT 12/03/2024 11:13 AM EDT us Hillary Zamora MD LAB BLOOD ORDERABLES Final Result [facility] [address] [place] [phone] * (ABNORMAL) Basic Metabolic Panel (12/03/2024 9:41 AM EDT) Sodium 140 135 - 145 mmol/L [facility] Potassium 4.6 3.3 - 5.1 mmol/L [facility] Chloride 105 96 - 108 mmol/L [facility] Carbon Dioxide 30(H) 22 - 29 mmol/L [facility] Anion Gap 10(L) 12 - 20 [facility] Urea Nitrogen (BUN) 14 9 - 16 mg/dL [facility] Creatinine, Serum 0.68 0.5 - 1.4 mg/dL [facility] Estimated Glomerular Filt Rate >60 [facility] Comment:Chronic Kidney Disea se: Estimated GFR < 60 mL/min/1.22s5Riwmao Kidney Disease: Estimated GFR < 15 mL/min/1.73m2 Glucose 210(H) 60 - 115 mg/dL [facility] Calcium 9.7 8.4 - 10.2 mg/dL [facility] Blood Venous blood specimen / Unknown 12/03/2024 9:41 AM EDT 12/03/2024 11:13 AM EDT Hillary Zamora MD LAB BLOOD ORDERABLES Final Result [facility] [address] [place] [phone] * (ABNORMAL) POCT glucose manually resulted (12/03/2024 9:00 AM EDT) Glucose Blood, POC 278(A) 60 - 200 mg/dL [employer] Lot # [id number] Lot# Expiration Date 863,094 Blood Capillary blood specimen / Unknown 12/03/2024 9:00 AM EDT Hillary Zamora MD POINT OF CARE TEST ENTER/E DIT ORDERABLES Final Result * (ABNORMAL) POCT glycosylated hemoglobin (Hgb A1c) (12/03/2024 8:58 AM EDT) Hemoglobin A1C 8.4(A) 4.0 - 5.7 % [employer] Lot # [id number] Lot# Expiration Date ,[id number] Blood Capillary blood specimen / Unknown 12/03/2024 8:58 AM EDT Hillary Zamora MD POINT OF CARE TEST ENTER/E DIT ORDERABLES Edited Result - Final * XR Ribs 3 Views Right with Chest 1 View (11/12/2024 1:30 PM EDT) Anatomical Region Laterality Modality Radiographic Claire ging 11/12/2024 1:30 PM EDT Narrative 11/12/2024 1:49 PM EDT [address] [address] XRay Report Signed Patient: Abraham Hoover MR#: [id number] : 1965 Acct:[id number] Age/Sex: 59 / M ADM Date: 11/12/24 Loc: HO.ED Attending Dr: Ordering Physician: Juan Carlos Patricio DO Date of Service: 11/12/24 Procedure(s): XR ribs RT min 3V w CXR1V Accession Number(s): [id number] cc: Hillary Zamora MD; Juan Carlos Patricio [...] 11/12/24 1347 DD/ 1330 TD/TT: 11/12/24 1339 Larder Cook: Procedure Note Donotuseinterpreter, Image - 11/12/[address] [address] XRay Report Signed Patient: Trace HooverR#: [id number] : 1965Acct:[id number] Age/Sex: 59 / MADM Date: 11/12/24 Loc: HO.ED Attending Dr: Ordering Physician: Juan Carlos Patricio DO Date of Service: 11/12/24 Procedure(s): XR ribs RT min 3V w CXR1V Accession Number(s): [id number] cc: Hillary Zamora MD; Juan Carlos Patricio [...] 11/12/24 1347 DD/ 1330 TD/TT: 11/12/24 1339 [place] Cook: [facility] External Provider IMG XR PROCEDURES Edited Result - Final * CT Cervical Spine w/o Contrast (11/12/2024 12:56 PM EDT) Anatomical Region Laterality Modality Spine, C-spine Computed Tomogra phy 11/12/2024 12:5 6 PM EDT Narrative 11/12/2024 1:30 PM EDT [place] [address] [address] Scan Report Signed Patient: Abraham Hoover MR#: [id number] : 1965 Acct:[id number] Age/Sex: 59 / M ADM Date: 11/12/24 Loc: HO.ED Attending Dr: Ordering Physician: Farhana Silverman Date of Service: 11/12/24 Procedure(s): CT cervical spine wo IV con Accession Number(s): [id number] cc: Hillary Zamora MD; Farhana Silverman Report Number: [id number]: Total DLP = 531.00 mGy-cm Reason for [...] 11/12/24 1327 DD/ 1256 TD/TT: 11/12/24 1305 [place] Cook: Procedure Note Donosmaninterpreter, Image - 11/12/[address] [address] [address] Scan Report Signed Patient: Vicente AnsariOtilioMR#: [id number] : 1965Acct:[id number] Age/Sex: 59 / MADM Date: 11/12/24 Loc: HO.ED Attending Dr: Ordering Physician: Farhana Silverman Date of Service: 11/12/24 Procedure(s): CT cervical spine wo IV con Accession Number(s): [id number] cc: Hillary Zamora MD; Farhana Silverman Report Number: [id number]: Total DLP = 531.00 mGy-cm Reason for [...] 11/12/24 1327 DD/ 1256 TD/TT: 11/12/24 1305 [place] Cook: [facility] External Provider IMG CT PROCEDURES Edited Result - Final * CT Head w/o Contrast (11/12/2024 12:56 PM EDT) Anatomical Region Laterality Modality Head, Neck Computed Tomogra phy 11/12/2024 12:5 6 PM EDT Narrative 11/12/2024 1:28 PM EDT [place] [address] [address] Scan Report Signed Patient: Abraham Hoover MR#: [id number] : 1965 Acct:[id number] Age/Sex: 59 / M ADM Date: 11/12/24 Loc: .ED Attending Dr: Ordering Physician: Farhana Silverman Date of Service: 11/12/24 Procedure(s): CT head/brain wo IV con Accession Number(s): [id number] cc: Hillary Zamora MD; Farhana Silverman Report Number: [id number]: Total DLP = 732.00 mGy-cm Reason for [...] 11/12/24 1326 DD/ 1256 TD/TT: 11/12/24 1305 [place] Cook: Procedure Note Donotuseinterpreter, Image - 11/12/[address] [place] [address] [address] Scan Report Signed Patient: Vicente AnsariOtilioMR#: [id number] : 1965Acct:[id number] Age/Sex: 59 / MADM Date: 11/12/24 Loc: HO.ED Attending Dr: Ordering Physician: Farhana Silverman Date of Service: 11/12/24 Procedure(s): CT head/brain wo IV con Accession Number(s): [id number] cc: Hillary Zamora MD; Farhana Silverman Report Number: [id number]: Total DLP = 732.00 mGy-cm Reason for [...] 11/12/24 1326 DD/ 1256 TD/TT: 11/12/24 1305 [place] Cook: [facility] External Provider IMG CT PROCEDURES Edited Result - Final * (ABNORMAL) Prothrombin Time-INR (11/12/2024 12:30 PM EDT) Prothrombin Time 14.6(H) 10.9 - 12.4 SEC [facility] INTERNATIONAL NORM RATIO 1.3(H) 0.9 - 1.1 [facility] Comment:INTERNATIONAL NORMAL IZED RATIO (INR) [...] Provider LAB BLOOD ORDERAB LES Final Result [facility] [address] [place] [address] [phone] * (ABNORMAL) Comprehensive Metabolic Panel (11/12/2024 12:30 PM EDT) Sodium 141 135 - 145 mmol/L [facility] Potassium 4.6 3.3 - 5.1 mmol/L [facility] Chloride 108 96 - 108 mmol/L [facility] Carbon Dioxide 25 22 - 29 mmol/L [facility] Anion Gap 13 12 - 20 [facility] Urea Nitrogen (BUN) 11 9 - 16 mg/dL [facility] Creatinine, Serum 0.79 0.5 - 1.4 mg/dL [facility] Creatinine Clr Calc Pharmacy 107.7 [facility] Comment:eGFR (calculated fro m the MDRD study equation) and eCrCl(calculated from the Cockcroft-Gault equation) are based ondifferent parameters and may not yield comparable results.If eCrCl result is absurd, please check patient'sheight/weight. Estimated Glomerular Filt Rate >60 [facility] Comment:Chronic Kidney Disea se: Estimated GFR < 60 mL/min/1.56d3Vekexg Kidney Disease: Estimated GFR < 15 mL/min/1.73m2 Glucose 173(H) 60 - 115 mg/dL [facility] Calcium 9.2 8.4 - 10.2 mg/dL [facility] Bilirubin, Total 0.7 0.0 - 1.0 mg/dL [facility] Aspartate Amino Transferase 27 5 - 37 U/L [facility] Alanine Aminotransferase 29 0 - 40 U/L [facility] Total Protein 6.5 6.5 - 8.0 g/dL [facility] Albumin Level 4.2 3.5 - 5.0 g/dL [facility] Alkaline Phosphatase 60 39 - 117 U/L [facility] 11/12/2024 12:3 0 PM EDT 11/12/2024 12:32 PM EDT Generic External Data Provider LAB BLOOD ORDERAB LES Final Result Performing Organization Address [facility]/ZIP Co de Phone Number [facility] [address] [place] [address] [phone] * (ABNORMAL) Glucose, Whole Blood (10/16/2024 9:14 AM EDT) Glucose, Whole Blood 221(H) 60 - 115 mg/dL [facility] Comment:METER #: [id number] Testing performed in the Endocrinology Department [address] , [address], [facility]. 10/16/2024 9:14 AM EDT 10/16/2024 9:20 AM EDT Generic External Data Provider LAB BLOOD ORDERAB LES Final Result Performing Organization Address City/[facility]/ZIP Co de Phone Number [facility] [address] [place] [address] [phone] * (ABNORMAL) Cologuard?? colon cancer screening (02/07/2023 7:30 AM EST) Cologuard Result Positive( A) Negative 02/15/2023 9:47 AM EST [employer] (CLIA #:[id number]) Comment: POSITIVE TEST RESULT. A positive Cologuard [...] (Fabiano Ross al, N Engl J Med 2014;370(14):5060-7066.) Cologuard may produce a false negative or false positive result (no colorectal cancer or precancerous polyp present at colonoscopy follow up). A negative Cologuard test result does not guarantee the absence of CRC or advanced adenoma (pre-cancer). The current Cologuard screening interval is every 3 years. ([place] [employer] and U.S. Multi-Society Task Force). Cologuard performance data in a 10,000 patient pivotal study using colonoscopy as the reference method can be accessed at the following location: [email or web address]. Additional description of the Cologuard test process, warnings and precautions can be found at [email or web address]. Stool specimen (specimen) 02/07/2023 7:30 AM EST 02/08/2023 3:13 PM EST Hillray Zamora MD LAB MOLECULAR DIAGNOSTICS ORDERABLES Final Result [employer] (CLIA #:[id number]) [place] [place] [address], [place] [phone] * Hepatitis C Antibody Reflex (10/14/2022 11:04 AM EDT) Hepatitis C Antibody Nonreactive Nonreactive [facility] Comment:Antibodies to HCV no t detected; does not exclude early acuteHCV infection. 10/14/2022 11:0 4 AM EDT 10/14/2022 12:57 PM EDT Hillary Zamora MD LAB BLOOD ORDERABLES Final Result Performing Organization Address [facility] Co de Phone Number [facility] [address] [place] [phone] * HIV Ab/Ag ([facility]) (10/14/2022 11:04 AM EDT) Pathologist [facility] HIV AB/AG Nonreactive Nonreactive [facility] Comment:HIV-1 p24 Ag and/or HIV-1/HIV-2 Ab not detected.A test result that is nonreactive does not exclude thepossibility of exposure to or infection with HIV-1 and/orHIV-2. Nonreactive results in this assay for individualswith prior exposure to HIV-1 and/or HIV-2 may be due toantigen and antibody levels that are below the limit ofdetection of this assay.The [employer] Head Assistant Wet Process HIV Ag/Ab Combo assay result andsupplemental assay results should be interpreted inconjunction with the patient's clinical presentation,history and other laboratory results. If the results areinconsistent with clinical evidence, additional testing issuggested to confirm the result. 10/14/2022 11:0 4 AM EDT 10/14/2022 12:57 PM EDT Hillary Zamora MD LAB BLOOD ORDERABLES Final Result Performing Organization Address [facility]/ZIP Co de Phone Number [facility] [address] [place] [phone] * Diabetes Eye Exam (06/22/2022) [facility] Signature Eye Exam Normal Normal Comment:[facility] Historical Provider MD HEALTH MAINTENANCE Final Result from Last 3 Months or Most Recently Relevant to Health Maintenance Insurance [facility] [address] [id number] [facility] Advance Directives Documents on File Type Date Recorded Patient Nurse Discharge Expl anation Advance Directives and Living Will 12/04/2024 Health Care Proxy 12/03/24 Care Teams Sponge Hooker Relationship Specialty Start Date End Date Traill, MD [address] [place] [address] PCP - General Family Medicine 03/07/18 Orlando Warner MD [address] [place] [address] Endocrinology 03/29/24 Layla Marrufo NP [address] [place] [address] Urology 04/05/24 Meri Mauricio OD [address] [place] [address] Optometry 04/17/24 Matias Marcelino MD [address] [place] [address] Cardiology 09/06/24 Teetee Zacarias FISH LIVER SORTER Endocrinology 03/29/24
--- OUTSIDE RECORDS SUMMARY | 2024-12-25 15:15 | XMS_ITS | Encounter Summary ---
Author Organization [id number] Address [address] [place] [address] Care Team Providers Care Senior Tax Accountant Name Role Phone Hillary Zamora MD Primary Care Provider [phone] Orlando Warner MD Unavailable Layla Marrufo NP Unavailable Meri Mauricio OD Unavailable [phone] Matias Marcelino MD Unavailable [phone] Encounter Details Date Type Department Care Team (Late st Contact Info) Description 04/17/2024 Orders Only [facility] MEDICINE [address] [place], [place] [phone] Hillary Zamora MD [address], [place] [phone] Type 2 diabetes mellitus with hyperglycemia, with [...] Description 02/04/2025 9:00 AM EST Office Visit [facility] MEDICINE [address] [place] [phone] Hillary Zamora MD [address] [place] [phone] documented as of this encounter Visit Diagnoses [...] documented as of this encounter Care Teams Senior Tax Accountant Relationship Specialty Start Date End Date Hillary Zamora MD [address] [place] [address] PCP - General Family Medicine 03/07/18 Orlando Warner MD [address] [place] [address] Endocrinology 03/29/24 Layla Marrufo NP [address] [place] [address] Urology 04/05/24 Meri Mauricio OD [address] [place] [address] Optometry 04/17/24 Matias Marcelino MD [address] [place] [address] Cardiology 09/06/24 Teetee Zacarias JAVA PORTAL DEVELOPER Endocrinology 03/29/24 documented as of this encounter
== END 2024-12-25 13:52 | disposition home or self-care (01) ==
LOC: HO.ENCR 11:48
PROVIDERS: PCP Family Medicine; Visit Provider Registered Nurse Diabetes Educator
DX: E11.65 Type 2 diabetes mellitus with hyperglycemia (principal)

== ENCOUNTER → 2024-12-25 11:47 | Outpatient (BNVA) | payer OTHER, SELFPAY | PROVIDERS: PCP Family Medicine; Visit Provider Registered Nurse Diabetes Educator | DX: E11.65 Type 2 diabetes mellitus with hyperglycemia (principal) | CPT/HCPCS: 99211 ==

== ENCOUNTER 2024-12-27 08:14 | Outpatient (AMB) | payer OTHER, SELFPAY ==
--- OUTSIDE RECORDS SUMMARY | 2024-12-27 08:34 | XMS_ITS | Encounter Summary ---
Author Organization [employer] Address [address] [place] [address] Care Team Providers Care Drilling Fluids Specialist Name Role Phone Hillary Zamora MD Primary Care Provider [phone] Orlando Warner MD Unavailable Layla Marrufo NP Unavailable Meri Mauricio OD Unavailable Matias Marcelino MD Unavailable Encounter Details Date Type Department Care Team (Late st Contact Info) Description 04/17/2024 Orders Only [facility] MEDICINE [address] [place], [place] [phone] Hillary Zamora MD [address] [place], [place] [phone] Type 2 diabetes mellitus with hyperglycemia, with [...] Description 02/04/2025 9:00 AM EST Office Visit [facility] MEDICINE [address] [place] [phone] Hillary Zamora MD [address] [place] [phone] documented as of this encounter Visit Diagnoses [...] documented as of this encounter Care Teams Drilling Fluids Specialist Relationship Specialty Start Date End Date Hillary Zamora MD [address] [place] [address] PCP - General Family Medicine 03/07/18 Orlando Warner MD [address] [place] [address] Endocrinology 03/29/24 Layla Marrufo NP [address] [place] [address] Urology 04/05/24 Meri Mauricio OD [address] [place] [address] Optometry 04/17/24 Matias Marcelino MD [address] [place] [address] Cardiology 09/06/24 Teetee Zacarias PEDIATRIC ANESTHESIOLOGIST Endocrinology 03/29/24 documented as of this encounter
--- OUTSIDE RECORDS SUMMARY | 2024-12-27 08:34 | XMS_ITS | Clinical Summary ---
Author Organization [employer] Address [address] [facility] [address] [place] [address] Care Team Providers Care Boatwright Name Role Phone Hillary Zamora MD Primary Care Provider [phone] Orlando Warner MD Unavailable Layla Marrufo NP [...] hyperglycemia, with long-term current use of insulin ([facility]) Take by mouth. A ctive sotalol (Betapace) 80 MG tabletIndicatio ns:Chronic atrial fibrillation (CMS/HCC) ([facility]) Take by mouth. Active ezetimibe (Zetia) 10 MG tabletIndicatio ns:Dyslipidemia Take 10 mg by mouth Once per day. Active lisinopril 5 MG tabletIndicatio ns:Primary hypertension Take by mouth Once per day. Active Tirzepatide (Mounjaro) 2.5 MG/0.5ML solution auto-injectorIn dications:Type 2 diabetes mellitus with hyperglycemia, with long-term current use of insulin ([facility]) Inject under the skin. Active tamsulosin (Flomax) [...] 150 MG capsuleIndicati ons:Chronic atrial fibrillation (CMS/HCC) ([facility]) TAKE 1 CAPSULE BY MOUTH TWICE DAILY IN THE MORNING AND IN THE EVENING 60 capsule 5 025 Active FREESTYLE LITE test stripIndication s:Type 2 diabetes mellitus with hyperglycemia, with long-term current use of insulin ([facility]) TEST BLOOD SUGAR SIX TIMES DAILY DIRECTED [...] migh t be different from the original. [facility] Thermodynamics Engineer: Lizz, member services number [phone], provider services line, , option 4 Property Manager Agency: [employer] [place] Problem Noted Date Diagnosed Date Cord [...] procedure -he is scheduled to see the olive pitter September 07, 2023 -he is scheduled for [...] procedure -he is scheduled to see the olive pitter September 07, 2023 -he is scheduled for [...] procedure -he is scheduled to see the olive pitter September 07, 2023 -he is scheduled for [...] Urinary hesitancy 09/02/2023 Overview (12/03/2024): -seen by [facility] 10/27/23 -tamulsosin 0.4 started 10/27/23 [...] rate control. -He was referred back to event set up specialist 01/2021 -Pt seen cardiology 10/2021 with [...] discontinued. -Followed by Dr. Matias Marcelino of [facility], note from 09/04/24 reviewed, [...] rate control. -He was referred back to event set up specialist 01/2021 -Pt seen cardiology 10/2021 with [...] discontinued. -Followed by Dr. Matias Marcelino of [facility], note from 09/04/24 reviewed, [...] rate control. -He was referred back to event set up specialist 01/2021 -Pt seen cardiology 10/2021 with [...] discontinued. -Followed by Dr. Matias Marcelino of [facility] -Saw Evonne Gillespie NP [...] rate control. -He was referred back to event set up specialist 01/2021 -Pt seen cardiology 10/2021 with [...] discontinued. -Followed by Dr. Matias Marcelino of [facility] -Saw Evonne Gillespie NP [...] rate control. -He was referred back to event set up specialist 01/2021 -Pt seen cardiology 10/2021 with [...] discontinued. -Followed by Dr. Matias Marcelino of [facility] -Saw Evonne Gillespie NP [...] been asymptomatic. He was referred back to event set up specialist 01/2021 He is awaiting a new [...] [place] last seen 06/22/2022 -dental home is [facility] proxy filed 12/03/24 Assessment & Plan (12/03/2024 10:01 AM EDT): -next comprehensive annual evaluation due after 12/03/25 -eye care facilitated by James Vernon last seen 06/22/2022 -dental home is [facility] -[facility] proxy filed 12/03/24 Assessment & Plan (09/02/2023 10:25 AM EDT): -next physical exam due after 01/25/2024 -eye care facilitated by [facility] last seen 06/22/2022 -dental [...] ,diastolic dysfunction indeterminate -continue to f with olive pitter Cardiomyopathy 03/29/2022 Overview (12/03/2024): Possibly due to [...] (12/03/2024): Diabetes is not controlled. Followed by [employer], Dr. Warner, note from 10/16/24 reviewed -has Dexacom GCM Lab Results Component Value Date HGBA1C 8.4 (A) 12/03/2024 HGBA1C 9.3 (A) 07/18/2024 HGBA1C 9.7 (A) 05/25/2023 - Lab Results Component Value Date CREATININE 0.79 11/12/2024 EGFR >60 11/12/2024 MICROALBCREU TNP 12/07/2023 MICROALBCREU 12.7 10/14/2022 LDLCHOLCAL 77 10/14/2022 -Orlin/Arb: lisinopril 5mg -Statin therapy: atorvastatin 80mg -Diabetic eye exam: 03/21/24 with [facility] -Continue lifestyle modifications -Followed by Dr. Warner inspector electromechanical -continue Jardiance 25 daily -per Endo 02/06/25 Humulin U500 breakfast 55 units take 80 units if over 200 Supper 55 units take 70 if over 200 -Change Trulicity to Mounjaro and back to Trulicity 4.5 weekly on 09/2024 -Continue Jardiance -ordered repeat routine labs 12/03/24 Assessment & Plan (12/03/2024 10:01 AM EDT): Diabetes is not controlled. Followed by [employer], Dr. Warner, note from 10/16/24 reviewed -has Dexacom GCM Lab Results Component Value Date HGBA1C 8.4 (A) 12/03/2024 HGBA1C 9.3 (A) 07/18/2024 HGBA1C 9.7 (A) 05/25/2023 - Lab Results Component Value Date CREATININE 0.79 11/12/2024 EGFR >60 11/12/2024 MICROALBCREU TNP 12/07/2023 MICROALBCREU 12.7 10/14/2022 LDLCHOLCAL 77 10/14/2022 -Orlin/Arb: lisinopril 5mg -Statin therapy: atorvastatin 80mg -Diabetic eye exam: 03/21/24 with [facility] -Continue lifestyle modifications -Followed by Dr. Warner inspector electromechanical -continue Jardiance 25 daily -per Endo 02/06/25 [...] EDT): Diabetes is not controlled. Followed by [employer], Dr. Warner -has Dexacom GCM Lab Results Component Value Date HGBA1C 9.7 (A) 05/25/2023 HGBA1C 9.1 (A) 01/24/2023 HGBA1C 8.9 (A) 08/18/2022 - Lab Results Component Value Date CREATININE 0.81 10/14/2022 EGFR >60 10/14/2022 MICROALBCREU 12.7 10/14/2022 MICROALBCREU TNP 04/06/2022 LDLCHOLCAL 77 10/14/2022 -Orlin/Arb: lisinopril 5mg -Statin therapy: atorvastatin 80mg -Diabetic eye exam: at [facility] with Gopal Tofte 06/22/2022 -Diabetic foot exam: -Continue lifestyle modifications -Continue current medications -Followed by Dr. Warner inspector electromechanical -continue Trulicity 4.5mg weekly -continue Jardiance 25 daily -continue humulin R U 500 0 units tid Assessment & Plan (05/25/2023 10:47 AM EDT): Diabetes is not controlled. Followed by [employer], Dr. Warner -has Dexacom GCM Lab Results Component Value Date HGBA1C 9.1 (A) 01/24/2023 HGBA1C 8.9 (A) 08/18/2022 Lab Results Component Value Date MICROALBUR 13.0 10/14/2022 CREATININE 0.81 10/14/2022 -Seen by endocrinology on 10/12/2022. No changes made. -Changes: None -Orlin/Arb: lisinopril 5mg -Statin therapy: atorvastatin 80mg -Diabetic eye exam: at [facility] with Gopal Madhavi 06/22/2022 -Diabetic foot exam: -Continue lifestyle modifications -Continue current medications -Followed by Dr. Warner inspector electromechanical -continue Trulicity 4.5mg weekly -continue Jardiance 25 daily -Continue humulin R U 500 0 units tid Assessment & Plan (01/24/2023 12:08 PM EST): Diabetes is not controlled. Followed by [employer], Dr. Warner -has Dexacom GCM Lab Results Component Value Date HGBA1C 9.1 (A) 01/24/2023 HGBA1C 8.9 (A) 08/18/2022 Lab Results Component Value Date MICROALBUR 13.0 10/14/2022 CREATININE 0.81 10/14/2022 -Seen by endocrinology on 10/12/2022. No changes made. -Changes: None -Orlin/Arb: lisinopril 5mg -Statin therapy: atorvastatin 80mg -Diabetic eye exam: at [facility] with Gopal Tofte 06/22/2022 -Diabetic foot exam: -Continue lifestyle modifications -Continue current medications -Followed by Dr. Warner inspector electromechanical -continue Trulicity 4.5mg weekly -continue Jardiance 25 [...] for tx -Will try to refer in [facility] 01/24/2023 Assessment & Plan (12/03/2024 10:01 [...] for tx -Will try to refer in [facility] 01/24/2023 Assessment & Plan (01/24/2023 11:12 AM EST): Does not tolerate CPAP-pt willing to be evaluated again by sleep med and check how can improve use of machine ,explained importance to pt for tx -Will try to refer in [facility] 01/24/2023 Assessment & Plan (08/18/2022 12:01 [...] hb1ac is 8.9-per pt improving following w inspector electromechanical -last echo in chart 12/2021: ef 50-60%, [...] ablation and after it, clearance from his olive pitter prior to have eye surgery --I will have this note fax to his eye doctor today -if pt is cleared from his olive pitter then pt will need to hold on pradaxa the morning of procedure unless indicated differently by his olive pitter,hold as well PO meds in am of procedure and to use half insuline basal insuline at night prior surgery. Also pt will need to check with his olive pitter if prior eye surgery will need to hold digoxin and diltiazem if meds are going to be continued after ablation. -I called today as well to his olive pitter at # [phone] at [facility] and left my phone info to get a call back to discuss with olive pitter, I also inform pt to discuss w his olive pitter at his upcoming visit in 2 days [...] Type Department Care Team Description 12/19/2024 Telephone [facility] [address] [place] [address] Hillary Zamora MD 12/12/2024 Orders Only GENERIC EXTERNAL DATA DEPARTMENT Provider, Generic External Data 12/03/2024 9:00 AM EDT Office Visit [facility] [address] [place] [address] Hillary Zamora MD Obstructive sleep apnea syndrome [...] health status; Morbid obesity (CMS/HCC) 12/03/2024 Telephone [facility] [address] [place] [phone] Hillary Zamora MD [facility] 12/03/2024 Travel 11/30/2024 Telephone [facility] [address] [place] [phone] Sheri Rivera CANDELARIA 11/12/2024 Orders Only GENERIC EXTERNAL DATA DEPARTMENT Provider, Generic External Data 10/31/2024 Refill [facility] [address] [place] [phone] Hillary Zamora MD Type 2 diabetes mellitus with hyperosmolarity, uncontrolled (CMS/[facility]); Dyslipidemia 10/16/2024 Orders Only GENERIC EXTERNAL DATA DEPARTMENT Provider, [facility] External Data 10/10/[address] [address] Hillary Zamora MD Type 2 diabetes mellitus with hyperglycemia, with long-term current use of insulin (CMS/[facility]) 10/01/2024 Telephone [facility] [address] [place] [phone] Hillary Zamora MD 09/28/[address] [address] Hillary Zamora MD chartprep 09/27/[address] [address] Hillary Zamora MD Appointment Confirmation (I book the appt on October 01 at 1:45pm.) 09/27/2024 Travel 09/27/2024 Orders Only GENERIC EXTERNAL DATA DEPARTMENT Provider, Generic External Data 09/26/2024 Patient Outreach [address] [address] Hillary Zamora MD Pre-visit Planning (Pre-visit planning - LVM ) from Last 3 Months Immunizations Immunization Administration [...] situation today? I have j luisnba jacobs 12/03/[address] you [...] Description 02/04/2025 9:00 AM EST Office Visit [facility] [address] [place] [phone] Hillary Zamora MD [address] [place] [address] Health Maintenance Due Date Last Done Comments [...] Specific Antigen 0.66 <0.05 - 4.0 ng/mL [facility] Comment:PSA methodology: Shashank Thakur i ChemiluminescentMicroparticle Immunoassay (CMIA) 12/12/2024 7:37 AM EDT 12/12/2024 7:37 AM EDT Generic External Data Provider LAB BLOOD ORDERAB LES Final Result [facility] [address] [place] [phone] * Vitamin B12 (Cobalamin) and Folate Panel, Serum (12/03/2024 9:41 AM EDT) Vitamin B12 429 200 - 900 pg/mL [facility] Comment:NORMAL 200-900 PG/ML INDETERMINATE 160-199 PG/ML DEFICIENT < 160 PG/ML Folate 10.5 > or = 4.0 ng/mL [facility] Comment:Reference Values:> o r = [...] BLOOD ORDERABLES Final Result Performing Organization Address [facility]/ZIP Co de Phone Number [facility] [address] [place] [phone] * TSH with Reflex to Free T4 (12/03/2024 9:41 AM EDT) TSH reflex Free T4 1.62 0.32 - 4.0 uIU/mL [facility] Blood Venous blood specimen / Unknown 12/03/2024 9:41 AM EDT 12/03/2024 11:13 AM EDT Hillary Zamora MD LAB BLOOD ORDERABLES Final Result Performing Organization Address [facility] Co de Phone Number [facility] [address] [place] [phone] * Albumin, Random Urine W/Creatinine (12/03/2024 9:41 AM EDT) Creatinine, Urine 49.28 mg/dL [facility] Microalbumin Urine <5.0 mg/L [facility] Microalbum Creatinine Ratio Ur TNP <30 ug/mg cr [facility] Comment:Unable to calculate albumin/creatinine ratio due to lowmicroalbumin or creatinine result. Urine 12/03/2024 9:41 AM EDT 12/03/2024 11:02 AM EDT Hillary Zamora MD LAB URINE ORDERABLES Final Result Performing Organization Address [facility] Co de Phone Number [facility] [address] [place] [phone] * CBC auto differential (12/03/2024 9:41 AM EDT) Only the most recent of2 resultswithin the time period is included. White Blood Count 5.3 4.8 - 10.8 X10*3/uL [facility] Red Blood Count 4.80 4.60 - 5.80 X10*6/uL [facility] Hemoglobin 15.5 14.0 - 18.0 g/dl [facility] Hematocrit 46.0 42.0 - 52.0 % [facility] Mean Corpuscular Volume 95.8 80.0 - 98.0 fL [facility] Mean Corpuscular Hemoglobin 32.3 27.0 - 33.0 pg [facility] Mean Corpuscular HGB Conc 33.7 31.0 - 36.0 g/dl [facility] Red Cell Distribution Width 13.2 11.0 - 16.0 % [facility] Platelet Count 209 160 - 400 X10*3/uL [facility] Mean Platelet Volume 10.0 9.4 - 12.4 fL [facility] Neutrophils Percent Auto 54.8 45 - 73 % [facility] Imm Gran Pct Auto 0.4 0.0 - 0.4 % [facility] Lymphocytes Percent Auto 34.3 20 - 40 % [facility] Monocytes Percent Auto 7.9 2 - 11 % [facility] Eosinophils Percent Auto 1.7 0 - 4 % [facility] Basophils Percent Auto 0.9 0 - 2 % [facility] NRBC Pct Auto 0.0 0.0 - 0.2 /100WBC [facility] Neutrophils Absolute Auto 2.9 2.0 - 8.3 x10*3/uL [facility] Imm Gran Abs Auto 0.02 0.00 - 0.03 X10*3/uL [facility] Lymphocytes Absolute Auto 1.8 1.2 - 4.9 X10*3/uL [facility] Monocytes Absolute Auto 0.4 0.1 - 1.2 X10*3/uL [facility] Eosinophils Absolute Auto 0.1 0.0 - 0.4 X10*3/uL [facility] Basophils Absolute Auto 0.1 0.0 - 0.2 X10*3/uL [facility] NRBC Abs Auto 0.000 0.0 - 0.012 X10*3/uL [facility] Blood Venous blood specimen / Unknown 12/03/2024 9:41 AM EDT 12/03/2024 11:13 AM EDT Hillary Zamora MD LAB BLOOD ORDERABLES Final Result Performing Organization Address [facility]/ZIP Co de Phone Number [facility] [address] [place] [phone] * Iron And Total Iron Binding Capacity (12/03/2024 9:41 AM EDT) Iron 106 45 - 160 mcg/dL [facility] Total Iron Binding Capacity 280 228 - 428 mcg/dL [facility] Percent Iron Saturation 38 15 - 50 % [facility] Unsaturated Iron Binding 174 ug/dL [facility] Blood Venous blood specimen / Unknown 12/03/2024 9:41 AM EDT 12/03/2024 11:13 AM EDT Hillary Zamora MD LAB BLOOD ORDERABLES Final Result Performing Organization Address [facility] Co de Phone Number [facility] [address] [place] [phone] * Ferritin (12/03/2024 9:41 AM EDT) Ferritin 148 20 - 250 ng/mL [facility] Blood Venous blood specimen / Unknown 12/03/2024 9:41 AM EDT 12/03/2024 11:13 AM EDT Hillary Zamora MD LAB BLOOD ORDERABLES Final Result Performing Organization Address [facility] Co de Phone Number [facility] [address] [place] [phone] * CEA (12/03/2024 9:41 AM EDT) Carcinoembryonic Antigen <1.73 ng/mL [facility] Comment:CEA Reference Range: 93.4% Non-Smokers [...] BLOOD ORDERABLES Final Result Performing Organization Address [facility] de Phone Number [facility] [address] [place] [phone] * Hepatic Function Panel (12/03/2024 9:41 AM EDT) Bilirubin, Total 0.5 0.0 - 1.0 mg/dL [facility] Bilirubin, Direct 0.2 0.0 - 0.5 mg/dL [facility] Aspartate Amino Transferase 32 5 - 37 U/L [facility] Alanine Aminotransferase 35 0 - 40 U/L [facility] Total Protein 6.9 6.5 - 8.0 g/dL [facility] Albumin Level 4.4 3.5 - 5.0 g/dL [facility] Alkaline Phosphatase 85 39 - 117 U/L [facility] Blood Venous blood specimen / Unknown 12/03/2024 9:41 AM EDT 12/03/2024 11:13 AM EDT Hillary Zamora MD LAB BLOOD ORDERABLES Final Result Performing Organization Address [facility] de Phone Number [facility] [address] [place] [phone] * (ABNORMAL) Lipid Panel, Standard (12/03/2024 9:41 AM EDT) Triglycerides 80 <150 mg/dL [facility] Comment:Desirable Triglyceri de: less than 150 mg/dLBorderline High Triglyceride 150-199 mg/dLHigh Triglyceride: 200-499 mg/dLVery High Triglyceride: greater than or equal to 5OO mg/dL Cholesterol 97 <200 mg/dL [facility] Comment:Desirable Cholestero l: less than 200 mg/dLBorderline High Cholesterol: 200-239 mg/dLHigh Cholesterol: greater than 239 mg/dL LDL Cholesterol Calculated 49 <100 mg/dL [facility] Comment:Desirable LDL: less than 100 mg/dLNear Optimal/Above Optimal LDL: 110- 129 mg/dLBorderline High LDL: 130-159 mg/dLHigh LDL: 160-189 mg/dLVery High LDL: greater than or equal to 190 mg/dL HDL Cholesterol 32(L) >40 mg/dL [facility] Comment:Desirable HDL: great er than 40 mg/dL Note: This HDL assay may give artificially low results in patients with liver disease. Blood Venous blood specimen / Unknown 12/03/2024 9:41 AM EDT 12/03/2024 11:13 AM EDT us Hillary Zamora MD LAB BLOOD ORDERABLES Final Result [facility] [address] [place] [phone] * (ABNORMAL) Basic Metabolic Panel (12/03/2024 9:41 AM EDT) Sodium 140 135 - 145 mmol/L [facility] Potassium 4.6 3.3 - 5.1 mmol/L [facility] Chloride 105 96 - 108 mmol/L [facility] Carbon Dioxide 30(H) 22 - 29 mmol/L [facility] Anion Gap 10(L) 12 - 20 [facility] Urea Nitrogen (BUN) 14 9 - 16 mg/dL [facility] Creatinine, Serum 0.68 0.5 - 1.4 mg/dL [facility] Estimated Glomerular Filt Rate >60 [facility] Comment:Chronic Kidney Disea se: Estimated GFR < 60 mL/min/[id number] Kidney Disease: Estimated GFR < 15 mL/min/1.73m2 Glucose 210(H) 60 - 115 mg/dL [facility] Calcium 9.7 8.4 - 10.2 mg/dL [facility] Blood Venous blood specimen / Unknown 12/03/2024 9:41 AM EDT 12/03/2024 11:13 AM EDT us Hillary Zamora MD LAB BLOOD ORDERABLES Final Result [facility] [address] [place] [phone] * (ABNORMAL) POCT glucose manually resulted (12/03/2024 9:00 AM EDT) Glucose Blood, POC 278(A) 60 - 200 mg/dL [employer] Lot # [id number] Lot# Expiration Date [id number] Blood Capillary blood specimen / Unknown 12/03/2024 9:00 AM EDT Hillary Zamora MD POINT OF CARE TEST ENTER/E DIT ORDERABLES Final Result * (ABNORMAL) POCT glycosylated hemoglobin (Hgb A1c) (12/03/2024 8:58 AM EDT) Hemoglobin A1C 8.4(A) 4.0 - 5.7 % [employer] Media Lot # [id number] Lot# Expiration Date [id number] Blood Capillary blood specimen / Unknown 12/03/2024 8:58 AM EDT us Hillary Zamora MD POINT OF CARE TEST ENTER/E DIT ORDERABLES Edited Result - Final * XR Ribs 3 Views Right with Chest 1 View (11/12/2024 1:30 PM EDT) Anatomical Region Laterality Modality Radiographic Claire ging 11/12/2024 1:30 PM EDT Narrative 11/12/2024 1:49 PM EDT [address] [address] XRay Report Signed Patient: Abraham Hoover MR#: [id number] : 1965 Acct:[id number] Age/Sex: 59 / M ADM Date: 11/12/24 Loc: HO.ED Attending Dr: Ordering Physician: Juan Carlos Patricio DO Date of Service: 11/12/24 Procedure(s): XR ribs RT min 3V w CXR1V Accession Number(s): [id number] cc: Hillary Zamora MD; Juan Carlos Patricio [...] 11/12/24 1347 DD/ 1330 TD/TT: 11/12/24 1339 Utility Engineer: Procedure Note Donotuseinterpreter, Image - 11/12/[address] [address] XRay Report Signed Patient: Trace HooverR#: [id number] : 1965Acct:[id number] Age/Sex: 59 / MADM Date: 11/12/24 Loc: HO.ED Attending Dr: Ordering Physician: Juan Carlos Patricio DO Date of Service: 11/12/24 Procedure(s): XR ribs RT min 3V w CXR1V Accession Number(s): [id number] cc: Hillary Zamora MD; Juan Carlos Patricio [...] 11/12/24 1347 DD/ 1330 TD/TT: 11/12/24 1339 Utility Engineer: [facility] External Provider IMG XR PROCEDURES Edited Result - Final * CT Cervical Spine w/o Contrast (11/12/2024 12:56 PM EDT) Anatomical Region Laterality Modality Spine, C-spine Computed Tomogra phy 11/12/2024 12:5 6 PM EDT Narrative 11/12/2024 1:30 PM EDT [place] [address] CT Scan Report Signed Patient: Abraham Hoover MR#: [id number] : 1965 Acct:[id number] Age/Sex: 59 / M ADM Date: 11/12/24 Loc: HO.ED Attending Dr: Ordering Physician: Farhana Silverman Date of Service: 11/12/24 Procedure(s): CT cervical spine wo IV con Accession Number(s): [id number] cc: Hillary Zamora MD; Farhana Silverman Report Number: [id number]: Total DLP = 531.00 mGy-cm Reason for [...] 11/12/24 1327 DD/ 1256 TD/TT: 11/12/24 1305 Utility Engineer: Procedure Note Donotuseinterpreter, Image - 11/12/[address] [place] [address] [address] Scan Report Signed Patient: Vicente Ansari OtilioMR#: [id number] : 1965Acct:[id number] Age/Sex: 59 / MADM Date: 11/12/24 Loc: HO.ED Attending Dr: Ordering Physician: Farhana Silverman Date of Service: 11/12/24 Procedure(s): CT cervical spine wo IV con Accession Number(s): [id number] cc: Hillary Zamora MD; Farhana Silverman Report Number: [id number]: Total DLP = 531.00 mGy-cm Reason for [...] 11/12/24 1327 DD/ 1256 TD/TT: 11/12/24 1305 Utility Engineer: [facility] External Provider IMG CT PROCEDURES Edited Result - Final * CT Head w/o Contrast (11/12/2024 12:56 PM EDT) Anatomical Region Laterality Modality Head, Neck Computed Tomogra phy 11/12/2024 12:5 6 PM EDT Narrative 11/12/2024 1:28 PM EDT [place] [address] [place] Scan Report Signed Patient: Abraham Hoover MR#: [id number] : 1965 Acct:[id number] Age/Sex: 59 / M ADM Date: 11/12/24 Loc: .ED Attending Dr: Ordering Physician: Farhana Silverman Date of Service: 11/12/24 Procedure(s): CT head/brain wo IV con Accession Number(s): [id number] cc: Hillary Zamora MD; Farhana Silverman Report Number: [id number]: Total DLP = 732.00 mGy-cm Reason for [...] 11/12/24 1326 DD/ 1256 TD/TT: 11/12/24 1305 Utility Engineer: Procedure Note Donotuseinterpreter, Image - 11/12/[address] [place] [address] [address] Scan Report Signed Patient: Vicente AnsariOtilioMR#: [id number] : 1965Acct:[id number] Age/Sex: 59 / MADM Date: 11/12/24 Loc: HO.ED Attending Dr: Ordering Physician: Farhana Silverman Date of Service: 11/12/24 Procedure(s): CT head/brain wo IV con Accession Number(s): [id number] cc: Hillary Zamora MD; Farhana Silverman Report Number: [id number]: Total DLP = 732.00 mGy-cm Reason for [...] 11/12/24 1326 DD/ 1256 TD/TT: 11/12/24 1305 Utility Engineer: [facility] External Provider IMG CT PROCEDURES Edited Result - Final * (ABNORMAL) Prothrombin Time-INR (11/12/2024 12:30 PM EDT) Prothrombin Time 14.6(H) 10.9 - 12.4 SEC [facility] INTERNATIONAL NORM RATIO 1.3(H) 0.9 - 1.1 [facility] Comment:INTERNATIONAL NORMAL IZED RATIO (INR) [...] Provider LAB BLOOD ORDERAB LES Final Result [facility] [address] [place] [address] [phone] * (ABNORMAL) Comprehensive Metabolic Panel (11/12/2024 12:30 PM EDT) Sodium 141 135 - 145 mmol/L [facility] Potassium 4.6 3.3 - 5.1 mmol/L [facility] Chloride 108 96 - 108 mmol/L [facility] Carbon Dioxide 25 22 - 29 mmol/L [facility] Anion Gap 13 12 - 20 [facility] Urea Nitrogen (BUN) 11 9 - 16 mg/dL [facility] Creatinine, Serum 0.79 0.5 - 1.4 mg/dL [facility] Creatinine Clr Calc Pharmacy 107.7 [facility] Comment:eGFR (calculated fro m the MDRD study equation) and eCrCl(calculated from the Cockcroft-Gault equation) are based ondifferent parameters and may not yield comparable results.If eCrCl result is absurd, please check patient'sheight/weight. Estimated Glomerular Filt Rate >60 [facility] Comment:Chronic Kidney Disea se: Estimated GFR < 60 mL/min/1.18i9Dmosta Kidney Disease: Estimated GFR < 15 mL/min/1.73m2 Glucose 173(H) 60 - 115 mg/dL [facility] Calcium 9.2 8.4 - 10.2 mg/dL [facility] Bilirubin, Total 0.7 0.0 - 1.0 mg/dL [facility] Aspartate Amino Transferase 27 5 - 37 U/L [facility] Alanine Aminotransferase 29 0 - 40 U/L [facility] Total Protein 6.5 6.5 - 8.0 g/dL [facility] Albumin Level 4.2 3.5 - 5.0 g/dL [facility] Alkaline Phosphatase 60 39 - 117 U/L [facility] 11/12/2024 12:3 0 PM EDT 11/12/2024 12:32 PM EDT Generic External Data Provider LAB BLOOD ORDERAB LES Final Result Performing Organization Address City/[facility]/ZIP Co de Phone Number [facility] [address] [place] [phone] * (ABNORMAL) Glucose, Whole Blood (10/16/2024 9:14 AM EDT) Glucose, Whole Blood 221(H) 60 - 115 mg/dL [facility] Comment:METER #: [id number] Testing performed in the Endocrinology Department [address], [address], [facility]. 10/16/2024 9:14 AM EDT 10/16/2024 9:20 AM EDT Generic External Data Provider LAB BLOOD ORDERAB LES Final Result Performing Organization Address City/[facility] Co de Phone Number [facility] [address] [place] [phone] * (ABNORMAL) Cologuard?? colon cancer screening (02/07/2023 7:30 AM EST) Cologuard Result Positive( A) Negative 02/15/2023 9:47 AM EST [employer] (CLIA #:[id number]) Comment: POSITIVE TEST RESULT. A positive Cologuard [...] Benites et al, N Engl J Med 2014;370(14):4907-2290.) Cologuard may produce a false negative or false positive result (no colorectal cancer or precancerous polyp present at colonoscopy follow up). A negative Cologuard test result does not guarantee the absence of CRC or advanced adenoma (pre-cancer). The current Cologuard screening interval is every 3 years. ([place] [employer] Society and U.S. Multi-Society Task Force). Cologuard performance data in a 10,000 patient pivotal study using colonoscopy as the reference method can be accessed at the following location: [email or web address]/results. Additional description of the Cologuard test process, warnings and precautions can be found at www.[email or web address].[email or web address]. Stool specimen (specimen) 02/07/2023 7:30 AM EST 02/08/2023 3:13 PM EST Hillary Zamora MD LAB MOLECULAR DIAGNOSTICS ORDERABLES Final Result [facility] (CLIA #:[id number]) [address] [place] [address], * Hepatitis C Antibody Reflex (10/14/2022 11:04 AM EDT) Hepatitis C Antibody Nonreactive Nonreactive [facility] Comment:Antibodies to HCV no t detected; does not exclude early acuteHCV infection. 10/14/2022 11:0 4 AM EDT 10/14/2022 12:57 PM EDT Hillary Zamora MD LAB BLOOD ORDERABLES Final Result Performing Organization Address [facility] Co de Phone Number [facility] [address] [place] [phone] * HIV Ab/Ag ([facility]) (10/14/2022 11:04 AM EDT) Pathologist [facility] HIV AB/AG Nonreactive Nonreactive [facility] Comment:HIV-1 p24 Ag and/or HIV-1/HIV-2 Ab not detected.A test result that is nonreactive does not exclude thepossibility of exposure to or infection with HIV-1 and/orHIV-2. Nonreactive results in this assay for individualswith prior exposure to HIV-1 and/or HIV-2 may be due toantigen and antibody levels that are below the limit ofdetection of this assay.[employer] HIV Ag/Ab Combo assay result andsupplemental assay results should be interpreted inconjunction with the patient's clinical presentation,history and other laboratory results. If the results areinconsistent with clinical evidence, additional testing issuggested to confirm the result. 10/14/2022 11:0 4 AM EDT 10/14/2022 12:57 PM EDT Hillary Zamora MD LAB BLOOD ORDERABLES Final Result Performing Organization Address [facility]/ZIP Co de Phone Number [facility] [address] [place] [phone] * Diabetes Eye Exam (06/22/2022) [facility] Signature Eye Exam Normal Normal Comment:[facility] Historical Provider MD HEALTH MAINTENANCE Final Result from Last 3 Months or Most Recently Relevant to Health Maintenance Insurance [facility] [address] [id number] [facility] Advance Directives Documents on File Type Date Recorded Patient Pattern Lease Inspector Expl anation Advance Directives and Living Will 12/04/2024 Health Care Proxy 12/03/24 Care Teams Boatwright Relationship Specialty Start Date End Date Sera, MD Hillary [address] [place] [address] PCP - General Family Medicine 03/07/18 Orlando Warner MD [address] [place] [address] Endocrinology 03/29/24 Layla Marrufo NP [address] [place] [address] Urology 04/05/24 Meri Mauricio OD [address] [place] [address] Optometry 04/17/24 Matias Marcelino MD [address] [place] [address] Cardiology 09/06/24 Teetee Zacarias BUGGY LOADER Endocrinology 03/29/24
--- OUTSIDE RECORDS SUMMARY | 2024-12-27 08:34 | XMS_ITS | Encounter Summary ---
Author Organization [facility] Address [address] [place] [address] Care Team Providers Care Accounting Teacher Name Role Phone Hillary Zamora MD Primary Care Provider [phone] Orlando Warner MD Unavailable [phone] Layla Marrufo NP Unavailable Meri Mauricio OD Unavailable [phone] Matias Marcelino MD Unavailable [phone] Encounter Details Date Type Department Care Team (Latest Contact Info) Description 12/23/2020 Abstract [facility] CONVERSIONS Dental, Provider, DDS Social History Tobacco [...] 9:00 AM EST Office Visit [facility] MEDICINE [address] [place], [place] [phone] Hillary Zamora MD [address] [place], [place] [phone] documented as of this encounter Visit Diagnoses Not on filedocumented in this encounter Care Teams Accounting Teacher Relationship Specialty Start Date End Date Hillary Zamora MD [address] [place] [address] PCP - General Family Medicine 03/07/18 Orlando Warner MD [address] [place] [address] Endocrinology 03/29/24 Lyala Marrufo NP [address] [place] [address] Urology 04/05/24 Meri Mauricio OD [address] [place] [address] Optometry 04/17/24 Matias Marcelino MD [address] [place] [address] Cardiology 09/06/24 Teetee Zacarias LIFTER/DRIVER Endocrinology 03/29/24 documented as of this encounter
[2024-12-27 09:21] VITALS: BP 128/64; PULSE 123; BMI 25.8
--- NOTE | 2024-12-27 09:21 | MHC.OFFVIS ---
Vital Signs 12/27/24 09:21 Height 6 ft Weight 190 lb 0.615 oz BMI 25.8 BP 128/64 Blood Pressure Location Lt brachial Pulse 123 H Pulse Source Monitor Intake Visit Reasons: 3 mth f/up EP Paper Ruler Required: No Accompanied by: Self / Same As Patient Allergies Penicillins (PENICILLINS) Allergy (Unknown, Verified 12/27/24 09:26) UNKNOWN metformin Adverse Reaction (Unknown, Verified 12/27/24 09:26) diarrhea Medication List - Last Reconciled 12/27/24 by Matias Marcelino MD atorvastatin 80 mg PO BEDTIME blood sugar diagnostic (FreeStyle Lite Strips) As directed blood-glucose meter (FreeStyle Lite Meter kit) As directed blood-glucose sensor ([employer] G7 Sensor device) As directed cholecalciferol (vitamin D3) (Vitamin D3) 50 mcg PO QAM dabigatran etexilate (Pradaxa) 150 mg PO BID divalproex 1,000 mg PO BEDTIME dulaglutide (Trulicity) 4.5 mg (0.5 mL) subcut QWEEK ezetimibe 10 mg PO QAM insulin regular hum U-500 conc (Humulin R U-500 (Conc) Insulin Kwikpen) Breakfast 55 units, 80 units if over 200 supper 55 units, 70 units if over 200 subcutaneously 2 times a day; 30 days Jardiance (empagliflozin) 25 mg PO QAM 30 days NS lancets (FreeStyle Lancets) As directed lancets (TRUEplus Lancets) USE DIRECTED TO TEST BLOOD SUGAR SIX TIMES DAILY DIRECTED lisinopril 5 mg PO QAM melatonin 1 tab PO BEDTIME PRN omeprazole 40 mg PO QAM PRN sotalol 120 mg PO BID tamsulosin 0.4 mg PO BEDTIME 30 days HPI Comments Details: Abraham returns for follow-up. I have not seen him in awhile as he has seen our nurse practitioners. To recall, he has had numerous ablations for atrial flutter/fibrillation. Most recently performed in 2022. He has been on various antiarrhythmics at different times including Multaq, flecainide, amiodarone and sotalol. After the last ablation in 2022, he had recurring atrial fibrillation and hence he was continued on Sotalol 120 mg b.i.d.. According to patient, he has been going in and out of atrial fibrillation as he does feel palpitations. He has also seen EP and he has not ablation coming up in a couple of weeks. Today, he is in atrial fibrillation with slightly increased rate and he states this started in the morning today. Otherwise, he has lost lot of weight. He was over 300 lb in the past but currently 190 lb. He states his appetite is not good either. 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 Hypertension Dyslipidemia Obesity Diabetes type 2, uncontrolled Paroxysmal A-fib Surgical History History of radiofrequency ablation procedure for cardiac arrhythmia Hx of colonoscopy Family History Father Cancer Diabetes CVD (cardiovascular disease) Mother Diabetes Social History Household Members: None Household Members Other:: Alcohol intake: never Patient Tobacco Use Status: Former Tobacco user Substance Use Type: Crack/Cocaine and Marijuana Current occupational status: disabled Current occupation: left handed Review of Systems Const Denies daytime sleepiness, Denies difficulty sleeping, Reports poor appetite, Denies snoring, Denies stops breathing during sleep and Reports weakness ENT Reports dizziness Card Reports chest pain, Denies rapid heart rate, Denies irregular heart rhythm, Denies claudication, Denies leg edema, Reports lightheadedness, Denies palpitations, Reports dyspnea, Reports dyspnea on exertion, Denies orthopnea, Denies paroxysmal nocturnal dyspnea and Denies slow heart rate Resp Denies cough, Reports dyspnea, Reports dyspnea on exertion and Denies snoring GI Reports no additional complaints, Denies hematochezia, Denies change in stool character and Denies dyspepsia Musc Denies abnormal gait, Denies muscle weakness and Denies numbness Neuro Denies abnormal gait, Reports dizziness, Denies numbness and Reports weakness Endo Denies palpitations Physical Exam Vital Signs: Last Vital Signs Pulse 123 H 12/27/24 09:21 BP 128/64 12/27/24 09:21 BMI result Body Mass Index 25.8 Const General: comfortable and no acute distress Orientation/consciousness: patient oriented x3 HEENT Other: Unremarkable Head: Yes normal to inspection Neck Neck: Yes normal visual inspection Chest Chest palpation & inspection: normal inspection of the chest Resp Auscultation: clear to auscultation bilaterally Cardio Palpation: normal PMI Heart sounds: S1 normal heart sound present, S2 normal heart sound present, no gallops, no murmurs and no rubs GI Palpation (GI): Soft to palpation Back/Spine/Pelvis Other: unremarkable Skin General skin exam: no rashes or lesions noted Neuro General: patient oriented x3 Extrem General: Yes normal to inspection Psych Mental Status: mental status grossly normal Office Procedures EKG Details: EKG with atrial fibrillation at a rate of 123/Min. 76195-[id number], Complete Assessment & Plan Assessment & Plan (1) Persistent atrial fibrillation: Code(s): I48.19 - Other persistent atrial fibrillation Category: Medical Plan: Prior atrial flutter/fibrillation ablations, around 4-5. Last 2022. By EKG in July 2024, he was not sinus rhythm, but since then, EKGs had shown atrial fibrillation. Patient feels he is going in and out of atrial fibrillation. Already seen EP and awaiting ablation in January. Today with regard to the atrial fibrillation, sent message to EP, and awaiting response. Unclear what medication changes to make as he has already essentially tried everything and has also had many ablations and still difficult to maintain his rhythm. In the echocardiogram, reported normal left atrial size. (2) Typical atrial flutter: Code(s): I48.3 - Typical atrial flutter Category: Medical Plan: Status post ablation. Has had recurrent flutter suspected to be of possible left atrial origin. Overall plan as above. (3) Nonischemic cardiomyopathy: Code(s): I42.8 - Other cardiomyopathies Category: Medical Plan: Has had diminished LVEF at different times in the past. In the last study, LVEF 55-60%. (4) Precordial chest pain: Code(s): R07.2 - Precordial pain Category: Medical Plan: No recent issues. Cardiac catheterization 2012-no significant CAD. Stress MIBI from 2017 unremarkable. Repeat study from March 2024, no clear evidence of ischemia or infarction. Inferior wall assessment suboptimal due to subdiaphragmatic uptake. (5) Type 2 diabetes mellitus with unspecified complications: Code(s): E11.8 - Type 2 diabetes mellitus with unspecified complications Category: Medical Plan: On insulin, Trulicity, Empagliflozin. In spite of all the weight loss, hemoglobin A1c is still high at 9.3%. (6) Morbid obesity: Code(s): E66.01 - Morbid (severe) obesity due to excess calories Category: Medical Plan: He has lost lot of weight. Per patient, he was as much as 360 lb but currently at 190 lb. (7) CLAUDIA (obstructive sleep apnea): Code(s): G47.33 - Obstructive sleep apnea (adult) (pediatric) Category: Medical Plan: Not able to use CPAP as it is very inconvenient. We have discussed about this numerous times. Plan Discussion Notes During the visit, we discussed the patient's recurrent atrial fibrillation and the upcoming ablation procedure scheduled for January 17. We also addressed his concerns about weight loss and loss of appetite, which he attributes to Trulicity. Patient was informed and verbally consented to the use of an ambient scribe for clinic note documentation during this visit. Patient Instructions: - Monitor symptoms of atrial fibrillation and report any changes. - keep your appointment for ablation. - Seek further evaluation for loss of appetite if symptoms persist. Coding Level of Care Code Est Pt Level 4 (75097) Complex EM visit Add On G2211 Diagnoses Persistent atrial fibrillation I48.19 Typical atrial flutter I48.3 Nonischemic cardiomyopathy I42.8 Precordial chest pain R07.2 Type 2 diabetes mellitus with unspecified complications E11.8 Morbid obesity E66.01 CLAUDIA (obstructive sleep apnea) G47.33 CPT Codes EKG - CPT: 37115-[id number], Complete ([id number])
== END 2024-12-27 09:44 | disposition home or self-care (01) ==
LOC: HO.HCS 08:15
PROVIDERS: PCP Family Medicine; Visit Provider Internal Medicine
DX: I48.19 Other persistent atrial fibrillation (principal); I48.3 Typical atrial flutter; I42.8 Other cardiomyopathies; R07.2 Precordial pain; E11.8 Type 2 diabetes mellitus with unspecified complications; E66.01 Morbid (severe) obesity due to excess calories; G47.33 Obstructive sleep apnea (adult) (pediatric)
CPT/HCPCS: 93010; 99214; G2211

== ENCOUNTER → 2024-12-27 08:14 | Outpatient (BNVA) | payer OTHER, SELFPAY | PROVIDERS: PCP Family Medicine; Visit Provider Internal Medicine | DX: I48.19 Other persistent atrial fibrillation (principal); I48.3 Typical atrial flutter; I42.8 Other cardiomyopathies; R07.2 Precordial pain; E11.8 Type 2 diabetes mellitus with unspecified complications; E66.01 Morbid (severe) obesity due to excess calories; G47.33 Obstructive sleep apnea (adult) (pediatric) | CPT/HCPCS: 93005; 99212 ==

== ENCOUNTER 2025-01-07 11:58 | Outpatient (REF) | payer OTHER, SELFPAY ==
--- OUTSIDE RECORDS SUMMARY | 2025-01-03 09:00 | XMS_ITS | Encounter Summary ---
Author Organization [employer] Address [address] [place] [address] Care Team Providers Care Transport Driver Name Role Phone Sera, Hillary ONTIVEROS Primary Care Provider [phone] Orlando Warner MD Unavailable [phone] Layla Marrufo NP Unavailable Meri Mauricio OD Unavailable Matias Marcelino MD Unavailable [phone] Reason for Visit * Reason Comments Acupuncture Encounter Details Date Type Department Care Team (Late st Contact Info) Description 01/03/2025 10:00 AM EDT Office Visit [facility] [address] [place], [place] [phone] Suzette Alvares MD [address] [place], [place] [phone] Multiple joint pain (Primary Dx) Social History Tobacco Use Types [...] as of this encounter Progress Notes * Suzette Alvares MD - 01/03/2025 10:00 AM EDT Subjective Patient ID: Abraham Zhang is a 59 y.o. male who presents for Acupuncture. Abraham is here for acupuncture treatment #1. He is interested in addressing joint pain at multiple sites. He previously attended the acupuncture clinic in 2021 with good results for stress. In the interim, he tells me that his from COVID in 2021. He has also been dealing with a number of serious health issues. He has lost quite a bit of weight, which is mostly intentional. Review of Systems Musculoskeletal: Positive for arthralgias. Objective Physical Exam Constitutional: Appearance: Normal appearance. Skin: General: Skin is warm and dry. Neurological: Mental Status: He is alert and oriented to person, place, and time. Assessment/Plan Diagnoses and all orders for this visit: Multiple joint pain Written consent obtained for ear acupuncture. Ears prepped with alcohol pad. Five ear points needled bilaterally: Sympathetic, Banks Men, Kidney, Liver and Lung. Treatment duration: 30 minutes. Good hemostasis. Patient tolerated well. Follow up weekly for repeat acupuncture treatments as desired. documented in this encounter Plan of Treatment Upcoming Encounters Date Type Department Care Team (Late st Contact Info) Description 02/04/2025 9:00 AM EST Office Visit [facility] [address] [place] [address] Hillary Zamora MD [address] [place] [address] documented as of this encounter Visit Diagnoses Diagnosis Multiple joint pain- Primary Pain in joint, multiple sites documented in this encounter Additional Health Concerns Assessment Noted Time PHQ-9 Depression Total Score: 0 12/04/19 8:51 AM EDT documented as of this encounter Care Teams Transport Driver Relationship Specialty Start Date End Date Hillary Zamora MD [address] [place] [address] PCP - General Family Medicine 03/07/18 Orlando Warner MD [address] [place] [address] Endocrinology 03/29/24 Layla Marrufo NP [address] [place] [address] Urology 04/05/24 Meri Mauricio OD [address] [place] [address] Optometry 04/17/24 Matias Marcelino MD [address] [place] [address] Cardiology 09/06/24 Teetee Zacarias DIGITAL MARKETING LEAD Endocrinology 03/29/24 documented as of this encounter
[2025-01-07 12:18] LABS: MANUAL DIFF FLAG NO
[2025-01-07 12:31] LABS: Hematocrit 42.6 % (42.0-52.0); Hemoglobin 14.4 g/dl (14.0-18.0); Imm Gran Abs Auto 0.00 X10*3/uL (0.00-0.03); Imm Gran Pct Auto 0.0 % (0.0-0.4); Lymphocytes Absolute Auto 1.9 X10*3/uL (1.2-4.9); Mean Corpuscular HGB Conc 33.8 g/dl (31.0-36.0); Mean Corpuscular Hemoglobin 32.5 pg (27.0-33.0); Mean Corpuscular Volume 96.2 fL (80.0-98.0); NRBC Abs Auto 0.000 X10*3/uL (0.0-0.012); NRBC Pct Auto 0.0 /100WBC (0.0-0.2); Platelet Count 173 X10*3/uL (160-400); Red Blood Count 4.43 X10*6/uL (4.60-5.80); White Blood Count 4.5 X10*3/uL (4.8-10.8)
[2025-01-07 12:56] LABS: Anion Gap 11 (12-20); Blood Urea Nitrogen 11 mg/dL (9-16); Calcium 9.5 mg/dL (8.4-10.2); Carbon Dioxide 29 mmol/L (22-29); Chloride 105 mmol/L (96-108); Estimated Glomerular Filt Rate > 60; Potassium 4.6 mmol/L (3.3-5.1); Sodium 140 mmol/L (135-145)
--- OUTSIDE RECORDS SUMMARY | 2025-01-07 15:14 | XMS_ITS | Encounter Summary ---
Author Organization [employer] Address [address] [facility] 7t [place] [address] Care Team Providers Care Dietitian Assistant Name Role Phone Sera, Hillary ONTIVEROS Primary Care Provider [phone] Orlando Warner MD Unavailable [phone] Layla Marrufo NP Unavailable Meri Mauricio OD Unavailable [phone] Matias Marcelino MD Unavailable [phone] Encounter Details Date Type Department Care Team (Latest Contact Info) Description 01/03/2025 Travel Social History Tobacco Use Types Packs/Day [...] Description 02/04/2025 9:00 AM EST Office Visit [facility] [address] [place] [phone] Hillary Zamora MD [address] [place] [address] documented as of this encounter Visit Diagnoses Not on filedocumented in this encounter Additional Health Concerns Assessment Noted Time PHQ-9 Depression Total Score: 0 12/04/19 25 8:51 AM EDT documented as of this encounter Care Teams Dietitian Assistant Relationship Specialty Start Date End Date Hillary Zamora MD [address] [place] [address] PCP - General Family Medicine 03/07/18 Orlando Warner MD [address] [place] [address] Endocrinology 03/29/24 Layla Marrufo NP [address] [place] [address] Urology 04/05/24 Meri Mauricio OD [address] [place] [phone] Optometry 04/17/24 Matias Marcelino MD [address] [place] [address] Drive 3rd [place] [address] Cardiology 09/06/24 Teetee Zacarias REGIONAL VICE PRESIDENT LIFE SALES Endocrinology 03/29/24 documented as of this encounter
--- OUTSIDE RECORDS SUMMARY | 2025-01-07 15:14 | XMS_ITS | Data Portability ---
Author Organization [employer] Address [address] [place] [address] Care Team Providers Care Inspecting And Testing Lead Hand Name Role Phone Unavailable Referring Provider [phone] [facility] Referring Provider [phone] Assessment Encounter Date Assessment Date Assessment LastModified by Organization Details LastModified Time 05/14/2022 05/14/2022 I provided real -time medical direction via phone for this encounter, and was available for additional phone based assistance as needed. I have reviewed and agree with the Assessment and Plan as documented by the Campus Wellness Coordinator. Patient given the opportunity to ask questions. [...] he has AFib. during the time the manipulative therapy specialist was there is heart rate generally stayed [...] As an addendum the patient called his terminal press operator to clarify his dose. He was supposed to be on metoprolol 50 mg twice a day. Upon further discussion with his terminal press operator he was referred to the emergency department [...] tablet,exte nded release 24 hr 2022 023 [facility], [address] [place] [address], [id number], 3 13:41:10 Patient TargetsNo targets recorded. Patient InstructionsNo instructions recorded. Reason for Referral None Reported. Medical Equipment None Reported. Allergies Allergen ID Allergen Name Allergen Category Reaction Reaction Severity Criticality Documentation Date Start Date Code Code System Note Provider Name and Address Organization Details Recorded Time 6917 Product containin g penicilli n (product) medicatio n Not available Not available Not available 01/03/2024 95185 8001 SNOMED Not Available [facility] - production [...] Diagnosis SNOMED-CT Code Diagnosis ICD10 Code Diagnosis IMO Codes Diagnosis Note 8375 Abena Kent MD Main - [facility] [address] [place] [phone] 05/14/2022 13:19:28 05/17/2022 10:39:10 Atrial fibrillation 06404097 I48.91 Health Concerns Section Related Observation LastModified by Organization Detai ls LastModified Time None Recorded Concern Status LastModified by Organization Details LastModified Time None Recorded Advance Directives Directive None Recorded Payers Insurance Date Sequence Insurance Name Policy Number Policy Patterson Covered Member ID Patterson Member ID Guarantor Name 05/10/2023 1 [facility] - DOS PRIOR TO 2022 - DUAL ELIGIBLE (MEDICARE REPLACEMENT/ADV ANTAGE - HMO) Abrahamroosevelt Ansari [id number] Abarham Ansari 05/10/2023 1 [facility] - DOS ON OR AFTER 2022 - DUAL ELIGIBLE - [facility] OPTIONS AND ONE CARE (MEDICARE REPLACEMENT/ADV ANTAGE - HMO) Abraham Ansari [id number] Abraham Ansari Notes Date Note Type Note Provider Name and Address Organization Details Recorded Time 05/14/2022 text/html HPI: ALLERGIC TO: PCN, METFORMIN. Patient with history of Afib with recent med change reporting HR 120's with slight dizziness. Recently seen 05/12/22 with complaints of chest pain [facility] ED .................. .................. .................. .................. .................. .................. .................. ............... CRC Nursing Assessment: Comments: CRC RN did not require any additional information to process this visit. Abena Kent MD [address] [place] [address],[address], [place], [address], [employer] 05/14/2022 13:48:00
--- OUTSIDE RECORDS SUMMARY | 2025-01-07 15:14 | XMS_ITS | Encounter Summary ---
Author Organization [facility] Address [address] [facility] 7t [place] [address] Care Team Providers Care Hat Sprayer Name Role Phone Hillary Zamora MD Primary Care Provider + [phone] Orlando Warner MD Unavailable [phone] Layla Marrufo NP Unavailable Meri Mauricio OD Unavailable [phone] Matias Marcelino MD Unavailable [phone] Encounter Details Date Type Department Care Team (Latest Contact Info) Description 12/23/2020 Abstract [facility] CONVERSIONS Dental, Provider, DDS Social [...] Description 02/04/2025 9:00 AM EST Office Visit [facility] [address] [place], [place] [phone] Hillary Zamora MD [address] [place], [place] [phone] documented as of this encounter Visit Diagnoses Not on filedocumented in this encounter Care Teams Hat Sprayer Relationship Specialty Start Date End Date Hillary Zamora MD [address] [place] [address] PCP - General Family Medicine 03/07/18 Orlando Warner MD [address] [place] [address] Endocrinology 03/29/24 Layla Marrufo NP [address] [place] [address] Urology 04/05/24 Meri Mauricio OD [address] [place] [address] Optometry 04/17/24 Matias Marcelino MD [address] 3rd [place] [address] Cardiology 09/06/24 Teetee Zacarias ELIGIBILITY CLERK Endocrinology 03/29/24 documented as of this encounter
--- OUTSIDE RECORDS SUMMARY | 2025-01-07 15:14 | XMS_ITS | Encounter Summary ---
Author Organization [employer] Address [address] [facility] 7t [place] [address] Care Team Providers Care It Applications Developer Name Role Phone Hillary Zamora MD Primary Care Provider [phone] Orlando Warner MD Unavailable [phone] Layla Marrufo NP Unavailable Meri Mauricio OD Unavailable Matias Marcelino MD Unavailable [phone] Encounter Details Date Type Department Care Team (Late st Contact Info) Description 04/17/2024 Orders Only [facility] [address] [place], [place] [phone] Hillary Zamora MD [address] [place], [place] [phone] Type 2 diabetes mellitus with hyperglycemia, with [...] Description 02/04/2025 9:00 AM EST Office Visit [facility] [address] [place] [phone] Hillary Zamora MD [address] [place] [phone] documented as of this encounter Visit Diagnoses [...] documented as of this encounter Care Teams It Applications Developer Relationship Specialty Start Date End Date Hillary Zamora MD [address] [place] [address] PCP - General Family Medicine 03/07/18 Orlando Warner MD [address] [place] [address] Endocrinology 03/29/24 Layla Marrufo NP [address] [place] [address] Urology 04/05/24 Meri Mauricio OD [address] [place] [address] Optometry 04/17/24 Matias Marcelino MD [address] 3rd [place] [address] Cardiology 09/06/24 Teetee Zacarias PHOTOGRAPHIC INTELLIGENCE OFFICER Endocrinology 03/29/24 documented as of this encounter
--- OUTSIDE RECORDS SUMMARY | 2025-01-07 15:14 | XMS_ITS | Encounter Summary ---
Author Organization [employer] Address [address] [facility] 7t [place] [address] Care Team Providers Care Exercise Science Instructor Name Role Phone Sera, Hillary ONTIVEROS Primary Care Provider [phone] Orlando Warner MD Unavailable [phone] Layla Marrufo NP Unavailable Meri Mauricio OD Unavailable [phone] Matias Marcelino MD Unavailable [phone] Encounter Details Date Type Department Care Team (Late st Contact Info) Description 01/07/2025 Orders Only GENERIC EXTERNAL DATA DEPARTMENT Provider, [...] housing situation today? I have j luis sing 12/03/[address] you li [...] Description 02/04/2025 9:00 AM EST Office Visit [facility] [address] [place] [address] Hillary Zamora MD [address] [place] [address] documented as of this encounter Procedures Procedure Name Priority Date/Time Associated Diagnosis Comments GLUCOSE, WHOLE BLOOD Routine 01/07/2025 1:17 PM EST CBC WITH AUTO DIFFERENTIAL Routine 01/07/2025 12:17 PM EST BASIC METABOLIC PANEL Routine 01/07/2025 12:17 PM EST documented in this encounter Results * (ABNORMAL) Glucose, Whole Blood (01/07/2025 1:17 PM EST) Glucose, Whole Blood 188(H) 60 - 115 mg/dL [facility] Comment:METER #: [id number] Testing performed in the Endocrinology Department [address] , [address], [facility]. 01/07/2025 1:17 PM EST 01/07/2025 1:34 PM EST Generic External Data Provider LAB BLOOD ORDERAB LES Final Result Performing Organization Address [facility] de Phone Number [facility] [address] [place] [phone] * (ABNORMAL) Basic Metabolic Panel (01/07/2025 12:17 PM EST) [facility] Sodium 140 135 - 145 mmol/L [facility] Potassium 4.6 3.3 - 5.1 mmol/L [facility] Chloride 105 96 - 108 mmol/L [facility] Carbon Dioxide 29 22 - 29 mmol/L [facility] Anion Gap 11(L) 12 - 20 [facility] Urea Nitrogen (BUN) 11 9 - 16 mg/dL [facility] Creatinine, Serum 0.69 0.5 - 1.4 mg/dL [facility] Estimated Glomerular Filt Rate >60 [facility] Comment:Chronic Kidney Disea se: Estimated GFR < 60 mL/min/1.46o9Rtycrr Kidney Disease: Estimated GFR < 15 mL/min/1.73m2 Glucose 187(H) 60 - 115 mg/dL [facility] Calcium 9.5 8.4 - 10.2 mg/dL [facility] 01/07/2025 12:1 7 PM EST 01/07/2025 12:17 PM EST Generic External Data Provider LAB BLOOD ORDERAB LES Final Result Performing Organization Address [facility] Co de Phone Number [facility] [address] [place] [phone] * (ABNORMAL) CBC auto differential (01/07/2025 12:17 PM EST) [facility] White Blood Count 4.5(L) 4.8 - 10.8 X10*3/uL [facility] Red Blood Count 4.43(L) 4.60 - 5.80 X10*6/uL [facility] Hemoglobin 14.4 14.0 - 18.0 g/dl [facility] Hematocrit 42.6 42.0 - 52.0 % [facility] Mean Corpuscular Volume 96.2 80.0 - 98.0 fL [facility] Mean Corpuscular Hemoglobin 32.5 27.0 - 33.0 pg [facility] Mean Corpuscular HGB Conc 33.8 31.0 - 36.0 g/dl [facility] Red Cell Distribution Width 13.2 11.0 - 16.0 % [facility] Platelet Count 173 160 - 400 X10*3/uL [facility] Mean Platelet Volume 9.5 9.4 - 12.4 fL [facility] Neutrophils Percent Auto 46.4 45 - 73 % [facility] Imm Gran Pct Auto 0.0 0.0 - 0.4 % [facility] Lymphocytes Percent Auto 42.5(H) 20 - 40 % [facility] Monocytes Percent Auto 8.7 2 - 11 % [facility] Eosinophils Percent Auto 2.0 0 - 4 % [facility] Basophils Percent Auto 0.4 0 - 2 % [facility] NRBC Pct Auto 0.0 0.0 - 0.2 /100WBC [facility] Neutrophils Absolute Auto 2.1 2.0 - 8.3 x10*3/uL [facility] Imm Gran Abs Auto 0.00 0.00 - 0.03 X10*3/uL [facility] Lymphocytes Absolute Auto 1.9 1.2 - 4.9 X10*3/uL [facility] Monocytes Absolute Auto 0.4 0.1 - 1.2 X10*3/uL [facility] Eosinophils Absolute Auto 0.1 0.0 - 0.4 X10*3/uL [facility] Basophils Absolute Auto 0.0 0.0 - 0.2 X10*3/uL [facility] NRBC Abs Auto 0.000 0.0 - 0.012 X10*3/uL [facility] 01/07/2025 12:1 7 PM EST 01/07/2025 12:17 PM EST us Generic External Data Provider LAB BLOOD ORDERAB LES Final Result [facility] [address] [place] [phone] documented in this encounter Visit Diagnoses Not on filedocumented in this encounter Additional Health Concerns Assessment Noted Time PHQ-9 Depression Total Score: 0 12/04/19 8:51 AM EDT documented as of this encounter Care Teams Exercise Science Instructor Relationship Specialty Start Date End Date Hillary Zamora MD [address] [place] [address] PCP - General Family Medicine 03/07/18 Orlando Warner MD [address] [place] [address] Endocrinology 03/29/24 Layla Marrufo NP [address] [place] [address] Urology 04/05/24 Meri Mauricio OD [address] [place] [address] Optometry 04/17/24 Matias Marcelino MD [address] 3rd [place] [address] Cardiology 09/06/24 Teetee Zacarias CUSTOM TAILOR APPRENTICE Endocrinology 03/29/24 documented as of this encounter
--- OUTSIDE RECORDS SUMMARY | 2025-01-07 15:14 | XMS_ITS | Clinical Summary ---
Author Organization [employer] Address [address] [facility] [address] [place] [address] Care Team Providers Care Life Agent Name Role Phone Hillary Zamora MD Primary Care Provider [phone] Orlando Warner MD Unavailable [phone] Layla Marrufo NP Unavailable Meri Mauricio [...] hyperglycemia, with long-term current use of insulin ([facility]) Take by mouth. A ctive sotalol (Betapace) 80 MG tabletIndicatio ns:Chronic atrial fibrillation (CMS/HCC) ([facility]) Take by mouth. Active ezetimibe (Zetia) 10 MG tabletIndicatio ns:Dyslipidemia Take 10 mg by mouth Once per day. Active lisinopril 5 MG tabletIndicatio ns:Primary hypertension Take by mouth Once per day. Active Tirzepatide (Mounjaro) 2.5 MG/0.5ML solution auto-injectorIn dications:Type 2 diabetes mellitus with hyperglycemia, with long-term current use of insulin ([facility]) Inject under the skin. Active tamsulosin (Flomax) [...] 150 MG capsuleIndicati ons:Chronic atrial fibrillation (CMS/HCC) ([facility]) TAKE 1 CAPSULE BY MOUTH TWICE DAILY IN THE MORNING AND IN THE EVENING 60 capsule 5 025 Active FREESTYLE LITE test stripIndication s:Type 2 diabetes mellitus with hyperglycemia, with long-term current use of insulin ([facility]) TEST BLOOD SUGAR SIX TIMES DAILY DIRECTED [...] migh t be different from the original. [facility] Author: Lizz, member services number [phone], provider services line, , option 4 Video Game Technician Agency: [employer] [facility] Problem Noted Date Diagnosed Date Cord [...] procedure -he is scheduled to see the casting supervisor September 07, 2023 -he is scheduled for [...] procedure -he is scheduled to see the casting supervisor September 07, 2023 -he is scheduled for [...] procedure -he is scheduled to see the casting supervisor September 07, 2023 -he is scheduled for [...] Urinary hesitancy 09/02/2023 Overview (12/03/2024): -seen by [facility] 10/27/23 -tamulsosin 0.4 started 10/27/23 and [...] rate control. -He was referred back to clinical trials specialist 01/2021 -Pt seen cardiology 10/2021 with [...] discontinued. -Followed by Dr. Matias Marcelino of [facility], note from 09/04/24 reviewed, was [...] rate control. -He was referred back to clinical trials specialist 01/2021 -Pt seen cardiology 10/2021 with [...] discontinued. -Followed by Dr. Matias Marcelino of [facility], note from 09/04/24 reviewed, was [...] rate control. -He was referred back to clinical trials specialist 01/2021 -Pt seen cardiology 10/2021 with [...] discontinued. -Followed by Dr. Matias Marcelino of [facility] -Saw Evonne Gillespie NP 01/21/2023 [...] rate control. -He was referred back to clinical trials specialist 01/2021 -Pt seen cardiology 10/2021 with [...] discontinued. -Followed by Dr. Matias Marcelino of [facility] -Saw Evonne Gillespie NP 01/21/2023 [...] rate control. -He was referred back to clinical trials specialist 01/2021 -Pt seen cardiology 10/2021 with [...] discontinued. -Followed by Dr. Matias Marcelino of [facility] -Saw Evonne Glilespie NP 01/21/2023 -continue Sotolol 120 mg 2 [...] been asymptomatic. He was referred back to clinical trials specialist 01/2021 He is awaiting a new [...] Vernon last seen 06/22/2022 -dental home is [facility] proxy filed 12/03/24 Assessment & Plan (12/03/2024 10:01 AM EDT): -next comprehensive annual evaluation due after 12/03/25 -eye care facilitated by James Vernon last seen 06/22/2022 -dental home is [facility] -[facility] care proxy filed 12/03/24 Assessment & Plan (09/02/2023 10:25 AM EDT): -next physical exam due after 01/25/2024 -eye care facilitated by [facility] last seen 06/22/2022 -dental [...] ,diastolic dysfunction indeterminate -continue to f with casting supervisor Cardiomyopathy 03/29/2022 Overview (12/03/2024): Possibly due to [...] (12/03/2024): Diabetes is not controlled. Followed by [employer], Dr. Warner, note from 10/16/24 reviewed -has Dexacom GCM Lab Results Component Value Date HGBA1C 8.4 (A) 12/03/2024 HGBA1C 9.3 (A) 07/18/2024 HGBA1C 9.7 (A) 05/25/2023 - Lab Results Component Value Date CREATININE 0.79 11/12/2024 EGFR >60 11/12/2024 MICROALBCREU TNP 12/07/2023 MICROALBCREU 12.7 10/14/2022 LDLCHOLCAL 77 10/14/2022 -Orlin/Arb: lisinopril 5mg -Statin therapy: atorvastatin 80mg -Diabetic eye exam: 03/21/24 with [facility] -Continue lifestyle modifications -Followed by Dr. Warner engraver -continue Jardiance 25 daily -per Endo 02/06/25 Humulin U500 breakfast 55 units take 80 units if over 200 Supper 55 units take 70 if over 200 -Change Trulicity to Mounjaro and back to Trulicity 4.5 weekly on 09/2024 -Continue Jardiance -ordered repeat routine labs 12/03/24 Assessment & Plan (12/03/2024 10:01 AM EDT): Diabetes is not controlled. Followed by [employer], Dr. Warner, note from 10/16/24 reviewed -has Dexacom GCM Lab Results Component Value Date HGBA1C 8.4 (A) 12/03/2024 HGBA1C 9.3 (A) 07/18/2024 HGBA1C 9.7 (A) 05/25/2023 - Lab Results Component Value Date CREATININE 0.79 11/12/2024 EGFR >60 11/12/2024 MICROALBCREU TNP 12/07/2023 MICROALBCREU 12.7 10/14/2022 LDLCHOLCAL 77 10/14/2022 -Orlin/Arb: lisinopril 5mg -Statin therapy: atorvastatin 80mg -Diabetic eye exam: 03/21/24 with [facility] -Continue lifestyle modifications -Followed by Dr. Warner engraver -continue Jardiance 25 daily -per Endo 02/06/25 [...] EDT): Diabetes is not controlled. Followed by [employer], Dr. Warner -has Dexacom GCM Lab Results Component Value Date HGBA1C 9.7 (A) 05/25/2023 HGBA1C 9.1 (A) 01/24/2023 HGBA1C 8.9 (A) 08/18/2022 - Lab Results Component Value Date CREATININE 0.81 10/14/2022 EGFR >60 10/14/2022 MICROALBCREU 12.7 10/14/2022 MICROALBCREU TNP 04/06/2022 LDLCHOLCAL 77 10/14/2022 -Orlin/Arb: lisinopril 5mg -Statin therapy: atorvastatin 80mg -Diabetic eye exam: at [facility] with Gopal [place] 06/22/2022 -Diabetic foot exam: -Continue lifestyle modifications -Continue current medications -Followed by Dr. Warner engraver -continue Trulicity 4.5mg weekly -continue Jardiance 25 daily -continue humulin R U 500 0 units tid Assessment & Plan (05/25/2023 10:47 AM EDT): Diabetes is not controlled. Followed by [employer], Dr. Warner -has Dexacom GCM Lab Results Component Value Date HGBA1C 9.1 (A) 01/24/2023 HGBA1C 8.9 (A) 08/18/2022 Lab Results Component Value Date MICROALBUR 13.0 10/14/2022 CREATININE 0.81 10/14/2022 -Seen by endocrinology on 10/12/2022. No changes made. -Changes: None -Orlin/Arb: lisinopril 5mg -Statin therapy: atorvastatin 80mg -Diabetic eye exam: at [facility] with Gopal Madhavi 06/22/2022 -Diabetic foot exam: -Continue lifestyle modifications -Continue current medications -Followed by Dr. Warner engraver -continue Trulicity 4.5mg weekly -continue Jardiance 25 daily -Continue humulin R U 500 0 units tid Assessment & Plan (01/24/2023 12:08 PM EST): Diabetes is not controlled. Followed by [employer], Dr. Warner -has Dexacom GCM Lab Results Component Value Date HGBA1C 9.1 (A) 01/24/2023 HGBA1C 8.9 (A) 08/18/2022 Lab Results Component Value Date MICROALBUR 13.0 10/14/2022 CREATININE 0.81 10/14/2022 -Seen by endocrinology on 10/12/2022. No changes made. -Changes: None -Orlin/Arb: lisinopril 5mg -Statin therapy: atorvastatin 80mg -Diabetic eye exam: at [facility] with Gopal [place] 06/22/2022 -Diabetic foot exam: -Continue lifestyle modifications -Continue current medications -Followed by Dr. Warner engraver -continue Trulicity 4.5mg weekly -continue Jardiance 25 [...] for tx -Will try to refer in [facility] 01/24/2023 Assessment & Plan (12/03/2024 10:01 [...] for tx -Will try to refer in [facility] 01/24/2023 Assessment & Plan (01/24/2023 11:12 AM EST): Does not tolerate CPAP-pt willing to be evaluated again by sleep med and check how can improve use of machine ,explained importance to pt for tx -Will try to refer in [facility] 01/24/2023 Assessment & Plan (08/18/2022 12:01 [...] hb1ac is 8.9-per pt improving following w engraver -last echo in chart 12/2021: ef 50-60%, [...] ablation and after it, clearance from his casting supervisor prior to have eye surgery --I will have this note fax to his eye doctor today -if pt is cleared from his casting supervisor then pt will need to hold on pradaxa the morning of procedure unless indicated differently by his casting supervisor,hold as well PO meds in am of procedure and to use half insuline basal insuline at night prior surgery. Also pt will need to check with his casting supervisor if prior eye surgery will need to hold digoxin and diltiazem if meds are going to be continued after ablation. -I called today as well to his casting supervisor at # [phone] at [facility] and left my phone info to get a call back to discuss with casting supervisor, I also inform pt to discuss w his casting supervisor at his upcoming visit in 2 days [...] Encounters Date Type Department Care Team Description 01/07/2025 Orders Only GENERIC EXTERNAL DATA DEPARTMENT Provider, Generic External Data 01/03/2025 10:00 AM EDT Office Visit [facility] [address] [place] [phone] Suzette Alvares MD Multiple joint pain (Primary Dx) 01/03/2025 Travel 12/19/[address] [address] Hillary Zamora MD 12/12/2024 Orders Only GENERIC EXTERNAL DATA DEPARTMENT Provider, Generic External Data 12/03/2024 9:00 AM EDT Office Visit [address] [address] Hillary Zamora MD Obstructive sleep apnea syndrome [...] health status; Morbid obesity (CMS/HCC) 12/03/2024 Telephone [facility] [address] [place] [address] Hillary Zamora MD [facility] 12/03/2024 Travel 11/30/2024 Telephone [facility] [address] [place] [address] Sheri Rivera [place] 11/12/2024 Orders Only GENERIC EXTERNAL DATA DEPARTMENT Provider, Generic External Data 10/31/2024 Refill [facility] [address] [place] [address] Hillary Zamora MD Type 2 diabetes mellitus with hyperosmolarity, uncontrolled (CMS/[facility]); Dyslipidemia 10/16/2024 Orders Only GENERIC EXTERNAL DATA DEPARTMENT Provider, Generic External Data 10/10/2024 Refill [facility] [address] [place] [address] Hillary Zamora MD Type 2 diabetes mellitus with hyperglycemia, with long-term current use of insulin ([facility]) from Last 3 Months Immunizations Immunization Administration [...] Description 02/04/2025 9:00 AM EST Office Visit [facility] [address], [place] [phone] Hillary Zamora MD [address] [place], [place] [phone] Health Maintenance Due Date Last Done Comments [...] 12/03/2025 12/03/2024 Depression Screening 12/03/2025 12/03/2024, 12/04/19 Diabetes: Foot Exam 12/03/2025 12/03/2024, 12/03/2024, 12/03/2024, Additional history exists Diabetes: Urine Protein Screening 12/03/2025 12/03/2024, 12/07/2023, 10/14/2022, Additional history exists Disability Screening 12/03/2025 12/03/2024 Lipid Panel 12/03/2025 12/03/2024, 10/05, 04/06/2022, Additional history exists SDOH Screening 12/03/2025 12/03/2024 Tobacco Screening 01/03/2026 01/03/2025 Eye Exam 03/21/2026 03/21/2024, 03/07, 03/21/2024, Additional [...] WHOLE BLOOD Routine 01/07/2025 1:17 PM EST BASIC METABOLIC PANEL Routine 01/07/2025 12:17 PM EST CBC WITH AUTO DIFFERENTIAL Routine 01/07/2025 12:17 PM EST PSA, TOTAL Routine 12/12/2024 7:37 AM EDT [...] WHOLE BLOOD Routine 10/16/2024 9:14 AM EDT PROPHYLAXIS - ADULT Routine 06/15/2023 [...] Maintenance Results * (ABNORMAL) Glucose, Whole Blood (01/07/2025 1:17 PM EST) Only the most recent of2 resultswithin the time period is included. Glucose, Whole Blood 188(H) 60 - 115 mg/dL [facility] Comment:METER #: [id number] Testing performed in the Endocrinology Department [address] , [address], [facility]. 01/07/2025 1:17 PM EST 01/07/2025 1:34 PM EST us Generic External Data Provider LAB BLOOD ORDERAB LES Final Result [facility] [address], [place] [phone] * (ABNORMAL) CBC auto differential (01/07/2025 12:17 PM EST) Only the most recent of3 resultswithin the time period is included. Pathologist [facility] White Blood Count 4.5(L) 4.8 - 10.8 X10*3/uL [facility] Red Blood Count 4.43(L) 4.60 - 5.80 X10*6/uL [facility] Hemoglobin 14.4 14.0 - 18.0 g/dl [facility] Hematocrit 42.6 42.0 - 52.0 % [facility] Mean Corpuscular Volume 96.2 80.0 - 98.0 fL [facility] Mean Corpuscular Hemoglobin 32.5 27.0 - 33.0 pg [facility] Mean Corpuscular HGB Conc 33.8 31.0 - 36.0 g/dl [facility] Red Cell Distribution Width 13.2 11.0 - 16.0 % [facility] Platelet Count 173 160 - 400 X10*3/uL [facility] Mean Platelet Volume 9.5 9.4 - 12.4 fL [facility] Neutrophils Percent Auto 46.4 45 - 73 % [facility] Imm Gran Pct Auto 0.0 0.0 - 0.4 % [facility] Lymphocytes Percent Auto 42.5(H) 20 - 40 % [facility] Monocytes Percent Auto 8.7 2 - 11 % [facility] Eosinophils Percent Auto 2.0 0 - 4 % [facility] Basophils Percent Auto 0.4 0 - 2 % [facility] NRBC Pct Auto 0.0 0.0 - 0.2 /100WBC [facility] Neutrophils Absolute Auto 2.1 2.0 - 8.3 x10*3/uL [facility] Imm Gran Abs Auto 0.00 0.00 - 0.03 X10*3/uL [facility] Lymphocytes Absolute Auto 1.9 1.2 - 4.9 X10*3/uL [facility] Monocytes Absolute Auto 0.4 0.1 - 1.2 X10*3/uL [facility] Eosinophils Absolute Auto 0.1 0.0 - 0.4 X10*3/uL [facility] Basophils Absolute Auto 0.0 0.0 - 0.2 X10*3/uL [facility] NRBC Abs Auto 0.000 0.0 - 0.012 X10*3/uL [facility] 01/07/2025 12:1 7 PM EST 01/07/2025 12:17 PM EST us Generic External Data Provider LAB BLOOD ORDERAB LES Final Result [facility] [address] [place] [phone] * (ABNORMAL) Basic Metabolic Panel (01/07/2025 12:17 PM EST) Only the most recent of2 resultswithin the time period is included. Sodium 140 135 - 145 mmol/L [facility] Potassium 4.6 3.3 - 5.1 mmol/L [facility] Chloride 105 96 - 108 mmol/L [facility] Carbon Dioxide 29 22 - 29 mmol/L [facility] Anion Gap 11(L) 12 - 20 [facility] Urea Nitrogen (BUN) 11 9 - 16 mg/dL [facility] Creatinine, Serum 0.69 0.5 - 1.4 mg/dL [facility] Estimated Glomerular Filt Rate >60 [facility] Comment:Chronic Kidney Disea se: Estimated GFR < 60 mL/min/[id number] Kidney Disease: Estimated GFR < 15 mL/min/1.73m2 Glucose 187(H) 60 - 115 mg/dL [facility] Calcium 9.5 8.4 - 10.2 mg/dL [facility] 01/07/2025 12:1 7 PM EST 01/07/2025 12:17 PM EST Generic External Data Provider LAB BLOOD ORDERAB LES Final Result Performing Organization Address [facility]/ZIP Co de Phone Number [facility] [address] [place] [phone] * PSA,Total (12/12/2024 7:37 AM EDT) Prostate Specific Antigen 0.66 <0.05 - 4.0 ng/mL [facility] Comment:PSA methodology: Shashank Thakur i ChemiluminescentMicroparticle Immunoassay (CMIA) 12/12/2024 7:37 AM EDT 12/12/2024 7:37 AM EDT us Generic External Data Provider LAB BLOOD ORDERAB LES Final Result Performing Organization Address [facility]/ZIP Co de Phone Number [facility] [address] [place] [phone] * Vitamin B12 (Cobalamin) and Folate Panel, Serum (12/03/2024 9:41 AM EDT) Vitamin B12 429 200 - 900 pg/mL [facility] Comment:NORMAL 200-900 PG/ML INDETERMINATE 160-199 PG/ML DEFICIENT < 160 PG/ML Folate 10.5 > or = 4.0 ng/mL [facility] Comment:Reference Values:> o r = 4.0 [...] BLOOD ORDERABLES Final Result Performing Organization Address [facility]/ZIP Co de Phone Number [facility] [address] [place] [phone] * TSH with Reflex to Free T4 (12/03/2024 9:41 AM EDT) TSH reflex Free T4 1.62 0.32 - 4.0 uIU/mL [facility] Blood Venous blood specimen / Unknown 12/03/2024 9:41 AM EDT 12/03/2024 11:13 AM EDT Hillary Zamora MD LAB BLOOD ORDERABLES Final Result Performing Organization Address City/[facility] Co de Phone Number [facility] [address] [place] [phone] * Albumin, Random Urine W/Creatinine (12/03/2024 9:41 AM EDT) Creatinine, Urine 49.28 mg/dL [facility] Microalbumin Urine <5.0 mg/L [facility] Microalbum Creatinine Ratio Ur TNP <30 ug/mg cr [facility] Comment:Unable to calculate albumin/creatinine ratio due to lowmicroalbumin or creatinine result. Urine 12/03/2024 9:41 AM EDT 12/03/2024 11:02 AM EDT Hillary Zamora MD LAB URINE ORDERABLES Final Result Performing Organization Address [facility] de Phone Number [facility] [address] [place] [phone] * Iron And Total Iron Binding Capacity (12/03/2024 9:41 AM EDT) Iron 106 45 - 160 mcg/dL [facility] Total Iron Binding Capacity 280 228 - 428 mcg/dL [facility] Percent Iron Saturation 38 15 - 50 % [facility] Unsaturated Iron Binding 174 ug/dL [facility] Blood Venous blood specimen / Unknown 12/03/2024 9:41 AM EDT 12/03/2024 11:13 AM EDT Hillary Zamora MD LAB BLOOD ORDERABLES Final Result Performing Organization Address [facility] Co de Phone Number [facility] [address] [place] [phone] * Ferritin (12/03/2024 9:41 AM EDT) Pathologist [facility] Ferritin 148 20 - 250 ng/mL [facility] Blood Venous blood specimen / Unknown 12/03/2024 9:41 AM EDT 12/03/2024 11:13 AM EDT Hillray Zamora MD LAB BLOOD ORDERABLES Final Result Performing Organization Address [facility] de Phone Number [facility] [address] [place] [phone] * CEA (12/03/2024 9:41 AM EDT) Carcinoembryonic Antigen <1.73 ng/mL [facility] Comment:CEA Reference Range: 93.4% Non-Smokers = [...] BLOOD ORDERABLES Final Result Performing Organization Address City/[facility]/ZIP Co de Phone Number [facility] [address] [place] [phone] * Hepatic Function Panel (12/03/2024 9:41 AM EDT) Bilirubin, Total 0.5 0.0 - 1.0 mg/dL [facility] Bilirubin, Direct 0.2 0.0 - 0.5 mg/dL [facility] Aspartate Amino Transferase 32 5 - 37 U/L [facility] Alanine Aminotransferase 35 0 - 40 U/L [facility] Total Protein 6.9 6.5 - 8.0 g/dL [facility] Albumin Level 4.4 3.5 - 5.0 g/dL [facility] Alkaline Phosphatase 85 39 - 117 U/L [facility] Blood Venous blood specimen / Unknown 12/03/2024 9:41 AM EDT 12/03/2024 11:13 AM EDT Hillary Zamora MD LAB BLOOD ORDERABLES Final Result Performing Organization Address [facility] Co de Phone Number [facility] [address] [place] [phone] * (ABNORMAL) Lipid Panel, Standard (12/03/2024 9:41 AM EDT) Triglycerides 80 <150 mg/dL [facility] Comment:Desirable Triglyceri de: less than 150 mg/dLBorderline High Triglyceride 150-199 mg/dLHigh Triglyceride: 200-499 mg/dLVery High Triglyceride: greater than or equal to 5OO mg/dL Cholesterol 97 <200 mg/dL [facility] Comment:Desirable Cholestero l: less than 200 mg/dLBorderline High Cholesterol: 200-239 mg/dLHigh Cholesterol: greater than 239 mg/dL LDL Cholesterol Calculated 49 <100 mg/dL [facility] Comment:Desirable LDL: less than 100 mg/dLNear Optimal/Above Optimal LDL: 110- 129 mg/dLBorderline High LDL: 130-159 mg/dLHigh LDL: 160-189 mg/dLVery High LDL: greater than or equal to 190 mg/dL HDL Cholesterol 32(L) >40 mg/dL [facility] Comment:Desirable HDL: great er than 40 mg/dL Note: This HDL assay may give artificially low results in patients with liver disease. Blood Venous blood specimen / Unknown 12/03/2024 9:41 AM EDT 12/03/2024 11:13 AM EDT Hillary Zamora MD LAB BLOOD ORDERABLES Final Result [facility] [address] [place] [phone] * (ABNORMAL) POCT glucose manually resulted (12/03/2024 9:00 AM EDT) Glucose Blood, POC 278(A) 60 - 200 mg/dL [employer] Lot # [id number] Lot# Expiration Date ,142,703 Blood Capillary blood specimen / Unknown 12/03/2024 9:00 AM EDT Hillary Zamora MD POINT OF CARE TEST ENTER/E DIT ORDERABLES Final Result * (ABNORMAL) POCT glycosylated hemoglobin (Hgb A1c) (12/03/2024 8:58 AM EDT) Hemoglobin A1C 8.4(A) 4.0 - 5.7 % QC Media Lot # [id number] Lot# Expiration Date ,571,748 Blood Capillary blood specimen / Unknown 12/03/2024 8:58 AM EDT Hillary Zamora MD POINT OF CARE TEST ENTER/E DIT ORDERABLES Edited Result - Final * XR Ribs 3 Views Right with Chest 1 View (11/12/2024 1:30 PM EDT) Anatomical Region Laterality Modality Radiographic Claire ging 11/12/2024 1:30 PM EDT Narrative 11/12/2024 1:49 PM EDT [address] [address] XRay Report Signed Patient: Abraham Hoover MR#: [id number] : 1965 Acct:[id number] Age/Sex: 59 / M ADM Date: 11/12/24 Loc: .ED Attending Dr: Ordering Physician: Juan Carlos Patricio DO Date of Service: 11/12/24 Procedure(s): XR ribs RT min 3V w CXR1V Accession Number(s): [id number] cc: Hillary Zamora MD; Juan Carlos Patricio [...] OV> 11/12/24 1347 DD/ 1330 TD/TT: 11/12/24 133 Labor Conciliator: Procedure Note Donotuseinterpreter, Image - 11/12/[address] [address] XRay Report Signed Patient: Hoang HooveroMR#: [id number] : 1965Acct:[id number] Age/Sex: 59 / MADM Date: 11/12/24 Loc: HO.ED Attending Dr: Ordering Physician: Juan Carlos Patricio DO Date of Service: 11/12/24 Procedure(s): XR ribs RT min 3V w CXR1V Accession Number(s): [id number] cc: Hillary Zamora MD; Juan Carlos Patricio [...] OV> 11/12/24 1347 DD/ 1330 TD/TT: 11/12/24 133 Labor Conciliator: [facility] External Provider IMG XR PROCEDURES Edited Result - Final * CT Cervical Spine w/o Contrast (11/12/2024 12:56 PM EDT) Anatomical Region Laterality Modality Spine, C-spine Computed Tomogra phy 11/12/2024 12:5 6 PM EDT Narrative 11/12/2024 1:30 PM EDT [place] [address] [address] Scan Report Signed Patient: Abraham Hoover MR#: [id number] : 1965 Acct:[id number] Age/Sex: 59 / M ADM Date: 11/12/24 Loc: HO.ED Attending Dr: Ordering Physician: Farhana Silverman Date of Service: 11/12/24 Procedure(s): CT cervical spine wo IV con Accession Number(s): [id number] cc: Hillary Zamora MD; Farhana Silverman Report Number: [id number]: Total DLP = 531.00 mGy-cm Reason for [...] 11/12/24 1327 DD/ 1256 TD/TT: 11/12/24 1305 Labor Conciliator: Procedure Note Donotuseinterpreter, Image - 11/12/[address] [place] [address] [address] Scan Report Signed Patient: Vicente Ansari OtilioMR#: [id number] : 1965Acct:[id number] Age/Sex: 59 / MADM Date: 11/12/24 Loc: HO.ED Attending Dr: Ordering Physician: Farhana Silverman Date of Service: 11/12/24 Procedure(s): CT cervical spine wo IV con Accession Number(s): [id number] cc: Hillary Zamora MD; Farhana Silverman Report Number: [id number]: Total DLP = 531.00 mGy-cm Reason for [...] 11/12/24 1327 DD/ 1256 TD/TT: 11/12/24 1305 Labor Conciliator: [facility] External Provider IMG CT PROCEDURES Edited Result - Final * CT Head w/o Contrast (11/12/2024 12:56 PM EDT) Anatomical Region Laterality Modality Head, Neck Computed Tomogra phy 11/12/2024 12:5 6 PM EDT Narrative 11/12/2024 1:28 PM EDT [place] [address] CT Scan Report Signed Patient: Abraham Hoover MR#: [id number] : 1965 Acct:[id number] Age/Sex: 59 / M ADM Date: 11/12/24 Loc: HO.ED Attending Dr: Ordering Physician: Farhana Silverman Date of Service: 11/12/24 Procedure(s): CT head/brain wo IV con Accession Number(s): [id number] cc: Hillary Zamora MD; Farhana Silverman Report Number: [id number]: Total DLP = 732.00 mGy-cm Reason for [...] 11/12/24 1326 DD/ 1256 TD/TT: 11/12/24 1305 Labor Conciliator: Procedure Note Donotuseinterpreter, Image - 11/12/[address] [address] [address] Scan Report Signed Patient: Hoang HooveroMShilpi#: [id number] : 1965Acct:[id number] Age/Sex: 59 / MADM Date: 11/12/24 Loc: HO.ED Attending Dr: Ordering Physician: Farhana Silverman Date of Service: 11/12/24 Procedure(s): CT head/brain wo IV con Accession Number(s): [id number] cc: Hillary Zamora MD; Farhana Silverman Report Number: [id number]: Total DLP = 732.00 mGy-cm Reason for [...] 11/12/24 1326 DD/ 1256 TD/TT: 11/12/24 1305 Labor Conciliator: us [facility] External Provider IMG CT PROCEDURES Edited Result - Final * (ABNORMAL) Prothrombin Time-INR (11/12/2024 12:30 PM EDT) Prothrombin Time 14.6(H) 10.9 - 12.4 SEC [facility] INTERNATIONAL NORM RATIO 1.3(H) 0.9 - 1.1 [facility] Comment:INTERNATIONAL NORMAL IZED RATIO (INR) REFERENCE [...] Provider LAB BLOOD ORDERAB LES Final Result [facility] [address] [place] [address] [phone] * (ABNORMAL) Comprehensive Metabolic Panel (11/12/2024 12:30 PM EDT) Pathologist [facility] Sodium 141 135 - 145 mmol/L [facility] Potassium 4.6 3.3 - 5.1 mmol/L [facility] Chloride 108 96 - 108 mmol/L [facility] Carbon Dioxide 25 22 - 29 mmol/L [facility] Anion Gap 13 12 - 20 [facility] Urea Nitrogen (BUN) 11 9 - 16 mg/dL [facility] Creatinine, Serum 0.79 0.5 - 1.4 mg/dL [facility] Creatinine Clr Calc Pharmacy 107.7 [facility] Comment:eGFR (calculated fro m the MDRD study equation) and eCrCl(calculated from the Cockcroft-Gault equation) are based ondifferent parameters and may not yield comparable results.If eCrCl result is absurd, please check patient'sheight/weight. Estimated Glomerular Filt Rate >60 [facility] Comment:Chronic Kidney Disea se: Estimated GFR < 60 mL/min/1.77d4Mlzevc Kidney Disease: Estimated GFR < 15 mL/min/1.73m2 Glucose 173(H) 60 - 115 mg/dL [facility] Calcium 9.2 8.4 - 10.2 mg/dL [facility] Bilirubin, Total 0.7 0.0 - 1.0 mg/dL [facility] Aspartate Amino Transferase 27 5 - 37 U/L [facility] Alanine Aminotransferase 29 0 - 40 U/L [facility] Total Protein 6.5 6.5 - 8.0 g/dL [facility] Albumin Level 4.2 3.5 - 5.0 g/dL [facility] Alkaline Phosphatase 60 39 - 117 U/L [facility] 11/12/2024 12:3 0 PM EDT 11/12/2024 12:32 PM EDT us Generic External Data Provider LAB BLOOD ORDERAB LES Final Result [facility] [address] [place] [phone] * (ABNORMAL) Cologuard?? colon cancer screening (02/07/2023 7:30 AM EST) Cologuard Result Positive( A) Negative 02/15/2023 9:47 AM EST [facility] (CLIA #:[id number]) Comment: POSITIVE TEST RESULT. A positive Cologuard [...] (Fabiano Ross al, N Engl J Med 2014;370(14):9892-8686.) Cologuard may produce a false negative or false positive result (no colorectal cancer or precancerous polyp present at colonoscopy follow up). A negative Cologuard test result does not guarantee the absence of CRC or advanced adenoma (pre-cancer). The current Cologuard screening interval is every 3 years. ([place] [employer] and U.S. Multi-Society Task Force). Cologuard performance data in a 10,000 patient pivotal study using colonoscopy as the reference method can be accessed at the following location: www.[employer]/results. Additional description of the Cologuard test process, warnings and precautions can be found at [email or web address]. Stool specimen (specimen) 02/07/2023 7:30 AM EST 02/08/2023 3:13 PM EST us Hillary Zamora MD LAB MOLECULAR DIAGNOSTICS ORDERABLES Final Result [facility] (CLIA #:[id number]) [place] [address], * Hepatitis C Antibody Reflex (10/14/2022 11:04 AM EDT) Hepatitis C Antibody Nonreactive Nonreactive [facility] Comment:Antibodies to HCV no t detected; does not exclude early acuteHCV infection. 10/14/2022 11:0 4 AM EDT 10/14/2022 12:57 PM EDT Hillary Zamora MD LAB BLOOD ORDERABLES Final Result Performing Organization Address [facility]/ZIP Co de Phone Number [facility] [address] [place] [phone] * HIV Ab/Ag ([facility]) (10/14/2022 11:04 AM EDT) HIV AB/AG Nonreactive Nonreactive [facility] Comment:HIV-1 p24 Ag and/or HIV-1/HIV-2 Ab not detected.A test result that is nonreactive does not exclude thepossibility of exposure to or infection with HIV-1 and/orHIV-2. Nonreactive results in this assay for individualswith prior exposure to HIV-1 and/or HIV-2 may be due toantigen and antibody levels that are below the limit ofdetection of this assay.[employer] HIV Ag/Ab Combo assay result andsupplemental assay results should be interpreted inconjunction with the patient's clinical presentation,history and other laboratory results. If the results areinconsistent with clinical evidence, additional testing issuggested to confirm the result. 10/14/2022 11:0 4 AM EDT 10/14/2022 12:57 PM EDT us Hillary Zamora MD LAB BLOOD ORDERABLES Final Result Performing Organization Address 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 Advance Directives and Living Will 12/04/2024 Health Care Proxy 12/03/24 Care Teams Life Agent Relationship Specialty Start Date End Date Hillray Zamora MD [address] [place] [address] PCP - General Family Medicine 03/07/18 Orlando Warner MD [address] [place] [address] Endocrinology 03/29/24 Layla Marrufo NP [address] [place] [address] Urology 04/05/24 Meri Mauricio OD [address] [place] [address] Optometry 04/17/24 Maitas Marcelino MD [address] [place] [address] Cardiology 09/06/24 Teetee Zacarias MANAGEMENT ACCOUNTS MANAGER Endocrinology 03/29/24
== END 2025-01-07 11:59 | disposition home or self-care (01) ==
LOC: HO.LAB 11:58
PROVIDERS: PCP Family Medicine; Visit Provider Internal Medicine
DX: E11.65 Type 2 diabetes mellitus with hyperglycemia (principal); E11.21 Type 2 diabetes mellitus with diabetic nephropathy; Z79.4 Long term (current) use of insulin; Z79.85 Long-term (current) use of injectable non-insulin antidiabetic drugs; Z79.84 Long term (current) use of oral hypoglycemic drugs
CPT/HCPCS: 36415; 80048; 82947; 83036; 85025; 99212

== ENCOUNTER 2025-01-07 13:02 | Outpatient (AMB) | payer OTHER, SELFPAY ==
--- NOTE | 2025-01-07 13:07 | A.OFFVIS_ITS ---
Vital Signs 01/07/25 13:11 Height 6 ft Weight 196 lb 13.965 oz BMI 26.7 BP 92/58 L Blood Pressure Location Rt brachial Position Sitting Pulse 72 Pulse Source Pulse Oximeter Pulse Oximetry (%) 96 Oxygen Delivery Method Room Air Intake Visit Reasons: T2DM Intake Note: Patient present today to follow up on Type 2 Diabetes Mellitus. Patient receives Dexcom G7 supplies through: [employer] Last Diabetic Eye exam: Due, has an appointment coming up. Last Podiatry Visit: Missed appointment, needs to reschedule. Random Glucose: 188 mg/dl HgA1C: 8.5% 01/07/2025 Log Washer Required: No Accompanied by: Self / Same As Patient Allergies Penicillins (PENICILLINS) Allergy (Unknown, Verified 01/07/25 13:12) UNKNOWN metformin Adverse Reaction (Unknown, Verified 01/07/25 13:12) diarrhea HPI Comments Details: Patient is 58-year-old male with DM type 2 diagnosed 2006, who presents for management of diabetes. pidemia, HTN, CLAUDIA on BIPAP, h/o low Vit D, depression, OA.. Micro and macrovascular complications: Nephropathy Patient previously intolerant to metformin. Intolerant of Jardiance due to yeast infection. Actos was stopped few years ago he has mild decrease ejection fraction. Diabetes medications: Humulin U 500 55 units for breakfast 55 units for lunch and 85 units for dinner 3 Xa day if >200, Trulicity 4.5 mg Qwkly , Jardiance 25 mg daily. Admits to non-compliance with insulin. Took Mounjaro but had too much wt loss Dexcom download shows he is using the sensor 91% of the time. Average glucose is 182 with G mi of 7.7%. Standard deviation is 38 with coefficient of variation 20.6 %. 53% of the blood sugars are in range with 47% hyperglycemia and no hypoglycemia. Pen shows persistent hyperglycemia throughout the day without any spikes and post-prandial blood sugars Symptoms reported: denies numbness, tingling, cramping in lower extremities Hypoglycemia: rare Exercise: not walking as much . 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 Hypertension Dyslipidemia Obesity Diabetes type 2, uncontrolled Paroxysmal A-fib Surgical History History of radiofrequency ablation procedure for cardiac arrhythmia Hx of colonoscopy Family History Father Cancer Diabetes CVD (cardiovascular disease) Mother Diabetes Social History Household Members: None Household Members Other:: Alcohol intake: never Patient Tobacco Use Status: Former Tobacco user Substance Use Type: Crack/Cocaine and Marijuana Current occupational status: disabled Current occupation: left handed Physical Exam Vital Signs: Last Vital Signs Pulse 72 01/07/25 13:11 BP 92/58 L 01/07/25 13:11 Pulse Ox 96 01/07/25 13:11 Oxygen Delivery Method Room Air 01/07/25 13:11 BMI result Body Mass Index 26.7 Absence of Cushingoid features. Absence of acromegalic features. Neck exam reveals nl size thyroid about 15 gms. No thyroid nodules palpable. No carotid bruits present. Lungs CTA. Heart S1 S2, Reg R/R. No M/R/ G. Skin exam reveals absence of vitiligo or acanthosis nigricans. Abdominal exam reveals Soft NT/ND with NA BS. No organomegaly present. Neck Other: . Extrem Other: Visual exam of foot performed. No ulcerations or open lesions. No onchomycosis, no callouses.Pulses 2 + distally Sensation intact to monofilament exam. Vibratory sensation sensed is i decreased with 128 Hz tuning fork Results AMB Hemoglobin A1c AMB Hemoglobin A1c 8.5 % Last Edit by ANGIE Rader on 01/07/25 13:34 Assessment & Plan Assessment & Plan (1) Diabetes type 2, uncontrolled: Code(s): E11.65 - Type 2 diabetes mellitus with hyperglycemia Category: Medical Qualifiers: Glycemic state: with hyperglycemia Qualified Code(s): E11.65 - Type 2 diabetes mellitus with hyperglycemia Plan: This is a 56-year-old male with a history of type 2 diabetes being treated with Trulicity, Jardiance and U-500 insulin with fair but improved glycemic control and known microvascular complications namely nephropathy. The plan is to increase the U-500 to 65 units before breakfast, 65 units before lunch 80 units before dinner. We will have the patient follow-up with the extension educator. If glycemic control is still not obtained, could also consider the idea of using of either the U-500 insulin or U 100 in insulin pump either Medtronic or tandem. Re-referred patient to podiatry Orders: Orders AMB Hemoglobin A1c Today E11.65 - Type 2 diabetes mellitus with hyperglycemia Referrals Podiatry Referral E11.65 - Type 2 diabetes mellitus with hyperglycemia Medications: Changed From insulin regular hum U-500 conc (Humulin R U-500 (Conc) Insulin Kwikpen) Breakfast 55 units, 80 units if over 200 supper 55 units, 70 units if over 200 subcutaneously 2 times a day; 30 days 12 mL 2RF E11.65 - Type 2 diabetes mellitus with hyperglycemia To insulin regular hum U-500 conc (Humulin R U-500 (Conc) Insulin Kwikpen) Breakfast 65 units , lunch 65 units and 80 units before dinner 12 mL 2RF 30 days E11.65 - Type 2 diabetes mellitus with hyperglycemia Coding Level of Care Code Est Pt Level 4 (18475) Complex EM visit Add On G2211 Diagnoses Uncontrolled type 2 diabetes mellitus with hyperglycemia E11.65 Glycemic state: with hyperglycemia
[2025-01-07 13:11] VITALS: BP 92/58; PULSE 72; O2SAT 96; BMI 26.7
[2025-01-07 13:34] LABS: Glucose, Whole Blood 188 mg/dL (60-115)
== END 2025-01-07 13:33 | disposition home or self-care (01) ==
LOC: HO.ENCR 13:02
PROVIDERS: PCP Family Medicine; Visit Provider Internal Medicine Endocrinology, Diabetes & Metabolism
DX: E11.65 Type 2 diabetes mellitus with hyperglycemia (principal)
CPT/HCPCS: 99214; G2211

== ENCOUNTER 2025-02-04 09:38 | Outpatient (REF) | payer OTHER, SELFPAY ==
--- OUTSIDE RECORDS SUMMARY | 2025-02-04 09:00 | XMS_ITS | Encounter Summary ---
Author Organization [employer] Address [address] [place] [address] Care Team Providers Care Bulk Plant Supervisor Name Role Phone Hillary Zamora MD Primary Care Provider [phone] Orlando Warner MD Unavailable Layla Marrufo NP Unavailable Meri Mauricio OD Unavailable [phone] Matias Marcelino MD Unavailable [phone] Reason for Referral * Consultation (Routine) - Pending Review Specialty Diagnoses / Procedures Referred By Evangelista t Referred To Contact Neurology Diagnoses Memory loss Hillary Zamora MD [address] [place] [id number] Phone: tel: fax: Referral ID Status Reason Start Date Expiration Date Visits Requested Visits Authorized [id number] Pending Review Specialty Services Required 02/04/2025 02/04/2026 1 1 Reason for Visit * Reason Comments Follow-up Encounter Details Date Type Department Care Team (Late st Contact Info) Description 02/04/2025 9:00 AM EST Office Visit [facility] [address] [place] [address] [phone] Hillary Zamora MD [address] [place] [address] [phone] Memory loss (Primary Dx); Type 2 diabetes mellitus with diabetic polyneuropathy, with long-term current use of insulin (HCC); Weight loss; Loss of appetite; Positive colorectal cancer screening using Cologuard test; Unintentional weight loss Social History Tobacco Use Types Packs/Day Years [...] AM EDT documented as of this encounter Last Filed Vital Signs Vital Sign Reading Time Taken Comments Blood Pressure 106/62 02/04/2025 9:06 AM EST Pulse 81 02/04/2025 9:06 AM EST Temperature 37.2 C (98.9 F) 02/04/2025 9:06 AM EST Respiratory Rate 20 02/04/2025 9:06 AM EST Oxygen Saturation 97% 02/04/2025 9:06 AM EST Inhaled Oxygen Concentration - - Weight 85.3 kg (188 lb) 02/04/2025 9:06 AM EST Height 182.9 cm (6') 02/04/2025 9:06 AM EST Body Mass Index 25.5 02/04/2025 9:06 AM EST documented in this encounter Progress Notes * Hillary Zamora MD - 02/04/2025 9:00 AM EST Nicol Rosario is a 59 y.o. male past medical history of of cardiomyopathy, type 2 diabetes, positive Cologuard in Feb 2023, dyslipidemia, hypertension, obstructive sleep apnea syndrome, tremor, chronic artial fibrillation (s/p ablation 01/2025), who presents to the office today for follow up unintentional weight loss and loss of appetite as well as memory issues. Interim history: Last PCP visit 12/03/24 for annual exam. Current concerns: Weight loss Pt reports he has been losing weight unintentionally. From 2019 to 2023 he lost 26 lbs slowly but had been working on lifestyle changes. From Mar 2023 to today he has lost an additional 82 lbs. Currently 82 lb weight loss since March 2024. Mounjaro was started in Mar 2024 and weight loss attributed to that. He has been off Mounjaro since 09/2024 due to weight lass and was started on Trulicity. He continues to loss weight with the medicinae change. notes he has even stopped his Monjouro and continues to loose weight. He had a positive Cologuard Feb 2023 but needed cardiac clearance before proceeding with colonoscopy. We will call cardiology 02/04/25 to check on status of clearance as he had another ablation for his atrial fibrillation 01/2025. He has appointment with [facility] 02/26/25 at 11:30.His father had a history of colon cancer. Most recent cardiology note from 12/27/24 Discussed the patient's recurrent atrial fibrillation andthe upcoming ablation procedure scheduled for January 17. Memory: Pt first reported memory concerns He states he forgets things minutes after the happen. His Mother was Dx with Alzheimer's. 10/14/2022. He continued to reports memory issues off and on in the setting of multiple other somatic complaints. Today 02/04/25 he did not remember our discussion about the importance of his colonoscopy.; He states he did not know about his appointment with me but got a text this morning and was not aware of his upcomming GI appointment. I had set him for mor mini mental status exam but he did not come. He is A and O x 32 today and agrees to neurology referral and return for MOCA later in the week. Social History Tobacco: denied Drugs: none Alcohol: No Sexuality: Denies current sexual activity Suicide/Depression: The patient denies any present symptoms of depression or anxiety. Review of Systems Constitutional: Positive for fatigue and unexpected weight change. Negative for fever. Respiratory: Negative for cough and shortness of breath. Cardiovascular: Negative for chest pain. Gastrointestinal: Negative for abdominal pain. Genitourinary: Negative for difficulty urinating. Neurological: Negative for syncope. Current Medications[1] Allergies[2] Medical History[3] Surgical History[4] Family History[5] Objective Visit Vitals BP 106/62 (BP Location: Left arm, Patient Position: Sitting, BP Cuff Size: Adult) Pulse 81 Temp 98.9 ??F (37.2 ??C) (Oral) Resp 20 Ht 6' (1.829 m) Wt 188 lb (85.3 kg) SpO2 97% BMI 25.50 kg/m?? Smoking Status Former BSA 2.08 m?? Physical Exam Constitutional: Appearance: Normal appearance. HENT: Right Ear: Tympanic membrane normal. Left Ear: Tympanic membrane normal. Nose: Nose normal. Mouth/Throat: Pharynx: Oropharynx is clear. Eyes: Extraocular Movements: Extraocular movements intact. Pupils: Pupils are equal, round, and reactive to light. Cardiovascular: Rate and Rhythm: Normal rate. Rhythm irregular. Pulses: Dorsalis pedis pulses are 2+ on the right side and 2+ on the left side. Heart sounds: Normal heart sounds. Pulmonary: Effort: Pulmonary effort is normal. Breath sounds: Normal breath sounds. No wheezing. Abdominal: General: Abdomen is flat. Palpations: Abdomen is soft. Tenderness: There is no abdominal tenderness. Comments: CGM in place. Musculoskeletal: General: Normal range of motion. Right foot: No deformity or Charcot foot. Left foot: No deformity or Charcot foot. Feet: Right foot: Protective Sensation: 5 sites tested. 5 sites sensed. Skin integrity: Skin integrity normal. Toenail Condition: Right toenails are normal. Left foot: Protective Sensation: 5 sites tested. 5 sites sensed. Skin integrity: Skin integrity normal. Toenail Condition: Left toenails are normal. Lymphadenopathy: Lower Body: No right inguinal adenopathy. No left inguinal adenopathy. Skin: General: Skin is warm and dry. Neurological: General: No focal deficit present. Mental Status: He is alert. Psychiatric: Mood and Affect: Mood normal. Behavior: Behavior normal. 59 y.o. male annual evaluation. Assessment & Plan Memory loss Pt concerned with memory loss first reported 10/2022 and has continue dot be concerned about this. His mother had Alzheimer dementia. He did not follow up for mini mental status exam. Feb 04, 2025 pt does not remember several things about his current plan of care and is unaware of his memory deficiencies. Will schedule for MOCA and neurology appointment. Lab Results Component Value Date VITB12 429 12/03/2024 TSH 1.62 12/03/2024 Syphilis negative 2019 Orders: Referral to Neurology; Future Type 2 diabetes mellitus with diabetic polyneuropathy, with long-term current use of insulin (HCC) Diabetes is not controlled. Followed by [employer] Outside Sales Representative, Dr. Warner, note from 10/16/24 reviewed -has Dexacom GCM Lab Results Component Value Date HGBA1C 8.4 (A) 12/03/2024 HGBA1C 9.3 (A) 07/18/2024 HGBA1C 9.7 (A) 05/25/2023 Lab Results Component Value Date CREATININE 0.69 01/07/2025 EGFR >60 01/07/2025 MICROALBCREU TNP 12/03/2024 MICROALBCREU TNP 12/07/2023 LDLCHOLCAL 49 12/03/2024 -Orlin/Arb: lisinopril 5mg -Statin therapy: atorvastatin 80mg -Diabetic eye exam: 03/21/24 with [facility] and seen 01/09/25 with Gabriela -Continue lifestyle modifications -Followed by Dr. Warner fruit grader -Previously intolerant to metformin. Actos was stopped few years ago he has mild decrease ejection fraction. -Diabetes medications: Humulin U 500 55 units for breakfast 55 units for lunch and 85 units for dinner 3 Xa day if >200 -Trulicity 4.5 mg Qwkly -Jardiance 25 mg daily. Admits to non-compliance with insulin. Took Mounjaro but had too much wt loss -Change Trulicity to Mounjaro and back to Trulicity 4.5 weekly on 09/2024 Orders: POCT glucose manually resulted POCT glycosylated hemoglobin (Hgb A1c) Weight loss Loss of appetite Orders: CBC auto differential; Future Positive colorectal cancer screening using Cologuard test -Cologuard was positive on 02/07/2023 -he was referred to GI. Cardiac clearance was needed prior to procedure -he is scheduled to see the gear finisher September 07, 2023 -he is scheduled for [...] Transient ischemic dilatation not present. -ordered TSH normal and CEA 12/03/24 negative Has GI follow up at [facility] 02/26/25 and we will call cardiology 02/04/25 to remind them of clearance as he had ablation for atrial fibrillation 01/2025 Unintentional weight loss Differential includes GLP 1 vs other, need to rule out GI neoplasm given positive Cologuard and positive family history. Pt reports he has been losing weight unintentionally. From 2019 to 2023 he lost 26 lbs slowly but had been working on lifestyle changes. From Mar 2023 to today he has lost an additional 82 lbs. Currently 82 lb weight loss since March 2024. Mounjaro was started in Mar 2024 and weight loss attributed to that. He has been off Mounjaro since 09/2024 due to weight lass and was started on Trulicity. He continues to loss weight with the medicinae change. notes he has even stopped his Monjouro and continues to loose weight. He had a positive Cologuard Feb 2023 but needed cardiac clearance before proceeding with colonoscopy. We will call cardiology 02/04/25 to check on status of clearance as he had another ablation for his atrial fibrillation 01/2025. He has appointment with [facility] 02/26/25 at 11:30.His father had a history of colon cancer. We will call cardiology 02/04/25 to remind of clearance for his upcomming appointment Feb 26, 2025 with GI. - no anemia -PSA 0.56, 09/27/24 -ordered TSH and CEA 12/03/24 both normal -last HIV was negative 2021, will repeat 12/03/24 negative Future Appointments Date Time Provider Department Center 02/15/2025 11:30 AM [facility] GREEN TEAM NURSE MEDICINE [facility] 03/18/2025 11:30 AM Hillary Zamora MD MEDICINE [facility] [1] Current Outpatient Medications: atorvastatin (Lipitor) 80 MG tablet, TAKE 1 TABLET BY MOUTH AT BEDTIME, Disp: 90 tablet, Rfl: 1 Blood Glucose Monitoring Suppl (FreeStyle Lite) w/Device kit, 1 kit 6 (six) times a day., Disp: 1 kit, Rfl: 0 cholecalciferol (Vitamin D-3) 50 MCG (1999) capsule, Take 1 capsule by mouth in the morning., Disp: , Rfl: cyclobenzaprine (Flexeril) 5 MG tablet, TAKE 1 TABLET ORALLY 3 TIMES A DAY NEEDED FOR MUSCLE SPASM FOR 7 DAYS, Disp: , Rfl: dabigatran etexilate (Pradaxa) 150 MG capsule, TAKE 1 CAPSULE BY MOUTH TWICE DAILY IN THE MORNING AND IN THE EVENING, Disp: 60 capsule, Rfl: 5 divalproex (Depakote) 500 MG EC tablet, TAKE 1 TABLET BY MOUTH EVERY MORNING and TAKE 2 TABLETS EVERY DAY AT BEDTIME, Disp: , Rfl: empagliflozin (Jardiance) 25 MG, Take by mouth., Disp: , Rfl: ezetimibe (Zetia) 10 MG tablet, Take 10 mg by mouth Once per day., Disp: , Rfl: FREESTYLE LITE test strip, TEST BLOOD SUGAR SIX TIMES DAILY DIRECTED, Disp: 200 strip, Rfl: 11 HumuLIN R U-500 KWIKPEN 500 UNIT/ML CONCENTRATED injection, INJECT 80 UNITS SUBCUTANEOUSLY TWICE DAILY, Disp: , Rfl: insulin regular (HumuLIN R U-500 KWIKPEN) 500 UNIT/ML CONCENTRATED injection, 80 Units., Disp: , Rfl: lidocaine (Lidoderm) 5 % patch, APPLY 1 PATCH TOPICALLY TO SKIN, LEAVE ON FOR 12 HOURS AND OFF FOR 12 HOURS DIRECTED. APPLY TO MOST PAINFUL AREA., Disp: , Rfl: lisinopril 5 MG tablet, Take by mouth Once per day., Disp: , Rfl: melatonin 5 MG tablet, TAKE 2 TABLETS BY MOUTH EVERY DAY AT BEDTIME NEEDED, Disp: , Rfl: omeprazole (PriLOSEC) [address] capsule, TAKE 1 CAPSULE BY MOUTH EVERY MORNING NEEDED, Disp: 90 capsule, Rfl: 0 omeprazole (PriLOSEC) [address] capsule, TAKE 1 CAPSULE BY MOUTH EVERY MORNING BEFORE BREAKFAST, Disp: 90 capsule, Rfl: 3 sotalol (Betapace) 80 MG tablet, Take by mouth., Disp: , Rfl: tamsulosin (Flomax) 0.4 MG 24 hr capsule, Take 0.4 mg by mouth Once per day., Disp: , Rfl: Tirzepatide (Mounjaro) 2.5 MG/0.5ML solution auto-injector, Inject under the skin., Disp: , Rfl: [2] Allergies Allergen Reactions Metformin Penicillins [3] Past Medical History: Diagnosis Date Cardiomyopathy (HCC) 03/29/2022 Possibly due to atrial fib. Pt is already on Sotolol. Pressure is too low for ORLIN or ARB but orlin onlist so referral to pharmacy for med rec Last LVEF 50-55% 03/2019 Cardiac cath 2012 no significant CAD, stress MIBI 2016 unremarkable. Pt is euvolemic so no requirements for diuretics. Stress test with Lashae Dipesh 03/15/24 Myocardial perfusion imaging study shows no clear evidence of ischem Choroidal nevus, right eye Chronic anticoagulation 05/12/2023 Chronic low back pain 05/12/2023 MRI 05/11/23 1. 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 If future surgery or a percutaneous procedure is contemplated, recommend correlationwith plain film evaluation in order to ensure correct enumeration. 2. Moderate central canal stenosis due to spondylosis at the L3-L4 level with moderate to severe thecal sac disto Dental calculus 06/15/2023 Diabetes mellitus ([facility]) Dry eyes Gingival bleeding 06/15/2023 Hematochezia 05/07/2013 Hyperkalemia Hypertension Midline low back pain without sciatica, unspecified chronicity Mild intermittent asthma 12/06/2016 Missing teeth, acquired 06/15/2023 Morbid obesity (CMS/HCC) ([facility]) 01/10/2012 Non-ischemic cardiomyopathy (CMS/HCC) ([facility]) Obesity Obstructive sleep apnea syndrome 01/10/2012 Does not tolerate CPAP-pt willing to be evaluated again by sleep med and check how can improve use of machine ,explained importance to pt for tx -Will try to refer in [facility] 01/24/2023 CLAUDIA (obstructive sleep apnea) Paroxysmal atrial fibrillation ([facility]) ([facility]) Periodontal disease Precordial pain Tremor Type 2 diabetes mellitus with hyperosmolarity, uncontrolled ([facility]) 01/10/2012 Diabetes is not controlled. Followed by [employer] Outside Sales Representative, Dr. Warner -has Dexacom GCM Lab Results Component Value Date HGBA1C 9.7 (A) 05/25/2023 HGBA1C 9.1 (A) 01/24/2023 HGBA1C 8.9 (A) 08/18/2022 - Lab Results Component Value Date CREATININE 0.81 10/14/2022 EGFR >60 10/15/19 [4] Past Surgical History: Procedure Laterality Date CATARACT EXTRACTION [5] Family History Problem Relation Name Age of Onset Alzheimer's disease Mother Diabetes Mother Colon cancer Father Prostate cancer Father Diabetes Father Colon cancer Other Prostate cancer Other documented in this encounter Miscellaneous Notes * Assessment & Plan Note - Hillary Zamora MD - 02/04/2025 9:00 AM EST Associated Problem(s): Memory loss Pt concerned with memory loss first reported 10/2022 and has continue dot be concerned about this. His mother had Alzheimer dementia. He did not follow up for mini mental status exam. Feb 04, 2025 pt does not remember several things about his current plan of care and is unaware of his memory deficiencies. Will schedule for MOCA and neurology appointment. Lab Results Component Value Date VITB12 429 12/03/2024 TSH 1.62 12/03/2024 Syphilis negative 2019 Orders: Referral to Neurology; Future * Assessment & Plan Note - Hillary Zamora MD - 02/04/2025 9:00 AM EST Associated Problem(s): Type 2 diabetes mellitus with diabetic polyneuropathy, with long-term current use of insulin (HCC) Diabetes is not controlled. Followed by [employer] Outside Sales Representative, Dr. Warner, note from 10/16/24 reviewed -has Dexacom GCM Lab Results Component Value Date HGBA1C 8.4 (A) 12/03/2024 HGBA1C 9.3 (A) 07/18/2024 HGBA1C 9.7 (A) 05/25/2023 Lab Results Component Value Date CREATININE 0.69 01/07/2025 EGFR >60 01/07/2025 MICROALBCREU TNP 12/03/2024 MICROALBCREU TNP 12/07/2023 LDLCHOLCAL 49 12/03/2024 -Orlin/Arb: lisinopril 5mg -Statin therapy: atorvastatin 80mg -Diabetic eye exam: 03/21/24 with [facility] and seen 01/09/25 with Gabriela -Continue lifestyle modifications -Followed by Dr. Warner fruit grader -Previously intolerant to metformin. Actos was stopped few years ago he has mild decrease ejection fraction. -Diabetes medications: Humulin U 500 55 units for breakfast 55 units for lunch and 85 units for dinner 3 Xa day if >200 -Trulicity 4.5 mg Qwkly -Jardiance 25 mg daily. Admits to non-compliance with insulin. Took Mounjaro but had too much wt loss -Change Trulicity to Mounjaro and back to Trulicity 4.5 weekly on 09/2024 Orders: POCT glucose manually resulted POCT glycosylated hemoglobin (Hgb A1c) * Assessment & Plan Note - Hillary Zamora MD - 02/04/2025 9:00 AM EST Associated Problem(s): Positive colorectal cancer screening using Cologuard test -Cologuard was positive on 02/07/2023 -he was referred to GI. Cardiac clearance was needed prior to procedure -he is scheduled to see the gear finisher September 07, 2023 -he is scheduled for [...] Transient ischemic dilatation not present. -ordered TSH normal and CEA 12/03/24 negative Has GI follow up at [facility] 02/26/25 and we will call cardiology 02/04/25 to remind them of clearance as he had ablation for atrial fibrillation 01/2025 * Assessment & Plan Note - Hillary Zamora MD - 02/04/2025 9:00 AM EST Associated Problem(s): Unintentional weight loss Differential includes GLP 1 vs other, need to rule out GI neoplasm given positive Cologuard and positive family history. Pt reports he has been losing weight unintentionally. From 2019 to 2023 he lost 26 lbs slowly but had been working on lifestyle changes. From Mar 2023 to today he has lost an additional 82 lbs. Currently 82 lb weight loss since March 2024. Mounjaro was started in Mar 2024 and weight loss attributed to that. He has been off Mounjaro since 09/2024 due to weight lass and was started on Trulicity. He continues to loss weight with the medicinae change. notes he has even stopped his Monjouro and continues to loose weight. He had a positive Cologuard Feb 2023 but needed cardiac clearance before proceeding with colonoscopy. We will call cardiology 02/04/25 to check on status of clearance as he had another ablation for his atrial fibrillation 01/2025. He has appointment with [facility] 02/26/25 at 11:30.His father had a history of colon cancer. We will call cardiology 02/04/25 to remind of clearance for his upcomming appointment Feb 26, 2025 with GI. - no anemia -PSA 0.56, 09/27/24 -ordered TSH and CEA 12/03/24 both normal -last HIV was negative 2021, will repeat 12/03/24 negative documented in this encounter Plan of Treatment Upcoming Encounters Date Type Department Care Team (Late st Contact Info) Description 02/15/2025 11:30 AM EST Clinical Support [facility] [address] [place] [phone] 03/18/2025 11:30 AM EST Office Visit [facility] [address] [place] [phone] Hillary Zamora MD [address] [place] [phone] Scheduled Referrals Name Type Priority Associated Diagnoses Orde r Schedule Referral to Neurology Outpatient Referral Routine Memory loss Expected: 02/04/2025 (Approximate), Expires: 02/04/2026 documented as of this encounter Goals Goal Patient Goal Type Associated Problems Recent Progress Patient-Stated? Author Help patients manage their type 2 diabetes Care Plan Help patients manage their type 2 diabetes No Alyce Bradford MA Weekly blood pressure task Care Plan Weekly blood pressure task No Alyce Bradford MA Help patients manage their type 2 diabetes Care Plan Help patients manage their type 2 diabetes No Alyce Bradford MA Patient has chronic kidney disease Care Plan Patient has chronic kidney disease No Alyce Bradford MA Weekly blood pressure task Care Plan Weekly blood pressure task No Alyce Bradford MA Patient has chronic kidney disease Care Plan Patient has chronic kidney disease No Alyce Bradford MA Weekly blood pressure task Care Plan Weekly blood pressure task No Alyce Bradford MA Weekly blood pressure task Care Plan Weekly blood pressure task No Alyce Bradford MA Patient has chronic kidney disease Care Plan Patient has chronic kidney disease No Alyce Bradford MA Patient has chronic kidney disease Care Plan Patient has chronic kidney disease No Alyce Bradford MA Weekly blood pressure task Care Plan Weekly blood pressure task No Hillary Zamora MD Weekly blood pressure task Care Plan Weekly blood pressure task No Hillary Zamora MD Patient has chronic kidney disease Care Plan Patient has chronic kidney disease No Hillary Zamora MD Patient has chronic kidney disease Care Plan Patient has chronic kidney disease No Hillary Zamora MD documented as of this encounter Procedures Procedure Name Priority Date/Time Associated Diagnosis Comments CBC WITH AUTO DIFFERENTIAL Routine 02/04/2025 9:46 AM EST Loss of appetite POCT GLYCOSYLATED HEMOGLOBIN (HGB A1C) Routine 02/04/2025 9:33 AM EST Type 2 diabetes mellitus with diabetic polyneuropathy, with long-term current use of insulin (HCC) POCT GLUCOSE Routine 02/04/2025 9:33 AM EST Type 2 diabetes mellitus with diabetic polyneuropathy, with long-term current use of insulin (HCC) documented in this encounter Results * (ABNORMAL) CBC auto differential (02/04/2025 9:46 AM EST) White Blood Count 4.2(L) 4.8 - 10.8 X10*3/uL [facility] Red Blood Count 4.70 4.60 - 5.80 X10*6/uL [facility] Hemoglobin 15.0 14.0 - 18.0 g/dl [facility] Hematocrit 45.2 42.0 - 52.0 % [facility] Mean Corpuscular Volume 96.2 80.0 - 98.0 fL [facility] Mean Corpuscular Hemoglobin 31.9 27.0 - 33.0 pg [facility] Mean Corpuscular HGB Conc 33.2 31.0 - 36.0 g/dl [facility] Red Cell Distribution Width 13.1 11.0 - 16.0 % [facility] Platelet Count 181 160 - 400 X10*3/uL [facility] Mean Platelet Volume 9.7 9.4 - 12.4 fL [facility] Neutrophils Percent Auto 48.7 45 - 73 % [facility] Imm Gran Pct Auto 0.5(H) 0.0 - 0.4 % [facility] Lymphocytes Percent Auto 38.2 20 - 40 % [facility] Monocytes Percent Auto 8.1 2 - 11 % [facility] Eosinophils Percent Auto 3.3 0 - 4 % [facility] Basophils Percent Auto 1.2 0 - 2 % [facility] NRBC Pct Auto 0.0 0.0 - 0.2 /100WBC [facility] Neutrophils Absolute Auto 2.1 2.0 - 8.3 x10*3/uL [facility] Imm Gran Abs Auto 0.02 0.00 - 0.03 X10*3/uL [facility] Lymphocytes Absolute Auto 1.6 1.2 - 4.9 X10*3/uL [facility] Monocytes Absolute Auto 0.3 0.1 - 1.2 X10*3/uL [facility] Eosinophils Absolute Auto 0.1 0.0 - 0.4 X10*3/uL [facility] Basophils Absolute Auto 0.1 0.0 - 0.2 X10*3/uL [facility] NRBC Abs Auto 0.000 0.0 - 0.012 X10*3/uL [facility] Blood Venous blood specimen / Unknown 02/04/2025 9:46 AM EST 02/04/2025 11:16 AM EST us Hillary Zamora MD LAB BLOOD ORDERABLES Final Result [facility] [address] [place], [place] [phone] * (ABNORMAL) POCT glycosylated hemoglobin (Hgb A1c) (02/04/2025 9:33 AM EST) Hemoglobin A1C 8.4(A) 4.0 - 5.7 % QC Media Lot # [id number] Lot# Expiration Date Blood Capillary blood specimen / Unknown 02/04/2025 9:33 AM EST us Hillary Zamora MD POINT OF CARE TEST ENTER/E DIT ORDERABLES Final Result * POCT glucose manually resulted (02/04/2025 9:33 AM EST) Glucose Blood, POC 181 60 - 200 mg/dL QC Media Lot # [id number] Lot# Expiration Date Blood Capillary blood specimen / Unknown 02/04/2025 9:33 AM EST us Hillary Zamora MD POINT OF CARE TEST ENTER/E DIT ORDERABLES Final Result documented in this encounter Visit Diagnoses Diagnosis Memory loss- Primary Type 2 diabetes mellitus with diabetic polyneuropathy, with long-term current use of insulin (HCC) Weight loss Loss of weight Loss of appetite Anorexia Positive colorectal cancer screening using Cologuard test Unintentional weight loss Loss of weight documented in this encounter Additional Health Concerns Active Problems Noted Date Diagnosed Date Help patients manage their type 2 diabetes 01/30 Weekly blood pressure task 01/30/2025 Help patients manage their type 2 diabetes 01/30 Patient has chronic kidney disease 01/30/2025 Weekly blood pressure task 01/30/2025 Patient has chronic kidney disease 01/30/2025 Weekly blood pressure task 01/30/2025 Weekly blood pressure task 01/30/2025 Patient has chronic kidney disease 01/30/2025 Patient has chronic kidney disease 01/30/2025 Weekly blood pressure task 02/04/2025 Weekly blood pressure task 02/04/2025 Patient has chronic kidney disease 02/04/2025 Patient has chronic kidney disease 02/04/2025 Assessment Noted Time PHQ-9 Depression Total Score: 0 12/04/19 8:51 AM EDT documented as of this encounter Care Teams Bulk Plant Supervisor Relationship Specialty Start Date End Date Hillary Zamora MD [address] [place] [address] PCP - General Family Medicine 03/07/18 Orlando Warner MD [address] [place] [address] Endocrinology 03/29/24 Layla Marrufo NP [address] [place] [address] Urology 04/05/24 Meri Mauricio OD [address] [place] [address] Optometry 04/17/24 Matias Marcelino MD [address] [place] [address] Cardiology 09/06/24 Teetee Zacarias CLINICAL EDUCATION ASSISTANT Endocrinology 03/29/24 [facility] 01/09/25 documented as of this encounter
[2025-02-04 11:20] LABS: MANUAL DIFF FLAG NO
[2025-02-04 11:26] LABS: Hematocrit 44.3 % (42.0-52.0); Hemoglobin 14.7 g/dl (14.0-18.0); Mean Corpuscular HGB Conc 33.2 g/dl (31.0-36.0); Mean Corpuscular Hemoglobin 32.2 pg (27.0-33.0); Mean Corpuscular Volume 96.9 fL (80.0-98.0); NRBC Abs Auto 0.000 X10*3/uL (0.0-0.012); NRBC Pct Auto 0.0 /100WBC (0.0-0.2); Platelet Count 179 X10*3/uL (160-400); Red Blood Count 4.57 X10*6/uL (4.60-5.80); White Blood Count 4.6 X10*3/uL (4.8-10.8)
[2025-02-04 11:28] LABS: Hematocrit 45.2 % (42.0-52.0); Hemoglobin 15.0 g/dl (14.0-18.0); Imm Gran Abs Auto 0.02 X10*3/uL (0.00-0.03); Imm Gran Pct Auto 0.5 % (0.0-0.4); Lymphocytes Absolute Auto 1.6 X10*3/uL (1.2-4.9); Mean Corpuscular HGB Conc 33.2 g/dl (31.0-36.0); Mean Corpuscular Hemoglobin 31.9 pg (27.0-33.0); Mean Corpuscular Volume 96.2 fL (80.0-98.0); NRBC Abs Auto 0.000 X10*3/uL (0.0-0.012); NRBC Pct Auto 0.0 /100WBC (0.0-0.2); Platelet Count 181 X10*3/uL (160-400); Red Blood Count 4.70 X10*6/uL (4.60-5.80); White Blood Count 4.2 X10*3/uL (4.8-10.8)
--- OUTSIDE RECORDS SUMMARY | 2025-02-04 11:36 | XMS_ITS | Encounter Summary ---
Author Organization [employer] Address [address] [place] [address] Care Team Providers Care Statement Distribution Clerk Name Role Phone Hillary Zamora MD Primary Care Provider [phone] Orlando Warner MD Unavailable [phone] Layla Marrufo NP Unavailable Meri Mauricio OD Unavailable Matias Marcelino MD Unavailable Reason for Visit * Reason Onset Date Comments chartprep 01/30/2025 Encounter Details Date Type Department Care Team (Late st Contact Info) Description 01/30/2025 Telephone [facility] [address] [place], [place] [phone] Hillary Zamora MD [address] [place], [place] [phone] chartprep Social History Tobacco Use Types Packs/Day Years [...] the past 12 months, has t he [employer], gas, oil or water company threatened to [...] AM EDT documented as of this encounter Miscellaneous Notes * Telephone Encounter - Alyce Bradford MA - 01/30/2025 2:00 PM EST ..Chart Prep Labs: done Images: done XR Ribs Vaccines due: Covid Due and RSV in Pharmacy Due Referrals: Not Applicable Screenings: Colonoscopy Overdue care gaps: A1C and Glucose documented in this encounter Plan of Treatment Upcoming Encounters Date Type Department Care Team (Late st Contact Info) Description 02/15/2025 11:30 AM EST Clinical Support [facility] [address] [place] [phone] 03/18/2025 11:30 AM EST Office Visit [facility] [address] [place] [phone] Hillary Zamora MD [address] [place] [address] documented as of this encounter Goals Goal [...] chronic kidney disease No Alyce Bradford MA documented as of this encounter Visit Diagnoses Not on filedocumented in this encounter Additional Health Concerns Active [...] 01/30/2025 Patient has chronic kidney disease 01/30/2025 Assessment Noted Time PHQ-9 Depression Total Score: 0 12/04/19 25 8:51 AM EDT documented as of this encounter Care Teams Statement Distribution Clerk Relationship Specialty Start Date End Date Hillary Zamora MD [address] [place] [address] PCP - General Family Medicine 03/07/18 Orlando Warner MD [address] [place] [address] Endocrinology 03/29/24 Layla Marrufo NP [address] [place] [address] Urology 04/05/24 Meri Mauricio OD [address] [place] [address] Optometry 04/17/24 Matias Marcelino MD [address] [place] [address] 3[address] [place] [address] Cardiology 09/06/24 Teetee Zacarias CIGARETTE PACKER Endocrinology 03/29/24 [facility] 01/09/25 documented as of this encounter
--- OUTSIDE RECORDS SUMMARY | 2025-02-04 11:36 | XMS_ITS | Encounter Summary ---
Author Organization [employer] Address [address] [place] [address] Care Team Providers Care Talent Sourcer Name Role Phone Hillary Zamora MD Primary Care Provider [phone] Orlando Warner MD Unavailable [phone] Layla Marrufo NP Unavailable Meri Mauricio OD Unavailable Matias Marcelino MD Unavailable Encounter Details Date Type Department Care Team (Late st Contact Info) Description 04/17/2024 Orders Only [facility] [address] [place], [place] [phone] Hillary Zamora MD [address] [place], [place] [phone] Type 2 diabetes mellitus with hyperglycemia, with [...] Description 02/15/2025 11:30 AM EST Clinical Support [facility] [address] [place] [address] 03/18/2025 11:30 AM EST Office Visit [facility] [address] [place] [phone] Hillary Zamora MD [address] [place] [address] documented as of this encounter Visit Diagnoses [...] Time PHQ-9 Depression Total Score: 0 05/25/19 10:32 AM EDT documented as of this encounter Care Teams Talent Sourcer Relationship Specialty Start Date End Date Hillary Zamora MD [address] [place] [address] PCP - General Family Medicine 03/07/18 Orlando Warner MD [address] [place] [address] Endocrinology 03/29/24 Layla Marrufo NP [address] [place] [address] Urology 04/05/24 Meri Mauricio OD [address] [place] [address] Optometry 04/17/24 Matias Marcelino MD [address] 3[address] [place] [address] Cardiology 09/06/24 Teetee Zacarias HEALTH PHYSICS TECHNICIAN Endocrinology 03/29/24 [facility] 01/09/25 documented as of this encounter
--- OUTSIDE RECORDS SUMMARY | 2025-02-04 11:36 | XMS_ITS | Encounter Summary ---
Author Organization [employer] Address [address] [facility] 7t [place] [address] Care Team Providers Care Director Safety Council Name Role Phone Hillary Zamora MD Primary Care Provider [phone] Orlando Warner MD Unavailable [phone] Layla Marrufo NP Unavailable Meri Mauricio OD Unavailable Matias Marcelino MD Unavailable Reason for Visit * Reason Onset Date Comments Care Coordination 02/04/2025 Encounter Details Date Type Department Care Team (Late st Contact Info) Description 02/04/2025 Telephone [facility] [address] [place], [place] [phone] Hillary Zamora MD [address] [place], [place] [phone] Care Coordination Social History Tobacco Use Types Packs/Day Years [...] the past 12 months, has t he [employer], gas, oil or water company threatened to [...] encounter Miscellaneous Notes * Telephone Encounter - Lety Lopez RN - 02/04/2025 10:02 AM EST Called [facility] Cardiology, spoke with TIFFANIE Sherwood who will send message to Dr. Marcelino to advise on cardiac clearance prior to 02/26/25 colonoscopy. Future Appointments Date Time Provider Department Center 02/15/2025 11:30 AM [facility] GREEN TEAM NURSE MEDICINE [facility] 03/18/2025 11:30 AM Hillary Zamora MD MEDICINE [facility] * Telephone Encounter - Hillary Zamora MD - 02/04/2025 9:21 AM EST Pt has positive Cologuard and significant unintentional weight loss with family history of colon cancer. He has apt with [facility] Dec 23 at 11:30 but they are waiting on cardiac clearance. He recently had ablation for atrial fibrillation last month. Please ask cardiology if they can comment on pt getting colonscopy before his abt on Feb 26. Pt also having memory difficulties. Please schedule for [facility]. documented in this encounter Plan of Treatment Upcoming Encounters Date Type Department Care Team (Late st Contact Info) Description 02/15/2025 11:30 AM EST Clinical Support [address] [address] 03/18/2025 11:30 AM EST Office Visit [address] [address] Hillary Zamora MD [address] [place] [address] documented as of this encounter Goals Goal [...] Zamora MD documented as of this encounter Visit Diagnoses [...] documented as of this encounter Care Teams Director Safety Council Relationship Specialty Start Date End Date Hillary Zamora MD [address] [place] [address] PCP - General Family Medicine 03/07/18 Orlando Warner MD [address] [place] [address] Endocrinology 03/29/24 Layla Marrufo NP [address] [place] [address] Urology 04/05/24 Meri Mauricio OD [address] [place] [address] Optometry 04/17/24 Matias Marcelino MD [address] [place] [address] Cardiology 09/06/24 Teetee Zacarias COMMUNICATION EQUIPMENT MECHANIC Endocrinology 03/29/24 [facility] 01/09/25 documented as of this encounter
--- OUTSIDE RECORDS SUMMARY | 2025-02-04 11:36 | XMS_ITS | Encounter Summary ---
Author Organization [employer] Address [address] [place] [address] Care Team Providers Care Housing Specialist Name Role Phone Sera, Hillary ONTIVEROS Primary Care Provider [phone] Orlando Warner MD Unavailable [phone] Layla Marrufo NP Unavailable Meri Mauricio OD Unavailable [phone] Matias Marcelino MD Unavailable [phone] Encounter Details Date Type Department Care Team (Latest Contact Info) Description 02/04/2025 Travel Social History Tobacco Use Types Packs/Day [...] Description 02/15/2025 11:30 AM EST Clinical Support [address] [address] 03/18/2025 11:30 AM EST Office Visit [facility] [address] [place] [address] Hillary Zamora MD [address] [place] [address] documented as of this encounter Goals Goal [...] documented as of this encounter Care Teams Housing Specialist Relationship Specialty Start Date End Date Hillary Zamora MD [address] [place] [address] PCP - General Family Medicine 03/07/18 Orlando Warner MD [address] [place] [address] Endocrinology 03/29/24 Layla Marrufo NP [address] [place] [address] Urology 04/05/24 Meri Mauricio OD [address] [place] [address] Optometry 04/17/24 Matias Marcelino MD [address] [place] [address] Drive 3rd [place] [address] Cardiology 09/06/24 Teetee Zacarias CIRCULAR KNITTER HELPER Endocrinology 03/29/24 [facility] 01/09/25 documented as of this encounter
--- OUTSIDE RECORDS SUMMARY | 2025-02-04 11:36 | XMS_ITS | Encounter Summary ---
Author Organization [email or web address] [facility] Address [address] [facility] [address]t [place] [address] Care Team Providers Care Pipe Welder Name Role Phone Hillary Zamora MD Primary Care Provider + [phone] Orlando Warner MD Unavailable Layla Marrufo NP Unavailable Meri Mauricio OD Unavailable [phone] Matias Marcelino MD Unavailable [phone] Encounter Details Date Type Department Care Team (Latest Contact Info) Description 12/23/2020 Abstract [facility] CONVERSIONS Dental, Provider, DDS Social History Tobacco [...] Description 02/15/2025 11:30 AM EST Clinical Support [facility]INE [address] [place] [phone] 03/18/2025 11:30 AM EST Office Visit [facility] [address] [place] [phone] Hillary Zamora MD [address] [place] [address] [phone] documented as of this encounter Visit Diagnoses Not on filedocumented in this encounter Care Teams Pipe Welder Relationship Specialty Start Date End Date Hillary Zamora MD [address] [place] [address] PCP - General Family Medicine 03/07/18 Orlando Warner MD [address] [place] [address] Endocrinology 03/29/24 Layla Marrufo NP [address] [place] [address] Urology 04/05/24 Meri Mauricio OD [address] [place] [address] Optometry 04/17/24 Matias Marcelino MD [address] [place] [address] Cardiology 09/06/24 Teetee Zacarias POULTRY KILLER Endocrinology 03/29/24 [facility] 01/09/25 documented as of this encounter
--- OUTSIDE RECORDS SUMMARY | 2025-02-04 11:37 | XMS_ITS | Clinical Summary ---
Author Organization [employer] Address [address] [address] [facility] [address] [place] [address] Care Team Providers Care [employer] We[employer] Sergeant Name Role Phone [place], Hillary ONTIVEROS Primary Care Provider [phone] Orlando Warner MD Unavailable Layla Marrufo NP Unavailable Meri Mauricio OD Unavailable Matias Marcelino MD Unavailable [phone] Allergies Active Allergy Reactions Criticality Noted Date [...] hyperglycemia, with long-term current use of insulin ([facility]) Take by mouth. A ctive sotalol (Betapace) 80 MG tabletIndicatio ns:Chronic atrial fibrillation (CMS/HCC) ([facility]) Take by mouth. Active ezetimibe (Zetia) 10 MG tabletIndicatio ns:Dyslipidemia Take 10 mg by mouth Once per day. Active lisinopril 5 MG tabletIndicatio ns:Primary hypertension Take by mouth Once per day. Active Tirzepatide (Mounjaro) 2.5 MG/0.5ML solution auto-injectorIn dications:Type 2 diabetes mellitus with hyperglycemia, with long-term current use of insulin ([facility]) Inject under the skin. Active tamsulosin (Flomax) [...] 150 MG capsuleIndicati ons:Chronic atrial fibrillation (CMS/HCC) ([facility]) TAKE 1 CAPSULE BY MOUTH TWICE DAILY IN THE MORNING AND IN THE EVENING 60 capsule 5 025 Active FREESTYLE LITE test stripIndication s:Type 2 diabetes mellitus with hyperglycemia, with long-term current use of insulin ([facility]) TEST BLOOD SUGAR SIX TIMES DAILY DIRECTED [...] migh t be different from the original. [facility] Practice Specialist: Lizz, member services number [phone], provider services line, , option 4 Pain Medicine Physician Agency: [employer] [facility] Problem Noted Date Diagnosed Date Memory loss 02/04/2025 Overview (02/04/2025): Pt concerned with memory loss first reported [...] 429 12/03/2024 TSH 1.62 12/03/2024 Syphilis negative 2018 Assessment & Plan (02/04/2025 10:18 AM EST): Pt concerned with memory loss first reported [...] 429 12/03/2024 TSH 1.62 12/03/2024 Syphilis negative 2018 Orders: Referral to Neurology; Future Cord compression 12/03/2024 Assessment & Plan (12/03/2024 [...] Serum; Future Unintentional weight loss 12/03/2024 Overview (02/04/2025): Differential includes GLP 1 vs other, need [...] atrial fibrillation 01/2025. He has appointment with [facility] 02/26/25 at 11:30. His father had a history of colon cancer. We will call cardiology 02/04/25 to remind of clearance for his upcomming appointment Feb 26, 2025 with GI. - no anemia -PSA 0.56, 09/27/24 -ordered TSH and CEA 9/29/25 both normal -last HIV was negative 2021, will repeat 12/03/24 negative Assessment & Plan (02/04/2025 10:18 AM EST): Differential includes GLP 1 vs other, need [...] atrial fibrillation 01/2025. He has appointment with [facility] 02/26/25 at 11:30. His father had a history of colon cancer. We will call cardiology 02/04/25 to remind of clearance for his upcomming appointment Feb 26, 2025 with GI. - no anemia -PSA 0.56, 09/27/24 -ordered TSH and CEA 12/03/24 both normal -last HIV was negative 2021, will repeat 12/03/24 negative Assessment & Plan (12/03/2024 10:01 AM EDT): [...] screening using Colog uard test 09/02/2023 Overview (02/04/2025): -Cologuard was positive on 02/07/2023 -he was referred to GI. Cardiac clearance was needed prior to procedure -he is scheduled to see the faculty administrator September 07, 2023 -he is scheduled for [...] 12/03/24 negative Has GI follow up at [facility] 02/26/25 and we will call cardiology 02/04/25 to remind them of clearance as he had ablation for atrial fibrillation 01/2025 Assessment & Plan (02/04/2025 10:18 AM EST): -Cologuard was positive on 02/07/2023 -he was referred to GI. Cardiac clearance was needed prior to procedure -he is scheduled to see the faculty administrator September 07, 2023 -he is scheduled for [...] 12/03/24 negative Has GI follow up at [facility] 02/26/25 and we will call cardiology 02/04/25 to remind them of clearance as he had ablation for atrial fibrillation 01/2025 Assessment & Plan (12/03/2024 10:01 AM EDT): -Cologuard was positive on 02/07/2023 -he was referred to GI. Cardiac clearance was needed prior to procedure -he is scheduled to see the faculty administrator September 07, 2023 -he is scheduled for [...] procedure -he is scheduled to see the faculty administrator September 07, 2023 -he is scheduled for [...] Urinary hesitancy 09/02/2023 Overview (12/03/2024): -seen by [facility] 10/27/23 -tamulsosin 0.4 started 10/27/23 and PSA was normal -US renal Unremarkable renal ultrasound 12/01/2023 -note from Layla Marrufo NP reviewed 04/05/24 Continue Flomax as discussed and prescribed. Class 2 severe obesity due t o excess calories with serious comorbidity and body mass index (BMI) of 35.0 to 35.9 in adult 09/02/2023 Dental calculus 08/26/2023 Cardiac risk counseling 08/04/2023 Overview (08/04/2023): Calculated 08/04/23 The ASCVD Risk score (Deidra BUSTAMANTE, et al., 2019) failed to calculate for the following reasons: The valid total cholesterol range is 130 to 320 mg/dL Lab Results Component Value Date LDLCHOL 79 09/03/2021 -Tobacco cessation: not applicable -Statin therapy: atorvastatin 80 -Importance of moderate physical activity and nutrition interventions discussed. Periodontal disease 05/26/2023 Foot pain, bilateral 05/25/2023 [...] rate control. -He was referred back to customer operations specialist 01/2021 -Pt seen cardiology 10/2021 with [...] discontinued. -Followed by Dr. Matias Marcelino of [facility], note from 09/04/24 [...] rate control. -He was referred back to customer operations specialist 01/2021 -Pt seen cardiology 10/2021 with [...] discontinued. -Followed by Dr. Matias Marcelino of [facility], note from 09/04/24 [...] rate control. -He was referred back to customer operations specialist 01/2021 -Pt seen cardiology 10/2021 with [...] discontinued. -Followed by Dr. Matias Marcelino of [facility] -Saw Evonne Gillespie [...] rate control. -He was referred back to customer operations specialist 01/2021 -Pt seen cardiology 10/2021 with [...] discontinued. -Followed by Dr. Matias Marcelino of [facility] -Saw Evonne Gillespie [...] rate control. -He was referred back to customer operations specialist 01/2021 -Pt seen cardiology 10/2021 with [...] discontinued. -Followed by Dr. Matias Marcelino of [facility] -Saw Evonne Gillespie [...] been asymptomatic. He was referred back to customer operations specialist 01/2021 He is awaiting a new [...] [place] last seen 06/22/2022 -dental home is [facility] proxy filed 12/03/24 Assessment & Plan (12/03/2024 10:01 AM EDT): -next comprehensive annual evaluation due after 12/03/25 -eye care facilitated by James [place] last seen 06/22/2022 -dental home is [facility] proxy filed 12/03/24 Assessment & Plan (09/02/2023 10:25 AM EDT): -next physical exam due after 01/25/2024 -eye care facilitated by [facility] last seen 06/22/2022 -dental home is [...] ,diastolic dysfunction indeterminate -continue to f with faculty administrator Cardiomyopathy 03/29/2022 Overview (12/03/2024): Possibly due to [...] requirements for diuretics. Stress test with Lashae Landon 03/15/24 Myocardial perfusion imaging study shows no [...] Plan (12/03/2024 10:01 AM EDT): Currently controlled. Arthritis of right acromioclavicular joint 01/09 Recurrent major depressive disorder, in partial remission 01/10/2012 Overview (01/11/2025): Denies suicidial or homacidial ideation. Therapist and psychiatrist established. Type 2 diabetes mellitus wit h diabetic polyneuropathy, with long-term current use of insulin 01/10/2012 Overview (02/04/2025): Diabetes is not controlled. Followed by Security Alarm Technician, Dr. Warner, note from 10/16/24 reviewed -has Dexacom GCM Lab Results Component Value Date HGBA1C 8.4 (A) 12/03/2024 HGBA1C 9.3 (A) 07/18/2024 HGBA1C 9.7 (A) 05/25/2023 Lab Results Component Value Date CREATININE 0.69 01/07/2025 EGFR >60 01/07/2025 MICROALBCREU TNP 12/03/2024 MICROALBCREU TNP 12/07/2023 LDLCHOLCAL 49 12/03/2024 -Orlin/Arb: lisinopril 5mg -Statin therapy: atorvastatin 80mg -Diabetic eye exam: 03/21/24 with [facility] and seen 01/09/25 with [facility] -Continue lifestyle modifications -Followed by Dr. Warner sales and service advisor -Previously intolerant to metformin. Actos was stopped [...] back to Trulicity 4.5 weekly on 09/2024 Assessment & Plan (02/04/2025 10:18 AM EST): Diabetes is not controlled. Followed by Security Alarm Technician, Dr. Warner, note from 10/16/24 reviewed -has Dexacom GCM Lab Results Component Value Date HGBA1C 8.4 (A) 12/03/2024 HGBA1C 9.3 (A) 07/18/2024 HGBA1C 9.7 (A) 05/25/2023 Lab Results Component Value Date CREATININE 0.69 01/07/2025 EGFR >60 01/07/2025 MICROALBCREU TNP 12/03/2024 MICROALBCREU TNP 12/07/2023 LDLCHOLCAL 49 12/03/2024 -Orlin/Arb: lisinopril 5mg -Statin therapy: atorvastatin 80mg -Diabetic eye exam: 03/21/24 with [facility] and seen 01/09/25 with [facility] -Continue lifestyle modifications -Followed by Dr. Warner sales and service advisor -Previously intolerant to metformin. Actos was stopped [...] manually resulted POCT glycosylated hemoglobin (Hgb A1c) Assessment & Plan (12/03/2024 10:01 AM EDT): Diabetes is not controlled. Followed by Security Alarm Technician, Dr. Warner, note from 10/16/24 reviewed -has Dexacom GCM Lab Results Component Value Date HGBA1C 8.4 (A) 12/03/2024 HGBA1C 9.3 (A) 07/18/2024 HGBA1C 9.7 (A) 05/25/2023 - Lab Results Component Value Date CREATININE 0.79 11/12/2024 EGFR >60 11/12/2024 MICROALBCREU TNP 12/07/2023 MICROALBCREU 12.7 10/14/2022 LDLCHOLCAL 77 10/14/2022 -Orlin/Arb: lisinopril 5mg -Statin therapy: atorvastatin 80mg -Diabetic eye exam: 03/21/24 with [facility] -Continue lifestyle modifications -Followed by Dr. Warner sales and service advisor -continue Jardiance 25 daily -per Endo 02/06/25 [...] EDT): Diabetes is not controlled. Followed by Security Alarm Technician, Dr. Warner -has Dexacom GCM Lab Results Component Value Date HGBA1C 9.7 (A) 05/25/2023 HGBA1C 9.1 (A) 01/24/2023 HGBA1C 8.9 (A) 08/18/2022 - Lab Results Component Value Date CREATININE 0.81 10/14/2022 EGFR >60 10/14/2022 MICROALBCREU 12.7 10/14/2022 MICROALBCREU TNP 04/06/2022 LDLCHOLCAL 77 10/14/2022 -Orlin/Arb: lisinopril 5mg -Statin therapy: atorvastatin 80mg -Diabetic eye exam: at [facility] with Gopal Williamsony 06/22/2022 -Diabetic foot exam: -Continue lifestyle modifications -Continue current medications -Followed by Dr. Warner sales and service advisor -continue Trulicity 4.5mg weekly -continue Jardiance 25 daily -continue humulin R U 500 0 units tid Assessment & Plan (05/25/2023 10:47 AM EDT): Diabetes is not controlled. Followed by Security Alarm Technician, Dr. Warner -has Dexacom GCM Lab Results Component Value Date HGBA1C 9.1 (A) 01/24/2023 HGBA1C 8.9 (A) 08/18/2022 Lab Results Component Value Date MICROALBUR 13.0 10/14/2022 CREATININE 0.81 10/14/2022 -Seen by endocrinology on 10/12/2022. No changes made. -Changes: None -Orlin/Arb: lisinopril 5mg -Statin therapy: atorvastatin 80mg -Diabetic eye exam: at [facility] with Gopal Hendrickson 06/22/2022 -Diabetic foot exam: -Continue lifestyle modifications -Continue current medications -Followed by Dr. Warner sales and service advisor -continue Trulicity 4.5mg weekly -continue Jardiance 25 daily -Continue humulin R U 500 0 units tid Assessment & Plan (01/24/2023 12:08 PM EST): Diabetes is not controlled. Followed by Security Alarm Technician, Dr. Warner -has Dexacom GCM Lab Results Component Value Date HGBA1C 9.1 (A) 01/24/2023 HGBA1C 8.9 (A) 08/18/2022 Lab Results Component Value Date MICROALBUR 13.0 10/14/2022 CREATININE 0.81 10/14/2022 -Seen by endocrinology on 10/12/2022. No changes made. -Changes: None -Orlin/Arb: lisinopril 5mg -Statin therapy: atorvastatin 80mg -Diabetic eye exam: at [facility] with Gopal Madhavi 06/22/2022 -Diabetic foot exam: -Continue lifestyle modifications -Continue current medications -Followed by Dr. Warner sales and service advisor -continue Trulicity 4.5mg weekly -continue Jardiance 25 [...] for tx -Will try to refer in [facility] 01/24/2023 Assessment & Plan (12/03/2024 10:01 [...] for tx -Will try to refer in [facility] 01/24/2023 Assessment & Plan (01/24/2023 11:12 AM EST): Does not tolerate CPAP-pt willing to be evaluated again by sleep med and check how can improve use of machine ,explained importance to pt for tx -Will try to refer in [facility] 01/24/2023 Assessment & Plan (08/18/2022 12:01 [...] counseling 09/02/2023 4 Exercise counseling 09/02/2023 12/04/19 25 Memory change 08/31/2023 02/04/2025 Overview (09/02/2023): -patient will see the nurses for mini mental status exam Assessment & Plan (09/02/2023 10:19 AM EDT): -patient will see the nurses for mini mental status exam Dental calculus 06/15/2023 08/05/2023 Generalized gingival recession, moderate 06/15/2023 02/04/2025 Missing teeth, acquired 06/15/2023 0503/2023 Gingival bleeding [...] hb1ac is 8.9-per pt improving following w sales and service advisor -last echo in chart 12/2021: ef 50-60%, [...] ablation and after it, clearance from his faculty administrator prior to have eye surgery --I will have this note fax to his eye doctor today -if pt is cleared from his faculty administrator then pt will need to hold on pradaxa the morning of procedure unless indicated differently by his faculty administrator,hold as well PO meds in am of procedure and to use half insuline basal insuline at night prior surgery. Also pt will need to check with his faculty administrator if prior eye surgery will need to hold digoxin and diltiazem if meds are going to be continued after ablation. -I called today as well to his faculty administrator at # [phone] at [facility] and left my phone info to get a call back to discuss with faculty administrator, I also inform pt to discuss w his faculty administrator at his upcoming visit in 2 days [...] unremarkable currently not active. Hematochezia 05/07/2013 08/05/2023 Insomnia 05/11/2012 02/04/2025 Asthma 01/10/2012 10/13/2022 Encounters Date Type Department Care Team Description 02/04/2025 9:00 AM EST Office Visit [facility] [address] [place] [phone] Hillary Zamora MD Memory loss (Primary Dx); Type 2 diabetes mellitus with diabetic polyneuropathy, with long-term current use of insulin (HCC); Weight loss; Loss of appetite; Positive colorectal cancer screening using Cologuard test; Unintentional weight loss 02/04/2025 Orders Only GENERIC EXTERNAL DATA DEPARTMENT Provider, Generic External Data 02/04/2025 Telephone [facility] [address] [place] [address] Hillary Zamora MD Care Coordination 02/04/2025 Travel 01/30/[address] [address] Hillary Zamora MD chartprep 01/07/2025 Orders Only GENERIC EXTERNAL DATA DEPARTMENT Provider, Generic External Data 01/03/2025 10:00 AM EDT Office Visit [address] [address] Suzette Alvares MD Multiple joint pain (Primary Dx) 01/03/2025 Travel 12/19/[address] [address] Hillary Zamora MD 12/12/2024 Orders Only GENERIC EXTERNAL DATA DEPARTMENT Provider, Generic External Data 12/03/2024 9:00 AM EDT Office Visit [address] [address] Hillary Zamora MD Obstructive sleep apnea syndrome [...] health status; Morbid obesity (CMS/HCC) 12/03/2024 Telephone [facility] [address] [place] [phone] Hillary Zamora MD [facility] 12/03/2024 Travel 11/30/2024 Telephone [facility] [address] [place] [phone] Sheri Rivera MA 11/12/2024 Orders Only GENERIC EXTERNAL DATA DEPARTMENT Provider, Generic External Data from Last 3 Months Immunizations Immunization Administration [...] Mass Index 25.5 02/04/2025 9:06 AM EST Plan of Treatment Upcoming Encounters Date Type Department Care Team (Late st Contact Info) Description 02/15/2025 11:30 AM EST Clinical Support [facility] [address] [place] [phone] 03/18/2025 11:30 AM EST Office Visit [facility] [address] [place] [phone] Hillary Zamora MD [address] [place] [phone] Health Maintenance Due Date Last Done Comments CT Colonography 1963 Colonoscopy 1963 FIT 1963 Sigmoidoscopy 1963 RSV Patients and Patients Aged 60 years or older (1 - Risk 50-74 years 1-dose series) 08/31/2013 Dental Oral Exam 12/14/2023 06/13/2023 Dental Prophylaxis 12/16/2023 06/15/2023 Colorectal Cancer Screening 02/08/2024 FIT DNA/Cologuard 02/08/2024 02/07/2023 FOBT 02/08/2024 02/07/2023 Dental X-Ray: Bitewings 06/13/2024 06/13/2023 COVID-19 Vaccine ( season) 2024 04/02/2022, 01/10/2021, 06/04/2020, Additional history exists Diabetes: Hemoglobin A1C 05/05/2025 025, 12/03/2024, 07/18/2024, Additional history exists Alcohol/Substance Use Screening 12/03/2025 12/03/2024 Depression Screening 12/03/2025 12/03/2024, 12/04/19 25 Diabetes: Urine Protein Screening 12/03/2025 12/03/2024, 12/07/2023, 10/14/2022, Additional history exists Disability Screening 12/03/2025 12/03/2024 Lipid Panel 12/03/2025 12/03/2024, 10/05, 04/06/2022, Additional history exists SDOH Screening 12/03/2025 12/03/2024 Diabetes: Foot Exam 02/04/2026 02/04/2025, 02/04/2025, 02/04/2025, Additional history exists Tobacco Screening 02/04/2026 02/04/2025 Dental X-Ray: Full Mouth 06/13/2026 06/13/2023 Eye Exam 01/09/2027 01/09/2025, 03/07, 03/21/2024, Additional history exists DTaP/Tdap/Td Vaccines (4 - Td or Tdap) [...] on patient's age to complete this topic Goals Goal Patient Goal Type Associated Problems [...] chronic kidney disease No Hillary Zamora MD Procedures Procedure Name Priority Date/Time Associated Diagnosis Comments CBC Routine 02/04/2025 9:46 AM EST CBC WITH AUTO DIFFERENTIAL Routine 02/04/2025 9:46 AM EST Loss of appetite POCT GLYCOSYLATED HEMOGLOBIN (HGB A1C) Routine 02/04/2025 9:33 AM EST Type 2 diabetes mellitus with diabetic polyneuropathy, with long-term current use of insulin (HCC) POCT GLUCOSE Routine 02/04/2025 9:33 AM EST Type 2 diabetes mellitus with diabetic polyneuropathy, with long-term current use of insulin (HCC) GLUCOSE, WHOLE BLOOD Routine 01/07/2025 1:17 PM [...] AUTO DIFFERENTIAL Routine 11/12/2024 12:30 PM EDT PROPHYLAXIS - ADULT Routine 06/15/2023 1 [...] Maintenance Results * (ABNORMAL) CBC auto differential (02/04/2025 9:46 AM EST) Only the most recent of4 resultswithin the time period is included. White Blood Count 4.2(L) 4.8 - 10.8 X10*3/uL [facility] Red Blood Count 4.70 4.60 - 5.80 X10*6/uL [facility] Hemoglobin 15.0 14.0 - 18.0 g/dl [facility] Hematocrit 45.2 42.0 - 52.0 % [facility] Mean Corpuscular Volume 96.2 80.0 - 98.0 fL [facility] Mean Corpuscular Hemoglobin 31.9 27.0 - 33.0 pg [facility] Mean Corpuscular HGB Conc 33.2 31.0 - 36.0 g/dl [facility] Red Cell Distribution Width 13.1 11.0 - 16.0 % [facility] Platelet Count 181 160 - 400 X10*3/uL [facility] Mean Platelet Volume 9.7 9.4 - 12.4 fL [facility] Neutrophils Percent Auto 48.7 45 - 73 % [facility] Imm Gran Pct Auto 0.5(H) 0.0 - 0.4 % [facility] Lymphocytes Percent Auto 38.2 20 - 40 % [facility] Monocytes Percent Auto 8.1 2 - 11 % [facility] Eosinophils Percent Auto 3.3 0 - 4 % [facility] Basophils Percent Auto 1.2 0 - 2 % [facility] NRBC Pct Auto 0.0 0.0 - 0.2 /100WBC [facility] Neutrophils Absolute Auto 2.1 2.0 - 8.3 x10*3/uL [facility] Imm Gran Abs Auto 0.02 0.00 - 0.03 X10*3/uL [facility] Lymphocytes Absolute Auto 1.6 1.2 - 4.9 X10*3/uL [facility] Monocytes Absolute Auto 0.3 0.1 - 1.2 X10*3/uL [facility] Eosinophils Absolute Auto 0.1 0.0 - 0.4 X10*3/uL [facility] Basophils Absolute Auto 0.1 0.0 - 0.2 X10*3/uL [facility] NRBC Abs Auto 0.000 0.0 - 0.012 X10*3/uL [facility] Blood Venous blood specimen / Unknown 02/04/2025 9:46 AM EST 02/04/2025 11:16 AM EST us Hillary Zamora MD LAB BLOOD ORDERABLES Final Result [facility] [address] [place] [phone] * (ABNORMAL) CBC (02/04/2025 9:46 AM EST) White Blood Count 4.6(L) 4.8 - 10.8 X10*3/uL [facility] Red Blood Count 4.57(L) 4.60 - 5.80 X10*6/uL [facility] Hemoglobin 14.7 14.0 - 18.0 g/dl [facility] Hematocrit 44.3 42.0 - 52.0 % [facility] Mean Corpuscular Volume 96.9 80.0 - 98.0 fL [facility] Mean Corpuscular Hemoglobin 32.2 27.0 - 33.0 pg [facility] Mean Corpuscular HGB Conc 33.2 31.0 - 36.0 g/dl [facility] Red Cell Distribution Width 13.1 11.0 - 16.0 % [facility] Platelet Count 179 160 - 400 X10*3/uL [facility] Mean Platelet Volume 10.0 9.4 - 12.4 fL [facility] NRBC Pct Auto 0.0 0.0 - 0.2 /100WBC [facility] NRBC Abs Auto 0.000 0.0 - 0.012 X10*3/uL [facility] 02/04/2025 9:46 AM EST 02/04/2025 11:16 AM EST us Generic External Data Provider LAB BLOOD ORDERAB LES Final Result Performing Organization Address City/State/[facility] Co de Phone Number [facility] [address] [place] [phone] * (ABNORMAL) POCT glycosylated hemoglobin (Hgb A1c) (02/04/2025 9:33 AM EST) Only the most recent of2 resultswithin the time period is included. Hemoglobin A1C 8.4(A) 4.0 - 5.7 % [employer] Lot # [id number] Lot# Expiration Date Blood Capillary blood specimen / Unknown 02/04/2025 9:33 AM EST Hillary Zamora MD POINT OF CARE TEST ENTER/E DIT ORDERABLES Final Result * POCT glucose manually resulted (02/04/2025 9:33 AM EST) Only the most recent of2 resultswithin the time period is included. Glucose Blood, POC 181 60 - 200 mg/dL [employer] Lot # [id number] Lot# Expiration Date Blood Capillary blood specimen / Unknown 02/04/2025 9:33 AM EST Hillary Zamora MD POINT OF CARE TEST ENTER/E DIT ORDERABLES Final Result * (ABNORMAL) Glucose, Whole Blood (01/07/2025 1:17 PM EST) Glucose, Whole Blood 188(H) 60 - 115 mg/dL [facility] Comment:METER #: [id number] Testing performed in the Endocrinology Department [address] , [address], [facility]. 01/07/2025 1:17 PM EST 01/07/2025 1:34 PM EST us Generic External Data Provider LAB BLOOD ORDERAB LES Final Result Performing Organization Address City/[facility]/ZIP Co de Phone Number [facility] [address] [place] [phone] * (ABNORMAL) Basic Metabolic Panel (01/07/2025 12:17 PM EST) Only the most recent of2 resultswithin the time period is included. Sodium 140 135 - 145 mmol/L [facility] Potassium 4.6 3.3 - 5.1 mmol/L [facility] Chloride 105 96 - 108 mmol/L [facility] Carbon Dioxide 29 22 - 29 mmol/L [facility] Anion Gap 11(L) 12 - 20 [facility] Urea Nitrogen (BUN) 11 9 - 16 mg/dL [facility] Creatinine, Serum 0.69 0.5 - 1.4 mg/dL [facility] Estimated Glomerular Filt Rate >60 [facility] Comment:Chronic Kidney Disea se: Estimated GFR < 60 mL/min/1.88v1Qslvpg Kidney Disease: Estimated GFR < 15 mL/min/1.73m2 Glucose 187(H) 60 - 115 mg/dL [facility] Calcium 9.5 8.4 - 10.2 mg/dL [facility] 01/07/2025 12:1 7 PM EST 01/07/2025 12:17 PM EST us Generic External Data Provider LAB BLOOD ORDERAB LES Final Result [facility] [address] [place] [phone] * PSA,Total (12/12/2024 7:37 AM EDT) Pathologist [facility] Prostate Specific Antigen 0.66 <0.05 - 4.0 ng/mL [facility] Comment:PSA methodology: [facility] Alimarkty i ChemiluminescentMicroparticle Immunoassay (CMIA) 12/12/2024 7:37 AM EDT 12/12/2024 7:37 AM EDT us Generic External Data Provider LAB BLOOD ORDERAB LES Final Result Performing Organization Address [facility] Co de Phone Number [facility] [address] [place] [phone] * Vitamin B12 (Cobalamin) and Folate Panel, Serum (12/03/2024 9:41 AM EDT) [facility] Vitamin B12 429 200 - 900 pg/mL [facility] Comment:NORMAL 200-900 PG/ML INDETERMINATE 160-199 PG/ML DEFICIENT < 160 PG/ML Folate 10.5 > or = 4.0 ng/mL [facility] Comment:Reference Values:> o r = [...] BLOOD ORDERABLES Final Result Performing Organization Address [facility] Co de Phone Number [facility] [address] [place] [phone] * TSH with Reflex to Free T4 (12/03/2024 9:41 AM EDT) Pathologist [facility] TSH reflex Free T4 1.62 0.32 - 4.0 uIU/mL [facility] Blood Venous blood specimen / Unknown 12/03/2024 9:41 AM EDT 12/03/2024 11:13 AM EDT Hillary Zamora MD LAB BLOOD ORDERABLES Final Result Performing Organization Address [facility]/ZIP Co de Phone Number [facility] [address] [place] [phone] * Albumin, Random Urine W/Creatinine (12/03/2024 9:41 AM EDT) Pathologist [facility] Creatinine, Urine 49.28 mg/dL [facility] Microalbumin Urine <5.0 mg/L [facility] Microalbum Creatinine Ratio Ur TNP <30 ug/mg cr [facility] Comment:Unable to calculate albumin/creatinine ratio due to lowmicroalbumin or creatinine result. Urine 12/03/2024 9:41 AM EDT 12/03/2024 11:02 AM EDT Hillary Zamora MD LAB URINE ORDERABLES Final Result Performing Organization Address [facility] de Phone Number [facility] [address] [place] [address] [phone] * Iron And Total Iron Binding Capacity (12/03/2024 9:41 AM EDT) Iron 106 45 - 160 mcg/dL [facility] Total Iron Binding Capacity 280 228 - 428 mcg/dL [facility] Percent Iron Saturation 38 15 - 50 % [facility] Unsaturated Iron Binding 174 ug/dL [facility] Blood Venous blood specimen / Unknown 12/03/2024 9:41 AM EDT 12/03/2024 11:13 AM EDT Hillary Zamora MD LAB BLOOD ORDERABLES Final Result Performing Organization Address City/[facility] Co de Phone Number [facility] [address] [place] [phone] * Ferritin (12/03/2024 9:41 AM EDT) Pathologist [facility] Ferritin 148 20 - 250 ng/mL [facility] Blood Venous blood specimen / Unknown 12/03/2024 9:41 AM EDT 12/03/2024 11:13 AM EDT Hillary Zamora MD LAB BLOOD ORDERABLES Final Result Performing Organization Address [facility] Co de Phone Number [facility] [address] [place] [phone] * CEA (12/03/2024 9:41 AM EDT) [facility] Carcinoembryonic Antigen <1.73 ng/mL [facility] Comment:CEA Reference Range: 93.4% Non-Smokers [...] BLOOD ORDERABLES Final Result Performing Organization Address [facility] Co de Phone Number [facility] [address] [place] [phone] * Hepatic Function Panel (12/03/2024 9:41 AM EDT) Pathologist [facility] Bilirubin, Total 0.5 0.0 - 1.0 mg/dL [facility] Bilirubin, Direct 0.2 0.0 - 0.5 mg/dL [facility] Aspartate Amino Transferase 32 5 - 37 U/L [facility] Alanine Aminotransferase 35 0 - 40 U/L [facility] Total Protein 6.9 6.5 - 8.0 g/dL [facility] Albumin Level 4.4 3.5 - 5.0 g/dL [facility] Alkaline Phosphatase 85 39 - 117 U/L [facility] Blood Venous blood specimen / Unknown 12/03/2024 9:41 AM EDT 12/03/2024 11:13 AM EDT us Hillary Zamora MD LAB BLOOD ORDERABLES Final Result [facility] [address] [place] [phone] * (ABNORMAL) Lipid Panel, Standard (12/03/2024 9:41 AM EDT) Triglycerides 80 <150 mg/dL [facility] Comment:Desirable Triglyceri de: less than 150 mg/dLBorderline High Triglyceride 150-199 mg/dLHigh Triglyceride: 200-499 mg/dLVery High Triglyceride: greater than or equal to 5OO mg/dL Cholesterol 97 <200 mg/dL [facility] Comment:Desirable Cholestero l: less than 200 mg/dLBorderline High Cholesterol: 200-239 mg/dLHigh Cholesterol: greater than 239 mg/dL LDL Cholesterol Calculated 49 <100 mg/dL [facility] Comment:Desirable LDL: less than 100 mg/dLNear Optimal/Above Optimal LDL: 110- 129 mg/dLBorderline High LDL: 130-159 mg/dLHigh LDL: 160-189 mg/dLVery High LDL: greater than or equal to 190 mg/dL HDL Cholesterol 32(L) >40 mg/dL [facility] Comment:Desirable HDL: great er than 40 mg/dL Note: This HDL assay may give artificially low results in patients with liver disease. Blood Venous blood specimen / Unknown 12/03/2024 9:41 AM EDT 12/03/2024 11:13 AM EDT us Hillary Zamora MD LAB BLOOD ORDERABLES Final Result [facility] [address] [place] [phone] * XR Ribs 3 Views Right with Chest 1 View (11/12/2024 1:30 PM EDT) Anatomical Region Laterality Modality Radiographic Claire ging 11/12/2024 1:30 PM EDT Narrative 11/12/2024 1:49 PM EDT [address] [address] XRay Report Signed Patient: Abraham Hoover MR#: [id number] : 1965 Acct:[id number] Age/Sex: 59 / M ADM Date: 11/12/24 Loc: HO.ED Attending Dr: Ordering Physician: Juan Carlos Patricio DO Date of Service: 11/12/24 Procedure(s): XR ribs RT min 3V w CXR1V Accession Number(s): [id number] cc: Hillary Zamora MD; Juan Carlos Patricio [...] Sherman MD in OV> 11/12/24 1347 DD/ 29 TD/TT: 11/12/241338 Bath Mixer: Procedure Note Donotuseinterpreter, Image - 11/12/[address] [address] XRay Report Signed Patient: Vicente Ansari OtilioMR#: [id number] : 1965Acct:[id number] Age/Sex: 59 / MADM Date: 11/12/24 Loc: HO.ED Attending Dr: Ordering Physician: Juan Carlos Patricio DO Date of Service: 11/12/24 Procedure(s): XR ribs RT min 3V w CXR1V Accession Number(s): [id number] cc: Hillary Zamora MD; Juan Carlos Patricio [...] Sherman MD in OV> 11/12/24 1347 DD/ TD/TT: 11/12/241338 Bath Mixer: [facility] External Provider IMG XR PROCEDURES Edited Result - Final * CT Cervical Spine w/o Contrast (11/12/2024 12:56 PM EDT) Anatomical Region Laterality Modality Spine, C-spine Computed Tomogra phy 11/12/2024 12:5 6 PM EDT Narrative 11/12/2024 1:30 PM EDT [place] [address] [address] Scan Report Signed Patient: Abraham Hoover MR#: [id number] : 1965 Acct:[id number] Age/Sex: 59 / M ADM Date: 11/12/24 Loc: HO.ED Attending Dr: Ordering Physician: Farhana Silverman Date of Service: 11/12/24 Procedure(s): CT cervical spine wo IV con Accession Number(s): [id number] cc: Hillary Zamora MD; Farhana Silverman Report Number: [id number]: Total DLP = 531.00 mGy-cm Reason for [...] 11/12/24 1327 DD/ 1256 TD/TT: 11/12/24 1305 Bath Mixer: Procedure Note Donotuseinterpreter, Image - 11/12/[address] [place] [address] [address] Scan Report Signed Patient: Vicente Ansari OtilioMR#: [id number] : 1965Acct:[id number] Age/Sex: 59 / MADM Date: 11/12/24 Loc: HO.ED Attending Dr: Ordering Physician: Farhana Silverman Date of Service: 11/12/24 Procedure(s): CT cervical spine wo IV con Accession Number(s): [id number] cc: Hillary Zamora MD; Farhana Silverman Report Number: [id number]: Total DLP = 531.00 mGy-cm Reason for [...] 11/12/24 1327 DD/ 1256 TD/TT: 11/12/24 1305 Bath Mixer: [facility] External Provider IMG CT PROCEDURES Edited Result - Final * CT Head w/o Contrast (11/12/2024 12:56 PM EDT) Anatomical Region Laterality Modality Head, Neck Computed Tomogra phy 11/12/2024 12:5 6 PM EDT Narrative 11/12/2024 1:28 PM EDT [place] [address] [address] Scan Report Signed Patient: Abraham Hoover MR#: [id number] : 1965 Acct:[id number] Age/Sex: 59 / M ADM Date: 11/12/24 Loc: HO.ED Attending Dr: Ordering Physician: Farhana Silverman Date of Service: 11/12/24 Procedure(s): CT head/brain wo IV con Accession Number(s): [id number] cc: Hillary Zamora MD; Farhana Silverman Report Number: [id number]: Total DLP = 732.00 mGy-cm Reason for [...] 11/12/24 1326 DD/ 1256 TD/TT: 11/12/24 1305 Bath Mixer: Procedure Note Donotuseinterpreter, Image - 11/12/[address] [address] [address] Scan Report Signed Patient: Hoang HooveroMShilpi#: [id number] : 1965Acct:[id number] Age/Sex: 59 / MADM Date: 11/12/24 Loc: HO.ED Attending Dr: Ordering Physician: Farhana Silverman Date of Service: 11/12/24 Procedure(s): CT head/brain wo IV con Accession Number(s): [id number] cc: Hillary Zamora MD; Farhana Silverman Report Number: [id number]: Total DLP = 732.00 mGy-cm Reason for [...] 11/12/24 1326 DD/ 1256 TD/TT: 11/12/24 1305 Bath Mixer: us [facility] External Provider IMG CT PROCEDURES Edited Result - Final * (ABNORMAL) Prothrombin Time-INR (11/12/2024 12:30 PM EDT) Pathologist [facility] Prothrombin Time 14.6(H) 10.9 - 12.4 SEC [facility] INTERNATIONAL NORM RATIO 1.3(H) 0.9 - 1.1 [facility] Comment:INTERNATIONAL NORMAL IZED RATIO (INR) [...] Provider LAB BLOOD ORDERAB LES Final Result [facility] [address] [place] [phone] * (ABNORMAL) Comprehensive Metabolic Panel (11/12/2024 12:30 PM EDT) Pathologist [facility] Sodium 141 135 - 145 mmol/L [facility] Potassium 4.6 3.3 - 5.1 mmol/L [facility] Chloride 108 96 - 108 mmol/L [facility] Carbon Dioxide 25 22 - 29 mmol/L [facility] Anion Gap 13 12 - 20 [facility] Urea Nitrogen (BUN) 11 9 - 16 mg/dL [facility] Creatinine, Serum 0.79 0.5 - 1.4 mg/dL [facility] Creatinine Clr Calc Pharmacy 107.7 [facility] Comment:eGFR (calculated fro m the MDRD study equation) and eCrCl(calculated from the Cockcroft-Gault equation) are based ondifferent parameters and may not yield comparable results.If eCrCl result is absurd, please check patient'sheight/weight. Estimated Glomerular Filt Rate >60 [facility] Comment:Chronic Kidney Disea se: Estimated GFR < 60 mL/min/1.03w6Sckemc Kidney Disease: Estimated GFR < 15 mL/min/1.73m2 Glucose 173(H) 60 - 115 mg/dL [facility] Calcium 9.2 8.4 - 10.2 mg/dL [facility] Bilirubin, Total 0.7 0.0 - 1.0 mg/dL [facility] Aspartate Amino Transferase 27 5 - 37 U/L [facility] Alanine Aminotransferase 29 0 - 40 U/L [facility] Total Protein 6.5 6.5 - 8.0 g/dL [facility] Albumin Level 4.2 3.5 - 5.0 g/dL [facility] Alkaline Phosphatase 60 39 - 117 U/L [facility] 11/12/2024 12:3 0 PM EDT 11/12/2024 12:32 PM EDT us Generic External Data Provider LAB BLOOD ORDERAB LES Final Result [facility] [address] [place] [phone] * (ABNORMAL) Cologuard?? colon cancer screening (02/07/2023 7:30 AM EST) Cologuard Result Positive( A) Negative 02/15/2023 9:47 AM EST [facility] (CLIA #:[id number]) Comment: POSITIVE TEST RESULT. A positive Cologuard [...] (Fabiano Ross al, N Engl J Med 2014;370(14):1075-5287.) Cologuard may produce a false negative or false positive result (no colorectal cancer or precancerous polyp present at colonoscopy follow up). A negative Cologuard test result does not guarantee the absence of CRC or advanced adenoma (pre-cancer). The current Cologuard screening interval is every 3 years. ([place] [employer] Society and U.S. Multi-Society Task Force). Cologuard performance data in a 10,000 patient pivotal study using colonoscopy as the reference method can be accessed at the following location: www.[employer]/results. Additional description of the Cologuard test process, warnings and precautions can be found at www.[employer].com. Stool specimen (specimen) 02/07/2023 7:30 AM EST 02/08/2023 3:13 PM EST us Hillary Zamora MD LAB MOLECULAR DIAGNOSTICS ORDERABLES Final Result [facility] (CLIA #:[id number]) [place] [address], * Hepatitis C Antibody Reflex (10/14/2022 11:04 AM EDT) Hepatitis C Antibody Nonreactive Nonreactive [facility] Comment:Antibodies to HCV no t detected; does not exclude early acuteHCV infection. 10/14/2022 11:0 4 AM EDT 10/14/2022 12:57 PM EDT Hillary Zamora MD LAB BLOOD ORDERABLES Final Result Performing Organization Address [facility]/ZIP Co de Phone Number [facility] [address] [place] [phone] * HIV Ab/Ag ([facility]) (10/14/2022 11:04 AM EDT) [facility] HIV AB/AG Nonreactive Nonreactive [facility] Comment:HIV-1 p24 Ag and/or HIV-1/HIV-2 Ab not detected.A test result that is nonreactive does not exclude thepossibility of exposure to or infection with HIV-1 and/orHIV-2. Nonreactive results in this assay for individualswith prior exposure to HIV-1 and/or HIV-2 may be due toantigen and antibody levels that are below the limit ofdetection of this assay.[employer] HIV Ag/Ab Combo assay result andsupplemental assay results should be interpreted inconjunction with the patient's clinical presentation,history and other laboratory results. If the results areinconsistent with clinical evidence, additional testing issuggested to confirm the result. 10/14/2022 11:0 4 AM EDT 10/14/2022 12:57 PM EDT Hillary Zamora MD LAB BLOOD ORDERABLES Final Result Performing Organization Address [facility]/ZIP Co de Phone Number [facility] [address] [place] [phone] * Hm Diabetes Eye Exam (06/22/2022) [facility] Eye Exam Normal Normal Comment:[facility] Inocente Pitt MD HEALTH MAINTENANCE Final Result from Last 3 Months or Most Recently Relevant to Health Maintenance Additional Health Concerns Active Problems Noted Date [...] 02/04/2025 Patient has chronic kidney disease 02/04/2025 Insurance [facility]LY [facility] [address] [place] [phone] [place] [address] Advance Directives Documents on File Type Date Recorded Patient Salt Lifter Expl anation Advance Directives and Living Will 12/04/2024 Health Care Proxy 12/03/24 Care Teams [employer] Weapons Sergeant Relationship Specialty Start Date End Date [place], MD Hillary [address] [place] [phone] PCP - General Family Medicine 03/07/18 Orlando Warner MD [address] [place] [address] Endocrinology 03/29/24 Layla Marrufo NP [address] [place] [address] Urology 04/05/24 Meri Mauricio OD [address] [place] [address] Optometry 04/17/24 Matias Marcelino MD [address] [place] [address] Cardiology 09/06/24 Teetee Zacarias FACILITIES MAINTENANCE WORKER Endocrinology 03/29/24 Clau Torres [facility] Ophthalmology 01/09/25
[2025-02-04 12:28] LABS: HIV Num 1 0.07 S/CO (0.00-0.99)
[2025-02-04 12:33] LABS: Anion Gap 12 (12-20); Blood Urea Nitrogen 11 mg/dL (9-16); Calcium 9.4 mg/dL (8.4-10.2); Carbon Dioxide 28 mmol/L (22-29); Chloride 107 mmol/L (96-108); Estimated Glomerular Filt Rate > 60; Potassium 4.5 mmol/L (3.3-5.1); Sodium 142 mmol/L (135-145)
== END 2025-02-04 09:39 | disposition home or self-care (01) ==
LOC: HO.HHCL 09:38
PROVIDERS: PCP Family Medicine; Visit Provider Family Medicine
DX: Z11.4 Encounter for screening for human immunodeficiency virus [HIV] (principal); R63.0 Anorexia; R63.4 Abnormal weight loss; I48.19 Other persistent atrial fibrillation
CPT/HCPCS: 36415; 80048; 85025; 85027; 87389

== ENCOUNTER 2025-02-18 11:34 | Outpatient (AMB) | payer OTHER, SELFPAY ==
--- NOTE | 2025-02-18 12:18 | A.OFFVIS_ITS ---
Intake Intake Visit Reasons: T2DM Yacht Captain Required: No Accompanied by: Self / Same As Patient Allergies Penicillins (PENICILLINS) Allergy (Unknown, Verified 01/07/25 13:12) UNKNOWN metformin Adverse Reaction (Unknown, Verified 01/07/25 13:12) diarrhea HPI Comprehensive Diabetes Asmnt Most Recent Diabetes Results: 2 Microalb/Creat Ratio TNP 12/03/24 Cholesterol, (<200) 97 mg/dL 12/03/24 HDL Cholesterol, (>40) 32 mg/dL L 12/03/24 Triglycerides, (<150) 80 mg/dL 12/03/24 Creatinine, (0.5-1.4) 0.66 mg/dL 02/04/25 BUN, (9-16) 11 mg/dL 02/04/25 Sodium, (135-145) 142 mmol/L 02/04/25 Potassium, (3.3-5.1) 4.5 mmol/L 02/04/25 Chloride, (96-108) 107 mmol/L 02/04/25 Carbon Dioxide, (22-29) 28 mmol/L 02/04/25 Calcium, (8.4-10.2) 9.4 mg/dL 02/04/25 AST, (5-37) 32 U/L 12/03/24 ALT, (0-40) 35 U/L 12/03/24 Total Protein, (6.5-8.0) 6.9 g/dL 12/03/24 Albumin, (3.5-5.0) 4.4 g/dL 12/03/24 [facility] Medical History Pre-operative cardiovascular examination Morbid obesity Type 2 diabetes mellitus with unspecified complications Essential hypertension Nonischemic cardiomyopathy Typical atrial flutter Hyperparathyroidism CLAUDIA (obstructive sleep apnea) Vitamin D deficiency Diabetic nephropathy associated with type 2 diabetes mellitus nursing home (current) use of insulin Hypertension Dyslipidemia Obesity Diabetes type 2, uncontrolled Paroxysmal A-fib Surgical History History of radiofrequency ablation procedure for cardiac arrhythmia Hx of colonoscopy Family History Father Cancer Diabetes CVD (cardiovascular disease) Mother Diabetes Social History Household Members: None Household Members Other:: Alcohol intake: never Patient Tobacco Use Status: Former Tobacco user Substance Use Type: Crack/Cocaine and Marijuana Current occupational status: disabled Current occupation: left handed Assessment & Plan Assessment & Plan (1) Diabetes type 2, uncontrolled: Code(s): E11.65 - Type 2 diabetes mellitus with hyperglycemia Qualifiers: Glycemic state: with hyperglycemia Qualified Code(s): E11.65 - Type 2 diabetes mellitus with hyperglycemia Plan: Personal Continuous Glucose Monitor: Patients CGM information reviewed, Pt uses [employer] with phone ronny Patient's glucose levels have improved, patient reports he has not eating because he lacks appetite. Glucose has been within range 70% of the time Reports he has not taken Humulin U 500 consistently, for the past several weeks due to concern for hypoglycemia. Reports he will take Humulin U 500 55 units if glucose is above 180 mg/dL, only will take insulin once a day Reports he has takes all oral medications and he is taking Trulicity weekly, could not remember what the dose was. Message sent to Dr. Warner to clarify what dose patient is on prescription does not match what is stated in Dr. Warner's visit note from 01/07/2025 Patient is still not interested in insulin pump therapy. He reports he has upcoming appointments with service consultant, and neurologist due to lack of appetite Patient able to insert sensor independently at home without issue.? Patient will follow-up with breastfeeding educator in 3 months Message sent to Dr. Warner to clarify prescription for Trulicity Portions of this note were created using voice recognition software, please excuse any words or phrases that may have been misinterpreted. Coding Level of Care Code Est Pt Level 1 (37135) Diagnoses Uncontrolled type 2 diabetes mellitus with hyperglycemia E11.65 Glycemic state: with hyperglycemia
== END 2025-02-18 12:20 | disposition home or self-care (01) ==
LOC: HO.ENCR 11:34
PROVIDERS: PCP Family Medicine; Visit Provider Registered Nurse Diabetes Educator
DX: E11.65 Type 2 diabetes mellitus with hyperglycemia (principal)

== ENCOUNTER → 2025-02-18 11:34 | Outpatient (BNVA) | payer OTHER, SELFPAY | PROVIDERS: PCP Family Medicine; Visit Provider Registered Nurse Diabetes Educator | DX: E11.65 Type 2 diabetes mellitus with hyperglycemia (principal) | CPT/HCPCS: 99211 ==

== ENCOUNTER 2025-02-21 07:11 | Outpatient (AMB) | payer OTHER, SELFPAY ==
--- OUTSIDE RECORDS SUMMARY | 2025-02-21 07:13 | XMS_ITS | Encounter Summary ---
Author Organization [email or web address] Address [address] [place] [address] Care Team Providers Care Pupil Personnel Services Director Name Role Phone Hillary Zamora MD Primary Care Provider Orlando Warner MD Unavailable Layla Marrufo NP Unavailable Meri Mauricio OD Unavailable Matias Marcelino MD Unavailable Encounter Details Date Type Department Care Team (Latest Contact Info) Description 12/23/2020 Abstract [facility] CONVERSIONS Dental, Provider, DDS Social [...] Care Team (Late st Contact Info) Description 03/18/2025 11:30 AM EST Office Visit [facility] MEDICINE [address] [place], [place] [phone] Hillary Zamora MD [address] [place], [place] [phone] 03/19/2025 12:45 PM EST Office Visit [facility] ADULT DENTAL [address] [place], [place] [phone] Raquel Olvera [address] [place] [address] 05/23/2025 2:00 PM EDT Office Visit [facility] OPTOMETRY [address] [place] [address] Meri Mauricio, OD [address] [place] [address] documented as of this encounter Visit Diagnoses Not on filedocumented in this encounter Care Teams Pupil Personnel Services Director Relationship Specialty Start Date End Date Hillary Zamora MD [address] [place] [address] PCP - General Family Medicine 03/07/18 Orlando Warner MD [address] [place] [address] Endocrinology 03/29/24 Layla Marrufo NP [address] [place] [address] Urology 04/05/24 Meri Mauricio, OD [address] [place] [address] Optometry 04/17/24 Matias Marcelino MD [address] [place] [address] Cardiology 09/06/24 Teetee Zacarias TECHNICAL ADMINISTRATIVE ASSISTANT Endocrinology 03/29/24 [facility] Op[facility] 01/09/25 documented as of this encounter
--- OUTSIDE RECORDS SUMMARY | 2025-02-21 07:13 | XMS_ITS | Encounter Summary ---
Author Organization [employer] Address [address] [facility] 7t [place] [address] Care Team Providers Care Sales Consulting Director Name Role Phone Hillary Zamora MD Primary Care Provider [phone] Orlando Warner MD Unavailable Layla Marrufo NP Unavailable Meri Mauricio OD Unavailable Matias Marcelino MD Unavailable [phone] Reason for Visit * Reason Comments Med Refill Encounter Details Date Type Department Care Team (Late st Contact Info) Description 02/20/2025 Refill [facility] MEDICINE [address] [place], [place] [phone] Hillary Zamora MD [address] [place], [place] [phone] Chronic atrial fibrillation (CMS/HCC) (HCC) Social History Tobacco Use Types Packs/Day Years [...] the past 12 months, has t he [employer], gas, oil or water company threatened to [...] Description 03/18/2025 11:30 AM EST Office Visit [facility] MEDICINE [address] [place] [address] Hillary Zamora MD [address] [place] [address] 03/19/2025 12:45 PM EST Office Visit [facility] ADULT DENTAL [address] [place] [address] Wade Raquel [address] [place] [address] 05/23/2025 2:00 PM EDT Office Visit [facility] OPTOMETRY [address] [place] [address] Meri Mauricio, GERTRUDE [address] [place] [address] documented as of this encounter Goals Goal [...] chronic kidney disease No Hillary Zamora MD Weekly blood pressure task Care Plan Weekly blood pressure task No Lety Lopez RN Weekly blood pressure task Care Plan Weekly blood pressure task No Lety Lopez RN Patient has chronic kidney disease Care Plan Patient has chronic kidney disease No Lety Lopez RN Patient has chronic kidney disease Care Plan Patient has chronic kidney disease No Lety Lopez RN Weekly blood pressure task Care Plan Weekly blood pressure task No Lety Lopez RN Weekly blood pressure task Care Plan Weekly blood pressure task No Lety Lopez RN Patient has chronic kidney disease Care Plan Patient has chronic kidney disease No Lety Lopez RN Patient has chronic kidney disease Care Plan Patient has chronic kidney disease No Lety Lopez RN documented as of this encounter Visit Diagnoses Diagnosis Chronic atrial fibrillation (CMS/HCC) (HCC) Atrial fibrillation documented in this encounter Additional Health Concerns [...] 02/04/2025 Patient has chronic kidney disease 02/04/2025 Weekly blood pressure task 02/15/2025 Weekly blood pressure task 02/15/2025 Patient has chronic kidney disease 02/15/2025 Patient has chronic kidney disease 02/15/2025 Weekly blood pressure task 02/15/2025 Weekly blood pressure task 02/15/2025 Patient has chronic kidney disease 02/15/2025 Patient has chronic kidney disease 02/15/2025 Assessment Noted Time PHQ-9 Depression Total Score: 0 12/04/19 8:51 AM EDT documented as of this encounter Care Teams Sales Consulting Director Relationship Specialty Start Date End Date Hillary Zamora MD [address] [place] [address] PCP - General Family Medicine 03/07/18 Orlando Warner MD [address] [place] [address] Endocrinology 03/29/24 Layla Marrufo NP [address] [place] [address] Urology 04/05/24 Meri Mauricio OD [address] [place] [address] Optometry 04/17/24 Matias Marcelino MD [address] 3rd [place] [address] Cardiology 09/06/24 Teetee Zacarias LABORER SHELLF[employer] PROCESSING Endocrinology 03/29/24 [facility] Op[facility] 01/09/25 documented as of this encounter
--- OUTSIDE RECORDS SUMMARY | 2025-02-21 07:13 | XMS_ITS | Encounter Summary ---
Author Organization [employer] Address [address] 7[address] [place] [address] Care Team Providers Care Scouring Pads Supervisor Name Role Phone Hillary Zamora MD Primary Care Provider [phone] Orlando Warner MD Unavailable Layla Marrufo NP Unavailable Meri Mauricio OD Unavailable [phone] Matias Marcelino MD Unavailable Encounter Details Date Type Department Care Team (Late st Contact Info) Description 04/17/2024 Orders Only [facility] MEDICINE [address] [place], [place] [phone] Hillary Zamora MD [address] [place], [place] [phone] Type 2 diabetes mellitus with hyperglycemia, with [...] Description 03/18/2025 11:30 AM EST Office Visit [facility] MEDICINE [address] [place] [address] Hillary Zamora MD [address] [place] [address] 03/19/2025 12:45 PM EST Office Visit [facility] ADULT DENTAL [address] [place] [address] Wade Raquel [address] [place] [address] 05/23/2025 2:00 PM EDT Office Visit [facility] OPTOMETRY [address] [place] [address] Meri Mauricio, OD [address] [place] [address] documented as of this encounter Visit Diagnoses [...] documented as of this encounter Care Teams Scouring Pads Supervisor Relationship Specialty Start Date End Date Hillary Zamora MD [address] [place] [address] PCP - General Family Medicine 03/07/18 Orlando Warner MD [address] [place] [address] Endocrinology 03/29/24 Layla Marrufo NP [address] [place] [address] Urology 04/05/24 Meri Mauricio OD [address] [place] [address] Optometry 04/17/24 Matias Marcelino MD [address] 3rd [place] [address] Cardiology 09/06/24 Teetee Zacarias BILLIARD TABLE REPAIRER Endocrinology 03/29/24 [facility]au Torres [facility] Ophthalmology 01/09/25 documented as of this encounter
--- OUTSIDE RECORDS SUMMARY | 2025-02-21 07:13 | XMS_ITS | Data Portability ---
Author Organization [place] Address [address] [place] [address] Care Team Providers Care Senior Microsoft Net Developer Name Role Phone Unavailable Referring Provider [facility] Referring Provider [phone] Assessment Encounter Date Assessment Date Assessment LastModified by Organization Details LastModified Time 05/14/2022 05/14/2022 I provided real -time medical direction via phone for this encounter, and was available for additional phone based assistance as needed. I have reviewed and agree with the Assessment and Plan as documented by the Banquet Director. Patient given the opportunity to ask questions. [...] he has AFib. during the time the store sales consultant was there is heart rate generally stayed [...] As an addendum the patient called his principal android developer to clarify his dose. He was supposed to be on metoprolol 50 mg twice a day. Upon further discussion with his principal android developer he was referred to the emergency department [...] tablet,exte nded release 24 hr 2022 023 [facility], [address] [place] [address], [id number], 3 13:41:10 Patient TargetsNo targets recorded. Patient InstructionsNo instructions recorded. Reason for Referral None Reported. Medical Equipment None Reported. Allergies Allergen ID Allergen Name Allergen Category Reaction Reaction Severity Criticality Documentation Date Start Date Code Code System Note Provider Name and Address Organization Details Recorded Time 6917 Product containin g penicilli n (product) medicatio n Not available Not available Not available 01/03/2024 86103 8001 SNOMED Not Available [facility] - production [...] t Available Vitals Date Recorded Oxygen saturation Body temperature Respiratory rate Heart rate Systolic And Diastolic Provider Name and Address Organization Details Last Updated DateTime 3 97 % 98.4 [degF] 18 /min 108 /min 127/84 mm[Hg] Not Available [facility] 3 13:19:44 Social History None recorded. Functional Status None recorded. Mental Status None recorded. Family History Nothing Reported. Medical History No medical history recorded. Past Encounters Encounter ID Performer Location Encounter Start Date Encounter Closed Date Diagnosis/Indication Diagnosis SNOMED-CT Code Diagnosis ICD10 Code Diagnosis IMO Codes Diagnosis Note [id number] Abena Kent MD Main - [facility] [address] [place] [address] 05/14/2022 13:19:28 05/17/2022 10:39:10 Atrial fibrillation 81362769 I48.91 Health Concerns Section Related Observation LastModified by Organization Detai ls LastModified Time None Recorded Concern Status LastModified by Organization Details LastModified Time None Recorded Advance Directives Directive None Recorded Payers Insurance Date Sequence Insurance Name Policy Number Policy Patterson Covered Member ID Patterson Member ID Guarantor Name 05/10/2023 1 [facility] - DOS PRIOR TO 2022 - DUAL ELIGIBLE (MEDICARE REPLACEMENT/ADV ANTAGE - HMO) Abraham Vicente Ansari [id number] Abraham Vicente Ansari 05/10/2023 1 [facility] - DOS ON OR AFTER 2022 - DUAL ELIGIBLE - LONGTERM OPTIONS AND ONE CARE (MEDICARE REPLACEMENT/ADV ANTAGE - HMO) Abraham Ansari [id number] Abraham Ansari Notes Date Note Type Note Provider Name and Address Organization Details Recorded Time 05/14/2022 text/html HPI: ALLERGIC TO: PCN, METFORMIN. Patient with history of Afib with recent med change reporting HR 120's with slight dizziness. Recently seen 05/12/22 with complaints of chest pain [facility] [place] .................. .................. .................. .................. .................. .................. .................. ............... CRC Nursing Assessment: Comments: CRC RN did not require any additional information to process this visit. Abena Kent MD [address] [place] [address],[address], [place], [address], [facility] 05/14/2022 13:48:00
--- OUTSIDE RECORDS SUMMARY | 2025-02-21 07:13 | XMS_ITS | Encounter Summary ---
Author Organization [employer] Address [address] [place] [address] Care Team Providers Care Caustic Cresylate Shift Superintendent Name Role Phone Sera, Hillary ONTIVEROS Primary Care Provider [phone] Orlando Warner MD Unavailable [phone] Layla Marrufo NP Unavailable Meri Mauricio OD Unavailable [phone] Matias Marcelino MD Unavailable [phone] Encounter Details Date Type Department Care Team (Latest Contact Info) Description 02/19/2025 Travel Social History Tobacco Use Types Packs/Day [...] Description 03/18/2025 11:30 AM EST Office Visit [facility] MEDICINE [address] [place] [address] Hillary Zamora MD [address] [place] [address] 03/19/2025 12:45 PM EST Office Visit [facility] ADULT DENTAL [address] [place] [address] Wade, Raquel [address] [place] [address] 05/23/2025 2:00 PM EDT Office Visit [facility] OPTOMETRY [address] [place] [address] Meri Mauricio, GERTRUDE [address] [place] [address] documented as of this encounter Goals Goal Patient Goal Type Associated Problems Recent Progress Patient-Stated? Author Help patients manage their type 2 diabetes Care Plan Help patients manage their type 2 diabetes Alyce Aguilar MA Weekly blood pressure task Care Plan [...] documented as of this encounter Care Teams Caustic Cresylate Shift Superintendent Relationship Specialty Start Date End Date Hillary Zamora MD [address] [place] [address] PCP - General Family Medicine 03/07/18 Orlando Warner MD [address] [place] [address] Endocrinology 03/29/24 Layla Marrufo NP [address] [place] [address] Urology 04/05/24 Meri Mauricio OD [address] [place] [address] Optometry 04/17/24 Matias Marcelino MD [address] 3rd [place] [address] Cardiology 09/06/24 Teetee Zacarias AIR CONTROL/ANTI AIR WARFARE OFFICER Endocrinology 03/29/24 [facility] Op[facility] 01/09/25 documented as of this encounter
--- OUTSIDE RECORDS SUMMARY | 2025-02-21 07:14 | XMS_ITS | Clinical Summary ---
Author Organization [employer] Address [address] [facility] [address] [place] [address] Care Team Providers Care Animal Keeper Name Role Phone Sera, Hillary ONTIVEROS Primary Care Provider [phone] Orlando Warner MD Unavailable Layla Marrufo NP [...] BEFORE BREAKFAST 90 capsule 3 025 Active FREESTYLE LITE test stripIndication s:Type 2 diabetes mellitus with hyperglycemia, with long-term current use of insulin ([facility]) TEST BLOOD SUGAR SIX TIMES DAILY DIRECTED 200 strip 11 02/09/20 25 1:42 PM EST 025 Active atorvastatin (Lipitor) 80 MG tabletIndicatio ns:Type 2 diabetes mellitus with hyperosmolarity , uncontrolled ([facility]),Dyslipide sabrina TAKE 1 TABLET BY MOUTH AT BEDTIME 90 tablet 1 02/09/20 25 1:42 PM EST 08/27/2 025 Active dabigatran etexilate (Pradaxa) 150 MG capsuleIndicati ons:Chronic atrial fibrillation (CMS/HCC) (HCC) TAKE 1 CAPSULE BY MOUTH TWICE DAILY IN THE MORNING AND IN THE EVENING 60 capsule 5 025 Active baclofen (Lioresal) 10 MG tablet TAKE 1 TABLET BY MOUTH AT BEDTIME NEEDED FOR MUSCLE SPASMS 2022 Discontinued dabigatran etexilate (Pradaxa) 150 MG capsuleIndicati ons:Chronic atrial fibrillation (CMS/HCC) (HCC) TAKE 1 CAPSULE BY MOUTH TWICE DAILY IN THE MORNING AND IN THE EVENING 60 capsule 5 02/09/20 25 1:42 PM EST 025 2024 Discontinued Active Problems Patient Care Coordination No te Formatting of this note migh t be different from the original. [facility] [place] Supervisor Coke Handling: Lizz, member services number [phone], provider services line, , option 4 Tax Economist Agency: [facility] Problem Noted Date Diagnosed Date Memory loss 02/04/2025 Overview (02/15/2025): Pt concerned with memory loss first reported 10/2022 and has continue dot be concerned about this. His mother had Alzheimer dementia. He did not follow up for mini mental status exam. Feb 04, 2025 pt does not remember several things about his current plan of care and is unaware of his memory deficiencies. Will schedule for MOCA and neurology appointment. For example he keeps missing appointment because he states he was not aware. He has many phone messages that he has not read. He is overwhelmed with spam message that flood his phone which may be making it difficult to see his doctor texts. Lab Results Component Value Date VITB12 429 12/03/2024 TSH 1.62 12/03/2024 Syphilis negative 2018 MOCA 02/15/25 26 out of 30 Assessment & Plan (02/04/2025 10:18 AM EST): [...] negative 2019 Orders: Referral to Neurology; Future Cord compression [...] atrial fibrillation 01/2025. He has appointment with [facility] 02/26/25 at 11:30. His father had [...] atrial fibrillation 01/2025. He has appointment with [facility] 02/26/25 at 11:30. His father had a history of colon cancer. We will call cardiology 02/04/25 to remind of clearance for his upcomming appointment Feb 26, 2025 with GI. - no anemia -PSA 0.56, 09/27/24 -ordered TSH and CEA 12/03/24 both normal -last HIV was negative 2022, will repeat 12/03/24 negative Assessment & Plan [...] procedure -he is scheduled to see the core driller helper September 07, 2023 -he is scheduled for [...] 12/03/24 negative Has GI follow up at [facility] 02/26/25 and we will call cardiology 02/04/25 to remind them of clearance as he had ablation for atrial fibrillation 01/2025 Assessment & Plan (02/04/2025 10:18 AM EST): -Cologuard was positive on 02/07/2023 -he was referred to GI. Cardiac clearance was needed prior to procedure -he is scheduled to see the core driller helper September 07, 2023 -he is scheduled for [...] 12/03/24 negative Has GI follow up at [facility] 02/26/25 and we will call cardiology 02/04/25 to remind them of clearance as he had ablation for atrial fibrillation 01/2025 Assessment & Plan (12/03/2024 10:01 AM EDT): -Cologuard was positive on 02/07/2023 -he was referred to GI. Cardiac clearance was needed prior to procedure -he is scheduled to see the core driller helper September 07, 2023 -he is scheduled for [...] procedure -he is scheduled to see the core driller helper September 07, 2023 -he is scheduled for [...] Urinary hesitancy 09/02/2023 Overview (12/03/2024): -seen by [facility] 10/27/23 -tamulsosin 0.4 started [...] 01/24/2023 Colon cancer screening 01/24/2023 Overview (07/04/2024): 12/2/23 positive cologuard, see details under positive cologuard [...] rate control. -He was referred back to school psychology specialist 01/2021 -Pt seen cardiology 10/2021 with [...] discontinued. -Followed by Dr. Matias Marcelino of [facility], note from 09/04/24 [...] rate control. -He was referred back to school psychology specialist 01/2021 -Pt seen cardiology 10/2021 with [...] discontinued. -Followed by Dr. Matias Marcelino of [facility], note from 09/04/24 [...] rate control. -He was referred back to school psychology specialist 01/2021 -Pt seen cardiology 10/2021 with [...] discontinued. -Followed by Dr. Matias Marcelino of [facility] -Saw Evonne Gillespie [...] rate control. -He was referred back to school psychology specialist 01/2021 -Pt seen cardiology 10/2021 with [...] discontinued. -Followed by Dr. Matias Marcelino of [facility] -Saw Evonne Gillespie [...] rate control. -He was referred back to school psychology specialist 01/2021 -Pt seen cardiology 10/2021 with [...] discontinued. -Followed by Dr. Matias Marcelino of [facility] -Saw Evonne Gillespie [...] been asymptomatic. He was referred back to school psychology specialist 01/2021 He is awaiting a new [...] due after 12/03/25 -eye care facilitated by [facility] last seen 06/22/2022 -dental home is [facility] proxy filed 12/03/24 Assessment & Plan (12/03/2024 10:01 AM EDT): -next comprehensive annual evaluation due after 12/03/25 -eye care facilitated by [facility] last seen 06/22/2022 -dental home is [facility] proxy filed 12/03/24 Assessment & Plan (09/02/2023 10:25 AM EDT): -next physical exam due after 01/25/2024 -eye care facilitated by [facility] last seen 06/22/2022 -dental home is Assessment & Plan (05/25/2023 10:43 AM EDT): -next physical exam due after 01/25/2024 -eye care facilitated by [facility] last seen 06/22/2022 -dental home is Assessment & Plan (01/24/2023 11:01 AM EST): -next physical exam due after 01/25/2024 -eye care facilitated by [facility] last seen 06/22/2022 -dental home is Lower extremity edema 08/18/2022 Assessment & Plan (08/18/2022 12:02 PM EDT): 1 + pitting edema in both extremities likely in setting of diltiazem use last echo in chart 12/2021: ef 50-60%, Moderate increase LV wall thickening ,diastolic dysfunction indeterminate -continue to f with core driller helper Cardiomyopathy 03/29/2022 Overview (12/03/2024): Possibly due to atrial fib. Pt is already on Sotolol. Pressure is too low for ORLIN or ARB but orlin on list so referral to pharmacy for med rec Last LVEF 50-55% 03/2019 Cardiac cath 2012 no significant CAD, stress MIBI 2017 unremarkable. [...] (02/04/2025): Diabetes is not controlled. Followed by Forging Press Operator, Dr. Warner, note from 10/16/24 reviewed -has Dexacom GCM Lab Results Component Value Date HGBA1C 8.4 (A) 12/03/2024 HGBA1C 9.3 (A) 07/18/2024 HGBA1C 9.7 (A) 05/25/2023 Lab Results Component Value Date CREATININE 0.69 01/07/2025 EGFR >60 01/07/2025 MICROALBCREU TNP 12/03/2024 MICROALBCREU TNP 12/07/2023 LDLCHOLCAL 49 12/03/2024 -Orlin/Arb: lisinopril 5mg -Statin therapy: atorvastatin 80mg -Diabetic eye exam: 03/21/24 with [facility] and seen 01/09/25 with [facility] -Continue lifestyle modifications -Followed by Dr. Warner real estate transaction manager -Previously intolerant to metformin. Actos was stopped [...] EST): Diabetes is not controlled. Followed by Forging Press Operator, Dr. Warner, note from 10/16/24 reviewed -has Dexacom GCM Lab Results Component Value Date HGBA1C 8.4 (A) 12/03/2024 HGBA1C 9.3 (A) 07/18/2024 HGBA1C 9.7 (A) 05/25/2023 Lab Results Component Value Date CREATININE 0.69 01/07/2025 EGFR >60 01/07/2025 MICROALBCREU TNP 12/03/2024 MICROALBCREU TNP 12/07/2023 LDLCHOLCAL 49 12/03/2024 -Orlin/Arb: lisinopril 5mg -Statin therapy: atorvastatin 80mg -Diabetic eye exam: 03/21/24 with [facility] and seen 01/09/25 with [facility] -Continue lifestyle modifications -Followed by Dr. Warner real estate transaction manager -Previously intolerant to metformin. Actos was stopped [...] EDT): Diabetes is not controlled. Followed by Forging Press Operator, Dr. Warner, note from 10/16/24 reviewed -has Dexacom GCM Lab Results Component Value Date HGBA1C 8.4 (A) 12/03/2024 HGBA1C 9.3 (A) 07/18/2024 HGBA1C 9.7 (A) 05/25/2023 - Lab Results Component Value Date CREATININE 0.79 11/12/2024 EGFR >60 11/12/2024 MICROALBCREU TNP 12/07/2023 MICROALBCREU 12.7 10/14/2022 LDLCHOLCAL 77 10/14/2022 -Orlin/Arb: lisinopril 5mg -Statin therapy: atorvastatin 80mg -Diabetic eye exam: 03/21/24 with [facility] -Continue lifestyle modifications -Followed by Dr. Warner real estate transaction manager -continue Jardiance 25 daily -per Endo 02/06/25 [...] EDT): Diabetes is not controlled. Followed by Forging Press Operator, Dr. Warner -has Dexacom GCM Lab Results Component Value Date HGBA1C 9.7 (A) 05/25/2023 HGBA1C 9.1 (A) 01/24/2023 HGBA1C 8.9 (A) 08/18/2022 - Lab Results Component Value Date CREATININE 0.81 10/14/2022 EGFR >60 10/14/2022 MICROALBCREU 12.7 10/14/2022 MICROALBCREU TNP 04/06/2022 LDLCHOLCAL 77 10/14/2022 -Orlin/Arb: lisinopril 5mg -Statin therapy: atorvastatin 80mg -Diabetic eye exam: at [facility] with Gopal Dulzura 06/22/2022 -Diabetic foot exam: -Continue lifestyle modifications -Continue current medications -Followed by Dr. Warner real estate transaction manager -continue Trulicity 4.5mg weekly -continue Jardiance 25 daily -continue humulin R U 500 0 units tid Assessment & Plan (05/25/2023 10:47 AM EDT): Diabetes is not controlled. Followed by Forging Press Operator, Dr. Warner -has Dexacom GCM Lab Results Component Value Date HGBA1C 9.1 (A) 01/24/2023 HGBA1C 8.9 (A) 08/18/2022 Lab Results Component Value Date MICROALBUR 13.0 10/14/2022 CREATININE 0.81 10/14/2022 -Seen by endocrinology on 10/12/2022. No changes made. -Changes: None -Orlin/Arb: lisinopril 5mg -Statin therapy: atorvastatin 80mg -Diabetic eye exam: at [facility] with Gopal Madhavi 06/22/2022 -Diabetic foot exam: -Continue lifestyle modifications -Continue current medications -Followed by Dr. Warner real estate transaction manager -continue Trulicity 4.5mg weekly -continue Jardiance 25 daily -Continue humulin R U 500 0 units tid Assessment & Plan (01/24/2023 12:08 PM EST): Diabetes is not controlled. Followed by Forging Press Operator, Dr. Warner -has Dexacom GCM Lab Results Component Value Date HGBA1C 9.1 (A) 01/24/2023 HGBA1C 8.9 (A) 08/18/2022 Lab Results Component Value Date MICROALBUR 13.0 10/14/2022 CREATININE 0.81 10/14/2022 -Seen by endocrinology on 10/12/2022. No changes made. -Changes: None -Orlin/Arb: lisinopril 5mg -Statin therapy: atorvastatin 80mg -Diabetic eye exam: at [facility] with Gopal Hendrickson 06/22/2022 -Diabetic foot exam: -Continue lifestyle modifications -Continue current medications -Followed by Dr. Warner real estate transaction manager -continue Trulicity 4.5mg weekly -continue Jardiance 25 [...] current medications Lateral epicondylitis 01/10/2012 Morbid obesity ([facility]/HCC) 01/10/2012 Assessment & Plan (12/03/2024 10:18 AM EDT): Multiple joint pain 01/10/2012 Obstructive sleep apnea syndrome 01/10/2012 Overview (01/24/2023): Does not tolerate CPAP-pt willing to be evaluated again by sleep med and check how can improve use of machine ,explained importance to pt for tx -Will try to refer in [facility] 01/24/2023 Assessment & Plan (12/03/2024 10:01 AM [...] for tx -Will try to refer in [facility] 01/24/2023 Assessment & Plan (01/24/2023 11:12 AM EST): Does not tolerate CPAP-pt willing to be evaluated again by sleep med and check how can improve use of machine ,explained importance to pt for tx -Will try to refer in [facility] 01/24/2023 Assessment & Plan (08/18/2022 12:01 [...] hb1ac is 8.9-per pt improving following w real estate transaction manager -last echo in chart 12/2021: ef 50-60%, [...] ablation and after it, clearance from his core driller helper prior to have eye surgery --I will have this note fax to his eye doctor today -if pt is cleared from his core driller helper then pt will need to hold on pradaxa the morning of procedure unless indicated differently by his core driller helper,hold as well PO meds in am of procedure and to use half insuline basal insuline at night prior surgery. Also pt will need to check with his core driller helper if prior eye surgery will need to hold digoxin and diltiazem if meds are going to be continued after ablation. -I called today as well to his core driller helper at # [phone] at [facility] and left my phone info to get a call back to discuss with core driller helper, I also inform pt to discuss w his core driller helper at his upcoming visit in 2 days [...] Insomnia 05/11/2012 02/04/2025 Asthma 01/10/2012 10/13/2022 Encounters * This document contains information received from the source organization and may not represent a complete record from that organization. Date Type Department Care Team Description 02/20/2025 Refill [facility] [address] Hillary Zamora MD Chronic atrial fibrillation (CMS/HCC) (HCC) 02/19/2025 Travel 02/15/2025 11:30 AM EST Clinical Support [facility] [place] [address] Lety Lopez RN Memory change 02/15/2025 Telephone [facility] [place] [address] Hillayr Zamora MD Care Coordination 02/15/2025 Travel 02/04/2025 9:00 AM EST Office Visit [facility] [place] [address] Hillary Zamora MD Memory loss (Primary Dx); Type 2 diabetes mellitus with diabetic polyneuropathy, with long-term current use of insulin ([facility]); Weight loss; Loss of appetite; Positive colorectal cancer screening using Cologuard test; Unintentional weight loss 02/04/2025 Orders Only GENERIC EXTERNAL DATA DEPARTMENT Provider, Generic External Data 02/04/2025 Telephone [facility] [place] [address] Hillary Zamora MD Care Coordination 02/04/2025 Travel 01/30/2025 Telephone [facility] [place] [address] Hillary Zamora MD chartprep 01/07/2025 Orders Only GENERIC EXTERNAL DATA DEPARTMENT Provider, Generic External Data 01/03/2025 10:00 AM EDT Office Visit [facility] [place] [address] Suzette Alvares MD Multiple joint pain (Primary Dx) 01/03/2025 Travel 12/19/2024 Telephone [facility] [place] [address] Hillary Zamora MD 12/12/2024 Orders Only GENERIC EXTERNAL DATA DEPARTMENT Provider, Generic External Data 12/03/2024 9:00 AM EDT Office Visit [facility] MEDICINE [address] [place] [phone] Hillary Zamora MD Obstructive sleep apnea syndrome [...] health status; Morbid obesity (CMS/HCC) 12/03/2024 Telephone [facility] MEDICINE [address] [place] [phone] Hillary Zamora MD [facility] 12/03/2024 Travel 11/30/2024 Telephone [facility] WALK-IN CENTER [address] [place] [phone] Sheri Rivera MA from Last 3 Months Immunizations Immunization Administration [...] Description 03/18/2025 11:30 AM EST Office Visit [facility] MEDICINE [address] [place] [address] Hillary Zamora MD [address] [place] [address] 03/19/2025 12:45 PM EST Office Visit [facility] ADULT DENTAL [address] [place] [address] Raquel Olvera [address] [place] [address] 05/23/2025 2:00 PM EDT Office Visit [facility] OPTOMETRY [address] [place] [address] Meri Mauricio, OD [address] [place] [address] Health Maintenance Due Date Last Done Comments [...] Hepatitis B Vaccines Completed 01/20/2022, 12/15/2018, 02/16/2017 Hepatitis C Screening Completed 10/14/2022 Pneumococcal Vaccine: 50+ Years Completed 10/14/2022, 07/17/2014, 09/30/2009 Zoster Vaccines Completed 10/14/2022, 03/15/2020 Influenza Vaccine Completed 12/03/2024, , 12/26/2019, Additional history exists HIV Screening Completed 02/04/2025, 10/14/2022 HIB Vaccines Aged Out No longer eligi [...] chronic kidney disease No Lety Lopez RN Procedures Procedure Name Priority Date/Time Associated Diagnosis Comments BASIC METABOLIC PANEL Routine 02/04/2025 9:46 AM EST CBC Routine 02/04/2025 9:46 AM EST CBC WITH AUTO DIFFERENTIAL Routine 02/04/2025 9:46 AM EST Loss of appetite HIV 1/2 ANTIGEN/ANTIBODY, FOURTH GENERATION W/RFL Routine 02/04/2025 9:46 AM EST Unintentional weight loss POCT GLYCOSYLATED HEMOGLOBIN (HGB A1C) Routine 02/04/2025 [...] 2 diabetes mellitus with hyperosmolarity, uncontrolled (CMS/HCC) PROPHYLAXIS - ADULT Routine 06/15/2023 1 :00 [...] ANTIBODY REFLEX Routine 10/14/2022 11:04 AM EDT DIABETES EYE EXAM Routine 06/22/2022 from Last 3 Months or Most Recently Relevant to Health Maintenance Results * (ABNORMAL) CBC auto differential (02/04/2025 9:46 AM EST) Only the most recent of3 resultswithin the time period is included. White Blood Count 4.2(L) 4.8 - 10.8 X10*3/uL [facility] Red Blood Count 4.70 4.60 - 5.80 X10*6/uL [facility] Hemoglobin 15.0 14.0 - 18.0 g/dl [facility] Hematocrit 45.2 42.0 - 52.0 % [facility] Mean Corpuscular Volume 96.2 80.0 - 98.0 fL [facility] Mean Corpuscular Hemoglobin 31.9 27.0 - 33.0 pg [facility] Mean Corpuscular HGB Conc 33.2 31.0 - 36.0 g/dl [facility] Red Cell Distribution Width 13.1 11.0 - 16.0 % [facility] Platelet Count 181 160 - 400 X10*3/uL [facility] Mean Platelet Volume 9.7 9.4 - 12.4 fL [facility] Neutrophils Percent Auto 48.7 45 - 73 % [facility] Imm Gran Pct Auto 0.5(H) 0.0 - 0.4 % [facility] Lymphocytes Percent Auto 38.2 20 - 40 % [facility] Monocytes Percent Auto 8.1 2 - 11 % [facility] Eosinophils Percent Auto 3.3 0 - 4 % [facility] Basophils Percent Auto 1.2 0 - 2 % [facility] NRBC Pct Auto 0.0 0.0 - 0.2 /100WBC [facility] Neutrophils Absolute Auto 2.1 2.0 - 8.3 x10*3/uL [facility] Imm Gran Abs Auto 0.02 0.00 - 0.03 X10*3/uL [facility] Lymphocytes Absolute Auto 1.6 1.2 - 4.9 X10*3/uL [facility] Monocytes Absolute Auto 0.3 0.1 - 1.2 X10*3/uL [facility] Eosinophils Absolute Auto 0.1 0.0 - 0.4 X10*3/uL [facility] Basophils Absolute Auto 0.1 0.0 - 0.2 X10*3/uL [facility] NRBC Abs Auto 0.000 0.0 - 0.012 X10*3/uL [facility] Blood Venous blood specimen / Unknown 02/04/2025 9:46 AM EST 02/04/2025 11:16 AM EST Hillary Zamora MD LAB BLOOD ORDERABLES Final Result [facility] [address] [place] [address] [phone] * HIV-1/2 Antigen and Antibodies, Fourth Generation, with Reflexes (02/04/2025 9:46 AM EST) [facility] HIV AB/AG Nonreactive Nonreactive [facility] Comment:HIV-1 p24 Ag and/or HIV-1/HIV-2 Ab not detected.A test result that is nonreactive does not exclude thepossibility of exposure to or infection with HIV-1 and/orHIV-2. Nonreactive results in this assay for individualswith prior exposure to HIV-1 and/or HIV-2 may be due toantigen and antibody levels that are below the limit ofdetection of this assay.The Bluechilli HIV Ag/Ab Combo assay result andsupplemental assay results should be interpreted inconjunction with the patient's clinical presentation,history and other laboratory results. If the results areinconsistent with clinical evidence, additional testing issuggested to confirm the result. Blood Venous blood specimen / Unknown 02/04/2025 9:46 AM EST 02/04/2025 11:10 AM EST Hillary Zamora MD LAB BLOOD ORDERABLES Final Result [facility] [address] [place] [address] [phone] * (ABNORMAL) CBC (02/04/2025 9:46 AM EST) [facility] White Blood Count 4.6(L) 4.8 - 10.8 X10*3/uL [facility] Red Blood Count 4.57(L) 4.60 - 5.80 X10*6/uL [facility] Hemoglobin 14.7 14.0 - 18.0 g/dl [facility] Hematocrit 44.3 42.0 - 52.0 % [facility] Mean Corpuscular Volume 96.9 80.0 - 98.0 fL [facility] Mean Corpuscular Hemoglobin 32.2 27.0 - 33.0 pg [facility] Mean Corpuscular HGB Conc 33.2 31.0 - 36.0 g/dl [facility] Red Cell Distribution Width 13.1 11.0 - 16.0 % [facility] Platelet Count 179 160 - 400 X10*3/uL [facility] Mean Platelet Volume 10.0 9.4 - 12.4 fL [facility] NRBC Pct Auto 0.0 0.0 - 0.2 /100WBC [facility] NRBC Abs Auto 0.000 0.0 - 0.012 X10*3/uL [facility] 02/04/2025 9:46 AM EST 02/04/2025 11:16 AM EST us Generic External Data Provider LAB BLOOD ORDERAB LES Final Result Performing Organization Address City/[facility]/ZIP Co de Phone Number [facility] [address] [place] [address] [phone] * (ABNORMAL) Basic Metabolic Panel (02/04/2025 9:46 AM EST) Only the most recent of3 resultswithin the time period is included. [facility] Sodium 142 135 - 145 mmol/L [facility] Potassium 4.5 3.3 - 5.1 mmol/L [facility] Chloride 107 96 - 108 mmol/L [facility] Carbon Dioxide 28 22 - 29 mmol/L [facility] Anion Gap 12 12 - 20 [facility] Urea Nitrogen (BUN) 11 9 - 16 mg/dL [facility] Creatinine, Serum 0.66 0.5 - 1.4 mg/dL [facility] Estimated Glomerular Filt Rate >60 [facility] Comment:Chronic Kidney Disea se: Estimated GFR < 60 mL/min/1.40m8Cebmhl Kidney Disease: Estimated GFR < 15 mL/min/1.73m2 Glucose 164(H) 60 - 115 mg/dL [facility] Calcium 9.4 8.4 - 10.2 mg/dL [facility] 02/04/2025 9:46 AM EST 02/04/2025 11:10 AM EST us Generic External Data Provider LAB BLOOD ORDERAB LES Final Result [facility] [address] [place] [phone] * (ABNORMAL) POCT glycosylated hemoglobin (Hgb A1c) (02/04/2025 9:33 AM EST) Only the most recent of2 resultswithin the time period is included. Hemoglobin A1C 8.4(A) 4.0 - 5.7 % QC Media Lot # [id number] Lot# Expiration Date [id number] Blood Capillary blood specimen / Unknown 02/04/2025 [...] Whole Blood 188(H) 60 - 115 mg/dL [facility] Comment:METER #: [id number] Testing performed in the Endocrinology Department [address] , [address], [facility]. 01/07/2025 1:17 PM EST 01/07/2025 1:34 PM EST Generic External Data Provider LAB BLOOD ORDERAB LES Final Result Performing Organization Address City/[facility]/ZIP Co de Phone Number [facility] [address] [place], [place] [phone] * PSA,Total (12/12/2024 7:37 AM EDT) [facility] Prostate Specific Antigen 0.66 <0.05 - 4.0 ng/mL [facility] Comment:PSA methodology: Shashank ring Alimarkty i ChemiluminescentMicroparticle Immunoassay (CMIA) 12/12/2024 7:37 AM EDT 12/12/2024 7:37 AM EDT Generic External Data Provider LAB BLOOD ORDERAB LES Final Result Performing Organization Address City/[facility]/ZIP Co de Phone Number [facility] [address] [place] [address] [phone] * Vitamin B12 (Cobalamin) and Folate Panel, Serum (12/03/2024 9:41 AM EDT) Vitamin B12 429 200 - 900 pg/mL [facility] Comment:NORMAL 200-900 PG/ML INDETERMINATE 160-199 PG/ML DEFICIENT < 160 PG/ML Folate 10.5 > or = 4.0 ng/mL [facility] Comment:Reference Values:> o r = [...] BLOOD ORDERABLES Final Result Performing Organization Address [facility]/ZIP Co de Phone Number [facility] [address] [place] [address] [phone] * TSH with Reflex to Free T4 (12/03/2024 9:41 AM EDT) TSH reflex Free T4 1.62 0.32 - 4.0 uIU/mL [facility] Blood Venous blood specimen / Unknown 12/03/2024 9:41 AM EDT 12/03/2024 11:13 AM EDT Hillary Zamora MD LAB BLOOD ORDERABLES Final Result Performing Organization Address City/[facility]/ZIP Co de Phone Number [facility] [address] [place] [address] [phone] * Albumin, Random Urine W/Creatinine (12/03/2024 9:41 AM EDT) Creatinine, Urine 49.28 mg/dL [facility] Microalbumin Urine <5.0 mg/L [facility] Microalbum Creatinine Ratio Ur TNP <30 ug/mg cr [facility] Comment:Unable to calculate albumin/creatinine ratio due to lowmicroalbumin or creatinine result. Urine 12/03/2024 9:41 AM EDT 12/03/2024 11:02 AM EDT Hillary Zamora MD LAB URINE ORDERABLES Final Result Performing Organization Address [facility] de Phone Number [facility] [address] [place] [phone] * Iron And Total Iron Binding Capacity (12/03/2024 9:41 AM EDT) Iron 106 45 - 160 mcg/dL [facility] Total Iron Binding Capacity 280 228 - 428 mcg/dL [facility] Percent Iron Saturation 38 15 - 50 % [facility] Unsaturated Iron Binding 174 ug/dL [facility] Blood Venous blood specimen / Unknown 12/03/2024 9:41 AM EDT 12/03/2024 11:13 AM EDT Hillary Zamora MD LAB BLOOD ORDERABLES Final Result Performing Organization Address [facility] Co de Phone Number [facility] [address] [place] [address] [phone] * Ferritin (12/03/2024 9:41 AM EDT) Ferritin 148 20 - 250 ng/mL [facility] Blood Venous blood specimen / Unknown 12/03/2024 9:41 AM EDT 12/03/2024 11:13 AM EDT Hillary Zamora MD LAB BLOOD ORDERABLES Final Result Performing Organization Address [facility] de Phone Number [facility] [address] [place] [address] [phone] * CEA (12/03/2024 9:41 AM EDT) Carcinoembryonic Antigen <1.73 ng/mL [facility] Comment:CEA Reference Range: 93.4% Non-Smokers [...] BLOOD ORDERABLES Final Result Performing Organization Address City/[facility]/ZIP Co de Phone Number [facility] [address] [place] [address] [phone] * Hepatic Function Panel (12/03/2024 9:41 AM EDT) Bilirubin, Total 0.5 0.0 - 1.0 mg/dL [facility] Bilirubin, Direct 0.2 0.0 - 0.5 mg/dL [facility] Aspartate Amino Transferase 32 5 - 37 U/L [facility] Alanine Aminotransferase 35 0 - 40 U/L [facility] Total Protein 6.9 6.5 - 8.0 g/dL [facility] Albumin Level 4.4 3.5 - 5.0 g/dL [facility] Alkaline Phosphatase 85 39 - 117 U/L [facility] Blood Venous blood specimen / Unknown 12/03/2024 9:41 AM EDT 12/03/2024 11:13 AM EDT Hillary Zamora MD LAB BLOOD ORDERABLES Final Result Performing Organization Address [facility]/ZIP Co de Phone Number [facility] [address] [place] [phone] * (ABNORMAL) Lipid Panel, Standard (12/03/2024 9:41 AM EDT) Triglycerides 80 <150 mg/dL [facility] Comment:Desirable Triglyceri de: less than 150 mg/dLBorderline High Triglyceride 150-199 mg/dLHigh Triglyceride: 200-499 mg/dLVery High Triglyceride: greater than or equal to 5OO mg/dL Cholesterol 97 <200 mg/dL [facility] Comment:Desirable Cholestero l: less than 200 mg/dLBorderline High Cholesterol: 200-239 mg/dLHigh Cholesterol: greater than 239 mg/dL LDL Cholesterol Calculated 49 <100 mg/dL [facility] Comment:Desirable LDL: less than 100 mg/dLNear Optimal/Above Optimal LDL: 110- 129 mg/dLBorderline High LDL: 130-159 mg/dLHigh LDL: 160-189 mg/dLVery High LDL: greater than or equal to 190 mg/dL HDL Cholesterol 32(L) >40 mg/dL [facility] Comment:Desirable HDL: great er than 40 mg/dL Note: This HDL assay may give artificially low results in patients with liver disease. Blood Venous blood specimen / Unknown 12/03/2024 9:41 AM EDT 12/03/2024 11:13 AM EDT Hillary Zamora MD LAB BLOOD ORDERABLES Final Result [facility] [address] [place] [address] [phone] * (ABNORMAL) Cologuard?? colon cancer screening (02/07/2023 7:30 AM EST) Cologuard Result Positive( A) Negative 02/15/2023 9:47 AM EST [employer] (CLIA #:[id number]) Comment: POSITIVE TEST RESULT. A positive Cologuard [...] Frost. et al, N Engl J Med 2014;370(14):5961-8939.) Cologuard may produce a false negative or false positive result (no colorectal cancer or precancerous polyp present at colonoscopy follow up). A negative Cologuard test result does not guarantee the absence of CRC or advanced adenoma (pre-cancer). The current Cologuard screening interval is every 3 years. ([employer] Cancer Society and U.S. Multi-Society Task Force). Cologuard performance data in a 10,000 patient pivotal study using colonoscopy as the reference method can be accessed at the following location: www.[employer]/results. Additional description of the Cologuard test process, warnings and precautions can be found at [email or web address]. Stool specimen (specimen) 02/07/2023 7:30 AM EST 02/08/2023 3:13 PM EST us Hillary Zamora MD LAB MOLECULAR DIAGNOSTICS ORDERABLES Final Result [employer] (CLIA #:[id number]) [place] [place] [place] [address], * Hepatitis C Antibody Reflex (10/14/2022 11:04 AM EDT) Hepatitis C Antibody Nonreactive Nonreactive [facility] Comment:Antibodies to HCV no t detected; does not exclude early acuteHCV infection. 10/14/2022 11:0 4 AM EDT 10/14/2022 12:57 PM EDT Hillary Zamora MD LAB BLOOD ORDERABLES Final Result [facility] [address] [place] [phone] * Diabetes Eye Exam (06/22/2022) Eye Exam Normal Normal Comment:[facility] Historical Provider HEALTH [...] 02/15/2025 Patient has chronic kidney disease 02/15/2025 Insurance [employer] ONE CARE < 65 DENTAL [facility] Advance Directives Documents on File Type Date Recorded Patient Stave Cutting Supervisor Expl anation Advance Directives and Living Will 12/04/2024 Health Care Proxy 12/03/24 Care Teams Animal Keeper Relationship Specialty Start Date End Date Sera, MD Hillary [address] [place] [phone] PCP - General Family Medicine 03/07/18 Orlando Warner MD [address] [place] [address] Endocrinology 03/29/24 Layla Marrufo NP [address] [place] [address] Urology 04/05/24 Meri Mauricio OD [address] [place] [address] Optometry 04/17/24 Matias Marcelino MD [address] [place] [address] Cardiology 09/06/24 Teetee Zacarias INTEGRATED CIRCUIT IC LAYOUT DESIGNER Endocrinology 03/29/24 [facility] 01/09/25
--- NOTE | 2025-02-21 07:30 | A.OFFVIS_ITS ---
Vital Signs 02/21/25 07:31 Height 6 ft Weight 180 lb BMI 24.4 BP 97/59 L Pulse 84 Intake Visit Reasons: + cologaurd 23, rapid weight loss, vomiting Intake Note: Patient new consult for weight loss, vomiting, Patient ccc: N/V, abdominal pain/daily, poor appetite/weight loss, heartbur, between diarrhea and constipation Sports Betting Manager Required: No Accompanied by: Self / Same As Patient Allergies Penicillins (PENICILLINS) Allergy (Unknown, Verified 02/21/25 07:30) UNKNOWN metformin Adverse Reaction (Unknown, Verified 02/21/25 07:30) diarrhea Medication List - Last Reconciled 02/21/25 by Cherelle Boudreaux CNP atorvastatin 80 mg PO BEDTIME blood sugar diagnostic (FreeStyle Lite Strips) As directed blood-glucose meter (FreeStyle Lite Meter kit) As directed blood-glucose sensor (Yapta G7 Sensor device) As directed cholecalciferol (vitamin D3) (Vitamin D3) 50 mcg PO QAM dabigatran etexilate (Pradaxa) 150 mg PO BID divalproex 1,000 mg PO BEDTIME dulaglutide (Trulicity) 4.5 mg (0.5 mL) subcut QWEEK ezetimibe 10 mg PO QAM insulin regular hum U-500 conc (Humulin R U-500 (Conc) Insulin Kwikpen) Breakfast 65 units , lunch 65 units and 80 units before dinner 30 days Jardiance (empagliflozin) 25 mg PO QAM 30 days NS lancets (FreeStyle Lancets) As directed lancets (TRUEplus Lancets) USE DIRECTED TO TEST BLOOD SUGAR SIX TIMES DAILY DIRECTED lisinopril 5 mg PO QAM melatonin 1 tab PO BEDTIME PRN sotalol 120 mg PO BID tamsulosin 0.4 mg PO BEDTIME 30 days HPI HPI + cologaurd 23, rapid weight loss, vomiting: Details: Patient is a 59-year-old male with PMH of diabetes, hypertension, dyslipidemia, AFib/flutter. Referred for further evaluation of weight loss He reports losing approximately 100 pounds over the past year. Associated symptoms include a loss of appetite over the same duration, where he feels he cannot eat more than a single bite of food before losing his appetite. He also reports nausea, especially in the morning, without emesis. The patient has chronic constipation, with bowel movements occurring about twice per week, characterized by hard stools and straining. He denies blood in his stool, regurgitation, and dysphagia. He also experiences heartburn, for which he takes Tums with some relief. His past medical history is significant for type 2 diabetes mellitus, atrial fibrillation/flutter status post three cardiac ablations, and allergies to penicillin and metformin. He had a Cologuard test in February 2023 that was positive, but has not yet undergone a follow-up colonoscopy. His last colonoscopy was approximately 11 years ago at age 48, with unknown results. His father had a history of colon and prostate cancer. Recent laboratory workup showed no anemia, normal kidney and liver function, and was negative for HIV and hepatitis C. Patient denies: fever/chills, vomiting, regurgitation, dysphasia, ab pain or melena/hematochezia. Social hx: -denies ETOH use -smoke marijuana daily, denies other recreational drug use -non-smoker - family hx as below -denies personal hx of CA -tolerated anesthesia in the past without difficulty. [facility] Medical History (Updated 02/21/25 @ 08:49 by Cherelle Boudreaux CNP) Acid reflux Constipation Positive colorectal cancer screening using Cologuard test Weight loss, unintentional Pre-operative cardiovascular examination Morbid obesity Type 2 diabetes mellitus with unspecified complications Essential hypertension Nonischemic cardiomyopathy Typical atrial flutter Hyperparathyroidism CLAUDIA (obstructive sleep apnea) Vitamin D deficiency Diabetic nephropathy associated with type 2 diabetes mellitus director long term care (current) use of insulin Hypertension Dyslipidemia Obesity Diabetes type 2, uncontrolled Paroxysmal A-fib Surgical History History of radiofrequency ablation procedure for cardiac arrhythmia Hx of colonoscopy Family History (Updated 02/21/25 @ 08:24 by Cherelle Boudreaux CNP) Father Diabetes CVD (cardiovascular disease) Cancer Mother Diabetes Social History Household Members: None Household Members Other:: Alcohol intake: never Patient Tobacco Use Status: Former Tobacco user Substance Use Type: Crack/Cocaine and Marijuana Current occupational status: disabled Current occupation: left handed Review of Systems Const Reports as per HPI ENT Reports as per HPI Card Reports as per HPI Resp Reports as per HPI GI Reports as per HPI Reports as per HPI Physical Exam Vital Signs: Last Vital Signs Pulse 84 02/21/25 07:31 BP 97/59 L 02/21/25 07:31 BMI result Body Mass Index 24.4 Const General: healthy appearing, no acute distress and well developed Nutritional Appearance: average body habitus Orientation/consciousness: patient oriented x3 HEENT Head: Yes normal to inspection, Yes normocephalic and Yes atraumatic Face and sinus: Yes normal facial exam Eyes General: appearance normal, both eyes and all related structures Neck Neck: Yes normal visual inspection Lymphatic: no lymphadenopathy noted Resp Effort & Inspection: normal respiratory effort, able to speak in complete sentences, no tracheal deviation and symmetric chest movement Cardio Jugular venous distension: no JVD GI Inspection: Yes normal to inspection and No distended Palpation (GI): Soft to palpation, not firm, nontender and No hepatosplenomegaly present Auscultation: normal bowel sounds Neuro General: patient oriented x3 Gait exam (Neuro): Normal gait present Psych Appearance: grossly normal Mental Status: mental status grossly normal Speech and movement: Normal speech and movement present Affect: normal affect Attitude: cooperative Thought process: Normal thought process present Thought content: Normal thought content present Insight: Good insight present (Psych) Judgement: Good judgement present (Psych) Results Reviewed Results Reviewed: Date of Service: 11/12/24 Procedure(s): XR ribs RT min 3V w CXR1V Accession Number(s): [id number] cc: Hillary Zamora MD; Juan Carlos Patricio Reason for Exam: fall, lower rib pain EXAMINATION: XR RIBS 3 VIEWS MINIMUM WITH CHEST RIGHT HISTORY: fall, lower rib pain COMPARISON: Comparison is made with the prior examination of the chest dated 09/04/2022. FINDINGS: A single PA view of the chest of 6 views of the right ribs are submitted. The lungs are expanded and clear. There is no pleural effusion, pneumothorax, or pulmonary vascular congestion. The heart is normal in size. The right ribs are intact. No fracture is seen. XR/XR ribs RT min 3V w CXR1V IMPRESSION: No acute cardiopulmonary abnormality. No evidence of fracture of the right ribs. Electronically signed by: Orlando Sherman MD 11/12/2024 01:47 PM EDT patient presents Assessment & Plan Assessment & Plan (1) Weight loss, unintentional: Code(s): R63.4 - Abnormal weight loss Category: Medical Plan: The patient has experienced a 100-pound weight loss and decreased appetite over the past year. - Recent lab workup is largely reassuring. Labs: - CBC: No evidence of anemia. - Basic Metabolic Panel: Random glucose was 164 mg/dL. Kidney function is good. - HbA1c: 8.5%. - Liver Function Tests: Normal. - Serology: Negative for Hepatitis C and HIV. - Thyroid Function Tests: Normal. - Vitamin Levels: Normal B12 and folate; no iron deficiency. - Cologuard Test (February 07, 2023): Positive. Imaging: - Chest X-ray: Normal. Other Tests: - EKG (recent): Showed atrial fibrillation. - To investigate the cause, an upper endoscopy and colonoscopy are planned to rule out any pathology in the digestive tract. - Cardiac clearance from his private equity analyst is required before proceeding due to his cardiac history; efforts will be made to expedite this. - Additional lab work to include hepatitis A and B serologies will be completed to rule out other viral infections. (2) Positive colorectal cancer screening using Cologuard test: Comment: collected 02/07/23 Code(s): R19.5 - Other fecal abnormalities Category: Medical Plan: The patient had a positive Cologuard test on February 07, 2023, and is overdue for a follow-up colonoscopy. - He will undergo a colonoscopy as soon as possible, pending cardiac clearance. - A prescription for the colonoscopy preparation,with extended prep to include 2 Bisacodyl tablets nightly starting 5 days before procedure + PEG split prep. Detailed instructions provided. (3) Constipation: Code(s): K59.00 - Constipation, unspecified Category: Medical Qualifiers: Constipation type: unspecified constipation type Qualified Code(s): K59.00 - Constipation, unspecified Plan: The patient reports chronic constipation with hard stools. - He has been prescribed MiraLax powder to be taken in the morning and a stool softener to be taken at bedtime. (4) Acid reflux: Code(s): K21.9 - Gastro-esophageal reflux disease without esophagitis Category: Medical Qualifiers: Esophagitis presence: esophagitis presence not specified Qualified Code(s): K21.9 - Gastro-esophageal reflux disease without esophagitis Plan: The patient reports heartburn, which he self-treats with Tums. - He is not currently on any prescription medication for this. We will trail famotidine until after EGD is complete. - The planned upper endoscopy will be used to evaluate his esophagus for signs of reflux. Plan Follow-up after endoscopy or sooner as needed Time: I spent a total of 33 minutes on the date of encounter which includes: Preparing to see the patient (reviewed previous documentation, test results and medical history) Performing a medically appropriate exam and/or evaluation Ordering medications, tests, and procedures Documenting clinical information in the health record Orders: Orders Hepatitis A,B,C Profile Today R63.4 - Abnormal weight loss Referrals GI Procedure Notification R19.5 - Other fecal abnormalities, R63.4 - Abnormal weight loss Medications: New 2 docusate sodium Take two tablet at bedtime 200 mg (2 x 100 mg) PO BEDTIME 90 caps 1RF constipation peg 3350-electrolytes 236-22.74-6.74 -5.86 gram until fecal effluent is clear 240 mL PO ONCE 4,000 mL 0RF bisacodyl take four tablets once day of colonoscopy prep 20 mg (4 x 5 mg) PO ONCE 4 tabs 0RF bisacodyl Take two tablets at bedtime, starting five nights before colonoscopy 10 mg (2 x 5 mg) PO BEDTIME 10 tabs 0RF famotidine Take one tablet daily for acid reflux 20 mg PO DAILY 90 tabs 1RF GERD polyethylene glycol 3350 (Miralax) Take 17G (one cap full) daily with 8oz of water 17 grams PO DAILY 510 grams 2RF constipation 30 days Coding Level of Care Code New Pt New Pt Level 3 (96007) Patient Type New Diagnoses Weight loss, unintentional R63.4 Positive colorectal cancer screening using Cologuard test R19.5 Constipation, unspecified constipation type K59.00 Constipation type: unspecified constipation type Gastroesophageal reflux disease, unspecified whether esophagitis present K21.9 Esophagitis presence: esophagitis presence not specified
[2025-02-21 07:31] VITALS: BP 97/59; PULSE 84; BMI 24.4
== END 2025-02-21 08:43 | disposition home or self-care (01) ==
LOC: HO.HGI 07:12
PROVIDERS: PCP Family Medicine; Visit Provider Nurse Practitioner Family
DX: R63.4 Abnormal weight loss (principal); R19.5 Other fecal abnormalities; K59.00 Constipation, unspecified; K21.9 Gastro-esophageal reflux disease without esophagitis
CPT/HCPCS: 99203

== ENCOUNTER → 2025-02-21 07:11 | Outpatient (BNVA) | payer OTHER, SELFPAY | PROVIDERS: PCP Family Medicine; Visit Provider Nurse Practitioner Family | DX: R63.4 Abnormal weight loss (principal); R19.5 Other fecal abnormalities; K59.00 Constipation, unspecified; K21.9 Gastro-esophageal reflux disease without esophagitis | CPT/HCPCS: 99202 ==

== ENCOUNTER 2025-02-22 07:20 | Outpatient (REF) | payer OTHER, SELFPAY ==
--- OUTSIDE RECORDS SUMMARY | 2025-02-22 07:24 | XMS_ITS | Encounter Summary ---
Author Organization [employer] Address [address] [place] [address] Care Team Providers Care Radiotelephone Operator Name Role Phone Hillary Zamora MD Primary Care Provider Orlando Warner MD Unavailable Layla Marrufo NP Unavailable Meri Mauricio OD Unavailable [phone] Matias Marcelino MD Unavailable [phone] Encounter Details Date Type Department Care Team (Latest Contact Info) Description 12/23/2020 Abstract [facility] CONVERSIONS Dental, Provider, DDS Social [...] Description 03/18/2025 11:30 AM EST Office Visit [facility] MEDICINE [address] [place], [place] [phone] Hillary Zamora MD [address] [place], [place] [phone] 03/19/2025 12:45 PM EST Office Visit [facility] ADULT DENTAL [address] [place], [place] [phone] Raquel Olvera [address] [place] [address] 05/23/2025 2:00 PM EDT Office Visit [facility] OPTOMETRY [address] [place] [address] Meri Mauricio, OD [address] [place] [address] documented as of this encounter Visit Diagnoses Not on filedocumented in this encounter Care Teams Radiotelephone Operator Relationship Specialty Start Date End Date Hillary Zamora MD [address] [place] [address] PCP - General Family Medicine 03/07/18 Orlando Warner MD [address] [place] [address] Endocrinology 03/29/24 Layla Marrufo NP [address] [place] [address] Urology 04/05/24 Meri Mauricio, OD [address] [place] [address] Optometry 04/17/24 Matias Marcelino MD [address] [place] [address] Cardiology 09/06/24 Teetee Zacarias LABORER MINE Endocrinology 03/29/24 [facility] Ophthalmology 01/09/25 documented as of this encounter
--- OUTSIDE RECORDS SUMMARY | 2025-02-22 07:24 | XMS_ITS | Encounter Summary ---
Author Organization [employer] Address [address] [place] [address] Care Team Providers Care Gambling Broker Name Role Phone Hillary Zamora MD Primary Care Provider [phone] Orlando Warner MD Unavailable Layla Marrufo NP Unavailable Meri Mauricio OD Unavailable Matias Marcelino MD Unavailable Reason for Visit * Reason Comments Med Refill Encounter Details Date Type Department Care Team (Late st Contact Info) Description 02/20/2025 Refill [facility] MEDICINE [address] [place], [place] [phone] Hillary Zamora MD [address] [place], [place] [phone] Chronic atrial fibrillation (CMS/HCC) (HCC) Social History [...] the past 12 months, has t he [employer], gas, oil or water company threatened to [...] Description 03/18/2025 11:30 AM EST Office Visit [facility] MEDICINE [address] [place] [address] Hillary Zamora MD [address] [place] [address] 03/19/2025 12:45 PM EST Office Visit [facility] ADULT DENTAL [address] [place] [address] Wade Raquel [address] [place] [address] 05/23/2025 2:00 PM EDT Office Visit [facility] OPTOMETRY [address] [place] [address] Meri Mauricio, GERTRUDE [address] [place] [address] documented as of this encounter Goals Goal [...] documented as of this encounter Care Teams Gambling Broker Relationship Specialty Start Date End Date Hillary Zamora MD [address] [place] [address] PCP - General Family Medicine 03/07/18 Orlando Warner MD [address] [place] [address] Endocrinology 03/29/24 Layla Marrufo NP [address] [place] [address] Urology 04/05/24 Meri Mauricio OD [address] [place] [address] Optometry 04/17/24 Matias Marcelino MD [address] [place] [address] Cardiology 09/06/24 Teetee Zacarias AUTO PHONE INSTALLER Endocrinology 03/29/24 [facility] Op[facility] 01/09/25 documented as of this encounter
--- OUTSIDE RECORDS SUMMARY | 2025-02-22 07:24 | XMS_ITS | Clinical Summary ---
Author Organization [employer] Address [address] [place] [address] Care Team Providers Care Roll Hauler Name Role Phone Sera, Hillary ONTIVEROS Primary Care Provider [phone] Orlando Warner MD Unavailable Layla Marrufo NP [...] hyperglycemia, with long-term current use of insulin ([facility]) Take by mouth. A ctive sotalol (Betapace) 80 MG tabletIndicatio ns:Chronic atrial fibrillation (CMS/HCC) ([facility]) Take by mouth. Active ezetimibe (Zetia) 10 MG tabletIndicatio ns:Dyslipidemia Take 10 mg by mouth Once per day. Active lisinopril 5 MG tabletIndicatio ns:Primary hypertension Take by mouth Once per day. Active Tirzepatide (Mounjaro) 2.5 MG/0.5ML solution auto-injectorIn dications:Type 2 diabetes mellitus with hyperglycemia, with long-term current use of insulin ([facility]) Inject under the skin. Active [...] hyperglycemia, with long-term current use of insulin ([facility]) TEST BLOOD SUGAR SIX TIMES DAILY DIRECTED 200 strip 11 02/09/20 25 1:42 PM EST 025 Active atorvastatin (Lipitor) 80 MG tabletIndicatio ns:Type 2 diabetes mellitus with hyperosmolarity , uncontrolled ([facility]),Dyslipide sabrina TAKE 1 TABLET BY MOUTH AT [...] migh t be different from the original. [facility] Bridge Operator: Lizz, member services number [phone], provider services line, , option 4 Chief Operator Lock Tender Agency: [id number] [facility] [employer] [facility] Problem Noted Date Diagnosed Date Memory loss [...] atrial fibrillation 01/2025. He has appointment with [facility] 02/26/25 at 11:30. His father [...] atrial fibrillation 01/2025. He has appointment with [facility] 02/26/25 at 11:30. His father [...] procedure -he is scheduled to see the unarmed security officer September 07, 2023 -he is scheduled for [...] 12/03/24 negative Has GI follow up at [facility] 02/26/25 and we will call cardiology 02/04/25 to remind them of clearance as he had ablation for atrial fibrillation 01/2025 Assessment & Plan (02/04/2025 10:18 AM EST): -Cologuard was positive on 02/07/2023 -he was referred to GI. Cardiac clearance was needed prior to procedure -he is scheduled to see the unarmed security officer September 07, 2023 -he is scheduled for [...] 12/03/24 negative Has GI follow up at [facility] 02/26/25 and we will call cardiology 02/04/25 to remind them of clearance as he had ablation for atrial fibrillation 01/2025 Assessment & Plan (12/03/2024 10:01 AM EDT): -Cologuard was positive on 02/07/2023 -he was referred to GI. Cardiac clearance was needed prior to procedure -he is scheduled to see the unarmed security officer September 07, 2023 -he is scheduled for [...] procedure -he is scheduled to see the unarmed security officer September 07, 2023 -he is scheduled for [...] Urinary hesitancy 09/02/2023 Overview (12/03/2024): -seen by [facility] 10/27/23 -tamulsosin 0.4 started 10/27/23 [...] rate control. -He was referred back to shipping specialist 01/2021 -Pt seen cardiology 10/2021 with [...] discontinued. -Followed by Dr. Matias Marcelino of [facility], note from 09/04/24 reviewed, [...] rate control. -He was referred back to shipping specialist 01/2021 -Pt seen cardiology 10/2021 with [...] discontinued. -Followed by Dr. Matias Marcelino of [facility], note from 09/04/24 reviewed, [...] rate control. -He was referred back to shipping specialist 01/2021 -Pt seen cardiology 10/2021 with [...] discontinued. -Followed by Dr. Matias Marcelino of [facility] -Saw Evonne Gillespie NP [...] rate control. -He was referred back to shipping specialist 01/2021 -Pt seen cardiology 10/2021 with [...] discontinued. -Followed by Dr. Matias Marcelino of [facility] -Saw Evonne Gillespie NP [...] rate control. -He was referred back to shipping specialist 01/2021 -Pt seen cardiology 10/2021 with [...] discontinued. -Followed by Dr. Matias Marcelino of [facility] -Saw Evonne Gillespie NP [...] been asymptomatic. He was referred back to shipping specialist 01/2021 He is awaiting a new [...] due after 12/03/25 -eye care facilitated by [facility] last seen 06/22/2022 -dental home is [facility] proxy filed 12/03/24 Assessment & Plan (12/03/2024 10:01 AM EDT): -next comprehensive annual evaluation due after 12/03/25 -eye care facilitated by [facility] last seen 06/22/2022 -dental home is [facility] proxy filed 12/03/24 Assessment & Plan (09/02/2023 10:25 AM EDT): -next physical exam due after 01/25/2024 -eye care facilitated by [facility] last seen 06/22/2022 -dental home is Assessment & Plan (05/25/2023 10:43 AM EDT): -next physical exam due after 01/25/2024 -eye care facilitated by [facility] last seen 06/22/2022 -dental home is Assessment & Plan (01/24/2023 11:01 AM EST): -next physical exam due after 01/25/2024 -eye care facilitated by [facility] last seen 06/22/2022 -dental home is Lower extremity edema 08/18/2022 Assessment & Plan (08/18/2022 12:02 PM EDT): 1 + pitting edema in both extremities likely in setting of diltiazem use last echo in chart 12/2021: ef 50-60%, Moderate increase LV wall thickening ,diastolic dysfunction indeterminate -continue to f with unarmed security officer Cardiomyopathy 03/29/2022 Overview (12/03/2024): Possibly due to [...] (02/04/2025): Diabetes is not controlled. Followed by Gravel Screener, Dr. Warner, note from 10/16/24 reviewed -has Dexacom GCM Lab Results Component Value Date HGBA1C 8.4 (A) 12/03/2024 HGBA1C 9.3 (A) 07/18/2024 HGBA1C 9.7 (A) 05/25/2023 Lab Results Component Value Date CREATININE 0.69 01/07/2025 EGFR >60 01/07/2025 MICROALBCREU TNP 12/03/2024 MICROALBCREU TNP 12/07/2023 LDLCHOLCAL 49 12/03/2024 -Orlin/Arb: lisinopril 5mg -Statin therapy: atorvastatin 80mg -Diabetic eye exam: 03/21/24 with [facility] and seen 01/09/25 with [facility] -Continue lifestyle modifications -Followed by Dr. Warner natural science curator -Previously intolerant to metformin. Actos was stopped [...] EST): Diabetes is not controlled. Followed by Gravel Screener, Dr. Warner, note from 10/16/24 reviewed -has Dexacom GCM Lab Results Component Value Date HGBA1C 8.4 (A) 12/03/2024 HGBA1C 9.3 (A) 07/18/2024 HGBA1C 9.7 (A) 05/25/2023 Lab Results Component Value Date CREATININE 0.69 01/07/2025 EGFR >60 01/07/2025 MICROALBCREU TNP 12/03/2024 MICROALBCREU TNP 12/07/2023 LDLCHOLCAL 49 12/03/2024 -Orlin/Arb: lisinopril 5mg -Statin therapy: atorvastatin 80mg -Diabetic eye exam: 03/21/24 with [facility] and seen 01/09/25 with [facility] -Continue lifestyle modifications -Followed by Dr. Warner natural science curator -Previously intolerant to metformin. Actos was stopped [...] EDT): Diabetes is not controlled. Followed by Gravel Screener, Dr. Warner, note from 10/16/24 reviewed -has Dexacom GCM Lab Results Component Value Date HGBA1C 8.4 (A) 12/03/2024 HGBA1C 9.3 (A) 07/18/2024 HGBA1C 9.7 (A) 05/25/2023 - Lab Results Component Value Date CREATININE 0.79 11/12/2024 EGFR >60 11/12/2024 MICROALBCREU TNP 12/07/2023 MICROALBCREU 12.7 10/14/2022 LDLCHOLCAL 77 10/14/2022 -Orlin/Arb: lisinopril 5mg -Statin therapy: atorvastatin 80mg -Diabetic eye exam: 03/21/24 with [facility] -Continue lifestyle modifications -Followed by Dr. Warner natural science curator -continue Jardiance 25 daily -per Endo 02/06/25 [...] EDT): Diabetes is not controlled. Followed by Gravel Screener, Dr. Warner -has Dexacom GCM Lab Results Component Value Date HGBA1C 9.7 (A) 05/25/2023 HGBA1C 9.1 (A) 01/24/2023 HGBA1C 8.9 (A) 08/18/2022 - Lab Results Component Value Date CREATININE 0.81 10/14/2022 EGFR >60 10/14/2022 MICROALBCREU 12.7 10/14/2022 MICROALBCREU TNP 04/06/2022 LDLCHOLCAL 77 10/14/2022 -Orlin/Arb: lisinopril 5mg -Statin therapy: atorvastatin 80mg -Diabetic eye exam: at [facility] with [facility] 06/22/2022 -Diabetic foot exam: -Continue lifestyle modifications -Continue current medications -Followed by Dr. Warner natural science curator -continue Trulicity 4.5mg weekly -continue Jardiance 25 daily -continue humulin R U 500 0 units tid Assessment & Plan (05/25/2023 10:47 AM EDT): Diabetes is not controlled. Followed by Gravel Screener, Dr. Warner -has Dexacom GCM Lab Results Component Value Date HGBA1C 9.1 (A) 01/24/2023 HGBA1C 8.9 (A) 08/18/2022 Lab Results Component Value Date MICROALBUR 13.0 10/14/2022 CREATININE 0.81 10/14/2022 -Seen by endocrinology on 10/12/2022. No changes made. -Changes: None -Orlin/Arb: lisinopril 5mg -Statin therapy: atorvastatin 80mg -Diabetic eye exam: at [facility] with Gopal Madhavi 06/22/2022 -Diabetic foot exam: -Continue lifestyle modifications -Continue current medications -Followed by Dr. Warner natural science curator -continue Trulicity 4.5mg weekly -continue Jardiance 25 daily -Continue humulin R U 500 0 units tid Assessment & Plan (01/24/2023 12:08 PM EST): Diabetes is not controlled. Followed by Gravel Screener, Dr. Warner -has Dexacom GCM Lab Results Component Value Date HGBA1C 9.1 (A) 01/24/2023 HGBA1C 8.9 (A) 08/18/2022 Lab Results Component Value Date MICROALBUR 13.0 10/14/2022 CREATININE 0.81 10/14/2022 -Seen by endocrinology on 10/12/2022. No changes made. -Changes: None -Orlin/Arb: lisinopril 5mg -Statin therapy: atorvastatin 80mg -Diabetic eye exam: at [facility] with Gopal Hendrickson 06/22/2022 -Diabetic foot exam: -Continue lifestyle modifications -Continue current medications -Followed by Dr. Warner natural science curator -continue Trulicity 4.5mg weekly -continue Jardiance 25 [...] current medications Lateral epicondylitis 01/10/2012 Morbid obesity ([facility]/HCC) 01/10/2012 Assessment & Plan (12/03/2024 10:18 AM EDT): Multiple joint pain 01/10/2012 Obstructive sleep apnea syndrome 01/10/2012 Overview (01/24/2023): Does not tolerate CPAP-pt willing to be evaluated again by sleep med and check how can improve use of machine ,explained importance to pt for tx -Will try to refer in [facility] 01/24/2023 Assessment & Plan (12/03/2024 10:01 [...] for tx -Will try to refer in [facility] 01/24/2023 Assessment & Plan (01/24/2023 11:12 AM EST): Does not tolerate CPAP-pt willing to be evaluated again by sleep med and check how can improve use of machine ,explained importance to pt for tx -Will try to refer in [facility] 01/24/2023 Assessment & Plan (08/18/2022 [...] hb1ac is 8.9-per pt improving following w natural science curator -last echo in chart 12/2021: ef 50-60%, [...] ablation and after it, clearance from his unarmed security officer prior to have eye surgery --I will have this note fax to his eye doctor today -if pt is cleared from his unarmed security officer then pt will need to hold on pradaxa the morning of procedure unless indicated differently by his unarmed security officer,hold as well PO meds in am of procedure and to use half insuline basal insuline at night prior surgery. Also pt will need to check with his unarmed security officer if prior eye surgery will need to hold digoxin and diltiazem if meds are going to be continued after ablation. -I called today as well to his unarmed security officer at # [phone] at [facility] and left my phone info to get a call back to discuss with unarmed security officer, I also inform pt to discuss w his unarmed security officer at his upcoming visit in 2 days [...] Type Department Care Team Description 02/20/2025 Refill [facility] [place] [address] Hillary Zamora MD Chronic atrial fibrillation (CMS/HCC) (HCC) 02/19/2025 Travel 02/15/2025 11:30 AM EST Clinical Support [facility] [place] [address] Lety Lopez RN Memory change 02/15/2025 Telephone [facility] [place] [address] Hillary Zamora MD Care Coordination 02/15/2025 Travel 02/04/2025 9:00 AM EST Office Visit [facility] [place] [address] Hillary Zamora MD Memory loss (Primary Dx); Type 2 diabetes mellitus with diabetic polyneuropathy, with long-term current use of insulin ([facility]); Weight loss; Loss of appetite; Positive colorectal cancer screening using Cologuard test; Unintentional weight loss 02/04/2025 Orders Only GENERIC EXTERNAL DATA DEPARTMENT Provider, Generic External Data 02/04/2025 Telephone [facility] [place] [address] Hillary Zamora MD Care Coordination 02/04/2025 Travel 01/30/2025 Telephone [facility] [place] [address] Hillary Zmaora MD chartprep 01/07/2025 Orders Only GENERIC EXTERNAL DATA DEPARTMENT Provider, Generic External Data 01/03/2025 10:00 AM EDT Office Visit [facility] [place] [address] Suzette Alvares MD Multiple joint pain (Primary Dx) 01/03/2025 Travel 12/19/2024 Telephone [facility] [place] [address] Hillary Zamora MD 12/12/2024 Orders Only GENERIC EXTERNAL DATA DEPARTMENT Provider, Generic External Data 12/03/2024 9:00 AM EDT Office Visit [facility] [address] [place] [phone] Hillary Zamora MD Obstructive sleep apnea syndrome [...] health status; Morbid obesity (CMS/HCC) 12/03/2024 Telephone [facility] [address] [place] [phone] Hillary Zamora MD [facility] 12/03/2024 Travel 11/30/2024 Telephone [facility] [address] [place] [phone] Sheri Rivera MA from Last 3 Months [...] Description 03/18/2025 11:30 AM EST Office Visit [facility] [address] [place] [address] Hillary Zamora MD [address] [place] [address] 03/19/2025 12:45 PM EST Office Visit [facility] [address] [place] [address] Raquel Olvera [address] [place] [address] 05/23/2025 2:00 PM EDT Office Visit [facility] [address] [place] [address] Meri Mauricio, OD [address] [place] [address] Health Maintenance Due Date Last Done Comments [...] Care Plan Weekly blood pressure task No lAyce Bradford MA Help patients manage their type [...] Plan Weekly blood pressure task No Hillary Zamoar MD Weekly blood pressure task Care Plan [...] Blood Count 4.2(L) 4.8 - 10.8 X10*3/uL [facility] Red Blood Count 4.70 4.60 - 5.80 X10*6/uL [facility] Hemoglobin 15.0 14.0 - 18.0 g/dl [facility] Hematocrit 45.2 42.0 - 52.0 % [facility] Mean Corpuscular Volume 96.2 80.0 - 98.0 fL [facility] Mean Corpuscular Hemoglobin 31.9 27.0 - 33.0 pg [facility] Mean Corpuscular HGB Conc 33.2 31.0 - 36.0 g/dl [facility] Red Cell Distribution Width 13.1 11.0 - 16.0 % [facility] Platelet Count 181 160 - 400 X10*3/uL [facility] Mean Platelet Volume 9.7 9.4 - 12.4 fL [facility] Neutrophils Percent Auto 48.7 45 - 73 % [facility] Imm Gran Pct Auto 0.5(H) 0.0 - 0.4 % [facility] Lymphocytes Percent Auto 38.2 20 - 40 % [facility] Monocytes Percent Auto 8.1 2 - 11 % [facility] Eosinophils Percent Auto 3.3 0 - 4 % [facility] Basophils Percent Auto 1.2 0 - 2 % [facility] NRBC Pct Auto 0.0 0.0 - 0.2 /100WBC [facility] Neutrophils Absolute Auto 2.1 2.0 - 8.3 x10*3/uL [facility] Imm Gran Abs Auto 0.02 0.00 - 0.03 X10*3/uL [facility] Lymphocytes Absolute Auto 1.6 1.2 - 4.9 X10*3/uL [facility] Monocytes Absolute Auto 0.3 0.1 - 1.2 X10*3/uL [facility] Eosinophils Absolute Auto 0.1 0.0 - 0.4 X10*3/uL [facility] Basophils Absolute Auto 0.1 0.0 - 0.2 X10*3/uL [facility] NRBC Abs Auto 0.000 0.0 - 0.012 X10*3/uL [facility] Blood Venous blood specimen / Unknown 02/04/2025 9:46 AM EST 02/04/2025 11:16 AM EST Hillary Zamora MD LAB BLOOD ORDERABLES Final Result [facility] [address] [place] [address] [phone] * HIV-1/2 Antigen and Antibodies, Fourth Generation, with Reflexes (02/04/2025 9:46 AM EST) [facility] HIV AB/AG Nonreactive Nonreactive [facility] Comment:HIV-1 p24 Ag and/or HIV-1/HIV-2 Ab not detected.A test result that is nonreactive does not exclude thepossibility of exposure to or infection with HIV-1 and/orHIV-2. Nonreactive results in this assay for individualswith prior exposure to HIV-1 and/or HIV-2 may be due toantigen and antibody levels that are below the limit ofdetection of this assay.The [facility] HIV Ag/Ab Combo assay result andsupplemental assay results should be interpreted inconjunction with the patient's clinical presentation,history and other laboratory results. If the results areinconsistent with clinical evidence, additional testing issuggested to confirm the result. Blood Venous blood specimen / Unknown 02/04/2025 9:46 AM EST 02/04/2025 11:10 AM EST Hillary Zamora MD LAB BLOOD ORDERABLES Final Result [facility] [address] [place] [address] [phone] * (ABNORMAL) CBC (02/04/2025 9:46 AM EST) [facility] White Blood Count 4.6(L) 4.8 - 10.8 X10*3/uL [facility] Red Blood Count 4.57(L) 4.60 - 5.80 X10*6/uL [facility] Hemoglobin 14.7 14.0 - 18.0 g/dl [facility] Hematocrit 44.3 42.0 - 52.0 % [facility] Mean Corpuscular Volume 96.9 80.0 - 98.0 fL [facility] Mean Corpuscular Hemoglobin 32.2 27.0 - 33.0 pg [facility] Mean Corpuscular HGB Conc 33.2 31.0 - 36.0 g/dl [facility] Red Cell Distribution Width 13.1 11.0 - 16.0 % [facility] Platelet Count 179 160 - 400 X10*3/uL [facility] Mean Platelet Volume 10.0 9.4 - 12.4 fL [facility] NRBC Pct Auto 0.0 0.0 - 0.2 /100WBC [facility] NRBC Abs Auto 0.000 0.0 - 0.012 X10*3/uL [facility] 02/04/2025 9:46 AM EST 02/04/2025 11:16 AM EST us Generic External Data Provider LAB BLOOD ORDERAB LES Final Result Performing Organization Address City/[facility]/ZIP Co de Phone Number [facility] [address] [place] [address] [phone] * (ABNORMAL) Basic Metabolic Panel (02/04/2025 9:46 AM EST) Only the most recent of3 resultswithin the time period is included. [facility] Sodium 142 135 - 145 mmol/L [facility] Potassium 4.5 3.3 - 5.1 mmol/L [facility] Chloride 107 96 - 108 mmol/L [facility] Carbon Dioxide 28 22 - 29 mmol/L [facility] Anion Gap 12 12 - 20 [facility] Urea Nitrogen (BUN) 11 9 - 16 mg/dL [facility] Creatinine, Serum 0.66 0.5 - 1.4 mg/dL [facility] Estimated Glomerular Filt Rate >60 [facility] Comment:Chronic Kidney Disea se: Estimated GFR < 60 mL/min/1.72t5Lwidhm Kidney Disease: Estimated GFR < 15 mL/min/1.73m2 Glucose 164(H) 60 - 115 mg/dL [facility] Calcium 9.4 8.4 - 10.2 mg/dL [facility] 02/04/2025 9:46 AM EST 02/04/2025 11:10 AM EST us Generic External Data Provider LAB BLOOD ORDERAB LES Final Result [facility] [address] [place] [phone] * (ABNORMAL) POCT glycosylated hemoglobin (Hgb A1c) (02/04/2025 9:33 AM EST) Only the most recent of2 resultswithin the time period is included. Hemoglobin A1C 8.4(A) 4.0 - 5.7 % QC Media Lot # [id number] Lot# Expiration Date [id number] Blood Capillary blood specimen / Unknown 02/04/2025 [...] Whole Blood 188(H) 60 - 115 mg/dL [facility] Comment:METER #: [id number] Testing performed in the Endocrinology Department [address] , [address], [facility]. 01/07/2025 1:17 PM EST 01/07/2025 1:34 PM EST Generic External Data Provider LAB BLOOD ORDERAB LES Final Result Performing Organization Address City/[facility]/ZIP Co de Phone Number [facility] [address] [place] [phone] * PSA,Total (12/12/2024 7:37 AM EDT) [facility] Prostate Specific Antigen 0.66 <0.05 - 4.0 ng/mL [facility] Comment:PSA methodology: Shashank ring Alimarkty i ChemiluminescentMicroparticle Immunoassay (CMIA) 12/12/2024 7:37 AM EDT 12/12/2024 7:37 AM EDT Generic External Data Provider LAB BLOOD ORDERAB LES Final Result Performing Organization Address City/[facility]/ZIP Co de Phone Number [facility] [address] [place] [phone] * Vitamin B12 (Cobalamin) and Folate Panel, Serum (12/03/2024 9:41 AM EDT) Vitamin B12 429 200 - 900 pg/mL [facility] Comment:NORMAL 200-900 PG/ML INDETERMINATE 160-199 PG/ML DEFICIENT < 160 PG/ML Folate 10.5 > or = 4.0 ng/mL [facility] Comment:Reference Values:> o r = [...] BLOOD ORDERABLES Final Result Performing Organization Address [facility]/ZIP Co de Phone Number [facility] [address] [place] [phone] * TSH with Reflex to Free T4 (12/03/2024 9:41 AM EDT) TSH reflex Free T4 1.62 0.32 - 4.0 uIU/mL [facility] Blood Venous blood specimen / Unknown 12/03/2024 9:41 AM EDT 12/03/2024 11:13 AM EDT Hillary Zamora MD LAB BLOOD ORDERABLES Final Result Performing Organization Address City/[facility]/ZIP Co de Phone Number [facility] [address] [place] [phone] * Albumin, Random Urine W/Creatinine (12/03/2024 9:41 AM EDT) Creatinine, Urine 49.28 mg/dL [facility] Microalbumin Urine <5.0 mg/L [facility] Microalbum Creatinine Ratio Ur TNP <30 ug/mg cr [facility] Comment:Unable to calculate albumin/creatinine ratio due to lowmicroalbumin or creatinine result. Urine 12/03/2024 9:41 AM EDT 12/03/2024 11:02 AM EDT Hillary Zamora MD LAB URINE ORDERABLES Final Result Performing Organization Address [facility] de Phone Number [facility] [address] [place] [phone] * Iron And Total Iron Binding Capacity (12/03/2024 9:41 AM EDT) Iron 106 45 - 160 mcg/dL [facility] Total Iron Binding Capacity 280 228 - 428 mcg/dL [facility] Percent Iron Saturation 38 15 - 50 % [facility] Unsaturated Iron Binding 174 ug/dL [facility] Blood Venous blood specimen / Unknown 12/03/2024 9:41 AM EDT 12/03/2024 11:13 AM EDT Hillary Zamora MD LAB BLOOD ORDERABLES Final Result Performing Organization Address [facility] Co de Phone Number [facility] [address] [place] [phone] * Ferritin (12/03/2024 9:41 AM EDT) Ferritin 148 20 - 250 ng/mL [facility] Blood Venous blood specimen / Unknown 12/03/2024 9:41 AM EDT 12/03/2024 11:13 AM EDT Hillary Zamora MD LAB BLOOD ORDERABLES Final Result Performing Organization Address [facility] de Phone Number [facility] [address] [place] [phone] * CEA (12/03/2024 9:41 AM EDT) Carcinoembryonic Antigen <1.73 ng/mL [facility] Comment:CEA Reference Range: 93.4% Non-Smokers [...] Organization Address City/[facility]/ZIP Co de Phone Number [facility] [address] [place] [address] [phone] * Hepatic Function Panel (12/03/2024 9:41 AM EDT) Bilirubin, Total 0.5 0.0 - 1.0 mg/dL [facility] Bilirubin, Direct 0.2 0.0 - 0.5 mg/dL [facility] Aspartate Amino Transferase 32 5 - 37 U/L [facility] Alanine Aminotransferase 35 0 - 40 U/L [facility] Total Protein 6.9 6.5 - 8.0 g/dL [facility] Albumin Level 4.4 3.5 - 5.0 g/dL [facility] Alkaline Phosphatase 85 39 - 117 U/L [facility] Blood Venous blood specimen / Unknown 12/03/2024 9:41 AM EDT 12/03/2024 11:13 AM EDT Hillary Zamora MD LAB BLOOD ORDERABLES Final Result Performing Organization Address [facility]/ZIP Co de Phone Number [facility] [address] [place] [address] [phone] * (ABNORMAL) Lipid Panel, Standard (12/03/2024 9:41 AM EDT) Triglycerides 80 <150 mg/dL [facility] Comment:Desirable Triglyceri de: less than 150 mg/dLBorderline High Triglyceride 150-199 mg/dLHigh Triglyceride: 200-499 mg/dLVery High Triglyceride: greater than or equal to 5OO mg/dL Cholesterol 97 <200 mg/dL [facility] Comment:Desirable Cholestero l: less than 200 mg/dLBorderline High Cholesterol: 200-239 mg/dLHigh Cholesterol: greater than 239 mg/dL LDL Cholesterol Calculated 49 <100 mg/dL [facility] Comment:Desirable LDL: less than 100 mg/dLNear Optimal/Above Optimal LDL: 110- 129 mg/dLBorderline High LDL: 130-159 mg/dLHigh LDL: 160-189 mg/dLVery High LDL: greater than or equal to 190 mg/dL HDL Cholesterol 32(L) >40 mg/dL [facility] Comment:Desirable HDL: great er than 40 mg/dL Note: This HDL assay may give artificially low results in patients with liver disease. Blood Venous blood specimen / Unknown 12/03/2024 9:41 AM EDT 12/03/2024 11:13 AM EDT Hillary Zamora MD LAB BLOOD ORDERABLES Final Result [facility] [address] [place] [address] [phone] * (ABNORMAL) Cologuard?? colon cancer screening (02/07/2023 7:30 AM EST) Cologuard Result Positive( A) Negative 02/15/2023 9:47 AM EST [facility] (CLIA #:[id number]) Comment: POSITIVE TEST RESULT. A positive Cologuard [...] Frost. et al, N Engl J Med 2014;370(14):4575-3165.) Cologuard may produce a false negative or [...] can be accessed at the following location: [email or web address]/results. Additional description of the Cologuard test process, warnings and precautions can be found at [email or web address].[email or web address]. Stool specimen (specimen) 02/07/2023 7:30 AM EST 02/08/2023 3:13 PM EST us Hillary Zamora MD LAB MOLECULAR DIAGNOSTICS ORDERABLES Final Result [facility] (CLIA #:[id number]) [address] [place] [address], * Hepatitis C Antibody Reflex (10/14/2022 11:04 AM EDT) Hepatitis C Antibody Nonreactive Nonreactive [facility] Comment:Antibodies to HCV no t detected; does not exclude early acuteHCV infection. 10/14/2022 11:0 4 AM EDT 10/14/2022 12:57 PM EDT Hillary Zamora MD LAB BLOOD ORDERABLES Final Result [facility] [address] [place] [address] [phone] * Diabetes Eye Exam (06/22/2022) Eye Exam Normal Normal Comment:[facility] Historical Provider HEALTH [...] Insurance [employer] ONE CARE < 65 [facility] Advance Directives Documents on File Type Date Recorded Patient Staff Scientist Expl anation Advance Directives and Living Will 12/04/2024 Health Care Proxy 12/03/24 Care Teams Roll Hauler Relationship Specialty Start Date End Date Sera, MD Hillary [address] [place] [phone] PCP - General Family Medicine 03/07/18 Orlando Warner MD [address] [place] [address] Endocrinology 03/29/24 Layla Marrufo NP [address] [place] [address] Urology 04/05/24 Meri Mauricio OD [address] [place] [address] Optometry 04/17/24 Matias Marcelino MD [address]rd [place] [address] Cardiology 09/06/24 Teetee Zacarias INDUSTRIAL ENGINEERING DIRECTOR Endocrinology 03/29/24 [facility] 01/09/25
--- OUTSIDE RECORDS SUMMARY | 2025-02-22 07:24 | XMS_ITS | Encounter Summary ---
Author Organization [employer] Address [address] [facility] [address]t [place] [address] Care Team Providers Care Engineer Chief Name Role Phone Hillary Zamora MD Primary Care Provider [phone] Orlando Warner MD Unavailable Layla Marrufo NP Unavailable Meri Mauricio OD Unavailable Matias Marcelino MD Unavailable [phone] Reason for Visit * Reason Onset Date Comments Care Coordination 02/15/2025 Encounter Details Date Type Department Care Team (Late st Contact Info) Description 02/15/2025 Telephone [facility] MEDICINE [address] [place], [place] [phone] Hillary Zamora MD [address] [place], [place] [phone] Care Coordination Social History Tobacco Use Types [...] encounter Miscellaneous Notes * Telephone Encounter - Karla Cornejo RN - 02/21/2025 11:07 AM EST Telephone call placed to [facility] who states they received referral, pt notbooked yet. Telephone call placed to [facility]. Spoke with Aidan who reported telecommunications support pt was referred to is [facility]. Telephone call placed to pt. No answer, left v/m. Sent secure text through [employer] to pt with contact information for all of his specialists (GI, Neuro, and podiatry) so he can call each one to schedule. * Telephone Encounter - Lety Lopez RN - 02/15/2025 11:55 AM EST During nurse visit for MOCA evaluation, pt expressed uncertainty about multiple speciality appointments. RN team to help clarify when pt has which appts and convey this to him - [facility] GI - 02/26/25 at 11:30 for colonoscopy consult. Pt states he is travelling to visit family that day. Gave him # to reschedule. Call pt to see if rescheduled. - [facility] Neurology - call to see when appointment is - podiatry - unclear where this is, was referred from Endo. Pt had appointment 02/11/25, missed this, needs to reschedule. documented in this encounter Plan of Treatment Upcoming Encounters Date Type Department Care Team (Late st Contact Info) Description 03/18/2025 11:30 AM EST Office Visit [facility] MEDICINE [address] [place] [address] Hillary Zamora MD [address] [place] [address] 03/19/2025 12:45 PM EST Office Visit [facility] ADULT DENTAL [address] [place] [address] Wade, Raquel [address] [place] [address] 05/23/2025 2:00 PM EDT Office Visit [facility] OPTOMETRY [address] [place] [address] Meri Mauricio, OD [address] [place] [address] documented as of this encounter Goals Goal [...] Plan Patient has chronic kidney disease No Hlilary Zamora MD Weekly blood pressure task Care [...] documented as of this encounter Care Teams Engineer Chief Relationship Specialty Start Date End Date Hillary Zamora MD [address] [place] [address] PCP - General Family Medicine 03/07/18 Orlando Warner MD [address] [place] [address] Endocrinology 03/29/24 Layla Marrufo NP [address] [place] [address] Urology 04/05/24 Meri Mauricio OD [address] [place] [address] Optometry 04/17/24 Matias Marcelino MD [address] [place] [address] Cardiology 09/06/24 Teetee Zacarias TELEPHONE MECHANIC Endocrinology 03/29/24 [facility] 01/09/25 documented as of this encounter
--- OUTSIDE RECORDS SUMMARY | 2025-02-22 07:24 | XMS_ITS | Encounter Summary ---
Author Organization [employer] Address [address] [facility] [address] [place] [address] Care Team Providers Care Environment Artist Name Role Phone Hillary Zamora MD Primary Care Provider [phone] Orlando Warner MD Unavailable Layla Marrufo NP Unavailable Meri Mauricio OD Unavailable Matias Marcelino MD Unavailable Encounter Details Date Type Department Care Team (Late st Contact Info) Description 04/17/2024 Orders Only [facility] MEDICINE [address] [place], [place] [phone] Hillary Zamora MD [address] [place], [place] [phone] Type 2 diabetes mellitus with hyperglycemia, with [...] Description 03/18/2025 11:30 AM EST Office Visit [facility] MEDICINE [address] [place] [address] Hillary Zamora MD [address] [place] [address] 03/19/2025 12:45 PM EST Office Visit [facility] ADULT DENTAL [address] [place] [address] Wade Raquel [address] [place] [address] 05/23/2025 2:00 PM EDT Office Visit [facility] OPTOMETRY [address] [place] [address] Meri Mauricio, OD [address] [place] [address] documented as of this encounter Visit Diagnoses [...] documented as of this encounter Care Teams Environment Artist Relationship Specialty Start Date End Date Hillary Zamora MD [address] [place] [address] PCP - General Family Medicine 03/07/18 Orlando Warner MD [address] [place] [address] Endocrinology 03/29/24 Layla Marrufo NP [address] [place] [address] Urology 04/05/24 Meri Mauricio OD [address] [place] [address] Optometry 04/17/24 Matias Marcelino MD [address] [place] [address] Cardiology 09/06/24 Teetee Zacarias GAS GENERATOR OPERATOR Endocrinology 03/29/24 [facility] 01/09/25 documented as of this encounter
--- OUTSIDE RECORDS SUMMARY | 2025-02-22 07:24 | XMS_ITS | Encounter Summary ---
Author Organization [employer] Address [address] [place] [address] Care Team Providers Care Permanent Waver Name Role Phone Sera, Hillary ONTIVEROS Primary Care Provider [phone] Orlando Warner MD Unavailable [phone] Layla Marrufo NP Unavailable Meri Mauricio OD Unavailable [phone] Matias Marcelino MD Unavailable [phone] Encounter Details Date Type Department Care Team [...] Description 03/18/2025 11:30 AM EST Office Visit [facility] MEDICINE [address] [place] [address] Hillary Zamora MD [address] [place] [address] 03/19/2025 12:45 PM EST Office Visit [facility] ADULT DENTAL [address] [place] [address] Wade, Raquel [address] [place] [address] 05/23/2025 2:00 PM EDT Office Visit [facility] OPTOMETRY [address] [place] [address] Meri Mauricio, GERTRUDE [address] [place] [address] documented as of this encounter Goals Goal [...] documented as of this encounter Care Teams Permanent Waver Relationship Specialty Start Date End Date Hillary Zamora MD [address] [place] [address] PCP - General Family Medicine 03/07/18 Orlando Warner MD [address] [place] [address] Endocrinology 03/29/24 Layla Marrufo NP [address] [place] [address] Urology 04/05/24 Meri Mauricio OD [address] [place] [phone] Optometry 04/17/24 Matias Marcelino MD [address] [place] [address] Cardiology 09/06/24 Teetee Zacarias SALES ACCOUNT DIRECTOR Endocrinology 03/29/24 [facility] 01/09/25 documented as of this encounter
[2025-02-22 09:46] LABS: HBS Num1 5.02 mIU/mL (0-7.99); HBc Num1 0.20 S/CO (0.00-0.79); HBsAGNum1 0.46 S/CO (0.00-0.99); Hepatitis A Antibody IgM 0.18 Index (0-0.79); Hepatitis B Surface Antigen Negative (Negative); ~HepC Num1 0.16 S/CO (0.00-0.79); ~Hepatitis A Antibody IgM Nonreactive (Nonreactive); ~Hepatitis B Surface Antibody NONREACTIVE (Nonreactive); ~Hepatitis C Antibody Nonreactive (Nonreactive)
== END 2025-02-22 07:21 | disposition home or self-care (01) ==
LOC: HO.LAB 07:20
PROVIDERS: PCP Family Medicine; Visit Provider Nurse Practitioner Family
DX: R63.4 Abnormal weight loss (principal); Z01.84 Encounter for antibody response examination
CPT/HCPCS: 36415; 86704; 86706; 86709; 86803; 87340